=== PATIENT | male | born 1985 | race Two or more races ===

== ENCOUNTER 2021-11-12 21:00 | Inpatient (IN) | payer MEDICAID ==
[~2021-11-12] VITALS: Ht 195.6 cm; Wt 130.1 kg
[2021-11-13] MEDS ORDERED: mag hydrox/Alum hydrox/simeth 30ml oral suspension PO PRN (16:35)
[2021-11-13] MEDS ORDERED: loperamide 2mg capsule PO PRN (16:35)
[2021-11-13] MEDS ORDERED: magnesium hydroxide 30ml (MOM) UD suspension PO PRN (16:35)
[2021-11-13] MEDS ORDERED: nicotine 21mg patch - 24 hr TD ONE (16:35)
[2021-11-13] MEDS: acetaminophen 325mg tablet PO PRN ×2 (16:59→18:47)
[2021-11-13] MEDS ORDERED: benztropine 1 mg/ml 2ml ampule IM ONE (17:10)
[2021-11-13] MEDS ORDERED: LORazepam 2 mg/ml vial IM ONE (17:10)
--- NOTE | 2021-11-13 17:57 | NUR ---
Pt admitted from [facility] in [place]. Pt. appeared to be experiencing EPS upon arrival to unit, client appeared agitated, stating he was unable to control his eye movements with his eyes fixed to the ceiling. IM Ativan and Benadryl administered with effective results. Pt. experiencing auditory hallucinations telling him to kill himself and he should be . Pt. placed on 5150 for DTS/GD.
[2021-11-13] MEDS ORDERED: FLU VACC QS2021-22(6MOS UP)/PF 60 MCG/0.5 ML SYRINGE IM ONE (18:05)
[2021-11-13] MEDS ORDERED: pneumococcal 23-VAL P-sac vacc 25 mcg/0.5ml vial IMVAC ONE (18:05)
[2021-11-13 19:31] VITALS: BP 136/85
[2021-11-13] MEDS ORDERED: LORA-269 PO ×2 (20:53→21:28)
[2021-11-13] MEDS ORDERED: DIVA-81 PO (20:53)
[2021-11-13] MEDS ORDERED: OLAN-1 PO (20:53)
[2021-11-13] MEDS ORDERED: DIVA500T9 PO ×2 (20:53→21:28)
[2021-11-13] MEDS ORDERED: LORazepam 1 MG tablet PO PRN (21:05)
[2021-11-13] MEDS ORDERED: DIVA500T39 PO (21:06)
[2021-11-13] MEDS ORDERED: [UNRECOGNIZED DRUG - CODE] PO (21:07)
[2021-11-13] MEDS ORDERED: [UNRECOGNIZED DRUG - CODE] PO (21:09)
[2021-11-13] MEDS ORDERED: clonazePAM 0.5mg tablet PO PRN (21:10)
[2021-11-13] MEDS ORDERED: divalproex 250mg tablet, delayed-release PO SCH (21:10)
[2021-11-13] MEDS ORDERED: divalproex sodium 500mg tablet.DR PO SCH (21:10)
[2021-11-13] MEDS: OLANZapine 5mg rapidly disint. tablet PO SCH (21:18)
[2021-11-13] MEDS: traZODone 50mg tablet PO PRN ×2 (21:19→22:13)
[2021-11-13] MEDS ORDERED: DIVA250T8 PO (21:28)
[2021-11-13] MEDS ORDERED: LORazepam 0.5 MG tablet PO PRN (21:30)
[2021-11-13] MEDS ORDERED: hydrocort. acetate/pramoxine 10gm bottle RC PRN (23:00)
--- NOTE | 2021-11-14 03:00 | NUR ---
Nursing Progress Note: Legal hold: 5150 Client on involuntary status for DTS/DG Report received from CASSANDRA Whittington with use of SBAR Why they are here: Pt admitted from [facility] in [place]. Pt. appeared to be experiencing EPS upon arrival to unit, client appeared agitated, stating he was unable to control his eye movements with his eyes fixed to the ceiling. IM Ativan and Benadryl administered with effective results. Pt. experiencing auditory hallucinations telling him to kill himself and he should be . Pt. placed on 5150 for DTS/GD. Assessment What has happened this shift? Patient was found standing in [address] at change of shift. Patient was polite and cooperative. Patient displayed manic behavior and kept asking for medications including ones he didnt have scheduled. Patient first asked for Tylenol for his right foot pain. Then he ask the nurse if he could have something for his hemorrhoids that had burst. Nurse messaged and got an order for Proctofoam-hc. Patient was given scheduled Flu vaccine in L arm and Pneumonia vaccine in R arm. Patient took night medications including prn trazodone. Patient had to be given trazodone repeat. Patient was very talkative and spent a majority of the shift pacing around the unit and fidgeting with his headphones. S/I, H/I: Denies A/VH: Denies Sleep: See sleep assessment ADL's: independent Group attendance: n/a Were meds taken: Yes Any med S/E: None Mental Status Exam Appearance: Younger male, disheveled, dressed in scrubs Eye contact: Good Behavior: Cooperative, talkative Speech: Clear Mood: manic Affect: Blunted with some brightening Thought process: Linear Thought Content: medications Cognition: A&O X4 Insight: Poor Judgment: Poor Interventions PRN's used: Trazodone x2, Tylenol Therapeutic interventions: Maintained a safe and therapeutic environment, ensured contract for safety, provided clear and simple instructions, monitored behaviors and need for intervention, provided active listening and positive encouragement, encouraged participation on the unit, and maintained q 15min safety checks. Restraints/seclusion/emergency medication: N/A Justification of Continued Inpatient Treatment: DANIEL pt. just had a recent medication adjustment and requires time to allow medications to reach their therapeutic effect. He will discharge sometime next week.
[2021-11-14 07:13] VITALS: BP 133/77
[2021-11-14] MEDS: OLANZapine 5mg rapidly disint. tablet PO SCH (07:30)
[2021-11-14] MEDS: nicotine 21mg patch - 24 hr TD SCH (07:31)
[2021-11-14 07:44] LABS: HEMOGLOBIN A1C 5.5 % (4.5-6.2)
[2021-11-14] MEDS: acetaminophen 325mg tablet PO PRN ×2 (07:55→19:55)
[2021-11-14 09:43] LABS: CHOL/HDL RATIO 3.1 (0.00-4.99); CHOLESTEROL 129 MG/DL (0-200); HDL CHOLESTEROL 41 MG/DL (35-60); TRIGLYCERIDES 70 MG/DL (20-135)
[2021-11-14 09:45] LABS: LDL CHOLESTEROL 76 MG/DL (50-100)
[2021-11-14] MEDS ORDERED: haloperidol lactate 5mg/ml inj ONE (11:19)
[2021-11-14] MEDS ORDERED: diphenhydrAMINE 50 mg/ml inj ONE (11:19)
[2021-11-14] MEDS ORDERED: LORazepam 2 mg/ml vial IM ONE (11:35)
--- NOTE | 2021-11-14 11:56 | NUR ---
EMERGENCY IM Pt was pacing the hallway, becoming increasingly agitated, stating that he doesn't want to be here and he hates taking Zyprexa. He was sitting in the rec room with his fists balled up, so called DANIEL Delgado, during the phone call patient became more aggressive, screaming profanities. Haldol 10 mg IM, Benadryl 50 mg IM, and Ativan 2 mg IM were ordered. Security was at the bedside while injection was administered, and pt was cooperative with the process. 10 min after the injection, pt apologized to staff, stating "I just get so sick of this. I always feel suicidal".
[2021-11-14] MEDS: ibuprofen 200mg tablet PO PRN (15:16)
[2021-11-14] MEDS: NICOTINE POLACRILEX 2 MG LOZENGE BC PRN (17:06)
--- NOTE | 2021-11-14 17:10 | NUR ---
Nursing Progress Note: Legal hold: 5150 Client on involuntary status for DTS/DG Report received from CASSANDRA [place] with use of SBAR Why they are here: Pt admitted from [facility] in [place]. Pt. appeared to be experiencing EPS upon arrival to unit, client appeared agitated, stating he was unable to control his eye movements with his eyes fixed to the ceiling. IM Ativan and Benadryl administered with effective results. Pt. experiencing auditory hallucinations telling him to kill himself and he should be . Pt. placed on 5150 for DTS/GD. Assessment What has happened this shift: Patient is resting quietly in bed at the start of the shift. Cooperative with 1:1 assessment and medications. Endorses hearing voices which he describes as sounding demonic and which tell him to kill himself. Complains of anxiety r/t hearing voices. PRN Ativan is given which appears somewhat helpful. In the late morning the patient has an episode of yelling and swearing. Provider is notified who gives an order for IM Benadryl/ Haldol/ Ativan which is effective. S/I, H/I: Denies A/VH: Denies Sleep: 1 hour in the morning ADL's: Independent Group attendance: No Were meds taken: Yes Any med S/E: None observed or reported Mental Status Exam Appearance: Younger male, disheveled, dressed in scrubs Eye contact: Poor Behavior: Cooperative Speech: Clear, normal rate/ volume Mood: Fine. Affect: Blunted with some brightening Thought process: Circumstantial Thought Content: Demonic voices that tell him to kill himself. Cognition: A&O X4 Insight: Poor Judgment: Poor Interventions PRN's used: Tylenol, Ativan Therapeutic interventions: Maintained a safe and therapeutic environment, ensured contract for safety, provided clear and simple instructions, monitored behaviors and need for intervention, provided active listening and positive encouragement, encouraged participation on the unit, and maintained q 15min safety checks. Restraints/seclusion/emergency medication: IM Benadryl/ Haldol/ Ativan Justification of Continued Inpatient Treatment: PA pt. just had a recent medication adjustment and requires time to allow medications to reach their therapeutic effect. He will discharge sometime next week.
[2021-11-14] MEDS: LORazepam 0.5 MG tablet PO PRN (18:29)
[2021-11-14 19:59] VITALS: BP 133/91
[2021-11-14] MEDS: divalproex sod 250mg ER (24-hour) tablet PO SCH (20:04)
[2021-11-14] MEDS: prazosin 1mg capsule PO SCH (20:04)
[2021-11-14] MEDS: traZODone 50mg tablet PO PRN (20:05)
[2021-11-14] MEDS ORDERED: divalproex sod 250mg ER (24-hour) tablet PO SCH (21:00)
--- NOTE | 2021-11-15 01:11 | NUR ---
Nursing Progress Note: Legal hold: 5150 Client on involuntary status for DTS/DG Report received from CASSANDRA Whittington with use of SBAR Why they are here: Pt admitted from [facility] in [place]. Pt. appeared to be experiencing EPS upon arrival to unit, client appeared agitated, stating he was unable to control his eye movements with his eyes fixed to the ceiling. IM Ativan and Benadryl administered with effective results. Pt. experiencing auditory hallucinations telling him to kill himself and he should be . Pt. placed on 5150 for DTS/GD. Assessment What has happened this shift: Patient found nurse at change of shift. Patient asked nurse for some anxiety medication. Nurse gave patient prn Ativan. Patient then came to nurse asking for Tylenol for his foot. Patient came up to tech 20 minuets later stating he is feeling anxious and suicidal. Tech offered patient warm broth and assisted him to his room to lay down. Nurse checks on patient a few minuets later and patient asked if he could have another B2 shot. Nurse encouraged patient to allow time for the Ativan to kick in while charge calls doctor to see if we can have B2 on stand by in case the Ativan isn't enough. Nurse checked on patient a little while later and patent was observed laughing and talking with other patients. Patient took all night medications including prn trazodone to help him sleep. Patient took medications without issue and went to bed. S/I, H/I: Denies A/VH: Denies Sleep: See sleep assessment ADL's: Independent Group attendance: No Were meds taken: Yes Any med S/E: None observed or reported Mental Status Exam Appearance: Younger male, disheveled, dressed in personal clothing Eye contact: Poor Behavior: Cooperative Speech: Clear, normal rate/ volume Mood: Fine. Affect: Blunted with some brightening Thought process: Circumstantial Thought Content: Getting another B2 shot Cognition: A&O X4 Insight: Poor Judgment: Poor Interventions PRN's used: Tylenol, Ativan Therapeutic interventions: Maintained a safe and therapeutic environment, ensured contract for safety, provided clear and simple instructions, monitored behaviors and need for intervention, provided active listening and positive encouragement, encouraged participation on the unit, and maintained q 15min safety checks. Restraints/seclusion/emergency medication: IM Benadryl/ Haldol/ Ativan Justification of Continued Inpatient Treatment: DANIEL pt. just had a recent medication adjustment and requires time to allow medications to reach their therapeutic effect. He will discharge sometime next week.
[2021-11-15] MEDS: nicotine 21mg patch - 24 hr TD SCH (07:29)
[2021-11-15] MEDS: PALIPERIDONE 3 MG TAB.ER.24 PO SCH (07:29)
[2021-11-15 07:56] VITALS: BP 140/100
[2021-11-15] MEDS: ibuprofen 200mg tablet PO PRN (08:12)
[2021-11-15] MEDS: LORazepam 0.5 MG tablet PO PRN (08:12)
[2021-11-15] MEDS: acetaminophen 325mg tablet PO PRN ×2 (10:59→16:28)
[2021-11-15] MEDS ORDERED: OLANZapine 5mg rapidly disint. tablet PO ONE (11:30)
[2021-11-15] MEDS ORDERED: paliperidone palmitate inj 234 MG/1.5 ML SYRINGE IM ONE (12:25)
[2021-11-15] MEDS ORDERED: clonazePAM 0.5mg tablet PO ONE (13:00)
[2021-11-15] MEDS ORDERED: diphenhydrAMINE 50 mg/ml inj ONE ×2 (13:29→16:53)
[2021-11-15] MEDS ORDERED: haloperidol lactate 5mg/ml inj ONE ×2 (13:30→16:53)
[2021-11-15] MEDS ORDERED: LORazepam 2 mg/ml vial IM ONE ×2 (13:40→17:05)
--- NOTE | 2021-11-15 14:45 | NUR ---
Psychosocial assessment. Christophe is a 36 y/o male who was placed on 5150 by [facility] for danger to self and grave disability. Christophe was initially placed on 5150 on 11/04/21 and was positive for Covid. He continues to endorse SI with a plan to rip his eyes out. He reported command auditory hallucinations telling him to kill himself . He has a long history of mental health treatment and was released from [facility] in 2020. He reported on-going SI with worsening symptoms since being released from [facility]. Christophe reported he was living with his brother in [place] but has "disowned" his family is now homeless. He was fixated on ways to kill himself and that he will do so once released. He also stated he does not feel safe. He reported he would like to be conserved again. He denied any HI. He reported command auditory hallucinations telling him to harm himself. Plan: [employer] C[employer] Supervisor will work with Christophe on a discharge plan. [employer] C[employer] Supervisor will inquire if [facility] plans on conserving him again. JOEL Casanova Addendum: 11/15/21 at 1447 by Hilary ROCA Amended: Links added.
--- NOTE | 2021-11-15 15:08 | NUR ---
Left message for Rc Powers, Clinician with [facility] (ph# [phone]), to inquire about conservatorship. JOEL Casanova
--- NOTE | 2021-11-15 15:45 | NUR ---
Nursing Progress Note: [place] Legal hold: 5150 Client on involuntary status for DTS/DG Report received from CASSANDRA [place] with use of SBAR Why they are here: Pt admitted from [facility] in [place]. Pt. appeared to be experiencing EPS upon arrival to unit, client appeared agitated, stating he was unable to control his eye movements with his eyes fixed to the ceiling. IM Ativan and Benadryl administered with effective results. Pt. experiencing auditory hallucinations telling him to kill himself and he should be . Pt. placed on 5150 for DTS/GD. Assessment What has happened this shift: Patient is resting quietly in bed at the start of the shift. Cooperative with 1:1 assessment and medications. Complains of anxiety in the morning r/t AH. PRN Ativan is given which patient states is ineffective. Headphones are given and the patient paces the unit. He states, I tried walking and that breathing exercise. I tried to lay down. I tried everything and Im still panicking. Provider notified who gives new orders for Klonopin. Klonopin is given but patient complains that it is ineffective. Patient is rubbing his eyes vigorously and stating, They keep rolling back and I cant stop them. Im going to go crazy! Agitation continues to elevate. Provider aware and gives a new order for IM Benadryl/ haldol/ ativan. Patient becomes calmer almost immediately and returns to pacing the unit. S/I, H/I: SI related to AH. No plan A/VH: Command AH telling him to kill himself Sleep: 2 hours in the morning ADL's: Independent Group attendance: Yes Were meds taken: Yes Any med S/E: None observed or reported Mental Status Exam Appearance: Younger male, disheveled, dressed in scrubs Eye contact: Poor Behavior: Cooperative Speech: Clear, normal rate/ volume Mood: anxious Affect: Blunted with some brightening Thought process: Circumstantial Thought Content: Internally preoccupied Cognition: A&O X4 Insight: Poor Judgment: Poor Interventions PRN's used: Tylenol, Motrin, Ativan Therapeutic interventions: Maintained a safe and therapeutic environment, ensured contract for safety, provided clear and simple instructions, monitored behaviors and need for intervention, provided active listening and positive encouragement, encouraged participation on the unit, and maintained q 15min safety checks. Restraints/seclusion/emergency medication: IM Benadryl/ Haldol/ Ativan Justification of Continued Inpatient Treatment: DANIEL pt. just had a recent medication adjustment and requires time to allow medications to reach their therapeutic effect. He will discharge sometime next week. Addendum: 11/15/21 at 1703 by Carmen Holland RN In the late afternoon the patient again becomes increasingly agitated grabbing his head and hitting murry and door. Provider is present who gives another order for IM benadryl/ haldol/ ativan.
[2021-11-15 19:00] VITALS: BP 90/58
[2021-11-15] MEDS: divalproex sod 250mg ER (24-hour) tablet PO SCH (20:18)
[2021-11-15] MEDS: traZODone 50mg tablet PO PRN (20:19)
[2021-11-15] MEDS: prazosin 1mg capsule PO SCH (20:19)
[2021-11-15] MEDS: clonazePAM 0.5mg tablet PO SCH (20:20)
--- NOTE | 2021-11-16 00:49 | NUR ---
Nursing Progress Note: [place] Legal hold: 5150 Client on involuntary status for DTS/DG Report received from CASSANDRA Whittington with use of SBAR Why they are here: Pt admitted from [facility] in [place]. Pt. appeared to be experiencing EPS upon arrival to unit, client appeared agitated, stating he was unable to control his eye movements with his eyes fixed to the ceiling. IM Ativan and Benadryl administered with effective results. Pt. experiencing auditory hallucinations telling him to kill himself and he should be . Pt. placed on 5150 for DTS/GD. Assessment What has happened this shift: Patient was found sleeping at beginning of shift. Patient continues to sleep all shift and does not leave his room even for snack. Patient took all night medication including requested trazodone. Patient took medications and went back to sleep. S/I, H/I: Denies A/VH: Denies Sleep: See sleep assessment ADL's: Independent Group attendance: Yes Were meds taken: Yes Any med S/E: None observed or reported Mental Status Exam Appearance: Younger male, disheveled, dressed in scrubs Eye contact: Poor Behavior: Cooperative Speech: Clear, normal rate/ volume Mood: anxious Affect: Blunted with some brightening Thought process: Circumstantial Thought Content: Internally preoccupied Cognition: A&O X3 Insight: Poor Judgment: Poor Interventions PRN's used: Therapeutic interventions: Maintained a safe and therapeutic environment, ensured contract for safety, provided clear and simple instructions, monitored behaviors and need for intervention, provided active listening and positive encouragement, encouraged participation on the unit, and maintained q 15min safety checks. Restraints/seclusion/emergency medication: IM Benadryl/ Haldol/ Ativan Justification of Continued Inpatient Treatment: PA pt. just had a recent medication adjustment and requires time to allow medications to reach their therapeutic effect. He will discharge sometime next week.
[2021-11-16 07:12] VITALS: BP 131/75
[2021-11-16] MEDS: nicotine 21mg patch - 24 hr TD SCH (07:30)
[2021-11-16] MEDS: clonazePAM 0.5mg tablet PO SCH ×2 (07:31→19:04)
[2021-11-16] MEDS: PALIPERIDONE 3 MG TAB.ER.24 PO SCH (07:31)
[2021-11-16] MEDS ORDERED: clonazePAM 0.5mg tablet PO ONE (08:00)
[2021-11-16] MEDS: acetaminophen 325mg tablet PO PRN ×2 (10:01→19:06)
[2021-11-16] MEDS: LORazepam 0.5 MG tablet PO PRN (13:07)
--- NOTE | 2021-11-16 13:08 | NUR ---
Initial: Pt admit for schizoaffective disorder. Currently on a regular diet and eating well with 100% PO intake of all meals with the exception of only 50% PO intake of starch at lunch 11/15. Overall pt meeting estimated nutrient needs. LBM 11/15. No nutrition intervention implemented at this time. Will continue to follow. Recommendations: 1) Continue regular diet 2) Monitor need for additional protein for satiety; offer snacks 3) Bowel care PRN 4) Weekly scaled weights Addendum: 11/16/21 at [address] Amended: Links added.
[2021-11-16] MEDS ORDERED: benztropine 1mg tablet PO ONE (13:30)
[2021-11-16] MEDS ORDERED: diphenhydrAMINE 50 mg/ml inj ONE (14:02)
[2021-11-16] MEDS ORDERED: haloperidol lactate 5mg/ml inj ONE (14:02)
[2021-11-16] MEDS ORDERED: LORazepam 2 mg/ml vial IM ONE (14:10)
--- NOTE | 2021-11-16 16:30 | NUR ---
Nursing Progress Note: [place] Legal hold: 5150 Client on involuntary status for DTS/DG Report received from CASSANDRA [place] with use of SBAR Why they are here: Pt admitted from [facility] in [place]. Pt. appeared to be experiencing EPS upon arrival to unit, client appeared agitated, stating he was unable to control his eye movements with his eyes fixed to the ceiling. IM Ativan and Benadryl administered with effective results. Pt. experiencing auditory hallucinations telling him to kill himself and he should be . Pt. placed on 5150 for DTS/GD. Assessment What has happened this shift: Patient is resting quietly in bed at the start of the shift. Cooperative with 1:1 assessment and medications. PRN Tylenol given for left ankle pain which appears effective. Patient complains of anxiety. PRN Ativan is given. Shortly thereafter the patient approaches nursing complaining that his eyes are rolling back in his head again and he cant stop it. Provider notified who gives order for Cogentin x1. Patient verbalizes relief from eye rolling but complains that the voices he hears are making him anxious. Patient goes to his room where he begins hitting murry and repeating, I want to ! New order for IM Benadryl/ Haldol/ Ativan is given and appears effective. S/I, H/I: SI related to AH. No plan A/VH: Command AH telling him to kill himself Sleep: 1 hour in the morning ADL's: Independent Group attendance: NA Were meds taken: Yes Any med S/E: None observed or reported Mental Status Exam Appearance: Tall man, disheveled, dressed in green unit scrubs Eye contact: Poor Behavior: Cooperative, agitated at times Speech: Clear, normal rate/ volume Mood: Terrible. Affect: Blunted Thought process: Circumstantial Thought Content: Internally preoccupied. Concerned over his eyes rolling back in his head Cognition: A&O X4 Insight: Poor Judgment: Poor Interventions PRN's used: Tylenol, Ativan Therapeutic interventions: Maintained a safe and therapeutic environment, ensured contract for safety, provided clear and simple instructions, monitored behaviors and need for intervention, provided active listening and positive encouragement, encouraged participation on the unit, and maintained q 15min safety checks. Restraints/seclusion/emergency medication: IM Benadryl/ Haldol/ Ativan Justification of Continued Inpatient Treatment: DANIEL pt. just had a recent medication adjustment and requires time to allow medications to reach their therapeutic effect. He will discharge sometime next week.
[2021-11-16] MEDS: NICOTINE POLACRILEX 2 MG LOZENGE BC PRN (17:48)
[2021-11-16 19:00] VITALS: BP 122/81
[2021-11-16] MEDS: benztropine 1mg tablet PO SCH (20:22)
[2021-11-16] MEDS: traZODone 50mg tablet PO PRN (20:22)
[2021-11-16] MEDS: prazosin 1mg capsule PO SCH (20:22)
[2021-11-16] MEDS: divalproex sod 250mg ER (24-hour) tablet PO SCH (20:22)
--- NOTE | 2021-11-16 22:34 | NUR ---
Nursing Progress Note: [place] Legal hold: 5150 Client on involuntary status for DTS/DG Report received from RN with use of SBAR Why they are here: Pt admitted from [facility] in [place]. Pt. appeared to be experiencing EPS upon arrival to unit, client appeared agitated, stating he was unable to control his eye movements with his eyes fixed to the ceiling. IM Ativan and Benadryl administered with effective results. Pt. experiencing auditory hallucinations telling him to kill himself and he should be . Pt. placed on 5150 for DTS/GD. Assessment What has happened this shift: Pt in hallway at shift change and approaches this nurse stating that he has had a bad day and is very anxious. When asked what is causing him to be anxious pt reports being depressed and wanting to kill himself. Pt states that his legs are cramping up due to shaking so much and being tense. Pt has Klonopin 1mg, Gave early to pt for anxiety and Tylenol for leg cramping. Brought pt snacks and juice. Pt was then calm lying in bed. Brought pt evening meds at med pass, pt took meds w/o complications. Pt went to bed shortly after. S/I, H/I: SI related to AH. No plan A/VH: Command AH telling him to kill himself Sleep:See sleep hours ADL's: Independent Group attendance: NA Were meds taken: Yes Any med S/E: None observed or reported Mental Status Exam Appearance: Tall man, disheveled, dressed in green unit scrubs Eye contact: Poor Behavior: Cooperative, agitated at times Speech: Clear, normal rate/ volume Mood:bad day Affect: Blunted Thought process: Circumstantial Thought Content: Internally preoccupied. depressed Cognition: A&O X4 Insight: Poor Judgment: Poor Interventions PRN's used: Tylenol, Trazodone 50mg Therapeutic interventions: Maintained a safe and therapeutic environment, ensured contract for safety, provided clear and simple instructions, monitored behaviors and need for intervention, provided active listening and positive encouragement, encouraged participation on the unit, and maintained q 15min safety checks. Restraints/seclusion/emergency medication: IM Benadryl/ Haldol/ Ativan Justification of Continued Inpatient Treatment: PA pt. just had a recent medication adjustment and requires time to allow medications to reach their therapeutic effect. He will discharge sometime next week.
[2021-11-17] MEDS: nicotine 21mg patch - 24 hr TD SCH (07:58)
[2021-11-17] MEDS: haloperidol 5mg tablet PO SCH (07:59)
[2021-11-17] MEDS: benztropine 1mg tablet PO SCH ×2 (07:59→20:34)
[2021-11-17] MEDS: clonazePAM 0.5mg tablet PO SCH ×3 (07:59→20:34)
[2021-11-17 08:25] VITALS: BP 118/51
[2021-11-17] MEDS: NICOTINE POLACRILEX 2 MG LOZENGE BC PRN ×2 (11:19→20:39)
[2021-11-17] MEDS: ibuprofen 200mg tablet PO PRN (11:58)
[2021-11-17] MEDS ORDERED: haloperidol 5mg tablet PO ONE (12:25)
[2021-11-17] MEDS ORDERED: LORazepam 1 MG tablet PO ONE ×2 (12:25→16:40)
[2021-11-17] MEDS ORDERED: haloperidol 1mg tablet PO PRN (14:40)
[2021-11-17] MEDS ORDERED: haloperidol 1mg tablet PO ONE ×2 (14:45→14:50)
[2021-11-17] MEDS: acetaminophen 325mg tablet PO PRN (16:56)
[2021-11-17] MEDS ORDERED: ziprasidone IM 20mg inj **IM only IM ONE (17:45)
[2021-11-17] MEDS ORDERED: diphenhydrAMINE 50 mg/ml inj ONE (17:46)
[2021-11-17] MEDS ORDERED: LORazepam 2 mg/ml vial IM ONE (18:05)
--- NOTE | 2021-11-17 18:13 | NUR ---
Nursing Progress Note: Legal hold: 5250 Client on involuntary status for DTS/DG Report received from PRIYA [place] with use of SBAR Why they are here: Pt admitted from [facility] in [place]. Pt. appeared to be experiencing EPS upon arrival to unit, client appeared agitated, stating he was unable to control his eye movements with his eyes fixed to the ceiling. IM Ativan and Benadryl administered with effective results. Pt. experiencing auditory hallucinations telling him to kill himself and he should be . Pt. placed on 5150 for DTS/GD. Assessment Received patient while he was ambulated up and down the hallways before breakfast. Went to patients room to administer his 0800 medications, complete Physical Assessment and 1:1 Patient Interview. Patient reports I have been hearing voices. Im not sure what they want me to do, but I still hear them. Patient went to the [facility] for breakfast and socialized with others. Patient pleasant when interacting with others. Patient slept most of the morning, and was awake for snack then lunch. At approximately 1226, patient had seen ROVERTO Rodriguez. Jennifer ordered Haldol 5mg and Ativan 1mg po now. Given at 1226. Patient continued to experience hallucinations, not known if they are auditory or visual hallucinations as patient did not disclose. Encourage the patient to lie down on his bed and rest after these medications administered. At approximately 1446, Jennifer gave a verbal order for Haldol 2mg po which was given immediately. Again, reinforced that patient lie down in his bed, and patient was walking up and down the hallways with his eyes almost closed. Patient went directly to Jennifer at 1641 and Jennifer gave an order for Ativan 1mg po now. Patient asked for Tylenol for his foot at 1700. Patient was redirected to return to his room. (1730) Patient informed that resting does not help and stated I want to leave today. Informed patient that he can discuss the medications with the MD in the morning. Patient left the door of the charting room and returned to the dining room. Will continue to monitor patient closely. At 1746, the patient walked up to the fire door near room 330, and started hitting the door, approximately 5 times saying You arent doing any damn thing for me here and Im leaving. Jennifer consulted and patient received Geodon 20mg IM, Benadryl 50 mg IM, and Ativan 2mg IM. Security was called when patient started hitting the fire doors and responded promptly. S/I, H/I: Denies A/VH: Patient states Im having hallucinations, but will not disclose if they are auditory or Sleep: 2 hour morning nap. ADL's: Independent Group attendance: No Group Meeting held today. Were meds taken: Yes, without hesitation. Any med S/E: None observed or reported Mental Status Exam Appearance: Tall man, disheveled, dressed in green unit scrubs Eye contact: Poor Behavior: Cooperative, agitated at times Speech: Clear, normal rate/ volume Mood: Telma been hearing voices. Affect: Blunted Thought process: Circumstantial Thought Content: Cognition: A&O X4 Insight: Poor Judgment: Poor Interventions PRN's used: Tylenol, Trazodone 50mg Therapeutic interventions: Maintained a safe and therapeutic environment, ensured contract for safety, provided clear and simple instructions, monitored behaviors and need for intervention, provided active listening and positive encouragement, encouraged participation on the unit, and maintained q 15min safety checks. Restraints/seclusion/emergency medication: IM Benadryl/ Haldol/ Ativan Justification of Continued Inpatient Treatment: DANIEL pt. just had a recent medication adjustment and requires time to allow medications to reach their therapeutic effect. He will discharge sometime next week.
[2021-11-17] MEDS: divalproex sod 250mg ER (24-hour) tablet PO SCH (20:34)
[2021-11-17] MEDS: traZODone 50mg tablet PO PRN (20:34)
[2021-11-17 20:59] VITALS: BP 104/64
[2021-11-17] MEDS: prazosin 1mg capsule PO SCH (21:00)
--- NOTE | 2021-11-18 01:05 | NUR ---
Nursing Progress Note: Legal hold: 5250 Client on involuntary status for DTS/DG Report received from PRIYA Dixon with use of SBAR Why they are here: Pt admitted from [facility] in [place]. Pt. appeared to be experiencing EPS upon arrival to unit, client appeared agitated, stating he was unable to control his eye movements with his eyes fixed to the ceiling. IM Ativan and Benadryl administered with effective results. Pt. experiencing auditory hallucinations telling him to kill himself and he should be . Pt. placed on 5150 for DTS/GD. Assessment Pt asleep at shift change. Pt woken around 1900 by roommate. Asked pt how he was feeling, pt stated he was fine, asked he was hearing voices, "not right now." Pt joined cohorts in community room. Pt ate snack at snack time, asked for a sandwich because he did not get a dinner. Chips and a sandwich were provided. Pt asked for a nicotine lozenge with evening meds. Pt took evening meds w/o complications. Pt went to bed shortly after. S/I, H/I: Denies A/VH: Denies, "not right now" Sleep: See sleep hours ADL's: Independent Group attendance: No Group in the evening Were meds taken: Yes, without hesitation. Any med S/E: None observed or reported Mental Status Exam Appearance: Tall man, disheveled, dressed in green unit scrubs Eye contact: Poor Behavior: Cooperative,groggy Speech: Clear, normal rate/ volume Mood: sluggish, tired Affect: Blunted Thought process: Circumstantial Thought Content: Cognition: A&O X4 Insight: Poor Judgment: Poor Interventions PRN's used: Trazodone 50mg, Nicotine lozenge Therapeutic interventions: Maintained a safe and therapeutic environment, ensured contract for safety, provided clear and simple instructions, monitored behaviors and need for intervention, provided active listening and positive encouragement, encouraged participation on the unit, and maintained q 15min safety checks. Restraints/seclusion/emergency medication: IM Benadryl/ Haldol/ Ativan Justification of Continued Inpatient Treatment: PA pt. just had a recent medication adjustment and requires time to allow medications to reach their therapeutic effect. He will discharge sometime next week.
[2021-11-18 07:40] VITALS: BP 98/48
[2021-11-18] MEDS: haloperidol 5mg tablet PO SCH (08:56)
[2021-11-18] MEDS: benztropine 1mg tablet PO SCH ×2 (08:56→21:06)
[2021-11-18] MEDS: nicotine 21mg patch - 24 hr TD SCH (08:57)
[2021-11-18] MEDS: clonazePAM 0.5mg tablet PO SCH ×3 (08:57→21:06)
--- NOTE | 2021-11-18 09:17 | NUR ---
Spoke to Rc with [facility] ([phone]) and informed him that Christophe wants to get conserved again. He reported Christophe was recently released from conservatorship and his brother, Conrad, offered 3rd democrat assistance. He reported Christophe had been kicked out of his placement while conserved due to punching holes in the murry and property damage. He reported that was when his brother offered 3rd democrat. The brother, Conrad, [address] in [place]. He reported since getting off conservatorship, Christophe, has had quite a few contacts with law enforcement as well as hospitalizations at [facility]. Rc suggested software writer call Conrad to see if Christophe can return to his home despite Christophe stating he is homeless. Rc reported he has a tx meeting on in which Public Guardian is involved and he will inquire about conservatorship. Called Christophe's brother, Conrad Alfonso (ph# [phone]). He was unaware that Christophe is at [facility], he thought he had gone to [facility]. He reported Christophe tends to stop his meds, use maijuana, and "go off the hook". He reported he last saw Christophe when he was picked up by police due to his behavior. He reported Christophe can return to his home as long as he continues to take his medications. Conrad did say that he works pr internship and cannot monitor Christophe 30/03. He reported he thinks Christophe should probably get conserved again. JOEL Casanova
--- NOTE | 2021-11-18 09:35 | NUR ---
MED LIST FROM [facility] Most recent med list from [facility]: Clonazepam 1.5 mg Q8H Haldol 10 mg QHS Prazosin 1 mg QHS Wellbutrin XL 300 mg QAM Depakote 1750 MG QHS Clomipramine 50 mg QHS Cogentin 1mg at BID DSS 100 mg BID Senna 8.6 mg 2 tabs BID JOEL Casanova
[2021-11-18] MEDS: NICOTINE POLACRILEX 2 MG LOZENGE BC PRN ×3 (12:11→19:45)
[2021-11-18] MEDS: haloperidol 1mg tablet PO PRN (15:39)
[2021-11-18] MEDS: hydrOXYzine 25 MG tablet PO PRN (15:40)
[2021-11-18] MEDS ORDERED: LORazepam 2 mg/ml vial IM ONE (16:30)
--- NOTE | 2021-11-18 18:03 | NUR ---
Nursing Progress Note: Legal hold: 5250 Client on involuntary status for DTS/DG Report received from PRIYA Norris with use of SBAR Why they are here: Pt admitted from [facility] in [place]. Pt. appeared to be experiencing EPS upon arrival to unit, client appeared agitated, stating he was unable to control his eye movements with his eyes fixed to the ceiling. IM Ativan and Benadryl administered with effective results. Pt. experiencing auditory hallucinations telling him to kill himself and he should be . Pt. placed on 5150 for DTS/GD. laundry helper received pt. asleep at start of shift. Pt. refused breakfast and went back to sleep. Pt. awoke mid-morning. 1:1 done at bedside. Pt. endorses hearing voices, but not currently. Pt. reports anxiety about his discharge plan. Pt. spoke with his brother and seemed to be happy that his brother offered to let him come back to live with him. However, pt. later stated, I destroyed my brothers earpods, hes going to be pissed when I tell him I actually dont want to go back to live with my brother. Pt. then states that he wants to be conserved. Pt. becomes increasingly agitated throughout the afternoon and given PRN Atarax 100mg po and Haldol 5mg po with minimal effect. RN received order for Ativan 2mg IM and pt. received with good effect. S/I, H/I: Denies A/VH: Not right now. Sleep: Pt. slept in until mid-morning. Pt. napped intermittently throughout the day. ADL's: Independent. Pt. showered today. Group attendance: No Were meds taken: Yes Any med S/E: Denies. None observed. Mental Status Exam Appearance: Tall man, disheveled, wearing green unit scrubs Eye contact: Minimal Behavior: Cooperative, but easily becomes anxious and agitated. Pt. socially withdrawn. Pacing the hallway. Speech: Pt. becomes hyperverbal with pressured speech at times. Mood: Anxious and agitated. Affect: Blunted Thought process: Circumstantial Thought Content: Concern about discharge plan. Cognition: A&O X4 Insight: Poor Judgment: Poor Interventions PRN's used: Atarax 100mg x1, Haldol 5mg po. Ativan 2mg IM Therapeutic interventions: Maintained a safe and therapeutic environment, ensured contract for safety, provided clear and simple instructions, monitored behaviors and need for intervention, provided active listening and positive encouragement, encouraged participation on the unit, and maintained q 15min safety checks. Restraints/seclusion/emergency medication: None Justification of Continued Inpatient Treatment: DANIEL pt. just had a recent medication adjustment and requires time to allow medications to reach their therapeutic effect. He will discharge sometime next week.
[2021-11-18 20:00] VITALS: BP 133/82
[2021-11-18] MEDS: prazosin 1mg capsule PO SCH (21:06)
[2021-11-18] MEDS: traZODone 50mg tablet PO PRN (21:06)
[2021-11-18] MEDS: divalproex sod 250mg ER (24-hour) tablet PO SCH (21:07)
--- NOTE | 2021-11-19 05:18 | NUR ---
Nursing Progress Note: Legal hold: 5250 Client on involuntary status for DTS/DG Report received from PRIYA Whittington with use of SBAR Why they are here: Pt admitted from [facility] in [place]. Pt. appeared to be experiencing EPS upon arrival to unit, client appeared agitated, stating he was unable to control his eye movements with his eyes fixed to the ceiling. IM Ativan and Benadryl administered with effective results. Pt. experiencing auditory hallucinations telling him to kill himself and he should be . Pt. placed on 5150 for DTS/GD. Assessment What happened this shift: Patient watching TV with peers at the beginning of shift. Pleasant and cooperative with care; compliant with medication. PRN Trazodone and Nicotine lozenges provided; Nicotine patch removed/discarded by staff. Patient denies SI, HI, A/VH this shift. Reports feeling happy with conservatorship or going back to live with his brother. Patient continued, "I didn't realize my brother cared but actually he does." Patient participated in HS snack prior to bed; observed sleeping and does not appear to be having difficulty. S/I, H/I: Denies A/VH: Denies Sleep: Refer to sleep assessment ADL's: Independent Group attendance: No Were meds taken: Yes Any med S/E: Denies. None observed or reported Mental Status Exam Appearance: Neat, appropriately dressed in green unit attire Eye contact: Fair Behavior: Pleasant and cooperative, social Speech: Clear, audible, somewhat pressured Mood: Euthymic, mild anxiety Affect: Blunted Thought process: Linear Thought Content: Meeting needs, brother, concern for discharge plan Cognition: A&O X4 Insight: Poor Judgment: Poor Interventions PRN's used: Trazodone and Nicotine lozenges Therapeutic interventions: Maintained a safe and therapeutic environment, ensured contract for safety, provided clear and simple instructions, monitored behaviors and need for intervention, provided active listening and positive encouragement, encouraged participation on the unit, and maintained q 15min safety checks. Restraints/seclusion/emergency medication: None Justification of Continued Inpatient Treatment: PA pt. just had a recent medication adjustment and requires time to allow medications to reach their therapeutic effect. He will discharge sometime next week.
[2021-11-19 07:32] VITALS: BP 118/54
[2021-11-19] MEDS: nicotine 21mg patch - 24 hr TD SCH (08:35)
[2021-11-19] MEDS: clonazePAM 0.5mg tablet PO SCH ×3 (08:35→20:49)
[2021-11-19] MEDS: benztropine 1mg tablet PO SCH ×2 (08:35→20:48)
[2021-11-19] MEDS: haloperidol 5mg tablet PO SCH (08:35)
--- NOTE | 2021-11-19 09:28 | NUR ---
Pt. attended group today. He participated in an art expression called, the Path to Wellness where they had to draw out their path to wellness in picture form with steps they will take to keep them well. Pt. engaged well, at first he seemed a bit reluctant but once he started drawing he appeared to enjoy himself. He wrote out some appropriate steps he felt he needed to keep himself well. He was able to appropriately share his thoughts with group. At the end of the group he reported that he will be coming back to groups because he felt that was very helpful. His thought content and thought process were WNL. His demeanor was calm and pleasant. Preeti Mohan LCSW
[2021-11-19] MEDS: NICOTINE POLACRILEX 2 MG LOZENGE BC PRN ×2 (13:46→17:24)
--- NOTE | 2021-11-19 14:04 | NUR ---
Spoke to Rc at [facility] (ph#[phone]). He reported he spoke to Chrsitophe's brother, Conrad, who stated he will continue to offer 3rd libertarian support contingent upon medication compliance and abstaining from substances. Rc requested a conference call with himself, Conrad, Christophe, and sheet writer to discuss Christophe returning to Conrad's home and what is expected of him. Plan: Conference call is tentatively scheduled for noon tomorrow. JOEL Casanova
[2021-11-19] MEDS: haloperidol 1mg tablet PO PRN (16:23)
[2021-11-19] MEDS: hydrOXYzine 25 MG tablet PO PRN (16:23)
--- NOTE | 2021-11-19 17:37 | NUR ---
Nursing Progress Note: Legal hold: 5250 Client on involuntary status for DTS/DG Report received from PRIYA Clayton with use of SBAR Why they are here: Pt admitted from [facility] in [place]. Pt. appeared to be experiencing EPS upon arrival to unit, client appeared agitated, stating he was unable to control his eye movements with his eyes fixed to the ceiling. IM Ativan and Benadryl administered with effective results. Pt. experiencing auditory hallucinations telling him to kill himself and he should be . Pt. placed on 5150 for DTS/GD. automotive services manager received pt. asleep at start of shift. Pt. awoke for breakfast and took all medication. Pt. reports that he is no longer hearing voices nor does he feels suicidal. Pt. reports he does not want to go back to live with his brother but would rather be conserved. In the afternoon pt. became increasingly anxious and received PRN Atarax 100mg and Haldol 5mg po with good effect. Pt. observed alternating between pacing and lying in his bed and napping. S/I, H/I: Denies A/VH: Denies Sleep: Pt. slept 7.75 hrs on NOC shift and napped intermittently throughout the day. ADL's: Independent. Pt. showered today. Group attendance: No Were meds taken: Yes Any med S/E: Denies. None observed. Mental Status Exam Appearance: Clean and neat, wearing green scrubs. Eye contact: Minimal Behavior: Cooperative, anxious, pacing hallway or withdrawing to his room and lying in bed. Speech: Pt. becomes hyper-verbal with pressured speech at times. Mood: Anxious Affect: Blunted Thought process: Linear Thought Content: Perseverates on wanting to be conserved. Cognition: A&O X4 Insight: Poor Judgment: Poor Interventions PRN's used: Atarax 100mg x1, Haldol 5mg po Therapeutic interventions: Maintained a safe and therapeutic environment, ensured contract for safety, provided clear and simple instructions, monitored behaviors and need for intervention, provided active listening and positive encouragement, encouraged participation on the unit, and maintained q 15min safety checks. Restraints/seclusion/emergency medication: None Justification of Continued Inpatient Treatment: PA pt. just had a recent medication adjustment and requires time to allow medications to reach their therapeutic effect. He will discharge sometime next week.
[2021-11-19 20:00] VITALS: BP 133/68
[2021-11-19] MEDS: prazosin 1mg capsule PO SCH (20:48)
[2021-11-19] MEDS: traZODone 50mg tablet PO PRN (20:48)
[2021-11-19] MEDS: divalproex sod 250mg ER (24-hour) tablet PO SCH (20:48)
--- NOTE | 2021-11-20 04:46 | NUR ---
Nursing Progress Note: Legal hold: 5250 Client on involuntary status for DTS/DG Report received from PRIYA Whittington with use of SBAR Why they are here: Pt admitted from [facility] in [place]. Pt. appeared to be experiencing EPS upon arrival to unit, client appeared agitated, stating he was unable to control his eye movements with his eyes fixed to the ceiling. IM Ativan and Benadryl administered with effective results. Pt. experiencing auditory hallucinations telling him to kill himself and he should be . Pt. placed on 5150 for DTS/GD. Assessment What happened this shift: Pt was asking to shave at change of shift and was assisted with shaving. Pt states his day is "really good" and smiles. Pt is pleasant cooperative and socializing with peers and staff. Pt spent a lot of time walking in the wagner. Pt took meds at HS med pass. Pt asked for ibuprofen for sore feet and was provided with prn before going to bed. S/I, H/I: Denies A/VH: Denies Sleep: see sleep hours ADL's: Independent. Pt. showered today. Group attendance: No Were meds taken: Yes Any med S/E: Denies. None observed. Mental Status Exam Appearance: Clean and neat, wearing green scrubs. Eye contact: Minimal Behavior: Cooperative, anxious, pacing hallway or withdrawing to his room and lying in bed. Speech: Pt. becomes hyper-verbal with pressured speech at times. Mood: Anxious Affect: Blunted Thought process: Linear Thought Content: Perseverates on wanting to be conserved. Cognition: A&O X4 Insight: Poor Judgment: Poor Interventions PRN's used: trazodone, ibuprofen Therapeutic interventions: Maintained a safe and therapeutic environment, ensured contract for safety, provided clear and simple instructions, monitored behaviors and need for intervention, provided active listening and positive encouragement, encouraged participation on the unit, and maintained q 15min safety checks. Restraints/seclusion/emergency medication: None Justification of Continued Inpatient Treatment: DANIEL pt. just had a recent medication adjustment and requires time to allow medications to reach their therapeutic effect. He will discharge sometime next week.
[2021-11-20 07:28] VITALS: BP 104/60
[2021-11-20] MEDS: benztropine 1mg tablet PO SCH ×2 (07:30→19:41)
[2021-11-20] MEDS: clonazePAM 0.5mg tablet PO SCH ×3 (07:30→19:41)
[2021-11-20] MEDS: haloperidol 5mg tablet PO SCH (07:30)
[2021-11-20] MEDS: nicotine 21mg patch - 24 hr TD SCH (07:31)
[2021-11-20] MEDS: NICOTINE POLACRILEX 2 MG LOZENGE BC PRN ×4 (08:12→19:44)
[2021-11-20] MEDS: hydrOXYzine 25 MG tablet PO PRN (09:34)
[2021-11-20] MEDS: haloperidol 1mg tablet PO PRN (09:34)
--- NOTE | 2021-11-20 09:54 | NUR ---
Pt. attended group today. Each pt. scaled their mood and anxiety level today to practice scaling. We discussed how this can be used as a safety plan tying coping skills to each increment on the scale. Pts. then took some time to fill out a Strengths/Qualities sheet and shared with the group. Pt. engaged well in the group. He shared his strengths and qualities willingly with the group. He was alert and oriented X 4. His thought content was a but hard to follow at times but he was able to get his basic thoughts across. He appeared to enjoy socializing with his peers. His demeanor was calm and pleasant. Preeti Mohan LCSW
[2021-11-20] MEDS: ibuprofen 200mg tablet PO PRN ×2 (10:18→19:59)
--- NOTE | 2021-11-20 17:31 | NUR ---
Nursing Progress Note: Legal hold: 5250 Client on involuntary status for DTS/DG Report received from PRIYA Clayton with use of SBAR Why they are here: Pt admitted from [facility] in [place]. Pt. appeared to be experiencing EPS upon arrival to unit, client appeared agitated, stating he was unable to control his eye movements with his eyes fixed to the ceiling. IM Ativan and Benadryl administered with effective results. Pt. experiencing auditory hallucinations telling him to kill himself and he should be . Pt. placed on 5150 for DTS/GD. industrial electrician journeyman received pt. asleep in bed at start of shift. Pt. awoke before breakfast and took all medications. 1:1 done at bedside, pt. reports increased anxiety, states, I was told now that Im not going to be conserved I dont want to move back in with my brother. Pt. denies all psych symptoms. Pt. pacing the wagner and clenching his fist. Pt. offered PRN medication and given Atarax 100mg and Haldol 5mg po with moderate effect. In the afternoon pt. reported feeling better and feels like his medications are helping him. S/I, H/I: Denies A/VH: Denies Sleep: Pt. slept 7 hrs on NOC shift and napped intermittently throughout the day. ADL's: Independent. Group attendance: Yes Were meds taken: Yes Any med S/E: Denies. None observed. Mental Status Exam Appearance: Clean and neat, wearing green scrubs. Eye contact: Minimal Behavior: Cooperative, anxious, pacing hallway or withdrawing to his room and lying in bed. Speech: Pt. becomes hyper-verbal with pressured speech at times. Mood: Anxious Affect: Blunted Thought process: Linear Thought Content: Perseverates on not wanting to go back to live with his brother. Cognition: A&O X4 Insight: Poor Judgment: Poor Interventions PRN's used: Atarax 100mg x1, Haldol 5mg po x1 Therapeutic interventions: Maintained a safe and therapeutic environment, ensured contract for safety, provided clear and simple instructions, monitored behaviors and need for intervention, provided active listening and positive encouragement, encouraged participation on the unit, and maintained q 15min safety checks. Restraints/seclusion/emergency medication: None Justification of Continued Inpatient Treatment: DANIEL pt. just had a recent medication adjustment and requires time to allow medications to reach their therapeutic effect. He will discharge sometime next week.
[2021-11-20] MEDS: divalproex sod 250mg ER (24-hour) tablet PO SCH (19:41)
[2021-11-20] MEDS: traZODone 50mg tablet PO PRN (19:41)
[2021-11-20] MEDS: prazosin 1mg capsule PO SCH (19:41)
[2021-11-20] MEDS: acetaminophen 325mg tablet PO PRN (19:47)
[2021-11-20 20:00] VITALS: BP 105/67
--- NOTE | 2021-11-21 01:20 | NUR ---
Nursing Progress Note: Legal hold: 5250 for being a danger to himself and gravely disabled Report received from Trinidad Whittington superintendent production Why they are here: Pt admitted from [facility] in [place]. Pt. appeared to be experiencing EPS upon arrival to unit, client appeared agitated, stating he was unable to control his eye movements with his eyes fixed to the ceiling. IM Ativan and Benadryl administered with effective results. Pt. experiencing auditory hallucinations telling him to kill himself and he should be . Pt. placed on 5150 for DTS/GD. Assessment What has happened this shift: The patient was pleasant when approached for the evening nursing assessment. He stated he was concerned about having to give up coffee when he went home to live with his brother and seemed to be perseverating about that issue. He stated he felt depressed and his anxiety was high. He denied suicidal thoughts or thoughts to harm others. He was medication compliant and denied medication side effects. He appeared clean and well groomed. He answered questions appropriately to what was asked. He has not had any behaviors that have required staff to intervene. Affect was blunted. Speech was spontaneous and with a moderate rate and volume. Justification of Continued Inpatient Treatment: Medication stabilization continues and the plan is for the patient to be transitioned to a long acting injectable for better medication compliance.
[2021-11-21 07:14] VITALS: BP 129/83
[2021-11-21] MEDS: clonazePAM 0.5mg tablet PO SCH ×3 (08:15→20:13)
[2021-11-21] MEDS: benztropine 1mg tablet PO SCH ×2 (08:15→20:14)
[2021-11-21] MEDS: haloperidol 5mg tablet PO SCH (08:15)
[2021-11-21] MEDS: nicotine 21mg patch - 24 hr TD SCH (08:17)
[2021-11-21] MEDS: NICOTINE POLACRILEX 2 MG LOZENGE BC PRN ×2 (11:04→15:54)
[2021-11-21] MEDS: ibuprofen 200mg tablet PO PRN (11:04)
[2021-11-21 11:28] VITALS: BP_SYST 121; BP_SYST 125; BP_SYST 133; BP_DIAS 61; BP_DIAS 76; BP_DIAS 79
--- NOTE | 2021-11-21 15:41 | NUR ---
Nursing Progress Note: Legal hold: 5250 Client on involuntary status for DTS/GD Report received from PRIYA Clayton with use of SBAR Why they are here: Pt admitted from [facility] in [place]. Pt. appeared to be experiencing EPS upon arrival to unit, client appeared agitated, stating he was unable to control his eye movements with his eyes fixed to the ceiling. IM Ativan and Benadryl administered with effective results. Pt. experiencing auditory hallucinations telling him to kill himself and he should be . Pt. placed on 5150 for DTS/GD. Assessment What happened this shift: Pt was up for breakfast. Pt was cooperative with medications. Pt rated his depression at a 2/10. Pt denied SI/HI/AH/VH. Pt reports that he is bored. Pt c/o 6/10 bilateral foot pain from walking around at 1104 and was given PRN Motrin 600 mg along with a nicotine lozenge with good effect. When hospitalist Dr Fontaine came to see the patient today, pt complained of dizziness and rectal bleeding after BMs. Dr Fontaine ordered a set of orthostatic vital signs which was negative for orthostatic hypotension and Colace 100 mg PO BID. S/I, H/I: Pt denies A/VH: Pt denies Sleep: Pt slept 8.5 hours last night per noc shift report. ADL's: Independent Group attendance: No Were meds taken: Yes Any med S/E: Pt c/o dizziness. Mental Status Exam Appearance: Tall, large man with short brown hair and a small balding patch back of head dressed initially in black sweats and a black and white plaid shirt but then changed in to clean green unit scrubs. Eye contact: Fair to good. Behavior: Pleasant, cooperative, paces, listens to radio headphones. Speech: Clear, audible. Mood: "Bored." Affect: Blunted Thought process: Linear Thought Content: He's bored, dizzy, and his feet hurt. He doesn't like to draw or read and he doesn't know how to play Solitaire. Cognition: A&O X4 Insight: Poor Judgment: Poor Interventions PRN's used: Ibuprofen, nicotine lozenges Therapeutic interventions: 1:1 assessment, establishment of rapport, therapeutic communication, active listening, ensured contract for safety, provided clear and simple instructions, medication administration/education/monitoring, encouragement to attend groups, behavior monitoring and intervention as needed; distraction, redirection, coping skills education, positive reinforcement, and maintained Q 15 minute safety checks. Restraints/seclusion/emergency medication: None Justification of Continued Inpatient Treatment: Pt in need of crisis interruption and medication adjustments and monitoring in a safe and therapeutic environment until stable.
[2021-11-21] MEDS: haloperidol 1mg tablet PO PRN (17:09)
[2021-11-21] MEDS: hydrOXYzine 25 MG tablet PO PRN (17:10)
[2021-11-21 19:47] VITALS: BP 115/59
[2021-11-21] MEDS: docusate sod 100mg capsule PO SCH (20:12)
[2021-11-21] MEDS: divalproex sod 250mg ER (24-hour) tablet PO SCH (20:13)
[2021-11-21] MEDS: prazosin 1mg capsule PO SCH (20:14)
[2021-11-21] MEDS ORDERED: haloperidol decanoate***LONG-ACTING*** 100mg/ml **IM only** inj. IM ONE (21:10)
--- NOTE | 2021-11-22 01:47 | NUR ---
Nursing Progress Note: Legal hold: 5250 Client on involuntary status for DTS/GD Report received from PRIYA Cortes with use of SBAR Why they are here: Pt admitted from [facility] in [place]. Pt. appeared to be experiencing EPS upon arrival to unit, client appeared agitated, stating he was unable to control his eye movements with his eyes fixed to the ceiling. IM Ativan and Benadryl administered with effective results. Pt. experiencing auditory hallucinations telling him to kill himself and he should be . Pt. placed on 5150 for DTS/GD. Assessment What happened this shift: Patient was observed pacing hallways at beginning of shift. Patient complains of feeling uneasy and ask for B2 shot. Nurse encouraged patient to lay down and try to relax. Patient asked nurse for B2 shot 2 more times despite patient eating snacks and socializing with other patients calmly. Patient complains of being bored and continues to ask nurse for a variety of medications. Patient took all night medications and refused prn trazodone stating it was making him sleep in too late. Patient went to bed after finishing snack. Patient was not given Haldol IM due to patient being already asleep. S/I, H/I: Pt denies A/VH: Pt denies Sleep: See sleep assessment ADL's: Independent Group attendance: No Were meds taken: Yes Any med S/E: none Mental Status Exam Appearance: Tall, large man with short brown hair dressed in personal clothing Eye contact: Fair to good. Behavior: Pleasant, cooperative, paces, listens to radio headphones. Speech: Clear, audible. Mood: "anxious." Affect: Blunted Thought process: Linear Thought Content: Patient wants to have a B2 shot to fix unsettled feelings Cognition: A&O X4 Insight: Poor Judgment: Poor Interventions PRN's used: Trazodone Therapeutic interventions: 1:1 assessment, establishment of rapport, therapeutic communication, active listening, ensured contract for safety, provided clear and simple instructions, medication administration/education/monitoring, encouragement to attend groups, behavior monitoring and intervention as needed; distraction, redirection, coping skills education, positive reinforcement, and maintained Q 15 minute safety checks. Restraints/seclusion/emergency medication: None Justification of Continued Inpatient Treatment: Pt in need of crisis interruption and medication adjustments and monitoring in a safe and therapeutic environment until stable.
[2021-11-22 07:36] VITALS: BP 119/71
[2021-11-22] MEDS: benztropine 1mg tablet PO SCH ×2 (08:13→20:05)
[2021-11-22] MEDS: docusate sod 100mg capsule PO SCH ×2 (08:13→20:05)
[2021-11-22] MEDS: haloperidol 5mg tablet PO SCH (08:13)
[2021-11-22] MEDS: clonazePAM 0.5mg tablet PO SCH ×3 (08:14→20:05)
[2021-11-22] MEDS: nicotine 21mg patch - 24 hr TD SCH (08:18)
[2021-11-22] MEDS ORDERED: haloperidol decanoate***LONG-ACTING*** 100mg/ml **IM only** inj. IM ONE ×2 (11:05→11:50)
[2021-11-22] MEDS ORDERED: haloperidol decanoate 50mg/ml 1ml**long-acting** injection IM ONE (11:35)
--- NOTE | 2021-11-22 15:21 | NUR ---
Nursing Progress Note: Legal hold: 5250 Client on involuntary status for DTS/GD Report received from Natalya JOHNSON with use of SBAR Why they are here: Pt admitted from [facility] in [place]. Pt. appeared to be experiencing EPS upon arrival to unit, client appeared agitated, stating he was unable to control his eye movements with his eyes fixed to the ceiling. IM Ativan and Benadryl administered with effective results. Pt. experiencing auditory hallucinations telling him to kill himself and he should be . Pt. placed on 5150 for DTS/GD. Assessment What happened this shift: Pt was up for breakfast. Pt was cooperative with his medications. Pt denied depression, SI/HI/AH/VH. Pt watches TV and listens to the radio headphones. Pt was given SAHNI Haldol Decanoate 50 mg IM in right ventrogluteal site at 1148 with no adverse effects noted. Pt asked what the medication was used for, what it would help with and he was educated. DANIEL Delgado plans for pt to be given another Haldol Dec. injection in 2 weeks. Pt attended group today. Pt did not complain of dizziness or rectal bleeding today. S/I, H/I: Pt denies A/VH: Pt denies Sleep: Pt slept 7.25 hours last night per noc shift report. ADL's: Independent Group attendance: Yes Were meds taken: Yes Any med S/E: None noted or reported. Mental Status Exam Appearance: Tall, large man with short brown hair and a small balding patch back of head dressed in clean green unit scrubs. Eye contact: Good. Behavior: Pleasant, cooperative, paces, listens to radio headphones, watches TV. Speech: Clear, audible. Mood: Calm Affect: Blunted Thought process: Linear Thought Content: Processing the idea of the Haldol Dec. injections. Cognition: A&O X4 Insight: Poor Judgment: Poor Interventions PRN's used: None Therapeutic interventions: 1:1 assessment, establishment of rapport, therapeutic conversation, active listening, ensured contract for safety, provided clear and simple instructions, medication administration/education/monitoring, encouragement to attend groups, behavior monitoring and intervention as needed; distraction, redirection, coping skills education, positive reinforcement, and maintained Q 15 minute safety checks. Restraints/seclusion/emergency medication: None Justification of Continued Inpatient Treatment: Pt in need of crisis interruption and medication adjustments and monitoring in a safe and therapeutic environment until stable.
[2021-11-22] MEDS: NICOTINE POLACRILEX 2 MG LOZENGE BC PRN (16:47)
[2021-11-22] MEDS: hydrOXYzine 25 MG tablet PO PRN (17:19)
[2021-11-22] MEDS: haloperidol 1mg tablet PO PRN (17:21)
[2021-11-22] MEDS: ibuprofen 200mg tablet PO PRN (19:08)
[2021-11-22 19:18] VITALS: BP 120/75
[2021-11-22] MEDS: divalproex sod 250mg ER (24-hour) tablet PO SCH (20:04)
[2021-11-22] MEDS: traZODone 50mg tablet PO PRN (20:06)
[2021-11-22] MEDS: prazosin 1mg capsule PO SCH (20:06)
--- NOTE | 2021-11-23 00:33 | NUR ---
Nursing Progress Note: Legal hold: 5250 Client on involuntary status for DTS/GD Report received from Sebastian POWERS with use of SBAR Why they are here: Pt admitted from [facility] in [place]. Pt. appeared to be experiencing EPS upon arrival to unit, client appeared agitated, stating he was unable to control his eye movements with his eyes fixed to the ceiling. IM Ativan and Benadryl administered with effective results. Pt. experiencing auditory hallucinations telling him to kill himself and he should be . Pt. placed on 5150 for DTS/GD. Assessment What happened this shift: Patient was found standing in hallway at beginning of shift. Patient took a shower before participating in snack. Patient took all night medications including prn trazodone. Patient was given prn ibuprofen to help with foot pain. Patient took all medications without issue and went to bed. S/I, H/I: Pt denies A/VH: Pt denies Sleep: See sleep assessment ADL's: Independent Group attendance: Yes Were meds taken: Yes Any med S/E: None noted or reported. Mental Status Exam Appearance: Tall, large man dressed in clean green unit scrubs. Eye contact: Good. Behavior: Pleasant, cooperative, paces, listens to radio headphones, watches TV. Speech: Clear, audible. Mood: Calm Affect: Blunted Thought process: Linear Thought Content: Processing the idea of the Haldol Dec. injections. Cognition: A&O X4 Insight: Poor Judgment: Poor Interventions PRN's used: None Therapeutic interventions: 1:1 assessment, establishment of rapport, therapeutic conversation, active listening, ensured contract for safety, provided clear and simple instructions, medication administration/education/monitoring, encouragement to attend groups, behavior monitoring and intervention as needed; distraction, redirection, coping skills education, positive reinforcement, and maintained Q 15 minute safety checks. Restraints/seclusion/emergency medication: None Justification of Continued Inpatient Treatment: Pt in need of crisis interruption and medication adjustments and monitoring in a safe and therapeutic environment until stable.
[2021-11-23 08:25] VITALS: BP 130/69
[2021-11-23] MEDS: haloperidol 5mg tablet PO SCH (09:01)
[2021-11-23] MEDS: benztropine 1mg tablet PO SCH ×2 (09:01→20:24)
[2021-11-23] MEDS: docusate sod 100mg capsule PO SCH ×2 (09:01→20:24)
[2021-11-23] MEDS: nicotine 21mg patch - 24 hr TD SCH (09:02)
[2021-11-23] MEDS: clonazePAM 0.5mg tablet PO SCH ×3 (09:02→20:23)
[2021-11-23] MEDS: NICOTINE POLACRILEX 2 MG LOZENGE BC PRN ×2 (15:33→17:37)
--- NOTE | 2021-11-23 17:08 | NUR ---
Nursing Progress Note: Legal hold: 5250 Client on involuntary status for DTS/GD Report received from Tiffanie Ramirez RN with use of SBAR Why they are here: Pt admitted from [facility] in [place]. Pt. appeared to be experiencing EPS upon arrival to unit, client appeared agitated, stating he was unable to control his eye movements with his eyes fixed to the ceiling. IM Ativan and Benadryl administered with effective results. Pt. experiencing auditory hallucinations telling him to kill himself and he should be . Pt. placed on 5150 for DTS/GD. Assessment What happened this shift: Pt was sleepy this morning. Pt declined to get up for breakfast. Pt did get up for morning snack. Pt was cooperative with his medications. Pt's speech was less clear today, he was frequently slurring his words. Pt is on routine Cogentin 2 mg. Pt c/o some dizziness when he stands up. Encouraged fluids and advised pt to use care when changing position. Pt received his first Haldol Dec injection yesterday. Pt denied AH, pt appears depressed and anxious. Pt states that "I am so stressed out." Pt is perseverating on what will happen to him when he is discharged. Pt does not wish to return to live with his brother. Pt states that his brother lives in a very small trailer and they have to share a bed. Pt states that he has an income of $1000 per month but he has to beg cigarettes from his brother. His brother is not his payee though pt states he would prefer if he were. Pt asks about conservatorship repeatedly. Pt seems to think that there are 4 year long conservatorships. Pt approaches this RN in the charting room frequently to voice his concerns. Pt states that he called his brother and "he just keeps telling me he's tired of this shit, to man up and just keep taking my pills...I'm just gonna go on conservatorship, Sri said she would do it. I'm just gonna go on conservatorship and get it over with." Determined that pt had called his brother at least 4 times today. This RN suggested this may be too many times in one day and he probably should not call again today. Pt just approached this nurse to report that he spoke with his mom and she is calling his niece who has a garage converted into a room to see if maybe he could rent it from her. Either that or he may be able to go and stay with another brother who has a bigger place and again pay some rent. Offered encouragement and positive reinforcement that pt was taking the initiative to explore his options. S/I, H/I: Pt denies A/VH: Pt denies Sleep: Pt slept 8.75 hours last night per noc shift report, pt slept in late this morning until just before 1100 snack. ADL's: Independent Group attendance: No groups today. Were meds taken: Yes Any med S/E: Pt was excessively sleepy this morning, he was slurring his words and c/o dizziness when he stands up. Mental Status Exam Appearance: Tall, large man with short brown hair and a small balding patch back of head dressed in black sweat pants and a black and white plaid flannel shirt. Eye contact: Good. Behavior: Paces, frequently approaches this nurse to vent today, made several phone calls. Speech: Slurred today. Mood: Anxious, depressed. Affect: Sullen Thought process: Perseverative Thought Content: He does not want to return to live with his brother in a trailer. Cognition: A&O X4 Insight: Poor Judgment: Poor Interventions PRN's used: Nicotine lozenges. Therapeutic interventions: 1:1 assessment, therapeutic conversation, active listening, ensured contract for safety, provided clear and simple instructions, medication administration/education/monitoring, encouragement to attend groups, behavior monitoring and intervention as needed; distraction, redirection, coping skills education, positive reinforcement, and maintained Q 15 minute safety checks. Restraints/seclusion/emergency medication: None Justification of Continued Inpatient Treatment: Pt in need of crisis interruption and medication adjustments and monitoring in a safe and therapeutic environment until stable.
[2021-11-23 19:00] VITALS: BP 135/76
[2021-11-23] MEDS: ibuprofen 200mg tablet PO PRN (19:04)
[2021-11-23 20:00] VITALS: BP 135/76
[2021-11-23] MEDS: prazosin 1mg capsule PO SCH (20:23)
[2021-11-23] MEDS: divalproex sod 250mg ER (24-hour) tablet PO SCH (20:24)
[2021-11-23] MEDS: traZODone 50mg tablet PO PRN (21:51)
[2021-11-23] MEDS: hydrOXYzine 25 MG tablet PO PRN (21:51)
--- NOTE | 2021-11-23 23:08 | NUR ---
Nursing Progress Note: Legal hold: 5250 Client on involuntary status for DTS/GD Report received from PRIYA Cortes with use of SBAR Why they are here: Pt admitted from [facility] in [place]. Pt. appeared to be experiencing EPS upon arrival to unit, client appeared agitated, stating he was unable to control his eye movements with his eyes fixed to the ceiling. IM Ativan and Benadryl administered with effective results. Pt. experiencing auditory hallucinations telling him to kill himself and he should be . Pt. placed on 5150 for DTS/GD. Assessment What happened this shift: Pt approached this nurse at shift change and asked for an IB Profen for his legs. Pt stated they were hurting and he didn't know why. Pt asked when med pass was. Pt sat in his room for most of the evening making phone calls. Pt asked questions about staying with his mom when he gets out of here. I explained to the pt that he needed to talk to the social and political studies professor about his D/C and what he can do. Pt paced in hallway. Pt ate snack at snack time. Pt took medications w/o complications. Pt continued to pace after med pass. Pt took Trazodone 50mg and 100mg Hydroxyzine for anxiety. Pt went t bev shortly after. S/I, H/I: Pt denies A/VH: Pt denies Sleep: See sleep hours ADL's: Independent Group attendance: No groups in the evening Were meds taken: Yes Any med S/E: Pt was excessively sleepy this morning, he was slurring his words and c/o dizziness when he stands up. Mental Status Exam Appearance: Tall, large man with short brown hair and a small balding patch back of head dressed in black sweat pants and a black and white plaid flannel shirt. Eye contact: Good. Behavior: Paces, made several phone calls. Speech: good Mood: Anxious, depressed. Affect: Sullen Thought process: Perseverative Thought Content: moving in with his mom Cognition: A&O X4 Insight: Poor Judgment: Poor Interventions PRN's used: IB-Profen, Trazodone 50mg, Hydroxyzine 100mg Therapeutic interventions: 1:1 assessment, therapeutic conversation, active listening, ensured contract for safety, provided clear and simple instructions, medication administration/education/monitoring, encouragement to attend groups, behavior monitoring and intervention as needed; distraction, redirection, coping skills education, positive reinforcement, and maintained Q 15 minute safety checks. Restraints/seclusion/emergency medication: None Justification of Continued Inpatient Treatment: Pt in need of crisis interruption and medication adjustments and monitoring in a safe and therapeutic environment until stable.
[2021-11-24 07:35] VITALS: BP 104/70
[2021-11-24] MEDS: haloperidol 5mg tablet PO SCH (07:41)
[2021-11-24] MEDS: benztropine 1mg tablet PO SCH ×2 (07:41→20:00)
[2021-11-24] MEDS: docusate sod 100mg capsule PO SCH ×2 (07:42→20:00)
[2021-11-24] MEDS: clonazePAM 0.5mg tablet PO SCH ×3 (07:42→20:18)
[2021-11-24] MEDS: nicotine 21mg patch - 24 hr TD SCH (07:45)
[2021-11-24] MEDS: NICOTINE POLACRILEX 2 MG LOZENGE BC PRN ×2 (12:11→17:38)
--- NOTE | 2021-11-24 15:15 | NUR ---
Nursing Progress Note: Christophe Koch Legal hold: 5250 Client on involuntary status for DTS/GD Report received from CRN with use of SBAR Why they are here: Pt admitted from [facility] in [place]. Pt. appeared to be experiencing EPS upon arrival to unit, client appeared agitated, stating he was unable to control his eye movements with his eyes fixed to the ceiling. IM Ativan and Benadryl administered with effective results. Pt. experiencing auditory hallucinations telling him to kill himself and he should be . Pt. placed on 5150 for DTS/GD. Assessment What happened this shift: Pt. received sleeping, woke to receive his medication, and 1:1 assessment. Pt. reported he was admitted due to suicidal thoughts but refused current SI. He plans to discharge to his Moms, and she will be my payee He presented as calmer with increased mood stabilization today compared to my previous encounters with him. Pt. reported my increased mg. has helped Pt. attend all meals with cohorts and was observed socially engaging with others occasionally. Pt. napped intermittently throughout the morning, and later requested PRN nicotine lozenges. He was observed often OOB walking around on the phone. S/I, H/I: Denies both A/VH: Denies both Sleep: Intermittent naps throughout the morning. ADL's: Independent Group attendance: NA Were meds taken: Yes Any med S/E: None noted or reported. Mental Status Exam Appearance: Tall, young male, dressed in scrub pants and flannel. Eye contact: Good. Behavior: Calm, cooperative Speech: Clear Mood: Depressed Affect: Sullen Thought process: Perseverative Thought Content: Wants to stay with his Mom Cognition: A&O X4 Insight: Poor Judgment: Poor Interventions PRN's used: Nicotine lozenges Therapeutic interventions: 1:1 assessment, therapeutic conversation, active listening, ensured contract for safety, provided clear and simple instructions, medication administration/education/monitoring, encouragement to attend groups, behavior monitoring and intervention as needed; distraction, redirection, coping skills education, positive reinforcement, and maintained Q 15 minute safety checks. Restraints/seclusion/emergency medication: None Justification of Continued Inpatient Treatment: Pt in need of crisis interruption and medication adjustments and monitoring in a safe and therapeutic environment until stable.
[2021-11-24] MEDS: acetaminophen 325mg tablet PO PRN (18:35)
[2021-11-24] MEDS: haloperidol 1mg tablet PO PRN (19:27)
[2021-11-24 20:00] VITALS: BP 130/85
[2021-11-24] MEDS: traZODone 50mg tablet PO PRN ×2 (20:00→22:39)
[2021-11-24] MEDS: divalproex sod 250mg ER (24-hour) tablet PO SCH (20:00)
[2021-11-24] MEDS: prazosin 1mg capsule PO SCH (20:01)
[2021-11-24] MEDS ORDERED: diphenhydrAMINE 50 mg/ml inj ONE (20:05)
[2021-11-24] MEDS ORDERED: haloperidol lactate 5mg/ml inj IM ONE (20:05)
[2021-11-24] MEDS ORDERED: LORazepam 2 mg/ml vial ONE (20:05)
[2021-11-24] MEDS ORDERED: diphenhydrAMINE 50 mg/ml inj IM ONE (20:05)
[2021-11-24] MEDS ORDERED: haloperidol lactate 5mg/ml inj ONE (20:05)
[2021-11-24] MEDS ORDERED: LORazepam 2 mg/ml vial IM ONE (20:10)
[2021-11-24 21:56] VITALS: BP 130/85
--- NOTE | 2021-11-24 22:05 | NUR ---
Nursing Progress Note: Christophe Koch Legal hold: 5258 Client on involuntary status for DTS/GD Report received from CASSANDRA Cortes with use of SBAR Why they are here: Pt admitted from [facility] in [place]. Pt. appeared to be experiencing EPS upon arrival to unit, client appeared agitated, stating he was unable to control his eye movements with his eyes fixed to the ceiling. IM Ativan and Benadryl administered with effective results. Pt. experiencing auditory hallucinations telling him to kill himself and he should be . Pt. placed on 5150 for DTS/GD. Assessment What happened this shift: Pt on phone at shift change. Pt came up to this nurse and reiterated that his brother had been speaking to his SW and had been told that they can conserve him for three years. Pt started becoming agitated and taking the phone to his room and calling his mother and brother who supposedly was telling the patient that he would be getting conserved. It was brought up to the patient that he probably should refrain from using the phone to talk to family about his DC as they seem to be aggravating the patient and not helping at that moment. Pt was given Haldol 5mg for agitation at that moment. Pt was calm until Danny SANCHEZ walked in and patient approached him quickly to talk about what his family had been telling him. Danny calmed him down as I was getting his evening medications together to help calm him further. Pt began yelling in hallways and threatening his SW. Patient then screamed profanities. Danny SANCHEZ was in the nurses station and ordered a B52 to be given to patient. B52 given w/o complications from the patient. Patient the paced up and down the hallway.Per Danny SANCHEZ Klonopin was held. When offering pt his evening meds the patient lashed out, "I'm not taking anymore stupid pills, I don't even want to be here." Pt continued to pace for an hour. Patient approached this nurse around 2100 and apologized and reported that he did not want to hurt himself or anyone else. He stated that he was frustrated at his family and wanting to go home. Patient then took evening meds w/o complications. Came out at 2230 and wanted another Trazodone, and Hydroxyzine. S/I, H/I: Denies both A/VH: Denies both Sleep: See sleep hours ADL's: Independent Group attendance: No group in the evenings Were meds taken: Yes Any med S/E: None noted or reported. Mental Status Exam Appearance: Tall, young male, dressed in scrub pants and flannel. Eye contact: Good. Behavior: agitated, Speech: Clear Mood: aggravated, upset Affect: sad Thought process: Perseverative Thought Content: Wants to stay with his Mom, reports that him and his brother do not get along Cognition: A&O X4 Insight: Poor Judgment: Poor Interventions PRN's used: Nicotine lozenges, 650mg IB-Profen, Haldol 5mg, Trazodone 50mg X2, 2mg Ativan IM, 10mg Haldol IM, 50mg Benadryl IM. Therapeutic interventions: 1:1 assessment, therapeutic conversation, active listening, ensured contract for safety, provided clear and simple instructions, medication administration/education/monitoring, encouragement to attend groups, behavior monitoring and intervention as needed; distraction, redirection, coping skills education, positive reinforcement, and maintained Q 15 minute safety checks. Restraints/seclusion/emergency medication: None Justification of Continued Inpatient Treatment: Pt in need of crisis interruption and medication adjustments and monitoring in a safe and therapeutic environment until stable.
[2021-11-24] MEDS: hydrOXYzine 25 MG tablet PO PRN (22:39)
[2021-11-25] MEDS: benztropine 1mg tablet PO SCH ×2 (07:19→20:25)
[2021-11-25] MEDS: nicotine 21mg patch - 24 hr TD SCH (07:19)
[2021-11-25] MEDS: haloperidol 5mg tablet PO SCH (07:20)
[2021-11-25] MEDS: clonazePAM 0.5mg tablet PO SCH ×3 (07:20→20:28)
[2021-11-25] MEDS: docusate sod 100mg capsule PO SCH ×2 (07:21→20:26)
--- NOTE | 2021-11-25 07:22 | NUR ---
Reassessment: Noted pt change to carb controlled diet 11/20 and continues to eat well with mostly 100% PO intake of all meals. TC to RN who states pt requested this diet to help with wt control; no hx of DM noted in EMR and A1c 5.5. Pt also noted to be consuming snacks. Overall pt meeting estimated protein needs and likely close to meeting est energy needs w/ snacks. LBM 11/24. No nutrition intervention implemented at this time. Will continue to follow. Recommendations: 1) Continue Carb controlled diet per pt preference; consider changing back to regular to better meet pt's nutritional needs 2) Monitor need for additional protein for satiety; offer snacks 3) Bowel care PRN 4) Weekly scaled weights Addendum: 11/25/21 at [address] Amended: Links added.
[2021-11-25 08:00] VITALS: BP 117/54
[2021-11-25] MEDS: acetaminophen 325mg tablet PO PRN (13:59)
[2021-11-25] MEDS: hydrOXYzine 25 MG tablet PO PRN (15:35)
--- NOTE | 2021-11-25 15:43 | NUR ---
Nursing Progress Note: Christophe Koch Legal hold: [id number] Client on involuntary status for DTS/GD Report received from CRN with use of SBAR Why they are here: Pt admitted from [facility] in [place]. Pt. appeared to be experiencing EPS upon arrival to unit, client appeared agitated, stating he was unable to control his eye movements with his eyes fixed to the ceiling. IM Ativan and Benadryl administered with effective results. Pt. experiencing auditory hallucinations telling him to kill himself and he should be . Pt. placed on 5150 for DTS/GD. Assessment What happened this shift: Pt. received sleeping, woke to receive his medication, and reported feeling too tired to get up for breakfast Later 1:1 assessment completed. Pt. reported feeling tired, because I had a rough night Pt. ate lunch and immediately returned to his room. Later pt. approached telegraphic typewriter repairer repeating himself numerous times stating I cant go to my brothers, you know its not a good idea, I want to go to my Moms I encouraged pt. discuss the arrangement with psychologist social, and provider. Pt. denied needing anything for anxiety, he paced the unit for a short while and used the phone numerous times. Pt. approached telegraphic typewriter repairer c/o NORY, and was given PRN Tylenol. At 1530 pt. approached telegraphic typewriter repairer c/o allot of anxiety he stated Im so stressed out right now my Moms mad at me and wont answer the phone. I encouraged pt. to utilize stress management techniques and take a break from the phone, PRN Atarax given. S/I, H/I: Denies both A/VH: Denies both Sleep: Intermittent naps throughout the morning. ADL's: Independent Group attendance: No Were meds taken: Yes Any med S/E: None noted or reported. Mental Status Exam Appearance: Tall, young male, dressed in scrub pants and flannel. Eye contact: Good. Behavior: Cooperative Speech: Clear Mood: Depressed Affect: Sullen Thought process: Obsessive Thought Content: Wants to go stay with his Mom Cognition: A&O X4 Insight: Poor Judgment: Poor Interventions PRN's used: Atarax, Tylenol Therapeutic interventions: 1:1 assessment, therapeutic conversation, active listening, ensured contract for safety, provided clear and simple instructions, medication administration/education/monitoring, encouragement to attend groups, behavior monitoring and intervention as needed; distraction, redirection, coping skills education, positive reinforcement, and maintained Q 15 minute safety checks. Restraints/seclusion/emergency medication: None Justification of Continued Inpatient Treatment: Pt in need of crisis interruption and medication adjustments and monitoring in a safe and therapeutic environment until stable
[2021-11-25] MEDS: NICOTINE POLACRILEX 2 MG LOZENGE BC PRN (17:36)
[2021-11-25 19:27] VITALS: BP 127/69
[2021-11-25] MEDS: prazosin 1mg capsule PO SCH (20:25)
[2021-11-25] MEDS: divalproex sod 250mg ER (24-hour) tablet PO SCH (20:25)
[2021-11-25] MEDS: traZODone 50mg tablet PO PRN (20:26)
--- NOTE | 2021-11-25 23:52 | NUR ---
Nursing Progress Note: Christophe Koch Legal hold: 5250 Client on involuntary status for DTS/GD Report received from CRN with use of SBAR Why they are here: Pt admitted from [facility] in [place]. Pt. appeared to be experiencing EPS upon arrival to unit, client appeared agitated, stating he was unable to control his eye movements with his eyes fixed to the ceiling. IM Ativan and Benadryl administered with effective results. Pt. experiencing auditory hallucinations telling him to kill himself and he should be . Pt. placed on 5150 for DTS/GD. Assessment What happened this shift: Pt was stating that he would like to get a hold of his mom about his living arrangements at change of shift. Pt is concerned that he gave his mom the wrong information and told her he would be conserved for 3 years. Pt states he told her this because he heard it from his brother. Pt states "I think the doctor is going to vouch for me and then maybe I can live with my mom, I dont think its a good idea to live with my brother." Pt spent time trying to call his mom and pacing anxiously in the wagner. Pt took HS meds after having a snack and went to bed. S/I, H/I: Denies both A/VH: Denies both Sleep: Intermittent naps throughout the morning. ADL's: Independent Group attendance: No Were meds taken: Yes Any med S/E: None noted or reported. Mental Status Exam Appearance: Tall, young male, dressed in scrub pants and flannel. Eye contact: Good. Behavior: Cooperative Speech: Clear Mood: Depressed Affect: Sullen Thought process: Obsessive Thought Content: Wants to go stay with his Mom Cognition: A&O X4 Insight: Poor Judgment: Poor Interventions PRN's used: none Therapeutic interventions: 1:1 assessment, therapeutic conversation, active listening, ensured contract for safety, provided clear and simple instructions, medication administration/education/monitoring, encouragement to attend groups, behavior monitoring and intervention as needed; distraction, redirection, coping skills education, positive reinforcement, and maintained Q 15 minute safety checks. Restraints/seclusion/emergency medication: None Justification of Continued Inpatient Treatment: Pt in need of crisis interruption and medication adjustments and monitoring in a safe and therapeutic environment until stable
[2021-11-26 07:33] VITALS: BP 101/52
[2021-11-26] MEDS: haloperidol 5mg tablet PO SCH (07:36)
[2021-11-26] MEDS: docusate sod 100mg capsule PO SCH ×2 (07:36→20:03)
[2021-11-26] MEDS: benztropine 1mg tablet PO SCH ×2 (07:36→20:03)
[2021-11-26] MEDS: acetaminophen 325mg tablet PO PRN ×2 (07:37→15:49)
[2021-11-26] MEDS: clonazePAM 0.5mg tablet PO SCH ×3 (07:37→20:03)
[2021-11-26] MEDS: nicotine 21mg patch - 24 hr TD SCH ×2 (07:41→07:45)
[2021-11-26] MEDS: hydrOXYzine 25 MG tablet PO PRN (10:28)
--- NOTE | 2021-11-26 11:56 | NUR ---
DISCHARGE PLANNING [facility] Clinician, Rc Powers, came onto the unit to meet with Yordan Saeed PA, and writer editor to discuss discharge plan. Rc gave Christophe the option of returning to his brother's home in [place] or [facility] He got upset when Rc informed him he cannot go to his mother's trailer in [place] that does not have electricity or running water. Christophe got up and left the meeting. He came back shortly later and apologized. Rc called Christophe's brother, Conrad, on speaker phone. Conrad made it clear what his expectations are for Christophe to return there (abstain from drugs, alcohol, caffeine, take meds, and stay away from certain people that use drugs). Christophe agreed to this and stated he wants to return to [facility]. Called Km (ph# [phone]) with [facility] to coordinate transport and follow up appointments. Km reported Christophe needs to change his Medi-kale to [place] since Christophe will be living in [place]. He was hesitant to schedule follow up appointment. Informed him that Christophe will not be able to switch his Medi-kale in time to get his next Haldol Dec injection which will be due on 12/06/21. Called Km back with the address of [facility] and had to leave a message. Requested a call back to confirm transportation and follow up appointment. JOEL Casanova
[2021-11-26] MEDS: NICOTINE POLACRILEX 2 MG LOZENGE BC PRN (15:37)
--- NOTE | 2021-11-26 16:05 | NUR ---
Nursing Progress Note: Christophe Koch Legal hold: 5250 Client on involuntary status for DTS/GD Report received from CRN with use of SBAR Why they are here: Pt admitted from [facility] in [place]. Pt. appeared to be experiencing EPS upon arrival to unit, client appeared agitated, stating he was unable to control his eye movements with his eyes fixed to the ceiling. IM Ativan and Benadryl administered with effective results. Pt. experiencing auditory hallucinations telling him to kill himself and he should be . Pt. placed on 5150 for DTS/GD. Assessment What happened this shift: Patient was asleep at change of shift and up for breakfast. Patient's movement and speech are slow. Sometimes it is difficult to understand him. Patient states he in anxious because he can't live with his mother and states the door will be locked if he goes to [place]. Patient is anxious about the discharge plan. RN gave patient Atarax for anxiety. Patient had a meeting with Hilary and other non-staff personnel to discuss the plan. This is what made patient so anxious. Patient is perseverating on his discharge plan. Patient denies suicidal/homicidal ideation. Patient denies audio/visual hallucinations. S/I, H/I: Denies A/VH: Denies Sleep: Intermittent naps ADL's: Independent Group attendance: No Were meds taken: Yes Any med S/E: None noted or reported. Mental Status Exam Appearance: Tall, young male, dressed in scrub pants and flannel. Eye contact: Good. Behavior: Cooperative Speech: Slow and slurred at times Mood: Depressed Affect: Flat Thought process: Obsessive Thought Content: Wants to go stay with his Mom Cognition: A&O X4 Insight: Poor Judgment: Poor Interventions PRN's used: Atarax, Tylenol Therapeutic interventions: 1:1 assessment, therapeutic conversation, active listening, ensured contract for safety, provided clear and simple instructions, medication administration/education/monitoring, encouragement to attend groups, behavior monitoring and intervention as needed; distraction, redirection, coping skills education, positive reinforcement, and maintained Q 15 minute safety checks. Restraints/seclusion/emergency medication: None Justification of Continued Inpatient Treatment: Pt in need of crisis interruption and medication adjustments and monitoring in a safe and therapeutic environment until stable
[2021-11-26 20:00] VITALS: BP 116/67
[2021-11-26] MEDS: divalproex sod 250mg ER (24-hour) tablet PO SCH (20:03)
[2021-11-26] MEDS: prazosin 1mg capsule PO SCH (20:03)
--- NOTE | 2021-11-27 03:43 | NUR ---
Nursing Progress Note: Legal hold: 5250 Client on involuntary status for DTS/GD Report received from PRIYA Cortes with use of SBAR Why they are here: Pt admitted from [facility] in [place]. Pt. appeared to be experiencing EPS upon arrival to unit, client appeared agitated, stating he was unable to control his eye movements with his eyes fixed to the ceiling. IM Ativan and Benadryl administered with effective results. Pt. experiencing auditory hallucinations telling him to kill himself and he should be . Pt. placed on 5150 for DTS/GD. Assessment What happened this shift: Patient was in the hallway at shift change. He appears fatigued and moves slowly. Patient states he doesn't yet know where he will end up living, but he believes his best option will be his mother, if she allows it. Patient denies all MH symptoms, but appears a little depressed and anxious over his living situation. He states that he doesn't want to be conserved again, so he'll do everything to make that not happen. Patient went to snack and received his HS meds there. S/I, H/I: Denies A/VH: Denies Sleep: See sleep assessment. ADL's: Independent Group attendance: No Were meds taken: Yes Any med S/E: None noted or reported. Mental Status Exam Appearance: Tall, young male, dressed in scrub pants and flannel. Eye contact: Good. Behavior: Cooperative Speech: Clear Mood: Depressed Affect: Sullen Thought process: Obsessive Thought Content: Wants to go stay with his Mom Cognition: A&O X4 Insight: Poor Judgment: Poor Interventions PRN's used: none Therapeutic interventions: 1:1 assessment, therapeutic conversation, active listening, ensured contract for safety, provided clear and simple instructions, medication administration/education/monitoring, encouragement to attend groups, behavior monitoring and intervention as needed; distraction, redirection, coping skills education, positive reinforcement, and maintained Q 15 minute safety checks. Restraints/seclusion/emergency medication: None Justification of Continued Inpatient Treatment: Pt in need of crisis interruption and medication adjustments and monitoring in a safe and therapeutic environment until stable
[2021-11-27] MEDS: benztropine 1mg tablet PO SCH ×2 (07:57→20:09)
[2021-11-27] MEDS: clonazePAM 0.5mg tablet PO SCH ×3 (07:57→20:09)
[2021-11-27] MEDS: docusate sod 100mg capsule PO SCH ×2 (07:58→20:08)
[2021-11-27] MEDS: haloperidol 5mg tablet PO SCH (07:58)
[2021-11-27] MEDS: nicotine 21mg patch - 24 hr TD SCH (08:00)
[2021-11-27 08:13] VITALS: BP 125/60
--- NOTE | 2021-11-27 08:58 | NUR ---
DISCHARGE TOMORROW-11/28/21 [facility] called to report that transportation fell through for today and they will be picking [place] up tomorrow instead. They will call back with an RENE. JOEL Casanova
[2021-11-27] MEDS: NICOTINE POLACRILEX 2 MG LOZENGE BC PRN (10:10)
--- NOTE | 2021-11-27 10:42 | NUR ---
MORNING NEWS ANCHOR 11-12 TOMORROW [facility] called to report they will [place] [facility] tomorrow. JOEL Casanova
[2021-11-27] MEDS: ibuprofen 200mg tablet PO PRN (13:26)
--- NOTE | 2021-11-27 13:44 | NUR ---
Nursing Progress Note: Legal hold: 5250 Client on involuntary status for DTS/GD Report received from NOC Charge, RN with use of SBAR Why they are here: Pt admitted from [facility] in [place]. Pt. appeared to be experiencing EPS upon arrival to unit, client appeared agitated, stating he was unable to control his eye movements with his eyes fixed to the ceiling. IM Ativan and Benadryl administered with effective results. Pt. experiencing auditory hallucinations telling him to kill himself and he should be . Pt. placed on 5150 for DTS/GD. Assessment What happened this shift: Patient was in the hallway at shift change. Patient asking when he will be discharged, I stated that he would have to comply with the rules his brother may imply if he were to move in with him, per notes 11/26/21. As of the date he will be discharged, I was unaware and expressed that to him. Patient denies all MH symptoms, but appears a solemn and anxious over his living situation. Patient has taken all his medications today, and is actively walking the halls and watching tv. S/I, H/I: Denies A/VH: Denies Sleep: See sleep assessment. ADL's: Independent Group attendance: No Were meds taken: Yes Any med S/E: None noted or reported. Mental Status Exam Appearance: Tall, young male, dressed in scrub pants and flannel. Eye contact: Good. Behavior: Cooperative Speech: Clear Mood: anxious Affect: Sullen Thought process: Obsessive Thought Content: When is he going to be discharged. Cognition: A&O X4 Insight: Poor Judgment: Poor Interventions PRN's used: Ibuprophen Therapeutic interventions: 1:1 assessment, therapeutic conversation, active listening, ensured contract for safety, provided clear and simple instructions, medication administration/education/monitoring, behavior monitoring and intervention as needed; distraction, redirection, coping skills education, positive reinforcement, and maintained Q 15 minute safety checks. Restraints/seclusion/emergency medication: None Justification of Continued Inpatient Treatment: Pt in need of crisis interruption and medication adjustments and monitoring in a safe and therapeutic environment until stable
[2021-11-27] MEDS: acetaminophen 325mg tablet PO PRN (17:25)
[2021-11-27 19:51] VITALS: BP 155/74
[2021-11-27] MEDS: traZODone 50mg tablet PO PRN (20:08)
[2021-11-27] MEDS: divalproex sod 250mg ER (24-hour) tablet PO SCH (20:08)
[2021-11-27] MEDS: prazosin 1mg capsule PO SCH (20:08)
--- NOTE | 2021-11-27 21:10 | NUR ---
Nursing Progress Note: Legal hold: 5250 Client on involuntary status for DTS/GD Report received from NOC Charge, RN with use of SBAR Why they are here: Pt admitted from [facility] in [place]. Pt. appeared to be experiencing EPS upon arrival to unit, client appeared agitated, stating he was unable to control his eye movements with his eyes fixed to the ceiling. IM Ativan and Benadryl administered with effective results. Pt. experiencing auditory hallucinations telling him to kill himself and he should be . Pt. placed on 5150 for DTS/GD. Assessment What happened this shift: Pt was walking in the hallway and did some push ups in his room. He isn't looking forward to going to stay with his brother, talks about his brother "starting trouble and eating all the food." Pt is somewhat anxious tonight and asks to have "all the sleep meds I can get." Pt c/o not sleeping well the previous night. Pt was given prn trazodone. S/I, H/I: Denies A/VH: Denies Sleep: See sleep assessment. ADL's: Independent Group attendance: No Were meds taken: Yes Any med S/E: None noted or reported. Mental Status Exam Appearance: Tall, young male, dressed in scrub pants and flannel. Eye contact: Good. Behavior: Cooperative Speech: Clear Mood: anxious Affect: constricted Thought process: Obsessive Thought Content: When is he going to be discharged. Cognition: A&O X4 Insight: Poor Judgment: Poor Interventions PRN's used: none Therapeutic interventions: 1:1 assessment, therapeutic conversation, active listening, ensured contract for safety, provided clear and simple instructions, medication administration/education/monitoring, behavior monitoring and intervention as needed; distraction, redirection, coping skills education, positive reinforcement, and maintained Q 15 minute safety checks. Restraints/seclusion/emergency medication: None Justification of Continued Inpatient Treatment: Pt in need of crisis interruption and medication adjustments and monitoring in a safe and therapeutic environment until stable
[2021-11-28 07:36] VITALS: BP 134/79
[2021-11-28] MEDS: nicotine 21mg patch - 24 hr TD SCH (08:00)
[2021-11-28] MEDS: haloperidol 5mg tablet PO SCH (08:04)
[2021-11-28] MEDS: docusate sod 100mg capsule PO SCH (08:04)
[2021-11-28] MEDS: benztropine 1mg tablet PO SCH (08:04)
[2021-11-28] MEDS: clonazePAM 0.5mg tablet PO SCH ×2 (08:04→12:33)
[2021-11-28] MEDS: acetaminophen 325mg tablet PO PRN (08:07)
[2021-11-28] MEDS ORDERED: NICO-687 TD (10:27)
[2021-11-28] MEDS ORDERED: CLON0.5T4 PO (10:27)
[2021-11-28] MEDS ORDERED: PRAZ1CAP5 PO (10:27)
[2021-11-28] MEDS ORDERED: NICO-907 BC (10:27)
[2021-11-28] MEDS ORDERED: DIVA500T9 PO (10:27)
[2021-11-28] MEDS ORDERED: HALO50AM2 IM (10:27)
--- NOTE | 2021-11-28 10:57 | NUR ---
Pt refused to have pictures retaken as feet are all healed. Addendum: 11/28/21 at 1058 by Blair Costello RN Amended: Links added.
[2021-11-28] MEDS: hydrOXYzine 25 MG tablet PO PRN (11:34)
[2021-11-28] MEDS: ibuprofen 200mg tablet PO PRN (12:33)
--- NOTE | 2021-11-28 13:13 | NUR ---
Nursing Discharge Note Pt was discharged from [facility] at 1245 and picked up by [employer] driver starting gate to take him back home. Pt denies SI and in euthymic mood, looking forward to discharge and future plans. Pt in no acute physical or emotional distress and has been improving since admission. Pt's valuables and belongings inventoried and returned to him. Pt understands discharge plan and instructions and did not want nicotine replacement.
== END 2021-11-28 12:45 | disposition home or self-care (01) | DRG 750 ==
LOC: UNDOADMIN 21:00 → ADULT MH 21:00
PROVIDERS: ADMIT Psychiatry & Neurology Psychiatry; ATTEND Psychiatry & Neurology Psychiatry
PROC: 3E0234Z Introduction of Serum, Toxoid and Vaccine into Muscle, Percutaneous Approach (ICD-10-PCS; principal; 2021-11-13)
PROC: 3E02340 Introduction of Influenza Vaccine into Muscle, Percutaneous Approach (ICD-10-PCS; 2021-11-13)
DX: F25.0 Schizoaffective disorder, bipolar type (principal); R45.851 Suicidal ideations; Z59.00 Homelessness unspecified; G89.29 Other chronic pain; L29.9 Pruritus, unspecified; F17.210 Nicotine dependence, cigarettes, uncomplicated; F19.10 Other psychoactive substance abuse, uncomplicated; F12.10 Cannabis abuse, uncomplicated; F31.9 Bipolar disorder, unspecified; R42 Dizziness and giddiness; F41.9 Anxiety disorder, unspecified; K64.9 Unspecified hemorrhoids; Z88.5 Allergy status to narcotic agent; Z91.410 Personal history of adult physical and sexual abuse; Z23 Encounter for immunization; Z86.16 Personal history of COVID-19; Z79.899 Other long term (current) drug therapy; Z71.6 Tobacco abuse counseling
CPT/HCPCS: 36415; 80061; 80164; 83036; 87081; 90732; 93005; J0515; J1200; J1630; J2060; J2426; J3486; Q0177

== ENCOUNTER 2022-05-27 00:28 | Inpatient (IN) | payer MEDICAID ==
[~2022-05-27] VITALS: Ht 193 cm; Wt 112.1 kg
[~2022-05-27 00:28] MED LIST: CLON0.5T4 PO; DIVA500T9 PO; HALO50AM2 IM; NICO-687 TD; NICO-907 BC; PRAZ1CAP5 PO
[2022-05-28 13:45] VITALS: BP 146/106
--- NOTE | 2022-05-28 13:45 | NUR ---
ADMIT NOTE: Pt. arrived on unit on a gurney after pt. eloped from EMS and was brought back to the hospital by EMS after pt. walked multiple blocks on foot. Pt. was cooperative with skin check and admission upon arrival. Pt. smells strongly of cannabis. Pt. pacing aggressively back and forth in the hallway and received [id number], Haldol 5mg, and Benadryl 50mg po with moderate effect. Pt. then began c/o eps, stating, "I can't stop looking up". Pt. received cogentin 2mg IM with good effect. Later pt. again became agitated and started yelling and saying that Satan and 17 demons are inside of him. Pt. received 2mg Ativan PO with minimal effect. Pt. continued to yell and say, "I just want you to kill me!". Security was called and pt. received Haldol 10mg and Ativan 2mg po with good effect.
--- NOTE | 2022-05-28 13:46 | NUR ---
Per 5150 pt. is here for SA by OD on streeth drugs after command hallucinations telling him to do so. Pt. states that he took "Fentanyl, black china, meth, 8 ball" in suicide attempt. Pt. states he feels hopeless. Pt. is also delusional, stating, "they won't give me my billion dollars". Pt. states, "I tried killing myself because Im a free michelle. They dont love me but I love them. Yes I do."
[2022-05-28] MEDS ORDERED: loperamide 2mg capsule PO PRN (13:55)
[2022-05-28] MEDS: NICOTINE POLACRILEX 2 MG LOZENGE BC PRN (14:07)
[2022-05-28] MEDS ORDERED: nicotine 21mg patch - 24 hr TD ONE (14:10)
[2022-05-28] MEDS ORDERED: diphenhydrAMINE 25mg capsule PO ONE (14:15)
[2022-05-28] MEDS ORDERED: LORazepam 1 MG tablet PO ONE ×2 (14:15→16:25)
[2022-05-28] MEDS ORDERED: haloperidol 5mg tablet PO ONE (14:15)
[2022-05-28] MEDS ORDERED: benztropine 1mg tablet PO ONE (14:37)
[2022-05-28] MEDS ORDERED: benztropine 1 mg/ml 2ml ampule IM STA (14:38)
[2022-05-28] MEDS ORDERED: benztropine 1 mg/ml 2ml ampule ONE (14:42)
[2022-05-28] MEDS ORDERED: DIVA500T4 PO (16:23)
[2022-05-28] MEDS ORDERED: PRAZ1CAP5 PO (16:23)
[2022-05-28] MEDS ORDERED: BENZ1TAB78 PO (16:23)
[2022-05-28] MEDS ORDERED: TRAZ-256 PO (16:23)
[2022-05-28] MEDS ORDERED: CHLO50TA52 PO (16:23)
[2022-05-28] MEDS ORDERED: CLON-372 PO (16:23)
[2022-05-28] MEDS ORDERED: HALO10TA13 PO (16:23)
[2022-05-28] MEDS ORDERED: diphenhydrAMINE 50 mg/ml inj IM ONE (16:40)
[2022-05-28] MEDS ORDERED: haloperidol lactate 5mg/ml inj IM ONE (16:40)
[2022-05-28] MEDS: acetaminophen 325mg tablet PO PRN (17:08)
--- NOTE | 2022-05-28 18:39 | NUR ---
Pt. c/o of chest pain and stat ekg done that showed boderline prolonged QT elevation. Danny SANCHEZ was notified. repeat EKG to be done in 2 days. Pt.'s VSS. endorsed to manager product design.
[2022-05-28 20:00] VITALS: BP 115/69
[2022-05-28] MEDS: traZODone 50mg tablet PO SCH (20:25)
[2022-05-28] MEDS: prazosin 1mg capsule PO SCH (20:25)
[2022-05-28] MEDS: benztropine 1mg tablet PO SCH (20:25)
[2022-05-28] MEDS: OLANZapine 2.5MG tablet PO SCH (20:26)
[2022-05-28] MEDS ORDERED: haloperidol 5mg tablet PO SCH (21:00)
[2022-05-28] MEDS ORDERED: chlorproMAZINE 25mg tablet PO SCH (21:00)
--- NOTE | 2022-05-29 03:44 | NUR ---
Nursing Progress Note: Problem :Pt. arrived on unit on a gurney after pt. eloped from EMS and was brought back to the hospital by EMS after pt. walked multiple blocks on foot. Pt. was cooperative with skin check and admission upon arrival. Pt. smells strongly of cannabis. Pt. pacing aggressively back and forth in the hallway and received [id number], Haldol 5mg, and Benadryl 50mg po with moderate effect. Pt. then began c/o eps, stating, "I can't stop looking up". Pt. received cogentin 2mg IM with good effect. Interventions :Medication administration. Maintain a safe and supportive environment. Monitored behaviors and provided clear boundaries. Provided positive reinforcement, and maintained q15min safety checks. Response: pt in bed & calm at shift change; informed pt had c/o of CP; EKG done & reviewed first by ER doctor , then Dr Yeboah; CP resolved, with no further c/o of pain or discomfort since shift change; stated earlier of having SI that comes & goes; denies HI or hearing voices; cooperative during physical assessments; took all meds; returns easily to sleep Plan :Interruption of current crisis. Medication admin. Provide a safe and therapeutic environment.
[2022-05-29 07:52] LABS: HEMOGLOBIN A1C 5.1 % (4.5-6.2)
[2022-05-29 08:00] LABS: CHOL/HDL RATIO 2.3 (0.00-4.99); CHOLESTEROL 142 MG/DL (0-200); HDL CHOLESTEROL 62 MG/DL (35-60); LDL CHOLESTEROL 65 MG/DL (50-100); TRIGLYCERIDES 70 MG/DL (20-135)
[2022-05-29] MEDS: OLANZapine 2.5MG tablet PO SCH (08:00)
[2022-05-29] MEDS: nicotine 21mg patch - 24 hr TD SCH (08:00)
[2022-05-29] MEDS ORDERED: divalproex sod 250mg ER (24-hour) tablet PO SCH (08:00)
[2022-05-29] MEDS: benztropine 1mg tablet PO SCH ×2 (08:06→18:58)
[2022-05-29] MEDS: divalproex sod 250mg ER (24-hour) tablet PO SCH (08:06)
[2022-05-29 08:18] VITALS: BP 141/71
[2022-05-29] MEDS: clonazePAM 1mg tablet PO PRN ×2 (09:04→19:54)
--- NOTE | 2022-05-29 09:13 | NUR ---
[facility] CONTACT Called cR Powers LCSW, with [facility] (# [phone]) to inquire if they are planning on conserving Christophe. He reported they would like to conserve him again. Since his last admit to [facility] in November, he continues to flounder in the community due to multiple care home and PHF admissions since that time, often related to med compliance and substance use. He also no longer has viable d/c plans for housing due to continuing to being kicked out of his mothers house due to substance use and med compliance issues. Contact info: Public Guardian: Magaly Brown ([phone]) Rocio:[facility] ([phone])-current Behavioral Health provider Mother Abel is [phone] JOEL Casanova
--- NOTE | 2022-05-29 15:45 | NUR ---
Nursing Progress Note: Problem: Per 5150 pt. is here for SA by OD on street drugs after command hallucinations telling him to do so. Pt. states that he took "Fentanyl, black china, meth, 8 ball" in suicide attempt. Pt. states he feels hopeless. Pt. is also delusional, stating, "they won't give me my billion dollars". Pt. states, "I tried killing myself because Im a free michelle. They dont love me but I love them. Yes I do." Interventions: 1:1 assessment, medication administration/education/monitoring, therapeutic conversation, active listening, ensured contract for safety, provided distraction, redirection, and positive reinforcement. Response: Pt refused his Zyprexa 10 mg this morning but did take all other PO medications. Pt stated that he'll take any pill but Zyprexa as he was on it before and it caused him to gain too much weight..."like 200 pounds." Pt also refused his nicotine patch stating he didn't need it today. DANIEL Delgado notified of pt's Zyprexa refusal. Pt denied AH today though endorsed SI. Pt contracted for safety stating, "I can't do anything here, the glass is too thick." Pt became hyperverbal and mildly agitated. He stated, "I'm gonna kill myself when I get out of here, smash a window and slash a vein. Pt was given PRN Klonopin 2 mg at 0904 with good effect. Pt paced the unit listening to the radio headphones and is calmed by cups of decaf coffee. Plan: Crisis interruption and stabilization in a safe and therapeutic environment. Pt's [facility] is considering conservatorship.
[2022-05-29] MEDS: acetaminophen 325mg tablet PO PRN (18:59)
[2022-05-29 19:00] VITALS: BP 126/62
[2022-05-29] MEDS: traZODone 50mg tablet PO SCH (19:54)
[2022-05-29] MEDS: prazosin 1mg capsule PO SCH (19:54)
[2022-05-29] MEDS: QUEtiapine 25mg tablet PO SCH ×2 (19:55→19:58)
--- NOTE | 2022-05-30 04:20 | NUR ---
RN PROGRESS NOTE (NOC): LEGAL HOLD: 5150 for DTS/GD. PROBLEM: Client reported attempting to overdose on numerous street drugs to end his life. INTERVENTION: 1. Medication administration. 2. Maintained a safe and supportive environment. 3. Provided clear and simple instructions and direction. 4. Encouraged ADLs. 5. Monitored behaviors 6. Maintained clear boundaries, provided positive reinforcement. 7. Q15 minute safety checks. RESPONSE: Client approached this RN at the beginning of shift and stated "My stomach is bothering me." Client requested Tylenol. Declined Mylanta. Client then requested "something for anxiety". Client offered a rambling, loosely connected history regarding the reason he was admitted. He stated something about losing custody of his son (or the of his son ?). Flat affect. Depressed mood. Medication compliant.
[2022-05-30 07:00] VITALS: BP 116/71
[2022-05-30] MEDS: QUEtiapine 25mg tablet PO SCH ×4 (07:48→21:02)
[2022-05-30] MEDS: divalproex sod 250mg ER (24-hour) tablet PO SCH (07:49)
[2022-05-30] MEDS: nicotine 21mg patch - 24 hr TD SCH (07:49)
[2022-05-30] MEDS: benztropine 1mg tablet PO SCH ×2 (07:49→20:54)
[2022-05-30] MEDS: clonazePAM 1mg tablet PO PRN (12:05)
[2022-05-30] MEDS: acetaminophen 325mg tablet PO PRN ×2 (12:07→21:30)
--- NOTE | 2022-05-30 12:43 | NUR ---
PT GIVEN STIM OBJECT. Gave client playdoh to assist with grounding, psychomotor agitation. Ct responded positively. Okayed by Fidencio Cortes. Will retrieve at end of day.
--- NOTE | 2022-05-30 15:04 | NUR ---
LEFT MESSAGE FOR CT'S social media sr strategy manager @ [facility] adult services: Nayan Powers [facility] [phone]. Purpose: preparation for any discharge per clinical course of care, also to get correct name of ct's payee. Ct states Gio is one of his two main supports, and his mentor. I assured ct I would call Gio. Addendum: 06/01/22 at 1018 by Miranda ROCA DISREGARD: SEE 05/29 05/29 note by ABELINO GUY
--- NOTE | 2022-05-30 16:15 | NUR ---
Nursing Progress Note: Problem: Per 5150 pt. is here for SA by OD on street drugs after command hallucinations telling him to do so. Pt. states that he took "Fentanyl, black china, meth, 8 ball" in suicide attempt. Pt. states he feels hopeless. Pt. is also delusional, stating, "they won't give me my billion dollars". Pt. states, "I tried killing myself because Im a free michelle. They dont love me but I love them. Yes I do." Interventions: 1:1 assessment, medication administration/education/monitoring, therapeutic conversation, active listening, ensured contract for safety, provided distraction, redirection, and positive reinforcement. Response: Received pt sleeping in bed at shift change. Patient up today walking the hallways and complaining of left ankle pain, Tylenol administered. New order for Ibuprofen b.i.d. At approximately 12:00, patient was yelling loudly in hallway, singing and dancing around, being a disruption. Klonopin 2 mg was administered to patient along with Seroquel and Tylenol. Patient responded well to this and became calmer and quieter, but continued to walk hallways and listen to headphones. Patient denies feeling suicidal today and states that he feels "happy". Plan: Crisis interruption and stabilization in a safe and therapeutic environment. Pt's [facility] is considering conservatorship.
[2022-05-30] MEDS: ibuprofen tablet 400 MG TABLET PO SCH (17:32)
[2022-05-30 19:00] VITALS: BP 142/66
[2022-05-30] MEDS: traZODone 50mg tablet PO SCH (20:55)
[2022-05-30] MEDS: prazosin 1mg capsule PO SCH (20:55)
--- NOTE | 2022-05-31 03:48 | NUR ---
RN PROGRESS NOTE (NOC): LEGAL HOLD: 5150 for DTS/GD. PROBLEM: Client reported attempting to overdose on numerous street drugs to end his life. INTERVENTION: 1. Medication administration. 2. Maintained a safe and supportive environment. 3. Provided clear and simple instructions and direction. 4. Encouraged ADLs. 5. Monitored behaviors 6. Maintained clear boundaries, provided positive reinforcement. 7. Q15 minute safety checks. RESPONSE: Client was walking around the unit listening to the headphones and 'rapping' (loudly). Reported that he was "doing good". Clients mood has improved since night. Took evening meds and had a snack. Requested Tylenol for pain. Fell asleep w/o difficulty.
[2022-05-31] MEDS: nicotine 21mg patch - 24 hr TD SCH (06:59)
[2022-05-31] MEDS: QUEtiapine 25mg tablet PO SCH ×4 (07:00→21:31)
[2022-05-31] MEDS: divalproex sod 250mg ER (24-hour) tablet PO SCH (07:00)
[2022-05-31] MEDS: benztropine 1mg tablet PO SCH ×2 (07:00→21:29)
[2022-05-31] MEDS: ibuprofen tablet 400 MG TABLET PO SCH ×3 (07:00→17:35)
[2022-05-31] MEDS: acetaminophen 325mg tablet PO PRN (07:01)
[2022-05-31 07:05] VITALS: BP 114/70
--- NOTE | 2022-05-31 09:30 | NUR ---
Initial: Pt admit for schizoaffective disorder. Currently on a regular diet and eating well, documented with 100% PO intake of meals with the exception of refusing first meal on admit. D/w dietary to send double protein TID for satiety and to assist with meeting estimated nutrient needs. [facility] 05/30. Will continue to follow and monitor need for further nutrition intervention. Recommendations: 1) Continue regular diet 2) Double eggs WB, double meat BIDLD 3) Bowel care PRN 4) Weekly scaled weights Addendum: 05/31/22 at [address] Amended: Links added.
[2022-05-31] MEDS: clonazePAM 1mg tablet PO PRN (11:22)
[2022-05-31] MEDS ORDERED: OLANZapine 2.5MG tablet PO STA (14:14)
[2022-05-31] MEDS ORDERED: haloperidol 5mg tablet PO ONE (14:20)
[2022-05-31] MEDS ORDERED: LORazepam 2 mg/ml vial ONE (14:33)
[2022-05-31] MEDS ORDERED: diphenhydrAMINE 50 mg/ml inj ONE (14:33)
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
[2022-05-31 20:00] VITALS: BP 111/60
[2022-05-31] MEDS: prazosin 1mg capsule PO SCH (21:29)
[2022-05-31] MEDS: traZODone 50mg tablet PO SCH (21:29)
--- NOTE | 2022-06-01 00:07 | NUR ---
Nursing Progress Note: Problem: Per 5150 pt. is here for SA by OD on street drugs after command hallucinations telling him to do so. Pt. states that he took "Fentanyl, black china, meth, 8 ball" in suicide attempt. Pt. states he feels hopeless. Pt. is also delusional, stating, "they won't give me my billion dollars". Pt. states, "I tried killing myself because Im a free michelle. They dont love me but I love them. Yes I do." Interventions: 1:1 assessment, medication administration/education/monitoring, therapeutic conversation, active listening, ensured contract for safety, provided distraction, redirection, and positive reinforcement. Response: Patient was in his room laying in bed at change of shift. RN spoke to patient he answered questions and did not present as psychotic but appeared sleepy and did not want to engage. Patient denies suicidal ideation. Patient also denies hearing voices. Patient took his night medication which was Cogentin, Trazodone, Prazosin and Seroquel. Patient was calm and cooperative. Patient rolled to his side and attempting to sleep. RN refilled his water and patient thanked RN. Plan: Crisis interruption and stabilization in a safe and therapeutic environment. [facility] is considering conservatorship.
[2022-06-01 07:00] VITALS: BP 136/78
[2022-06-01] MEDS: nicotine 21mg patch - 24 hr TD SCH (07:46)
[2022-06-01] MEDS: QUEtiapine 25mg tablet PO SCH ×4 (07:47→21:09)
[2022-06-01] MEDS: benztropine 1mg tablet PO SCH ×2 (07:47→21:05)
[2022-06-01] MEDS: divalproex sod 250mg ER (24-hour) tablet PO SCH (07:47)
[2022-06-01] MEDS: ibuprofen tablet 400 MG TABLET PO SCH ×3 (07:47→17:35)
[2022-06-01 08:47] VITALS: BP 136/78
[2022-06-01] MEDS: clonazePAM 1mg tablet PO PRN (09:54)
[2022-06-01] MEDS: acetaminophen 325mg tablet PO PRN (09:54)
--- NOTE | 2022-06-01 17:22 | NUR ---
Nursing Progress Note: Problem: Per 5150 pt. is here for SA by OD on street drugs after command hallucinations telling him to do so. Pt. states that he took "Fentanyl, black china, meth, 8 ball" in suicide attempt. Pt. states he feels hopeless. Pt. is also delusional, stating, "they won't give me my billion dollars". Pt. states, "I tried killing myself because Im a free michelle. They dont love me but I love them. Yes I do." Interventions: 1:1 assessment, medication administration/education/monitoring, therapeutic conversation, active listening, ensured contract for safety, provided distraction, redirection, and positive reinforcement. Response: Patient up walking the halls pacing at change of shift. Patient complains of foot pain and is currently on b.i.d. ibuprofen, Tylenol prn also administered. Patient again states that he is "happy" today, although at one point appeared to be triggered by another patient, but when approached patient to see if he needed any anxiety medication, he said that he did not. Patient is eating his meals, taking medications, and is cooperative, pacing the unit all day wearing headphones. Plan: Crisis interruption and stabilization in a safe and therapeutic environment. '[facility] is considering conservatorship.
[2022-06-01] MEDS ORDERED: diphenhydrAMINE 50 mg/ml inj ONE (17:41)
[2022-06-01] MEDS ORDERED: haloperidol lactate 5mg/ml inj ONE (17:42)
[2022-06-01] MEDS ORDERED: LORazepam 2 mg/ml vial ONE (17:42)
--- NOTE | 2022-06-01 17:58 | NUR ---
Violence: Pt punched a hole in the wall in the community room. PT then yelling "Demonic voices" and continues threatening violence. Pt given Haldol 5mg IM, ativan 2mg IM benadryl 50mg IM with security at bedside.
[2022-06-01] MEDS ORDERED: haloperidol 5mg tablet PO ONE (19:10)
[2022-06-01] MEDS ORDERED: LORazepam 1 MG tablet PO ONE (19:10)
[2022-06-01] MEDS ORDERED: diphenhydrAMINE 25mg capsule PO ONE (19:10)
[2022-06-01 20:15] VITALS: BP 107/55
[2022-06-01] MEDS: traZODone 50mg tablet PO SCH (21:05)
[2022-06-01] MEDS: prazosin 1mg capsule PO SCH (21:05)
[2022-06-02] MEDS: clonazePAM 1mg tablet PO PRN ×2 (03:38→13:15)
--- NOTE | 2022-06-02 05:56 | NUR ---
Nursing Progress Note: Problem: Per 5150 pt. is here for SA by OD on street drugs after command hallucinations telling him to do so. Pt. states that he took "Fentanyl, black china, meth, 8 ball" in suicide attempt. Pt. states he feels hopeless. Pt. is also delusional, stating, "they won't give me my billion dollars". Pt. states, "I tried killing myself because Im a free michelle. They dont love me but I love them. Yes I do." Interventions: 1:1 assessment, medication administration/education/monitoring, therapeutic conversation, active listening, ensured contract for safety, provided distraction, redirection, and positive reinforcement. Response: Patient cooperative with care; compliant with medication. He expressed agitation and was provided PO Haldol 5mg, Ativan 2mg and Benadryl 50mg; medications were effective and patient went to bed shortly after. He woke up early AM; he was provided PRN Clonazepam and snack provided. Patient denies SI, HI, A/VH. Plan: Crisis interruption and stabilization in a safe and therapeutic environment. [facility] is considering conservatorship.
[2022-06-02 07:00] VITALS: BP 123/73
[2022-06-02] MEDS: QUEtiapine 25mg tablet PO SCH ×4 (07:47→20:25)
[2022-06-02] MEDS: divalproex sod 250mg ER (24-hour) tablet PO SCH (07:47)
[2022-06-02] MEDS: nicotine 21mg patch - 24 hr TD SCH (07:47)
[2022-06-02] MEDS: ibuprofen tablet 400 MG TABLET PO SCH ×3 (07:48→18:07)
[2022-06-02] MEDS: benztropine 1mg tablet PO SCH ×2 (07:48→20:26)
[2022-06-02] MEDS: haloperidol 5mg tablet PO PRN ×2 (08:00→21:41)
[2022-06-02] MEDS: traMADol 50MG tablet PO PRN (11:23)
--- NOTE | 2022-06-02 13:34 | NUR ---
5250 upheld for DTS and GD
--- NOTE | 2022-06-02 17:30 | NUR ---
Nursing Progress Note: Problem: Per 5150 pt. is here for SA by OD on street drugs after command hallucinations telling him to do so. Pt. states that he took "Fentanyl, black china, meth, 8 ball" in suicide attempt. Pt. states he feels hopeless. Pt. is also delusional, stating, "they won't give me my billion dollars". Pt. states, "I tried killing myself because Im a free michelle. They dont love me but I love them. Yes I do." Interventions: 1:1 assessment, medication administration/education/monitoring, therapeutic conversation, active listening, ensured contract for safety, provided distraction, redirection, and positive reinforcement. Response: Received patient sleeping in bed at shift change. Patient states that he received Klonopin at 02:00 a.m. and that his nerves are being attacked. Patient then started pacing hallways, but before long he was yelling that he was going to punch the windows because of his nerves being attacked. Patient had fists balled up and was red in the face. He accepted prn Haldol and went into his room and took a nap. Each day, patient tends to be set off by a client on the unit and interaction between them is limited due to instability. Patient was given Seroquel and prn Klonopin and patient went back to sleep. Later when patient awoke he was walking hallways with one of his peers and conversing. Patient denies all mental health questions. Patient was calm for the rest of the shift. Would recommend scheduled Klonopin in the afternoon as this is when patient is easily agitated and labile. Patient does not appear to pose a safety risk to staff, but has impulse control problems in terms of DTS/DTO. Hospitalist rounded today and started him on Ultram 50 q4h prn, for ankle pain, and this was administered with effectiveness. Plan: Crisis interruption and stabilization in a safe and therapeutic environment. Pt's [facility] is considering conservatorship. Frequent rounding for safety.
[2022-06-02 19:25] VITALS: BP 104/57
[2022-06-02] MEDS: prazosin 1mg capsule PO SCH (20:24)
[2022-06-02] MEDS: traZODone 50mg tablet PO SCH (20:26)
--- NOTE | 2022-06-03 00:42 | NUR ---
Nursing Progress Note: Problem: Per 5150 pt. is here for SA by OD on street drugs after command hallucinations telling him to do so. Pt. states that he took "Fentanyl, black china, meth, 8 ball" in suicide attempt. Pt. states he feels hopeless. Pt. is also delusional, stating, "they won't give me my billion dollars". Pt. states, "I tried killing myself because Im a free michelle. They dont love me but I love them. Yes I do." Interventions: 1:1 assessment, medication administration/education/monitoring, therapeutic conversation, active listening, ensured contract for safety, provided distraction, redirection, and positive reinforcement. Response: Patient is isolative to self, he appears internally preoccupied and is seen staring off and not paying attention to what is happening around him. Patient denies SI, HI, A/VH, but when RN asks to turn his bathroom light off he responds, No, that's when the demons and devils come out." He is medication compliant and lays down for bed. After being asleep for awhile he comes out of his room and says "I just had a dream of my people." He says he is having trouble sleeping. PRN Haldol given with good effect Plan: Crisis interruption and stabilization in a safe and therapeutic environment. Pt's county is considering conservatorship.
[2022-06-03] MEDS: acetaminophen 325mg tablet PO PRN (06:24)
[2022-06-03 08:00] VITALS: BP 130/60
[2022-06-03] MEDS: ibuprofen tablet 400 MG TABLET PO SCH ×3 (08:03→17:02)
[2022-06-03] MEDS: divalproex sod 250mg ER (24-hour) tablet PO SCH (08:04)
[2022-06-03] MEDS: QUEtiapine 25mg tablet PO SCH ×3 (08:04→18:37)
[2022-06-03] MEDS: benztropine 1mg tablet PO SCH ×2 (08:04→18:37)
[2022-06-03] MEDS: nicotine 21mg patch - 24 hr TD SCH (08:08)
[2022-06-03] MEDS: haloperidol 5mg tablet PO PRN ×2 (08:43→17:02)
[2022-06-03] MEDS: clonazePAM 1mg tablet PO PRN ×2 (08:44→17:02)
[2022-06-03] MEDS ORDERED: haloperidol lactate 5mg/ml inj ONE (17:50)
[2022-06-03] MEDS ORDERED: LORazepam 2 mg/ml vial ONE (17:51)
--- NOTE | 2022-06-03 18:04 | NUR ---
Nursing Progress Note Problem: Per 5150 pt. is here for SA by OD on street drugs after command hallucinations telling him to do so. Pt. states that he took "Fentanyl, black china, meth, 8 ball" in suicide attempt. Pt. states he feels hopeless. Pt. is also delusional, stating, "they won't give me my billion dollars". Pt. states, "I tried killing myself because Im a free michelle. They dont love me but I love them. Yes I do." Interventions: 1:1 assessment, medication administration/education/monitoring, therapeutic conversation, active listening, ensured contract for safety, provided distraction, redirection, and positive reinforcement. Response: Received pt in bed sleeping w/o distress in her room at change of shift. Pt woke and was cooperative with vitals. Pt ate breakfast and all meals and snacks well today. Later in day he c/o feeling constipated and not having a BM in three days and asked for prune juice, which he received. Pt became agitated in AM and loudly yelled and punched the window in his room. He received PRN Ativan and Haldol with good effect. Pt was able to lay down and rest. Pt paced halls and listened to music intermittently. Pt again became agitated in afternoon and received PRN Klonopin and Haldol. Pt escalated to punching doors and murry approx.. an hour after prns and Dr Weldon was called and ordered Haldol 5mg and Ativan 1mg IM. Meds were administered as ordered. Pt reported being tormented by spirits. I just want to . My soul is dying. Plan: Crisis interruption and stabilization in a safe and therapeutic environment. Pt's [facility] is considering conservatorship. Frequent rounding for safety.
[2022-06-03] MEDS ORDERED: LORazepam 2 mg/ml vial IM ONE (18:30)
--- NOTE | 2022-06-03 18:31 | NUR ---
Contacted OCP Dr Mckenzie as pt continues to yell, states he feels he is possessed, wanting more meds for relief, prior meds given ineffective, order to given HS meds now given. Dr Mckenzie stated to watch patient closely for side effects.
[2022-06-03] MEDS: prazosin 1mg capsule PO SCH (18:37)
[2022-06-03 20:10] VITALS: BP 100/59
[2022-06-03] MEDS: quetiapine 100mg tablet PO SCH (20:45)
[2022-06-03] MEDS: traZODone 50mg tablet PO SCH (20:46)
--- NOTE | 2022-06-03 23:12 | NUR ---
Nursing Progress Note Problem: Per 5150 pt. is here for SA by OD on street drugs after command hallucinations telling him to do so. Pt. states that he took "Fentanyl, black china, meth, 8 ball" in suicide attempt. Pt. states he feels hopeless. Pt. is also delusional, stating, "they won't give me my billion dollars". Pt. states, "I tried killing myself because Im a free michelle. They dont love me but I love them. Yes I do." Interventions: 1:1 assessment, medication administration/education/monitoring, therapeutic conversation, active listening, ensured contract for safety, provided distraction, redirection, and positive reinforcement. Early medication administration. Response: Pt was screaming in his room at shift change. Pt is very internally preoccupied and asks if he is going to . PT is verbally reassured and staff lets pt pace while he calms down. Dr. Mckenzie called and consulted, he gave the okay to give his HS medication early. Pt given HS medications at 1845 with good effect. An hour after medication administration he said, I am starting to feel normal again. PT lays down after eating snack and is able to fall asleep. Plan: Crisis interruption and stabilization in a safe and therapeutic environment. Pt's [facility] is considering conservatorship. Frequent rounding for safety.
[2022-06-04 07:50] VITALS: BP 131/65
[2022-06-04] MEDS: divalproex sod 250mg ER (24-hour) tablet PO SCH (08:25)
[2022-06-04] MEDS: benztropine 1mg tablet PO SCH ×2 (08:25→21:07)
[2022-06-04] MEDS: QUEtiapine 25mg tablet PO SCH ×3 (08:25→21:06)
[2022-06-04] MEDS: nicotine 21mg patch - 24 hr TD SCH (08:26)
[2022-06-04] MEDS: ibuprofen tablet 400 MG TABLET PO SCH ×3 (08:26→18:05)
[2022-06-04] MEDS: clonazePAM 1mg tablet PO PRN ×2 (08:52→15:02)
[2022-06-04] MEDS: haloperidol 5mg tablet PO PRN (11:30)
[2022-06-04] MEDS ORDERED: haloperidol lactate 5mg/ml inj ONE (15:15)
[2022-06-04] MEDS ORDERED: LORazepam 2 mg/ml vial IM ONE (15:15)
[2022-06-04] MEDS ORDERED: diphenhydrAMINE 50 mg/ml inj ONE (15:17)
--- NOTE | 2022-06-04 17:35 | NUR ---
Nursing Progress Note Problem: Per 5150 pt. is here for SA by OD on street drugs after command hallucinations telling him to do so. Pt. states that he took "Fentanyl, black china, meth, 8 ball" in suicide attempt. Pt. states he feels hopeless. Pt. is also delusional, stating, "they won't give me my billion dollars". Pt. states, "I tried killing myself because Im a free michelle. They dont love me but I love them. Yes I do." Interventions: 1:1 assessment, medication administration/education/monitoring, therapeutic conversation, active listening, ensured contract for safety, provided distraction, redirection, and positive reinforcement. Response: Received pt awake in his room. 1:1 done at bedside. Pt states "I slept too much, the anxiety medications make me sleepy, I don't want to be here." Medications administered with no issues. Pt attended both breakfast and lunch, eating 100%. Pt requested PRN klonopin at 0850 for c/o anxiety, pt appeared calm and was cooperative. Pt then requested medication for agitation/psychosis, haldol was administer at 1130am. Pt continued to have an okay day and stayed calm till appox. 1515 when he started starring off into space, yelling "I'm going to , I need to get out of here", PRN klonopin administer again and pt attempted to sit in his room. Several minutes later he started yelling bizarre statements and then started banging his head on his toilet. PRN IM of 2mg ativan, 10mg haldol, 50mg benadryl administered with effective results. Pt. resting in bed. Plan: Crisis interruption and stabilization in a safe and therapeutic environment. Pt's [facility] is considering conservatorship. Frequent rounding for safety.
[2022-06-04 19:00] VITALS: BP 104/50
[2022-06-04] MEDS: quetiapine 100mg tablet PO SCH (21:06)
[2022-06-04] MEDS: traZODone 50mg tablet PO SCH (21:06)
[2022-06-04] MEDS: prazosin 1mg capsule PO SCH (21:07)
--- NOTE | 2022-06-05 05:03 | NUR ---
Nursing Progress Note Problem: Per 5150 pt. is here for SA by OD on street drugs after command hallucinations telling him to do so. Pt. states that he took "Fentanyl, black china, meth, 8 ball" in suicide attempt. Pt. states he feels hopeless. Pt. is also delusional, stating, "they won't give me my billion dollars". Pt. states, "I tried killing myself because Im a free michelle. They dont love me but I love them. Yes I do." Interventions: 1:1 assessment, medication administration/education/monitoring, therapeutic conversation, active listening, ensured contract for safety, provided distraction, redirection, and positive reinforcement. Response: Patient is pleasant and cooperative; compliant with medication. He denies SI, HI, A/VH; explained feeling depressed and continued, "this place is making me crazy." No aggressive behaviors observed this shift. He remained in his room the majority of this shift; observed sleeping and does not appear to be having difficulty. Plan: Crisis interruption and stabilization in a safe and therapeutic environment. '[facility] is considering conservatorship. Frequent rounding for safety.
[2022-06-05 07:37] VITALS: BP 128/77
[2022-06-05] MEDS: ibuprofen tablet 400 MG TABLET PO SCH ×3 (07:45→17:04)
[2022-06-05] MEDS: nicotine 21mg patch - 24 hr TD SCH (07:45)
[2022-06-05] MEDS: QUEtiapine 25mg tablet PO SCH ×3 (07:45→20:43)
[2022-06-05] MEDS: divalproex sod 250mg ER (24-hour) tablet PO SCH (07:45)
[2022-06-05] MEDS: benztropine 1mg tablet PO SCH ×2 (07:45→20:43)
[2022-06-05] MEDS: docusate sod 100mg capsule PO SCH (07:46)
[2022-06-05] MEDS: clonazePAM 1mg tablet PO PRN ×2 (11:57→19:13)
[2022-06-05] MEDS: acetaminophen 325mg tablet PO PRN (15:27)
--- NOTE | 2022-06-05 16:43 | NUR ---
Nursing Progress Note: Problem: Per 5150 pt. is here for SA by OD on street drugs after command hallucinations telling him to do so. Pt. states that he took "Fentanyl, black china, meth, 8 ball" in suicide attempt. Pt. states he feels hopeless. Pt. is also delusional, stating, "they won't give me my billion dollars". Pt. states, "I tried killing myself because Im a free michelle. They dont love me but I love them. Yes I do." Interventions: 1:1 assessment, medication administration/education/monitoring, therapeutic conversation, active listening, ensured contract for safety, provided distraction, redirection, and positive reinforcement. Response: Patient has been in a pretty good mood today. He has been pleasant and cooperative with staff, and has been compliant with all medications. He has utilized his PRNs today for pain and calmness. Patient has made delusional comments about the freemasons and illuminati, but has shown no anger or agitation. He stops to talk often about what hes thinking about, and is not discouraged from doing so. He denies all MH symptoms, but is obviously hallucinating and delusional. Plan: Crisis interruption and stabilization in a safe and therapeutic environment. Pt's [facility] is considering conservatorship. Frequent rounding for safety.
[2022-06-05 20:00] VITALS: BP 111/56
[2022-06-05] MEDS: traZODone 50mg tablet PO SCH (20:43)
[2022-06-05] MEDS: quetiapine 100mg tablet PO SCH (20:44)
[2022-06-05] MEDS: prazosin 1mg capsule PO SCH (20:45)
--- NOTE | 2022-06-06 02:19 | NUR ---
Nursing Progress Note Problem: Per 5150 pt. is here for SA by OD on street drugs after command hallucinations telling him to do so. Pt. states that he took "Fentanyl, black china, meth, 8 ball" in suicide attempt. Pt. states he feels hopeless. Pt. is also delusional, stating, "they won't give me my billion dollars". Pt. states, "I tried killing myself because Im a free michelle. They dont love me but I love them. Yes I do." Interventions: 1:1 assessment, medication administration/education/monitoring, therapeutic conversation, active listening, ensured contract for safety, provided distraction, redirection, and positive reinforcement. Response: Patient is pleasant and cooperative with care; compliant with medication. PRN Clonazepam provided for c/o increased anxiety. Patient appeared elevated this shift; singing and pacing the halls. He continues to report feeling depressed d/t missing his son; denies SI, HI, A/VH. He appeared to be expressing delusional thought content. As he was explaining being a free michelle for ten years, he continued to state, "they're not all evil but I had to sacrifice my first born." Patient participated in HS snack and socialized with male peer prior to bed; observed sleeping and does not appear to be having difficulty. Plan: Crisis interruption and stabilization in a safe and therapeutic environment. Pt's pending sale to [facility] is considering conservatorship. Frequent rounding for safety.
[2022-06-06 07:23] VITALS: BP 110/63
[2022-06-06] MEDS: benztropine 1mg tablet PO SCH ×2 (07:41→20:28)
[2022-06-06] MEDS: docusate sod 100mg capsule PO SCH (07:41)
[2022-06-06] MEDS: divalproex sod 250mg ER (24-hour) tablet PO SCH (07:41)
[2022-06-06] MEDS: QUEtiapine 25mg tablet PO SCH ×3 (07:41→20:28)
[2022-06-06] MEDS: ibuprofen tablet 400 MG TABLET PO SCH ×3 (07:41→20:28)
[2022-06-06] MEDS: nicotine 21mg patch - 24 hr TD SCH (07:42)
[2022-06-06] MEDS: clonazePAM 1mg tablet PO PRN ×2 (09:33→21:05)
[2022-06-06] MEDS: acetaminophen 325mg tablet PO PRN ×2 (09:34→14:50)
[2022-06-06] MEDS: traMADol 50MG tablet PO PRN ×2 (09:48→14:54)
--- NOTE | 2022-06-06 15:51 | NUR ---
DISCHARGE: CONSERVATORSHIP Received instructions from [facility], drafted the packet they require, emailed drafts to Fidencio. Ultimately need to be signed by Dr. Weldon and reviewed and signed (or not) by Christophe.
--- NOTE | 2022-06-06 17:30 | NUR ---
Nursing Progress Note Problem: Per 5150 pt. is here for SA by OD on street drugs after command hallucinations telling him to do so. Pt. states that he took "Fentanyl, black china, meth, 8 ball" in suicide attempt. Pt. states he feels hopeless. Pt. is also delusional, stating, "they won't give me my billion dollars". Pt. states, "I tried killing myself because Im a free michelle. They dont love me but I love them. Yes I do." Interventions: 1:1 assessment, medication administration/education/monitoring, therapeutic conversation, active listening, ensured contract for safety, provided distraction, redirection, and positive reinforcement. Response: Patient has been up since COS this AM. Hes kind of labile and making delusional comments about the Freemasons. He believes that he is one. Sometimes I hate them, and others I like them. He continues to be pleasant and cooperative with this nurse, and compliant with his medications. Patient continues to c/o pain to his feet, and is using Motrin and Tramadol with relief. Patient comes to me before lunch and asks to have his diet changed to vegetarian, I need to lose weight so I can do the moonwalk. Really its because medications make me gain weight. I gained a lot before, and I dont want to do it again. Plan: Crisis interruption and stabilization in a safe and therapeutic environment. Pt's [facility] is considering conservatorship. Frequent rounding for safety.
[2022-06-06 20:00] VITALS: BP 114/92
[2022-06-06] MEDS: quetiapine 100mg tablet PO SCH (20:28)
[2022-06-06] MEDS: traZODone 50mg tablet PO SCH (20:28)
[2022-06-06] MEDS: prazosin 1mg capsule PO SCH (20:28)
--- NOTE | 2022-06-07 02:28 | NUR ---
Nursing Progress Note Problem: Per 5150 pt. is here for SA by OD on street drugs after command hallucinations telling him to do so. Pt. states that he took "Fentanyl, black china, meth, 8 ball" in suicide attempt. Pt. states he feels hopeless. Pt. is also delusional, stating, "they won't give me my billion dollars". Pt. states, "I tried killing myself because Im a free michelle. They dont love me but I love them. Yes I do." Interventions: 1:1 assessment, medication administration/education/monitoring, therapeutic conversation, active listening, ensured contract for safety, provided distraction, redirection, and positive reinforcement. Response: Patient was seen pacing at [facility]. He paced most of the day, and through this evening. He reports that hes feeling good and hes happy. I still want to learn to moonwalk. He denies any problems with his medications, and continues to be compliant. Patient still makes delusion statements, but in a humorous way. He seems to be at peace right now. Patient has been consuming a lot of water as he walks. Patient appears to have a grin on his face as he paces with headphones. There have been no adverse behaviors. Plan: Crisis interruption and stabilization in a safe and therapeutic environment. '[facility] is considering conservatorship. Frequent rounding for safety.
[2022-06-07] MEDS: acetaminophen 325mg tablet PO PRN ×2 (04:38→14:00)
[2022-06-07 08:00] VITALS: BP 112/66
[2022-06-07] MEDS: ibuprofen tablet 400 MG TABLET PO SCH ×3 (08:11→17:12)
[2022-06-07] MEDS: benztropine 1mg tablet PO SCH ×2 (08:11→20:31)
[2022-06-07] MEDS: docusate sod 100mg capsule PO SCH (08:12)
[2022-06-07] MEDS: divalproex sod 250mg ER (24-hour) tablet PO SCH (08:12)
[2022-06-07] MEDS: QUEtiapine 25mg tablet PO SCH ×3 (08:12→20:30)
[2022-06-07] MEDS: nicotine 21mg patch - 24 hr TD SCH (08:12)
[2022-06-07] MEDS: clonazePAM 1mg tablet PO PRN ×2 (10:00→17:12)
[2022-06-07] MEDS: traMADol 50MG tablet PO PRN (10:02)
[2022-06-07] MEDS ORDERED: LORazepam 2 mg/ml vial ONE (10:40)
[2022-06-07] MEDS ORDERED: haloperidol lactate 5mg/ml inj ONE (10:41)
[2022-06-07] MEDS ORDERED: diphenhydrAMINE 50 mg/ml inj ONE (10:42)
--- NOTE | 2022-06-07 11:06 | NUR ---
Pt requested PO klonopin and pain reliever at 1000. PO's administered. Christophe's agitation and psychosis did not appear to be lessening. Pt. was pacing up and down the halls speaking of the devil and "I need to get out of here, I choose ." Christophe continued to escalate, yelling and starring out his window stating,"I choose !" PO Haldol offered and declined. Provider notified and order for Im Ativan 2mg, Benadryl 50mg, Haldol 10mg. Christophe had to be encouraged to take the IM. Pt tolerated well. Pt attended snack and is now in his bedroom.
--- NOTE | 2022-06-07 15:17 | NUR ---
Nursing Progress Note Problem: Per 5150 pt. is here for SA by OD on street drugs after command hallucinations telling him to do so. Pt. states that he took "Fentanyl, black china, meth, 8 ball" in suicide attempt. Pt. states he feels hopeless. Pt. is also delusional, stating, "they won't give me my billion dollars". Pt. states, "I tried killing myself because Im a free michelle. They dont love me but I love them. Yes I do." Interventions: 1:1 assessment, medication administration/education/monitoring, therapeutic conversation, active listening, ensured contract for safety, provided distraction, redirection, and positive reinforcement. Response: Pt received awake pacing the halls with headphones at change of shift. Attended breakfast. 1:1 done at bedside, pt. states his sleep is not good, Telma been up since 4am. Pt denies A/VH stating he only experiences this when using meth. PRN klonopin for agitation/psychosis administer at 10am and PRN tramadol for chest pain from working out. Pt. continued to speak of the devil and have delusional bizarre statements, yelling and repeatedly stating I choose . At approx. 11am pt. had increased psychosis/verbal outbursts needing an IM replacement of Ativan 2mg, Haldol 10mg and Benadryl 50mg. Medication effective and pt resting in his bed. Pt did not attend lunch but was seen attending snack. Plan: Crisis interruption and stabilization in a safe and therapeutic environment. Pt's [facility] is considering conservatorship. Frequent rounding for safety.
[2022-06-07 19:00] VITALS: BP 103/45
[2022-06-07] MEDS: prazosin 1mg capsule PO SCH (20:30)
[2022-06-07] MEDS: haloperidol 5mg tablet PO SCH (20:30)
[2022-06-07] MEDS: quetiapine 100mg tablet PO SCH (20:30)
[2022-06-07] MEDS: traZODone 50mg tablet PO SCH (20:31)
--- NOTE | 2022-06-08 02:15 | NUR ---
Nursing Progress Note Problem: Per 5150 pt. is here for SA by OD on street drugs after command hallucinations telling him to do so. Pt. states that he took "Fentanyl, black china, meth, 8 ball" in suicide attempt. Pt. states he feels hopeless. Pt. is also delusional, stating, "they won't give me my billion dollars". Pt. states, "I tried killing myself because Im a free michelle. They dont love me but I love them. Yes I do." Interventions: 1:1 assessment, medication administration/education/monitoring, therapeutic conversation, active listening, ensured contract for safety, provided distraction, redirection, and positive reinforcement. Response: at shift change, pt found in bed with eyes closed; pt awaken for assessment; wearing regular clothes; states he did not have a good day; allowed pt to verbalize why it wasn't a good day, but stated he didn't want to; states he had a nightmare that he "killed his brother & smashed his brains"; cooperative during his assessment; took all of his scheduled meds; isolates to room; denies SI & HI; denies hearing voices. Plan: Crisis interruption and stabilization in a safe and therapeutic environment. Pt's [facility] is considering conservatorship. Frequent rounding for safety.
[2022-06-08] MEDS: haloperidol 5mg tablet PO SCH ×2 (07:44→19:29)
[2022-06-08] MEDS: divalproex sod 250mg ER (24-hour) tablet PO SCH (07:44)
[2022-06-08] MEDS: acetaminophen 325mg tablet PO PRN (07:45)
[2022-06-08] MEDS: ibuprofen tablet 400 MG TABLET PO SCH ×3 (07:45→17:46)
[2022-06-08] MEDS: QUEtiapine 25mg tablet PO SCH ×3 (07:45→19:29)
[2022-06-08] MEDS: nicotine 21mg patch - 24 hr TD SCH (07:46)
[2022-06-08] MEDS: docusate sod 100mg capsule PO SCH (07:46)
[2022-06-08] MEDS: benztropine 1mg tablet PO SCH ×2 (07:46→19:29)
[2022-06-08] MEDS: clonazePAM 1mg tablet PO PRN ×2 (07:46→15:29)
[2022-06-08 08:00] VITALS: BP 113/61
[2022-06-08] MEDS: haloperidol 5mg tablet PO PRN ×2 (10:57→19:36)
[2022-06-08] MEDS: magnesium hydroxide 30ml (MOM) UD suspension PO PRN (13:14)
--- NOTE | 2022-06-08 17:58 | NUR ---
Problem : Pt admitted to [facility] on 06/03/22 on a 5150 for DTS. Pt drank isopropyl alcohol in an attempt to commit suicide. This is the second suicide attempt in the past month. Pt has history of depression and anxiety. Pt is going through a divorce and children are with father, she feels she has nothing to live for. Interventions : Maintained a safe and supportive environment, ensured contract for safety, provided clear and simple instructions, provided active listening and positive encouragement, encouraged participation on the unit, and maintained Q 15min safety checks. Response : Received pt. sleeping in bed at the beginning of the shift, she awoke and came to breakfast. When administering AM meds pt requested atarax. 1:1 was completed at bedside. Pt states, She is not suicidal and never has been, but she has been situationally depressed because her has from her. That there are times she doesnt want to exist anymore, but would never attempt suicide. That she does not & never has had a plan for suicide. Her affect appears blunted and her speech remains soft and she engages in minimal conversation. Pt. continues to isolate in bedroom throughout much of the shift reading her books, but does get up to attend meals & snacks. At approximately 1100 pt. reported anxiety and asked if she had anything more for anxiety. Clonazepam PRN administered with good effectiveness. Provided active listening and positive encouragement. Plan : Pt. continues to require medication adjustments and a safe and supportive environment.
[2022-06-08] MEDS: quetiapine 100mg tablet PO SCH (19:28)
[2022-06-08] MEDS: traZODone 50mg tablet PO SCH (19:29)
[2022-06-08 20:00] VITALS: BP 100/56
[2022-06-08] MEDS: prazosin 1mg capsule PO SCH (21:00)
--- NOTE | 2022-06-08 23:56 | NUR ---
Nursing Progress Note Problem: Per 5150 pt. is here for SA by OD on street drugs after command hallucinations telling him to do so. Pt. states that he took "Fentanyl, black china, meth, 8 ball" in suicide attempt. Pt. states he feels hopeless. Pt. is also delusional, stating, "they won't give me my billion dollars". Pt. states, "I tried killing myself because Im a free michelle. They dont love me but I love them. Yes I do." Interventions: 1:1 assessment, medication administration/education/monitoring, therapeutic conversation, active listening, ensured contract for safety, provided distraction, redirection, and positive reinforcement. Response: Patient in room laying down with eyes shut. Patient reports feeling anxious. Patient denies A/VH SI HI. Patient given 5mg Haldol for anxiety. Patient reports that he wants to go back to [place] because, "they give out free meth." Patient also wants to be conserved and leave [facility] for another facility stating he doesn't feel as if he is getting the help he needs. Patient ate snack in community room isolated to self. The patient took evening meds w/o complications. The patient went to bed shortly after. Plan: Crisis interruption and stabilization in a safe and therapeutic environment. 's [facility] is considering conservatorship. Frequent rounding for safety.
[2022-06-09 08:00] VITALS: BP 110/64
[2022-06-09] MEDS: nicotine 21mg patch - 24 hr TD SCH (08:00)
[2022-06-09] MEDS: QUEtiapine 25mg tablet PO SCH ×3 (08:52→20:02)
[2022-06-09] MEDS: haloperidol 5mg tablet PO SCH ×2 (08:52→20:01)
[2022-06-09] MEDS: divalproex sod 250mg ER (24-hour) tablet PO SCH (08:52)
[2022-06-09] MEDS: clonazePAM 1mg tablet PO PRN (08:52)
[2022-06-09] MEDS: ibuprofen tablet 400 MG TABLET PO SCH ×3 (08:52→17:30)
[2022-06-09] MEDS: benztropine 1mg tablet PO SCH ×2 (08:52→20:02)
[2022-06-09] MEDS: docusate sod 100mg capsule PO SCH (08:54)
--- NOTE | 2022-06-09 12:10 | NUR ---
CONTACT FROM COMMUNITY PROVIDER Karen Revelse MD from [facility] [phone], . Received phone call from Karen Reveles MD from [facility], who tracked down client---who has been her patient since his teens--via [facility]. Reveles stated client gave his okay to speak with Kalani Reveles MD. Dr. Garrett sought out information because client's mother has not know client's location and has been very concerned. Dr. Reveles hopes for a doctor to doctor call re client. This clinical writer will give this information to Dr. Vargas. Addendum: 06/11/22 at 1444 by Miranda ROCA Correction on [facility] number/Karen Reveles MD: [phone]
[2022-06-09] MEDS: acetaminophen 325mg tablet PO PRN (12:18)
[2022-06-09] MEDS: NICOTINE POLACRILEX 2 MG LOZENGE BC PRN (12:40)
--- NOTE | 2022-06-09 13:18 | NUR ---
Reassessment: Pt continues on Regular diet while receiving double protein TID, eating 100% of meals meeting est needs at this time. [facility] 06/06 receiving routine and PRN bowel care. No change to recommendations at this time, will continue to monitor. Recommendations: 1) Continue regular diet 2) Double eggs WB, double meat BIDLD 3) Bowel care PRN 4) Weekly scaled weights Addendum: 06/09/22 at [address] Amended: Links added.
[2022-06-09] MEDS ORDERED: haloperidol lactate 5mg/ml inj ONE (15:06)
[2022-06-09] MEDS ORDERED: diphenhydrAMINE 50 mg/ml inj ONE (15:07)
[2022-06-09] MEDS ORDERED: LORazepam 2 mg/ml vial ONE (15:08)
--- NOTE | 2022-06-09 17:31 | NUR ---
Nursing Progress Note Problem: Per 5150 pt. is here for SA by OD on street drugs after command hallucinations telling him to do so. Pt. states that he took "Fentanyl, black china, meth, 8 ball" in suicide attempt. Pt. states he feels hopeless. Pt. is also delusional, stating, "they won't give me my billion dollars". Pt. states, "I tried killing myself because Im a free michelle. They dont love me but I love them. Yes I do." Interventions: 1:1 assessment, medication administration/education/monitoring, therapeutic conversation, active listening, ensured contract for safety, provided distraction, redirection, and positive reinforcement. Response: Received Pt in his room resting and in no distress at the beginning of this shift. Pt cooperative with vitals and walked halls before breakfast. Pt ate well and returned to his room with some yelling. Pt later broke the exit sign in hallway near his room. Pt refused AM meds at first, but with patience and persistence he became willing to take them, along with Klonopin PRN and did take them. Pt became increasingly agitated, wanting to leave and becoming angry that his mother was worried about him. He complained that other Pts had left and was anxious about the possibility of being conserved. Pt c/o demons and witchcraft, and was able to calm while talking with this RN. Pt had intermittent loud outbursts until afternoon when he was punching murry, screaming and threatening other Pts. Pt was given emergent IM meds and then placed in restraints with security and other hospital staff. Pt was monitored on los observation while in restraints and released to use bathroom and have a snack when his mood became cooperative. Pt agreed to calm behavior and wanted to watch football. Pt was agreeable and taken out of seclusion before dinner. Discussed his current medications and PRN usage with Dr Lantigua who will be making adjustments. Plan: Crisis interruption and stabilization in a safe and therapeutic environment. Pt's county is considering conservatorship. Frequent rounding for safety.
[2022-06-09 19:33] VITALS: BP 112/71
[2022-06-09] MEDS: quetiapine 100mg tablet PO SCH (19:58)
[2022-06-09] MEDS: prazosin 1mg capsule PO SCH (19:59)
[2022-06-09] MEDS: divalproex 250mg tablet, delayed-release PO SCH (19:59)
[2022-06-09] MEDS: traZODone 50mg tablet PO SCH (20:00)
[2022-06-09] MEDS: LORazepam 1 MG tablet PO SCH (20:02)
--- NOTE | 2022-06-10 00:10 | NUR ---
Nursing Progress Note Problem: Per 5150 pt. is here for SA by OD on street drugs after command hallucinations telling him to do so. Pt. states that he took "Fentanyl, black china, meth, 8 ball" in suicide attempt. Pt. states he feels hopeless. Pt. is also delusional, stating, "they won't give me my billion dollars". Pt. states, "I tried killing myself because Im a free michelle. They dont love me but I love them. Yes I do." Interventions: 1:1 assessment, medication administration/education/monitoring, therapeutic conversation, active listening, ensured contract for safety, provided distraction, redirection, and positive reinforcement. Response: Patient in community room at shift change watching football with other cohorts. Patient seemed at ease and was making jokes with peers. Patient did talk to CN at times about conservatorship. Patient reports that he was okay but worried about his mom. Patient began looking fidgety and restless around snack time. This nurse asked if was ready for evening meds and the patient stated that he was. The patient ate snack and then took his evening meds w/o complications. Patient went to bed shortly after. Plan: Crisis interruption and stabilization in a safe and therapeutic environment. '[facility] is considering conservatorship. Frequent rounding for safety.
[2022-06-10] MEDS: LORazepam 1 MG tablet PO SCH ×3 (07:32→19:27)
[2022-06-10] MEDS: benztropine 1mg tablet PO SCH ×3 (07:33→19:29)
[2022-06-10] MEDS: divalproex 250mg tablet, delayed-release PO SCH ×2 (07:33→19:28)
[2022-06-10] MEDS: ibuprofen tablet 400 MG TABLET PO SCH ×3 (07:33→17:35)
[2022-06-10] MEDS: haloperidol 5mg tablet PO SCH ×3 (07:33→19:27)
[2022-06-10] MEDS: docusate sod 100mg capsule PO SCH (07:33)
[2022-06-10] MEDS: NICOTINE POLACRILEX 2 MG LOZENGE BC PRN (07:33)
[2022-06-10] MEDS: QUEtiapine 25mg tablet PO SCH ×3 (07:33→19:29)
[2022-06-10] MEDS: nicotine 21mg patch - 24 hr TD SCH (07:38)
[2022-06-10 08:00] VITALS: BP 106/54
--- NOTE | 2022-06-10 15:23 | NUR ---
Nursing Progress Note Problem: Per 5150 pt. is here for SA by OD on street drugs after command hallucinations telling him to do so. Pt. states that he took "Fentanyl, black china, meth, 8 ball" in suicide attempt. Pt. states he feels hopeless. Pt. is also delusional, stating, "they won't give me my billion dollars". Pt. states, "I tried killing myself because Im a free michelle. They dont love me but I love them. Yes I do." Interventions: 1:1 assessment, medication administration/education/monitoring, therapeutic conversation, active listening, ensured contract for safety, provided distraction, redirection, encouragement, positive reinforcement, and Q15 minute safety checks. Response: Pt was up before breakfast requesting a nicotine lozenge. Pt was cooperative with scheduled medications. Pt is somewhat restless at times, pt paces the hallway and socializes minimally with staff and peers. Pt is able to communicate his needs. No unsafe behaviors or verbal or physical outbursts this shift. Pt does c/o increased anxiety at times mostly about whether or not he is being conserved and where he will be going from here. Pt states that he doesn't mind conservatorship so much he just doesn't want to go to [place]. Pt states "that place is crazy, that place is a jungle, people having sex in the rooms and shit like that." Pt requested PRN Klonopin and was given Klonopin 2 mg at 1529. Plan: Crisis interruption and stabilization in a safe and therapeutic environment. Pt's [facility] is considering conservatorship.
[2022-06-10] MEDS: clonazePAM 1mg tablet PO PRN (15:29)
[2022-06-10] MEDS: haloperidol 5mg tablet PO PRN (18:12)
[2022-06-10] MEDS: traZODone 50mg tablet PO SCH (19:28)
[2022-06-10] MEDS: quetiapine 100mg tablet PO SCH (19:29)
[2022-06-10] MEDS: prazosin 1mg capsule PO SCH (19:35)
[2022-06-10 20:55] VITALS: BP 115/70
--- NOTE | 2022-06-11 00:01 | NUR ---
Nursing Progress Note Problem: Per 5150 pt. is here for SA by OD on street drugs after command hallucinations telling him to do so. Pt. states that he took "Fentanyl, black china, meth, 8 ball" in suicide attempt. Pt. states he feels hopeless. Pt. is also delusional, stating, "they won't give me my billion dollars". Pt. states, "I tried killing myself because Im a free michelle. They dont love me but I love them. Yes I do." Interventions: 1:1 assessment, medication administration/education/monitoring, therapeutic conversation, active listening, ensured contract for safety, provided distraction, redirection, and positive reinforcement. Response:Patient pacing in hallway at shift change. Patient reports having a good day but he was having a hard time falling asleep. Patient seen going in and out of his room several times trying to go to sleep at 1830. Patient redirected and it was explained t the patient that it was to early to go to sleep. Patient walked in hallway with peers. Patient took evening meds w/o complications. Patient asked for his bed to be remade. Patient went to bed after eating snack. Plan: Crisis interruption and stabilization in a safe and therapeutic environment. '[facility] is considering conservatorship. Frequent rounding for safety.
[2022-06-11 07:28] VITALS: BP 106/54
[2022-06-11] MEDS: LORazepam 1 MG tablet PO SCH ×3 (07:42→20:11)
[2022-06-11] MEDS: ibuprofen tablet 400 MG TABLET PO SCH ×3 (07:42→17:34)
[2022-06-11] MEDS: divalproex 250mg tablet, delayed-release PO SCH ×2 (07:42→20:11)
[2022-06-11] MEDS: QUEtiapine 25mg tablet PO SCH ×3 (07:43→20:10)
[2022-06-11] MEDS: benztropine 1mg tablet PO SCH ×3 (07:43→20:12)
[2022-06-11] MEDS: docusate sod 100mg capsule PO SCH (07:43)
[2022-06-11] MEDS: haloperidol 5mg tablet PO SCH ×3 (07:43→20:12)
[2022-06-11] MEDS: nicotine 21mg patch - 24 hr TD SCH (07:46)
--- NOTE | 2022-06-11 14:48 | NUR ---
Nursing Progress Note Problem: Per 5150 pt. is here for SA by OD on street drugs after command hallucinations telling him to do so. Pt. states that he took "Fentanyl, black china, meth, 8 ball" in suicide attempt. Pt. states he feels hopeless. Pt. is also delusional, stating, "they won't give me my billion dollars". Pt. states, "I tried killing myself because Im a free michelle. They dont love me but I love them. Yes I do." Interventions: 1:1 assessment, medication administration/education/monitoring, therapeutic conversation, active listening, ensured contract for safety, provided distraction, redirection, encouragement, positive reinforcement, and Q15 minute safety checks. Response: Pt was up before breakfast. Pt reported that he slept "really good." He also reports that his nerves twitch sometimes during the night and he wants to know why. Pt speech was rapid/pressured and unclear at times. Pt stated that he feels normal in the morning before the meds. 10 minutes later pt requested his "Bipolar meds." Pt stated that he just wanted to get them over with. Pt was restless and pacing in the hallway around 1130. Pt reported, "I feel anxious but I don't want to take a Benzo." Pt reported that walking helps. Pt stated, "I'll be honest with you, when I was out on the streets off my meds, I would take meth." "It made me smell like Clorox and it bermudez your skin. One time they had to flush the poison from my eyes." Pt was anxious to speak with the professor of social work today about his discharge plan. Pt is thinking conservatorship might not be so bad. Pt is hopeful maybe he could get his life together and acquire housing when he comes off [employer]. Pt was observed smiling and socializing with staff and select peers today. Pt played EDWARD with a peer. Plan: Pt in need of crisis interruption and stabilization in a safe and therapeutic environment. Pt's formerly [facility] is considering conservatorship.
[2022-06-11] MEDS: clonazePAM 1mg tablet PO PRN (17:34)
[2022-06-11] MEDS: NICOTINE POLACRILEX 2 MG LOZENGE BC PRN (18:38)
[2022-06-11 20:00] VITALS: BP 132/55
[2022-06-11] MEDS: quetiapine 100mg tablet PO SCH (20:10)
[2022-06-11] MEDS: prazosin 1mg capsule PO SCH (20:11)
[2022-06-11] MEDS: traZODone 50mg tablet PO SCH (20:12)
[2022-06-11] MEDS: acetaminophen 325mg tablet PO PRN (20:34)
--- NOTE | 2022-06-12 04:31 | NUR ---
nursing Progress Note Problem: Per 5150 pt. is here for SA by OD on street drugs after command hallucinations telling him to do so. Pt. states that he took "Fentanyl, black china, meth, 8 ball" in suicide attempt. Pt. states he feels hopeless. Pt. is also delusional, stating, "they won't give me my billion dollars". Pt. states, "I tried killing myself because Im a free michelle. They dont love me but I love them. Yes I do." Interventions: 1:1 assessment, medication administration/education/monitoring, therapeutic conversation, active listening, ensured contract for safety, provided distraction, redirection, encouragement, positive reinforcement, and Q15 minute safety checks. Response: Patient was found pacing around unit at the beginning of shift. Patient was observed socializing and singing with other patients. Patient continued to pace until coming to nurse complaining about pain in his finger and other patients. Patient requested Tylenol for pain in finger. Patient participated in snack before asking for night medications so he could go to bed. Patient slept for a short period before getting up complaining of nerve firing in his shoulder. Patient quickly redirected himself to once again telling stories about his family. Plan: Pt in need of crisis interruption and stabilization in a safe and therapeutic environment. '[facility] is considering conservatorship.
[2022-06-12] MEDS: NICOTINE POLACRILEX 2 MG LOZENGE BC PRN (07:43)
[2022-06-12 08:00] VITALS: BP 109/64
[2022-06-12] MEDS: haloperidol 5mg tablet PO SCH ×4 (08:19→19:28)
[2022-06-12] MEDS: benztropine 1mg tablet PO SCH ×5 (08:20→19:32)
[2022-06-12] MEDS: docusate sod 100mg capsule PO SCH (08:20)
[2022-06-12] MEDS: divalproex 250mg tablet, delayed-release PO SCH ×2 (08:20→19:16)
[2022-06-12] MEDS: ibuprofen tablet 400 MG TABLET PO SCH ×3 (08:20→17:34)
[2022-06-12] MEDS: LORazepam 1 MG tablet PO SCH ×3 (08:20→19:17)
[2022-06-12] MEDS: QUEtiapine 25mg tablet PO SCH ×3 (08:20→19:16)
[2022-06-12] MEDS: nicotine 21mg patch - 24 hr TD SCH (08:21)
[2022-06-12] MEDS: acetaminophen 325mg tablet PO PRN (08:44)
[2022-06-12] MEDS: traMADol 50MG tablet PO PRN (09:53)
--- NOTE | 2022-06-12 15:55 | NUR ---
Nursing Progress Note Problem: Per 5150 pt. is here for SA by OD on street drugs after command hallucinations telling him to do so. Pt. states that he took "Fentanyl, black china, meth, 8 ball" in suicide attempt. Pt. states he feels hopeless. Pt. is also delusional, stating, "they won't give me my billion dollars". Pt. states, "I tried killing myself because Im a free michelle. They dont love me but I love them. Yes I do." Interventions: Provided 1:1 assessment with therapeutic communication and active listening, medication administration/education/monitoring, provided redirection and encouragement, positive reinforcement, monitored Q15 minute safety checks. Response: Pt up pacing the floors with headphones on most of the day. He is pleasant and cooperative with staff. He took his medications as prescribed and was given Nicotine lozenges as requested. His speech is rapid, pressured and difficult to understand at times. Affect bright. Plan: Pt in need of crisis interruption and stabilization in a safe and therapeutic environment. '[facility] is considering conservatorship.
[2022-06-12] MEDS: clonazePAM 1mg tablet PO PRN (18:37)
[2022-06-12] MEDS: prazosin 1mg capsule PO SCH (19:16)
[2022-06-12] MEDS ORDERED: benztropine 1mg tablet PO ONE (19:16)
[2022-06-12] MEDS ORDERED: haloperidol 5mg tablet PO ONE (19:16)
[2022-06-12] MEDS: quetiapine 100mg tablet PO SCH (19:17)
[2022-06-12] MEDS: traZODone 50mg tablet PO SCH (19:18)
[2022-06-12 20:40] VITALS: BP 128/78
--- NOTE | 2022-06-13 01:33 | NUR ---
Nursing Progress Note Problem: Per 5150 pt. is here for SA by OD on street drugs after command hallucinations telling him to do so. Pt. states that he took "Fentanyl, black china, meth, 8 ball" in suicide attempt. Pt. states he feels hopeless. Pt. is also delusional, stating, "they won't give me my billion dollars". Pt. states, "I tried killing myself because Im a free michelle. They dont love me but I love them. Yes I do." Interventions: Provided 1:1 assessment with therapeutic communication and active listening, medication administration/education/monitoring, provided redirection and encouragement, positive reinforcement, monitored Q15 minute safety checks. Response: Patient was found laying down at change of shift. Patient later cam to nurse stating he was having hallucinations. Patient was given prn Klonopin. Patient took medications and began pacing halls while listening to headphones. Patient was found later complaining that his eyes felt stuck in a upward position , patient became upset and tearful. was called and order his scheduled night medications be given early including an additional 1mg Cogentin and with holding his haloperidol. Patient took all medications without issue and returned to bed. Patient got up an hour later stating he was feeling better and began pacing the halls and listening to music again. Plan: Pt in need of crisis interruption and stabilization in a safe and therapeutic environment. Pt's [facility] is considering conservatorship.
[2022-06-13] MEDS: divalproex 250mg tablet, delayed-release PO SCH ×2 (07:28→19:50)
[2022-06-13] MEDS: docusate sod 100mg capsule PO SCH (07:28)
[2022-06-13] MEDS: benztropine 1mg tablet PO SCH ×2 (07:28→19:49)
[2022-06-13] MEDS: nicotine 21mg patch - 24 hr TD SCH (07:29)
[2022-06-13] MEDS: ibuprofen tablet 400 MG TABLET PO SCH ×3 (07:29→17:47)
[2022-06-13] MEDS: LORazepam 1 MG tablet PO SCH ×3 (07:29→19:49)
[2022-06-13] MEDS: QUEtiapine 25mg tablet PO SCH ×3 (07:29→19:49)
[2022-06-13] MEDS: haloperidol 5mg tablet PO SCH ×3 (07:29→19:50)
[2022-06-13 08:35] VITALS: BP 107/56
[2022-06-13] MEDS: acetaminophen 325mg tablet PO PRN ×2 (08:55→14:56)
[2022-06-13] MEDS: NICOTINE POLACRILEX 2 MG LOZENGE BC PRN (17:47)
[2022-06-13] MEDS: clonazePAM 1mg tablet PO PRN (17:47)
--- NOTE | 2022-06-13 18:01 | NUR ---
Nursing Progress Note Problem: Per 5150 pt. is here for SA by OD on street drugs after command hallucinations telling him to do so. Pt. states that he took "Fentanyl, black china, meth, 8 ball" in suicide attempt. Pt. states he feels hopeless. Pt. is also delusional, stating, "They won't give me my billion dollars". Pt. states, "I tried killing myself because Im a free michelle. They dont love me but I love them. Yes I do." Interventions: Provided 1:1 assessment with therapeutic communication and active listening, medication administration/education/monitoring, provided redirection and encouragement, positive reinforcement, monitored Q15 minute safety checks. Response: Patient is resting quietly in bed at the start of the shift. Cooperative with assessment and medications. Paces the unit in the morning and states, Im walking a lot because Im trying to lose 50 pounds. In the late morning patient complains of nausea and is noted dry heaving in the bathroom. Test done to r/o covid which is negative. Patient takes a nap in the afternoon. Complains of leg pain relieved by PRN Tylenol and routine Motrin. Denies any SI/ HI. Endorses occasional AH but states, Not right now. Plan: Pt in need of crisis interruption and stabilization in a safe and therapeutic environment. Pt's formerly [facility] is considering conservatorship.
[2022-06-13] MEDS: prazosin 1mg capsule PO SCH (19:48)
[2022-06-13] MEDS: traZODone 50mg tablet PO SCH (19:48)
[2022-06-13] MEDS: quetiapine 100mg tablet PO SCH (19:48)
[2022-06-13 20:00] VITALS: BP 115/51
--- NOTE | 2022-06-14 04:24 | NUR ---
Nursing Progress Note Problem: Per 5150 pt. is here for SA by OD on street drugs after command hallucinations telling him to do so. Pt. states that he took "Fentanyl, black china, meth, 8 ball" in suicide attempt. Pt. states he feels hopeless. Pt. is also delusional, stating, "They won't give me my billion dollars". Pt. states, "I tried killing myself because Im a free michelle. They dont love me but I love them. Yes I do." Interventions: Provided 1:1 assessment with therapeutic communication and active listening, medication administration/education/monitoring, provided redirection and encouragement, positive reinforcement, monitored Q15 minute safety checks. Response: Received patient laying in bed. Patient complained of feeling sick. Patient stated he ad a headache had was nauseous. Patient was given chicken broth and retuned to bed. Patient spent majority of shift in bed except for coming out to take night medications and participating in snack time. Patient was offered pain medication for headache and pt refused. Plan: Pt in need of crisis interruption and stabilization in a safe and therapeutic environment. '[facility] is considering conservatorship.
[2022-06-14] MEDS: haloperidol 5mg tablet PO SCH ×3 (08:23→20:51)
[2022-06-14] MEDS: QUEtiapine 25mg tablet PO SCH ×3 (08:23→20:49)
[2022-06-14] MEDS: ibuprofen tablet 400 MG TABLET PO SCH ×3 (08:23→16:57)
[2022-06-14] MEDS: LORazepam 1 MG tablet PO SCH ×3 (08:23→20:49)
[2022-06-14] MEDS: docusate sod 100mg capsule PO SCH (08:23)
[2022-06-14] MEDS: benztropine 1mg tablet PO SCH ×2 (08:24→20:48)
[2022-06-14] MEDS: divalproex 250mg tablet, delayed-release PO SCH ×2 (08:24→20:48)
[2022-06-14] MEDS: nicotine 21mg patch - 24 hr TD SCH (08:26)
[2022-06-14] MEDS: magnesium hydroxide 30ml (MOM) UD suspension PO PRN (08:33)
[2022-06-14 08:36] VITALS: BP 95/53
[2022-06-14] MEDS: NICOTINE POLACRILEX 2 MG LOZENGE BC PRN (14:41)
[2022-06-14] MEDS: clonazePAM 1mg tablet PO PRN (15:18)
--- NOTE | 2022-06-14 16:22 | NUR ---
Nursing Progress Note: Problem : Per 5150 pt. is here for SA by OD on street drugs after command hallucinations telling him to do so. Pt. states that he took "Fentanyl, black china, meth, 8 ball" in suicide attempt. Pt. states he feels hopeless. Pt. is also delusional, stating, "they won't give me my billion dollars". Pt. states, "I tried killing myself because Im a free michelle. They dont love me but I love them. Yes I do." Interventions : Introduced self and established rapport, maintained a safe and supportive environment, ensured contract for safety, provided clear and simple instructions, attempted to orient to reality, monitored behavior and provided intervention as needed, and maintained Q 15min safety checks. Response : Received pt. sleeping in bed at the beginning of the shift, he awoke for breakfast and afterwards returned back to bed. 1:1 was completed at bedside, pt. presents as cooperative, restless, guarded, and withdrawn. His speech is pressured and difficult to understand, and he responds minimally to direct questions. Pt. denies any S/I, however admits to some ongoing depression and anxiety. When questioned by this magazine writer regarding the cause, pt. stated, "They want to put me on conservatorship." Pt. also endorsed A/CUETO, and upon further questioning stated in a disorganized manner, "I see three thirty three." Pt. isolated in his room throughout the morning napping intermittently. In the afternoon, pt. was placed on a 5270 hold and he reported increased depression and anxiety r/t this. Pt. was observed to be pacing in the hallway with a constricted affect. He stated, "I think I'm in the great depression. I thought it was only five more days, now I'm going to be here forever." This magazine writer offered active listening and positive encouragement, and pt. reported some contentment. PRN Clonazepam was administered per pt. request, and will continue to monitor closely. Plan : Per Dr. Yeboah, pt. continues to require a safe and supportive environment. Conservatorship is recommended. Addendum: 06/14/22 at 1748 by Delmy Kaminski RN Pt. became slightly agitated r/t his 5270 mental health hold, and stated, "I can't stay here for twenty eight more days!" Active listening and positive encouragement was provided along with OFE Wu, will continue to monitor pt. closely.
[2022-06-14] MEDS: haloperidol 5mg tablet PO PRN (17:40)
[2022-06-14 19:00] VITALS: BP 105/56
[2022-06-14] MEDS: traZODone 50mg tablet PO SCH (20:49)
[2022-06-14] MEDS: prazosin 1mg capsule PO SCH (20:50)
[2022-06-14] MEDS: quetiapine 100mg tablet PO SCH (20:50)
--- NOTE | 2022-06-14 23:58 | NUR ---
Nursing Progress Note Problem: Per 5150 pt. is here for SA by OD on street drugs after command hallucinations telling him to do so. Pt. states that he took "Fentanyl, black china, meth, 8 ball" in suicide attempt. Pt. states he feels hopeless. Pt. is also delusional, stating, "They won't give me my billion dollars". Pt. states, "I tried killing myself because Im a free michelle. They dont love me but I love them. Yes I do." Interventions: Provided 1:1 assessment with therapeutic communication and active listening, medication administration/education/monitoring, provided redirection and encouragement, positive reinforcement, monitored Q15 minute safety checks. Response: Pt made statements to staff about how upset he was that he got put on a 5270 and doesn't want to be conserved. He remained calm but with a depressed affect. He isolated to his room the entire shift and mainly slept. He took his HS medications with out issue. Plan: Pt in need of crisis interruption and stabilization in a safe and therapeutic environment. Pt's [facility] is considering conservatorship.
[2022-06-15 08:00] VITALS: BP 98/62
[2022-06-15] MEDS: ibuprofen tablet 400 MG TABLET PO SCH ×3 (08:02→16:52)
[2022-06-15] MEDS: docusate sod 100mg capsule PO SCH (08:02)
[2022-06-15] MEDS: LORazepam 1 MG tablet PO SCH ×3 (08:02→20:14)
[2022-06-15] MEDS: benztropine 1mg tablet PO SCH ×2 (08:02→20:14)
[2022-06-15] MEDS: haloperidol 5mg tablet PO SCH ×3 (08:02→20:14)
[2022-06-15] MEDS: divalproex 250mg tablet, delayed-release PO SCH ×2 (08:02→20:13)
[2022-06-15] MEDS: QUEtiapine 25mg tablet PO SCH ×3 (08:02→20:14)
[2022-06-15] MEDS: nicotine 21mg patch - 24 hr TD SCH (08:04)
[2022-06-15] MEDS: NICOTINE POLACRILEX 2 MG LOZENGE BC PRN ×2 (08:32→11:50)
[2022-06-15] MEDS: acetaminophen 325mg tablet PO PRN (12:13)
[2022-06-15] MEDS: magnesium hydroxide 30ml (MOM) UD suspension PO PRN (13:37)
[2022-06-15] MEDS: clonazePAM 1mg tablet PO PRN ×2 (14:06→22:52)
--- NOTE | 2022-06-15 16:18 | NUR ---
Nursing Progress Note: Problem : Per 5150 pt. is here for SA by OD on street drugs after command hallucinations telling him to do so. Pt. states that he took "Fentanyl, black china, meth, 8 ball" in suicide attempt. Pt. states he feels hopeless. Pt. is also delusional, stating, "they won't give me my billion dollars". Pt. states, "I tried killing myself because Im a free michelle. They dont love me but I love them. Yes I do." Interventions : Maintained a safe and supportive environment, ensured contract for safety, provided clear and simple instructions, attempted to orient to reality, monitored behavior and provided intervention as needed, provided active listening and positive encouragement, encouraged independent performance of ADLs,and maintained Q 15min safety checks. Response : Received pt. sleeping in bed at the beginning of the shift, he awoke for breakfast and afterwards returned back to bed as is his routine. 1:1 was completed at bedside, pt. continues to present as restless and guarded. His speech remains pressured and difficult to understand and his thought process is somewhat tangental. Pt's affect is constricted and he reports ongoing depression and anxiety r/t his mental health hold. He also endorses some concern about gaining weight from his medications and reports he recently lost two-hundred pounds (diet was changed to vegetarian per pt. request). Pt. also endorses some ongoing A/CUETO, but does not appear to be actively responding to internal stimuli. He continues on to talk in a disorganized manner about place he's lived, substance abuse issued, and different family members. Pt. again naps intermittently during the day and c/o some somatic s/s including left foot and bilateral wrist pain, PRN Tylenol was administered along with scheduled Motrin with effectiveness. He was encouraged to change his linens which appeared to be full of crumbs, and required assistance from staff in doing so. At approximately 1400, pt. exhibited increased anxiety stating, "I" feel like I will be stuck here forever!" He was provided with positive encouragement and a quiet environment and was able to nap. However, in the evening pt. again exhibited increased anxiety and agitation and PRN Haldol was administered without effectiveness (see next note). Plan : Per Dr. Yeboah, pt. continues to require a safe and supportive environment. Conservatorship is recommended.
[2022-06-15] MEDS: haloperidol 5mg tablet PO PRN (16:51)
[2022-06-15] MEDS ORDERED: haloperidol 5mg tablet PO ONE (17:34)
[2022-06-15] MEDS ORDERED: LORazepam 1 MG tablet PO ONE (17:35)
[2022-06-15] MEDS ORDERED: diphenhydrAMINE 25mg capsule PO ONE (17:35)
--- NOTE | 2022-06-15 19:16 | NUR ---
PRNs Administered: Ativan 1mg, Haldol 5mg, and Benadryl 100mg. Pt. was observed to be increasingly anxious and agitated AEB pacing the unit, clinching his fists, and scowling. Interventions Offered: This blurb writer attempted to provide active listening and positive encouragement to pt, however he retreated to his room slamming the door. He yelled out, "I can't handle this anymore!" Pt. then requested medications to help him relax and this was endorsed to Dr. Yeboah. Response to Medication: Pt. remained in his room and accepted ordered medications, he thanked staff and stated, "God bless you." Will continue to monitor closely.
[2022-06-15 19:44] VITALS: BP 134/59
[2022-06-15] MEDS: prazosin 1mg capsule PO SCH (20:13)
[2022-06-15] MEDS: quetiapine 100mg tablet PO SCH (20:13)
[2022-06-15] MEDS: traZODone 50mg tablet PO SCH (20:13)
--- NOTE | 2022-06-16 05:07 | NUR ---
Nursing Progress Note: Problem : Per 5150 pt. is here for SA by OD on street drugs after command hallucinations telling him to do so. Pt. states that he took "Fentanyl, black china, meth, 8 ball" in suicide attempt. Pt. states he feels hopeless. Pt. is also delusional, stating, "they won't give me my billion dollars". Pt. states, "I tried killing myself because Im a free michelle. They dont love me but I love them. Yes I do." Interventions : Maintained a safe and supportive environment, ensured contract for safety, provided clear and simple instructions, attempted to orient to reality, monitored behavior and provided intervention as needed, provided active listening and positive encouragement, encouraged independent performance of ADLs,and maintained Q 15min safety checks. Response : Received pt. pacing on the unit at the beginning of the shift. Pt. continues to present as somewhat restless and his speech remains pressured and difficult to understand. However, pt's affect is brighter this shift and he states, "I'm just going to go through with conservatorship. They can help me get an apartment and [place] Pt showered this shift. Pt. attended snack and requested his HS medications afterwards. However, he had difficulty falling asleep r/t reports of ongoing anxiety, and PRN Clonazepam was administered with effectiveness. Plan : Per Dr. Yeboah, pt. continues to require a safe and supportive environment. Conservatorship is recommended.
[2022-06-16 07:57] VITALS: BP 110/62
[2022-06-16] MEDS: QUEtiapine 25mg tablet PO SCH ×3 (08:02→20:35)
[2022-06-16] MEDS: divalproex 250mg tablet, delayed-release PO SCH ×2 (08:02→20:34)
[2022-06-16] MEDS: haloperidol 5mg tablet PO SCH ×4 (08:02→20:35)
[2022-06-16] MEDS: ibuprofen tablet 400 MG TABLET PO SCH ×3 (08:03→17:57)
[2022-06-16] MEDS: benztropine 1mg tablet PO SCH ×2 (08:03→20:33)
[2022-06-16] MEDS: docusate sod 100mg capsule PO SCH (08:03)
[2022-06-16] MEDS: LORazepam 1 MG tablet PO SCH ×4 (08:03→20:33)
[2022-06-16] MEDS: nicotine 21mg patch - 24 hr TD SCH (08:04)
[2022-06-16] MEDS: haloperidol 5mg tablet PO PRN (12:28)
--- NOTE | 2022-06-16 14:12 | NUR ---
[address]anova
[2022-06-16] MEDS: acetaminophen 325mg tablet PO PRN (14:32)
--- NOTE | 2022-06-16 16:30 | NUR ---
NURSING PROGRESS NOTE Problem : Per 5150 pt. is here for SA by OD on street drugs after command hallucinations telling him to do so. Pt. states that he took "Fentanyl, black china, meth, 8 ball" in suicide attempt. Pt. states he feels hopeless. Pt. is also delusional, stating, "they won't give me my billion dollars". Pt. states, "I tried killing myself because Im a free michelle. They dont love me but I love them. Yes I do." Interventions : Maintained a safe and supportive environment, ensured contract for safety, provided clear and simple instructions, attempted to orient to reality, monitored behavior and provided intervention as needed, provided active listening and positive encouragement, encouraged independent performance of ADLs, and maintained Q 15min safety checks. Response : Received patient sleeping at shift change. Pt was given PRN Clonazepam last night. Pt slept 7.25 house per sleep assessment. Pt was cooperative with care and AM medication. Pt finished his breakfast then went back to sleep. Pt presented calm and when asked how he was states the medicine is working. My depression is getting better, its going away. Pts speech is difficult to understand at times r/t mumbling. Pt later came to investment underwriter I am going to fight my conservatorship, I am tired of being here. Pt became more anxious throughout the morning saying at one point I dont even know why I am taking my medication. Pt repeating I am tired of being here. What good is it taking my medication? Write reminded pt what he said earlier about his medication helping. Pt took noon meds without issue, PRN Haldol 5mg was administered at same time. Pt handled court hearing without incident. Pt requested Tylenol for bilateral leg pain then spent the afternoon in his room. Plan : Patients mood continues to be labile and requires medication adjustments in a safe and supportive environment. Pts conservatorship is still going forward. Addendum: 06/16/22 at 1802 by Sri Ye RN Administered pt's 1699 medication without issue. Pt asked what they were then took them. Pt reports "this medicine makes me sleepy."
[2022-06-16 20:00] VITALS: BP 98/54
[2022-06-16] MEDS: prazosin 1mg capsule PO SCH (20:34)
[2022-06-16] MEDS: traZODone 50mg tablet PO SCH (20:34)
[2022-06-16] MEDS: quetiapine 100mg tablet PO SCH (20:35)
--- NOTE | 2022-06-17 01:34 | NUR ---
NURSING PROGRESS NOTE Problem : Per 5150 pt. is here for SA by OD on street drugs after command hallucinations telling him to do so. Pt. states that he took "Fentanyl, black china, meth, 8 ball" in suicide attempt. Pt. states he feels hopeless. Pt. is also delusional, stating, "they won't give me my billion dollars". Pt. states, "I tried killing myself because Im a free michelle. They dont love me but I love them. Yes I do." Interventions : Maintained a safe and supportive environment, ensured contract for safety, provided clear and simple instructions, attempted to orient to reality, monitored behavior and provided intervention as needed, provided active listening and positive encouragement, encouraged independent performance of ADLs, and maintained Q 15min safety checks. Response : Pt spent entire shift in bed resting. When I asked him how he was doing he stated "Not good." He continues to state that he is not happy with being here. He denies S/I, H/I, A/V hallucinations, no delusional statements were made. Affect was flat, hygiene fair. Continues to have poor insight into his reason for being here. Took his night time meds without problems and denies any side effects other than "making me sleepy." Discussed ways to control his anger when he starts to feel frustrated. He verbalized understanding and stated he will try to work on it. Plan : Patients mood continues to be labile and requires medication adjustments in a safe and supportive environment. Pts conservatorship is still going forward.
--- NOTE | 2022-06-17 07:19 | NUR ---
Reassessment: Per nursing documentation diet was changed to vegetarian per pt request. Pt continues to receive double protein TID, eating 100% of meals meeting est needs at this time. [facility] 06/15 receiving routine and PRN bowel care. No change to recommendations at this time, will continue to monitor. Recommendations: 1) Continue Vegetarian diet per pt request 2) Double eggs WB, double meat BIDLD 3) Bowel care PRN 4) Weekly scaled weights Addendum: 06/17/22 at [address] Amended: Links added.
[2022-06-17] MEDS: LORazepam 1 MG tablet PO SCH ×4 (07:24→19:03)
[2022-06-17] MEDS: benztropine 1mg tablet PO SCH ×2 (07:24→19:04)
[2022-06-17] MEDS: docusate sod 100mg capsule PO SCH (07:24)
[2022-06-17] MEDS: QUEtiapine 25mg tablet PO SCH ×3 (07:25→19:02)
[2022-06-17] MEDS: ibuprofen tablet 400 MG TABLET PO SCH ×3 (07:25→16:41)
[2022-06-17] MEDS: nicotine 21mg patch - 24 hr TD SCH (07:25)
[2022-06-17] MEDS: divalproex 250mg tablet, delayed-release PO SCH ×2 (07:25→19:04)
[2022-06-17] MEDS: haloperidol 5mg tablet PO SCH ×4 (07:25→19:02)
[2022-06-17 08:00] VITALS: BP 100/45
[2022-06-17] MEDS: clonazePAM 1mg tablet PO PRN ×2 (10:17→20:19)
[2022-06-17] MEDS: NICOTINE POLACRILEX 2 MG LOZENGE BC PRN (11:34)
--- NOTE | 2022-06-17 13:56 | NUR ---
CONSERVATORSHIP PROCESS, PLACEMENT 06/20/2022 is the estimate for a temporary conservatorship to be in place, per phone call to [facility] Public Guardian Magaly Brown [phone]. Ms. Brown has known Mr. Matos for many years, has assisted with multiple placements, and will be in touch [facility]. Provided [facility] main number [phone] to facilitate contact.
[2022-06-17] MEDS: haloperidol 5mg tablet PO PRN (14:55)
[2022-06-17] MEDS ORDERED: quetiapine 100mg tablet PO ONE (14:55)
--- NOTE | 2022-06-17 17:03 | NUR ---
NURSING PROGRESS NOTE Problem: Per 5150 pt. is here for SA by OD on street drugs after command hallucinations telling him to do so. Pt. states that he took "Fentanyl, black china, meth, 8 ball" in suicide attempt. Pt. states he feels hopeless. Pt. is also delusional, stating, "they won't give me my billion dollars". Pt. states, "I tried killing myself because Im a free michelle. They dont love me but I love them. Yes I do." Interventions: Maintained a safe and supportive environment, ensured contract for safety, provided clear and simple instructions, attempted to orient to reality, monitored behavior and provided intervention as needed, provided active listening and positive encouragement, encouraged independent performance of ADLs, and maintained Q 15min safety checks. Response: Patient was up at approximately 0630 ambulating in the hallway waiting for breakfast. Requested hot chocolate. Ambulating frequently in the hallway with eyes squinted and definite grimace on face at all times. Patient made a phone call to his mom this morning and stated I am not going to call her ever again. All she wants is money. She is all about poverty. She owes me over $600, and she cant ever say Thank you or pay me back and Im really tired of it. Patient given Klonopin for anxiety with some relief. Patient continued to walk to the hallways, watched some TV. Patient received Haldol and Ativan at 1200 secondary to increasing anxiety per Dr. Blanchard. At approximately 1455, patient was ambulating in the wagner and started yelling I am sick of this fing place. There is nothing to do here. I am bored and tired and its been 5 days and I am not better on my medications. Dr. Blanchard was located nearby as well as Miranda, and this Pneumatic Systems Operator who asked the patient to come into his room so that we can give him an update on his current status as well as discuss his part in improving as well as being patient with the Process. Miranda stated to the patient that Social Workers Magaly and another person in [place] have received his paperwork, and expect to be able to send referrals out by Thursday or next Thursday, to get the patient placed near his 12 yo son in [facility]. Patient appeared appreciative knowing this information. This Pneumatic Systems Operator also discussed with the patient, Miranda & Dr. Blanchard present that he needs to understand that some things take time. We have no idea how long the court will take to process this information, but he needs to start meeting [facility] to improve his time here, let us know what he needs, what he would like to do, and we will make every attempt for patio time on a daily basis and find interests that best suit him. Miranda will assist in this planning also. Patient received Seroquel at 1455 and it appeared to calm him down for the rest of the afternoon. Plan: Patients mood continues to be labile and requires medication adjustments in a safe and supportive environment. Pts conservatorship is still going forward. Keep patient informed of daily report on any/all updates on the conserved process so that patient can remain intact on what is being done on his behalf.
[2022-06-17] MEDS: quetiapine 100mg tablet PO SCH (19:03)
[2022-06-17] MEDS: prazosin 1mg capsule PO SCH (19:03)
[2022-06-17] MEDS: traZODone 50mg tablet PO SCH (19:03)
[2022-06-17 20:00] VITALS: BP 117/66
--- NOTE | 2022-06-18 00:46 | NUR ---
NURSING PROGRESS NOTE Problem: Per 5150 pt. is here for SA by OD on street drugs after command hallucinations telling him to do so. Pt. states that he took "Fentanyl, black china, meth, 8 ball" in suicide attempt. Pt. states he feels hopeless. Pt. is also delusional, stating, "they won't give me my billion dollars". Pt. states, "I tried killing myself because Im a free michelle. They dont love me but I love them. Yes I do." Interventions: Maintained a safe and supportive environment, ensured contract for safety, provided clear and simple instructions, attempted to orient to reality, monitored behavior and provided intervention as needed, provided active listening and positive encouragement, encouraged independent performance of ADLs, and maintained Q 15min safety checks. Response: Patient met this nurse in the hallway at shift change. Patient reported feeling anxious. This nurse explained to the patient that it was to soon for any medications at this time but to wait till 1900 and he could take his evening meds earlier. Patient given evening meds. Patient went to lay down in bed. Patient given a sandwich and chips. Patient woke up at 20:00 stating that his anxiety was still bad and he was experiencing a sensation in his body like electricity at times. This nurse was able to calmly talk to the patient and give the patient PRN Klonopin 2mg for anxiety. Patient was able to go back to his room and lay down. The patient was able to fall asleep shortly after. Plan: Patients mood continues to be labile and requires medication adjustments in a safe and supportive environment. Pts conservatorship is still going forward. Keep patient informed of daily report on any/all updates on the conserved process so that patient can remain intact on what is being done on his behalf.
[2022-06-18 08:00] VITALS: BP 90/62
[2022-06-18] MEDS: QUEtiapine 25mg tablet PO SCH ×3 (08:12→20:54)
[2022-06-18] MEDS: divalproex 250mg tablet, delayed-release PO SCH ×2 (08:12→20:56)
[2022-06-18] MEDS: haloperidol 5mg tablet PO SCH ×4 (08:12→20:55)
[2022-06-18] MEDS: LORazepam 1 MG tablet PO SCH ×4 (08:12→20:56)
[2022-06-18] MEDS: docusate sod 100mg capsule PO SCH (08:13)
[2022-06-18] MEDS: nicotine 21mg patch - 24 hr TD SCH (08:13)
[2022-06-18] MEDS: benztropine 1mg tablet PO SCH ×2 (08:13→20:55)
[2022-06-18] MEDS: ibuprofen tablet 400 MG TABLET PO SCH ×3 (08:14→16:12)
[2022-06-18] MEDS: clonazePAM 1mg tablet PO PRN (16:54)
--- NOTE | 2022-06-18 17:12 | NUR ---
Nursing Progress Note: Christophe Problem : Per 5150 pt. is here for SA by OD on street drugs after command hallucinations telling him to do so. Pt. states that he took "Fentanyl, black china, meth, 8 ball" in suicide attempt. Pt. states he feels hopeless. Pt. is also delusional, stating, "they won't give me my billion dollars". Pt. states, "I tried killing myself because Im a free michelle. They dont love me but I love them. Yes I do." Interventions : Maintained a safe and supportive environment, ensured contract for safety, provided clear and simple instructions, attempted to orient to reality, monitored behavior and provided intervention as needed, provided active listening and positive encouragement, encouraged independent performance of ADLs, and maintained Q 15min safety checks. Response : Received pt. awake pacing near his door. Pt. approached feature writer and requested his meds early. He denies SI, HI, A/VH he was receptive to taking his medications. Pt. appears to have a slow gait, but has had no outburst of aggressive behaviors presented. Pt. approached later mid-day c/o needing some medication for anxiety, it was a routine med time and that was sufficient in aiding his anxiety. Pt. has attended all meals in the main dining room, he doesnt engage other cohorts. Pt. was given PRN Klonopin d/t s/sx of agitation he was fixating on gaining weight because of medications, and I just want to get out of here Pt. has good hygiene and is wearing unit scrubs. Plan : Per Dr. Yeboah, pt. continues to require a safe and supportive environment. Conservatorship is recommended.
[2022-06-18 19:00] VITALS: BP 100/64
[2022-06-18] MEDS: prazosin 1mg capsule PO SCH (20:54)
[2022-06-18] MEDS: traZODone 50mg tablet PO SCH (20:55)
[2022-06-18] MEDS: quetiapine 100mg tablet PO SCH (20:56)
--- NOTE | 2022-06-19 05:15 | NUR ---
Nursing Progress Note: Christophe Problem : Per 5150 pt. is here for SA by OD on street drugs after command hallucinations telling him to do so. Pt. states that he took "Fentanyl, black china, meth, 8 ball" in suicide attempt. Pt. states he feels hopeless. Pt. is also delusional, stating, "they won't give me my billion dollars". Pt. states, "I tried killing myself because Im a free michelle. They dont love me but I love them. Yes I do." Interventions : Maintained a safe and supportive environment, ensured contract for safety, provided clear and simple instructions, attempted to orient to reality, monitored behavior and provided intervention as needed, provided active listening and positive encouragement, encouraged independent performance of ADLs, and maintained Q 15min safety checks. Response : Received pt. awake pacing unit socializing with other patients. Patient was later found sitting in community room watching tv. Patient asked about changes to his medications and about his length of stay. Patient participated in snack and went to bed. Nurse woke up patient to give night medications which patient took without difficulty and returned to bed. Plan : Per Dr. Yeboah, pt. continues to require a safe and supportive environment. Conservatorship is recommended.
[2022-06-19] MEDS: docusate sod 100mg capsule PO SCH (07:20)
[2022-06-19] MEDS: ibuprofen tablet 400 MG TABLET PO SCH ×3 (07:20→16:44)
[2022-06-19] MEDS: divalproex 250mg tablet, delayed-release PO SCH ×2 (07:21→20:05)
[2022-06-19] MEDS: LORazepam 1 MG tablet PO SCH ×4 (07:21→20:04)
[2022-06-19] MEDS: QUEtiapine 25mg tablet PO SCH ×3 (07:21→20:04)
[2022-06-19] MEDS: benztropine 1mg tablet PO SCH ×2 (07:21→20:03)
[2022-06-19] MEDS: haloperidol 5mg tablet PO SCH ×4 (07:21→20:06)
[2022-06-19] MEDS: nicotine 21mg patch - 24 hr TD SCH (07:22)
[2022-06-19 08:00] VITALS: BP 120/70
[2022-06-19] MEDS: acetaminophen 325mg tablet PO PRN ×2 (11:38→19:09)
[2022-06-19] MEDS: clonazePAM 1mg tablet PO PRN ×2 (11:44→18:17)
[2022-06-19] MEDS: NICOTINE POLACRILEX 2 MG LOZENGE BC PRN (12:37)
--- NOTE | 2022-06-19 16:43 | NUR ---
Nursing Progress Note: Christophe Problem : Per 5150 pt. is here for SA by OD on street drugs after command hallucinations telling him to do so. Pt. states that he took "Fentanyl, black china, meth, 8 ball" in suicide attempt. Pt. states he feels hopeless. Pt. is also delusional, stating, "they won't give me my billion dollars". Pt. states, "I tried killing myself because Im a free michelle. They dont love me but I love them. Yes I do." Interventions : Maintained a safe and supportive environment, ensured contract for safety, provided clear and simple instructions, attempted to orient to reality, monitored behavior and provided intervention as needed, provided active listening and positive encouragement, encouraged independent performance of ADLs, and maintained Q 15min safety checks. Response : Received pt. asleep, he woke to attend breakfast. He was calm during assessment and denies SI, HI, A/VH. Pt. approached typewriter mechanic later in the morning c/o feeling anxious and immediately began to reiterate his feelings to DC and presents as irritable while discussing his feelings of unjustly being held; PRN Klonopin given. Pt. returned to his room and calmly discussed his plan to maintain his feelings. Pt. has a flat affect, his hygiene is fair and is wearing unit scrubs. Pt. ate all his meals in the main dining room with cohorts, and was observed socializing with cohorts at times. His mood was down casted throughout the rest of shift, and did not present as hostile. Pt. c/o Lt. foot pain and received PRN Tylenol and a nicotine lozenge was requested as well. Pt. weekly weight was 120.0kg Plan : Per Dr. Yeboah, pt. continues to require a safe and supportive environment. Conservatorship is recommended.
[2022-06-19 19:48] VITALS: BP 101/55
[2022-06-19] MEDS: traZODone 50mg tablet PO SCH (20:03)
[2022-06-19] MEDS: quetiapine 100mg tablet PO SCH (20:04)
[2022-06-19] MEDS: prazosin 1mg capsule PO SCH (20:06)
--- NOTE | 2022-06-20 05:21 | NUR ---
Nursing Progress Note: Christophe Problem : Per 5150 pt. is here for SA by OD on street drugs after command hallucinations telling him to do so. Pt. states that he took "Fentanyl, black china, meth, 8 ball" in suicide attempt. Pt. states he feels hopeless. Pt. is also delusional, stating, "they won't give me my billion dollars". Pt. states, "I tried killing myself because Im a free michelle. They dont love me but I love them. Yes I do." Interventions : Maintained a safe and supportive environment, ensured contract for safety, provided clear and simple instructions, attempted to orient to reality, monitored behavior and provided intervention as needed, provided active listening and positive encouragement, encouraged independent performance of ADLs, and maintained Q 15min safety checks. Response : Patient was observed sleeping at Change of shift. Patient requested prn Tylenol for headache and returned to bed. Patient was given Tylenol and chicken broth. Patient stayed in bed until snack time. Patient complained about ho much weight he has gained since being here. Patient ate snack and went back to room. Patient took all night medications without issue and went to bed. Plan : Per Dr. Yeboah, pt. continues to require a safe and supportive environment. Conservatorship is recommended.
[2022-06-20] MEDS: divalproex 250mg tablet, delayed-release PO SCH ×2 (07:46→20:03)
[2022-06-20] MEDS: ibuprofen tablet 400 MG TABLET PO SCH ×3 (07:47→16:10)
[2022-06-20] MEDS: LORazepam 1 MG tablet PO SCH ×4 (07:47→20:03)
[2022-06-20] MEDS: haloperidol 5mg tablet PO SCH ×4 (07:47→20:04)
[2022-06-20] MEDS: benztropine 1mg tablet PO SCH ×2 (07:47→20:04)
[2022-06-20] MEDS: nicotine 21mg patch - 24 hr TD SCH (07:47)
[2022-06-20] MEDS: docusate sod 100mg capsule PO SCH (07:47)
[2022-06-20] MEDS: QUEtiapine 25mg tablet PO SCH ×3 (07:55→20:03)
[2022-06-20 08:01] VITALS: BP 117/72
[2022-06-20] MEDS: acetaminophen 325mg tablet PO PRN (16:11)
--- NOTE | 2022-06-20 16:17 | NUR ---
Nursing Progress Note: Problem : Per 5150 pt. is here for SA by OD on street drugs after command hallucinations telling him to do so. Pt. states that he took "Fentanyl, black china, meth, 8 ball" in suicide attempt. Pt. states he feels hopeless. Pt. is also delusional, stating, "they won't give me my billion dollars". Pt. states, "I tried killing myself because Im a free michelle. They dont love me but I love them. Yes I do." Interventions : Maintained a safe and supportive environment, ensured contract for safety, provided clear and simple instructions, attempted to orient to reality, monitored behavior and provided intervention as needed, provided active listening and positive encouragement, encouraged independent performance of ADLs, and maintained Q 15min safety checks. Response: Patient awoke shortly after shift change. Patient has been anxious for most of the day because he called his Conservator, Sri, and she evidently informed him that he may go to [facility]. Patient does not want to go there and reports bad experiences there. Patient spent time pacing the hallways and talking to different staff of his dilemma of going to [place]. Patient complains of left ankle and hip pain and was provided with routine Motrin, as well as prn Tylenol. Patient states that he is taking too much Depakote, and it needs to be reduced, but reinforced that he has been calm and cooperative with it. Patient lying down in bed at this time. Plan : Per Dr. Yeboah, pt. continues to require a safe and supportive environment. Patient is conserved and is awaiting placement.
[2022-06-20] MEDS: NICOTINE POLACRILEX 2 MG LOZENGE BC PRN (18:53)
[2022-06-20 19:00] VITALS: BP 120/77
[2022-06-20] MEDS: quetiapine 100mg tablet PO SCH (20:03)
[2022-06-20] MEDS: prazosin 1mg capsule PO SCH (20:04)
[2022-06-20] MEDS: traZODone 50mg tablet PO SCH (20:04)
--- NOTE | 2022-06-21 04:01 | NUR ---
Nursing Progress Note Problem: Per 5150 pt. is here for SA by OD on street drugs after command hallucinations telling him to do so. Pt. states that he took "Fentanyl, black china, meth, 8 ball" in suicide attempt. Pt. states he feels hopeless. Pt. is also delusional, stating, "they won't give me my billion dollars". Pt. states, "I tried killing myself because Im a free michelle. They dont love me but I love them. Yes I do." Interventions: Maintained a safe and supportive environment, ensured contract for safety, provided clear and simple instructions, attempted to orient to reality, monitored behavior and provided intervention as needed, provided active listening and positive encouragement, encouraged independent performance of ADLs, and maintained Q 15min safety checks. Response: Patient apologized for behavior today, and told RN that he would be better tomorrow, and not whine about [place]. Patient settled in for the night after eating dinner and taking his medications and slept through the night. Patient awoke shortly after shift change. Patient has been anxious for most of the day because he called his Conservator, Sri, and she evidently informed him that he may go to [facility]. Patient does not want to go there and reports bad experiences there. Patient spent time pacing the hallways and talking to different staff of his dilemma of going to [place]. Patient complains of left ankle and hip pain and was provided with routine Motrin, as well as prn Tylenol. Patient states that he is taking too much Depakote, and it needs to be reduced, but reinforced that he has been calm and cooperative with it. Patient lying down in bed at this time. Plan: Per Dr. Yeboah, pt. continues to require a safe and supportive environment. Patient is conserved and is awaiting placement.
[2022-06-21] MEDS: QUEtiapine 25mg tablet PO SCH ×3 (08:18→20:19)
[2022-06-21] MEDS: haloperidol 5mg tablet PO SCH ×4 (08:18→20:19)
[2022-06-21] MEDS: LORazepam 1 MG tablet PO SCH ×4 (08:18→20:19)
[2022-06-21] MEDS: ibuprofen tablet 400 MG TABLET PO SCH ×3 (08:18→16:32)
[2022-06-21] MEDS: nicotine 21mg patch - 24 hr TD SCH (08:18)
[2022-06-21] MEDS: docusate sod 100mg capsule PO SCH (08:18)
[2022-06-21] MEDS: benztropine 1mg tablet PO SCH ×2 (08:18→20:20)
[2022-06-21] MEDS: divalproex 250mg tablet, delayed-release PO SCH ×2 (08:19→20:20)
[2022-06-21] MEDS: acetaminophen 325mg tablet PO PRN ×2 (08:55→14:47)
[2022-06-21 09:00] VITALS: BP 108/62
[2022-06-21] MEDS: NICOTINE POLACRILEX 2 MG LOZENGE BC PRN (13:29)
[2022-06-21] MEDS: magnesium hydroxide 30ml (MOM) UD suspension PO PRN (15:52)
--- NOTE | 2022-06-21 16:53 | NUR ---
Nursing Progress Note Problem: Per 5150 pt. is here for SA by OD on street drugs after command hallucinations telling him to do so. Pt. states that he took "Fentanyl, black china, meth, 8 ball" in suicide attempt. Pt. states he feels hopeless. Pt. is also delusional, stating, "they won't give me my billion dollars". Pt. states, "I tried killing myself because Im a free michelle. They dont love me but I love them. Yes I do." Interventions: Maintained a safe and supportive environment, ensured contract for safety, provided clear and simple instructions, attempted to orient to reality, monitored behavior and provided intervention as needed, provided active listening and positive encouragement, encouraged independent performance of ADLs, and maintained Q 15min safety checks. Response: Patient is resting quietly in bed at the start of the shift. Cooperative with medications and assessment. Perseverates on his discharge plan. Patient complains of BLE pain related to pacing the halls. Continues on routine Motrin. PRN Tylenol is helpful for breakthrough pain relief. Patient paces the unit wearing headphones. Denies any mental health symptoms at this time. Does not appear to be responding to internal stimuli. Plan: Per Dr. Yeboah, pt. continues to require a safe and supportive environment. Patient is conserved and is awaiting placement.
[2022-06-21] MEDS: clonazePAM 1mg tablet PO PRN (18:18)
[2022-06-21 19:00] VITALS: BP 113/70
[2022-06-21] MEDS: traZODone 50mg tablet PO SCH (20:19)
[2022-06-21] MEDS: quetiapine 100mg tablet PO SCH (20:19)
[2022-06-21] MEDS: prazosin 1mg capsule PO SCH (20:19)
--- NOTE | 2022-06-22 00:26 | NUR ---
Nursing Progress Note Problem: Per 5150 pt. is here for SA by OD on street drugs after command hallucinations telling him to do so. Pt. states that he took "Fentanyl, black china, meth, 8 ball" in suicide attempt. Pt. states he feels hopeless. Pt. is also delusional, stating, "they won't give me my billion dollars". Pt. states, "I tried killing myself because Im a free michelle. They dont love me but I love them. Yes I do." Interventions: Maintained a safe and supportive environment, ensured contract for safety, provided clear and simple instructions, attempted to orient to reality, monitored behavior and provided intervention as needed, provided active listening and positive encouragement, encouraged independent performance of ADLs, and maintained Q 15min safety checks. Response: Patient is awake in his room at the start of the shift. Cooperative with assessment. Complains of anxiety stating, Im really anxious. I feel like Im going to have a panic attack or something. PRN Klonopin is given and patient takes a nap through the evening. Takes medication then goes to sleep. Plan: Per Dr. Yeboah, pt. continues to require a safe and supportive environment. Patient is conserved and is awaiting placement.
[2022-06-22] MEDS: nicotine 21mg patch - 24 hr TD SCH (07:46)
[2022-06-22] MEDS: divalproex 250mg tablet, delayed-release PO SCH ×2 (07:47→20:45)
[2022-06-22] MEDS: QUEtiapine 25mg tablet PO SCH ×3 (07:47→20:44)
[2022-06-22] MEDS: haloperidol 5mg tablet PO SCH ×4 (07:47→20:45)
[2022-06-22] MEDS: LORazepam 1 MG tablet PO SCH ×4 (07:47→20:45)
[2022-06-22] MEDS: ibuprofen tablet 400 MG TABLET PO SCH ×3 (07:47→17:12)
[2022-06-22] MEDS: benztropine 1mg tablet PO SCH ×2 (07:47→20:45)
[2022-06-22] MEDS: docusate sod 100mg capsule PO SCH (07:47)
[2022-06-22 08:00] VITALS: BP 100/68
[2022-06-22] MEDS: acetaminophen 325mg tablet PO PRN ×2 (08:54→14:20)
[2022-06-22] MEDS: traMADol 50MG tablet PO PRN (14:52)
[2022-06-22] MEDS: clonazePAM 1mg tablet PO PRN ×2 (15:26→15:27)
[2022-06-22] MEDS: haloperidol 5mg tablet PO PRN (15:41)
--- NOTE | 2022-06-22 16:34 | NUR ---
Nursing Progress Note Problem: Per 5150 pt. is here for SA by OD on street drugs after command hallucinations telling him to do so. Pt. states that he took "Fentanyl, black china, meth, 8 ball" in suicide attempt. Pt. states he feels hopeless. Pt. is also delusional, stating, "they won't give me my billion dollars". Pt. states, "I tried killing myself because Im a free michelle. They dont love me but I love them. Yes I do." Interventions: Maintained a safe and supportive environment, ensured contract for safety, provided clear and simple instructions, attempted to orient to reality, monitored behavior and provided intervention as needed, provided active listening and positive encouragement, encouraged independent performance of ADLs, and maintained Q 15min safety checks. Response: Patient woke up early this morning. He was in a good mood, and remained so until mid-afternoon. He starts perseverating on why hes still here and gets angry. Patient sees other people discharging, and wonders, Why are they getting out before me? He also c/o leg pain from too much walking. Instead of less walking, he wants more pain medicine. When pointed out, he just gets more angry. Patient is resting quietly in bed at the start of the shift. Cooperative with medications and assessment. Perseverates on his discharge plan. Patient complains of BLE pain related to pacing the halls. Continues on routine Motrin. PRN Tylenol is helpful for breakthrough pain relief. Patient paces the unit wearing headphones. Denies any mental health symptoms at this time. Does not appear to be responding to internal stimuli. Plan: Per Dr. Yeboah, pt. continues to require a safe and supportive environment. Patient is conserved and is awaiting placement.
[2022-06-22 19:34] VITALS: BP 141/87
[2022-06-22] MEDS: quetiapine 100mg tablet PO SCH (20:44)
[2022-06-22] MEDS: traZODone 50mg tablet PO SCH (20:44)
[2022-06-22] MEDS: prazosin 1mg capsule PO SCH (20:44)
--- NOTE | 2022-06-23 05:17 | NUR ---
Nursing Progress Note Problem: Per 5150 pt. is here for SA by OD on street drugs after command hallucinations telling him to do so. Pt. states that he took "Fentanyl, black china, meth, 8 ball" in suicide attempt. Pt. states he feels hopeless. Pt. is also delusional, stating, "they won't give me my billion dollars". Pt. states, "I tried killing myself because Im a free michelle. They dont love me but I love them. Yes I do." Interventions: Maintained a safe and supportive environment, ensured contract for safety, provided clear and simple instructions, attempted to orient to reality, monitored behavior and provided intervention as needed, provided active listening and positive encouragement, encouraged independent performance of ADLs, and maintained Q 15min safety checks. Response: Patient is pleasant and cooperative with care; compliant with medication. He reported that he threw away his Nicotine patch. He denies SI, HI, A/VH this shift; no apparent delusions expressed. Patient appeared happy; social with peers and singing along to the music in the headset. He participated in HS snack prior to bed; observed sleeping and does not appear to be having difficulty. Plan: Per Dr. Yeboah, pt. continues to require a safe and supportive environment. Patient is conserved and is awaiting placement.
[2022-06-23] MEDS: acetaminophen 325mg tablet PO PRN (06:23)
[2022-06-23] MEDS: benztropine 1mg tablet PO SCH ×2 (07:19→20:37)
[2022-06-23] MEDS: QUEtiapine 25mg tablet PO SCH ×3 (07:19→20:37)
[2022-06-23] MEDS: haloperidol 5mg tablet PO SCH ×4 (07:19→20:37)
[2022-06-23] MEDS: LORazepam 1 MG tablet PO SCH ×4 (07:19→20:37)
[2022-06-23] MEDS: divalproex 250mg tablet, delayed-release PO SCH ×2 (07:20→20:37)
[2022-06-23] MEDS: nicotine 21mg patch - 24 hr TD SCH (07:20)
[2022-06-23] MEDS: docusate sod 100mg capsule PO SCH (07:23)
[2022-06-23 07:38] VITALS: BP 138/76
[2022-06-23] MEDS: ibuprofen tablet 400 MG TABLET PO SCH ×3 (08:03→17:46)
[2022-06-23] MEDS: traMADol 50MG tablet PO PRN (10:10)
[2022-06-23] MEDS: clonazePAM 1mg tablet PO PRN ×2 (10:34→18:51)
[2022-06-23] MEDS: NICOTINE POLACRILEX 2 MG LOZENGE BC PRN (10:35)
--- NOTE | 2022-06-23 15:42 | NUR ---
PRESSURE ULCER EDUCATION: DEFINITION: A pressure ulcer is an area of skin that breaks down when you stay in one position too long. The constant pressure against the skin reduces the blood flow to that area and the affected tissue dies. CAUSES: "Being bedridden or in a wheelchair "Fragile skin "Having a chronic condition, such as diabetes or vascular disease "Inability to move certain parts of your body without assistance "Older age "Incontinence of urine or stool SYMPTOMS: "A reddened area that DOES NOT turn white when pressed on - this can be the beginning of a pressure ulcer "A blister, deep sore or a crater - these can be advanced pressure ulcers FIRST AID: "Relieve the pressure on this area "Keep the area clean and dry "Call your primary doctor if you see any of the above symptoms "DO NOT massage the area "DO NOT use a donut shaped or ring shaped pillow- these actually interfere with the blood flow and cause complications PREVENTION: "Check for pressure ulcers everyday "Change position at least every two hours to relieve pressure "Use items that help relieve pressure- pillows, sheepskin, foam padding, and powders. "Keep skin clean and dry "Eat healthy well balanced meals "Exercise daily IF YOU SEE ANY OF THESE SYMPTOMS WHILE IN THE HOSPITAL - TELL YOUR NURSE IMMEDIATELY. IF YOU SEE ANY OF THESE SYMPTOMS WHILE AT HOME OR HAVE ANY QUESTIONS OR CONCERNS ABOUT PRESSURE ULCERS - CALL YOUR PRIMARY DOCTOR IMMEDIATELY. Addendum: 06/23/22 at 1542 by Modesta Rodriguez RN Amended: Links added.
--- NOTE | 2022-06-23 16:28 | NUR ---
NURSING PROGRESS NOTE: Problem: Per 5150 pt. is here for SA by OD on street drugs after command hallucinations telling him to do so. Pt. states that he took "Fentanyl, black china, meth, 8 ball" in suicide attempt. Pt. states he feels hopeless. Pt. is also delusional, stating, "they won't give me my billion dollars". Pt. states, "I tried killing myself because Im a free michelle. They dont love me but I love them. Yes I do." Interventions: Maintained a safe and supportive environment, provided clear and simple instructions, attempted to orient to reality, monitored behavior and provided intervention as needed, provided active listening and positive encouragement, encouraged independent performance of ADLs, and maintained Q 15min safety checks. Response: Received patient awake pacing the wagner at shift change. Pt asked creative writer when can I get my medication? Pt presented slightly anxious, but was cooperative and compliant. Pt paced the wagner throughout the morning. Pt continues to fixate on weight gain. Pt was overheard saying I need to lose weight. Pt declined his morning snack. Pt is pretty consistent with pacing the wagner. Pt also c/o bilateral leg and feet pain. Wound consult was placed as bilateral plantar side of foot is dry, cracked and one slightly open area. Pts pain is intermittently being controlled with PRN Tylenol, Tramadol and scheduled Motrin. Denture Laboratory Technician suggested to pt sit for a while and elevate feet pt states I cant sit, it drives me crazy, besides moving around helps me with my anxiety. Pt came to staff and verbalized he was feeling anxious. Not at anyone, its hard to explain. Pt was offered his PRN Klonopin. Pt became tearful and said I dont like being bipolar. After taking his medication pt said Im not going to quit, God doesnt like quitters. Denture Laboratory Technician found pt in another tearful episode, upon further questioning pt began talking about his bipolar was inherited. Pt became emotional with tears and said That means my son is going to be bipolar and it is all my fault. Pt had a negative outlook on his mental health. Denture Laboratory Technician sat with patient and let him talk. Denture Laboratory Technician also reinforced that his bipolar wasnt bad and how well he was doing on his medication. Denture Laboratory Technician compared bipolar to diabetes if you dont take your meds for either you get sick. Pt also talked about not wanting to be the of his mother. Pt said I take responsibility for my actions. Pt continues to be tangential at times, but his insight is improving. Pt is learning to calm himself and recognize triggers and verbalize them. Pt napped in the afternoon. Wound care assessed and placed orders. Plan: Patients continues to be labile, however moods are improving with medication compliance. Pt continues to require a safe and supportive environment. Pts conservatorship is still going forward.
[2022-06-23 19:33] VITALS: BP 101/57
[2022-06-23 20:25] VITALS: BP 137/62
[2022-06-23] MEDS: prazosin 1mg capsule PO SCH (20:36)
[2022-06-23] MEDS: quetiapine 100mg tablet PO SCH (20:37)
[2022-06-23] MEDS: traZODone 50mg tablet PO SCH (20:37)
--- NOTE | 2022-06-24 05:05 | NUR ---
Nursing Progress Note Problem: Per 5150 pt. is here for SA by OD on street drugs after command hallucinations telling him to do so. Pt. states that he took "Fentanyl, black china, meth, 8 ball" in suicide attempt. Pt. states he feels hopeless. Pt. is also delusional, stating, "they won't give me my billion dollars". Pt. states, "I tried killing myself because Im a free michelle. They dont love me but I love them. Yes I do." Interventions: Maintained a safe and supportive environment, ensured contract for safety, provided clear and simple instructions, attempted to orient to reality, monitored behavior and provided intervention as needed, provided active listening and positive encouragement, encouraged independent performance of ADLs, and maintained Q 15min safety checks. Response: Patient is pleasant and cooperative with care; compliant with medication. PRN Clonazepam provided per patient request for increased anxiety. He reported he removed his Nicotine patch. Patient denies SI, HI, A/VH; no apparent delusions expressed this shift. He was briefly social and pacing the unit but later was isolative; did not participate in HS snack. Observed sleeping and does not appear to be having difficulty. Plan: Per Dr. Yeboah, pt. continues to require a safe and supportive environment. Patient is conserved and is awaiting placement.
[2022-06-24 07:45] VITALS: BP 147/73
[2022-06-24] MEDS: QUEtiapine 25mg tablet PO SCH ×3 (07:47→20:49)
[2022-06-24] MEDS: LORazepam 1 MG tablet PO SCH ×4 (07:47→20:50)
[2022-06-24] MEDS: divalproex 250mg tablet, delayed-release PO SCH ×2 (07:48→20:50)
[2022-06-24] MEDS: nicotine 21mg patch - 24 hr TD SCH (07:48)
[2022-06-24] MEDS: ibuprofen tablet 400 MG TABLET PO SCH ×3 (07:48→17:46)
[2022-06-24] MEDS: benztropine 1mg tablet PO SCH ×2 (07:48→20:49)
[2022-06-24] MEDS: haloperidol 5mg tablet PO SCH ×4 (07:48→20:50)
[2022-06-24] MEDS: docusate sod 100mg capsule PO SCH (07:53)
[2022-06-24] MEDS: clonazePAM 1mg tablet PO PRN (13:56)
--- NOTE | 2022-06-24 16:14 | NUR ---
CONSERVATORSHIP PROCESS, CONTACT UPDATE 07/10/22 back from vacation, [facility] Public Guardian Magaly Brown. [place] Public Guardian, Tiffanie Chase can be reached at [phone].
--- NOTE | 2022-06-24 17:12 | NUR ---
NURSING PROGRESS NOTE: Problem: Per 5150 pt. is here for SA by OD on street drugs after command hallucinations telling him to do so. Pt. states that he took "Fentanyl, black china, meth, 8 ball" in suicide attempt. Pt. states he feels hopeless. Pt. is also delusional, stating, "they won't give me my billion dollars". Pt. states, "I tried killing myself because Im a free michelle. They dont love me but I love them. Yes I do." Interventions: Maintained a safe and supportive environment, provided foot care per wound care orders, provided clear and simple instructions, attempted to orient to reality, monitored behavior and provided intervention as needed, provided active listening and positive encouragement, encouraged independent performance of ADLs, and maintained Q 15min safety checks. Response: Received patient sleeping at shift change. Pt slept 8.25 hours per sleep assessment. Pt woke prior to breakfast and presented calm. Pt didnt ask for medication, but was compliant when administered. Pt c/o bilateral foot pain. Pt was encouraged to utilize the recumbent bike instead of pacing all day. During one on one assessment pt handed abstract writer his petition for temporary conservatorship papers I was served this yesterday. Pt stated I will go where they send me. Pt later had an outburst where he threw his water pitcher on the ground and hit the wall. Pt was mad about being conserved I am tired of being lied too! My mom needs to get me out of this! Financial Sales Associate listedned to patient, validated his feelings of being mad, but also told him he cant be tossing and hitting things. Pt was given a towel and he cleaned up his room without issue. Pt didnt require PRN at this time. Pt later came to abstract writer and apologized pt stated that was immature of me to do that. Feelings were validated and abstract writer reinforced pt processing his angry before acting out. Pts insight continues to improve. Pt napped a few hours during the afternoon. No more outbursts noted. Foot care was provided per wound care orders. No delusional statement made. PRN Klonopin was utilized at pt's request with effect. Plan: Patients continues to be labile, however moods are improving with medication compliance. Pt continues to require a safe and supportive environment. Pts conservatorship is still going forward. Addendum: 06/24/22 at 1748 by Sri Ye RN PT REMOVED NICOTINE PATCH. DISPOSED OF IN PROPER RECEPTACLE
[2022-06-24 19:37] VITALS: BP 113/76
[2022-06-24] MEDS: traZODone 50mg tablet PO SCH (20:49)
[2022-06-24] MEDS: prazosin 1mg capsule PO SCH (20:49)
[2022-06-24] MEDS: quetiapine 100mg tablet PO SCH (20:49)
--- NOTE | 2022-06-25 02:51 | NUR ---
Nursing Progress Note Problem: Per 5150 pt. is here for SA by OD on street drugs after command hallucinations telling him to do so. Pt. states that he took "Fentanyl, black china, meth, 8 ball" in suicide attempt. Pt. states he feels hopeless. Pt. is also delusional, stating, "they won't give me my billion dollars". Pt. states, "I tried killing myself because Im a free michelle. They dont love me but I love them. Yes I do." Interventions: Maintained a safe and supportive environment, ensured contract for safety, provided clear and simple instructions, attempted to orient to reality, monitored behavior and provided intervention as needed, provided active listening and positive encouragement, encouraged independent performance of ADLs, and maintained Q 15min safety checks. Response: Patient is pleasant and cooperative with care; compliant with medication. Claimed to have removed Nicotine patch prior to med pass. He denies SI, HI, A/VH; no apparent delusions expressed. He appears fatigued and guarded this shift. Patient remained in bed throughout this shift; observed sleeping and does not appear to be having difficulty. Plan: Per Dr. Yeboah, pt. continues to require a safe and supportive environment. Patient is conserved and is awaiting placement.
[2022-06-25] MEDS: QUEtiapine 25mg tablet PO SCH ×3 (07:32→20:38)
[2022-06-25] MEDS: docusate sod 100mg capsule PO SCH (07:33)
[2022-06-25] MEDS: divalproex 250mg tablet, delayed-release PO SCH ×2 (07:33→20:38)
[2022-06-25] MEDS: benztropine 1mg tablet PO SCH ×2 (07:33→20:40)
[2022-06-25] MEDS: LORazepam 1 MG tablet PO SCH ×4 (07:33→20:38)
[2022-06-25] MEDS: haloperidol 5mg tablet PO SCH ×4 (07:33→20:38)
[2022-06-25] MEDS: ibuprofen tablet 400 MG TABLET PO SCH ×3 (07:33→17:20)
--- NOTE | 2022-06-25 07:36 | NUR ---
Reassessment: Pt continues on Vegetarian diet while receiving double protein TID, eating mostly 100% of meals meeting est needs at this time. [facility] 06/23 receiving routine and PRN bowel care No change to recommendations at this time, will continue to monitor. Recommendations: 1) Continue Vegetarian diet per pt request 2) Double protein TID 3) Bowel care PRN 4) Weekly scaled weights Addendum: 06/25/22 at [address] Amended: Links added.
[2022-06-25 07:39] VITALS: BP 110/62
[2022-06-25] MEDS: nicotine 21mg patch - 24 hr TD SCH (07:39)
[2022-06-25 07:56] VITALS: BP 110/62
[2022-06-25] MEDS: NICOTINE POLACRILEX 2 MG LOZENGE BC PRN ×2 (11:53→18:55)
--- NOTE | 2022-06-25 17:38 | NUR ---
NURSING PROGRESS NOTE: Problem: Per 5150 pt. is here for SA by OD on street drugs after command hallucinations telling him to do so. Pt. states that he took "Fentanyl, black china, meth, 8 ball" in suicide attempt. Pt. states he feels hopeless. Pt. is also delusional, stating, "they won't give me my billion dollars". Pt. states, "I tried killing myself because Im a free michelle. They dont love me but I love them. Yes I do." Interventions: Maintained a safe and supportive environment, provided foot care per wound care orders, provided clear and simple instructions, attempted to orient to reality, monitored behavior and provided intervention as needed, provided active listening and positive encouragement, encouraged independent performance of ADLs, and maintained Q 15min safety checks. Response: Received patient sleeping at shift change. Pt slept 8.0 hours per sleep assessment. Pt was more visible on unit today, pacing as is his routine. Pt had no outbursts today and didnt utilize any PRNs. Pt has his moments of tangential conversation r/t his conservatorship and not wanting to be here It has been constructive to validate his feelings, but continue to set boundaries for his behavior. Pt is difficult to understand sometimes as his speech is muffled. Pt denies SI/HI. Pt reports AH are lessoned, but were evil. Foot care was provided per wound care orders. Plan: Patients continues to be labile, however moods are improving with medication compliance. Pt continues to require a safe and supportive environment. Pts conservatorship is still going forward.
[2022-06-25] MEDS: acetaminophen 325mg tablet PO PRN (19:00)
[2022-06-25 19:28] VITALS: BP 138/85
[2022-06-25 20:05] VITALS: BP 120/75
[2022-06-25] MEDS: quetiapine 100mg tablet PO SCH (20:38)
[2022-06-25] MEDS: traZODone 50mg tablet PO SCH (20:39)
[2022-06-25] MEDS: prazosin 1mg capsule PO SCH (20:39)
--- NOTE | 2022-06-26 05:57 | NUR ---
Nursing Progress Note Problem: Per 5150 pt. is here for SA by OD on street drugs after command hallucinations telling him to do so. Pt. states that he took "Fentanyl, black china, meth, 8 ball" in suicide attempt. Pt. states he feels hopeless. Pt. is also delusional, stating, "they won't give me my billion dollars". Pt. states, "I tried killing myself because Im a free michelle. They dont love me but I love them. Yes I do." Interventions: Maintained a safe and supportive environment, ensured contract for safety, provided clear and simple instructions, attempted to orient to reality, monitored behavior and provided intervention as needed, provided active listening and positive encouragement, encouraged independent performance of ADLs, and maintained Q 15min safety checks. Response: Patient is pleasant and cooperative with care; compliant with medication. PRN Tylenol provided for knee pain. Nicotine patch removed. He denies SI, HI, A/VH; no apparent delusions expressed this shift. Patient mostly self isolated; participated in HS snack and retired to bed. Observed sleeping and does not appear to be having difficulty. Plan: Per Dr. Yeboah, pt. continues to require a safe and supportive environment. Patient is conserved and is awaiting placement.
[2022-06-26] MEDS: benztropine 1mg tablet PO SCH ×2 (07:40→20:24)
[2022-06-26] MEDS: QUEtiapine 25mg tablet PO SCH ×3 (07:40→20:23)
[2022-06-26] MEDS: LORazepam 1 MG tablet PO SCH ×4 (07:41→20:24)
[2022-06-26] MEDS: ibuprofen tablet 400 MG TABLET PO SCH ×3 (07:41→16:31)
[2022-06-26] MEDS: docusate sod 100mg capsule PO SCH (07:41)
[2022-06-26] MEDS: haloperidol 5mg tablet PO SCH ×4 (07:41→20:25)
[2022-06-26] MEDS: divalproex 250mg tablet, delayed-release PO SCH ×2 (07:41→20:24)
[2022-06-26] MEDS: nicotine 21mg patch - 24 hr TD SCH (07:42)
[2022-06-26 08:00] VITALS: BP 91/67
[2022-06-26] MEDS: NICOTINE POLACRILEX 2 MG LOZENGE BC PRN (11:23)
[2022-06-26] MEDS: clonazePAM 1mg tablet PO PRN (15:16)
--- NOTE | 2022-06-26 16:50 | NUR ---
Nursing Progress Note: Christophe Problem : Per 5150 pt. is here for SA by OD on street drugs after command hallucinations telling him to do so. Pt. states that he took "Fentanyl, black china, meth, 8 ball" in suicide attempt. Interventions : Maintained a safe and supportive environment, ensured contract for safety, provided clear and simple instructions, attempted to orient to reality, monitored behavior and provided intervention as needed, provided active listening and positive encouragement, encouraged independent performance of ADLs, and maintained Q 15min safety checks. Response : Received pt. asleep, he woke to attend breakfast. He denies SI, HI, A/VH and reports hes ready for placement. Pt. took his medication without hesitancy, and spent most of the shift OOB and walking around the unit or talking on the phone. He has good hygiene and is wearing street clothes. He ate all meals in the dining room and often socializes with cohorts. No c/o anxiety, but pt. presented with increased emotions and was tearful stating I let my Mom and my son down because I did meth, Im never gonna get out of here Delinquency Prevention Officer encouraged pt. to look forward and focus on his sobriety and discussed upcoming steps. PRN Madhuonoviraj requested and was given. As the day went on pt. was on edge with increased signs of agitation, and making several calls to his family and verbalized fighting this case Pt. was able to be re directed and later returned apologetic stating Im sorry about all that He was encouraged to participate in group. Pt. weekly weight was 117.9kg Plan : Per Dr. Yeboah, pt. continues to require a safe and supportive environment. Conservatorship is recommended.
[2022-06-26] MEDS: acetaminophen 325mg tablet PO PRN (19:20)
[2022-06-26] MEDS: prazosin 1mg capsule PO SCH (20:22)
[2022-06-26] MEDS: quetiapine 100mg tablet PO SCH (20:23)
[2022-06-26] MEDS: traZODone 50mg tablet PO SCH (20:24)
[2022-06-26 20:57] VITALS: BP 113/65
--- NOTE | 2022-06-27 04:43 | NUR ---
Nursing Progress Note: Mora Problem : Per 5150 pt. is here for SA by OD on street drugs after command hallucinations telling him to do so. Pt. states that he took "Fentanyl, black china, meth, 8 ball" in suicide attempt. Interventions : Maintained a safe and supportive environment, ensured contract for safety, provided clear and simple instructions, attempted to orient to reality, monitored behavior and provided intervention as needed, provided active listening and positive encouragement, encouraged independent performance of ADLs, and maintained Q 15min safety checks. Response : Patient was found sleeping at change of shift. Patient continued to sleep until getting vitals. Patient began complaining of knee pain and was given prn Tylenol. Patient continued to socialize with others and pace hallway until snack time. Patient participated in snack and expressed his frustration of it taking so long for him to get conserved and to get out of here. Patient took all night medications without issue and returned to bed. Patient had no difficulty sleeping. Plan : Per Dr. Yeboah, pt. continues to require a safe and supportive environment. Conservatorship is recommended.
[2022-06-27] MEDS: divalproex 250mg tablet, delayed-release PO SCH ×2 (07:37→20:15)
[2022-06-27] MEDS: QUEtiapine 25mg tablet PO SCH ×3 (07:37→20:16)
[2022-06-27] MEDS: docusate sod 100mg capsule PO SCH (07:38)
[2022-06-27] MEDS: haloperidol 5mg tablet PO SCH ×4 (07:38→20:16)
[2022-06-27] MEDS: LORazepam 1 MG tablet PO SCH ×4 (07:38→20:16)
[2022-06-27] MEDS: ibuprofen tablet 400 MG TABLET PO SCH ×3 (07:38→18:20)
[2022-06-27] MEDS: benztropine 1mg tablet PO SCH ×2 (07:38→20:17)
[2022-06-27] MEDS: nicotine 21mg patch - 24 hr TD SCH (07:41)
[2022-06-27 08:00] VITALS: BP 123/72
[2022-06-27 08:07] LABS: BASOPHILS # (AUTO) 0.1 X10'3 (0-0.2); BASOPHILS % (AUTO) 1.4 % (0-1); EOSINOPHILS # (AUTO) 0.5 X10'3 (0-0.9); EOSINOPHILS % (AUTO) 10.7 % (0-6); HEMATOCRIT 41.4 % (42.0-52.0); LYMPHOCYTES # (AUTO) 1.2 X10'3 (1.1-4.8); LYMPHOCYTES % (AUTO) 26.5 % (21-51); MEAN CORPUSCULAR HEMOGLOBIN 30.6 PG (27.0-31.0); MEAN CORPUSCULAR HGB CONC 33.7 g/dL (33.0-36.5); MEAN CORPUSCULAR VOLUME 90.9 FL (78-98); MEAN PLATELET VOLUME 8.5 FL (7.4-10.4); MONOCYTES # (AUTO) 0.4 X10'3 (0-0.9); MONOCYTES % (AUTO) 9.2 % (2-12); NEUTROPHILS # (AUTO) 2.4 X10'3 (1.8-7.7); NEUTROPHILS % (AUTO) 52.2 % (42-75); PLATELET COUNT 180 X10'3 (140-440); RED BLOOD COUNT 4.55 X10'6 (4.70-6.10); RED CELL DISTRIBUTION WIDTH 13.5 % (11.5-14.5); WHITE BLOOD COUNT 4.5 X10'3 (4.5-11.0)
[2022-06-27 08:39] LABS: ALANINE AMINOTRANSFERASE 24 U/L (12-78); ALBUMIN 3.1 G/DL (3.4-5.0); ALKALINE PHOSPHATASE 71 IU/L (46-116); ANION GAP 8 (8-16); ASPARTATE AMINO TRANSFERASE 15 U/L (10-37); BILIRUBIN,TOTAL 0.3 MG/DL (0.1-1.0); BLOOD UREA NITROGEN 14 MG/DL (7-18); BUN/CREATININE RATIO 17.7 (5.4-32.0); CALCIUM 8.1 MG/DL (8.5-10.1); CHLORIDE 103 MMOL/L (99-107); CREATININE 0.79 MG/DL (0.60-1.10); GLUCOSE 95 MG/DL (70-104); POTASSIUM 4.2 MMOL/L (3.5-5.1); SODIUM 140 MMOL/L (135-145); TOTAL CARBON DIOXIDE 29.4 MMOL/L (24-32); TOTAL PROTEIN 6.1 G/DL (6.4-8.2); eGFR > 90 ML/MIN
[2022-06-27] MEDS: NICOTINE POLACRILEX 2 MG LOZENGE BC PRN (09:14)
[2022-06-27] MEDS: acetaminophen 325mg tablet PO PRN ×2 (09:14→15:49)
--- NOTE | 2022-06-27 09:37 | NUR ---
pt. refused cream
--- NOTE | 2022-06-27 09:39 | NUR ---
pt. refused cream Addendum: 06/27/22 at 0941 by Iveth Jamison RN Amended: Links added.
--- NOTE | 2022-06-27 09:40 | NUR ---
pt. refused needing cream Addendum: 06/27/22 at 0941 by Iveth Jamison RN Amended: Links added.
[2022-06-27 10:50] LABS: VALPROATE < 3.0 UG/ML (50-100)
[2022-06-27] MEDS: clonazePAM 1mg tablet PO PRN (11:45)
--- NOTE | 2022-06-27 16:49 | NUR ---
Nursing Progress Note: Christophe Problem : Per 5150 pt. is here for SA by OD on street drugs after command hallucinations telling him to do so. Pt. states that he took "Fentanyl, black china, meth, 8 ball" in suicide attempt. Interventions : Maintained a safe and supportive environment, ensured contract for safety, provided clear and simple instructions, attempted to orient to reality, monitored behavior and provided intervention as needed, provided active listening and positive encouragement, encouraged independent performance of ADLs, and maintained Q 15min safety checks. Response : Received pt. asleep, he awoke to receive medications and proceeded to breakfast. Pt. took his medications without hesitation and denies SI, HI, A/VH, and reports his plan is to go along with the court Pt. recounted yesterdays events and reports his plan to have a good day. Pt. has been out of his room ambulating in the wagner, he reports Lt. foot pain and received PRN Tylenol, but refused needing the cream. Pt. ate his meals in the dining room and has been observed socializing at times. He is dressed in his clothes from yesterday, and hygiene is fair. Pt. requested PRN Klonopin for anxiety med given with good results. Pt. is calm today and with no outburst. Plan : Per Dr. Yeboah, pt. continues to require a safe and supportive environment. Conservatorship is recommended.
[2022-06-27 19:00] VITALS: BP 121/82
[2022-06-27] MEDS: prazosin 1mg capsule PO SCH (20:15)
[2022-06-27] MEDS: quetiapine 100mg tablet PO SCH (20:16)
[2022-06-27] MEDS: traZODone 50mg tablet PO SCH (20:16)
--- NOTE | 2022-06-28 05:02 | NUR ---
Nursing Progress Note: Christophe Problem : Per 5150 pt. is here for SA by OD on street drugs after command hallucinations telling him to do so. Pt. states that he took "Fentanyl, black china, meth, 8 ball" in suicide attempt. Interventions : Maintained a safe and supportive environment, ensured contract for safety, provided clear and simple instructions, attempted to orient to reality, monitored behavior and provided intervention as needed, provided active listening and positive encouragement, encouraged independent performance of ADLs, and maintained Q 15min safety checks. Response : Patient was received sleeping in bed at change of shift. Patient continued to sleep and self isolate in room until snack time. Patient participated in snack and had taken all night medications without difficulty before returning back to bed. Patient requested no prns this shift. Plan : Per Dr. Yeboah, pt. continues to require a safe and supportive environment. Conservatorship is recommended.
[2022-06-28] MEDS: benztropine 1mg tablet PO SCH ×2 (07:24→20:35)
[2022-06-28] MEDS: LORazepam 1 MG tablet PO SCH ×4 (07:24→20:35)
[2022-06-28] MEDS: haloperidol 5mg tablet PO SCH ×4 (07:25→20:34)
[2022-06-28] MEDS: QUEtiapine 25mg tablet PO SCH ×3 (07:25→20:35)
[2022-06-28] MEDS: docusate sod 100mg capsule PO SCH (07:25)
[2022-06-28] MEDS: ibuprofen tablet 400 MG TABLET PO SCH ×3 (07:25→16:55)
[2022-06-28] MEDS: divalproex 250mg tablet, delayed-release PO SCH ×2 (07:25→20:35)
[2022-06-28] MEDS: nicotine 21mg patch - 24 hr TD SCH (07:28)
[2022-06-28 08:00] VITALS: BP 122/72
[2022-06-28] MEDS: acetaminophen 325mg tablet PO PRN (08:29)
[2022-06-28] MEDS: NICOTINE POLACRILEX 2 MG LOZENGE BC PRN (12:06)
[2022-06-28] MEDS: clonazePAM 1mg tablet PO PRN (13:28)
--- NOTE | 2022-06-28 17:50 | NUR ---
Nursing Progress Note: Problem : Per 5150 pt. is here for SA by OD on street drugs after command hallucinations telling him to do so. Pt. states that he took "Fentanyl, black china, meth, 8 ball" in suicide attempt. Interventions : Maintained a safe and supportive environment, ensured contract for safety, provided clear and simple instructions, attempted to orient to reality, monitored behavior and provided intervention as needed, provided active listening and positive encouragement, encouraged independent performance of ADLs, and maintained Q 15min safety checks. Response : Received Pt in bed sleeping w/o distress. Pt woke and was cooperative with vitals and returned to sleeping. Pt woke again for breakfast and ate well, and took AM meds w/o issue, requesting them early. Pt lethargic and returned to room after pacing halls for a bit. Pt took shower and Nicotine patch fell off, so Pt gave it to this RN and used a nicotine lozenge. Pt became vocal about his frustrations r/t wanting to leave but did not become agitated and was given PRN Klonopin in afternoon. Pt napped in afternoon and woke for dinner and ate well with others. Pt did not have any loud or aggressive outbursts today. Plan : Per Dr. Yeboah, pt. continues to require a safe and supportive environment. Conservatorship is recommended.
[2022-06-28 20:00] VITALS: BP 114/66
[2022-06-28] MEDS: quetiapine 100mg tablet PO SCH (20:35)
[2022-06-28] MEDS: prazosin 1mg capsule PO SCH (20:35)
[2022-06-28] MEDS: traZODone 50mg tablet PO SCH (20:43)
--- NOTE | 2022-06-29 00:21 | NUR ---
Nursing Progress Note: Christophe Problem : Per 5150 pt. is here for SA by OD on street drugs after command hallucinations telling him to do so. Pt. states that he took "Fentanyl, black china, meth, 8 ball" in suicide attempt. Interventions : Maintained a safe and supportive environment, ensured contract for safety, provided clear and simple instructions, attempted to orient to reality, monitored behavior and provided intervention as needed, provided active listening and positive encouragement, encouraged independent performance of ADLs, and maintained Q 15min safety checks. Response : Received pt in bed sleeping. Woke pt up for HS medications and he states he is doing well, no complaints. Observed pt swallow all HS medications. Pt went back to sleep, no complaints or needs at this time, will continue to monitor. Pt did not have any loud or aggressive outbursts this shift. Plan : Per Dr. Yeboah, pt. continues to require a safe and supportive environment. Conservatorship is recommended.
[2022-06-29 07:30] VITALS: BP 107/73
[2022-06-29] MEDS: divalproex 250mg tablet, delayed-release PO SCH ×2 (08:26→19:49)
[2022-06-29] MEDS: ibuprofen tablet 400 MG TABLET PO SCH ×3 (08:26→17:12)
[2022-06-29] MEDS: docusate sod 100mg capsule PO SCH (08:26)
[2022-06-29] MEDS: benztropine 1mg tablet PO SCH ×2 (08:26→19:49)
[2022-06-29] MEDS: LORazepam 1 MG tablet PO SCH ×4 (08:26→19:49)
[2022-06-29] MEDS: haloperidol 5mg tablet PO SCH ×4 (08:26→19:49)
[2022-06-29] MEDS: nicotine 21mg patch - 24 hr TD SCH (08:27)
[2022-06-29] MEDS: QUEtiapine 25mg tablet PO SCH ×3 (08:27→19:48)
[2022-06-29] MEDS: NICOTINE POLACRILEX 2 MG LOZENGE BC PRN (08:36)
[2022-06-29] MEDS: acetaminophen 325mg tablet PO PRN ×2 (09:06→13:41)
[2022-06-29] MEDS: clonazePAM 1mg tablet PO PRN (14:54)
--- NOTE | 2022-06-29 15:19 | NUR ---
NURSING PROGRESS NOTE Problem : Per 5150 pt. is here for SA by OD on street drugs after command hallucinations telling him to do so. Pt. states that he took "Fentanyl, black china, meth, 8 ball" in suicide attempt. Interventions : Maintained a safe and supportive environment, ensured contract for safety, provided clear and simple instructions, monitored behavior and provided intervention as needed, provided active listening and positive encouragement, encouraged independent performance of ADLs, and maintained Q 15min safety checks. Response : Received patient sleeping at shift change. Pt slept 9.25 hours per sleep assessment. Pt wakes and walks halls, which is his pattern. Pt was in a happy mood this morning. Noted a little more talkative with staff and more smiles. Pt reported doing push-ups in his room. Pt states I feel better (small smile). Another time pt said My mind is clearing up, the medicine is working. Being med compliant was reinforced throughout the day .Print Washer asked how he felt before pt responded I felt suicidal, depressed, like the world was ending. The medicine is working. Pt made one delusional statement today. He asked marketing copywriter Are you a free Basil? No. Pt said I am, I am not proud of it. How you become a free Basil the devil picks you. Pt has noticed is slurred speech and was wondering if it would get better. Pt requested OFE Koenig in the afternoon saying "I am stressed out." Pt was talking about having to pay a bill from [employer] "I can't afford that." He also mentioned that his mother wanted him to change conservators and not to sign housing paperwork. Print Washer was unable to get a hold of pt's mom, at his request. Per provider progress note ammonia level and Depakote level will be redrawn in a couple of days. Plan : Patient continues to require a safe and supportive environment, mood continues to improve each day. Conservatorship continues to go forward. Addendum: 06/29/22 at 1548 by Sri Ye RN Wound care provider to bilateral feet per orders. Addendum: 06/29/22 at 1716 by Sri Ye RN Observed pt taking his medication. Sat with him and talked after each administration.
[2022-06-29 19:18] VITALS: BP 128/63
[2022-06-29] MEDS: prazosin 1mg capsule PO SCH (19:49)
[2022-06-29] MEDS: traZODone 50mg tablet PO SCH (19:50)
[2022-06-29] MEDS: quetiapine 100mg tablet PO SCH (19:50)
--- NOTE | 2022-06-30 00:53 | NUR ---
NURSING PROGRESS NOTE Problem : Per 5150 pt. is here for SA by OD on street drugs after command hallucinations telling him to do so. Pt. states that he took "Fentanyl, black china, meth, 8 ball" in suicide attempt. Interventions : Maintained a safe and supportive environment, provided clear and simple instructions, monitored behavior and provided intervention as needed, provided active listening and positive encouragement, encouraged independent performance of ADLs, and maintained Q 15min safety checks. Response : Patient was pacing wagner listening to headphones at shift change. Patient spoke with his mom and appeared to be less anxious after conversation. Pts mother is concerned that pts rights are going to be completely stripped away. She stated she read in the conservator papers about a benefit and told him not to sign anything regarding housing (blog writer not sure what she meant, referred her to .) Pt wanted another copy of papers, one was printed and placed on shelf. Pt was compliant with medication and was observed taking meds without issue. Nicotine patch was removed. No outbursts or PRNs required. No delusional statements. Per PN ammonia level and Depakote level will be redrawn in a couple of days. Plan : Patient continues to require a safe and supportive environment, mood continues to improve each day. Conservatorship continues to go forward.
[2022-06-30] MEDS: nicotine 21mg patch - 24 hr TD SCH (07:21)
[2022-06-30] MEDS: divalproex 250mg tablet, delayed-release PO SCH ×2 (07:22→19:57)
[2022-06-30] MEDS: docusate sod 100mg capsule PO SCH (07:22)
[2022-06-30] MEDS: QUEtiapine 25mg tablet PO SCH ×3 (07:22→19:57)
[2022-06-30] MEDS: LORazepam 1 MG tablet PO SCH ×4 (07:22→19:56)
[2022-06-30] MEDS: haloperidol 5mg tablet PO SCH ×4 (07:22→19:57)
[2022-06-30] MEDS: benztropine 1mg tablet PO SCH ×2 (07:22→19:57)
[2022-06-30] MEDS: ibuprofen tablet 400 MG TABLET PO SCH ×3 (07:23→16:47)
[2022-06-30 08:00] VITALS: BP 121/69
[2022-06-30] MEDS: acetaminophen 325mg tablet PO PRN (08:51)
[2022-06-30] MEDS: clonazePAM 1mg tablet PO PRN (10:13)
[2022-06-30] MEDS ORDERED: LORazepam 1 MG tablet PO ONE (11:20)
[2022-06-30] MEDS ORDERED: haloperidol 5mg tablet PO ONE (11:20)
--- NOTE | 2022-06-30 14:48 | NUR ---
NURSING PROGRESS NOTE Problem : Per 5150 pt. is here for SA by OD on street drugs after command hallucinations telling him to do so. Pt. states that he took "Fentanyl, black china, meth, 8 ball" in suicide attempt. Interventions : Maintained a safe and supportive environment, ensured contract for safety, provided clear and simple instructions, monitored behavior and provided intervention as needed, provided active listening and positive encouragement, encouraged independent performance of ADLs, and maintained Q 15min safety checks. Response : Patient was asleep at change of shift and up soon after. Patient had been speaking to his mom all morning on the phone and she was making patient anxious because of her worry about his conservatorship. Patient believing that his conservator was going to put life insurance on him and then collect the money. Patient kept amping and received Clonazepam 2 mg. During morning break another patient criticized his music. Patient got very angry and was yelling and storming up and down the wagner. He eventually made it to his room. RN gave patient and addition 1 mg Ativan and 5 mg Haldol to the 1 mg Ativan and 5 mg Haldol that was already ordered for noon. Patient took the medication and fell asleep in his bed. An hour later he was up, calm and eating lunch. Patient was polite and in a much better mood as of this writing. Plan : Patient continues to require a safe and supportive environment, mood continues to improve each day. Conservatorship continues to go forward.
--- NOTE | 2022-06-30 15:34 | NUR ---
DISCHARGE PLANNING [facility] granted a temporary conservatorship 06/26/22. Contact is Kal Navas [phone]. Discussed with client. Client responds well to frequent reminders of the status of his process, his conservatorship being temporary, the same as his prior conservatorship (which ended in 2020), etc.
--- NOTE | 2022-06-30 15:48 | NUR ---
Therapeutic Group, Note Client attended 2 p.m. therapeutic group. Group method: group talk regarding healthy communication based on Juan Manuelan method -- no criticism, contempt, defensiveness, stonewalling, but stressing need to keep self and others safe (for example, it's okay not to talk or engage with someone when it's not safe). Acknowledged the uniqueness of this environment, and processing at length may or may not be necessary (chose communication based on setting, culture, need, relationship, etc.) Client stayed for the duration of group time.
[2022-06-30 19:45] VITALS: BP 120/82
[2022-06-30] MEDS: quetiapine 100mg tablet PO SCH (19:56)
[2022-06-30] MEDS: prazosin 1mg capsule PO SCH (19:57)
[2022-06-30] MEDS: traZODone 50mg tablet PO SCH (19:58)
--- NOTE | 2022-07-01 03:34 | NUR ---
NURSING PROGRESS NOTE Problem : Per 5150 pt. is here for SA by OD on street drugs after command hallucinations telling him to do so. Pt. states that he took "Fentanyl, black china, meth, 8 ball" in suicide attempt. Interventions : Maintained a safe and supportive environment, provided clear and simple instructions, monitored behavior and provided intervention as needed, provided active listening and positive encouragement, encouraged independent performance of ADLs, and maintained Q 15min safety checks. Response : Patient is pleasant and cooperative with care; compliant with medication. Denies SI, HI, A/VH; no apparent delusions expressed. Patient reports "had a really great day" and smiling; appeared happy. He is watched TV and participated in HS snack in the community room prior to bed; observed sleeping and does not appear to be having difficulty. Plan : Patient continues to require a safe and supportive environment, mood continues to improve each day. Conservatorship continues to go forward. Addendum: 07/01/22 at 0338 by Chica Dunne RN ENTERED IN ERROR; WRONG PATIENT.
--- NOTE | 2022-07-01 03:39 | NUR ---
NURSING PROGRESS NOTE Problem : Per 5150 pt. is here for SA by OD on street drugs after command hallucinations telling him to do so. Pt. states that he took "Fentanyl, black china, meth, 8 ball" in suicide attempt. Interventions : Maintained a safe and supportive environment, provided clear and simple instructions, monitored behavior and provided intervention as needed, provided active listening and positive encouragement, encouraged independent performance of ADLs, and maintained Q 15min safety checks. Response : Patient is pleasant and cooperative with care; compliant with medication. Nicotine patch removed. He denies SI, HI, A/VH; no apparent delusions but conversations are tangential at times. Patient is mostly isolative to his room but out a little more this shift than previous night. He participated in HS snack in the community room prior to bed; observed sleeping and does not appear to be having difficulty. Plan : Patient continues to require a safe and supportive environment, mood continues to improve each day. Conservatorship continues to go forward.
[2022-07-01 08:00] VITALS: BP 134/69
[2022-07-01] MEDS: divalproex 250mg tablet, delayed-release PO SCH ×2 (08:12→19:48)
[2022-07-01] MEDS: haloperidol 5mg tablet PO SCH ×4 (08:13→19:48)
[2022-07-01] MEDS: QUEtiapine 25mg tablet PO SCH ×3 (08:13→19:49)
[2022-07-01] MEDS: ibuprofen tablet 400 MG TABLET PO SCH ×3 (08:13→17:09)
[2022-07-01] MEDS: LORazepam 1 MG tablet PO SCH ×4 (08:14→19:48)
[2022-07-01] MEDS: benztropine 1mg tablet PO SCH ×2 (08:14→19:49)
[2022-07-01] MEDS: docusate sod 100mg capsule PO SCH (08:14)
[2022-07-01] MEDS: nicotine 21mg patch - 24 hr TD SCH (08:15)
[2022-07-01] MEDS: NICOTINE POLACRILEX 2 MG LOZENGE BC PRN ×3 (08:32→17:09)
[2022-07-01] MEDS: acetaminophen 325mg tablet PO PRN (09:29)
[2022-07-01] MEDS: haloperidol 5mg tablet PO PRN (11:15)
--- NOTE | 2022-07-01 15:45 | NUR ---
PLACEMENT UPDATE Sent placement packet to Kal [facility] Email: [email or web address]. JOEL Casanova
--- NOTE | 2022-07-01 17:00 | NUR ---
NURSING PROGRESS NOTE Problem : Per 5150 pt. is here for SA by OD on street drugs after command hallucinations telling him to do so. Pt. states that he took "Fentanyl, black china, meth, 8 ball" in suicide attempt. Interventions : 1:1 assessment with therapeutic communication and active listening. Medication administration/ education/monitoring. Provided PRN's as needed for agitation. Maintained a safe and supportive environment. Monitored behavior and provided intervention as needed. Maintained Q 15min safety checks. Response: Pt confused this morning regarding his placement and when he is leaving. Pt tearful and angry. Pt able to calm down with PRN's. Pt states, "I'm going to cause my Mom a stroke." Then cried. Pt appears depressed. Plan: Patient continues to require a safe and supportive environment, mood continues to improve each day. Conservatorship continues to go forward.
[2022-07-01 19:35] VITALS: BP 120/70
[2022-07-01] MEDS: traZODone 50mg tablet PO SCH (19:49)
[2022-07-01] MEDS: quetiapine 100mg tablet PO SCH (19:49)
[2022-07-01] MEDS: prazosin 1mg capsule PO SCH (19:50)
--- NOTE | 2022-07-02 05:43 | NUR ---
NURSING PROGRESS NOTE Problem : Per 5150 pt. is here for SA by OD on street drugs after command hallucinations telling him to do so. Pt. states that he took "Fentanyl, black china, meth, 8 ball" in suicide attempt. Interventions : Maintained a safe and supportive environment, provided clear and simple instructions, monitored behavior and provided intervention as needed, provided active listening and positive encouragement, encouraged independent performance of ADLs, and maintained Q 15min safety checks. Response : Patient is pleasant and cooperative with care; compliant with medication. Nicotine patch removed. He denies SI, HI, A/VH; overheard talking a lot about spirituality/hoahaoism with female peer. He expressed some irritability r/t not being able to talk with his mom. Patient participated in HS snack prior to bed; observed sleeping and does not appear to be having difficult. Plan : Patient continues to require a safe and supportive environment, mood continues to improve each day. Conservatorship continues to go forward.
[2022-07-02] MEDS: ibuprofen tablet 400 MG TABLET PO SCH ×3 (07:34→16:58)
[2022-07-02] MEDS: docusate sod 100mg capsule PO SCH (07:34)
[2022-07-02] MEDS: benztropine 1mg tablet PO SCH ×2 (07:34→20:28)
[2022-07-02] MEDS: QUEtiapine 25mg tablet PO SCH ×3 (07:34→20:28)
[2022-07-02] MEDS: divalproex 250mg tablet, delayed-release PO SCH ×2 (07:35→20:28)
[2022-07-02] MEDS: LORazepam 1 MG tablet PO SCH ×4 (07:35→20:29)
[2022-07-02] MEDS: haloperidol 5mg tablet PO SCH ×4 (07:35→20:28)
--- NOTE | 2022-07-02 07:54 | NUR ---
Reassessment: Pt continues on Vegetarian diet while receiving double protein TID, eating mostly 100% of meals meeting est needs at this time. [facility] 06/29 receiving routine bowel care No change to recommendations at this time, will continue to monitor. Recommendations: 1) Continue Vegetarian diet per pt request 2) Double protein TID 3) Bowel care PRN 4) Weekly scaled weights Addendum: 07/02/22 at [address] Amended: Links added.
[2022-07-02 08:00] VITALS: BP 115/71
[2022-07-02] MEDS: acetaminophen 325mg tablet PO PRN ×2 (08:36→13:58)
[2022-07-02] MEDS: nicotine 21mg patch - 24 hr TD SCH (08:37)
[2022-07-02] MEDS: NICOTINE POLACRILEX 2 MG LOZENGE BC PRN ×2 (10:59→17:36)
--- NOTE | 2022-07-02 17:43 | NUR ---
NURSING PROGRESS NOTE Problem : Per 5150 pt. is here for SA by OD on street drugs after command hallucinations telling him to do so. Pt. states that he took "Fentanyl, black china, meth, 8 ball" in suicide attempt. Interventions : 1:1 assessment with therapeutic communication and active listening. Medication administration/ education/monitoring. Provided PRN's as needed for agitation. Maintained a safe and supportive environment. Monitored behavior and provided intervention as needed. Maintained Q 15min safety checks. Response: RN received pt. asleep in bed at start of shift. Pt. awoke for coffee and took all medications. Pt. ate breakfast with peers in community room and went back to sleep. Pt. awoke mid-morning. 1:1 done at bedside, pt. denies all psych symptoms but c/o feeling sedated most of the day due to the medications. Pt. states, I dont know what Im going to do when I go to [place] because they make you go to groups all day and you cant sleep. Pt. reports feeling thankful for his mom and his son. Later in the day pt. c/o of anxiety and RN encouraged pt. to attempt to use mindfulness instead of ask for anxiolytic PRNs. RN did deep breathing with pt. and pt. reports it helped him to calm down. Pt. c/o anxiety throughout the day but did not request and PRN anxiolytics today. Pt. observed listening to headphones and pacing. Pt. observed socializing with peers. Pt. received Tylenol 650mg po x2 for left ankle pain. Plan: Patient continues to require a safe and supportive environment, mood continues to improve each day. Conservatorship continues to go forward.
[2022-07-02] MEDS: clonazePAM 1mg tablet PO PRN (18:41)
[2022-07-02 19:00] VITALS: BP 116/77
[2022-07-02] MEDS: quetiapine 100mg tablet PO SCH (20:28)
[2022-07-02] MEDS: traZODone 50mg tablet PO SCH (20:28)
[2022-07-02] MEDS: prazosin 1mg capsule PO SCH (20:28)
--- NOTE | 2022-07-03 05:22 | NUR ---
NURSING PROGRESS NOTE Problem : Per 5150 pt. is here for SA by OD on street drugs after command hallucinations telling him to do so. Pt. states that he took "Fentanyl, black china, meth, 8 ball" in suicide attempt. Interventions : Maintained a safe and supportive environment, provided clear and simple instructions, monitored behavior and provided intervention as needed, provided active listening and positive encouragement, encouraged independent performance of ADLs, and maintained Q 15min safety checks. Response : Patient is pleasant and cooperative with care; compliant with medication. PRN Clonazepam provided per patient request. He reported he removed his Nicotine patch prior to med pass. Patient denies SI, HI, A/VH; no apparent delusions expressed. He was mostly self isolative but joking and social with junior technical writer. Patient expressed some concern over weight gain this shift. He is observed sleeping and does not appear to be having difficulty. Plan : Patient continues to require a safe and supportive environment, mood continues to improve each day. Conservatorship continues to go forward.
[2022-07-03] MEDS: docusate sod 100mg capsule PO SCH (07:12)
[2022-07-03] MEDS: QUEtiapine 25mg tablet PO SCH ×3 (07:12→20:12)
[2022-07-03] MEDS: divalproex 250mg tablet, delayed-release PO SCH ×2 (07:13→20:12)
[2022-07-03] MEDS: benztropine 1mg tablet PO SCH ×2 (07:13→20:13)
[2022-07-03] MEDS: haloperidol 5mg tablet PO SCH ×4 (07:13→20:13)
[2022-07-03] MEDS: LORazepam 1 MG tablet PO SCH ×4 (07:13→20:13)
[2022-07-03] MEDS: nicotine 21mg patch - 24 hr TD SCH (07:14)
[2022-07-03] MEDS: ibuprofen tablet 400 MG TABLET PO SCH ×3 (07:41→16:22)
[2022-07-03] MEDS: NICOTINE POLACRILEX 2 MG LOZENGE BC PRN ×2 (07:41→13:52)
[2022-07-03 08:00] VITALS: BP 124/63
[2022-07-03] MEDS: acetaminophen 325mg tablet PO PRN ×2 (09:12→19:22)
[2022-07-03] MEDS: clonazePAM 1mg tablet PO PRN (15:34)
[2022-07-03] MEDS: traMADol 50MG tablet PO PRN (15:35)
--- NOTE | 2022-07-03 17:21 | NUR ---
Nursing Progress Note: Christophe Problem: Per 5150 pt. is here for SA by OD on street drugs after command hallucinations telling him to do so. Pt. states that he took "Fentanyl, black china, meth, 8 ball" in suicide attempt. Interventions: Maintained a safe and supportive environment, ensured contract for safety, provided clear and simple instructions, attempted to orient to reality, monitored behavior and provided intervention as needed, provided active listening and positive encouragement, encouraged independent performance of ADLs, and maintained Q 15min safety checks. Response: Received pt. asleep, he woke to attend breakfast. He denies SI, HI, A/VH and reports Im ready to go to [place] or something Pt. presents as upbeat this morning. He ate breakfast in the main dining room and socializes with cohorts. Pt. spent most of the morning walking around the unit and listening to headphones. Later staff alerted this signwriter to hearing teeth clenching from pt. Spoke to pt. and found he was angry and agitated, and he reported That damn girl was saying things to me, telling me shit Metallurgical Engineering Technician was able to speak to pt. for a while and encouraged pt. to use coping skills to deal with stressors; he was able to calm himself down. Pt. has good hygiene, well groomed, and wearing street clothes. Pt. reported bilateral ankle pain and received PRN Tylenol which was not effective. He presented as agitated pacing the unit d/t concerns of gaining 70 lbs from the medicine he then started perseverating on paperwork he signed and threw on the floor two weeks ago; PRN Klonopin and Tramadol given. Plan: Per provider, pt. continues to require a safe and supportive environment. Conservatorship is recommended.
[2022-07-03 19:43] VITALS: BP 122/77
[2022-07-03] MEDS: prazosin 1mg capsule PO SCH (20:12)
[2022-07-03] MEDS: quetiapine 100mg tablet PO SCH (20:12)
[2022-07-03] MEDS: traZODone 50mg tablet PO SCH (20:13)
--- NOTE | 2022-07-04 05:40 | NUR ---
NURSING PROGRESS NOTE Problem : Per 5150 pt. is here for SA by OD on street drugs after command hallucinations telling him to do so. Pt. states that he took "Fentanyl, black china, meth, 8 ball" in suicide attempt. Interventions : Maintained a safe and supportive environment, provided clear and simple instructions, monitored behavior and provided intervention as needed, provided active listening and positive encouragement, encouraged independent performance of ADLs, and maintained Q 15min safety checks. Response : Patient is pleasant and cooperative with care; compliant with medication. PRN Tylenol provided for ankle pain and Nicotine patch removed. He denies SI, HI, A/VH; no apparent delusions expressed this shift. Patient continues to perseverate on weight gain and reported he was working out in his room prior to bed; observed sleeping and does not appear to be having difficulty. Plan : Patient continues to require a safe and supportive environment, mood continues to improve each day. Conservatorship continues to go forward.
[2022-07-04] MEDS: nicotine 21mg patch - 24 hr TD SCH (07:01)
[2022-07-04] MEDS: divalproex 250mg tablet, delayed-release PO SCH ×2 (07:02→19:11)
[2022-07-04] MEDS: LORazepam 1 MG tablet PO SCH ×4 (07:02→19:12)
[2022-07-04] MEDS: benztropine 1mg tablet PO SCH ×2 (07:02→19:11)
[2022-07-04] MEDS: docusate sod 100mg capsule PO SCH (07:02)
[2022-07-04] MEDS: haloperidol 5mg tablet PO SCH ×4 (07:02→19:11)
[2022-07-04] MEDS: QUEtiapine 25mg tablet PO SCH ×3 (07:02→19:10)
[2022-07-04 08:00] VITALS: BP 115/72
[2022-07-04] MEDS: acetaminophen 325mg tablet PO PRN ×2 (08:32→17:02)
[2022-07-04] MEDS: ibuprofen tablet 400 MG TABLET PO SCH ×3 (08:33→17:33)
[2022-07-04] MEDS: NICOTINE POLACRILEX 2 MG LOZENGE BC PRN (13:23)
[2022-07-04] MEDS: clonazePAM 1mg tablet PO PRN (13:23)
--- NOTE | 2022-07-04 19:00 | NUR ---
NURSING PROGRESS NOTE: Problem: Per 5150 pt. is here for SA by OD on street drugs after command hallucinations telling him to do so. Pt. states that he took "Fentanyl, black china, meth, 8 ball" in suicide attempt. Pt. states he feels hopeless. Pt. is also delusional, stating, "they won't give me my billion dollars". Pt. states, "I tried killing myself because Im a free michelle. They dont love me but I love them. Yes I do." Interventions: Maintained a safe and supportive environment, provided foot care per wound care orders, provided clear and simple instructions, attempted to orient to reality, monitored behavior and provided intervention as needed, provided active listening and positive encouragement, encouraged independent performance of ADLs, and maintained Q 15min safety checks. Response: Patient was up for breakfast and compliant with morning med pass. Hes pleasant and cooperative with staff, whether pacing or in the community room. His mood can be labile depending on whats happening on the unit. Patient has a lot of delusional content that is evil, which makes it hard for him to believe hes a good person, worthy of love. Positive encouragement works, but there are setbacks that can be hard to overcome. Plan: Patients continues to be labile, however moods are improving with medication compliance. Pt continues to require a safe and supportive environment. Pts conservatorship is still going forward.
[2022-07-04] MEDS: traZODone 50mg tablet PO SCH (19:11)
[2022-07-04] MEDS: prazosin 1mg capsule PO SCH (19:12)
[2022-07-04] MEDS: quetiapine 100mg tablet PO SCH (19:13)
[2022-07-04 20:00] VITALS: BP 136/61
[2022-07-05] MEDS: docusate sod 100mg capsule PO SCH (07:26)
[2022-07-05] MEDS: haloperidol 5mg tablet PO SCH ×4 (07:27→20:15)
[2022-07-05] MEDS: benztropine 1mg tablet PO SCH ×2 (07:27→20:14)
[2022-07-05] MEDS: ibuprofen tablet 400 MG TABLET PO SCH ×3 (07:27→17:18)
[2022-07-05] MEDS: divalproex 250mg tablet, delayed-release PO SCH ×2 (07:27→20:14)
[2022-07-05] MEDS: QUEtiapine 25mg tablet PO SCH ×3 (07:28→20:16)
[2022-07-05] MEDS: LORazepam 1 MG tablet PO SCH ×4 (07:29→20:15)
[2022-07-05] MEDS: nicotine 21mg patch - 24 hr TD SCH (07:31)
[2022-07-05] MEDS: NICOTINE POLACRILEX 2 MG LOZENGE BC PRN ×3 (07:53→19:15)
[2022-07-05 08:00] VITALS: BP 107/67
[2022-07-05] MEDS: acetaminophen 325mg tablet PO PRN ×2 (08:36→14:11)
--- NOTE | 2022-07-05 16:05 | NUR ---
Nursing Progress Note: Problem : Per 5150 pt. is here for SA by OD on street drugs after command hallucinations telling him to do so. Pt. states that he took "Fentanyl, black china, meth, 8 ball" in suicide attempt. Interventions : Maintained a safe and supportive environment, ensured contract for safety, provided clear and simple instructions, attempted to orient to reality, monitored behavior and provided intervention as needed, provided active listening and positive encouragement, encouraged independent performance of ADLs, and maintained Q 15min safety checks. Response : Received Pt in bed sleeping w/o distress. Pt woke and was cooperative with vitals and returned to sleeping. Pt woke again for breakfast and ate well, and took AM meds early and w/o issue. Pt in pleasant mood overall, but spoke of daydreams about the end of the world and Armageddon. He requested Tylenol for pain X2 this shift, once for CUETO and the other for knee pain. Pt interested in football scores and joked with staff throughout the day. Pt used nicotine Lozenges X2. He ate meals well with others and interacted appropriately. Pt did not have any loud or aggressive outbursts today. Plan : Per Dr. Yeboah, pt. continues to require a safe and supportive environment. Conservatorship is recommended.
[2022-07-05] MEDS: clonazePAM 1mg tablet PO PRN (18:53)
[2022-07-05 20:00] VITALS: BP 111/47
[2022-07-05] MEDS: traZODone 50mg tablet PO SCH (20:15)
[2022-07-05] MEDS: quetiapine 100mg tablet PO SCH (20:16)
[2022-07-05] MEDS: prazosin 1mg capsule PO SCH (20:16)
--- NOTE | 2022-07-05 23:58 | NUR ---
Nursing Progress Note Problem : Per 5150 pt. is here for SA by OD on street drugs after command hallucinations telling him to do so. Pt. states that he took "Fentanyl, black china, meth, 8 ball" in suicide attempt. Interventions : Maintained a safe and supportive environment, ensured contract for safety, provided clear and simple instructions, attempted to orient to reality, monitored behavior and provided intervention as needed, provided active listening and positive encouragement, encouraged independent performance of ADLs, and maintained Q 15min safety checks. Response : Received Pt in community room watching TV after dinner. Pt cooperative with vitals and asked for a nicotine larissa. Pt apologized for agitation earlier and we were able to talk about how he handled his emotions well. Pt engaged in assessments and enjoyed snack. He received a PRN for anxiety and took PM meds w/o issue. He reported feeling more calm and expressed frustrations in a clear normal conversation. Pt sleeping at this time w/o distress. Plan : Per Dr. Yeboah, pt. continues to require a safe and supportive environment. Conservatorship is recommended.
[2022-07-06] MEDS: nicotine 21mg patch - 24 hr TD SCH (07:38)
[2022-07-06] MEDS: benztropine 1mg tablet PO SCH ×2 (07:38→20:28)
[2022-07-06] MEDS: LORazepam 1 MG tablet PO SCH ×4 (07:38→20:28)
[2022-07-06] MEDS: QUEtiapine 25mg tablet PO SCH ×3 (07:39→20:27)
[2022-07-06] MEDS: haloperidol 5mg tablet PO SCH ×4 (07:39→20:28)
[2022-07-06] MEDS: docusate sod 100mg capsule PO SCH (07:39)
[2022-07-06] MEDS: divalproex 250mg tablet, delayed-release PO SCH ×2 (07:39→20:30)
[2022-07-06] MEDS: ibuprofen tablet 400 MG TABLET PO SCH ×3 (07:40→17:21)
[2022-07-06 08:00] VITALS: BP 107/70
[2022-07-06] MEDS: NICOTINE POLACRILEX 2 MG LOZENGE BC PRN ×2 (10:34→17:20)
--- NOTE | 2022-07-06 17:00 | NUR ---
Nursing Progress Note: Problem: Per 5150 pt. is here for SA by OD on street drugs after command hallucinations telling him to do so. Pt. states that he took "Fentanyl, black china, meth, 8 ball" in suicide attempt. Pt. states he feels hopeless. Pt. is also delusional, stating, "They won't give me my billion dollars". Pt. states, "I tried killing myself because Im a free michelle. They dont love me but I love them. Yes I do." Interventions: Maintained a safe and supportive environment, provided foot care per wound care orders, provided clear and simple instructions, attempted to orient to reality, monitored behavior and provided intervention as needed, provided active listening and positive encouragement, encouraged independent performance of ADLs, and maintained Q 15min safety checks. Response: Patient was up for breakfast and AM med pass. He continues to be compliant with medications, and hasnt requested any PRNs today. This morning another patient was agitated and yelling, but the patient held it together all dayeven when his football team lost. This morning he appeared depressed, and avoided eye contact. This afternoon hes smiling and more amiable. Patient denies all MH symptoms, and none have been observed. He hasnt made any delusional statements, and conversation has been linear, although he is sometimes hard to understand. Plan: Patients continues to be labile, however moods are improving with medication compliance. Pt continues to require a safe and supportive environment. Pts conservatorship is still going forward
[2022-07-06 20:00] VITALS: BP 122/67
[2022-07-06] MEDS: prazosin 1mg capsule PO SCH (20:27)
[2022-07-06] MEDS: quetiapine 100mg tablet PO SCH (20:27)
[2022-07-06] MEDS: traZODone 50mg tablet PO SCH (20:28)
--- NOTE | 2022-07-07 05:36 | NUR ---
Nursing Progress Note: Problem: Per 5150 pt. is here for SA by OD on street drugs after command hallucinations telling him to do so. Pt. states that he took "Fentanyl, black china, meth, 8 ball" in suicide attempt. Pt. states he feels hopeless. Pt. is also delusional, stating, "They won't give me my billion dollars". Pt. states, "I tried killing myself because Im a free michelle. They dont love me but I love them. Yes I do." Interventions: Maintained a safe and supportive environment, provided foot care per wound care orders, provided clear and simple instructions, attempted to orient to reality, monitored behavior and provided intervention as needed, provided active listening and positive encouragement, encouraged independent performance of ADLs, and maintained Q 15min safety checks. Response: Patient is pleasant and cooperative with care; compliant with medication. He reported he removed his Nicotine prior to med pass. He denies SI, HI, a/VH; no apparent delusions expressed. Patient reported he is feeling anxious d/t upcoming court date as well as feeling depressed. Patient is social with staff and briefly walking the unit this shift. He briefly participated in HS snack prior to bed; observed sleeping and does not appear to be having difficulty. Plan: Patients continues to be labile, however moods are improving with medication compliance. Pt continues to require a safe and supportive environment. Pts conservatorship is still going forward
[2022-07-07] MEDS: divalproex 250mg tablet, delayed-release PO SCH ×2 (07:51→20:22)
[2022-07-07] MEDS: haloperidol 5mg tablet PO SCH ×4 (07:51→20:22)
[2022-07-07] MEDS: QUEtiapine 25mg tablet PO SCH ×3 (07:51→20:22)
[2022-07-07] MEDS: benztropine 1mg tablet PO SCH ×2 (07:52→20:22)
[2022-07-07] MEDS: LORazepam 1 MG tablet PO SCH ×4 (07:52→20:22)
[2022-07-07] MEDS: ibuprofen tablet 400 MG TABLET PO SCH ×3 (07:52→16:47)
[2022-07-07] MEDS: docusate sod 100mg capsule PO SCH (07:52)
[2022-07-07] MEDS: nicotine 21mg patch - 24 hr TD SCH (07:59)
[2022-07-07 08:00] VITALS: BP 98/67
[2022-07-07] MEDS: clonazePAM 1mg tablet PO PRN (11:57)
[2022-07-07] MEDS: NICOTINE POLACRILEX 2 MG LOZENGE BC PRN ×2 (12:57→17:06)
[2022-07-07] MEDS: acetaminophen 325mg tablet PO PRN (17:27)
--- NOTE | 2022-07-07 17:57 | NUR ---
Nursing Progress Note: Problem : Per 5150 pt. is here for SA by OD on street drugs after command hallucinations telling him to do so. Pt. states that he took "Fentanyl, black china, meth, 8 ball" in suicide attempt. Interventions : Maintained a safe and supportive environment, ensured contract for safety, provided clear and simple instructions, attempted to orient to reality, monitored behavior and provided intervention as needed, provided active listening and positive encouragement, encouraged independent performance of ADLs, and maintained Q 15min safety checks. Response : RN received pt. asleep in bed at start of shift. Pt. awoke and took all medications. Pt. ate all meal sin community room. Pt. pacing the hallways and c/o anxiety, pt. took scheduled Ativan and Haldol at 11AM with minimal effect. Pt. attempted to attend group but c/o of feeling too agitated. Pt. became agitated after he was not allowed to have a hot chocolate after scheduled snack time. Pt. slammed his door shouting, Im possessed by the devil!. Pt. given PRN Klonopin 2mg with good effect. Pt. later apologized to staff for his behavior. Pt. napped for 2 hours in the afternoon. Pt. awoke and requested headphones, pt. continued pacing. Pt. c/o left knee pain and requested Tylenol. Pt. received 650mg with good effect. Plan : Per Dr. Yeboah, pt. continues to require a safe and supportive environment. Conservatorship is recommended.
[2022-07-07] MEDS: haloperidol 5mg tablet PO PRN (18:18)
[2022-07-07] MEDS: traZODone 50mg tablet PO SCH (20:22)
[2022-07-07] MEDS: prazosin 1mg capsule PO SCH (20:22)
[2022-07-07] MEDS: quetiapine 100mg tablet PO SCH (20:22)
[2022-07-07 20:51] VITALS: BP 125/71
--- NOTE | 2022-07-07 21:42 | NUR ---
Nursing Progress Note: Problem : Per 5150 pt. is here for SA by OD on street drugs after command hallucinations telling him to do so. Pt. states that he took "Fentanyl, black china, meth, 8 ball" in suicide attempt. Interventions : Maintained a safe and supportive environment, ensured contract for safety, provided clear and simple instructions, attempted to orient to reality, monitored behavior and provided intervention as needed, provided active listening and positive encouragement, encouraged independent performance of ADLs, and maintained Q 15min safety checks. Response : Pt spent time pacing in the wagner at change of shift. He socialized in the group room during the evening. Pt reports having a bad day and is remorseful for the way he was acting. Pt reports feeling frustrated with his "humboldt conservator" states he doesnt feel like he is getting the right things, he wants new clothes and a place to go. Pt took HS meds after having an evening snack and went to bed. Plan : Per Dr. Yeboah, pt. continues to require a safe and supportive environment. Conservatorship is recommended.
[2022-07-08 07:49] VITALS: BP 113/71
[2022-07-08] MEDS: docusate sod 100mg capsule PO SCH (08:03)
[2022-07-08] MEDS: QUEtiapine 25mg tablet PO SCH ×3 (08:03→20:08)
[2022-07-08] MEDS: haloperidol 5mg tablet PO SCH ×4 (08:03→20:10)
[2022-07-08] MEDS: benztropine 1mg tablet PO SCH ×2 (08:03→20:09)
[2022-07-08] MEDS: ibuprofen tablet 400 MG TABLET PO SCH ×3 (08:04→17:28)
[2022-07-08] MEDS: LORazepam 1 MG tablet PO SCH ×4 (08:04→20:10)
[2022-07-08] MEDS: divalproex 250mg tablet, delayed-release PO SCH ×2 (08:04→20:09)
[2022-07-08] MEDS: nicotine 21mg patch - 24 hr TD SCH (08:09)
[2022-07-08] MEDS: acetaminophen 325mg tablet PO PRN (08:27)
[2022-07-08] MEDS: NICOTINE POLACRILEX 2 MG LOZENGE BC PRN (08:27)
--- NOTE | 2022-07-08 09:55 | NUR ---
Reassessment: Pt continues eating well, documented with mostly 100% PO intake while receiving double protein TID. LBM 07/05, receiving routine bowel care with PRN bowel care available. No nutrition intervention implemented at this time. Will continue to follow. Recommendations: 1) Continue Vegetarian diet per pt request 2) Double protein TID 3) Bowel care PRN 4) Weekly scaled weights Addendum: 07/08/22 at [address] Amended: Links added.
--- NOTE | 2022-07-08 14:04 | NUR ---
POISON CONTROL Called poison control for advisement on pt drinking a bottle of antibacterial hand soap. Poison control stated the concentration of benzalkonium chloride in the soap was low, and will only cause GI upset, vomiting, diarrhea. If vomiting persists, monitor hydration.
--- NOTE | 2022-07-08 14:40 | NUR ---
C[place]RT [place] does not need to attend court on 07/10/22. It is a status hearing. His next court date will be determined on 07/10/22 and Public Guardian will apprise marketing underwriter. JOEL Casanova
[2022-07-08] MEDS: clonazePAM 1mg tablet PO PRN (15:06)
--- NOTE | 2022-07-08 15:52 | NUR ---
THERAPEUTIC GROUP Client came into group room sporadically. Group focus was resilience and responding to change, specifically psychosocial education about change-related anxiety, and coping mechanisms. Client was distressed and angry, as evidenced by facial scowl, pacing, abrupt movements, pallor. Client did not speak.
--- NOTE | 2022-07-08 17:31 | NUR ---
Nursing Progress Note: Problem : Per 5150 pt. is here for SA by OD on street drugs after command hallucinations telling him to do so. Pt. states that he took "Fentanyl, black china, meth, 8 ball" in suicide attempt. Interventions : Maintained a safe and supportive environment, ensured contract for safety, provided clear and simple instructions, attempted to orient to reality, monitored behavior and provided intervention as needed, provided active listening and positive encouragement, encouraged independent performance of ADLs, and maintained Q 15min safety checks. Response : RN received pt. asleep in bed at start of shift. Pt. awoke and took all medications. Pt. ate all meal sin community room. Pt. pacing the hallways and c/o anxiety, pt. took scheduled Ativan and Haldol at 11AM with minimal effect. Pt. had an outburst of yelling, RN offered pt. anxiolytic but pt. refused along with scheduled Seroquel. Pt. states, Can you just kill me? I just want to !. Pt. pacing the hallway and shouting, all of you! I dont care about anyone! I dont care about my son! I dont care about my mom! Pt. then drank a bottle of hand-soap, stating, I hope this kills me. Poison control was called and instructions were to monitor pt. for hypovolemia. Pt. had several bouts of emesis but soon afterward pt. is observed eating and drinking and able to hold down fluids. Pt. eventually asked for Klonopin and received 2mg along with late dose of scheduled Seroquel. Pt. pacing hallway. Plan : Per Dr. Yeboah, pt. continues to require a safe and supportive environment. Conservatorship is recommended.
[2022-07-08 19:24] VITALS: BP 117/67
[2022-07-08] MEDS: prazosin 1mg capsule PO SCH (20:08)
[2022-07-08] MEDS: quetiapine 100mg tablet PO SCH (20:08)
[2022-07-08] MEDS: traZODone 50mg tablet PO SCH (20:10)
--- NOTE | 2022-07-09 05:19 | NUR ---
Nursing Progress Note: Problem : Per 5150 pt. is here for SA by OD on street drugs after command hallucinations telling him to do so. Pt. states that he took "Fentanyl, black china, meth, 8 ball" in suicide attempt. Interventions : Maintained a safe and supportive environment, ensured contract for safety, provided clear and simple instructions, attempted to orient to reality, monitored behavior and provided intervention as needed, provided active listening and positive encouragement, encouraged independent performance of ADLs, and maintained Q 15min safety checks. Response : Patient was found sleeping at change of shift. Patient continued to sleep and self isolate until getting up for snack time. Patients Participated in snack and took all night medications. Patient stated he still isn't feeling well and he is worried he is going to get trapped here forever. Patient returned to bed after eating snack. Plan : Per Dr. Yeboah, pt. continues to require a safe and supportive environment. Conservatorship is recommended.
[2022-07-09 07:38] VITALS: BP 114/59
[2022-07-09] MEDS: QUEtiapine 25mg tablet PO SCH ×3 (07:38→20:21)
[2022-07-09] MEDS: LORazepam 1 MG tablet PO SCH ×4 (07:38→20:20)
[2022-07-09] MEDS: benztropine 1mg tablet PO SCH ×2 (07:39→20:20)
[2022-07-09] MEDS: divalproex 250mg tablet, delayed-release PO SCH ×2 (07:39→20:20)
[2022-07-09] MEDS: haloperidol 5mg tablet PO SCH ×4 (07:39→20:20)
[2022-07-09] MEDS: ibuprofen tablet 400 MG TABLET PO SCH ×3 (07:39→17:17)
[2022-07-09] MEDS: docusate sod 100mg capsule PO SCH (07:39)
[2022-07-09] MEDS: NICOTINE POLACRILEX 2 MG LOZENGE BC PRN ×2 (08:09→11:27)
[2022-07-09] MEDS: acetaminophen 325mg tablet PO PRN (11:27)
[2022-07-09] MEDS: nicotine 21mg patch - 24 hr TD SCH (11:27)
[2022-07-09] MEDS: haloperidol 5mg tablet PO PRN (14:56)
[2022-07-09] MEDS: clonazePAM 1mg tablet PO PRN (15:53)
--- NOTE | 2022-07-09 18:05 | NUR ---
Nursing Progress Note: Problem : Per 5150 pt. is here for SA by OD on street drugs after command hallucinations telling him to do so. Pt. states that he took "Fentanyl, black china, meth, 8 ball" in suicide attempt. Interventions : Maintained a safe and supportive environment, ensured contract for safety, provided clear and simple instructions, attempted to orient to reality, monitored behavior and provided intervention as needed, provided active listening and positive encouragement, encouraged independent performance of ADLs, and maintained Q 15min safety checks. Response : RN received pt. asleep in bed at start of shift. Pt. awoke and took all medications. Pt. ate all meals iin community room. Pt. pacing the hallways and c/o anxiety, pt. took scheduled Ativan and Haldol at 11AM with moderate effect. In early afternoon pt. requesting anxiolytics and received Klonopin 2mg po and Haldol 5mg po with moderate effect. Pt. socializing with peers and pacing halls while listening to music on headphones. After dinner pt. pacing hallway and asking for more anxiolytics. Pt. states, What do I have to do to get out of here and go back to [place]? Actually I think I would take [place] even. Plan : Per Dr. Yeboah, pt. continues to require a safe and supportive environment. Conservatorship is recommended.
[2022-07-09 20:00] VITALS: BP 122/67
[2022-07-09] MEDS: quetiapine 100mg tablet PO SCH (20:20)
[2022-07-09] MEDS: traZODone 50mg tablet PO SCH (20:21)
[2022-07-09] MEDS: prazosin 1mg capsule PO SCH (20:21)
--- NOTE | 2022-07-10 01:54 | NUR ---
Nursing Progress Note: Christophe Problem : Per 5150 pt. is here for SA by OD on street drugs after command hallucinations telling him to do so. Pt. states that he took "Fentanyl, black china, meth, 8 ball" in suicide attempt. Interventions : Maintained a safe and supportive environment, ensured contract for safety, provided clear and simple instructions, attempted to orient to reality, monitored behavior and provided intervention as needed, provided active listening and positive encouragement, encouraged independent performance of ADLs, and maintained Q 15min safety checks. Response : RN received pt. sleeping. Woke pt for [employer] med pass. Pt states he did not have a good day. He said he felt stressed out because his niece had called and said he had a court date in [place] at 2pm today or tomorrow. Pt mumbled other things but RN could not make out what he said. Pt denies AH tonight. Pt had a snack and went back to sleep. Plan : Per Dr. Yeboah, pt. continues to require a safe and supportive environment. Conservatorship is recommended.
[2022-07-10] MEDS: QUEtiapine 25mg tablet PO SCH ×3 (08:06→20:22)
[2022-07-10] MEDS: divalproex 250mg tablet, delayed-release PO SCH ×2 (08:06→20:21)
[2022-07-10] MEDS: benztropine 1mg tablet PO SCH ×2 (08:06→20:22)
[2022-07-10] MEDS: docusate sod 100mg capsule PO SCH (08:07)
[2022-07-10] MEDS: nicotine 21mg patch - 24 hr TD SCH (08:07)
[2022-07-10] MEDS: ibuprofen tablet 400 MG TABLET PO SCH ×3 (08:07→17:05)
[2022-07-10] MEDS: haloperidol 5mg tablet PO SCH ×4 (08:07→20:21)
[2022-07-10] MEDS: LORazepam 1 MG tablet PO SCH ×4 (08:07→20:23)
[2022-07-10 09:10] VITALS: BP 133/67
[2022-07-10] MEDS: acetaminophen 325mg tablet PO PRN ×2 (10:38→16:18)
[2022-07-10] MEDS: NICOTINE POLACRILEX 2 MG LOZENGE BC PRN ×2 (10:39→19:09)
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
[2022-07-10 19:51] VITALS: BP 132/88
[2022-07-10] MEDS: traZODone 50mg tablet PO SCH (20:21)
[2022-07-10] MEDS: quetiapine 100mg tablet PO SCH (20:23)
[2022-07-10] MEDS: prazosin 1mg capsule PO SCH (20:23)
--- NOTE | 2022-07-11 05:02 | NUR ---
shin Progress Note: Problem: Per 5150 pt. is here for SA by OD on street drugs after command hallucinations telling him to do so. Pt. states that he took "Fentanyl, black china, meth, 8 ball" in suicide attempt. Interventions: Maintained a safe and supportive environment, ensured contract for safety, provided clear and simple instructions, attempted to orient to reality, monitored behavior and provided intervention as needed, provided active listening and positive encouragement, encouraged independent performance of ADLs, and maintained Q 15min safety checks. Response: Patient was found pacing unit listening to headphones and smiling to staff. Patient continued to pace unit until asking for nicotine lozenge after receiving tab patient arnt to get. Patient got up to participated in snack and then returned to pacing halls. Patient took all night medications without issue and began pacing again until eventually going back to bed. Plan: Per Dr. Yeboah, pt. continues to require a safe and supportive environment. Conservatorship is recommended.
[2022-07-11] MEDS: haloperidol 5mg tablet PO SCH ×4 (07:22→20:29)
[2022-07-11] MEDS: docusate sod 100mg capsule PO SCH (07:22)
[2022-07-11] MEDS: LORazepam 1 MG tablet PO SCH ×4 (07:22→20:29)
[2022-07-11] MEDS: divalproex 250mg tablet, delayed-release PO SCH ×2 (07:23→20:29)
[2022-07-11] MEDS: QUEtiapine 25mg tablet PO SCH ×3 (07:23→20:29)
[2022-07-11] MEDS: benztropine 1mg tablet PO SCH ×2 (07:23→20:29)
[2022-07-11] MEDS: nicotine 21mg patch - 24 hr TD SCH (07:27)
[2022-07-11] MEDS: ibuprofen tablet 400 MG TABLET PO SCH ×3 (07:33→17:27)
[2022-07-11 07:37] VITALS: BP 113/83
[2022-07-11] MEDS: acetaminophen 325mg tablet PO PRN ×2 (10:41→18:44)
--- NOTE | 2022-07-11 13:41 | NUR ---
PLACEMENT UPDATE Sent updated notes to Kal Trujillo with [facility] Public Guardian for placement purposes. Emailed and left him a voicemail asking him when Christophe's next court date is. Still waiting for a response. Email: [email or web address]
--- NOTE | 2022-07-11 15:02 | NUR ---
Nursing Progress Note Problem: Per 5150 pt. is here for SA by OD on street drugs after command hallucinations telling him to do so. Pt. states that he took "Fentanyl, black china, meth, 8 ball" in suicide attempt. Pt. states he feels hopeless. Pt. is also delusional, stating, "they won't give me my billion dollars". Pt. states, "I tried killing myself because Im a free michelle. They dont love me but I love them. Yes I do." Interventions: 1:1 assessment, medication administration/education/monitoring, therapeutic conversation, active listening, ensured contract for safety, provided distraction, redirection, encouragement, positive reinforcement, and Q15 minute safety checks. Response: Pt was up before breakfast asking for his meds. Pt was pleasant and cooperative with medication and assessments. Pt denied SI/HI/AH/VH. Pt paces the unit listening to radio headphones. Pt likes listening to Kylie Coronel, Dacia Heard, and Arnold. Pt is restless at times, he does not like to sit or lie down for too long during the day despite his legs becoming sore from it at times. Pt requested PRN Tylenol 650 mg for 2/10 left posterior knee pain at 1041 with good effect. Pt also takes routine Motrin. Lotion applied to dry skin on feet and calloused great toes, no open areas noted. Pt becomes anxious at times when he thinks about wishing to be discharged somewhere. Pt is able to calm himself and easily redirectable. Plan: Crisis interruption and stabilization in a safe and therapeutic environment. Pt is on a TCON. Pt is awaiting for his county to arrange a court date.
[2022-07-11] MEDS: NICOTINE POLACRILEX 2 MG LOZENGE BC PRN (18:43)
[2022-07-11 19:00] VITALS: BP 130/84
[2022-07-11] MEDS: traZODone 50mg tablet PO SCH (20:29)
[2022-07-11] MEDS: prazosin 1mg capsule PO SCH (20:29)
[2022-07-11] MEDS: quetiapine 100mg tablet PO SCH (20:29)
--- NOTE | 2022-07-12 03:38 | NUR ---
Nursing Progress Note Problem: Per 5150 pt. is here for SA by OD on street drugs after command hallucinations telling him to do so. Pt. states that he took "Fentanyl, black china, meth, 8 ball" in suicide attempt. Pt. states he feels hopeless. Pt. is also delusional, stating, "they won't give me my billion dollars". Pt. states, "I tried killing myself because Im a free michelle. They dont love me but I love them. Yes I do." Interventions: 1:1 assessment, medication administration/education/monitoring, therapeutic conversation, active listening, ensured contract for safety, provided distraction, redirection, encouragement, positive reinforcement, and Q15 minute safety checks. Response: Patient is pleasant and cooperative with care; compliant with medication. PRN Tylenol provided for his L knee. Nicotine patch removed. He denies SI, HI, A/VH; no apparent delusions expressed. He is social with staff, paced the unit and participated in HS snack prior to bed; observed sleeping and does not appear to be having difficulty. Plan: Crisis interruption and stabilization in a safe and therapeutic environment. Pt is on a TCON. Pt is awaiting for his county to arrange a court date.
[2022-07-12] MEDS: nicotine 21mg patch - 24 hr TD SCH (07:15)
[2022-07-12] MEDS: docusate sod 100mg capsule PO SCH (07:16)
[2022-07-12] MEDS: haloperidol 5mg tablet PO SCH ×4 (07:16→20:29)
[2022-07-12] MEDS: QUEtiapine 25mg tablet PO SCH ×3 (07:16→20:29)
[2022-07-12] MEDS: LORazepam 1 MG tablet PO SCH ×4 (07:16→20:30)
[2022-07-12] MEDS: benztropine 1mg tablet PO SCH ×2 (07:17→20:30)
[2022-07-12] MEDS: divalproex 250mg tablet, delayed-release PO SCH ×2 (07:17→20:29)
[2022-07-12] MEDS: ibuprofen tablet 400 MG TABLET PO SCH ×3 (07:36→17:10)
[2022-07-12 08:00] VITALS: BP 139/81
[2022-07-12] MEDS: acetaminophen 325mg tablet PO PRN ×2 (08:24→17:10)
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
[2022-07-12] MEDS: clonazePAM 1mg tablet PO PRN (13:03)
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
[2022-07-12 20:00] VITALS: BP 112/53
[2022-07-12] MEDS: traZODone 50mg tablet PO SCH (20:29)
[2022-07-12] MEDS: prazosin 1mg capsule PO SCH (20:29)
[2022-07-12] MEDS: quetiapine 100mg tablet PO SCH (20:30)
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
[2022-07-13] MEDS: benztropine 1mg tablet PO SCH ×2 (07:31→20:35)
[2022-07-13] MEDS: ibuprofen tablet 400 MG TABLET PO SCH ×3 (07:31→17:37)
[2022-07-13] MEDS: docusate sod 100mg capsule PO SCH (07:32)
[2022-07-13] MEDS: QUEtiapine 25mg tablet PO SCH ×3 (07:32→20:35)
[2022-07-13] MEDS: divalproex 250mg tablet, delayed-release PO SCH ×2 (07:32→20:35)
[2022-07-13] MEDS: haloperidol 5mg tablet PO SCH ×4 (07:32→20:35)
[2022-07-13] MEDS: LORazepam 1 MG tablet PO SCH ×4 (07:32→20:35)
[2022-07-13] MEDS: nicotine 21mg patch - 24 hr TD SCH (07:33)
[2022-07-13 08:00] VITALS: BP 96/64
[2022-07-13] MEDS: acetaminophen 325mg tablet PO PRN (08:31)
[2022-07-13] MEDS: NICOTINE POLACRILEX 2 MG LOZENGE BC PRN (15:48)
[2022-07-13] MEDS: clonazePAM 1mg tablet PO PRN (15:50)
--- NOTE | 2022-07-13 17:14 | NUR ---
Nursing Progress Note: Problem: Per 5150 pt. is here for SA by OD on street drugs after command hallucinations telling him to do so. Pt. states that he took "Fentanyl, black china, meth, 8 ball" in suicide attempt. Pt. states he feels hopeless. Pt. is also delusional, stating, "they won't give me my billion dollars". Pt. states, "I tried killing myself because Im a free michelle. They dont love me but I love them. Yes I do." Interventions: 1:1 assessment, medication administration/education/monitoring, therapeutic conversation, active listening, ensured contract for safety, provided distraction, redirection, encouragement, positive reinforcement, and Q15 minute safety checks. Response: Patient awake shortly after change of shift. Patient requests his medications early, which is his usual routine. Patient has increasing stress/anxiety in the morning and patient states that if he is flipped off again, he will probably act on it. Instructed patient to get RN before he does anything and patient agrees. Patient checks with staff before entering dining room, to see if it is safe. Patient is told where to sit in dining room to ensure safety during meals. Patient self-isolates in his room for most of the day, napping on and off. At approximately 15:45, patient requests something for anxiety and was given his prn Klonopin, and again appears anxious and impulsive. There were no behavioral difficulties this shift. Plan: Crisis interruption and stabilization in a safe and therapeutic environment. Pt is on a TCON. Pt is awaiting for his county to arrange a court date.
[2022-07-13 20:10] VITALS: BP 98/59
[2022-07-13] MEDS: quetiapine 100mg tablet PO SCH (20:35)
[2022-07-13] MEDS: traZODone 50mg tablet PO SCH (20:36)
[2022-07-13] MEDS: prazosin 1mg capsule PO SCH (20:36)
--- NOTE | 2022-07-14 03:48 | NUR ---
Nursing Progress Note: Problem: Per 5150 pt. is here for SA by OD on street drugs after command hallucinations telling him to do so. Pt. states that he took "Fentanyl, black china, meth, 8 ball" in suicide attempt. Pt. states he feels hopeless. Pt. is also delusional, stating, "They won't give me my billion dollars". Pt. states, "I tried killing myself because Im a free michelle. They dont love me but I love them. Yes I do." Interventions: 1:1 assessment, medication administration/education/monitoring, therapeutic conversation, active listening, ensured contract for safety, provided distraction, redirection, encouragement, positive reinforcement, and Q15 minute safety checks. Response: Patient received resting quietly in bed with eyes closed. Awakened for medication and assessment which he is cooperative with. He appears fatigued and only gives short answers to questions. Denies any mental health symptoms. Patient then goes back to sleep. Plan: Crisis interruption and stabilization in a safe and therapeutic environment. Pt is on a TCON. Pt is awaiting for his county to arrange a court date.
[2022-07-14] MEDS: benztropine 1mg tablet PO SCH ×2 (07:33→20:39)
[2022-07-14] MEDS: QUEtiapine 25mg tablet PO SCH ×3 (07:34→20:40)
[2022-07-14] MEDS: LORazepam 1 MG tablet PO SCH ×4 (07:34→20:38)
[2022-07-14] MEDS: divalproex 250mg tablet, delayed-release PO SCH ×2 (07:34→20:39)
[2022-07-14] MEDS: ibuprofen tablet 400 MG TABLET PO SCH ×3 (07:34→17:00)
[2022-07-14] MEDS: haloperidol 5mg tablet PO SCH ×4 (07:34→20:38)
[2022-07-14] MEDS: docusate sod 100mg capsule PO SCH (07:34)
[2022-07-14] MEDS: nicotine 21mg patch - 24 hr TD SCH (07:35)
[2022-07-14 08:00] VITALS: BP 161/81
[2022-07-14] MEDS: NICOTINE POLACRILEX 2 MG LOZENGE BC PRN (08:43)
[2022-07-14] MEDS: clonazePAM 1mg tablet PO PRN (10:33)
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
[2022-07-14 19:42] VITALS: BP 110/60
[2022-07-14] MEDS: quetiapine 100mg tablet PO SCH (20:39)
[2022-07-14] MEDS: traZODone 50mg tablet PO SCH (20:39)
[2022-07-14] MEDS: prazosin 1mg capsule PO SCH (20:39)
[2022-07-14 20:48] VITALS: BP 120/80
--- NOTE | 2022-07-14 23:55 | NUR ---
NURSING PROGRESS NOTE Problem: Per 5150 pt. is here for SA by OD on street drugs after command hallucinations telling him to do so. Pt. states that he took "Fentanyl, black china, meth, 8 ball" in suicide attempt. Interventions: Maintained a safe and supportive environment, provided clear and simple instructions, monitored behavior and provided intervention as needed, administered scheduled medications per orders with no adverse side effects, maintained Q 15min safety checks. Response: Received patient sleeping at shift change, no distress noted. When asked how pts day was pt stated not good. Pt declined to engage in conversation, however was polite and calm. Pt states he took Nicotine patch off earlier in the shift. Pt remained in his room the entire shift. Pt was awoken to take HS medications then went back to sleep. Pt declined HS snack. Pt is sleeping restfully. Plan: Patient continues to require a safe and supportive environment. Conservatorship continues to move forward.
[2022-07-15] MEDS: divalproex 250mg tablet, delayed-release PO SCH ×2 (07:14→21:17)
[2022-07-15] MEDS: QUEtiapine 25mg tablet PO SCH ×3 (07:14→21:17)
[2022-07-15] MEDS: docusate sod 100mg capsule PO SCH (07:14)
[2022-07-15] MEDS: LORazepam 1 MG tablet PO SCH ×4 (07:14→21:17)
[2022-07-15] MEDS: benztropine 1mg tablet PO SCH ×2 (07:14→21:17)
[2022-07-15] MEDS: haloperidol 5mg tablet PO SCH ×4 (07:14→21:16)
[2022-07-15] MEDS: nicotine 21mg patch - 24 hr TD SCH (07:15)
[2022-07-15] MEDS: NICOTINE POLACRILEX 2 MG LOZENGE BC PRN (07:41)
[2022-07-15] MEDS: ibuprofen tablet 400 MG TABLET PO SCH ×3 (07:59→16:49)
[2022-07-15 08:00] VITALS: BP 120/71
[2022-07-15] MEDS: clonazePAM 1mg tablet PO PRN (10:43)
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
--- NOTE | 2022-07-15 16:30 | NUR ---
Nursing Progress Note: Christophe Problem: Per 5150 pt. is here for SA by OD on street drugs after command hallucinations telling him to do so. Pt. states that he took "Fentanyl, black china, meth, 8 ball" in suicide attempt. Interventions: Maintained a safe and supportive environment, ensured contract for safety, provided clear and simple instructions, attempted to orient to reality, monitored behavior and provided intervention as needed, provided active listening and positive encouragement, encouraged independent performance of ADLs, and maintained Q 15min safety checks. Response: Received pt. asleep in his room. Pt. awoke and requested his morning medications which he took without hesitation. He denies SI, HI, A/VH and reports feeling depressed Pt. was calm this morning and ate breakfast in the dining room. Later in the morning pt. was observed on the phone and was heard talking loudly, rambling on about switching his conservator. Equity Sales Assistant discussed breathing techniques to assist with stress management, he was receptive and also requested PRN klonopin. Pt. spent the remainder of the morning listening to headphones and walking around the unit. Pt. perseverates on changing his conservator and has made several calls today. Pt. has fair hygiene and is wearing the same street clothes from yesterday. Plan: Per provider, pt. continues to require a safe and supportive environment. Conservatorship is recommended.
[2022-07-15 20:29] VITALS: BP 123/74
[2022-07-15] MEDS: prazosin 1mg capsule PO SCH (21:15)
[2022-07-15] MEDS: traZODone 50mg tablet PO SCH (21:17)
[2022-07-15] MEDS: quetiapine 100mg tablet PO SCH (21:18)
--- NOTE | 2022-07-15 23:47 | NUR ---
Nursing Progress Note: Christophe Problem: Per 5150 pt. is here for SA by OD on street drugs after command hallucinations telling him to do so. Pt. states that he took "Fentanyl, black china, meth, 8 ball" in suicide attempt. Interventions: Maintained a safe and supportive environment, ensured contract for safety, provided clear and simple instructions, attempted to orient to reality, monitored behavior and provided intervention as needed, provided active listening and positive encouragement, encouraged independent performance of ADLs, and maintained Q 15min safety checks. Response: Pt was in his room asleep at change of shift. Pt woke for assessment states he wants to go back to sleep. pt states his day was "ok". Pt denies s/i, appears to be depressed, and gives minimal response to questions. Pt took HS meds and went back to sleep. Plan: Per provider, pt. continues to require a safe and supportive environment. Conservatorship is recommended.
[2022-07-16] MEDS: divalproex 250mg tablet, delayed-release PO SCH ×2 (07:43→20:34)
[2022-07-16] MEDS: QUEtiapine 25mg tablet PO SCH ×3 (07:43→20:33)
[2022-07-16] MEDS: LORazepam 1 MG tablet PO SCH ×4 (07:43→20:34)
[2022-07-16] MEDS: benztropine 1mg tablet PO SCH ×2 (07:43→20:34)
[2022-07-16] MEDS: haloperidol 5mg tablet PO SCH ×4 (07:43→20:34)
[2022-07-16] MEDS: docusate sod 100mg capsule PO SCH (07:43)
[2022-07-16] MEDS: ibuprofen tablet 400 MG TABLET PO SCH ×3 (07:43→17:32)
[2022-07-16] MEDS: nicotine 21mg patch - 24 hr TD SCH (07:44)
[2022-07-16 08:00] VITALS: BP 111/79
[2022-07-16] MEDS: acetaminophen 325mg tablet PO PRN ×2 (08:20→14:47)
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
[2022-07-16] MEDS: NICOTINE POLACRILEX 2 MG LOZENGE BC PRN ×2 (11:49→16:15)
--- NOTE | 2022-07-16 16:29 | NUR ---
Nursing Progress Note: Christophe Problem: Per 5150 pt. is here for SA by OD on street drugs after command hallucinations telling him to do so. Pt. states that he took "Fentanyl, black china, meth, 8 ball" in suicide attempt. Interventions: Maintained a safe and supportive environment, ensured contract for safety, provided clear and simple instructions, attempted to orient to reality, monitored behavior and provided intervention as needed, provided active listening and positive encouragement, encouraged independent performance of ADLs, and maintained Q 15min safety checks. Response: Received pt. asleep in his room. He awoke and took his medication without hesitation. He denies SI, HI, A/VH and reports feeling depressed he reported his DC plan stay in [facility] Pt. was calm this morning and ate breakfast in the dining room. He later approached jingle writer c/o I need medicine for the voices, they are saying Nikki Jordan Pt. was due for routine Ativan and Haldol so no further medications were given. Pt. did well and discussed using relaxation breathing techniques. This jingle writer encouraged him to participate in therapy, he did attend for brief periods, but he reports I have a hard time sitting still Pt. made several calls today, none of which triggered a behavioral response. Pt. ate lunch in dining room took a shower. He spent some time walking around the unit and listening to head phones. He requested Tylenol for Lt. leg pain, and later requested Tylenol for dental pain, and several nicotine lozenges were requested and given. Pt. has fair hygiene and is wearing the same street clothes from yesterday. Plan: Per provider, pt. continues to require a safe and supportive environment. Conservatorship is recommended.
[2022-07-16] MEDS: clonazePAM 1mg tablet PO PRN (17:47)
[2022-07-16 19:40] VITALS: BP 122/67
[2022-07-16] MEDS: quetiapine 100mg tablet PO SCH (20:34)
[2022-07-16] MEDS: traZODone 50mg tablet PO SCH (20:34)
[2022-07-16] MEDS: prazosin 1mg capsule PO SCH (20:35)
--- NOTE | 2022-07-17 00:07 | NUR ---
Nursing Progress Note: Christophe Problem: Per 5150 pt. is here for SA by OD on street drugs after command hallucinations telling him to do so. Pt. states that he took "Fentanyl, black china, meth, 8 ball" in suicide attempt. Interventions: Maintained a safe and supportive environment, ensured contract for safety, provided clear and simple instructions, attempted to orient to reality, monitored behavior and provided intervention as needed, provided active listening and positive encouragement, encouraged independent performance of ADLs, and maintained Q 15min safety checks. Response: Received pt. lying in bed resting. He states he is doing OK and that he is somewhat depressed and anxious. Pt isolated all evening and took HS medications and went back to sleep. No other needs or complaints. He denies SI, HI, A/VH. Plan: Per provider, pt. continues to require a safe and supportive environment. Conservatorship is recommended.
[2022-07-17] MEDS: NICOTINE POLACRILEX 2 MG LOZENGE BC PRN (06:41)
--- NOTE | 2022-07-17 07:02 | NUR ---
Reassessment: Pt continues eating well on Vegetarian diet, documented with mostly 100% PO intake while receiving double protein TID. LBM 07/15, receiving routine bowel care with PRN bowel care available. No nutrition intervention implemented at this time. Will continue to follow. Recommendations: 1) Continue Vegetarian diet per pt request 2) Double protein TID 3) Bowel care PRN 4) Weekly scaled weights Addendum: 07/17/22 at [address] Amended: Links added.
[2022-07-17] MEDS: QUEtiapine 25mg tablet PO SCH ×3 (07:44→20:39)
[2022-07-17] MEDS: nicotine 21mg patch - 24 hr TD SCH (07:44)
[2022-07-17] MEDS: divalproex 250mg tablet, delayed-release PO SCH ×2 (07:44→20:41)
[2022-07-17] MEDS: benztropine 1mg tablet PO SCH ×2 (07:44→20:39)
[2022-07-17] MEDS: docusate sod 100mg capsule PO SCH (07:44)
[2022-07-17] MEDS: LORazepam 1 MG tablet PO SCH ×4 (07:44→20:40)
[2022-07-17] MEDS: ibuprofen tablet 400 MG TABLET PO SCH ×3 (07:45→17:30)
[2022-07-17] MEDS: haloperidol 5mg tablet PO SCH ×4 (07:45→20:40)
[2022-07-17 08:00] VITALS: BP 136/73
[2022-07-17] MEDS: acetaminophen 325mg tablet PO PRN ×2 (10:00→15:26)
--- NOTE | 2022-07-17 14:48 | NUR ---
Received order for consult. Patient asked Hospitalist for Suboxone. Spoke with patients Hospice Clinical Manager and she plans on talking to Dr Mckenzie to see if this would be beneficial for patient.
--- NOTE | 2022-07-17 17:39 | NUR ---
Nursing Progress Note: Problem: Per 5150 pt. is here for SA by OD on street drugs after command hallucinations telling him to do so. Pt. states that he took "Fentanyl, black china, meth, 8 ball" in suicide attempt. Interventions: Maintained a safe and supportive environment, ensured contract for safety, provided clear and simple instructions, attempted to orient to reality, monitored behavior and provided intervention as needed, provided active listening and positive encouragement, encouraged independent performance of ADLs, and maintained Q 15min safety checks. Response: Patient asleep at shift change. He was up for breakfast, and accepted his AM meds. Patient is compliant with nursing and medications. He is pleasant and cooperative today. Patient denies all MH symptoms, but has made delusional statements today about being a Freemason, and also Lucifer. Patient also states that he believes people believe he is evil. He was assured that we dont believe he is evil. Patient has a hard time believing in himself, and that hes worthy of being loved. Been no adverse behaviors today. No mood lability observed. He continues to use the headphones to help with the voices. Plan: Per provider, pt. continues to require a safe and supportive environment. Conservatorship is recommended.
[2022-07-17 19:00] VITALS: BP 124/74
[2022-07-17] MEDS: traZODone 50mg tablet PO SCH (20:39)
[2022-07-17] MEDS: quetiapine 100mg tablet PO SCH (20:40)
[2022-07-17] MEDS: prazosin 1mg capsule PO SCH (20:40)
--- NOTE | 2022-07-18 05:36 | NUR ---
Nursing Progress Note: Problem: Per 5150 pt. is here for SA by OD on street drugs after command hallucinations telling him to do so. Pt. states that he took "Fentanyl, black china, meth, 8 ball" in suicide attempt. Interventions: Maintained a safe and supportive environment, ensured contract for safety, provided clear and simple instructions, attempted to orient to reality, monitored behavior and provided intervention as needed, provided active listening and positive encouragement, encouraged independent performance of ADLs, and maintained Q 15min safety checks. Response: Patient was observed sleeping at change of shift. Patient continued to sleep until nurse brought in night medications. Patient was encouraged to participate in snack but refused. Patient retuned to sleep until 0500 when patient woke up asking about a new medications that was supposed to be added. Patient was not happy when he found out it was not there. Plan: Per provider, pt. continues to require a safe and supportive environment. Conservatorship is recommended.
[2022-07-18 07:26] VITALS: BP 115/75
[2022-07-18] MEDS: nicotine 21mg patch - 24 hr TD SCH (07:51)
[2022-07-18] MEDS: haloperidol 5mg tablet PO SCH ×4 (07:51→20:25)
[2022-07-18] MEDS: docusate sod 100mg capsule PO SCH (07:51)
[2022-07-18] MEDS: LORazepam 1 MG tablet PO SCH ×4 (07:51→20:25)
[2022-07-18] MEDS: divalproex 250mg tablet, delayed-release PO SCH ×2 (07:52→20:26)
[2022-07-18] MEDS: benztropine 1mg tablet PO SCH ×2 (07:52→20:25)
[2022-07-18] MEDS: ibuprofen tablet 400 MG TABLET PO SCH ×3 (07:52→18:02)
[2022-07-18] MEDS: QUEtiapine 25mg tablet PO SCH ×3 (07:52→20:26)
[2022-07-18] MEDS: acetaminophen 325mg tablet PO PRN ×2 (08:15→15:37)
[2022-07-18] MEDS: clonazePAM 1mg tablet PO PRN (09:59)
[2022-07-18] MEDS: NICOTINE POLACRILEX 2 MG LOZENGE BC PRN (11:28)
--- NOTE | 2022-07-18 12:53 | NUR ---
Sent updated notes to [facility] for placement purposes. JOEL Casanova
[2022-07-18] MEDS ORDERED: buprenorphine/naloxone 2-0.5mg sublingual tablet SL ONE (15:20)
--- NOTE | 2022-07-18 18:13 | NUR ---
Nursing Progress Note: Problem : Per 5150 Pt. reports recurring suicidal thoughts and was planning to commit suicide with a hand written note. Pt. makes multiple somatic complaints. Pt. reports of having a tape worm and recently losing 70lbs. Pt. reports he has a bug in his right ear, that this bone structure is changing, and that he has HIV. Pt. reports SI but states, "Not here though". Pt. reports he did have a plan to use a knife to cut himself. Pt. report previous suicide attempt attempting to cut himself 2 years ago. Pt. reports A/VH, reporting that he hears people talking in his head and images being projected and bright flashes. Pt. reports he does not have any goals or dreams because 6 years ago he quit working due to memory issues. Pt. stopped taking his medications in January 2022 because he felt they were not working. Interventions : Introduced self and established rapport, maintained a safe and supportive environment, ensured contract for safety, provided clear and simple instructions, provided active listening and positive encouragement, encouraged participation on the unit, provided medication education and encouraged compliance, and maintained Q 15min safety checks. Response : Patient seen in bed at [facility]. He wakes up for breakfast, but states Im not hungry. Hes compliant with medications and still believes he has tapeworm. A stool sample was sent to the lab and there were no white blood cells or tapeworm observed. Patient continues to be depressed, feeling worthless and useless. He believes the only thing that will fix it is for him to . He continues to refuse food, and he drinks very little. Plan : Pt. is not eating nor drinking and needs crisis intervention and medication titration. Pt. wants to go to the [facility] and working with SS for that.
[2022-07-18 19:41] VITALS: BP 138/85
[2022-07-18] MEDS: traZODone 50mg tablet PO SCH (20:25)
[2022-07-18] MEDS: quetiapine 100mg tablet PO SCH (20:27)
[2022-07-18] MEDS: prazosin 1mg capsule PO SCH (20:27)
--- NOTE | 2022-07-19 05:35 | NUR ---
Nursing Progress Note: Problem: Per 5150 pt. is here for SA by OD on street drugs after command hallucinations telling him to do so. Pt. states that he took "Fentanyl, black china, meth, 8 ball" in suicide attempt. Interventions: Maintained a safe and supportive environment, ensured contract for safety, provided clear and simple instructions, attempted to orient to reality, monitored behavior and provided intervention as needed, provided active listening and positive encouragement, encouraged independent performance of ADLs, and maintained Q 15min safety checks. Response: Patient was received pacing hallways at beginning of shift. Patient expressed concern in gaining weight and hoped if he paced the halls for two hour he could burn off his dinner. Patient was later observed listening to music and sitting on end of bed Patient refused to eat snack but kept asking for juice. Patient took all night medications without issue and retuned to pacing halls until eventually going to bed. Patient got up two separate times in the night asking for more juice. Plan: Per provider, pt. continues to require a safe and supportive environment. Conservatorship is recommended.
[2022-07-19] MEDS: ibuprofen tablet 400 MG TABLET PO SCH ×3 (07:00→17:02)
[2022-07-19] MEDS: divalproex 250mg tablet, delayed-release PO SCH ×2 (07:00→20:01)
[2022-07-19] MEDS: QUEtiapine 25mg tablet PO SCH ×3 (07:01→20:01)
[2022-07-19] MEDS: LORazepam 1 MG tablet PO SCH ×4 (07:01→20:02)
[2022-07-19] MEDS: haloperidol 5mg tablet PO SCH ×4 (07:01→20:03)
[2022-07-19] MEDS: docusate sod 100mg capsule PO SCH (07:01)
[2022-07-19] MEDS: benztropine 1mg tablet PO SCH ×2 (07:01→20:02)
[2022-07-19] MEDS: nicotine 21mg patch - 24 hr TD SCH (07:02)
[2022-07-19 07:25] VITALS: BP 107/69
[2022-07-19] MEDS: buprenorphine/naloxone 2-0.5mg sublingual tablet SL SCH (08:11)
[2022-07-19] MEDS: acetaminophen 325mg tablet PO PRN (09:19)
--- NOTE | 2022-07-19 16:23 | NUR ---
Nursing Progress Note: Problem: Pt on a 5150 for DTS. Pt reports the devil is talking to him telling him to commit suicide and he plans to overdose on Fentanyl. Interventions: Provided 1:1 assessment with therapeutic communication and active listening; Provided medication administration/education/monitoring; Provided PRN's as requested; Encouraged participation of outside group activity; Observed pt tearful; Monitored and Maintained Q 15min safety checks. Response: Pt calm, cooperative and polite during morning assessment; Pt is medication compliant; requesting either PRN's or routine medications most of the day; Pt declined outside group obsessing on "exercise and increasing endorphins." He continues to appear depressed with a flat affect. He reports, "I miss my son" he was observed crying. Plan : Pt. is not eating nor drinking and needs crisis intervention and medication titration. Pt. wants to go to the [facility] and working with SS for that.
[2022-07-19 19:00] VITALS: BP 108/66
[2022-07-19] MEDS: prazosin 1mg capsule PO SCH (20:00)
[2022-07-19] MEDS: quetiapine 100mg tablet PO SCH (20:00)
[2022-07-19] MEDS: traZODone 50mg tablet PO SCH (20:02)
--- NOTE | 2022-07-20 05:35 | NUR ---
Nursing Progress Note: Problem: Pt on a 5150 for DTS. Pt reports the devil is talking to him telling him to commit suicide and he plans to overdose on Fentanyl. Interventions: Provided 1:1 assessment with therapeutic communication and active listening; Provided medication administration/education/monitoring; Provided PRN's as requested; Encouraged participation of outside group activity; Observed pt tearful; Monitored and Maintained Q 15min safety checks. Response: Patient was observed pacing unit again stating he needed to burn calories. Patient was later found sleeping in bed and had to be awoken in order to give night medications. Patient again refused night snack stating he wont be taking in no extra calories. Patient retuned to bed after medications. Patient slept until 2300 when he got up confused about the time. Patient had to be told multiple times what time it was. Patient eventually went back to bed. Plan : Pt. is not eating nor drinking and needs crisis intervention and medication titration. Pt. wants to go to the [facility] and working with SS for that.
[2022-07-20] MEDS: divalproex 250mg tablet, delayed-release PO SCH ×2 (07:06→19:41)
[2022-07-20] MEDS: LORazepam 1 MG tablet PO SCH ×4 (07:06→19:42)
[2022-07-20] MEDS: QUEtiapine 25mg tablet PO SCH ×3 (07:06→19:43)
[2022-07-20] MEDS: docusate sod 100mg capsule PO SCH (07:06)
[2022-07-20] MEDS: nicotine 21mg patch - 24 hr TD SCH (07:06)
[2022-07-20] MEDS: benztropine 1mg tablet PO SCH ×2 (07:07→19:42)
[2022-07-20] MEDS: haloperidol 5mg tablet PO SCH ×4 (07:07→19:41)
[2022-07-20] MEDS: ibuprofen tablet 400 MG TABLET PO SCH ×3 (07:08→16:55)
[2022-07-20] MEDS: buprenorphine/naloxone 2-0.5mg sublingual tablet SL SCH (07:08)
[2022-07-20 07:47] VITALS: BP 108/67
[2022-07-20] MEDS: acetaminophen 325mg tablet PO PRN ×2 (11:24→18:42)
--- NOTE | 2022-07-20 17:13 | NUR ---
Nursing Progress Note: Problem: Pt on a 5150 for DTS. Pt reports the devil is talking to him telling him to commit suicide and he plans to overdose on Fentanyl. Interventions: Provided 1:1 assessment with therapeutic communication and active listening; Provided medication administration/education/monitoring; Provided PRN's as requested; Encouraged participation of outside group activity, Monitored and Maintained Q 15min safety checks. Response: Received patient awake shortly after change of shift. Patient requests medications early, and ate with peers in dining room. Patient appears a little more social today with peers and is pleasant and cooperative this shift. Patient reports being happy, but tired. Patient informs RN that his mom has cancer, and appears a sad when telling story. He wants to know if there are any organizations that donate money to cancer patients. Patient tells RN that I remind him of his mother, and smiles. Patient has been pacing on the unit most of the afternoon. Patient complains of right great toe pain, where his toenail came off, routine Motrin with prn Tylenol administered with good result. Plan : Patient needs structured environment with medication adjustments in a safe environment.
[2022-07-20] MEDS: NICOTINE POLACRILEX 2 MG LOZENGE BC PRN (18:42)
[2022-07-20] MEDS: traZODone 50mg tablet PO SCH (19:41)
[2022-07-20] MEDS: quetiapine 100mg tablet PO SCH (19:42)
[2022-07-20] MEDS: prazosin 1mg capsule PO SCH (19:43)
[2022-07-20 20:00] VITALS: BP 135/89
--- NOTE | 2022-07-21 01:57 | NUR ---
Nursing Progress Note: Problem: Pt on a 5150 for DTS. Pt reports the devil is talking to him telling him to commit suicide and he plans to overdose on Fentanyl. Interventions: Provided 1:1 assessment with therapeutic communication and active listening; Provided medication administration/education/monitoring; Provided PRN's as requested; Encouraged participation of outside group activity; Observed pt tearful; Monitored and Maintained Q 15min safety checks. Response: Patient in hallway at shift change. Patient asked for Tylenol for ankle pain and a nicotine lozenge. Patient reports that he is on a vegan diet and needs to walk in the hallway to burn calories. The patient states that he had a good day and felt very awake. The patient began to walk in the hallway and perseverate on not eating meat and losing weight. The patient had some cheese and then took evening meds w/o complications. The patient went to bed shortly after. Plan : Pt. is not eating nor drinking and needs crisis intervention and medication titration. Pt. wants to go to the [facility] and working with SS for that.
[2022-07-21] MEDS: haloperidol 5mg tablet PO SCH ×4 (07:36→20:06)
[2022-07-21] MEDS: QUEtiapine 25mg tablet PO SCH ×3 (07:36→20:05)
[2022-07-21] MEDS: LORazepam 1 MG tablet PO SCH ×4 (07:36→20:06)
[2022-07-21] MEDS: docusate sod 100mg capsule PO SCH (07:36)
[2022-07-21] MEDS: benztropine 1mg tablet PO SCH ×2 (07:36→20:06)
[2022-07-21] MEDS: divalproex 250mg tablet, delayed-release PO SCH ×2 (07:36→20:06)
[2022-07-21] MEDS: buprenorphine/naloxone 2-0.5mg sublingual tablet SL SCH (07:36)
[2022-07-21] MEDS: ibuprofen tablet 400 MG TABLET PO SCH ×3 (07:36→17:32)
[2022-07-21] MEDS: nicotine 21mg patch - 24 hr TD SCH (07:37)
[2022-07-21 08:00] VITALS: BP 112/66
[2022-07-21] MEDS: acetaminophen 325mg tablet PO PRN ×2 (10:24→14:53)
--- NOTE | 2022-07-21 16:35 | NUR ---
NURSING PROGRESS NOTE Problem: Pt on a 5150 for DTS. Pt reports the devil is talking to him telling him to commit suicide and he plans to overdose on Fentanyl. Interventions: Maintained a safe and supportive environment, administered medication per orders with no adverse side effects, provided clear and simple instructions, monitored pain and need for intervention, provided redirection as needed, and maintained Q 15min safety checks Response: Received patient sleeping at shift change. Pt woke and requested his medication and took without issue. Pt reports sleeping well. Pt reported right leg pain radiating into his foot. Pt receives scheduled Motrin and PRN Tylenol, with good results. Pt was pretty quiet today, paced unit most of the morning. He took a long nap after lunch. Pt reports feeling sad. I miss my mom. Pt had no behavioral outbursts today. He engages with staff appropriately. His affect is restricted but brightens at times. Plan : Providers report patient is at baseline and awaiting placement. SW are working with [facility] to arrange placement.
[2022-07-21 20:00] VITALS: BP 103/62
[2022-07-21] MEDS: quetiapine 100mg tablet PO SCH (20:05)
[2022-07-21] MEDS: traZODone 50mg tablet PO SCH (20:06)
[2022-07-21] MEDS: prazosin 1mg capsule PO SCH (20:18)
--- NOTE | 2022-07-22 01:59 | NUR ---
Nursing Progress Note: Problem: Pt on a 5150 for DTS. Pt reports the devil is talking to him telling him to commit suicide and he plans to overdose on Fentanyl. Interventions: Provided 1:1 assessment with therapeutic communication and active listening; Provided medication administration/education/monitoring; Provided PRN's as requested; Encouraged participation of outside group activity; Observed pt tearful; Monitored and Maintained Q 15min safety checks. Response: The patient self isolated to his room most of the evening. The patient made minimal responses to questions stating, "I'm tired." The patient was given a fruit cocktail at snack time and took all evening meds w/o complications. The patient went to bed a short time later. Plan : Pt. is not eating nor drinking and needs crisis intervention and medication titration. Pt. wants to go to the [facility] and working with SS for that.
[2022-07-22 08:03] VITALS: BP 114/75
[2022-07-22] MEDS: benztropine 1mg tablet PO SCH ×2 (08:16→20:21)
[2022-07-22] MEDS: QUEtiapine 25mg tablet PO SCH ×3 (08:16→20:51)
[2022-07-22] MEDS: divalproex 250mg tablet, delayed-release PO SCH ×2 (08:16→20:20)
[2022-07-22] MEDS: docusate sod 100mg capsule PO SCH (08:16)
[2022-07-22] MEDS: LORazepam 1 MG tablet PO SCH ×3 (08:17→20:20)
[2022-07-22] MEDS: nicotine 21mg patch - 24 hr TD SCH (08:17)
[2022-07-22] MEDS: haloperidol 5mg tablet PO SCH ×3 (08:17→20:20)
[2022-07-22] MEDS: buprenorphine/naloxone 2-0.5mg sublingual tablet SL SCH (08:17)
[2022-07-22] MEDS: ibuprofen tablet 400 MG TABLET PO SCH ×3 (08:22→17:53)
[2022-07-22] MEDS: NICOTINE POLACRILEX 2 MG LOZENGE BC PRN (12:04)
[2022-07-22] MEDS: acetaminophen 325mg tablet PO PRN (13:18)
--- NOTE | 2022-07-22 17:50 | NUR ---
NURSING PROGRESS NOTE Problem: Pt on a 5150 for DTS. Pt reports the devil is talking to him telling him to commit suicide and he plans to overdose on Fentanyl. Interventions: Maintained a safe and supportive environment, administered medication per orders, provided clear and simple instructions, monitored pain and need for intervention, provided redirection as needed, and maintained Q 15min safety checks Response: Patient sleeping at shift change. Awoke for breakfast and medications were administered at bedside. Patient then slept until 12:00 and sat in group room until lunch. After lunch, patient went back to bed. Patient is complaining of feeling light headed and that he is tired. Reported this to Dr. Yeboah, who made some medication adjustments and ordered labs, ammonia and Depakote levels for tomorrow. Patient has not been pacing hallways and appears somewhat depressed or just not his usual self. Patient reportedly slept 9.25 hours last night, but has slept most of the day. Patient is cooperative with treatment. Patient does complain of right leg pain and is treated with routine Motrin and prn Tylenol. Patients friend was readmitted to the unit today, and patient was happy and smiling to see him and walked slowly in hallways with him, they are to be roommates. Plan : Providers report patient is at baseline and awaiting placement. SW are working with [place] [facility] to arrange placement.
[2022-07-22 20:00] VITALS: BP 138/77
[2022-07-22] MEDS: prazosin 1mg capsule PO SCH (20:19)
[2022-07-22] MEDS: quetiapine 100mg tablet PO SCH (20:20)
[2022-07-22] MEDS: traZODone 50mg tablet PO SCH (20:21)
--- NOTE | 2022-07-23 02:57 | NUR ---
NURSING PROGRESS NOTE Problem: Pt on a 5150 for DTS. Pt reports the devil is talking to him telling him to commit suicide and he plans to overdose on Fentanyl. Interventions: Maintained a safe and supportive environment, administered medication per orders, provided clear and simple instructions, monitored pain and need for intervention, provided redirection as needed, and maintained Q 15min safety checks Response: Pt was sleeping in bed at change of shift. Pt reports his day was "not good" but doesnt elaborate with further assessment. Pt appears depressed and declines to have snacks with peers. Pt is med compliant with HS meds and returns to sleep after med pass. Plan : Providers report patient is at baseline and awaiting placement. SW are working with [facility] to arrange placement.
[2022-07-23 07:28] VITALS: BP 116/70
[2022-07-23] MEDS: haloperidol 5mg tablet PO SCH ×3 (07:46→20:01)
[2022-07-23] MEDS: LORazepam 1 MG tablet PO SCH ×3 (07:46→20:01)
[2022-07-23] MEDS: ibuprofen tablet 400 MG TABLET PO SCH ×3 (07:47→18:19)
[2022-07-23] MEDS: benztropine 1mg tablet PO SCH ×2 (07:47→20:01)
[2022-07-23] MEDS: docusate sod 100mg capsule PO SCH (07:47)
[2022-07-23] MEDS: buprenorphine/naloxone 2-0.5mg sublingual tablet SL SCH (07:47)
[2022-07-23] MEDS: divalproex 250mg tablet, delayed-release PO SCH ×2 (07:47→20:01)
[2022-07-23] MEDS: QUEtiapine 25mg tablet PO SCH ×3 (07:48→20:00)
[2022-07-23] MEDS: nicotine 21mg patch - 24 hr TD SCH (07:48)
[2022-07-23 09:22] LABS: ALANINE AMINOTRANSFERASE 22 U/L (12-78); ALBUMIN 2.9 G/DL (3.4-5.0); ALBUMIN/GLOBULIN RATIO 0.9 (1.1-1.5); ALKALINE PHOSPHATASE 68 IU/L (46-116); ANION GAP 7 (8-16); ASPARTATE AMINO TRANSFERASE 22 U/L (10-37); BILIRUBIN,TOTAL 0.4 MG/DL (0.1-1.0); BLOOD UREA NITROGEN 15 MG/DL (7-18); BUN/CREATININE RATIO 17.9 (5.4-32.0); CALCIUM 8.6 MG/DL (8.5-10.1); CHLORIDE 103 MMOL/L (99-107); CREATININE 0.84 MG/DL (0.60-1.10); GLUCOSE 86 MG/DL (70-104); POTASSIUM 4.4 MMOL/L (3.5-5.1); SODIUM 142 MMOL/L (135-145); TOTAL CARBON DIOXIDE 31.8 MMOL/L (24-32); TOTAL PROTEIN 6.1 G/DL (6.4-8.2); VALPROATE 68 UG/ML (50-100); eGFR > 90 ML/MIN
[2022-07-23] MEDS: NICOTINE POLACRILEX 2 MG LOZENGE BC PRN (15:46)
[2022-07-23] MEDS: acetaminophen 325mg tablet PO PRN (15:46)
--- NOTE | 2022-07-23 17:51 | NUR ---
NURSING PROGRESS NOTE Problem: Pt on a 5150 for DTS. Pt reports the devil is talking to him telling him to commit suicide and he plans to overdose on Fentanyl. Interventions: Maintained a safe and supportive environment, administered medication per orders, provided clear and simple instructions, monitored pain and need for intervention, provided redirection as needed, and maintained Q 15min safety checks Response: Received patient sleeping in bed at shift change. Patient awakens and takes his medications, then goes into the dining room for breakfast. Patient sits with his roommate and talks during breakfast, then returns to bed. Medications have been reduced by Dr. Yeboah and labs appear WNL. Patient states that he had weird dreams last night, and is tired this shift and sleeps much of the day. Patient takes routine Motrin and prn Tylenol for his right leg pain and left ankle pain. Patient has been cooperative and calm. No behavioral outbursts noted in the last two weeks. Plan : Providers report patient is at baseline and awaiting placement. SW are working with [facility] to arrange placement.
[2022-07-23] MEDS: prazosin 1mg capsule PO SCH (20:00)
[2022-07-23] MEDS: quetiapine 100mg tablet PO SCH (20:00)
[2022-07-23] MEDS: traZODone 50mg tablet PO SCH (20:01)
[2022-07-23 20:44] VITALS: BP 126/76
--- NOTE | 2022-07-23 21:54 | NUR ---
NURSING PROGRESS NOTE Problem: Pt on a 5150 for DTS. Pt reports the devil is talking to him telling him to commit suicide and he plans to overdose on Fentanyl. Interventions: Maintained a safe and supportive environment, administered medication per orders, provided clear and simple instructions, monitored pain and need for intervention, provided redirection as needed, and maintained Q 15min safety checks Response: Pt was sleeping in bed at change of shift. Pt states his day was good. Pt denies a/vh. Pt c/o feeling tired and "sleeping way too much...did they give me more meds?" Pt had a snack and returned to sleep after HS meds. Plan : Providers report patient is at baseline and awaiting placement. SW are working with [facility] to arrange placement. Addendum: 07/24/22 at 0138 by Maty Kirkland RN Pt woke up stated "Im freaking out, I feel like Im talking to my mom in my head." Pt was given prn clonazepam and returned to bed.
[2022-07-24] MEDS: clonazePAM 1mg tablet PO PRN (01:35)
--- NOTE | 2022-07-24 07:28 | NUR ---
Reassessment: Pt continues eating well on Vegetarian diet, documented with mostly 100% PO intake while receiving double protein TID. LBM 07/23, receiving routine bowel care with PRN bowel care available. No nutrition intervention implemented at this time. Will continue to follow. Recommendations: 1) Continue Vegetarian diet per pt request 2) Double protein TID 3) Bowel care PRN 4) Weekly scaled weights Addendum: 07/24/22 at [address] Amended: Links added.
[2022-07-24 08:00] VITALS: BP 115/74
[2022-07-24] MEDS: divalproex 250mg tablet, delayed-release PO SCH ×2 (08:00→20:37)
[2022-07-24] MEDS: ibuprofen tablet 400 MG TABLET PO SCH (08:04)
[2022-07-24] MEDS: haloperidol 5mg tablet PO SCH ×3 (08:04→20:36)
[2022-07-24] MEDS: QUEtiapine 25mg tablet PO SCH ×3 (08:04→20:37)
[2022-07-24] MEDS: benztropine 1mg tablet PO SCH ×2 (08:04→20:37)
[2022-07-24] MEDS: LORazepam 1 MG tablet PO SCH ×3 (08:04→20:36)
[2022-07-24] MEDS: buprenorphine/naloxone 2-0.5mg sublingual tablet SL SCH (08:05)
[2022-07-24] MEDS: docusate sod 100mg capsule PO SCH (08:05)
[2022-07-24] MEDS: nicotine 21mg patch - 24 hr TD SCH (08:16)
--- NOTE | 2022-07-24 15:24 | NUR ---
Nursing Progress Note Problem: Per 5150 pt. is here for SA by OD on street drugs after command hallucinations telling him to do so. Pt. states that he took "Fentanyl, black china, meth, 8 ball" in suicide attempt. Pt. states he feels hopeless. Pt. is also delusional, stating, "they won't give me my billion dollars". Pt. states, "I tried killing myself because Im a free michelle. They dont love me but I love them. Yes I do." Interventions: 1:1 assessment, medication administration/education/monitoring, therapeutic conversation, active listening, ensured contract for safety, behavior monitoring and intervention as needed; reality orientation, provided distraction, redirection, encouragement, positive reinforcement, and Q15 minute safety checks. Response: Pt was up for breakfast and cooperative with medication. Per this morning's report, pt has had increased somnolence, has been slurring his words more and decreased LOC. Noted recent labs with an elevated ammonia level. Held am Depakote. Upon later review of his chart discovered that ammonia level had previously been higher and was trending down. Notified Dr Yeboah that Depakote was held this morning. Dr Yeboah instructed to continue giving the Depakote at the decreased dose he had ordered. Pt's routine Motrin was changed to PRN. Pt napped after breakfast. Pt expressed feeling anxious about when he will be placed somewhere. Pt showered immediately after breakfast. Pt had notable increased slurring after morning medications including Suboxone. After lunch, pt reported to this nurse that he had been listening to the radio headphones and he heard someone on the radio say, "If you want to kill yourself, I'll help you." Difficult to determine it he really heard this, if it was a hallucination or a delusion of reference. Pt contracts for safety. When went to give pt his 1500 medications, pt somewhat angrily asked, "why do I need to take this? I'm sitting here talking to myself." Pt went on to mumble/slur something like, "I wake up talking to myself in a dream and then I'm talking to myself outside of the dream." Pt did take the medication. Pt socializes with select peers and staff. Pt paces in the hallway listening to the radio headphones. Plan: Crisis interruption and stabilization in a safe and therapeutic environment. Pt is on a TCON. Pt is awaiting for his county to arrange a court date. Addendum: 07/24/22 at 1543 by Fallon Melgoza RN ([place]) Pt reported that he felt tired today because he dreams about devils and demons every night.
--- NOTE | 2022-07-24 16:39 | NUR ---
Pt removed his nicotine patch and handed it to this nurse.
[2022-07-24 20:00] VITALS: BP 118/72
[2022-07-24] MEDS: prazosin 1mg capsule PO SCH (20:36)
[2022-07-24] MEDS: traZODone 50mg tablet PO SCH (20:37)
[2022-07-24] MEDS: quetiapine 100mg tablet PO SCH (20:37)
--- NOTE | 2022-07-24 23:33 | NUR ---
Nursing Progress Note Christophe Problem: Per 5150 pt. is here for SA by OD on street drugs after command hallucinations telling him to do so. Pt. states that he took "Fentanyl, black china, meth, 8 ball" in suicide attempt. Pt. states he feels hopeless. Pt. is also delusional, stating, "they won't give me my billion dollars". Pt. states, "I tried killing myself because Im a free michelle. They dont love me but I love them. Yes I do." Interventions: 1:1 assessment, medication administration/education/monitoring, therapeutic conversation, active listening, ensured contract for safety, behavior monitoring and intervention as needed; reality orientation, provided distraction, redirection, encouragement, positive reinforcement, and Q15 minute safety checks. Response: Pt sleeping at change of shift. Woke pt up for HS medications, pt somewhat drowsy asking I have to take more medications. Denies MH symptoms at this time. Pt requested a snack which was provided and went back to sleep. Plan: Crisis interruption and stabilization in a safe and therapeutic environment. Pt is on a TCON. Pt is awaiting for his county to arrange a court date.
[2022-07-25 07:21] VITALS: BP 96/66
[2022-07-25] MEDS: buprenorphine/naloxone 2-0.5mg sublingual tablet SL SCH (08:18)
[2022-07-25] MEDS: LORazepam 1 MG tablet PO SCH ×3 (08:18→20:29)
[2022-07-25] MEDS: QUEtiapine 25mg tablet PO SCH ×3 (08:18→20:29)
[2022-07-25] MEDS: divalproex 250mg tablet, delayed-release PO SCH ×2 (08:18→20:27)
[2022-07-25] MEDS: haloperidol 5mg tablet PO SCH ×3 (08:18→20:28)
[2022-07-25] MEDS: docusate sod 100mg capsule PO SCH (08:19)
[2022-07-25] MEDS: benztropine 1mg tablet PO SCH ×2 (08:19→20:28)
[2022-07-25] MEDS: nicotine 21mg patch - 24 hr TD SCH (08:59)
[2022-07-25] MEDS: acetaminophen 325mg tablet PO PRN ×2 (12:15→16:25)
[2022-07-25] MEDS: NICOTINE POLACRILEX 2 MG LOZENGE BC PRN ×2 (14:08→16:55)
[2022-07-25] MEDS: ibuprofen tablet 400 MG TABLET PO PRN (14:59)
--- NOTE | 2022-07-25 15:29 | NUR ---
PLACEMENT UPDATE Sent updated notes to [facility] for placement purposes. JOEL Casanova
[2022-07-25] MEDS: haloperidol 5mg tablet PO PRN (15:55)
[2022-07-25] MEDS: clonazePAM 1mg tablet PO PRN (15:55)
--- NOTE | 2022-07-25 17:55 | NUR ---
Nursing Progress Note Problem: Per 5150 pt. is here for SA by OD on street drugs after command hallucinations telling him to do so. Pt. states that he took "Fentanyl, black china, meth, 8 ball" in suicide attempt. Pt. states he feels hopeless. Pt. is also delusional, stating, "they won't give me my billion dollars". Pt. states, "I tried killing myself because Im a free michelle. They dont love me but I love them. Yes I do." Interventions: 1:1 assessment, medication administration/education/monitoring, therapeutic conversation, active listening, ensured contract for safety, behavior monitoring and intervention as needed; reality orientation, provided distraction, redirection, encouragement, positive reinforcement, and Q15 minute safety checks. Response: RN received pt. asleep in bed at start of shift. Pt. awoke for breakfast and took all medications. 1:1 done at bedside, pt. denies SI/HI, denies auditory hallucinations but reports seeing demons. Pt. continues to perseverate on discharge, asking, Do you know how much longer I am going to be here. Pt. informed that there is a process to getting conserved and placed and he need to be patient. At noon pt. began to become agitated, stating, I just cant take it any longer, I need to know when Im going. Pt. given 1300 dose of Seroquel 100mg with moderate effect. Pt. observed pacing hallway and listening to headphones. Pt. is also social with his roommate. Pt. c/o left knee pain and given icepack and Tylenol 650mg po with moderate effect. Pt. reported that another pt. spoke to him in a rude manner and was having difficulty calming down. Pt. asked for a PRN and received Haldol 5mg and Klonopin 2mg po with good effect. Pt. c/o left foot pain and received Tylenol 650mg po with good effect. Pt. removed nicotine patch and given to this RN to dispose of. Pt. went to [facility]. Plan: Crisis interruption and stabilization in a safe and therapeutic environment. Pt is on a TCON. Pt is awaiting for his county to arrange a court date.
[2022-07-25 20:00] VITALS: BP 98/50
[2022-07-25] MEDS: prazosin 1mg capsule PO SCH (20:28)
[2022-07-25] MEDS: quetiapine 100mg tablet PO SCH (20:29)
[2022-07-25] MEDS: traZODone 50mg tablet PO SCH (20:31)
--- NOTE | 2022-07-26 05:17 | NUR ---
Nursing Progress Note Problem: Per 5150 pt. is here for SA by OD on street drugs after command hallucinations telling him to do so. Pt. states that he took "Fentanyl, black china, meth, 8 ball" in suicide attempt. Pt. states he feels hopeless. Pt. is also delusional, stating, "they won't give me my billion dollars". Pt. states, "I tried killing myself because Im a free michelle. They dont love me but I love them. Yes I do." Interventions: 1:1 assessment, medication administration/education/monitoring, therapeutic conversation, active listening, ensured contract for safety, behavior monitoring and intervention as needed; reality orientation, provided distraction, redirection, encouragement, positive reinforcement, and Q15 minute safety checks. Response: Pt resting in bed at start of shift. Pt denies wanting to harm self or others. Pt denies hearing or seeing things. Pt states I feel like Im losing my memory, its more like a dream. Like when I am having a conversation like right now and then go to sleep and wake up its like a dream the conversation. HS meds administered. Offered evening snack and pt states no thank you Im on a diet. Pt had a good night and slept well. Plan: Crisis interruption and stabilization in a safe and therapeutic environment. Pt is on a TCON. Pt is awaiting for his county to arrange a court date.
[2022-07-26 08:00] VITALS: BP 100/58
[2022-07-26] MEDS: ibuprofen tablet 400 MG TABLET PO PRN ×2 (08:11→13:28)
[2022-07-26] MEDS: LORazepam 1 MG tablet PO SCH ×3 (08:11→20:07)
[2022-07-26] MEDS: docusate sod 100mg capsule PO SCH (08:11)
[2022-07-26] MEDS: haloperidol 5mg tablet PO SCH ×3 (08:11→20:07)
[2022-07-26] MEDS: benztropine 1mg tablet PO SCH ×2 (08:12→20:06)
[2022-07-26] MEDS: divalproex 250mg tablet, delayed-release PO SCH ×2 (08:12→20:07)
[2022-07-26] MEDS: QUEtiapine 25mg tablet PO SCH ×3 (08:12→20:05)
[2022-07-26] MEDS: buprenorphine/naloxone 2-0.5mg sublingual tablet SL SCH (08:12)
[2022-07-26] MEDS: nicotine 21mg patch - 24 hr TD SCH (08:16)
[2022-07-26] MEDS: acetaminophen 325mg tablet PO PRN ×2 (10:20→18:09)
[2022-07-26] MEDS: clonazePAM 1mg tablet PO PRN (13:37)
--- NOTE | 2022-07-26 16:35 | NUR ---
Nursing Progress Note Problem: Per 5150 pt. is here for SA by OD on street drugs after command hallucinations telling him to do so. Pt. states that he took "Fentanyl, black china, meth, 8 ball" in suicide attempt. Pt. states he feels hopeless. Pt. is also delusional, stating, "they won't give me my billion dollars". Pt. states, "I tried killing myself because Im a free michelle. They dont love me but I love them. Yes I do." Interventions: 1:1 assessment, medication administration/education/monitoring, therapeutic conversation, active listening, ensured contract for safety, behavior monitoring and intervention as needed; reality orientation, provided distraction, redirection, encouragement, positive reinforcement, and Q15 minute safety checks. Response: Pt was up before breakfast and cooperative with medications. Pt c/o 4/10 right ear pain and was given PRN Ibuprofen 400 mg at 0811 with good effect. Pt had a notable increase in slurring his words after taking morning medications including Suboxone as well as pinpoint pupils. Pt c/o left knee pain 6/10 at 1020 and was given PRN Tylenol 650 mg with good effect. Pt stated that he did a $20 line of meth and hurt his knee, it popped out of socket and he popped it back in. Pt requested PRN Klonopin 2 mg at 1337 for increased anxiety. Pt stated that he knows he has to stay calm and stay out of trouble so he can be placed somewhere. Pt expressed that he feels his home formerly [facility] social work case manager is not responsive because she doesn't like his mom. Pt states that she doesn't believe he is Bipolar but that it is all from drugs and blames his mom. Pt reports that he graduated at 6th grade level for reading and math. Pt states that he has always been on the spectrum. Pt expressed remorse that he did not cry at his dad's , everyone else did but he didn't. Pt states that thinking about this made him feel suicidal in the past. Pt is restless and bored, he paces the unit, he listens to radio headphones, he socializes with staff and his roommate. Pt denies SI/HI/AH/VH. Plan: Crisis interruption and stabilization in a safe and therapeutic environment. Pt is on a TCON. Pt is awaiting for his county to arrange a court date. Addendum: 07/26/22 at 1645 by Fallon Melgoza RN ([place]) Pt napped after morning meds, when he woke up pt stated that he did not remember who his nurse was and did not remember being given his meds.
[2022-07-26] MEDS: NICOTINE POLACRILEX 2 MG LOZENGE BC PRN (18:09)
[2022-07-26 19:00] VITALS: BP 120/70
[2022-07-26] MEDS: quetiapine 100mg tablet PO SCH (20:06)
[2022-07-26] MEDS: prazosin 1mg capsule PO SCH (20:06)
[2022-07-26] MEDS: traZODone 50mg tablet PO SCH (20:07)
--- NOTE | 2022-07-27 05:07 | NUR ---
Nursing Progress Note Problem: Per 5150 pt. is here for SA by OD on street drugs after command hallucinations telling him to do so. Pt. states that he took "Fentanyl, black china, meth, 8 ball" in suicide attempt. Pt. states he feels hopeless. Pt. is also delusional, stating, "they won't give me my billion dollars". Pt. states, "I tried killing myself because Im a free michelle. They dont love me but I love them. Yes I do." Interventions: 1:1 assessment, medication administration/education/monitoring, therapeutic conversation, active listening, ensured contract for safety, behavior monitoring and intervention as needed; reality orientation, provided distraction, redirection, encouragement, positive reinforcement, and Q15 minute safety checks. Response: Patient was observed standing in hallway talking to other patient in the hallway. Patient went back and forth between his room and community room. Patient came up to nurse to tell them how much weight he has already lost. Patient requested to have his medications early so he can get back to bed. Patient agreed to participate in snack today and took all night medications without issue. Patient paced the wagner for a little while before heading to bed. Plan: Crisis interruption and stabilization in a safe and therapeutic environment. Pt is on a TCON. Pt is awaiting for his county to arrange a court date.
[2022-07-27] MEDS: nicotine 21mg patch - 24 hr TD SCH (07:56)
[2022-07-27] MEDS: divalproex 250mg tablet, delayed-release PO SCH ×2 (07:56→20:11)
[2022-07-27] MEDS: buprenorphine/naloxone 2-0.5mg sublingual tablet SL SCH (07:56)
[2022-07-27] MEDS: benztropine 1mg tablet PO SCH ×2 (07:56→20:12)
[2022-07-27] MEDS: LORazepam 1 MG tablet PO SCH ×3 (07:56→20:12)
[2022-07-27] MEDS: haloperidol 5mg tablet PO SCH ×3 (07:56→20:11)
[2022-07-27] MEDS: QUEtiapine 25mg tablet PO SCH ×3 (07:56→20:12)
[2022-07-27] MEDS: docusate sod 100mg capsule PO SCH (07:57)
[2022-07-27 08:00] VITALS: BP 152/62
[2022-07-27] MEDS: acetaminophen 325mg tablet PO PRN ×2 (10:50→16:11)
--- NOTE | 2022-07-27 17:39 | NUR ---
Nursing Progress Note Problem: Per 5150 pt. is here for SA by OD on street drugs after command hallucinations telling him to do so. Pt. states that he took "Fentanyl, black china, meth, 8 ball" in suicide attempt. Pt. states he feels hopeless. Pt. is also delusional, stating, "they won't give me my billion dollars". Pt. states, "I tried killing myself because Im a free michelle. They dont love me but I love them. Yes I do." Interventions: 1:1 assessment, medication administration/education/monitoring, therapeutic conversation, active listening, ensured contract for safety, behavior monitoring and intervention as needed; reality orientation, provided distraction, redirection, encouragement, positive reinforcement, and Q15 minute safety checks. Response: Patient up early for breakfast and AM meds. He is calm and cooperative with nursing, and remains compliant with all medications. Patient is present for all meals and snacks through the day. He spends the day pacing the halls, usually with headphones on. Patient is working hard at staying calm on the unit, so he can be placed. He knows that he has evil thoughts, but is trying to reverse that, and he wants to be more Anabaptist oriented. Patient has been here a long time, and does not believe his PG is trying to help get him placed. He needs a lot of positive encouragement that is helpful to him, and he responds well. Plan: Crisis interruption and stabilization in a safe and therapeutic environment. Pt is on a TCON. Pt is awaiting for his county to arrange a court date.
[2022-07-27 19:00] VITALS: BP 140/80
[2022-07-27] MEDS: ibuprofen tablet 400 MG TABLET PO PRN (19:06)
[2022-07-27] MEDS: prazosin 1mg capsule PO SCH (20:12)
[2022-07-27] MEDS: quetiapine 100mg tablet PO SCH (20:12)
[2022-07-27] MEDS: traZODone 50mg tablet PO SCH (20:12)
[2022-07-28 00:39] VITALS: BP 152/96
[2022-07-28] MEDS: ondansetron 4mg rapidly disintigrating tab PO PRN (00:55)
--- NOTE | 2022-07-28 05:27 | NUR ---
Nursing Progress Note Problem: Per 5150 pt. is here for SA by OD on street drugs after command hallucinations telling him to do so. Pt. states that he took "Fentanyl, black china, meth, 8 ball" in suicide attempt. Pt. states he feels hopeless. Pt. is also delusional, stating, "they won't give me my billion dollars". Pt. states, "I tried killing myself because Im a free michelle. They dont love me but I love them. Yes I do." Interventions: 1:1 assessment, medication administration/education/monitoring, therapeutic conversation, active listening, ensured contract for safety, behavior monitoring and intervention as needed; reality orientation, provided distraction, redirection, encouragement, positive reinforcement, and Q15 minute safety checks. Response: Patient is pleasant and cooperative with care; compliant with medication. PRN Motrin for hand pain and PRN Zofran provided. Patient reported removing his Nicotine prior to med pass. He denies SI, HI, A/VH; no apparent delusions were expressed this shift but some disorganized thought content. Patient social with staff and roommate, apologized to peer that he had an altercation with during previous shift and participated in HS snack prior to bed. He was observed sleeping and did not appear to be having difficulty; around 0030 patient was heard retching. Patient was found vomiting; no temperature and only c/o pain patient had reported was CUETO d/t vomiting. N/O received from Dr. Bingham for Zofran 4mg PO PRN Q4hrs; patient was provided one dose and has been sleeping with no apparent difficulties since. Plan: Crisis interruption and stabilization in a safe and therapeutic environment. Pt is on a TCON. Pt is awaiting for his county to arrange a court date.
[2022-07-28] MEDS: acetaminophen 325mg tablet PO PRN ×2 (06:55→11:32)
[2022-07-28] MEDS: nicotine 21mg patch - 24 hr TD SCH (07:15)
[2022-07-28] MEDS: buprenorphine/naloxone 2-0.5mg sublingual tablet SL SCH (07:15)
[2022-07-28] MEDS: divalproex 250mg tablet, delayed-release PO SCH ×2 (07:16→20:33)
[2022-07-28] MEDS: benztropine 1mg tablet PO SCH ×2 (07:16→20:33)
[2022-07-28] MEDS: haloperidol 5mg tablet PO SCH ×3 (07:16→20:33)
[2022-07-28] MEDS: QUEtiapine 25mg tablet PO SCH ×3 (07:16→20:33)
[2022-07-28 07:17] VITALS: BP 128/75
[2022-07-28] MEDS: docusate sod 100mg capsule PO SCH (07:17)
[2022-07-28] MEDS: LORazepam 1 MG tablet PO SCH ×3 (07:17→20:37)
[2022-07-28] MEDS: ibuprofen tablet 400 MG TABLET PO PRN ×2 (08:26→13:16)
[2022-07-28] MEDS: NICOTINE POLACRILEX 2 MG LOZENGE BC PRN (13:12)
[2022-07-28] MEDS: clonazePAM 1mg tablet PO PRN (14:35)
--- NOTE | 2022-07-28 17:17 | NUR ---
Nursing Progress Note Problem: Per 5150 pt. is here for SA by OD on street drugs after command hallucinations telling him to do so. Pt. states that he took "Fentanyl, black china, meth, 8 ball" in suicide attempt. Pt. states he feels hopeless. Pt. is also delusional, stating, "they won't give me my billion dollars". Pt. states, "I tried killing myself because Im a free michelle. They dont love me but I love them. Yes I do." Interventions: 1:1 assessment, medication administration/education/monitoring, therapeutic conversation, active listening, ensured contract for safety, behavior monitoring and intervention as needed; reality orientation, provided distraction, redirection, encouragement, positive reinforcement, and Q15 minute safety checks. Response: Patient awake at shift change. Patient is complaining that his teeth hurt, Tylenol given without effectiveness, then administered Motrin. Patient takes his medications as directed. Speech is slightly pressured and thought processes are a little disorganized. Patient paces hallways with headphones on. Patient is hyperverbal after medications with staff. Talks a lot about Shashi and the devil. Patient states that he is happy, and is now walking hallways rapping to music. Patient informed ROSSI Gabriel, that he felt like he was on meth, as she noted the last two days he has been acting hypomanic. Patient has been pacing the hallways nonstop and complaining of left ankle pain and wanted Tylenol before it was due, RN requested that he go lay down. Patient started yelling in the hallways, stating that he was trying to lose weight and would not go lay down. 1500 meds of Ativan and Haldol administered with Klonopin. Patient apologized after explosive episode. At 16:45, patient came to RN and asked if he had any scheduled meds, stated that he felt stressed and hopeless. He then went to lie down on his bed. Plan: Crisis interruption and stabilization in a safe and therapeutic environment. Pt is on a TCON. Pt is awaiting for his county to arrange a court date.
[2022-07-28 19:26] VITALS: BP 111/61
[2022-07-28] MEDS: prazosin 1mg capsule PO SCH (20:32)
[2022-07-28] MEDS: traZODone 50mg tablet PO SCH (20:33)
[2022-07-28] MEDS: quetiapine 100mg tablet PO SCH (20:33)
--- NOTE | 2022-07-29 04:52 | NUR ---
Nursing Progress Note Problem: Per 5150 pt. is here for SA by OD on street drugs after command hallucinations telling him to do so. Pt. states that he took "Fentanyl, black china, meth, 8 ball" in suicide attempt. Pt. states he feels hopeless. Pt. is also delusional, stating, "they won't give me my billion dollars". Pt. states, "I tried killing myself because Im a free michelle. They dont love me but I love them. Yes I do." Interventions: 1:1 assessment, medication administration/education/monitoring, therapeutic conversation, active listening, ensured contract for safety, behavior monitoring and intervention as needed; reality orientation, provided distraction, redirection, encouragement, positive reinforcement, and Q15 minute safety checks. Response: Patient is pleasant and cooperative with care; compliant with medication. He reported removing Nicotine patch prior to automobile service writer attempting to remove it. Patient reported feeling "not great but better." Denies N/V this shift. No negative behaviors presented. He denies SI, HI, A/VH; no apparent delusions expressed. Patient remained in bed throughout the shift; observed sleeping and does not appear to be having difficulty. Plan: Crisis interruption and stabilization in a safe and therapeutic environment. Pt is on a TCON. Pt is awaiting for his county to arrange a court date.
[2022-07-29] MEDS: divalproex 250mg tablet, delayed-release PO SCH ×2 (07:17→20:37)
[2022-07-29] MEDS: nicotine 21mg patch - 24 hr TD SCH (07:17)
[2022-07-29] MEDS: QUEtiapine 25mg tablet PO SCH ×3 (07:17→20:38)
[2022-07-29] MEDS: buprenorphine/naloxone 2-0.5mg sublingual tablet SL SCH (07:18)
[2022-07-29] MEDS: benztropine 1mg tablet PO SCH ×2 (07:18→20:37)
[2022-07-29] MEDS: haloperidol 5mg tablet PO SCH ×3 (07:18→20:38)
[2022-07-29] MEDS: LORazepam 1 MG tablet PO SCH ×3 (07:18→20:38)
[2022-07-29] MEDS: docusate sod 100mg capsule PO SCH (07:18)
[2022-07-29 07:48] VITALS: BP 133/71
[2022-07-29] MEDS: acetaminophen 325mg tablet PO PRN (10:05)
[2022-07-29] MEDS: ibuprofen tablet 400 MG TABLET PO PRN ×2 (12:13→19:07)
--- NOTE | 2022-07-29 17:22 | NUR ---
Nursing Progress Note Problem: Per 5150 pt. is here for SA by OD on street drugs after command hallucinations telling him to do so. Pt. states that he took "Fentanyl, black china, meth, 8 ball" in suicide attempt. Pt. states he feels hopeless. Pt. is also delusional, stating, "they won't give me my billion dollars". Pt. states, "I tried killing myself because Im a free michelle. They dont love me but I love them. Yes I do." Interventions: 1:1 assessment, medication administration/education/monitoring, therapeutic conversation, active listening, ensured contract for safety, behavior monitoring and intervention as needed; reality orientation, provided distraction, redirection, encouragement, positive reinforcement, and Q15 minute safety checks. Response: Patient was up for breakfast this morning. He ate and accepted his medications. Patient has been walking a lot. At one time he gained a lot of weight from medications, and doesnt want to do it again. Also, patient states that as a child he was fat, and was ridiculed and bullied because of it. Its understood why he doesnt want to go there again. He has been c/o tooth pain form a cavity, and gets little relief from Tylenol. His Motrin helps some. Patient is doing everything he can to be happy and not hopeless. Headphones and music help. Plan: Crisis interruption and stabilization in a safe and therapeutic environment. Pt is on a TCON. Pt is awaiting for his county to arrange a court date.
[2022-07-29] MEDS: clonazePAM 1mg tablet PO PRN (18:39)
[2022-07-29] MEDS: NICOTINE POLACRILEX 2 MG LOZENGE BC PRN (18:39)
[2022-07-29 19:47] VITALS: BP 147/89
[2022-07-29] MEDS: prazosin 1mg capsule PO SCH (20:38)
[2022-07-29] MEDS: quetiapine 100mg tablet PO SCH (20:38)
[2022-07-29] MEDS: traZODone 50mg tablet PO SCH (20:38)
--- NOTE | 2022-07-30 03:38 | NUR ---
Nursing Progress Note Problem: Per 5150 pt. is here for SA by OD on street drugs after command hallucinations telling him to do so. Pt. states that he took "Fentanyl, black china, meth, 8 ball" in suicide attempt. Pt. states he feels hopeless. Pt. is also delusional, stating, "they won't give me my billion dollars". Pt. states, "I tried killing myself because Im a free michelle. They dont love me but I love them. Yes I do." Interventions: 1:1 assessment, medication administration/education/monitoring, therapeutic conversation, active listening, ensured contract for safety, behavior monitoring and intervention as needed; reality orientation, provided distraction, redirection, encouragement, positive reinforcement, and Q15 minute safety checks. Response: Patient is pleasant and cooperative with care; compliant with medication. PRN Clonazepam and Motrin provided. Reported he removed his Nicotine patch. Patient boisterous this shift: social, singing and joking with staff. He is hyperreligious and preoccupied with losing weight. Patient was overheard talking about his brother murdering people; he was easily redirected. He is observed sleeping and does not appear to be having difficulty. Plan: Crisis interruption and stabilization in a safe and therapeutic environment. Pt is on a TCON. Pt is awaiting for his county to arrange a court date.
[2022-07-30] MEDS: QUEtiapine 25mg tablet PO SCH ×3 (07:14→21:04)
[2022-07-30] MEDS: divalproex 250mg tablet, delayed-release PO SCH ×2 (07:14→21:05)
[2022-07-30] MEDS: haloperidol 5mg tablet PO SCH ×3 (07:14→21:05)
[2022-07-30] MEDS: buprenorphine/naloxone 2-0.5mg sublingual tablet SL SCH (07:14)
[2022-07-30] MEDS: LORazepam 1 MG tablet PO SCH ×3 (07:14→21:05)
[2022-07-30] MEDS: benztropine 1mg tablet PO SCH ×2 (07:14→21:04)
[2022-07-30] MEDS: docusate sod 100mg capsule PO SCH (07:14)
[2022-07-30] MEDS: nicotine 21mg patch - 24 hr TD SCH (07:21)
[2022-07-30 07:34] VITALS: BP 125/71
[2022-07-30] MEDS: acetaminophen 325mg tablet PO PRN ×2 (11:28→15:36)
[2022-07-30] MEDS: ibuprofen tablet 400 MG TABLET PO PRN (11:56)
[2022-07-30] MEDS: NICOTINE POLACRILEX 2 MG LOZENGE BC PRN (14:21)
[2022-07-30] MEDS: clonazePAM 1mg tablet PO PRN (15:54)
--- NOTE | 2022-07-30 18:03 | NUR ---
Nursing Progress Note Problem: Per 5150 pt. is here for SA by OD on street drugs after command hallucinations telling him to do so. Pt. states that he took "Fentanyl, black china, meth, 8 ball" in suicide attempt. Pt. states he feels hopeless. Pt. is also delusional, stating, "they won't give me my billion dollars". Pt. states, "I tried killing myself because Im a free michelle. They dont love me but I love them. Yes I do." Interventions: 1:1 assessment, medication administration/education/monitoring, therapeutic conversation, active listening, ensured contract for safety, behavior monitoring and intervention as needed; reality orientation, provided distraction, redirection, encouragement, positive reinforcement, and Q15 minute safety checks. Response: RN received pt. asleep in bed at start of shift. Pt. awoke for breakfast and took all medications. Pt. went back to sleep after breakfast. Pt. awoke mid-morning and requested headphones. Pt. observed pacing the unit and listening to music. Pt. apologized to female RN for his behavior in previous days. Pt. states, I kept hounding you guys about my placement, but I realize you guys dont have anything to do with that. Pt. continued to pace throughout the day, stating, Im trying to loose weight. Pt. weighed himself and became anxious, stating, Im going to freak out, I havent lost any weight. Pt. requested anxiolytic and received Klonopin 2mg with good effect. Pt. started on Nyproxen for left ankle pain. Plan: Crisis interruption and stabilization in a safe and therapeutic environment. Pt is on a TCON. Pt is awaiting for his county to arrange a court date.
[2022-07-30 19:00] VITALS: BP 98/55
[2022-07-30 21:00] VITALS: BP 100/60
[2022-07-30] MEDS: prazosin 1mg capsule PO SCH (21:00)
[2022-07-30] MEDS: traZODone 50mg tablet PO SCH (21:04)
[2022-07-30] MEDS: quetiapine 100mg tablet PO SCH (21:04)
--- NOTE | 2022-07-31 03:26 | NUR ---
Nursing Progress Note Problem: Per 5150 pt. is here for SA by OD on street drugs after command hallucinations telling him to do so. Pt. states that he took "Fentanyl, black china, meth, 8 ball" in suicide attempt. Pt. states he feels hopeless. Pt. is also delusional, stating, "they won't give me my billion dollars". Pt. states, "I tried killing myself because Im a free michelle. They dont love me but I love them. Yes I do." Interventions: 1:1 assessment, medication administration/education/monitoring, therapeutic conversation, active listening, ensured contract for safety, behavior monitoring and intervention as needed; reality orientation, provided distraction, redirection, encouragement, positive reinforcement, and Q15 minute safety checks. Response: Patient is pleasant and cooperative with care; compliant with medication. Prazosin was held for decreased BP. He reported he removed Nicotine patch. Patient denies SI, HI, A/VH; continues to perseverate on weight loss. Patient isolated to his room this shift and did not participate in HS snack; observed sleeping and does not appear to be having difficulty. Plan: Crisis interruption and stabilization in a safe and therapeutic environment. Pt is on a TCON. Pt is awaiting for his county to arrange a court date.
[2022-07-31 07:50] VITALS: BP 108/52
[2022-07-31] MEDS: docusate sod 100mg capsule PO SCH (08:20)
[2022-07-31] MEDS: QUEtiapine 25mg tablet PO SCH ×3 (08:21→20:42)
[2022-07-31] MEDS: divalproex 250mg tablet, delayed-release PO SCH ×2 (08:21→20:42)
[2022-07-31] MEDS: haloperidol 5mg tablet PO SCH ×3 (08:21→20:42)
[2022-07-31] MEDS: LORazepam 1 MG tablet PO SCH ×3 (08:21→20:42)
[2022-07-31] MEDS: buprenorphine/naloxone 2-0.5mg sublingual tablet SL SCH (08:21)
[2022-07-31] MEDS: benztropine 1mg tablet PO SCH ×2 (08:21→20:42)
[2022-07-31] MEDS: nicotine 21mg patch - 24 hr TD SCH (08:25)
[2022-07-31] MEDS: acetaminophen 325mg tablet PO PRN ×2 (09:21→14:02)
--- NOTE | 2022-07-31 12:51 | NUR ---
THERAPUETIC GROUP DESCRIPTION Daily therapeutic groups support [facility] crisis-recovery environment, and meet medical necessity given the acuity of client symptoms. Topic: self-soothing -- focusing on a happy and neutral thing (dream car, dream location, details of car). INTERVENTION Therapeutic communication, active listening, redirection as needed, peer support, validation by peers, coping skills and psychosocial education. Secondarily: alleviating and discouraging isolation. RESPONSE Client engaged in group, creating a collage of his dream car, dream location, and the number "33" which he states protects him because it is related to Shashi (age?). TREATMENT Until stable, client requires time in a safe and therapeutic environment employing multidisciplinary treatments, including therapeutic groups.
[2022-07-31] MEDS: clonazePAM 1mg tablet PO PRN ×2 (13:11→18:38)
--- NOTE | 2022-07-31 15:52 | NUR ---
Nursing Progress Note Problem: Per 5150 pt. is here for SA by OD on street drugs after command hallucinations telling him to do so. Pt. states that he took "Fentanyl, black china, meth, 8 ball" in suicide attempt. Pt. states he feels hopeless. Pt. is also delusional, stating, "they won't give me my billion dollars". Pt. states, "I tried killing myself because Im a free michelle. They dont love me but I love them. Yes I do." Interventions: 1:1 assessment, medication administration/education/monitoring, therapeutic conversation, active listening, ensured contract for safety, behavior monitoring and intervention as needed; reality orientation, provided distraction, redirection, limit setting, encouragement, positive reinforcement, and Q15 minute safety checks. Response: Pt was up for breakfast and cooperative with medications. Pt indicated that he was looking forward to eating some stuffing today as today is his "cheat day" for his diet. Pt requested that he start receiving cottage cheese and peaches on his lunch trays, diet modified to accommodate his request. Pt c/o 4/10 bilateral thigh pain this morning and asked for Tylenol which was given at 0921 with good effect, pt also received routine Naprosyn. He asked for Tylenol again for his legs at 1402. Pt became irritable before lunch. He was perseverating on a bald spot on the back of his head, making statements that the police caused it. He stated it was embarrassing, he didn't want any girls to see it. He then began perseverating on needing a new hat although he was wearing a perfectly good baseball cap. Verbal de-escalation, distraction, and redirection techniques utilized. Pt approached this nurse to ask for a "stress pill." Pt was medicated with PRN Klonopin 2 mg at 1311 with good effect. Plan: Crisis interruption and stabilization in a safe and therapeutic environment. Pt is on a TCON. Pt is awaiting for his county to arrange a court date.
[2022-07-31] MEDS: NICOTINE POLACRILEX 2 MG LOZENGE BC PRN (19:10)
[2022-07-31 20:00] VITALS: BP 110/73
[2022-07-31] MEDS: traZODone 50mg tablet PO SCH (20:42)
[2022-07-31] MEDS: quetiapine 100mg tablet PO SCH (20:42)
[2022-07-31] MEDS: prazosin 1mg capsule PO SCH (20:43)
--- NOTE | 2022-08-01 05:36 | NUR ---
Nursing Progress Note Problem: Per 5150 pt. is here for SA by OD on street drugs after command hallucinations telling him to do so. Pt. states that he took "Fentanyl, black china, meth, 8 ball" in suicide attempt. Pt. states he feels hopeless. Pt. is also delusional, stating, "they won't give me my billion dollars". Pt. states, "I tried killing myself because Im a free michelle. They dont love me but I love them. Yes I do." Interventions: 1:1 assessment, medication administration/education/monitoring, therapeutic conversation, active listening, ensured contract for safety, behavior monitoring and intervention as needed; reality orientation, provided distraction, redirection, encouragement, positive reinforcement, and Q15 minute safety checks. Response: Patient is pleasant and cooperative with care; compliant with medication. Patient was expressing agitation at the beginning of shift d/t peer making racial comments toward him. PRN Clonazepam provided. Patient was thankful with staff "giving advise" and "helping" him. No further stressor or acts of irritability expressed this shift. Patient reported removing his Nicotine patch. He is observed sleeping and does not appear to be having difficulty. Plan: Crisis interruption and stabilization in a safe and therapeutic environment. Pt is on a TCON. Pt is awaiting for his county to arrange a court date.
[2022-08-01 08:00] VITALS: BP 117/67
[2022-08-01] MEDS: benztropine 1mg tablet PO SCH ×2 (08:20→20:17)
[2022-08-01] MEDS: buprenorphine/naloxone 2-0.5mg sublingual tablet SL SCH (08:20)
[2022-08-01] MEDS: LORazepam 1 MG tablet PO SCH ×3 (08:20→20:18)
[2022-08-01] MEDS: divalproex 250mg tablet, delayed-release PO SCH ×2 (08:20→20:18)
[2022-08-01] MEDS: QUEtiapine 25mg tablet PO SCH ×3 (08:21→20:17)
[2022-08-01] MEDS: haloperidol 5mg tablet PO SCH ×3 (08:21→20:18)
[2022-08-01] MEDS: docusate sod 100mg capsule PO SCH (08:21)
[2022-08-01] MEDS: nicotine 21mg patch - 24 hr TD SCH (08:29)
--- NOTE | 2022-08-01 09:44 | NUR ---
F/u 08/01:: Pt continues eating well on Vegetarian diet, documented with mostly 100% PO intake while receiving double protein TID. COLT d/w RN regarding MVI supplementation if MD agreeable given vegetarian restriction. LBM 07/30 receiving routine colace. Will continue to follow. Recommendations: 1) Continue Vegetarian diet per pt request 2) Double protein TID 3) MVI or at least B12 supplementation given vegetarian restriction if physician agreeable 4) Bowel care PRN 5) Weekly scaled weights Addendum: 08/01/22 at [address] Amended: Links added.
[2022-08-01] MEDS: multivitamins, therapeutics tablet PO SCH (11:13)
[2022-08-01] MEDS: acetaminophen 325mg tablet PO PRN (11:46)
[2022-08-01] MEDS: NICOTINE POLACRILEX 2 MG LOZENGE BC PRN (16:09)
[2022-08-01] MEDS: clonazePAM 1mg tablet PO PRN (17:14)
--- NOTE | 2022-08-01 17:43 | NUR ---
Nursing Progress Note Problem: Per 5150 pt. is here for SA by OD on street drugs after command hallucinations telling him to do so. Pt. states that he took "Fentanyl, black china, meth, 8 ball" in suicide attempt. Pt. states he feels hopeless. Pt. is also delusional, stating, "they won't give me my billion dollars". Pt. states, "I tried killing myself because Im a free michelle. They dont love me but I love them. Yes I do." Interventions: 1:1 assessment, medication administration/education/monitoring, therapeutic conversation, active listening, ensured contract for safety, behavior monitoring and intervention as needed; reality orientation, provided distraction, redirection, encouragement, positive reinforcement, and Q15 minute safety checks. Response: RN received pt. asleep in bed at start of shift. Pt. awoke for breakfast and took all medications. Pt. went back to sleep after breakfast. Pt. awoke mid-morning and requested headphones. Pt. observed pacing the unit and listening to music. 1:1 done at bedside, pt. reports that he hopes he gets out soon, and feels depressed that he is still here. Pt. c/o left ankle pain and given Tylenol 650mg po x1 with moderate effect. Pt. c/o of anxiety in the afternoon and received scheduled 1500 dose of Ativan 1mg and Haldol 5mg po with moderate effect. In the evening pt. became anxious and received Klonopin 2mg with good effect. Plan: Crisis interruption and stabilization in a safe and therapeutic environment. Pt is on a TCON. Pt is awaiting for his county to arrange a court date.
[2022-08-01 19:51] VITALS: BP 101/63
[2022-08-01 20:10] VITALS: BP 115/64
[2022-08-01] MEDS: prazosin 1mg capsule PO SCH (20:18)
[2022-08-01] MEDS: quetiapine 100mg tablet PO SCH (20:18)
[2022-08-01] MEDS: traZODone 50mg tablet PO SCH (20:22)
--- NOTE | 2022-08-02 05:28 | NUR ---
Nursing Progress Note Problem: Per 5150 pt. is here for SA by OD on street drugs after command hallucinations telling him to do so. Pt. states that he took "Fentanyl, black china, meth, 8 ball" in suicide attempt. Pt. states he feels hopeless. Pt. is also delusional, stating, "they won't give me my billion dollars". Pt. states, "I tried killing myself because Im a free michelle. They dont love me but I love them. Yes I do." Interventions: 1:1 assessment, medication administration/education/monitoring, therapeutic conversation, active listening, ensured contract for safety, behavior monitoring and intervention as needed; reality orientation, provided distraction, redirection, encouragement, positive reinforcement, and Q15 minute safety checks. Response: Patient is pleasant and cooperative with care; compliant with medication. Patient reported removing his Nicotine patch. He denies SI, HI, A/VH but endorsed feeling depressed; no apparent delusional thought content reported this shift. He remained in his room and did not participate in HS snack; observed sleeping and does not appear to be having difficulty. Plan: Crisis interruption and stabilization in a safe and therapeutic environment. Pt is on a TCON. Pt is awaiting for his county to arrange a court date.
[2022-08-02 07:25] VITALS: BP 95/52
[2022-08-02] MEDS: QUEtiapine 25mg tablet PO SCH ×3 (08:29→20:29)
[2022-08-02] MEDS: haloperidol 5mg tablet PO SCH ×3 (08:29→20:29)
[2022-08-02] MEDS: divalproex 250mg tablet, delayed-release PO SCH ×2 (08:29→20:30)
[2022-08-02] MEDS: LORazepam 1 MG tablet PO SCH ×3 (08:29→20:29)
[2022-08-02] MEDS: benztropine 1mg tablet PO SCH ×2 (08:29→20:29)
[2022-08-02] MEDS: docusate sod 100mg capsule PO SCH (08:29)
[2022-08-02] MEDS: buprenorphine/naloxone 2-0.5mg sublingual tablet SL SCH (08:29)
[2022-08-02] MEDS: multivitamins, therapeutics tablet PO SCH (08:29)
[2022-08-02] MEDS: nicotine 21mg patch - 24 hr TD SCH (08:33)
[2022-08-02] MEDS: acetaminophen 325mg tablet PO PRN (09:51)
[2022-08-02] MEDS: haloperidol 5mg tablet PO PRN (11:33)
[2022-08-02] MEDS: clonazePAM 1mg tablet PO PRN (16:52)
--- NOTE | 2022-08-02 17:39 | NUR ---
Nursing Progress Note Problem: Per 5150 pt. is here for SA by OD on street drugs after command hallucinations telling him to do so. Pt. states that he took "Fentanyl, black china, meth, 8 ball" in suicide attempt. Pt. states he feels hopeless. Pt. is also delusional, stating, "they won't give me my billion dollars". Pt. states, "I tried killing myself because Im a free michelle. They dont love me but I love them. Yes I do." Interventions: 1:1 assessment, medication administration/education/monitoring, therapeutic conversation, active listening, ensured contract for safety, behavior monitoring and intervention as needed; reality orientation, provided distraction, redirection, encouragement, positive reinforcement, and Q15 minute safety checks. Response: RN received pt. asleep in bed at start of shift. Pt. awoke for breakfast and took all medications. Pt. went back to sleep after breakfast. Pt. awoke mid-morning observed pacing the unit with male peer. 1:1 done at bedside, pt. reports that he feels depressed thinking he might be here for his birthday in August, pt. states, It makes me feel like crying. Pt. c/o left ankle pain and given Tylenol 650mg po x1 with moderate effect. Pt. c/o of anxiety in the evening and received Klonopin 2mg with good effect. Plan: Crisis interruption and stabilization in a safe and therapeutic environment. Pt is on a TCON. Pt is awaiting for his county to arrange a court date.
[2022-08-02 19:46] VITALS: BP 92/48
[2022-08-02 20:07] VITALS: BP 110/75
[2022-08-02] MEDS: quetiapine 100mg tablet PO SCH (20:29)
[2022-08-02] MEDS: prazosin 1mg capsule PO SCH (20:29)
[2022-08-02] MEDS: traZODone 50mg tablet PO SCH (20:29)
--- NOTE | 2022-08-03 05:46 | NUR ---
Nursing Progress Note Problem: Per 5150 pt. is here for SA by OD on street drugs after command hallucinations telling him to do so. Pt. states that he took "Fentanyl, black china, meth, 8 ball" in suicide attempt. Pt. states he feels hopeless. Pt. is also delusional, stating, "they won't give me my billion dollars". Pt. states, "I tried killing myself because Im a free michelle. They dont love me but I love them. Yes I do." Interventions: 1:1 assessment, medication administration/education/monitoring, therapeutic conversation, active listening, ensured contract for safety, behavior monitoring and intervention as needed; reality orientation, provided distraction, redirection, encouragement, positive reinforcement, and Q15 minute safety checks. Response: Patient is pleasant and cooperative with care; compliant with medication. He reported he removed Nicotine patch. Patient denies SI, HI, A/VH; appears depressed this shift. He isolated to his room and did not participate in HS snack; observed sleeping and does not appear to be having difficulty. Plan: Crisis interruption and stabilization in a safe and therapeutic environment. Pt is on a TCON. Pt is awaiting for his county to arrange a court date.
[2022-08-03 07:00] VITALS: BP 99/60
[2022-08-03] MEDS: QUEtiapine 25mg tablet PO SCH ×3 (08:18→20:32)
[2022-08-03] MEDS: benztropine 1mg tablet PO SCH ×2 (08:19→20:32)
[2022-08-03] MEDS: nicotine 21mg patch - 24 hr TD SCH (08:19)
[2022-08-03] MEDS: haloperidol 5mg tablet PO SCH ×3 (08:19→20:32)
[2022-08-03] MEDS: LORazepam 1 MG tablet PO SCH ×3 (08:19→20:32)
[2022-08-03] MEDS: multivitamins, therapeutics tablet PO SCH (08:20)
[2022-08-03] MEDS: docusate sod 100mg capsule PO SCH (08:20)
[2022-08-03] MEDS: divalproex 250mg tablet, delayed-release PO SCH ×2 (08:20→20:32)
[2022-08-03] MEDS: buprenorphine/naloxone 2-0.5mg sublingual tablet SL SCH (08:25)
[2022-08-03] MEDS: acetaminophen 325mg tablet PO PRN (10:23)
[2022-08-03] MEDS: clonazePAM 1mg tablet PO PRN (10:47)
--- NOTE | 2022-08-03 17:58 | NUR ---
Nursing Progress Note Problem: Per 5150 pt. is here for SA by OD on street drugs after command hallucinations telling him to do so. Pt. states that he took "Fentanyl, black china, meth, 8 ball" in suicide attempt. Pt. states he feels hopeless. Pt. is also delusional, stating, "they won't give me my billion dollars". Pt. states, "I tried killing myself because Im a free michelle. They dont love me but I love them. Yes I do." Interventions: 1:1 assessment, medication administration/education/monitoring, therapeutic conversation, active listening, ensured contract for safety, behavior monitoring and intervention as needed; reality orientation, provided distraction, redirection, encouragement, positive reinforcement, and Q15 minute safety checks. Response: Received patient sleeping in bed at change of shift. Patient awakens and requests medications, then goes into dining room and eats his meals. Patient reports feeling depressed and anxious and requests Klonopin. Patient reports that another patient is making him anxious. He is also concerned that no matter how he eats and how much he walks that he is not losing any weight. Encouraged patient that he may just be at a plateau and that he could do some calisthenics in his room to increase his heart rate, but patient is not interested in this option. He has taken on a vegetarian diet to assist with healthy weight loss. Patient reports that he is concerned that even though he has had good behavior, that he is not getting placed. Patient takes his 15:00 medications and then goes to sleep for a couple of hours. Patient complains of pain in his left knee and Tylenol was given. Patient has been pleasant and cooperative this shift. Plan: Crisis interruption and stabilization in a safe and therapeutic environment. Pt is on a TCON. Pt is awaiting for his county to arrange a court date.
[2022-08-03 19:49] VITALS: BP 116/71
[2022-08-03] MEDS: quetiapine 100mg tablet PO SCH (20:32)
[2022-08-03] MEDS: prazosin 1mg capsule PO SCH (20:32)
[2022-08-03] MEDS: traZODone 50mg tablet PO SCH (20:34)
--- NOTE | 2022-08-04 05:12 | NUR ---
Nursing Progress Note Problem: Per 5150 pt. is here for SA by OD on street drugs after command hallucinations telling him to do so. Pt. states that he took "Fentanyl, black china, meth, 8 ball" in suicide attempt. Pt. states he feels hopeless. Pt. is also delusional, stating, "they won't give me my billion dollars". Pt. states, "I tried killing myself because Im a free michelle. They dont love me but I love them. Yes I do." Interventions: 1:1 assessment, medication administration/education/monitoring, therapeutic conversation, active listening, ensured contract for safety, behavior monitoring and intervention as needed; reality orientation, provided distraction, redirection, encouragement, positive reinforcement, and Q15 minute safety checks. Response: Patient is pleasant and cooperative with care; compliant with medication. Patient reports removing Nicotine patch. He continues to endorse depression; denies SI, HI, A/VH. Patient remained in bed throughout the shift; observed sleeping and does not appear to be having difficulty. Plan: Crisis interruption and stabilization in a safe and therapeutic environment. Pt is on a TCON. Pt is awaiting for his county to arrange a court date.
[2022-08-04 07:50] VITALS: BP 95/53
[2022-08-04] MEDS: benztropine 1mg tablet PO SCH ×2 (08:13→20:36)
[2022-08-04] MEDS: LORazepam 1 MG tablet PO SCH ×3 (08:13→20:36)
[2022-08-04] MEDS: haloperidol 5mg tablet PO SCH ×3 (08:14→20:36)
[2022-08-04] MEDS: docusate sod 100mg capsule PO SCH (08:14)
[2022-08-04] MEDS: divalproex 250mg tablet, delayed-release PO SCH ×2 (08:14→20:36)
[2022-08-04] MEDS: buprenorphine/naloxone 2-0.5mg sublingual tablet SL SCH (08:15)
[2022-08-04] MEDS: multivitamins, therapeutics tablet PO SCH (08:15)
[2022-08-04] MEDS: QUEtiapine 25mg tablet PO SCH ×3 (08:15→20:36)
[2022-08-04] MEDS: nicotine 21mg patch - 24 hr TD SCH (08:19)
[2022-08-04] MEDS: clonazePAM 1mg tablet PO PRN ×2 (08:31→17:04)
--- NOTE | 2022-08-04 09:22 | NUR ---
PLACEMENT Sent updated notes and placement packet to [facility] KARIMI. Ne Elle was requesting a placement packet. JOEL Casanova
[2022-08-04] MEDS: NICOTINE POLACRILEX 2 MG LOZENGE BC PRN (12:24)
[2022-08-04] MEDS: acetaminophen 325mg tablet PO PRN (15:48)
--- NOTE | 2022-08-04 16:53 | NUR ---
Nursing Progress Note Problem: Per 5150 pt. is here for SA by OD on street drugs after command hallucinations telling him to do so. Pt. states that he took "Fentanyl, black china, meth, 8 ball" in suicide attempt. Pt. states he feels hopeless. Pt. is also delusional, stating, "they won't give me my billion dollars". Pt. states, "I tried killing myself because Im a free michelle. They dont love me but I love them. Yes I do." Interventions: Provide medication administration & medication management; Maintained a safe & supportive environment; Clear & simple instructions; Direction & encouragement regarding performance of ADLs; monitored behaviors & maintained clear boundaries; Patient physical assessment & 1:1 patient interview; Therapeutic conversation & active listening; Patient education & monitoring. Response: Received patient while he was ambulating up and down the hallway before breakfast. AM medications were given and patient returned to bed after breakfast. Patient requested Haldol and Klonopin at approximately 1045 and 1130 this morning. Patient was calm and cooperative all day. Patient received Tylenol x2 and received relief from his CUETO. Patient received Nicotine Lozenge x1. Patient took an afternoon nap and was awake in time for snack at 1500. Patient is extremely concerned that he spoke to his Advocate Sri about his next placement from here, and her response was I have 500 clients and I cant keep up with all of you. Patient is fearful that nothing is being done regarding his discharge from [facility]. Informed the patient that I am here tomorrow and will discuss directly with a Machine Hoop Maker here at [facility]. Patient denies hearing voices, AH/VH or feeling suicidal. Plan: Crisis interruption and stabilization in a safe and therapeutic environment. Pt is on a TCON. Pt is awaiting for his [facility] to arrange a court date.
[2022-08-04 19:49] VITALS: BP 111/61
[2022-08-04] MEDS: quetiapine 100mg tablet PO SCH (20:36)
[2022-08-04] MEDS: traZODone 50mg tablet PO SCH (20:36)
[2022-08-04] MEDS: prazosin 1mg capsule PO SCH (20:36)
--- NOTE | 2022-08-05 04:56 | NUR ---
Nursing Progress Note Problem: Per 5150 pt. is here for SA by OD on street drugs after command hallucinations telling him to do so. Pt. states that he took "Fentanyl, black china, meth, 8 ball" in suicide attempt. Pt. states he feels hopeless. Pt. is also delusional, stating, "they won't give me my billion dollars". Pt. states, "I tried killing myself because Im a free michelle. They dont love me but I love them. Yes I do." Interventions: 1:1 assessment, medication administration/education/monitoring, therapeutic conversation, active listening, ensured contract for safety, behavior monitoring and intervention as needed; reality orientation, provided distraction, redirection, encouragement, positive reinforcement, and Q15 minute safety checks. Response: Patient is pleasant and cooperative with care; compliant with medication. He reported he removed his Nicotine patch. Denies SI, HI, A/VH; continues to appear depressed. He is isolative to his room, responding minimally and refused to participate in HS snack. Patient is observed sleeping and does not appear to be having difficulty. Plan: Crisis interruption and stabilization in a safe and therapeutic environment. Pt is on a TCON. Pt is awaiting for his county to arrange a court date.
[2022-08-05] MEDS: benztropine 1mg tablet PO SCH ×2 (07:22→20:05)
[2022-08-05] MEDS: divalproex 250mg tablet, delayed-release PO SCH ×2 (07:22→20:03)
[2022-08-05] MEDS: docusate sod 100mg capsule PO SCH (07:22)
[2022-08-05] MEDS: LORazepam 1 MG tablet PO SCH ×3 (07:22→20:05)
[2022-08-05] MEDS: QUEtiapine 25mg tablet PO SCH ×3 (07:23→20:54)
[2022-08-05] MEDS: buprenorphine/naloxone 2-0.5mg sublingual tablet SL SCH (07:23)
[2022-08-05] MEDS: haloperidol 5mg tablet PO SCH ×3 (07:23→20:05)
[2022-08-05] MEDS: multivitamins, therapeutics tablet PO SCH (07:23)
[2022-08-05] MEDS: nicotine 21mg patch - 24 hr TD SCH (07:30)
[2022-08-05 08:00] VITALS: BP 118/56
[2022-08-05] MEDS: acetaminophen 325mg tablet PO PRN (12:07)
[2022-08-05] MEDS: ibuprofen tablet 400 MG TABLET PO PRN (15:39)
[2022-08-05] MEDS: clonazePAM 1mg tablet PO PRN (17:21)
--- NOTE | 2022-08-05 17:42 | NUR ---
Nursing Progress Note Problem: Per 5150 pt. is here for SA by OD on street drugs after command hallucinations telling him to do so. Pt. states that he took "Fentanyl, black china, meth, 8 ball" in suicide attempt. Pt. states he feels hopeless. Pt. is also delusional, stating, "they won't give me my billion dollars". Pt. states, "I tried killing myself because Im a free michelle. They dont love me but I love them. Yes I do." Interventions: Provide medication administration & medication management; Maintained a safe & supportive environment; Clear & simple instructions; Direction & encouragement regarding performance of ADLs; monitored behaviors & maintained clear boundaries; Patient physical assessment & 1:1 patient interview; Therapeutic conversation & active listening; Patient education & monitoring. Response: Received patient who was up out of bed and ambulating up and down in the hallway before breakfast. After some coffee/hot chocolate, patient took him am medications. Patient then went to the Community [facility] for breakfast and had a great appetite. Patient took his medications throughout the day as ordered by MD. Patient spoke directly to FLORENTIN Jean, in the hallway regarding any updates she may have regarding his transfer, including the conversation he had with Sri when he spoke directly with the patient and informed him I also have 500 other clients besides you at this time. Patient has been despondent since yesterday morning hearing that news from Sri, and would like an update as to what is going on from Miranda. Miranda did not have any new information to give to the patient other than they are still working on the transfer, and it is a difficult transfer. Patient c/o pain on his bilateral posterior ankle after ambulating and received Tylenol at 1200 which worked only minimally. Per patient request, this Bus Info Consultant spoke with Dr. Mckenzie and received an order for Ibuprofen 400mg po tid but only received minimal relief. Informed the patient to rest and elevate his lower extremities to assist with the pain. Patient had a breakdown at approximately 1600 with lots of tears and begging God to put him near his son for placement and wished if that did not occur that he not be able to live any longer and requested dying by suicide. Patient was comforted by this Bus Info Consultant and JALYN Gabriel and patient was able to recover from his sobbing after approximately 45 minutes. Plan: Crisis interruption and stabilization in a safe and therapeutic environment. Pt is on a TCON. Pt is awaiting for his [facility] to arrange a court date.
[2022-08-05 19:00] VITALS: BP 139/84
[2022-08-05] MEDS ORDERED: LORazepam 2 mg/ml vial ONE (19:06)
[2022-08-05] MEDS ORDERED: haloperidol lactate 5mg/ml inj ONE (19:07)
[2022-08-05] MEDS ORDERED: diphenhydrAMINE 50 mg/ml inj ONE (19:07)
[2022-08-05] MEDS ORDERED: haloperidol lactate 5mg/ml inj IM ONE (19:20)
[2022-08-05 20:00] VITALS: BP 139/84
[2022-08-05] MEDS: prazosin 1mg capsule PO SCH (20:03)
[2022-08-05] MEDS: quetiapine 100mg tablet PO SCH (20:03)
[2022-08-05] MEDS: traZODone 50mg tablet PO SCH (20:03)
--- NOTE | 2022-08-06 04:47 | NUR ---
Nursing Progress Note Problem: Per 5150 pt. is here for SA by OD on street drugs after command hallucinations telling him to do so. Pt. states that he took "Fentanyl, black china, meth, 8 ball" in suicide attempt. Pt. states he feels hopeless. Pt. is also delusional, stating, "they won't give me my billion dollars". Pt. states, "I tried killing myself because Im a free michelle. They dont love me but I love them. Yes I do." Interventions: 1:1 assessment, medication administration/education/monitoring, therapeutic conversation, active listening, ensured contract for safety, behavior monitoring and intervention as needed; reality orientation, provided distraction, redirection, encouragement, positive reinforcement, and Q15 minute safety checks. Response: Patient was agitated and crying while pacing the unit at the beginning of shift; he reported several times, "I just want to ." It sounded as if patient hit the door in his room and he went back to pacing. Patient did not want to take PO medication at the time but was cooperative with IM medication; Ativan 2mg IM, Haldol 10mg IM and Benadryl 50mg IM provided without difficulty. He began socializing with PCT and was later apologetic. He talked about missing his son and just wishing he was closer to him. He continued, "I just don't want my son to think I don't love him." Patient was pleasant and cooperative with HS medication; observed sleeping and does not appear to be having difficulty. Plan: Crisis interruption and stabilization in a safe and therapeutic environment. Pt is on a TCON. Pt is awaiting for his county to arrange a court date.
[2022-08-06 07:18] VITALS: BP 102/54
[2022-08-06] MEDS: buprenorphine/naloxone 2-0.5mg sublingual tablet SL SCH (08:17)
[2022-08-06] MEDS: nicotine 21mg patch - 24 hr TD SCH (08:17)
[2022-08-06] MEDS: QUEtiapine 25mg tablet PO SCH ×3 (08:18→21:18)
[2022-08-06] MEDS: multivitamins, therapeutics tablet PO SCH (08:18)
[2022-08-06] MEDS: docusate sod 100mg capsule PO SCH (08:18)
[2022-08-06] MEDS: benztropine 1mg tablet PO SCH ×2 (08:18→21:18)
[2022-08-06] MEDS: LORazepam 1 MG tablet PO SCH ×3 (08:18→21:19)
[2022-08-06] MEDS: divalproex 250mg tablet, delayed-release PO SCH ×2 (08:18→21:19)
[2022-08-06] MEDS: haloperidol 5mg tablet PO SCH ×3 (08:19→21:18)
[2022-08-06] MEDS: ibuprofen tablet 400 MG TABLET PO PRN (09:12)
--- NOTE | 2022-08-06 13:23 | NUR ---
[facility] HEARING 08/21/22 AT 1415 VIA NOZA Called Christophe's Public Guardian, Magaly Brown ([phone]), to inquire when his next hearing is. His next hearing is 08/21/22 at 1415 via [employer]. Magaly reported she will send process description writer the zoom link. JOEL Casanova
[2022-08-06] MEDS: clonazePAM 1mg tablet PO PRN (15:33)
--- NOTE | 2022-08-06 16:15 | NUR ---
LPS hearing information provided to client This radio script writer provided information-- a piece of paper with large type--to client that his LPS hearing is set, his clothing requests were sent to [facility] public guardian. Client has been been concerned about when his hearing is, and perseverating about clothing he wants. Clothing purchases are through public guardian, and client calls on his own.
--- NOTE | 2022-08-06 17:22 | NUR ---
Nursing Progress Note Problem: Per 5150 pt. is here for SA by OD on street drugs after command hallucinations telling him to do so. Pt. states that he took "Fentanyl, black china, meth, 8 ball" in suicide attempt. Pt. states he feels hopeless. Pt. is also delusional, stating, "they won't give me my billion dollars". Pt. states, "I tried killing myself because Im a free michelle. They dont love me but I love them. Yes I do." Interventions: 1:1 assessment, medication administration/education/monitoring, therapeutic conversation, active listening, ensured contract for safety, behavior monitoring and intervention as needed; reality orientation, provided distraction, redirection, encouragement, positive reinforcement, and Q15 minute safety checks. Response: Received patient when he woke up after 0800 and was awakened for breakfast. Patient appears very despondent since his interactions yesterday with his Social Workers. Patient informed I think I need to give up and quit living now. Informed patient that there is so much to live for, while now it can be frustrating that we need to keep positive thoughts about where he might go as well as will he be near his son. I informed the patient I will continue, as will other Licensed Nursing Staff to talk to the Social Workers or read their notes on what the latest update is on his possible transfer outside of [facility], and in turn keep him as updated as much as possible. Patient stated I slept very good last night, but Telma been really down since Sri informed me that she has 500 other patients, and it feels like she doesnt care one bit about me. Patient continued to walk the halls up and down the rest of the morning, and at approximately 1230, FLORENTIN Richard came to [facility] and informed patient [facility] in [place] inquired about you and I sent out packets to them on Thursday afternoon. There are a few [facility] in the [place] area, so we will wait and see if they respond back. Patient turned to this [employer] and asked Is that good news? Informed the patient that was very good news, and it would keep him closer to his son as well as his family. Patient celebrated by smiling and hugging those around him. Patient remained in great spirits the rest of the day. Informed patient that we need to take one day at a time, and celebrate any of the good news that comes his way. Plan: Crisis interruption and stabilization in a safe and therapeutic environment. Pt is on a TCON. Pt is awaiting for his county to arrange a court date.
[2022-08-06 19:00] VITALS: BP 99/51
[2022-08-06 20:37] VITALS: BP 90/70
[2022-08-06] MEDS: prazosin 1mg capsule PO SCH (21:00)
[2022-08-06] MEDS: quetiapine 100mg tablet PO SCH (21:18)
[2022-08-06] MEDS: traZODone 50mg tablet PO SCH (21:19)
--- NOTE | 2022-08-07 05:43 | NUR ---
Nursing Progress Note Problem: Per 5150 pt. is here for SA by OD on street drugs after command hallucinations telling him to do so. Pt. states that he took "Fentanyl, black china, meth, 8 ball" in suicide attempt. Pt. states he feels hopeless. Pt. is also delusional, stating, "they won't give me my billion dollars". Pt. states, "I tried killing myself because Im a free michelle. They dont love me but I love them. Yes I do." Interventions: 1:1 assessment, medication administration/education/monitoring, therapeutic conversation, active listening, ensured contract for safety, behavior monitoring and intervention as needed; reality orientation, provided distraction, redirection, encouragement, positive reinforcement, and Q15 minute safety checks. Response: Patient is pleasant and cooperative with care; compliant with medication. Prazosin was held for decreased BP. Nicotine patch removed. He appears depressed; denies SI, HI, A/VH. Patient remained in his room throughout the shift; observed sleeping and does not appear to be having difficulty. Plan: Crisis interruption and stabilization in a safe and therapeutic environment. Pt is on a TCON. Pt is awaiting for his county to arrange a court date.
[2022-08-07 07:30] VITALS: BP 102/56
[2022-08-07] MEDS: buprenorphine/naloxone 2-0.5mg sublingual tablet SL SCH (07:52)
[2022-08-07] MEDS: divalproex 250mg tablet, delayed-release PO SCH ×2 (07:52→20:58)
[2022-08-07] MEDS: nicotine 21mg patch - 24 hr TD SCH (07:52)
[2022-08-07] MEDS: QUEtiapine 25mg tablet PO SCH ×3 (07:52→20:57)
[2022-08-07] MEDS: LORazepam 1 MG tablet PO SCH ×3 (07:53→20:58)
[2022-08-07] MEDS: haloperidol 5mg tablet PO SCH ×3 (07:53→20:58)
[2022-08-07] MEDS: benztropine 1mg tablet PO SCH ×2 (07:53→20:58)
[2022-08-07] MEDS: docusate sod 100mg capsule PO SCH (07:53)
[2022-08-07] MEDS: multivitamins, therapeutics tablet PO SCH (07:54)
[2022-08-07] MEDS: clonazePAM 1mg tablet PO PRN (16:21)
--- NOTE | 2022-08-07 17:40 | NUR ---
Nursing Progress Note: Problem: Per 5150 pt. is here for SA by OD on street drugs after command hallucinations telling him to do so. Pt. states that he took "Fentanyl, black china, meth, 8 ball" in suicide attempt. Pt. states he feels hopeless. Pt. is also delusional, stating, "they won't give me my billion dollars". Pt. states, "I tried killing myself because Im a free michelle. They dont love me but I love them. Yes I do." Interventions: 1:1 assessment, medication administration/education/monitoring, therapeutic conversation, active listening, ensured contract for safety, behavior monitoring and intervention as needed; reality orientation, provided distraction, redirection, encouragement, positive reinforcement, and Q15 minute safety checks. Response: Patient was up early for breakfast. He eats well and is compliant with all medications. His mood is good today, and he is pleasant and cooperative with staff. He has a court date for conservatorship soon and hes happy about that. He knows the sooner he is conserved the sooner he will get off it. He just wants to be near his son. Patient continues to be positively encouraged to remain upbeat. He knows that people here care about him, and want the best for him. He just gets discouraged real easily. Patient denies all MH symptoms, and none are observed. He spends most of the day pacing with headphones on. Plan: Crisis interruption and stabilization in a safe and therapeutic environment. Pt is on a TCON. Pt is awaiting for his county to arrange a court date.
[2022-08-07] MEDS: ibuprofen tablet 400 MG TABLET PO PRN (18:56)
[2022-08-07 19:00] VITALS: BP 135/86
[2022-08-07] MEDS: quetiapine 100mg tablet PO SCH (20:57)
[2022-08-07] MEDS: traZODone 50mg tablet PO SCH (20:58)
[2022-08-07] MEDS: prazosin 1mg capsule PO SCH (20:58)
--- NOTE | 2022-08-08 04:46 | NUR ---
Nursing Progress Note: Problem: Per 5150 pt. is here for SA by OD on street drugs after command hallucinations telling him to do so. Pt. states that he took "Fentanyl, black china, meth, 8 ball" in suicide attempt. Pt. states he feels hopeless. Pt. is also delusional, stating, "they won't give me my billion dollars". Pt. states, "I tried killing myself because Im a free michelle. They dont love me but I love them. Yes I do." Interventions: 1:1 assessment, medication administration/education/monitoring, therapeutic conversation, active listening, ensured contract for safety, behavior monitoring and intervention as needed; reality orientation, provided distraction, redirection, encouragement, positive reinforcement, and Q15 minute safety checks. Response: Pt resting in bed at start of shift. Pt denies SI/AH/VH. When asked how he is doing pt states good but a little depressed, I just want to get out of here. Pt came out of his room and walked around then went back in his room after snack. HS meds administered, PRN Motrin 400mg administered for 5/10 pain to lt ankle with effectiveness. When asked how he hurt his ankle he states Telma been walking on it since 8:00 this morning. Pt slept through the night. Plan: Crisis interruption and stabilization in a safe and therapeutic environment. Pt is on a TCON. Pt is awaiting for his county to arrange a court date.
[2022-08-08] MEDS: QUEtiapine 25mg tablet PO SCH ×3 (07:21→20:41)
[2022-08-08] MEDS: LORazepam 1 MG tablet PO SCH ×3 (07:21→20:42)
[2022-08-08] MEDS: buprenorphine/naloxone 2-0.5mg sublingual tablet SL SCH (07:22)
[2022-08-08] MEDS: divalproex 250mg tablet, delayed-release PO SCH ×2 (07:22→20:42)
[2022-08-08] MEDS: benztropine 1mg tablet PO SCH ×2 (07:22→20:41)
[2022-08-08] MEDS: haloperidol 5mg tablet PO SCH ×3 (07:22→20:42)
[2022-08-08] MEDS: multivitamins, therapeutics tablet PO SCH (07:22)
[2022-08-08 07:23] VITALS: BP 120/79
[2022-08-08] MEDS: nicotine 21mg patch - 24 hr TD SCH (07:23)
[2022-08-08] MEDS: docusate sod 100mg capsule PO SCH (07:23)
[2022-08-08] MEDS: acetaminophen 325mg tablet PO PRN (11:34)
[2022-08-08] MEDS: clonazePAM 1mg tablet PO PRN (12:13)
[2022-08-08] MEDS ORDERED: diphenhydrAMINE 50 mg/ml inj ONE (13:29)
[2022-08-08] MEDS ORDERED: haloperidol lactate 5mg/ml inj ONE (13:29)
[2022-08-08] MEDS ORDERED: LORazepam 2 mg/ml vial ONE (13:30)
--- NOTE | 2022-08-08 17:37 | NUR ---
Nursing Progress Note: Problem: Per 5150 pt. is here for SA by OD on street drugs after command hallucinations telling him to do so. Pt. states that he took "Fentanyl, black china, meth, 8 ball" in suicide attempt. Pt. states he feels hopeless. Pt. is also delusional, stating, "they won't give me my billion dollars". Pt. states, "I tried killing myself because Im a free michelle. They dont love me but I love them. Yes I do." Interventions: 1:1 assessment, medication administration/education/monitoring, therapeutic conversation, active listening, ensured contract for safety, behavior monitoring and intervention as needed; reality orientation, provided distraction, redirection, encouragement, positive reinforcement, and Q15 minute safety checks. Response: Patient was up early for breakfast. He is compliant with all medications. His mood is all over the place, so he acts out. He is too protective of staff, and wants to hurt anybody that he thinks disrespects us. He has been told over and over that is not his rolebut thats his thought process. Patient cannot find anything to be positive about. This morning he wanted to hurt his roommate over some perceived slight. They seem to have come to some agreement. Then in the afternoon he had a very loud outburst that scared everybody. Security was called, and he wanted them to taze him. He ended up getting a B52: 2mg Ativan IM, 10mg Haldol IM, and Benadryl 50mg IM. He tolerated it well and finally ended up falling asleep. Plan: Crisis interruption and stabilization in a safe and therapeutic environment. Pt is on a TCON. Pt is awaiting for his county to arrange a court date.
[2022-08-08 19:00] VITALS: BP 90/41
[2022-08-08] MEDS: quetiapine 100mg tablet PO SCH (20:41)
[2022-08-08] MEDS: traZODone 50mg tablet PO SCH (20:42)
[2022-08-08] MEDS: ibuprofen tablet 400 MG TABLET PO PRN (20:42)
[2022-08-08] MEDS: prazosin 1mg capsule PO SCH (20:43)
--- NOTE | 2022-08-09 05:03 | NUR ---
Nursing Progress Note: Problem: Per 5150 pt. is here for SA by OD on street drugs after command hallucinations telling him to do so. Pt. states that he took "Fentanyl, black china, meth, 8 ball" in suicide attempt. Pt. states he feels hopeless. Pt. is also delusional, stating, "they won't give me my billion dollars". Pt. states, "I tried killing myself because Im a free michelle. They dont love me but I love them. Yes I do." Interventions: 1:1 assessment, medication administration/education/monitoring, therapeutic conversation, active listening, ensured contract for safety, behavior monitoring and intervention as needed; reality orientation, provided distraction, redirection, encouragement, positive reinforcement, and Q15 minute safety checks. Response: Pt resting in bed at start of shift. Pt denies wanting to hurt self and others. Pt denies AH/VH. When asked how he is doing pt states Im fine, a little stressed about court when it comes. Pt reports pain to left ankle 4/10 PRN Motrin administered with HS meds. BP 90/41 non-admin prazosin per order. Pt states he ate all his dinner and will not be having snack tonight. Pt slept through the night. Plan: Crisis interruption and stabilization in a safe and therapeutic environment. Pt is on a TCON. Pt is awaiting for his county to arrange a court date.
[2022-08-09] MEDS: nicotine 21mg patch - 24 hr TD SCH (07:38)
[2022-08-09] MEDS: benztropine 1mg tablet PO SCH ×2 (07:38→20:29)
[2022-08-09] MEDS: divalproex 250mg tablet, delayed-release PO SCH ×2 (07:38→20:29)
[2022-08-09] MEDS: multivitamins, therapeutics tablet PO SCH (07:38)
[2022-08-09] MEDS: docusate sod 100mg capsule PO SCH (07:39)
[2022-08-09] MEDS: haloperidol 5mg tablet PO SCH ×3 (07:39→20:29)
[2022-08-09] MEDS: QUEtiapine 25mg tablet PO SCH (07:39)
[2022-08-09] MEDS: LORazepam 1 MG tablet PO SCH ×3 (07:39→20:29)
[2022-08-09 08:00] VITALS: BP 110/60
[2022-08-09] MEDS: acetaminophen 325mg tablet PO PRN ×2 (08:41→19:44)
[2022-08-09] MEDS: buprenorphine/naloxone 2-0.5mg sublingual tablet SL SCH (11:35)
[2022-08-09] MEDS: quetiapine 100mg tablet PO SCH ×3 (12:11→20:30)
--- NOTE | 2022-08-09 17:43 | NUR ---
Nursing Progress Note: Problem: Per 5150 pt. is here for SA by OD on street drugs after command hallucinations telling him to do so. Pt. states that he took "Fentanyl, black china, meth, 8 ball" in suicide attempt. Pt. states he feels hopeless. Pt. is also delusional, stating, "they won't give me my billion dollars". Pt. states, "I tried killing myself because Im a free michelle. They dont love me but I love them. Yes I do." Interventions: 1:1 assessment, medication administration/education/monitoring, therapeutic conversation, active listening, ensured contract for safety, behavior monitoring and intervention as needed; reality orientation, provided distraction, redirection, encouragement, positive reinforcement, and Q15 minute safety checks. Response: Patient was up early this morning for breakfast. He was compliant with medications. Patient is eating less food because he is obsessed with losing weight. Sat down with patient this morning and we talked about his learned behaviors, like solving all problems with fighting. He was willing to talk about it so he can try to learn new behaviors. Since we talked, he has been on his best behavior today, and will try to learn how to walk away when he feels disrespected. He has not had any problems with his roommate, or anybody else today. Patient has a court date on the of this month, so that is something positive for him to think about. He has spent most of the day pacing with headphones on, and he continues work on getting down to his weight goal of 210 pounds. Plan: Crisis interruption and stabilization in a safe and therapeutic environment. Pt is on a TCON. Pt is awaiting for his county to arrange a court date.
[2022-08-09 19:28] VITALS: BP 125/92
[2022-08-09] MEDS: prazosin 1mg capsule PO SCH (20:28)
[2022-08-09] MEDS: traZODone 50mg tablet PO SCH (20:29)
--- NOTE | 2022-08-10 04:26 | NUR ---
Nursing Progress Note: Problem: Per 5150 pt. is here for SA by OD on street drugs after command hallucinations telling him to do so. Pt. states that he took "Fentanyl, black china, meth, 8 ball" in suicide attempt. Pt. states he feels hopeless. Pt. is also delusional, stating, "they won't give me my billion dollars". Pt. states, "I tried killing myself because Im a free michelle. They dont love me but I love them. Yes I do." Interventions: 1:1 assessment, medication administration/education/monitoring, therapeutic conversation, active listening, ensured contract for safety, behavior monitoring and intervention as needed; reality orientation, provided distraction, redirection, encouragement, positive reinforcement, and Q15 minute safety checks. Response: Pt pacing the halls at start of shift talking to staff being pleasant and listening to music. When asked how he is doing today he states happy, dinner was good pt denies SI/HI/AH/VH. Pt states his left ankle is sore from walking on it all day. PRN Tylenol administered for pain 5/10 with effectiveness. Pt had snack and took all his HS meds. Paced the halls a few more times then went to bed. Pt slept well through the night. Plan: Crisis interruption and stabilization in a safe and therapeutic environment. Pt is on a TCON. Pt is awaiting for his county to arrange a court date.
[2022-08-10] MEDS: benztropine 1mg tablet PO SCH ×2 (07:44→20:15)
[2022-08-10] MEDS: LORazepam 1 MG tablet PO SCH ×3 (07:44→20:15)
[2022-08-10] MEDS: docusate sod 100mg capsule PO SCH (07:44)
[2022-08-10] MEDS: nicotine 21mg patch - 24 hr TD SCH (07:44)
[2022-08-10] MEDS: divalproex 250mg tablet, delayed-release PO SCH ×2 (07:45→20:15)
[2022-08-10] MEDS: quetiapine 100mg tablet PO SCH ×4 (07:45→20:17)
[2022-08-10] MEDS: haloperidol 5mg tablet PO SCH ×3 (07:45→20:15)
[2022-08-10] MEDS: buprenorphine/naloxone 2-0.5mg sublingual tablet SL SCH (07:45)
[2022-08-10] MEDS: multivitamins, therapeutics tablet PO SCH (07:45)
[2022-08-10 07:57] VITALS: BP 94/51
[2022-08-10] MEDS: acetaminophen 325mg tablet PO PRN (08:45)
[2022-08-10] MEDS: magnesium hydroxide 30ml (MOM) UD suspension PO PRN (09:40)
--- NOTE | 2022-08-10 10:20 | NUR ---
Pt. became agitated regarding his desire to discharge and began rapidly pacing the unit making agitated statements to staff. This field underwriter walked with pt. and attempted to provided redirection and positive encouragement, however pt. remained agitated. PRN Clonazepam and Haldol were administered and pt. reported contentment, will continue to monitor closely.
[2022-08-10] MEDS: haloperidol 5mg tablet PO PRN (10:21)
[2022-08-10] MEDS: clonazePAM 1mg tablet PO PRN (10:21)
[2022-08-10] MEDS: ibuprofen tablet 400 MG TABLET PO PRN (11:14)
--- NOTE | 2022-08-10 17:15 | NUR ---
Nursing Progress Note Problem: Per 5150 pt. is here for SA by OD on street drugs after command hallucinations telling him to do so. Pt. states that he took "Fentanyl, black china, meth, 8 ball" in suicide attempt. Pt. states he feels hopeless. Pt. is also delusional, stating, "they won't give me my billion dollars". Pt. states, "I tried killing myself because Im a free michelle. They dont love me but I love them. Yes I do." Interventions: 1:1 assessment, medication administration/education/monitoring, therapeutic conversation, active listening, ensured contract for safety, behavior monitoring and intervention as needed; reality orientation, provided distraction, redirection, encouragement, positive reinforcement, and Q15 minute safety checks. Response: Received patient who was awake before 0700 and was ambulating in the hallway and was drinking coffee before breakfast. Patient received his 0800 medications and went to eat breakfast in the Community Room. Patient reported he has had no BMs in the past 3 days. Patient received MOM early this morning and will ask patient at the end of the day if he had results from receiving MOM. Patient kept ambulating in the hallway. Denies voices at this time and reports he is not suicidal. Patient started ambulating then stopped by the Charting Room for Licensed Nurses and said You guys dont like me anymore. What did I do to make you mad? Patient walked up to [facility] and said You arent paying any attention to me. Spoke directly with patient at 1000 and informed patient that none of us are upset or mad at him. We have just had a very busy morning and asked the patient to just relax and he was doing great. Patient smiled and reported Then Im having a lot of anxiety I dont need. Christopher Brock RN medicated the patient with Haldol & Klonopin at 1020, and patient laid down to sleep until lunch at 1300. Patient woke up and ate lunch in the Community Room and reported feeling better. Patient watched some football then was located in laying down in his bed and fell asleep again at approximately 1400. Patient woke up and came out into the hallway at 1555 and received his Ativan & Haldol. Patient reported to me at this time that he threw up earlier today and I think it is the Suboxone. Informed the patient that I will notify Dr. Mckenzie in the morning about the vomiting episode and inquire about the medication. Plan: Crisis interruption and stabilization in a safe and therapeutic environment. Pt is on a TCON. Pt is awaiting for his county to arrange a court date.
[2022-08-10] MEDS: prazosin 1mg capsule PO SCH (20:15)
[2022-08-10] MEDS: traZODone 50mg tablet PO SCH (20:15)
[2022-08-10 20:24] VITALS: BP 96/54
--- NOTE | 2022-08-11 04:24 | NUR ---
Nursing Progress Note: Problem: Per 5150 pt. is here for SA by OD on street drugs after command hallucinations telling him to do so. Pt. states that he took "Fentanyl, black china, meth, 8 ball" in suicide attempt. Pt. states he feels hopeless. Pt. is also delusional, stating, "they won't give me my billion dollars". Pt. states, "I tried killing myself because Im a free michelle. They dont love me but I love them. Yes I do." Interventions: 1:1 assessment, medication administration/education/monitoring, therapeutic conversation, active listening, ensured contract for safety, behavior monitoring and intervention as needed; reality orientation, provided distraction, redirection, encouragement, positive reinforcement, and Q15 minute safety checks. Response: Pt sleeping at start of shift. Declined to go for snack when awakened. Did not answer questions took medications and went back to sleep is still sleeping at this time. Plan: Crisis interruption and stabilization in a safe and therapeutic environment. Pt is on a TCON. Pt is awaiting for his county to arrange a court date.
[2022-08-11 07:54] VITALS: BP 101/52
[2022-08-11] MEDS: haloperidol 5mg tablet PO SCH ×3 (08:02→20:46)
[2022-08-11] MEDS: nicotine 21mg patch - 24 hr TD SCH (08:02)
[2022-08-11] MEDS: buprenorphine/naloxone 2-0.5mg sublingual tablet SL SCH (08:02)
[2022-08-11] MEDS: LORazepam 1 MG tablet PO SCH ×3 (08:03→20:46)
[2022-08-11] MEDS: docusate sod 100mg capsule PO SCH (08:03)
[2022-08-11] MEDS: quetiapine 100mg tablet PO SCH ×4 (08:03→20:52)
[2022-08-11] MEDS: divalproex 250mg tablet, delayed-release PO SCH ×2 (08:03→20:46)
[2022-08-11] MEDS: benztropine 1mg tablet PO SCH ×2 (08:03→20:45)
[2022-08-11] MEDS: multivitamins, therapeutics tablet PO SCH (08:04)
[2022-08-11] MEDS: clonazePAM 1mg tablet PO PRN (13:30)
--- NOTE | 2022-08-11 13:34 | NUR ---
Sent updated notes to [facility] for placement purposes. (08/04-08/10). JOEL Casanova
--- NOTE | 2022-08-11 16:46 | NUR ---
Nursing Progress Note Problem: Per 5150 pt. is here for SA by OD on street drugs after command hallucinations telling him to do so. Pt. states that he took "Fentanyl, black china, meth, 8 ball" in suicide attempt. Pt. states he feels hopeless. Pt. is also delusional, stating, "they won't give me my billion dollars". Pt. states, "I tried killing myself because Im a free michelle. They dont love me but I love them. Yes I do." Interventions: 1:1 assessment, medication administration/education/monitoring, therapeutic conversation, active listening, ensured contract for safety, behavior monitoring and intervention as needed; reality orientation, provided distraction, redirection, encouragement, positive reinforcement, and Q15 minute safety checks. Response: Received patient when he woke up at 0800 after the breakfast trays had arrived on the unit. Patient went immediately to the Community Room and received his morning medications at that time. Patient reports I am really tired today. Patient slept 10.75 hours last night. Patient returned to bed after breakfast and slept until 1300 when he got out of bed and returned to the Community Room. Patient made one comment stating What if I did something here and had to go to [facility], would they return me here or could I leave on my own from there. Informed the patient that this was not an appropriate analogy to think about and refused to answer him as he was speaking while he was still lethargic. Patient slept again this afternoon until approximately 1530 and woke up and took his 1500 medications at that time. Plan: Crisis interruption and stabilization in a safe and therapeutic environment. Pt is on a TCON. Pt is awaiting for his county to arrange a court date.
[2022-08-11 20:00] VITALS: BP 97/55
[2022-08-11] MEDS: traZODone 50mg tablet PO SCH (20:45)
[2022-08-11] MEDS: prazosin 1mg capsule PO SCH (20:46)
--- NOTE | 2022-08-12 02:13 | NUR ---
Nursing Progress Note Problem: Per 5150 pt. is here for SA by OD on street drugs after command hallucinations telling him to do so. Pt. states that he took "Fentanyl, black china, meth, 8 ball" in suicide attempt. Pt. states he feels hopeless. Pt. is also delusional, stating, "they won't give me my billion dollars". Pt. states, "I tried killing myself because Im a free michelle. They dont love me but I love them. Yes I do." Interventions: 1:1 assessment, medication administration/education/monitoring, therapeutic conversation, active listening, ensured contract for safety, behavior monitoring and intervention as needed; reality orientation, provided distraction, redirection, encouragement, positive reinforcement, and Q15 minute safety checks. Response: 1:1 with patient in his room. He had just taken a shower and was having his HS snack. When ask about depression and anxiety, he mumbled "yes to all above". He reports being worried about going to [facility]. We assured him he was safe here. He speaks very quietly and interjects God into conversation sporadically. He is med complian Plan: Crisis interruption and stabilization in a safe and therapeutic environment. Pt is on a TCON. Pt is awaiting for his county to arrange a court date.
[2022-08-12 07:43] VITALS: BP 121/43
[2022-08-12] MEDS: divalproex 250mg tablet, delayed-release PO SCH ×2 (08:04→20:58)
[2022-08-12] MEDS: multivitamins, therapeutics tablet PO SCH (08:04)
[2022-08-12] MEDS: benztropine 1mg tablet PO SCH ×2 (08:04→20:58)
[2022-08-12] MEDS: buprenorphine/naloxone 2-0.5mg sublingual tablet SL SCH (08:04)
[2022-08-12] MEDS: haloperidol 5mg tablet PO SCH ×3 (08:04→20:58)
[2022-08-12] MEDS: docusate sod 100mg capsule PO SCH ×2 (08:04→20:58)
[2022-08-12] MEDS: quetiapine 100mg tablet PO SCH ×4 (08:04→20:57)
[2022-08-12] MEDS: LORazepam 1 MG tablet PO SCH ×3 (08:05→20:58)
[2022-08-12] MEDS: nicotine 21mg patch - 24 hr TD SCH (08:05)
--- NOTE | 2022-08-12 08:45 | NUR ---
F/u 08/12:: Pt continues eating well on Vegetarian diet, documented with mostly 100% PO intake w/ occasional refusal while receiving double protein TID. Receiving routine MVI. LBM 08/07 receiving routine colace per EMR. Will continue to follow. Recommendations: 1) Continue Vegetarian diet per pt request 2) Double protein TID 3) MVI supplementation per MD 4) Bowel care PRN 5) Weekly scaled weights Addendum: 08/12/22 at [address] Amended: Links added.
[2022-08-12] MEDS: magnesium hydroxide 30ml (MOM) UD suspension PO PRN (12:17)
[2022-08-12] MEDS: clonazePAM 1mg tablet PO PRN (12:48)
--- NOTE | 2022-08-12 17:27 | NUR ---
Nursing Progress Note: Christophe Problem: Per 5150 pt. is here for SA by OD on street drugs after command hallucinations telling him to do so. Pt. states that he took "Fentanyl, black china, meth, 8 ball" in suicide attempt. Interventions: Maintained a safe and supportive environment, ensured contract for safety, provided clear and simple instructions, attempted to orient to reality, monitored behavior and provided intervention as needed, provided active listening and positive encouragement, encouraged independent performance of ADLs, and maintained Q 15min safety checks. Response: Received pt. asleep in his room and awoke to eat breakfast. Pt. denies SI, HI, A/VH and took his medications without hesitation. Pt. reports Im trying to avoid a problem with this Devil worshiper, and has avoided any confrontations with male cohort today. Pt. reports its been 4 days since LBM; PRN MOM given along with prune juice with result pending. He ate all meals in the dining room with others but was not as social today. Pt. paces the unit and listens to headphones, and refused an opportunity to go to the [facility] for an outing with staff. He approached this journalists and other writers with complaints of my conservator wont call me back, I need some new clothes, Im tired of wearing the same clothes for months. He appeared agitated and requested Klonopin. Pt. has good hygiene, wearing street clothes, and is well groomed. Plan: Per provider, pt. continues to require a safe and supportive environment. Conservatorship is recommended.
[2022-08-12 19:00] VITALS: BP 95/59
[2022-08-12] MEDS: traZODone 50mg tablet PO SCH (20:58)
[2022-08-12] MEDS: prazosin 1mg capsule PO SCH (21:00)
--- NOTE | 2022-08-13 05:05 | NUR ---
Nursing Progress Note Problem: Per 5150 pt. is here for SA by OD on street drugs after command hallucinations telling him to do so. Pt. states that he took "Fentanyl, black china, meth, 8 ball" in suicide attempt. Pt. states he feels hopeless. Pt. is also delusional, stating, "they won't give me my billion dollars". Pt. states, "I tried killing myself because Im a free michelle. They dont love me but I love them. Yes I do." Interventions: 1:1 assessment, medication administration/education/monitoring, therapeutic conversation, active listening, ensured contract for safety, behavior monitoring and intervention as needed; reality orientation, provided distraction, redirection, encouragement, positive reinforcement, and Q15 minute safety checks. Response: Patient is pleasant and cooperative with care; compliant with medication. Nicotine patch removed. Denies SI, HI, A/VH; no apparent delusions expressed this shift. Patient remained in his room throughout shift; observed sleeping and does not appear to be having difficulty. Plan: Crisis interruption and stabilization in a safe and therapeutic environment. Pt is on a TCON. Pt is awaiting for his county to arrange a court date.
[2022-08-13] MEDS: docusate sod 100mg capsule PO SCH ×2 (07:58→20:40)
[2022-08-13] MEDS: haloperidol 5mg tablet PO SCH ×3 (07:58→20:40)
[2022-08-13] MEDS: divalproex 250mg tablet, delayed-release PO SCH ×2 (07:58→20:40)
[2022-08-13] MEDS: LORazepam 1 MG tablet PO SCH ×3 (07:58→20:40)
[2022-08-13] MEDS: quetiapine 100mg tablet PO SCH ×4 (07:59→21:08)
[2022-08-13] MEDS: multivitamins, therapeutics tablet PO SCH (07:59)
[2022-08-13] MEDS: buprenorphine/naloxone 2-0.5mg sublingual tablet SL SCH (07:59)
[2022-08-13] MEDS: benztropine 1mg tablet PO SCH ×2 (07:59→20:40)
[2022-08-13 08:00] VITALS: BP 100/60
[2022-08-13] MEDS: nicotine 21mg patch - 24 hr TD SCH (08:02)
[2022-08-13] MEDS: clonazePAM 1mg tablet PO PRN (12:50)
[2022-08-13] MEDS: magnesium hydroxide 30ml (MOM) UD suspension PO PRN (13:09)
[2022-08-13] MEDS: NICOTINE POLACRILEX 2 MG LOZENGE BC PRN (13:24)
[2022-08-13] MEDS: acetaminophen 325mg tablet PO PRN (13:54)
[2022-08-13] MEDS: lactulose 20gm/30ml cup PO PRN ×2 (14:39→20:40)
[2022-08-13] MEDS: haloperidol 5mg tablet PO PRN (15:54)
--- NOTE | 2022-08-13 16:24 | NUR ---
Nursing Progress Note: Christophe Problem: Per 5150 pt. is here for SA by OD on street drugs after command hallucinations telling him to do so. Pt. states that he took "Fentanyl, black china, meth, 8 ball" in suicide attempt. Interventions: Maintained a safe and supportive environment, ensured contract for safety, provided clear and simple instructions, attempted to orient to reality, monitored behavior and provided intervention as needed, provided active listening and positive encouragement, encouraged independent performance of ADLs, and maintained Q 15min safety checks. Response: Received pt. asleep and awoke for his medication he denies SI, HI, AH, VH and perseverates on his bowels. Currently pt. reports LBM was 5 days ago, and received MOM without effectiveness. N.O received for DSS to increase to 200mg Qday, additional MOM given today. Later in the day her reports he was on the toilet straining and had a small smear of blood. Hospitalist was notified, and N.O for lactulose Q 6hr PRN and daily mirlax to start. Pt. has been educated about avoiding straining and encouraged to wait on lactulose results. Pt. ate his meals in the dining room with mehran, but did self-report Im getting fucking pissed, with this fool Pt. was advised to return to his room and utilize his coping skills and PRN Klonopin was given. This writer technical publications and staff has not witnessed any altercation or communication between pt. and male myonr. Pt. later reported Tylenol for ankle pain, and a nicotine lozenge was given. At 1600 pt. approached staff and reported im about to have a panic attack PRN Haldol given. He has good hygiene, well-groomed and wears street clothes. PRN :Nicotine lozenges, MOM, lactulose, Tylenol, Haldol, Klonopin Plan: Per provider, pt. continues to require a safe and supportive environment. Conservatorship is recommended.
[2022-08-13 19:00] VITALS: BP 122/98
[2022-08-13] MEDS: psyllium seed 3.4 gm packet PO SCH (20:39)
[2022-08-13] MEDS: prazosin 1mg capsule PO SCH (20:40)
[2022-08-13] MEDS: traZODone 50mg tablet PO SCH (21:08)
--- NOTE | 2022-08-14 03:58 | NUR ---
Nursing Progress Note Problem: Per 5150 pt. is here for SA by OD on street drugs after command hallucinations telling him to do so. Pt. states that he took "Fentanyl, black china, meth, 8 ball" in suicide attempt. Pt. states he feels hopeless. Pt. is also delusional, stating, "they won't give me my billion dollars". Pt. states, "I tried killing myself because Im a free michelle. They dont love me but I love them. Yes I do." Interventions: 1:1 assessment, medication administration/education/monitoring, therapeutic conversation, active listening, ensured contract for safety, behavior monitoring and intervention as needed; reality orientation, provided distraction, redirection, encouragement, positive reinforcement, and Q15 minute safety checks. Response: Patient is pleasant and cooperative with care; compliant with medication. PRN Lactulose provided; no BM reported at this time. Patient reported he removed his Nicotine patch. He mostly stayed to his room this shift; briefly went to the community room. No negative behaviors or outbursts presented. Encouraged to drink more fluids. He's observed sleeping and does not appear to be having difficulty. Plan: Crisis interruption and stabilization in a safe and therapeutic environment. Pt is on a TCON. Pt is awaiting for his county to arrange a court date.
[2022-08-14 07:08] VITALS: BP 109/56
[2022-08-14] MEDS: LORazepam 1 MG tablet PO SCH ×3 (08:23→20:36)
[2022-08-14] MEDS: lactulose 20gm/30ml cup PO PRN ×2 (08:23→14:13)
[2022-08-14] MEDS: buprenorphine/naloxone 2-0.5mg sublingual tablet SL SCH (08:24)
[2022-08-14] MEDS: divalproex 250mg tablet, delayed-release PO SCH ×2 (08:24→20:37)
[2022-08-14] MEDS: multivitamins, therapeutics tablet PO SCH (08:24)
[2022-08-14] MEDS: docusate sod 100mg capsule PO SCH ×2 (08:24→20:35)
[2022-08-14] MEDS: haloperidol 5mg tablet PO SCH ×3 (08:25→20:38)
[2022-08-14] MEDS: benztropine 1mg tablet PO SCH ×2 (08:25→20:36)
[2022-08-14] MEDS: quetiapine 100mg tablet PO SCH ×4 (08:25→20:37)
[2022-08-14] MEDS: nicotine 21mg patch - 24 hr TD SCH (08:26)
--- NOTE | 2022-08-14 09:55 | NUR ---
Emailed patient's Public Guardian, Magaly, to request she send him clothing. JOEL Casanova
--- NOTE | 2022-08-14 16:19 | NUR ---
Nursing Progress Note: Christophe Problem: Per 5150 pt. is here for SA by OD on street drugs after command hallucinations telling him to do so. Pt. states that he took "Fentanyl, black china, meth, 8 ball" in suicide attempt. Interventions: Maintained a safe and supportive environment, ensured contract for safety, provided clear and simple instructions, attempted to orient to reality, monitored behavior and provided intervention as needed, provided active listening and positive encouragement, encouraged independent performance of ADLs, and maintained Q 15min safety checks. Response: Received pt. asleep and awoke for his medication he denies SI, HI, AH, VH and he reports feeling tired and wanting to sleep in. He continues to suffer from constipation and was given another dose of lactulose. Pt. denies having any hemorrhoids, and was educated on not straining. Spoke to ordering MD and he recommends giving MOM along with lactulose today. Pt. bowel sounds are present but sluggish, no abd. pain reported, also reviewed pt. recent intake and found a diet change 1 week ago to a Vegan menu. Pt. spent remainder of shift out on the unit walking and also increased fluids, no behavioral issues this shift. PRN :Nicotine lozenges, MOM, lactulose X2 Plan: Per provider, pt. continues to require a safe and supportive environment. Conservatorship is recommended. Addendum: 08/14/22 at 1653 by Iveth Jamison RN Pt. reports lactulose and MOM effective with 2 LG BM this evening
[2022-08-14 19:00] VITALS: BP 111/68
[2022-08-14] MEDS: polyethylene glycol 3350 17gm powd pack PO SCH (20:32)
[2022-08-14] MEDS: psyllium seed 3.4 gm packet PO SCH (20:32)
[2022-08-14] MEDS: prazosin 1mg capsule PO SCH (20:35)
[2022-08-14] MEDS: traZODone 50mg tablet PO SCH (20:38)
--- NOTE | 2022-08-15 04:41 | NUR ---
Nursing Progress Note: Christophe Problem: Per 5150 pt. is here for SA by OD on street drugs after command hallucinations telling him to do so. Pt. states that he took "Fentanyl, black china, meth, 8 ball" in suicide attempt. Interventions: Maintained a safe and supportive environment, ensured contract for safety, provided clear and simple instructions, attempted to orient to reality, monitored behavior and provided intervention as needed, provided active listening and positive encouragement, encouraged independent performance of ADLs, and maintained Q 15min safety checks. Response: Patient was found sleeping in bed. Patient continued to self isolate and sleep through out shift. Patient took all night medications without issue including scheduled miralax due to patient going multiple days without BM. Patient continues to try and have a bm at this time. Plan: Per provider, pt. continues to require a safe and supportive environment. Conservatorship is recommended.
[2022-08-15] MEDS: LORazepam 1 MG tablet PO SCH ×3 (07:42→20:42)
[2022-08-15] MEDS: docusate sod 100mg capsule PO SCH ×2 (07:42→20:43)
[2022-08-15] MEDS: quetiapine 100mg tablet PO SCH ×4 (07:42→20:54)
[2022-08-15] MEDS: divalproex 250mg tablet, delayed-release PO SCH ×2 (07:42→20:41)
[2022-08-15] MEDS: haloperidol 5mg tablet PO SCH ×3 (07:42→20:44)
[2022-08-15] MEDS: benztropine 1mg tablet PO SCH ×2 (07:42→20:42)
[2022-08-15] MEDS: buprenorphine/naloxone 2-0.5mg sublingual tablet SL SCH (07:43)
[2022-08-15] MEDS: acetaminophen 325mg tablet PO PRN ×2 (07:43→13:01)
[2022-08-15] MEDS: multivitamins, therapeutics tablet PO SCH (07:43)
[2022-08-15 07:57] VITALS: BP 123/66
[2022-08-15] MEDS: nicotine 21mg patch - 24 hr TD SCH (08:01)
[2022-08-15] MEDS: haloperidol 5mg tablet PO PRN (11:48)
[2022-08-15] MEDS: clonazePAM 1mg tablet PO PRN (12:35)
[2022-08-15] MEDS: benzocaine (Anbesol) 12ml bottle MM PRN (15:20)
--- NOTE | 2022-08-15 16:08 | NUR ---
Nursing Progress Note Problem: Per 5150 pt. is here for SA by OD on street drugs after command hallucinations telling him to do so. Pt. states that he took "Fentanyl, black china, meth, 8 ball" in suicide attempt. Pt. states he feels hopeless. Pt. is also delusional, stating, "they won't give me my billion dollars". Pt. states, "I tried killing myself because Im a free michelle. They dont love me but I love them. Yes I do." Interventions: 1:1 assessment, therapeutic conversation, active listening, ensured contract for safety, medication administration/education/monitoring, encouraged oral hygiene,behavior monitoring and intervention as needed; reality orientation, distraction, redirection, limit setting, encouragement, positive reinforcement, and Q15 minute safety checks. Response: Pt was up late for breakfast though did eat and was cooperative with medications. Pt c/o 7/10 right arm pain and was given Tylenol 650 mg with good effect. Pt returned to bed and napped until just after 1100 morning snack. While this RN was at lunch, pt c/o AH "evil voices" to another RN and was given PRN Haldol 5 mg at 1148. Pt c/o an anxiety attack and asked for PRN Klonopin 2 mg at 1235 with good effect. Pt c/o leg pain 3/10 and asked for more Tylenol 650 mg at 1301 with good effect. Pt denied hearing evil voices to this RN, he stated that he had been hearing "rhyming voices" pt verbalized a few rhymes as an example. Pt asked someone for candy, ate some Skittles then approached this RN to c/o dental pain and asked for Anbesol. Asked pt if he had brushed his teeth. Discovered that pt has not been brushing his teeth at all because when he does, his gums bleed. Educated pt on the importance of routine tooth brushing twice daily with gentle, circular motions and that his gums bleed because he doesn't brush, with regular brushing, they should stop bleeding. Provided pt with a toothbrush and toothpaste. Pt brushed his teeth and reported the pain was gone. A short time later, pt approached this nurse again to ask for Anbesol and to report that his gums were throbbing. PRN Anbesol applied to left lower back molar and surrounding gums with good effect. No abscess or redness noted, tooth indicated has a filling. Plan: Pt is on a TCON, pt has a hearing set for 08/21/22, he is awaiting placement.
[2022-08-15 19:52] VITALS: BP 116/66
[2022-08-15] MEDS: traZODone 50mg tablet PO SCH (20:42)
[2022-08-15] MEDS: prazosin 1mg capsule PO SCH (20:44)
[2022-08-15] MEDS: polyethylene glycol 3350 17gm powd pack PO SCH (20:54)
[2022-08-15] MEDS: psyllium seed 3.4 gm packet PO SCH (20:54)
--- NOTE | 2022-08-16 05:19 | NUR ---
Nursing Progress Note Problem: Per 5150 pt. is here for SA by OD on street drugs after command hallucinations telling him to do so. Pt. states that he took "Fentanyl, black china, meth, 8 ball" in suicide attempt. Pt. states he feels hopeless. Pt. is also delusional, stating, "they won't give me my billion dollars". Pt. states, "I tried killing myself because Im a free michelle. They dont love me but I love them. Yes I do." Interventions: 1:1 assessment, therapeutic conversation, active listening, ensured contract for safety, medication administration/education/monitoring, encouraged oral hygiene,behavior monitoring and intervention as needed; reality orientation, distraction, redirection, limit setting, encouragement, positive reinforcement, and Q15 minute safety checks. Response: Patient was found sleeping at beginning of shift. Patient stated that he had a med BM earlier in the day and again at beginning of shift. Patient isolated in room sleeping through out shift.Patient took all medications without issue and refused to participate in snack. Patient tried again to have a BM before going back to bed. Plan: Pt is on a TCON, pt has a hearing set for 08/21/22, he is awaiting placement.
[2022-08-16 07:33] VITALS: BP 102/58
[2022-08-16] MEDS: docusate sod 100mg capsule PO SCH ×2 (08:19→20:47)
[2022-08-16] MEDS: buprenorphine/naloxone 2-0.5mg sublingual tablet SL SCH (08:19)
[2022-08-16] MEDS: haloperidol 5mg tablet PO SCH ×3 (08:19→20:48)
[2022-08-16] MEDS: divalproex 250mg tablet, delayed-release PO SCH ×2 (08:19→20:47)
[2022-08-16] MEDS: quetiapine 100mg tablet PO SCH ×4 (08:19→21:12)
[2022-08-16] MEDS: multivitamins, therapeutics tablet PO SCH (08:19)
[2022-08-16] MEDS: benztropine 1mg tablet PO SCH ×2 (08:19→20:48)
[2022-08-16] MEDS: LORazepam 1 MG tablet PO SCH ×3 (08:19→20:46)
[2022-08-16] MEDS: nicotine 21mg patch - 24 hr TD SCH (08:20)
[2022-08-16] MEDS: NICOTINE POLACRILEX 2 MG LOZENGE BC PRN ×2 (09:32→13:51)
[2022-08-16] MEDS: acetaminophen 325mg tablet PO PRN (10:35)
[2022-08-16] MEDS: lactulose 20gm/30ml cup PO PRN (10:55)
[2022-08-16] MEDS ORDERED: LORazepam 1 MG tablet PO ONE (15:30)
[2022-08-16] MEDS ORDERED: diphenhydrAMINE 25mg capsule PO ONE (15:30)
[2022-08-16] MEDS ORDERED: haloperidol 5mg tablet PO ONE (15:30)
--- NOTE | 2022-08-16 17:31 | NUR ---
Nursing Progress Note: Problem: Per 5150 pt. is here for SA by OD on street drugs after command hallucinations telling him to do so. Pt. states that he took "Fentanyl, black china, meth, 8 ball" in suicide attempt. Interventions: Maintained a safe and supportive environment, ensured contract for safety, provided clear and simple instructions, attempted to orient to reality, monitored behavior and provided intervention as needed, provided active listening and positive encouragement, encouraged independent performance of ADLs, and maintained Q 15min safety checks. Response: Patient was asleep at shift change, but was up for breakfast and morning med pass. He eats little food, because I have to lose weight. Patient perseverates on losing weight, his bowels, what other people are sayingon and on. He has nothing good to think about, so he thinks about bad stuff. Patient spends the day pacing with and without headphones on. He is advised to let his legs and ankle rest, but he doesnt listen, I have to keep walking to lose weight. Patient had a good morning, but in afternoon his anger boils over, and he explodes. Patient cant state a good reason why. Order received from Dr. Yeboah for oral B52: 2mg Ativan PO, 50mg Benadryl PO, and Haldol 5mg PO. Patient accepted medication and apologizes for scaring people. He then went and laid down for a while. Plan: Per provider, pt. continues to require a safe and supportive environment. Conservatorship is recommended.
[2022-08-16 19:00] VITALS: BP 96/54
[2022-08-16] MEDS: prazosin 1mg capsule PO SCH (20:46)
[2022-08-16] MEDS: traZODone 50mg tablet PO SCH (20:49)
[2022-08-16] MEDS: psyllium seed 3.4 gm packet PO SCH (20:50)
[2022-08-16] MEDS: polyethylene glycol 3350 17gm powd pack PO SCH (20:50)
--- NOTE | 2022-08-17 05:14 | NUR ---
Nursing Progress Note: Problem: Per 5150 pt. is here for SA by OD on street drugs after command hallucinations telling him to do so. Pt. states that he took "Fentanyl, black china, meth, 8 ball" in suicide attempt. Interventions: Maintained a safe and supportive environment, ensured contract for safety, provided clear and simple instructions, attempted to orient to reality, monitored behavior and provided intervention as needed, provided active listening and positive encouragement, encouraged independent performance of ADLs, and maintained Q 15min safety checks. Response: Patient was found sleeping at beginning of shift. Patient continued to sleep except for getting up for snack. Patient took all night medications without difficulty and returned to sleep. Patient stated he only had small BM today. Plan: Per provider, pt. continues to require a safe and supportive environment. Conservatorship is recommended.
[2022-08-17] MEDS: LORazepam 1 MG tablet PO SCH ×3 (07:54→20:21)
[2022-08-17] MEDS: docusate sod 100mg capsule PO SCH ×2 (07:54→20:21)
[2022-08-17] MEDS: benztropine 1mg tablet PO SCH ×2 (07:54→20:20)
[2022-08-17] MEDS: divalproex 250mg tablet, delayed-release PO SCH ×2 (07:54→20:20)
[2022-08-17] MEDS: haloperidol 5mg tablet PO SCH ×3 (07:55→20:20)
[2022-08-17] MEDS: buprenorphine/naloxone 2-0.5mg sublingual tablet SL SCH ×2 (07:55→15:22)
[2022-08-17] MEDS: nicotine 21mg patch - 24 hr TD SCH (07:55)
[2022-08-17] MEDS: quetiapine 100mg tablet PO SCH ×4 (07:55→20:25)
[2022-08-17] MEDS: multivitamins, therapeutics tablet PO SCH (07:55)
[2022-08-17] MEDS: acetaminophen 325mg tablet PO PRN ×3 (07:56→18:17)
[2022-08-17 08:00] VITALS: BP 127/81
[2022-08-17] MEDS: clonazePAM 1mg tablet PO PRN (09:18)
[2022-08-17] MEDS: ibuprofen tablet 400 MG TABLET PO PRN (13:47)
[2022-08-17] MEDS: benzocaine (Anbesol) 12ml bottle MM PRN ×2 (14:18→17:12)
[2022-08-17] MEDS ORDERED: benzocaine (Anbesol) 12ml bottle MM PRN (14:32)
--- NOTE | 2022-08-17 17:02 | NUR ---
Nursing Progress Note: Problem: Pt is a 71 y/o female admitted from [facility] to [facility] on a 5150 for DTS at 1540, escorted via wheelchair by patient furnace caretaker and security. She was placed on a 5150 for experiencing command auditory hallucinations telling her to hurt herself, and stating she is tired of living and that she just wants to . She has also been engaging in self-injurious behaviors. She has a hx of Schizoaffective D/O and multiple psychiatric hospitalizations. Interventions: Provide medication administration & medication management; Maintained a safe & supportive environment; Clear & simple instructions; Direction & encouragement regarding performance of ADLs; monitored behaviors & maintained clear boundaries; Patient physical assessment & 1:1 patient interview; Therapeutic conversation & active listening; Patient education & monitoring. Response: Response: Received patient who woke up at approximately 0745 this morning. Patient was pleasant and cooperative throughout the day. Patient is excited his birthday is tomorrow and also excited about his Court Date on 08/21/22 (). Patient Patient ate breakfast in the Community Room and participated in snacks. Patient took his 0800 medications as ordered by MD. Patient c/o left ankle pain rated at 4 on a scale of 1-10 and received Tylenol 0756. Patient reported at 0900 he received relief from the Tylenol. Patient c/o anxiety at 0918 and was slightly agitated at the time. Patient received Klonopin at 0918 and laid down on his bed and rested until snack time at 1100. Patient c/o tooth pain on the inside bottom left of his mouth. Anbesol applied at 1419. Spoke to Dr. Yeboah and informed him of patients mouth pain. Dr. Yeboah informed this Glass Technician/Installer to change the Anbesol from Q6h prn pain to Anbesol po q3h prn pain. Dr. Yeboah also informed this Glass Technician/Installer at 1500 to change the patients order for Buprenorph SL at 0800 to a second dose at 1500 SL each day. Patient received second dose and appeared much more comfortable at approximately 1530. Per Dr. Yeboah, he would like me to inform the Roller Mechanic Hilary to contact patients guardian tomorrow to get a dental appointment to have patients tooth that is painful assessed. Patient received a second dose of Tylenol at 1347 for c/o pain with relief. Patient ambulated up and down the hallway in between naps and meals. Plan: Plan: Crisis interruption, stabilization with medication adjustment, management and monitoring in a safe and therapeutic environment until stable. Patient has a Court Date on 08/21/22 ().
[2022-08-17 19:27] VITALS: BP 110/69
[2022-08-17] MEDS: haloperidol 5mg tablet PO PRN (19:31)
[2022-08-17] MEDS: prazosin 1mg capsule PO SCH (20:19)
[2022-08-17] MEDS: traZODone 50mg tablet PO SCH (20:20)
[2022-08-17] MEDS: psyllium seed 3.4 gm packet PO SCH (20:25)
[2022-08-17] MEDS: polyethylene glycol 3350 17gm powd pack PO SCH (20:25)
--- NOTE | 2022-08-18 00:59 | NUR ---
Nursing Progress Note: Problem: Per 5150 pt. is here for SA by OD on street drugs after command hallucinations telling him to do so. Pt. states that he took "Fentanyl, black china, meth, 8 ball" in suicide attempt. Interventions: Maintained a safe and supportive environment, ensured contract for safety, provided clear and simple instructions, attempted to orient to reality, monitored behavior and provided intervention as needed, provided active listening and positive encouragement, encouraged independent performance of ADLs, and maintained Q 15min safety checks. Response: Pt up on unit at start of shift. C/O hearing voices he said were "really bothering me" Pt conversation is disorganized difficult to understand when he tried to relate what the voices were saying. Given 5mg PRN Haldol. The pt reported good results. He was up on unit walking in halls ate snack in group room. Pleasant and cooperative with car. Not observed having conversations with other pts. Took all medications went to bed went to sleep. Plan: Per provider, pt. continues to require a safe and supportive environment. Conservatorship is recommended.
[2022-08-18] MEDS: nicotine 21mg patch - 24 hr TD SCH (07:39)
[2022-08-18] MEDS: LORazepam 1 MG tablet PO SCH ×3 (07:39→20:23)
[2022-08-18] MEDS: haloperidol 5mg tablet PO SCH ×3 (07:40→20:23)
[2022-08-18] MEDS: docusate sod 100mg capsule PO SCH ×2 (07:40→20:24)
[2022-08-18] MEDS: benztropine 1mg tablet PO SCH ×2 (07:40→20:23)
[2022-08-18] MEDS: buprenorphine/naloxone 2-0.5mg sublingual tablet SL SCH ×2 (07:41→14:31)
[2022-08-18] MEDS: quetiapine 100mg tablet PO SCH ×4 (07:41→20:24)
[2022-08-18] MEDS: multivitamins, therapeutics tablet PO SCH (07:41)
[2022-08-18] MEDS: divalproex 250mg tablet, delayed-release PO SCH ×2 (07:41→20:23)
[2022-08-18 08:00] VITALS: BP 126/79
[2022-08-18] MEDS: acetaminophen 325mg tablet PO PRN ×2 (08:10→15:33)
--- NOTE | 2022-08-18 08:43 | NUR ---
Emailed Christophe's Public Guardian, Magaly, and requested a dental appointment. JOEL Casanova
[2022-08-18] MEDS: lactulose 20gm/30ml cup PO PRN (09:20)
[2022-08-18] MEDS: benzocaine (Anbesol) 12ml bottle MM PRN ×2 (09:20→19:05)
[2022-08-18] MEDS: clonazePAM 1mg tablet PO PRN (09:58)
--- NOTE | 2022-08-18 17:06 | NUR ---
Nursing Progress Note: Problem: Per 5150 pt. is here for SA by OD on street drugs after command hallucinations telling him to do so. Pt. states that he took "Fentanyl, black china, meth, 8 ball" in suicide attempt. Interventions: Provide medication administration & medication management; Maintained a safe & supportive environment; Clear & simple instructions; Direction & encouragement regarding performance of ADLs; monitored behaviors & maintained clear boundaries; Patient physical assessment & 1:1 patient interview; Therapeutic conversation & active listening; Patient education & monitoring. Response: Received patient who today is His 37th Birthday!! Patient received Greetings for a Big Happy Birthday, by this Trashman when he woke up this morning. Patient had a big smile on his face and readily accepted his Happy Birthday Greeting. Patient denies SI/AH & VH today. Patient states he did have a small bowel movement yesterday, but was given Lactulose and reports having 3 large bowel movements this morning. Spoke with FLOR Richard, who contacted the Patients Guardian to schedule a dental appointment for this patient for his painful tooth. Patient reports I used to put rolled up Meth in between my cheek and my teeth and gums and hold it there. Patient requested Tylenol at 0810 for c/o Tooth Pain, rated at a 6 on a scale of 1-10 and received good relief approximately 1 hour after receiving the Tylenol. Patient received Anbesol for c/o tooth pain at 0920 and received some relief from Anbesol. Patient requested Klonopin for c/o anxiety at 1000 with immediate relief. Patient ambulated in the hallways and talked and laughed with peers who wished him a Happy Birthday throughout the daytime. Patient received 2nd dose of Tylenol at 1530 for c/o left ankle pain rated at a 6. Patient received relief from all Tylenol administered and he was happy throughout the day today. Plan: Plan: Crisis interruption, stabilization with medication adjustment, management and monitoring in a safe and therapeutic environment until stable. Patient has a Court Date on 08/21/22 ().
[2022-08-18 20:00] VITALS: BP 130/68
[2022-08-18] MEDS: prazosin 1mg capsule PO SCH (20:24)
[2022-08-18] MEDS: traZODone 50mg tablet PO SCH (20:24)
[2022-08-18] MEDS: polyethylene glycol 3350 17gm powd pack PO SCH (20:25)
[2022-08-18] MEDS: psyllium seed 3.4 gm packet PO SCH (20:25)
--- NOTE | 2022-08-19 01:27 | NUR ---
Nursing Progress Note: Problem: Per 5150 pt. is here for SA by OD on street drugs after command hallucinations telling him to do so. Pt. states that he took "Fentanyl, black china, meth, 8 ball" in suicide attempt. Interventions: Provide medication administration & medication management; Maintained a safe & supportive environment; Clear & simple instructions; Direction & encouragement regarding performance of ADLs; monitored behaviors & maintained clear boundaries; Patient physical assessment & 1:1 patient interview; Therapeutic conversation & active listening; Patient education & monitoring. Response: Pt is awake walking in the hallway at change of shift. Met with RN for 1:1 assessment at the bedside. He is smiling, stating that today is the best birthday he has had in a few years. States that he had a good day today. Pt socializing and pacing the halls. Compliant with medications, no AEs observed or reported. Denies A/VH, S/I, H/I. Plan: Plan: LPS court on 08/21/22
[2022-08-19 07:36] VITALS: BP 101/65
[2022-08-19] MEDS: LORazepam 1 MG tablet PO SCH ×3 (07:53→20:11)
[2022-08-19] MEDS: nicotine 21mg patch - 24 hr TD SCH (07:53)
[2022-08-19] MEDS: quetiapine 100mg tablet PO SCH ×4 (07:54→20:12)
[2022-08-19] MEDS: haloperidol 5mg tablet PO SCH ×3 (07:54→20:11)
[2022-08-19] MEDS: divalproex 250mg tablet, delayed-release PO SCH ×2 (07:54→20:11)
[2022-08-19] MEDS: benztropine 1mg tablet PO SCH ×2 (07:54→20:10)
[2022-08-19] MEDS: docusate sod 100mg capsule PO SCH ×2 (07:54→20:11)
[2022-08-19] MEDS: multivitamins, therapeutics tablet PO SCH (07:54)
[2022-08-19] MEDS: buprenorphine/naloxone 2-0.5mg sublingual tablet SL SCH ×2 (07:55→14:12)
[2022-08-19] MEDS ORDERED: iohexol 300mg/ml 100ml inj. ONE (08:00)
[2022-08-19] MEDS ORDERED: LIDOcaine 1% 30ml preserv. free vial ONE (08:00)
[2022-08-19] MEDS: NICOTINE POLACRILEX 2 MG LOZENGE BC PRN (08:34)
[2022-08-19] MEDS: acetaminophen 325mg tablet PO PRN (09:14)
[2022-08-19] MEDS: clonazePAM 1mg tablet PO PRN (11:25)
[2022-08-19] MEDS: haloperidol 5mg tablet PO PRN (12:06)
--- NOTE | 2022-08-19 13:30 | NUR ---
Dietary Note: Patient came to this Physical Education Aide and asked to change his diet to rice, vegetables and other miscellaneous items. Informed the patient, when he was not clear what diet he would like to be on, that I would call Og the Dietitian and speak with him first about the type of diets that they offer at [facility]. Left a message with Og to return the call and a decision could be made on patient's behalf. Per Dr. cMkenzie, it would be okay to change the patient's diet to what the patient ends up deciding in conjunction with the Dietitian. Will wait for the return phone call.
--- NOTE | 2022-08-19 15:43 | NUR ---
Therapeutic group, 1:1 This news writer spoke with client, and asked him to attend group, even for a few minutes. Client declined, was polite, stating he was stressed about his upcoming hearing with [facility] (Aug 21), as evidenced by self-reporting, facial expression, and choice of words. Client expressed wanting to know where he might be placed, and when, when he will be getting new cloths. Client indicated he spoke to [facility] Public Guardian Sri yesterday. This news writer used active empathic listening, encouraged client to talk about his goals.
--- NOTE | 2022-08-19 17:04 | NUR ---
Nursing Progress Note: Problem: Per 5150 pt. is here for SA by OD on street drugs after command hallucinations telling him to do so. Pt. states that he took "Fentanyl, black china, meth, 8 ball" in suicide attempt. Interventions: Provide medication administration & medication management; Maintained a safe & supportive environment; Clear & simple instructions; Direction & encouragement regarding performance of ADLs; monitored behaviors & maintained clear boundaries; Patient physical assessment & 1:1 patient interview; Therapeutic conversation & active listening; Patient education & monitoring. Response: Patient was up ambulating in the hallway at approximately 0620 this morning. Patient stated I had a really bad dream that was a bad nightmare where my brother killed someone and there was meth involved. Patient repeated this approximately 3 times throughout the daytime. Patient appeared upset and stated I am trying to forget about it. Patient ambulated in the hallway much of the morning and requested headphones. One of the Staff Nurses tuned the Departments Headphones into the Bluetooth on her phone and the songs that the Bluetooth Headphones were playing was a RAP Band called [employer]. This Melt Helper did not give permission for this patient to listen to these types of songs. The patient was already having difficulty with the nightmare he reported experiencing during the nighttime, so after lunch when he requested to again listen to this same band, and informed this Melt Helper of the Name of the Band and I informed him I did not believe it was a good decision at that time to again listen to the same music that one hour earlier was followed with the patient stating I just want to , I just want to kill myself, I dont care about this place anymore and Im going to punch and hurt someone really bad in here because I am sick of all of you. Patient was given Haldol and Klonopin an hour earlier and had started to work to relax patient when he asked to listen to the rap music again. Patient yelled this same information over and over up and down the hallway and Security was called. Patient was administered po Ativan, Haldol and Buprenorph at 1411 and then was talked to by Security at this time. Patient returned to his room to rest for approximately 40 minutes, then came out of his room and requested to talk with this Melt Helper. Patient apologized for his behavior and asked this Melt Helper for a hug afterwards. Patient then returned to his room with a smile on his face and slept in his bed for approximately 2 hours then ambulated in the hallway then again fell asleep in his bed. Patient resting at this time. Plan: Plan: Crisis interruption, stabilization with medication adjustment, management and monitoring in a safe and therapeutic environment until stable. Patient has a Court Date on 08/21/22 ().
[2022-08-19 20:00] VITALS: BP 102/56
[2022-08-19] MEDS: psyllium seed 3.4 gm packet PO SCH (20:09)
[2022-08-19] MEDS: polyethylene glycol 3350 17gm powd pack PO SCH (20:09)
[2022-08-19] MEDS: traZODone 50mg tablet PO SCH (20:10)
[2022-08-19] MEDS: prazosin 1mg capsule PO SCH (20:18)
--- NOTE | 2022-08-20 00:27 | NUR ---
Nursing Progress Note: Problem: Per 5150 pt. is here for SA by OD on street drugs after command hallucinations telling him to do so. Pt. states that he took "Fentanyl, black china, meth, 8 ball" in suicide attempt. Interventions: Provide medication administration & medication management; Maintained a safe & supportive environment; Clear & simple instructions; Direction & encouragement regarding performance of ADLs; monitored behaviors & maintained clear boundaries; Patient physical assessment & 1:1 patient interview; Therapeutic conversation & active listening; Patient education & monitoring. Response: Patient laying in bed at shift time. Patient self isolated to room entire shift. Patient reports being depressed over, "circumstances." Patient made minimal conversation and asked to sleep. Patient brought snack at snack time. Patient took evening meds w/o complications. Plan: Plan: Crisis interruption, stabilization with medication adjustment, management and monitoring in a safe and therapeutic environment until stable. Patient has a Court Date on 08/21/22 ().
[2022-08-20 07:21] VITALS: BP 97/57
[2022-08-20] MEDS: docusate sod 100mg capsule PO SCH ×2 (08:43→19:28)
[2022-08-20] MEDS: buprenorphine/naloxone 2-0.5mg sublingual tablet SL SCH ×2 (08:43→15:37)
[2022-08-20] MEDS: LORazepam 1 MG tablet PO SCH ×3 (08:43→19:29)
[2022-08-20] MEDS: haloperidol 5mg tablet PO SCH ×3 (08:43→19:30)
[2022-08-20] MEDS: divalproex 250mg tablet, delayed-release PO SCH ×2 (08:43→19:29)
[2022-08-20] MEDS: benztropine 1mg tablet PO SCH ×2 (08:43→19:28)
[2022-08-20] MEDS: multivitamins, therapeutics tablet PO SCH (08:43)
[2022-08-20] MEDS: quetiapine 100mg tablet PO SCH ×4 (08:43→19:29)
[2022-08-20] MEDS: nicotine 21mg patch - 24 hr TD SCH (08:44)
[2022-08-20] MEDS: acetaminophen 325mg tablet PO PRN ×2 (09:19→16:18)
[2022-08-20] MEDS: clonazePAM 1mg tablet PO PRN ×2 (09:46→18:27)
[2022-08-20] MEDS: NICOTINE POLACRILEX 2 MG LOZENGE BC PRN ×3 (09:48→17:24)
[2022-08-20] MEDS: benzocaine (Anbesol) 12ml bottle MM PRN ×2 (11:09→16:54)
[2022-08-20] MEDS: ibuprofen tablet 400 MG TABLET PO PRN (12:03)
[2022-08-20] MEDS: magnesium hydroxide 30ml (MOM) UD suspension PO PRN (13:38)
--- NOTE | 2022-08-20 15:20 | NUR ---
Therapeutic group DESCRIPTION Daily therapeutic groups support [facility] crisis-recovery environment, and meet medical necessity given the acuity of clients symptoms. Topic: psychosocial educationtriggers resulting in feelings (anxiety, fear, sadness), and what to do? Activity: creating a "child care supervisor" with emotions, then on the inside, an affirmation such as "I am enough." "I am brave." or sayings clients wrote themselves. Client participated in group as evidenced by peer interactions, conversation with peers and staff regarding triggers and trigger reactions, and how to cope in a health way. Client preferences to remain standing. INTERVENTION Therapeutic communication, peer support, peer validation, coping skills and psychosocial education. Secondarily--intellectual and physical activity, peer, and staff companionship, alleviating and discouraging isolation.
--- NOTE | 2022-08-20 17:48 | NUR ---
Nursing Progress Note: Problem: Per 5150 pt. is here for SA by OD on street drugs after command hallucinations telling him to do so. Pt. states that he took "Fentanyl, black china, meth, 8 ball" in suicide attempt. Interventions: Provide medication administration & medication management; Maintained a safe & supportive environment; Clear & simple instructions; Direction & encouragement regarding performance of ADLs; monitored behaviors & maintained clear boundaries; Patient physical assessment & 1:1 patient interview; Therapeutic conversation & active listening; Patient education & monitoring. Response: Received patient sleeping in bed at change of shift. Patient had a difficult time waking up and was late attending breakfast. Patient took medications, and states that he has bad dreams at night. Patient complaining of left upper tooth pain, and anbisol was administered with effectiveness. Patient also requested Klonopin, as he is anxious about his court date tomorrow. Patient paced the hallways listening to headphones for most of the day. The patient states that he does hear auditory hallucinations, either demons or angels throughout the day. At approximately 16:45, patient took offense with one of the CARPENTRY PROFESSIONAL's and yelled loudly at him. Patient was able to be redirected without further incident. Plan: Plan: Crisis interruption, stabilization with medication adjustment, management and monitoring in a safe and therapeutic environment until stable. Patient has a Court Date on 08/21/22 ().
[2022-08-20] MEDS: traZODone 50mg tablet PO SCH (19:27)
[2022-08-20] MEDS: psyllium seed 3.4 gm packet PO SCH (19:27)
[2022-08-20] MEDS: polyethylene glycol 3350 17gm powd pack PO SCH (19:27)
[2022-08-20] MEDS: prazosin 1mg capsule PO SCH (19:28)
[2022-08-20 20:00] VITALS: BP 141/87
--- NOTE | 2022-08-21 00:18 | NUR ---
Nursing Progress Note: Problem: Per 5150 pt. is here for SA by OD on street drugs after command hallucinations telling him to do so. Pt. states that he took "Fentanyl, black china, meth, 8 ball" in suicide attempt. Interventions: Provide medication administration & medication management; Maintained a safe & supportive environment; Clear & simple instructions; Direction & encouragement regarding performance of ADLs; monitored behaviors & maintained clear boundaries; Patient physical assessment & 1:1 patient interview; Therapeutic conversation & active listening; Patient education & monitoring. Response: Patient visibly upset at shift change. Patient pacing the hallways and becoming labile at times. the patient was able to talk to staff about what was bothering him and calm down. Patient given 2mg Klonopin with good effect. Patient was in a better mood after anxiety medical laboratory technicians and talk with staff. patient asked for a sandwich and chips. Patient took all meds w/o complications. Patient went to sleep shortly after. Plan: Plan: Crisis interruption, stabilization with medication adjustment, management and monitoring in a safe and therapeutic environment until stable. Patient has a Court Date on 08/21/22 ().
[2022-08-21 07:00] VITALS: BP 87/49
--- NOTE | 2022-08-21 07:30 | NUR ---
Reassessment: Pt continues eating well on Vegetarian diet, documented with mostly 100% PO intake while receiving double protein TID. LBM 08/20 receiving routine and PRN bowel care. No change to recommendations at this time. Will continue to follow. Recommendations: 1) Continue Vegetarian diet per pt request 2) Double protein TID 3) MVI supplementation per MD 4) Bowel care PRN 5) Weekly scaled weights Addendum: 08/21/22 at [address] Amended: Links added.
[2022-08-21] MEDS: buprenorphine/naloxone 2-0.5mg sublingual tablet SL SCH ×2 (08:13→15:20)
[2022-08-21] MEDS: divalproex 250mg tablet, delayed-release PO SCH ×2 (08:13→19:37)
[2022-08-21] MEDS: benztropine 1mg tablet PO SCH ×2 (08:13→19:39)
[2022-08-21] MEDS: LORazepam 1 MG tablet PO SCH ×3 (08:13→19:38)
[2022-08-21] MEDS: multivitamins, therapeutics tablet PO SCH (08:13)
[2022-08-21] MEDS: docusate sod 100mg capsule PO SCH ×2 (08:14→19:37)
[2022-08-21] MEDS: nicotine 21mg patch - 24 hr TD SCH (08:14)
[2022-08-21] MEDS: haloperidol 5mg tablet PO SCH ×3 (08:14→19:38)
[2022-08-21] MEDS: quetiapine 100mg tablet PO SCH ×4 (08:14→19:38)
[2022-08-21] MEDS: NICOTINE POLACRILEX 2 MG LOZENGE BC PRN ×2 (12:14→17:01)
[2022-08-21] MEDS: haloperidol 5mg tablet PO PRN (12:36)
[2022-08-21] MEDS: clonazePAM 1mg tablet PO PRN ×2 (12:37→19:53)
[2022-08-21] MEDS: ibuprofen tablet 400 MG TABLET PO PRN (12:49)
[2022-08-21] MEDS: acetaminophen 325mg tablet PO PRN (13:22)
--- NOTE | 2022-08-21 15:11 | NUR ---
[facility] CONSERVATORSHIP Christophe attended court via zoom today. He did not contest the conservatorship. He is on [facility] conservatorship. JOEL Casanova
--- NOTE | 2022-08-21 17:14 | NUR ---
Nursing Progress Note: Problem: Per 5150 pt. is here for SA by OD on street drugs after command hallucinations telling him to do so. Pt. states that he took "Fentanyl, black china, meth, 8 ball" in suicide attempt. Interventions: Provide medication administration & medication management; Maintained a safe & supportive environment; Clear & simple instructions; Direction & encouragement regarding performance of ADLs; monitored behaviors & maintained clear boundaries; Patient physical assessment & 1:1 patient interview; Therapeutic conversation & active listening; Patient education & monitoring. Response: Received patient sleeping in bed at change of shift. Patient awakens and takes his medications as ordered, then joins peers for breakfast in group room. Patient is anxious this morning for his 14:[address] appearance over conservatorship. Patient pacing hallways and suddenly starts yelling out at staff. 2 mg of Ativan and 5 mg of Haldol given to patient and he slowly calms down. Later he is apologetic to staff for outburst. Patient reports that he wants to get off conservatorship and live with his son. He has been pacing hallways since 8:30 this morning[address] After his court appearance, patient stated that he was glad that he is conserved, then he doesnt have to wonder anymore. Patient has been pacing unit with a peer this afternoon. Plan: Crisis interruption, stabilization with medication adjustment, management and monitoring in a safe and therapeutic environment until stable.
[2022-08-21 19:00] VITALS: BP 137/90
[2022-08-21] MEDS: polyethylene glycol 3350 17gm powd pack PO SCH (19:36)
[2022-08-21] MEDS: psyllium seed 3.4 gm packet PO SCH (19:36)
[2022-08-21] MEDS: traZODone 50mg tablet PO SCH (19:38)
[2022-08-21] MEDS: prazosin 1mg capsule PO SCH (19:39)
[2022-08-21] MEDS: ondansetron 4mg rapidly disintigrating tab PO PRN (20:00)
--- NOTE | 2022-08-22 00:42 | NUR ---
Nursing Progress Note: Problem: Per 5150 pt. is here for SA by OD on street drugs after command hallucinations telling him to do so. Pt. states that he took "Fentanyl, black china, meth, 8 ball" in suicide attempt. Interventions: Provide medication administration & medication management; Maintained a safe & supportive environment; Clear & simple instructions; Direction & encouragement regarding performance of ADLs; monitored behaviors & maintained clear boundaries; Patient physical assessment & 1:1 patient interview; Therapeutic conversation & active listening; Patient education & monitoring. Response:patient p-acing in hallway at shift change. Patient reports that he would like to take a shower and perseverates on this topic for a couple hours until the shower becomes available. Patient given evening meds w/o complications. Patient ate sandwich in his room. Patient states that he wants to get better and live with his son. The patient c/o anxiety, patient received 2mg Klonopin with good effect. Patient went t o bed a short time later. Plan: Plan: Crisis interruption, stabilization with medication adjustment, management and monitoring in a safe and therapeutic environment until stable.
[2022-08-22] MEDS: LORazepam 1 MG tablet PO SCH ×3 (07:39→21:11)
[2022-08-22] MEDS: quetiapine 100mg tablet PO SCH ×4 (07:39→21:11)
[2022-08-22] MEDS: haloperidol 5mg tablet PO SCH ×3 (07:39→21:12)
[2022-08-22] MEDS: benztropine 1mg tablet PO SCH ×2 (07:39→21:10)
[2022-08-22] MEDS: multivitamins, therapeutics tablet PO SCH (07:40)
[2022-08-22] MEDS: docusate sod 100mg capsule PO SCH ×2 (07:40→21:12)
[2022-08-22] MEDS: divalproex 250mg tablet, delayed-release PO SCH ×2 (07:40→21:10)
[2022-08-22] MEDS: nicotine 21mg patch - 24 hr TD SCH (07:41)
[2022-08-22] MEDS: buprenorphine/naloxone 2-0.5mg sublingual tablet SL SCH ×2 (07:41→15:00)
[2022-08-22 07:50] VITALS: BP 114/73
--- NOTE | 2022-08-22 09:55 | NUR ---
Sent updated notes to [facility] Public Guardian for placement purposes. JOEL Casanvoa
--- NOTE | 2022-08-22 14:52 | NUR ---
Nursing Progress Note: Problem : Per 5150 pt. is here for SA by OD on street drugs after command hallucinations telling him to do so. Pt. states that he took "Fentanyl, black china, meth, 8 ball" in suicide attempt. Interventions : Maintained a safe and supportive environment, ensured contract for safety, provided clear and simple instructions, attempted to orient to reality, monitored behavior and provided intervention as needed, provided active listening and positive encouragement, encouraged independent performance of ADLs, and maintained Q 15min safety checks. Response : Received Pt in bed sleeping w/o distress. Pt woke and was cooperative with vitals and returned to sleeping. Pt woke again for breakfast and ate well, and took AM meds before breakfast and w/o issue. Pt appears to be reacting well to the hearing yesterday in which he found out he will be conserved. Pt talking with staff freely and listening to music with headphones and pacing halls. Pt c/o mouth pain have holes in my mouth from eating Meth. Pt drank milks and other beverages for breakfast. Pt talked about past involvement with [employer] and satanic affiliation due to his mom being involved. Pt did not have any outbursts today and was overall pleasant and cooperative. Plan : Per Dr. Yeboah, pt. continues to require a safe and supportive environment. Pt has been conserved and [facility].
[2022-08-22] MEDS: clonazePAM 1mg tablet PO PRN (16:19)
[2022-08-22] MEDS: benzocaine (Anbesol) 12ml bottle MM PRN (16:21)
[2022-08-22 19:00] VITALS: BP 114/71
[2022-08-22] MEDS: psyllium seed 3.4 gm packet PO SCH (21:09)
[2022-08-22] MEDS: prazosin 1mg capsule PO SCH (21:09)
[2022-08-22] MEDS: polyethylene glycol 3350 17gm powd pack PO SCH (21:09)
[2022-08-22] MEDS: traZODone 50mg tablet PO SCH (21:10)
[2022-08-22] MEDS: ibuprofen tablet 400 MG TABLET PO PRN (21:11)
[2022-08-23] MEDS: acetaminophen 325mg tablet PO PRN ×3 (03:10→13:02)
--- NOTE | 2022-08-23 05:10 | NUR ---
Nursing Progress Note: Problem: Per 5150 pt. is here for SA by OD on street drugs after command hallucinations telling him to do so. Pt. states that he took "Fentanyl, black china, meth, 8 ball" in suicide attempt. Interventions: Maintained a safe and supportive environment, ensured contract for safety, provided clear and simple instructions, attempted to orient to reality, monitored behavior and provided intervention as needed, provided active listening and positive encouragement, encouraged independent performance of ADLs, and maintained Q 15min safety checks. Response: Pt resting in bed at start of shift. 1:1 assessment at bedside. Pt denies any MH symptoms SI/HI/AH/VH. When asked how he was doing he states doing good. Pt c/o of left side top and bottom toothache 03/16. HS meds administered along with PRN Motrin. Pt did not have snack and went to sleep. Pt awoke at 0300 and asked for Tylenol for his toothache then went back to sleep the rest of this shift. Plan: Per Dr. Yeboah, pt. continues to require a safe and supportive environment. Pt has been conserved and awaiting placement by [facility] Guardian.
[2022-08-23] MEDS: LORazepam 1 MG tablet PO SCH ×3 (07:09→20:53)
[2022-08-23] MEDS: buprenorphine/naloxone 2-0.5mg sublingual tablet SL SCH ×2 (07:09→14:53)
[2022-08-23] MEDS: haloperidol 5mg tablet PO SCH ×3 (07:09→20:52)
[2022-08-23] MEDS: quetiapine 100mg tablet PO SCH ×4 (07:10→21:00)
[2022-08-23] MEDS: benztropine 1mg tablet PO SCH ×2 (07:10→20:53)
[2022-08-23] MEDS: multivitamins, therapeutics tablet PO SCH (07:10)
[2022-08-23] MEDS: divalproex 250mg tablet, delayed-release PO SCH ×2 (07:10→20:52)
[2022-08-23] MEDS: docusate sod 100mg capsule PO SCH ×2 (07:10→20:52)
[2022-08-23] MEDS: nicotine 21mg patch - 24 hr TD SCH (07:11)
[2022-08-23 08:12] VITALS: BP 121/73
[2022-08-23] MEDS: lactose-reduced food (Ensure Enlive) - 237ml bottle PO SCH ×2 (13:22→17:36)
[2022-08-23] MEDS: amoxicillin 250mg capsule PO SCH ×2 (15:25→20:51)
--- NOTE | 2022-08-23 15:57 | NUR ---
Nursing Progress Note: Problem : Per 5150 pt. is here for SA by OD on street drugs after command hallucinations telling him to do so. Pt. states that he took "Fentanyl, black china, meth, 8 ball" in suicide attempt. Interventions : Maintained a safe and supportive environment, ensured contract for safety, provided clear and simple instructions, attempted to orient to reality, monitored behavior and provided intervention as needed, provided active listening and positive encouragement, encouraged independent performance of ADLs, and maintained Q 15min safety checks. Response : Patient was up soon after change of shift. Patient given coffee with hot chocolate. Patient given meds for tooth/teeth pain. Patient requesting medication often and sooner than time due. Patient is very needy. Patient is having a lot of problems with his pain control. Patient to be started on antibiotics today. Patient is frustrated for being in such a confined place but is constantly pacing. Patient denies suicidal ideation but feels hopeless because he is stuck here. Patient states he doesn't want to go to his mom's because he doesn't want to be on meth. Patient does not have the skills to self soothe/coping skills. RN gave patient several suggestions to ride the stationary bike, color, watch T.V., read. Patient would have none of it. Plan : Per Dr. Yeboah, pt. continues to require a safe and supportive environment. Pt has been conserved and awaiting placement by [facility] Public Guardian. Public Guardian is aware patient needs referral to a dentist.
[2022-08-23] MEDS: clonazePAM 1mg tablet PO PRN (16:31)
[2022-08-23] MEDS: haloperidol 5mg tablet PO PRN (16:31)
[2022-08-23 19:00] VITALS: BP 120/63
[2022-08-23] MEDS: prazosin 1mg capsule PO SCH (20:51)
[2022-08-23] MEDS: psyllium seed 3.4 gm packet PO SCH (20:51)
[2022-08-23] MEDS: polyethylene glycol 3350 17gm powd pack PO SCH (20:51)
[2022-08-23] MEDS: traZODone 50mg tablet PO SCH (20:52)
--- NOTE | 2022-08-24 04:08 | NUR ---
Nursing Progress Note: Problem: Per 5150 pt. is here for SA by OD on street drugs after command hallucinations telling him to do so. Pt. states that he took "Fentanyl, black china, meth, 8 ball" in suicide attempt. Interventions: Maintained a safe and supportive environment, ensured contract for safety, provided clear and simple instructions, attempted to orient to reality, monitored behavior and provided intervention as needed, provided active listening and positive encouragement, encouraged independent performance of ADLs, and maintained Q 15min safety checks. Response: Pt resting in bed at start of shift. 1:1 assessment at bedside. Pt denies any MH symptoms SI/HI/AH/VH. When asked how he was doing he states tired. Pt continues to have left side top and bottom toothache 10/10. Amoxicillin started tonight. HS meds administered. Pt did not have snack tonight. Pt slept through the night. Plan: Pt continues to require a safe and supportive environment. Pt has been conserved and awaiting placement by [facility] Guardian.
[2022-08-24] MEDS: multivitamins, therapeutics tablet PO SCH (07:50)
[2022-08-24] MEDS: benztropine 1mg tablet PO SCH ×2 (07:50→20:21)
[2022-08-24] MEDS: quetiapine 100mg tablet PO SCH ×4 (07:50→21:04)
[2022-08-24] MEDS: buprenorphine/naloxone 2-0.5mg sublingual tablet SL SCH ×2 (07:50→15:36)
[2022-08-24] MEDS: amoxicillin 250mg capsule PO SCH ×3 (07:51→20:22)
[2022-08-24] MEDS: haloperidol 5mg tablet PO SCH ×3 (07:52→20:23)
[2022-08-24] MEDS: divalproex 250mg tablet, delayed-release PO SCH ×2 (07:52→20:22)
[2022-08-24] MEDS: docusate sod 100mg capsule PO SCH ×2 (07:52→20:21)
[2022-08-24] MEDS: LORazepam 1 MG tablet PO SCH ×3 (07:53→20:22)
[2022-08-24] MEDS: nicotine 21mg patch - 24 hr TD SCH (07:53)
[2022-08-24 07:55] VITALS: BP 99/55
[2022-08-24] MEDS: lactose-reduced food (Ensure Enlive) - 237ml bottle PO SCH ×3 (08:53→18:09)
[2022-08-24] MEDS: acetaminophen 325mg tablet PO PRN (12:13)
--- NOTE | 2022-08-24 16:11 | NUR ---
Nursing Progress Note: Problem : Per 5150 pt. is here for SA by OD on street drugs after command hallucinations telling him to do so. Pt. states that he took "Fentanyl, black china, meth, 8 ball" in suicide attempt. Interventions : Maintained a safe and supportive environment, ensured contract for safety, provided clear and simple instructions, attempted to orient to reality, monitored behavior and provided intervention as needed, provided active listening and positive encouragement, encouraged independent performance of ADLs, and maintained Q 15min safety checks. Response : Patient was up soon after change of shift. Patient took his medication and was very subdued today. Patient did not complain of pain. Patient didn't ask for anything extra. Patient states he feels he is losing his voice. Patient is on Amoxicillin 500 mg TID for his infected tooth. Patient did not require additional pain medication or anti-anxiety medication. Patient is usually pacing all day but spent most of the day in bed. No fever. Plan : Per Dr. Yeboah, pt. continues to require a safe and supportive environment. Pt has been conserved and awaiting placement by [facility] Public Guardian. Public Guardian is aware patient needs referral to a dentist.
[2022-08-24 19:36] VITALS: BP 102/61
[2022-08-24 19:38] VITALS: BP 102/61
[2022-08-24] MEDS: prazosin 1mg capsule PO SCH (20:20)
[2022-08-24] MEDS: polyethylene glycol 3350 17gm powd pack PO SCH (20:20)
[2022-08-24] MEDS: traZODone 50mg tablet PO SCH (20:23)
[2022-08-24] MEDS: psyllium seed 3.4 gm packet PO SCH (20:24)
--- NOTE | 2022-08-24 21:35 | NUR ---
Nursing Progress Note: Problem : Per 5150 pt. is here for SA by OD on street drugs after command hallucinations telling him to do so. Pt. states that he took "Fentanyl, black china, meth, 8 ball" in suicide attempt. Interventions : Maintained a safe and supportive environment, ensured contract for safety, provided clear and simple instructions, attempted to orient to reality, monitored behavior and provided intervention as needed, provided active listening and positive encouragement, encouraged independent performance of ADLs, and maintained Q 15min safety checks. Response : Pt sleeping in bed at change of shift. Pt states he is feeling "ok" and doesnt want to get p for snacks tonight. Pt said his day was good and he just slept a lot. Pt declined to engage in much converstation, took his HS meds and states he wants to keep his nicotine patch on tonight. "Sometimes I like to leave it on." Pt states he has no needs tonight, declines pain prn for tooth. Pt went back to sleep. Plan : Per Dr. Yeboah, pt. continues to require a safe and supportive environment. Pt has been conserved and awaiting placement by [facility] Public Guardian. Public Guardian is aware patient needs referral to a dentist.
[2022-08-25] MEDS: buprenorphine/naloxone 2-0.5mg sublingual tablet SL SCH ×2 (07:37→15:06)
[2022-08-25] MEDS: haloperidol 5mg tablet PO SCH ×3 (07:37→20:28)
[2022-08-25] MEDS: amoxicillin 250mg capsule PO SCH ×3 (07:38→20:29)
[2022-08-25] MEDS: LORazepam 1 MG tablet PO SCH ×3 (07:38→20:28)
[2022-08-25] MEDS: multivitamins, therapeutics tablet PO SCH (07:38)
[2022-08-25] MEDS: quetiapine 100mg tablet PO SCH ×4 (07:38→20:43)
[2022-08-25] MEDS: divalproex 250mg tablet, delayed-release PO SCH ×2 (07:38→20:28)
[2022-08-25] MEDS: docusate sod 100mg capsule PO SCH ×2 (07:38→20:27)
[2022-08-25] MEDS: benztropine 1mg tablet PO SCH ×2 (07:38→20:28)
[2022-08-25] MEDS: nicotine 21mg patch - 24 hr TD SCH (07:39)
[2022-08-25 08:00] VITALS: BP 120/61
[2022-08-25] MEDS: lactose-reduced food (Ensure Enlive) - 237ml bottle PO SCH ×3 (08:00→18:00)
[2022-08-25] MEDS: clonazePAM 1mg tablet PO PRN (09:52)
[2022-08-25] MEDS: haloperidol 5mg tablet PO PRN (12:09)
[2022-08-25] MEDS: mag hydrox/Alum hydrox/simeth 30ml oral suspension PO PRN (15:06)
--- NOTE | 2022-08-25 16:15 | NUR ---
Nursing Progress Note: Problem : Per 5150 pt. is here for SA by OD on street drugs after command hallucinations telling him to do so. Pt. states that he took "Fentanyl, black china, meth, 8 ball" in suicide attempt. Interventions : Maintained a safe and supportive environment, ensured contract for safety, provided clear and simple instructions, attempted to orient to reality, monitored behavior and provided intervention as needed, provided active listening and positive encouragement, encouraged independent performance of ADLs, and maintained Q 15min safety checks. Response : Patient was up soon after change of shift. Patient was calm today and states he is not feeling well. Patient is afebrile but is feeling malaise and he feels like he is losing his voice. Patient is also having abdominal cramping. Patient tried to had a BM to no avail. RN had given patient Mylanta earlier for "sour stomach". Patient points to his umbilical region where the cramping is located. Patient is on Amoxicillin 500 TID for and infected tooth. Patient is walking around the unit more today than yesterday. Patient has not had a BM in a few days and RN believes his pain might be due to constipation. RN spoke with DANIEL Farr who ordered M.O.M. and an additional 200 mg colace. Plan : Per Dr. Yeboah, pt. continues to require a safe and supportive environment. Pt has been conserved and awaiting placement by [facility] Public Guardian. Public Guardian is aware patient needs referral to a dentist.
[2022-08-25] MEDS ORDERED: docusate sod 100mg capsule PO ONE (16:50)
[2022-08-25] MEDS: magnesium hydroxide 30ml (MOM) UD suspension PO PRN (17:00)
[2022-08-25] MEDS: lactulose 20gm/30ml cup PO PRN (17:00)
[2022-08-25 20:01] VITALS: BP 121/66
[2022-08-25] MEDS: prazosin 1mg capsule PO SCH (20:28)
[2022-08-25] MEDS: traZODone 50mg tablet PO SCH (20:28)
[2022-08-25] MEDS: psyllium seed 3.4 gm packet PO SCH (20:28)
[2022-08-25] MEDS: polyethylene glycol 3350 17gm powd pack PO SCH (20:29)
--- NOTE | 2022-08-25 21:05 | NUR ---
Nursing Progress Note: Problem : Per 5150 pt. is here for SA by OD on street drugs after command hallucinations telling him to do so. Pt. states that he took "Fentanyl, black china, meth, 8 ball" in suicide attempt. Interventions : Maintained a safe and supportive environment, ensured contract for safety, provided clear and simple instructions, attempted to orient to reality, monitored behavior and provided intervention as needed, provided active listening and positive encouragement, encouraged independent performance of ADLs, and maintained Q 15min safety checks. Response : Pt was in bed resting at change of shift. He reports feeling frustrated that he is still here and wants to go. States he is tired of being here and slept all day. Pt did have a large BM tonight and is no longer having cramping and stomach discomfort. Pt denies s/i, denies a/vh. does not appear to be RIS. Pt is pleasant and calm in conversation. Pt declined a snack, took HS meds and went back to sleep. Plan : Per Dr. Yeboah, pt. continues to require a safe and supportive environment. Pt has been conserved and awaiting placement by [facility] Public Guardian. Public Guardian is aware patient needs referral to a dentist.
[2022-08-26 08:00] VITALS: BP 99/44
[2022-08-26] MEDS: lactose-reduced food (Ensure Enlive) - 237ml bottle PO SCH ×3 (08:00→18:00)
[2022-08-26] MEDS: quetiapine 100mg tablet PO SCH ×4 (08:00→20:09)
[2022-08-26] MEDS: divalproex 250mg tablet, delayed-release PO SCH ×2 (08:30→20:09)
[2022-08-26] MEDS: LORazepam 1 MG tablet PO SCH ×3 (08:30→20:09)
[2022-08-26] MEDS: multivitamins, therapeutics tablet PO SCH (08:30)
[2022-08-26] MEDS: buprenorphine/naloxone 2-0.5mg sublingual tablet SL SCH ×2 (08:30→16:25)
[2022-08-26] MEDS: amoxicillin 250mg capsule PO SCH ×3 (08:31→20:08)
[2022-08-26] MEDS: haloperidol 5mg tablet PO SCH ×3 (08:31→20:09)
[2022-08-26] MEDS: benztropine 1mg tablet PO SCH ×2 (08:31→20:09)
[2022-08-26] MEDS: docusate sod 100mg capsule PO SCH ×2 (08:32→20:08)
[2022-08-26] MEDS: nicotine 21mg patch - 24 hr TD SCH (08:32)
[2022-08-26] MEDS: clonazePAM 1mg tablet PO PRN (11:13)
[2022-08-26] MEDS ORDERED: QUEtiapine 25mg tablet PO ONE (11:15)
[2022-08-26] MEDS: acetaminophen 325mg tablet PO PRN (16:26)
[2022-08-26] MEDS: benzocaine (Anbesol) 12ml bottle MM PRN (16:26)
--- NOTE | 2022-08-26 17:04 | NUR ---
Nursing Progress Note: Christophe Problem: Per 5150 pt. is here for SA by OD on street drugs after command hallucinations telling him to do so. Pt. states that he took "Fentanyl, black china, meth, 8 ball" in suicide attempt. Interventions: Maintained a safe and supportive environment, ensured contract for safety, provided clear and simple instructions, attempted to orient to reality, monitored behavior and provided intervention as needed, provided active listening and positive encouragement, encouraged independent performance of ADLs, and maintained Q 15min safety checks. Response: Received pt. asleep and awoke for his medication he denies SI, HI, AH, VH, currently no DC plan as placement is pending Pt. continues on PO ABX for dental infection, no ASE reported. He ate breakfast in the dining room with cohorts socializing at brief periods of time. Pt. approached typewriter assembler c/o anxiety and requested klonopin; PRN given. At 1200 he was picked up by his county rep. and was taken to the dentist. Pt. REBECA for lunch and returned later afternoon, he reported I sat in dental office for hours and couldnt be seen yamel I didnt have an ID Pt. was given afternoon meds, PRN Tylenol and anbesol. Pt. spent the remainder of shift in his room and rested until dinner. No f/u with dentist scheduled. Plan: Per provider, pt. continues to require a safe and supportive environment. Conservatorship is recommended.
[2022-08-26 19:27] VITALS: BP 97/58
[2022-08-26] MEDS: polyethylene glycol 3350 17gm powd pack PO SCH (20:08)
[2022-08-26] MEDS: psyllium seed 3.4 gm packet PO SCH (20:08)
[2022-08-26] MEDS: traZODone 50mg tablet PO SCH (20:12)
[2022-08-26] MEDS: prazosin 1mg capsule PO SCH (20:55)
--- NOTE | 2022-08-26 21:20 | NUR ---
Nursing Progress Note: Problem: Per 5150 pt. is here for SA by OD on street drugs after command hallucinations telling him to do so. Pt. states that he took "Fentanyl, black china, meth, 8 ball" in suicide attempt. Interventions: Maintained a safe and supportive environment, ensured contract for safety, provided clear and simple instructions, attempted to orient to reality, monitored behavior and provided intervention as needed, provided active listening and positive encouragement, encouraged independent performance of ADLs, and maintained Q 15min safety checks. Response: Pt was napping in his room at change of shift. He is calm and cooperative, states he couldnt get his tooth worked on because the [facility] gave his ID to his mom and they couldnt get a hold of his mom. Pt c/o tooth pain and was provided w/ambesol. Pt isolates to his room and napped. Pt declined to have snacks. Pt took hs meds and went to bed. Plan: Per provider, pt. continues to require a safe and supportive environment. Conservatorship is recommended.
[2022-08-27 07:28] VITALS: BP 93/57
[2022-08-27] MEDS: multivitamins, therapeutics tablet PO SCH (08:14)
[2022-08-27] MEDS: amoxicillin 250mg capsule PO SCH ×3 (08:14→20:12)
[2022-08-27] MEDS: docusate sod 100mg capsule PO SCH ×2 (08:14→19:25)
[2022-08-27] MEDS: buprenorphine/naloxone 2-0.5mg sublingual tablet SL SCH ×2 (08:15→14:02)
[2022-08-27] MEDS: divalproex 250mg tablet, delayed-release PO SCH ×2 (08:15→19:26)
[2022-08-27] MEDS: benztropine 1mg tablet PO SCH ×2 (08:15→19:25)
[2022-08-27] MEDS: quetiapine 100mg tablet PO SCH ×4 (08:15→20:12)
[2022-08-27] MEDS: LORazepam 1 MG tablet PO SCH ×3 (08:15→20:11)
[2022-08-27] MEDS: haloperidol 5mg tablet PO SCH ×3 (08:15→20:11)
[2022-08-27] MEDS: nicotine 21mg patch - 24 hr TD SCH (08:16)
[2022-08-27] MEDS: acetaminophen 325mg tablet PO PRN ×2 (08:22→13:41)
[2022-08-27] MEDS: lactose-reduced food (Ensure Enlive) - 237ml bottle PO SCH ×3 (08:24→18:00)
[2022-08-27] MEDS: benzocaine (Anbesol) 12ml bottle MM PRN ×2 (09:27→16:07)
[2022-08-27] MEDS: clonazePAM 1mg tablet PO PRN (14:59)
--- NOTE | 2022-08-27 16:48 | NUR ---
Nursing Progress Note: Christophe Problem: Per 5150 pt. is here for SA by OD on street drugs after command hallucinations telling him to do so. Pt. states that he took "Fentanyl, black china, meth, 8 ball" in suicide attempt. Interventions: Maintained a safe and supportive environment, ensured contract for safety, provided clear and simple instructions, attempted to orient to reality, monitored behavior and provided intervention as needed, provided active listening and positive encouragement, encouraged independent performance of ADLs, and maintained Q 15min safety checks. Response: Received pt. asleep and awoke for his medication he denies SI, HI, AH, VH, currently has no DC plan. He continues on PO ABX Amoxicillin for dental infection, he denies ASEs. Pt. was given Anbesol and Tylenol X2 this shift. Pt. ate all meals in the dining room with cohorts and is often observed socializing with cohorts. Pt. was heard yelling out in his room, he reported hearing voices; PRN Klonopin administered. Pt. was able to calm himself down and no further incidence took place. He spent most of the shift pacing and watching TV. Pt. has good hygiene, well groomed, and wears street clothes. Plan: Per provider, pt. continues to require a safe and supportive environment. Conservatorship is recommended.
[2022-08-27 19:00] VITALS: BP 131/91
[2022-08-27] MEDS: polyethylene glycol 3350 17gm powd pack PO SCH (20:11)
[2022-08-27] MEDS: prazosin 1mg capsule PO SCH (20:11)
[2022-08-27] MEDS: psyllium seed 3.4 gm packet PO SCH (20:11)
[2022-08-27] MEDS: traZODone 50mg tablet PO SCH (20:11)
--- NOTE | 2022-08-28 05:12 | NUR ---
Nursing Progress Note: Christophe Problem: Per 5150 pt. is here for SA by OD on street drugs after command hallucinations telling him to do so. Pt. states that he took "Fentanyl, black china, meth, 8 ball" in suicide attempt. Interventions: Maintained a safe and supportive environment, ensured contract for safety, provided clear and simple instructions, attempted to orient to reality, monitored behavior and provided intervention as needed, provided active listening and positive encouragement, encouraged independent performance of ADLs, and maintained Q 15min safety checks. Response: Patient was found pacing hallways talking to other patient. Patient was later heard walking down hallways singing very loudly to the music on his radio. Patient requested if he could have his medications earlier so he could go to bed right after snack since he had been up all day. Nurse had to wake up patient to give medications which he took with out issue. Nurse asked if patient was still feeling constipated. Patient stated yes even though he had gone this morning. Patient again started to talk about his weight loss goals and asked if he keeps walking until snack could he burn off the calories he would eat at snack. Patient got in line for snack. Patient ate snack and went to bed. .Plan: Per provider, pt. continues to require a safe and supportive environment. Conservatorship is recommended.
[2022-08-28] MEDS: amoxicillin 250mg capsule PO SCH ×3 (07:13→20:13)
[2022-08-28] MEDS: multivitamins, therapeutics tablet PO SCH (07:13)
[2022-08-28] MEDS: quetiapine 100mg tablet PO SCH ×4 (07:14→20:44)
[2022-08-28] MEDS: docusate sod 100mg capsule PO SCH ×2 (07:14→20:11)
[2022-08-28] MEDS: divalproex 250mg tablet, delayed-release PO SCH ×2 (07:14→20:13)
[2022-08-28] MEDS: buprenorphine/naloxone 2-0.5mg sublingual tablet SL SCH ×2 (07:14→14:07)
[2022-08-28] MEDS: LORazepam 1 MG tablet PO SCH ×3 (07:14→20:12)
[2022-08-28] MEDS: haloperidol 5mg tablet PO SCH ×3 (07:14→20:11)
[2022-08-28] MEDS: benztropine 1mg tablet PO SCH ×2 (07:15→20:12)
[2022-08-28] MEDS: nicotine 21mg patch - 24 hr TD SCH (07:15)
--- NOTE | 2022-08-28 07:25 | NUR ---
Reassessment: Pt continues on Vegetarian diet while receiving double protein TID, avg intake 80% of meals meeting est needs at this time. Noted that Ensure TID was ordered 08/23 r/t to an apparent tooth ache, though pt continues to eat well. This is not an appropriate interventions and ONS should be discontinued as it is not needed. LBM 08/26. Will continue to monitor. Recommendations: 1) Continue Vegetarian diet per pt request 2) Double protein TID 3) DISCONTINUE ENSURE TID 4) MVI supplementation per MD 5) Bowel care PRN 6) Weekly scaled weights Addendum: 08/28/22 at [address] Amended: Links added.
[2022-08-28] MEDS: acetaminophen 325mg tablet PO PRN ×3 (07:58→20:45)
[2022-08-28] MEDS: lactose-reduced food (Ensure Enlive) - 237ml bottle PO SCH ×3 (08:00→18:00)
[2022-08-28 08:04] VITALS: BP 92/50
[2022-08-28] MEDS: mag hydrox/Alum hydrox/simeth 30ml oral suspension PO PRN (09:09)
[2022-08-28] MEDS: haloperidol 5mg tablet PO PRN (11:59)
[2022-08-28] MEDS: benzocaine (Anbesol) 12ml bottle MM PRN ×2 (13:39→20:45)
--- NOTE | 2022-08-28 14:22 | NUR ---
Emailed Christophe Mckenzie's conservator, regarding his ID and if there is an upcoming dental appt. JOEL Casanova
[2022-08-28] MEDS: clonazePAM 1mg tablet PO PRN (15:10)
[2022-08-28] MEDS ORDERED: LORazepam 1 MG tablet PO ONE (15:20)
--- NOTE | 2022-08-28 16:02 | NUR ---
DENTAL APPT 09/04/2022 @ 3:00 p.m. in [place]. [facility] will transport again. Public Guardian has his ID and faxed a copy to [facility]. JOEL Casanova
--- NOTE | 2022-08-28 16:22 | NUR ---
Nursing Progress Note: Christophe Problem: Per 5150 pt. is here for SA by OD on street drugs after command hallucinations telling him to do so. Pt. states that he took "Fentanyl, black china, meth, 8 ball" in suicide attempt. Interventions: Maintained a safe and supportive environment, ensured contract for safety, provided clear and simple instructions, attempted to orient to reality, monitored behavior and provided intervention as needed, provided active listening and positive encouragement, encouraged independent performance of ADLs, and maintained Q 15min safety checks. Response: Received pt. asleep, he awoke to take his medications. Pt. reports his tooth is feeling better and PO ABX continues. Pt. paced/ exercised on the unit throughout the day. He was observed interacting and socializing with cohorts. Pt. has been pleasant and cooperative. He has received PRN Tylenol X2, ambesol X2; with good results. Pt. approached technical writer requesting something for anxiety and presented with good insight reporting I can feel tension on the wagner, because this guys pissed off, I see Iv acted like this before PRN given with good results Pt. denies SI, HI, AH, VH . He ate all meals in the dining room with cohorts, and napped X1 today. At 1530 pt. approached technical writer stating I need a shot because Im tired of being here Travel Director advised pt. a shot was not available and went retrieved Klonopin, when pt. began beating on the exit doors stating I want a shot, you all are a bunch of racists against black people and [place] [employer] Security was called pt. was escorted to a quiet area Klonopin was administered and a onetime order of Ativan 2mg was received; med was administered. Pt. was able to compose himself and joined cohorts for snacks. He has good hygiene, well groomed, and wears street clothes. Plan: Per provider, pt. continues to require a safe and supportive environment. Conservatorship is recommended.
[2022-08-28 19:00] VITALS: BP 107/58
[2022-08-28] MEDS: prazosin 1mg capsule PO SCH (20:11)
[2022-08-28] MEDS: traZODone 50mg tablet PO SCH (20:12)
[2022-08-28] MEDS: psyllium seed 3.4 gm packet PO SCH (20:46)
[2022-08-28] MEDS: polyethylene glycol 3350 17gm powd pack PO SCH (20:46)
--- NOTE | 2022-08-29 05:29 | NUR ---
Nursing Progress Note: Christophe Problem: Per 5150 pt. is here for SA by OD on street drugs after command hallucinations telling him to do so. Pt. states that he took "Fentanyl, black china, meth, 8 ball" in suicide attempt. Interventions: Maintained a safe and supportive environment, ensured contract for safety, provided clear and simple instructions, attempted to orient to reality, monitored behavior and provided intervention as needed, provided active listening and positive encouragement, encouraged independent performance of ADLs, and maintained Q 15min safety checks. Response: Patient was observed sleeping at change of shift. Patient continued to sleep until getting up to take night medications. Patient then got in line to eat snack. Patient then became worried that the cookie at snack will cause him to gain all the weight he lost back. Patient was found pacing in the wagner stating he was trying to burn off cookie calories. Patient later asked for Tylenol and abersol for tooth pain. Patient took pain medication and went to bed. Patient woke up at 4 am asking for water and retuned to pacing. Plan: Per provider, pt. continues to require a safe and supportive environment. Conservatorship is recommended.
[2022-08-29] MEDS: nicotine 21mg patch - 24 hr TD SCH (07:58)
[2022-08-29] MEDS: divalproex 250mg tablet, delayed-release PO SCH ×2 (07:58→20:28)
[2022-08-29] MEDS: amoxicillin 250mg capsule PO SCH ×3 (07:58→20:30)
[2022-08-29] MEDS: benztropine 1mg tablet PO SCH ×2 (07:59→20:28)
[2022-08-29] MEDS: buprenorphine/naloxone 2-0.5mg sublingual tablet SL SCH ×2 (07:59→14:32)
[2022-08-29] MEDS: haloperidol 5mg tablet PO SCH ×3 (07:59→20:31)
[2022-08-29] MEDS: quetiapine 100mg tablet PO SCH ×4 (07:59→21:03)
[2022-08-29] MEDS: LORazepam 1 MG tablet PO SCH ×3 (07:59→20:31)
[2022-08-29] MEDS: docusate sod 100mg capsule PO SCH ×2 (07:59→20:30)
[2022-08-29] MEDS: multivitamins, therapeutics tablet PO SCH (07:59)
[2022-08-29] MEDS: lactose-reduced food (Ensure Enlive) - 237ml bottle PO SCH ×3 (08:00→18:00)
[2022-08-29 08:11] VITALS: BP 123/67
[2022-08-29] MEDS: clonazePAM 1mg tablet PO PRN (09:08)
[2022-08-29] MEDS: acetaminophen 325mg tablet PO PRN ×2 (10:36→16:12)
--- NOTE | 2022-08-29 10:46 | NUR ---
Sent updated notes to Public Guardian for placement purposes (08/21-08/28). Requested LPS paperwork as well. JOEL Casanova
[2022-08-29] MEDS: NICOTINE POLACRILEX 2 MG LOZENGE BC PRN (13:36)
--- NOTE | 2022-08-29 18:01 | NUR ---
Nursing Progress Note: Problem: Per 5150 pt. is here for SA by OD on street drugs after command hallucinations telling him to do so. Pt. states that he took "Fentanyl, black china, meth, 8 ball" in suicide attempt. Interventions: Maintained a safe and supportive environment, ensured contract for safety, provided clear and simple instructions, attempted to orient to reality, monitored behavior and provided intervention as needed, provided active listening and positive encouragement, encouraged independent performance of ADLs, and maintained Q 15min safety checks. Response: Patient asleep, but wakes for breakfast and AM med pass. Hes compliant with all medications, then requests Tylenol for tooth pain, and Klonipin for anxiety. Patient pleasant and cooperative in the morning, but tends to get agitated later in the day. He has been here so long that he would rather go to senior care than have to stay here not knowing when his life will move forward. In senior care you at least get to go outside every day. You also know how long youre going to be there. This just isnt right. Patient spends the day walking the halls, putting himself in the middle of everything. He believes fighting is the solution to all disagreements. This is learned behavior that he cant seem to unlearn. Plan:Per provider, pt. continues to require a safe and supportive environment. Conservatorship is recommended.
[2022-08-29 19:00] VITALS: BP 124/67
[2022-08-29] MEDS: psyllium seed 3.4 gm packet PO SCH (20:26)
[2022-08-29] MEDS: polyethylene glycol 3350 17gm powd pack PO SCH (20:28)
[2022-08-29] MEDS: prazosin 1mg capsule PO SCH (20:29)
[2022-08-29] MEDS: traZODone 50mg tablet PO SCH (20:30)
--- NOTE | 2022-08-30 05:23 | NUR ---
Nursing Progress Note: Problem: Per 5150 pt. is here for SA by OD on street drugs after command hallucinations telling him to do so. Pt. states that he took "Fentanyl, black china, meth, 8 ball" in suicide attempt. Interventions: Maintained a safe and supportive environment, ensured contract for safety, provided clear and simple instructions, attempted to orient to reality, monitored behavior and provided intervention as needed, provided active listening and positive encouragement, encouraged independent performance of ADLs, and maintained Q 15min safety checks. Response: Patient was found sitting in community room socializing with other patient at change of shift. Patient allowed vitals to be taken and then started pacing halls with other patients. Patient retuned to community room to participate in snack. Patient was asked if he was feeling depressed and stated no just tired of being here and tired. Patient began asking nurse repetitive questions. Nurse would give patient an answer he would say okay walk away and then return shortly after asking the same question. Eventually patient retuned to bed were he was awaken to be given night medications. Patent took night medications, apologized for asking repeat questions and returned to bed. Plan:Per provider, pt. continues to require a safe and supportive environment. Conservatorship is recommended.
[2022-08-30 07:29] VITALS: BP 98/49
[2022-08-30] MEDS: LORazepam 1 MG tablet PO SCH ×3 (08:00→20:41)
[2022-08-30] MEDS: amoxicillin 250mg capsule PO SCH ×2 (08:00→13:59)
[2022-08-30] MEDS: divalproex 250mg tablet, delayed-release PO SCH ×2 (08:00→20:41)
[2022-08-30] MEDS: benztropine 1mg tablet PO SCH ×2 (08:00→20:41)
[2022-08-30] MEDS: quetiapine 100mg tablet PO SCH ×4 (08:00→21:10)
[2022-08-30] MEDS: lactose-reduced food (Ensure Enlive) - 237ml bottle PO SCH ×3 (08:00→18:00)
[2022-08-30] MEDS: nicotine 21mg patch - 24 hr TD SCH (08:00)
[2022-08-30] MEDS: docusate sod 100mg capsule PO SCH ×2 (08:00→20:42)
[2022-08-30] MEDS: haloperidol 5mg tablet PO SCH ×3 (08:00→20:41)
[2022-08-30] MEDS: multivitamins, therapeutics tablet PO SCH (08:00)
[2022-08-30] MEDS: buprenorphine/naloxone 2-0.5mg sublingual tablet SL SCH ×2 (08:00→14:00)
[2022-08-30] MEDS ORDERED: haloperidol 5mg tablet PO ONE (14:25)
[2022-08-30] MEDS ORDERED: LORazepam 1 MG tablet PO ONE (14:25)
[2022-08-30] MEDS ORDERED: diphenhydrAMINE 25mg capsule PO ONE (14:25)
[2022-08-30] MEDS: clonazePAM 1mg tablet PO PRN (14:26)
--- NOTE | 2022-08-30 14:30 | NUR ---
Pt is rapidly pacing the halls and making loud delusional accusations, "I'm going to heaven with the [employer]" then yelled at the end of the hallway. This typewriter assembler did not witness but heard the loud angry yelling and loud delusional statements while pacing the halls. Dr. Yeboah came out of his office observing pt. This nurse obtained one time medications from Dr. Yeboah then administered per orders.
[2022-08-30] MEDS: acetaminophen 325mg tablet PO PRN (17:06)
--- NOTE | 2022-08-30 17:50 | NUR ---
Problem: Per 5150 pt. is here for SA by OD on street drugs after command hallucinations telling him to do so. Pt. states that he took "Fentanyl, black china, meth, 8 ball" in suicide attempt. Interventions: Maintained a safe and supportive environment, ensured contract for safety, provided clear and simple instructions, attempted to orient to reality, monitored behavior and provided intervention as needed, provided active listening and positive encouragement, encouraged independent performance of ADLs, and maintained Q 15min safety checks. Response: Patient slept in this morning. He did not want breakfast. Patient continues to be obsessed with losing weight, so he doesnt want to eat. He continues to be compliant with all medications. Patient continues to walk all day, even when he hurts. He also has a cavity in his mouth that hurts, so he gets angry about that. Afternoons always seem to be hard for him and agitation comes easy for him. PRN Klonopin given with good results. Patient calms and resumes his walking. Plan:Per provider, pt. continues to require a safe and supportive environment. Conservatorship is recommended.
[2022-08-30 19:00] VITALS: BP_DIAS 113
[2022-08-30 19:30] VITALS: BP 113/74
[2022-08-30] MEDS: prazosin 1mg capsule PO SCH (20:40)
[2022-08-30] MEDS: polyethylene glycol 3350 17gm powd pack PO SCH (20:42)
[2022-08-30] MEDS: psyllium seed 3.4 gm packet PO SCH (20:42)
--- NOTE | 2022-08-31 02:36 | NUR ---
Nursing Progress Note Problem: Per 5150 pt. is here for SA by OD on street drugs after command hallucinations telling him to do so. Pt. states that he took "Fentanyl, black china, meth, 8 ball" in suicide attempt. Interventions: Maintained a safe and supportive environment, ensured contract for safety, provided clear and simple instructions, attempted to orient to reality, monitored behavior and provided intervention as needed, provided active listening and positive encouragement, encouraged independent performance of ADLs, and maintained Q 15min safety checks. Response: Patient was found pacing hallways at change of shift. Patient came up to nurse stating he was feeling happier since waking up. Patient said he was upset earlier due to him trying to call his mother multiple times and she's ignoring him. He hasn't seen his son in years and he was hoping see pictures of his son that his mother gets sent. Patient retuned to pacing the floor he had got in 30 laps earlier and he wanted to get in 20 more laps. Patient participated in snack time and went to bed. Patient was awaken to be given night medications, which he took without difficulty and retuned to bed. Plan:Per provider, pt. continues to require a safe and supportive environment.
[2022-08-31] MEDS: LORazepam 1 MG tablet PO SCH ×3 (07:58→20:36)
[2022-08-31] MEDS: benztropine 1mg tablet PO SCH ×2 (07:58→20:36)
[2022-08-31] MEDS: quetiapine 100mg tablet PO SCH ×4 (07:59→20:38)
[2022-08-31] MEDS: multivitamins, therapeutics tablet PO SCH (07:59)
[2022-08-31] MEDS: docusate sod 100mg capsule PO SCH ×2 (07:59→20:36)
[2022-08-31] MEDS: haloperidol 5mg tablet PO SCH ×3 (07:59→20:36)
[2022-08-31] MEDS: lactose-reduced food (Ensure Enlive) - 237ml bottle PO SCH ×3 (07:59→18:03)
[2022-08-31] MEDS: divalproex 250mg tablet, delayed-release PO SCH ×2 (07:59→20:36)
[2022-08-31] MEDS: buprenorphine/naloxone 2-0.5mg sublingual tablet SL SCH ×2 (07:59→16:08)
[2022-08-31 08:00] VITALS: BP 103/68
[2022-08-31] MEDS: nicotine 21mg patch - 24 hr TD SCH (08:00)
[2022-08-31] MEDS: NICOTINE POLACRILEX 2 MG LOZENGE BC PRN ×2 (09:35→18:42)
[2022-08-31] MEDS: acetaminophen 325mg tablet PO PRN ×2 (09:36→19:27)
[2022-08-31] MEDS: haloperidol 5mg tablet PO PRN (13:39)
[2022-08-31] MEDS: clonazePAM 1mg tablet PO PRN ×2 (13:39→18:42)
--- NOTE | 2022-08-31 17:15 | NUR ---
Nursing Progress Note: Problem : Per 5150 pt. is here for SA by OD on street drugs after command hallucinations telling him to do so. Pt. states that he took "Fentanyl, black china, meth, 8 ball" in suicide attempt. Interventions : Maintained a safe and supportive environment, ensured contract for safety, provided clear and simple instructions, attempted to orient to reality, monitored behavior and provided intervention as needed, provided active listening and positive encouragement, encouraged independent performance of ADLs, and maintained Q 15min safety checks. Response : Received Pt in bed sleeping w/o distress. Pt woke and was cooperative with vitals and returned to sleeping. Pt woke again for breakfast and ate well, and took AM meds w/o issue. Pt talkative this morning and pacing a bit. Pt thankful for staff and it being [facility]. Able to socialize appropriately with other Pts. Pt became tearful while watching [employer] game which reminded him of a cousin who overdosed on fentanyl in [place]. Pt sad talking about his son. He talked about getting out and getting a job and school. He also made statements about shooting himself with increased anxiety. Pt able to calm with pacing and talking with staff. Pt napped in late afternoon. Pt not aggressive toward others this shift. Plan : Per Dr. Yeboah, pt. continues to require a safe and supportive environment. Pt has been conserved and awaiting placement by [facility].
[2022-08-31 20:00] VITALS: BP 124/77
[2022-08-31] MEDS: prazosin 1mg capsule PO SCH (20:37)
[2022-08-31] MEDS: psyllium seed 3.4 gm packet PO SCH (21:00)
[2022-08-31] MEDS: polyethylene glycol 3350 17gm powd pack PO SCH (21:00)
--- NOTE | 2022-09-01 00:41 | NUR ---
Nursing Progress Note: Christophe Problem : Per 5150 pt. is here for SA by OD on street drugs after command hallucinations telling him to do so. Pt. states that he took "Fentanyl, black china, meth, 8 ball" in suicide attempt. Interventions : Maintained a safe and supportive environment, ensured contract for safety, provided clear and simple instructions, attempted to orient to reality, monitored behavior and provided intervention as needed, provided active listening and positive encouragement, encouraged independent performance of ADLs, and maintained Q 15min safety checks. Response : Received Pt pacing the unit, c/o being depressed and wanting something to help his anxiety. 2MG Klonopin given with good effect. Pt denied AH, was calm and cooperative with assessment. Pt c/o of tooth pain, PRN Tylenol given with good effect. Pt participated in snacks and took all HS medications without issue. Pt to bed shortly after med pass without any other complaints or needs. Plan : Per Dr. Yeboah, pt. continues to require a safe and supportive environment. Pt has been conserved and awaiting placement by [facility] Public [facility].
[2022-09-01] MEDS: lactose-reduced food (Ensure Enlive) - 237ml bottle PO SCH ×3 (08:00→17:44)
[2022-09-01] MEDS: benztropine 1mg tablet PO SCH ×2 (08:27→20:09)
[2022-09-01] MEDS: buprenorphine/naloxone 2-0.5mg sublingual tablet SL SCH ×2 (08:27→16:30)
[2022-09-01] MEDS: docusate sod 100mg capsule PO SCH ×2 (08:27→20:08)
[2022-09-01] MEDS: multivitamins, therapeutics tablet PO SCH (08:27)
[2022-09-01] MEDS: haloperidol 5mg tablet PO SCH ×3 (08:28→20:08)
[2022-09-01] MEDS: LORazepam 1 MG tablet PO SCH ×3 (08:28→20:08)
[2022-09-01] MEDS: divalproex 250mg tablet, delayed-release PO SCH ×2 (08:28→20:08)
[2022-09-01] MEDS: quetiapine 100mg tablet PO SCH ×4 (08:28→20:10)
[2022-09-01] MEDS: nicotine 21mg patch - 24 hr TD SCH (08:29)
[2022-09-01] MEDS: benzocaine (Anbesol) 12ml bottle MM PRN ×2 (12:18→18:00)
[2022-09-01] MEDS ORDERED: LORazepam 1 MG tablet PO ONE (12:59)
[2022-09-01] MEDS ORDERED: haloperidol 5mg tablet PO ONE (12:59)
[2022-09-01] MEDS ORDERED: diphenhydrAMINE 25mg capsule PO PRN (13:00)
--- NOTE | 2022-09-01 15:21 | NUR ---
Per dietary Ensure Enlive was ordered TID despite already being ordered in EMR and meal order was discontinued. TC to [facility] [[email or web address]], d/w skilled nursing case manager regarding patient's diet order and appropriate ONS ordering. Per aide pt not actually eating 100% of meals as documented. home hospice aide states pt continues with a toothache so PO intake of meals has declined. RD strongly encouraged discontinuing ONS IF PO intake of meals improves d/t ongoing product shortage and can send additional food on meal trays for satiety if needed rather than ONS. Also informed aide that Ensure Enlive is currently out of stock so it will be substituted with Ensure Plus HP. Per skilled nursing case manager pt on a vegetarian diet per pt request. Pt no longer to receive double protein with meals to prevent waste as pt not truly eating all of meal trays. [place] 09/01. Will continue to follow. Recommendations: 1) Continue Vegetarian diet per pt request 2) Discontinue ENSURE TID if PO intake of meals improves; sub Ensure Plus HP given product shortage 4) MVI supplementation per MD 5) Bowel care PRN 6) Weekly scaled weights Addendum: 09/01/22 at [address] Amended: Links added.
[2022-09-01] MEDS ORDERED: divalproex 250mg tablet, delayed-release PO ONE (16:00)
--- NOTE | 2022-09-01 17:10 | NUR ---
Nursing Progress Note: Problem: Per 5150 pt. is here for SA by OD on street drugs after command hallucinations telling him to do so. Pt. states that he took "Fentanyl, black china, meth, 8 ball" in suicide attempt. Interventions: Maintained a safe and supportive environment, ensured contract for safety, provided clear and simple instructions, attempted to orient to reality, monitored behavior and provided intervention as needed, provided active listening and positive encouragement, encouraged independent performance of ADLs, and maintained Q 15min safety checks. Response: Patient wakes and goes to the community room for breakfast. Hes compliant with medications, and barely consumes anything before he starts walking. Patient walks all morning building his anger until he starts talking about the devil and scaring his peers. He was given oral B52 at ~1330, which has little effect. His evil speech continues along with SI. He also sprinkles in some HI. Patient states that he was raised being taught by his mother that the Devil is all powerful; even more powerful than GOD. He was taught that worshipping the Devil is more beneficial than worshipping GOD. Because he doesnt want to be evil, the patient has a strong spiritual obrien going on inside him. Plan: Per provider, pt. continues to require a safe and supportive environment. Conservatorship is recommended.
[2022-09-01] MEDS: acetaminophen 325mg tablet PO PRN (19:10)
[2022-09-01] MEDS: polyethylene glycol 3350 17gm powd pack PO SCH (20:08)
[2022-09-01] MEDS: amoxicillin 250mg capsule PO SCH (20:08)
[2022-09-01] MEDS: prazosin 1mg capsule PO SCH (20:09)
[2022-09-01] MEDS: psyllium seed 3.4 gm packet PO SCH (20:28)
[2022-09-01 20:53] VITALS: BP 154/84
--- NOTE | 2022-09-02 00:55 | NUR ---
Nursing Progress Note: Christophe Problem: Per 5150 pt. is here for SA by OD on street drugs after command hallucinations telling him to do so. Pt. states that he took "Fentanyl, black china, meth, 8 ball" in suicide attempt. Interventions: Maintained a safe and supportive environment, ensured contract for safety, provided clear and simple instructions, attempted to orient to reality, monitored behavior and provided intervention as needed, provided active listening and positive encouragement, encouraged independent performance of ADLs, and maintained Q 15min safety checks. Response: Patient pacing the unit, mood elevated and states he is not going to sleep tonight. He and other peers are pacing the unit, talking loudly, in and out of the rec room watching football. Pt c/o of tooth pain, provider notified and ABX ordered and given. Pt up for snacks, HS medications given. Pt wanted to move rooms and did so without complaint. Pt went to bed shortly after med pass. Plan: Per provider, pt. continues to require a safe and supportive environment. Conservatorship is recommended.
[2022-09-02 07:00] VITALS: BP 106/82
[2022-09-02] MEDS: nicotine 21mg patch - 24 hr TD SCH (07:36)
[2022-09-02] MEDS: amoxicillin 250mg capsule PO SCH ×3 (07:36→20:06)
[2022-09-02] MEDS: buprenorphine/naloxone 2-0.5mg sublingual tablet SL SCH ×2 (07:37→15:04)
[2022-09-02] MEDS: haloperidol 5mg tablet PO SCH ×4 (07:37→20:09)
[2022-09-02] MEDS: docusate sod 100mg capsule PO SCH ×2 (07:37→20:08)
[2022-09-02] MEDS: LORazepam 1 MG tablet PO SCH ×4 (07:37→20:09)
[2022-09-02] MEDS: quetiapine 100mg tablet PO SCH ×4 (07:37→20:08)
[2022-09-02] MEDS: benztropine 1mg tablet PO SCH ×2 (07:38→20:10)
[2022-09-02] MEDS: multivitamins, therapeutics tablet PO SCH (07:44)
[2022-09-02] MEDS: divalproex 250mg tablet, delayed-release PO SCH ×3 (07:44→20:09)
[2022-09-02 08:00] VITALS: BP 106/82
[2022-09-02] MEDS: clonazePAM 1mg tablet PO PRN (08:06)
[2022-09-02] MEDS: lactose-reduced food (Ensure Enlive) - 237ml bottle PO SCH ×3 (08:07→18:02)
[2022-09-02] MEDS: benzocaine (Anbesol) 12ml bottle MM PRN ×3 (10:41→18:03)
[2022-09-02] MEDS: acetaminophen 325mg tablet PO PRN ×2 (10:42→15:05)
[2022-09-02] MEDS: NICOTINE POLACRILEX 2 MG LOZENGE BC PRN (16:16)
[2022-09-02] MEDS: magnesium hydroxide 30ml (MOM) UD suspension PO PRN (16:16)
--- NOTE | 2022-09-02 16:50 | NUR ---
Nursing Progress Note: Problem: Per 5150 pt. is here for SA by OD on street drugs after command hallucinations telling him to do so. Pt. states that he took "Fentanyl, black china, meth, 8 ball" in suicide attempt. Interventions: Maintained a safe and supportive environment, ensured contract for safety, provided clear and simple instructions, attempted to orient to reality, monitored behavior and provided intervention as needed, provided active listening and positive encouragement, encouraged independent performance of ADLs, and maintained Q 15min safety checks. Response: Received patient sleeping in bed at shift change. Patient awakens before breakfast and takes his medications as directed. Patient is complaining of being here so long, and how can he get out of here. Patient complaining of acute tooth pain. M.D. examined patients mouth and found nothing remarkable. Patient has a dentist appointment . Patient paces the hallways most of the day. Patient requested a Klonopin early because he was feeling agitated. Patients Suboxone was increased to 2 tablets, due to tooth pain. Patient received Milk of Magnesia for constipation. Nicotine lozenges for cravings. Plan: Per provider, pt. continues to require a safe and supportive environment. Conservatorship is recommended.
[2022-09-02 20:00] VITALS: BP 110/66
[2022-09-02] MEDS: prazosin 1mg capsule PO SCH (20:07)
[2022-09-02] MEDS: psyllium seed 3.4 gm packet PO SCH (20:10)
[2022-09-02] MEDS: polyethylene glycol 3350 17gm powd pack PO SCH (20:10)
--- NOTE | 2022-09-03 05:21 | NUR ---
Nursing Progress Note: Christophe Problem: Per 5150 pt. is here for SA by OD on street drugs after command hallucinations telling him to do so. Pt. states that he took "Fentanyl, black china, meth, 8 ball" in suicide attempt. Interventions: Maintained a safe and supportive environment, ensured contract for safety, provided clear and simple instructions, attempted to orient to reality, monitored behavior and provided intervention as needed, provided active listening and positive encouragement, encouraged independent performance of ADLs, and maintained Q 15min safety checks. Response: Received patient walking the halls at change of shift. Soon after, patient is observed asleep in bed .He woke up for vitals. Took all bedtime medications with no problems. Nicotine patch was removed. Patient went back to sleep. Slept through the night. Plan: Per provider, pt. continues to require a safe and supportive environment. Conservatorship is recommended.
[2022-09-03] MEDS: divalproex 250mg tablet, delayed-release PO SCH ×3 (07:58→19:43)
[2022-09-03] MEDS: LORazepam 1 MG tablet PO SCH ×4 (07:59→19:43)
[2022-09-03] MEDS: haloperidol 5mg tablet PO SCH ×4 (07:59→19:43)
[2022-09-03] MEDS: benztropine 1mg tablet PO SCH ×2 (07:59→19:44)
[2022-09-03] MEDS: buprenorphine/naloxone 2-0.5mg sublingual tablet SL SCH ×2 (07:59→15:26)
[2022-09-03 08:00] VITALS: BP 77/47
[2022-09-03] MEDS: docusate sod 100mg capsule PO SCH ×2 (08:00→19:42)
[2022-09-03] MEDS: amoxicillin 250mg capsule PO SCH ×3 (08:00→19:44)
[2022-09-03] MEDS: multivitamins, therapeutics tablet PO SCH (08:00)
[2022-09-03] MEDS: nicotine 21mg patch - 24 hr TD SCH (08:00)
[2022-09-03] MEDS: quetiapine 100mg tablet PO SCH ×4 (08:00→19:42)
[2022-09-03] MEDS: acetaminophen 325mg tablet PO PRN ×2 (08:34→15:27)
[2022-09-03] MEDS: lactose-reduced food (Ensure Enlive) - 237ml bottle PO SCH ×3 (08:36→18:14)
[2022-09-03] MEDS: clonazePAM 1mg tablet PO PRN (09:28)
[2022-09-03] MEDS: mag hydrox/Alum hydrox/simeth 30ml oral suspension PO PRN (16:18)
--- NOTE | 2022-09-03 17:56 | NUR ---
Nursing Progress Note: Problem: Per 5150 pt. is here for SA by OD on street drugs after command hallucinations telling him to do so. Pt. states that he took "Fentanyl, black china, meth, 8 ball" in suicide attempt. Interventions: Maintained a safe and supportive environment, ensured contract for safety, provided clear and simple instructions, attempted to orient to reality, monitored behavior and provided intervention as needed, provided active listening and positive encouragement, encouraged independent performance of ADLs, and maintained Q 15min safety checks. Response: Patient sleeping in bed at change of shift. Patient awakens before breakfast and takes his medications without incident. Patient requested Klonopin for agitation. Patients main concern is his tooth pain and finding pain relief. Patient paced the hallways for most of the day. At 16:20, patient started vomiting loudly. Patient believes it is from the Suboxone, and doesnt want to take it anymore. Instructed him to talk to provider tomorrow. Maalox given for dyspepsia with good result. Patient has been pleasant and cooperative this shift. Plan: Per provider, pt. continues to require a safe and supportive environment. Conservatorship is recommended.
[2022-09-03] MEDS: prazosin 1mg capsule PO SCH (19:41)
[2022-09-03 19:44] VITALS: BP 132/77
[2022-09-03] MEDS: polyethylene glycol 3350 17gm powd pack PO SCH (19:44)
[2022-09-03] MEDS: psyllium seed 3.4 gm packet PO SCH (19:44)
--- NOTE | 2022-09-04 00:20 | NUR ---
Nursing Progress Note: Christophe Problem: Per 5150 pt. is here for SA by OD on street drugs after command hallucinations telling him to do so. Pt. states that he took "Fentanyl, black china, meth, 8 ball" in suicide attempt. Interventions: Maintained a safe and supportive environment, ensured contract for safety, provided clear and simple instructions, attempted to orient to reality, monitored behavior and provided intervention as needed, provided active listening and positive encouragement, encouraged independent performance of ADLs, and maintained Q 15min safety checks. Response: Received patient awake at shift change. Patient observed walking around with roommate talking . During snack patient became agitated d/t being easily influenced by roommate to act out. Patient was agitated during medication administration and it took some encouraging to get him to take medications. 1:1 assessment patient denies SI,HI, AH, VH. patient went back to room and fell asleep shortly after snack. Plan: Per provider, pt. continues to require a safe and supportive environment. Conservatorship is recommended.
[2022-09-04 08:00] VITALS: BP 102/61
[2022-09-04] MEDS: LORazepam 1 MG tablet PO SCH ×4 (08:09→20:08)
[2022-09-04] MEDS: quetiapine 100mg tablet PO SCH ×4 (08:09→20:08)
[2022-09-04] MEDS: multivitamins, therapeutics tablet PO SCH (08:10)
[2022-09-04] MEDS: docusate sod 100mg capsule PO SCH ×2 (08:10→20:00)
[2022-09-04] MEDS: amoxicillin 250mg capsule PO SCH ×3 (08:10→20:07)
[2022-09-04] MEDS: divalproex 250mg tablet, delayed-release PO SCH ×3 (08:10→20:08)
[2022-09-04] MEDS: benztropine 1mg tablet PO SCH ×2 (08:10→20:07)
[2022-09-04] MEDS: haloperidol 5mg tablet PO SCH ×4 (08:10→20:08)
[2022-09-04] MEDS: lactose-reduced food (Ensure Enlive) - 237ml bottle PO SCH ×3 (08:11→18:00)
[2022-09-04] MEDS: buprenorphine/naloxone 2-0.5mg sublingual tablet SL SCH ×2 (08:11→12:42)
[2022-09-04] MEDS: nicotine 21mg patch - 24 hr TD SCH (08:14)
[2022-09-04] MEDS: acetaminophen 325mg tablet PO PRN (08:17)
[2022-09-04] MEDS: clonazePAM 1mg tablet PO PRN ×2 (10:55→21:59)
--- NOTE | 2022-09-04 15:21 | NUR ---
Pt was givem !%00 Addendum: 09/04/22 at 1524 by Blair Costello RN Disregard original note. Pt was given 1500 Suboxone before leaving for Dentist appt., per verbal order from Dr Vargas, as it was prior to its scheduled administration.
--- NOTE | 2022-09-04 16:47 | NUR ---
DENTAL APPT Received call from [facility] that Christophe had xrays and exam completed today, but needs prior authorization for deep cleaning, new crowns, extractions (wisdom teeth), and fillings. Prior authorization will take approximately 3 weeks. Gave M[facility]'s phone number to schedule next appointment. The dentist recommended Ibuprofen 600 mg TID, but that he doesn't need antibiotics.
--- NOTE | 2022-09-04 17:16 | NUR ---
Nursing Progress Note: Problem : Per 5150 pt. is here for SA by OD on street drugs after command hallucinations telling him to do so. Pt. states that he took "Fentanyl, black china, meth, 8 ball" in suicide attempt. Interventions : Maintained a safe and supportive environment, ensured contract for safety, provided clear and simple instructions, attempted to orient to reality, monitored behavior and provided intervention as needed, provided active listening and positive encouragement, encouraged independent performance of ADLs, and maintained Q 15min safety checks. Response : Received Pt in bed sleeping w/o distress at change of shift. Pt woke and was cooperative with vitals and paced halls. Pts tooth hurt so he only drank ensure for breakfast, yet later ate chips for snack. He took AM meds w/o issue and received PRN for anxiety and Tylenol for pain. He talked about getting money from his mom for [facility] I didnt think she cared, but she does. Pt cooperative with assessments and denies SI/HI and AHs at this time. Pt was picked up by [facility] public guardian to go to dentist apt. Pt was given 1500 Suboxone before he left per verbal order from Dr Vargas. Pt has not returned from dentist apt. as of the time of this note. Plan : Per Dr. Yeboah, pt. continues to require a safe and supportive environment. Pt has been conserved and awaiting placement by [facility].
[2022-09-04 20:00] VITALS: BP 158/109
[2022-09-04] MEDS: prazosin 1mg capsule PO SCH (20:08)
[2022-09-04] MEDS ORDERED: diphenhydrAMINE 50 mg/ml inj ONE (20:40)
[2022-09-04] MEDS ORDERED: haloperidol lactate 5mg/ml inj ONE (20:40)
[2022-09-04] MEDS ORDERED: LORazepam 2 mg/ml vial ONE (20:41)
[2022-09-04] MEDS ORDERED: diphenhydrAMINE 50 mg/ml inj IM ONE (20:45)
[2022-09-04] MEDS ORDERED: haloperidol lactate 5mg/ml inj IM ONE (20:45)
[2022-09-04] MEDS ORDERED: LORazepam 2 mg/ml vial IM ONE (20:45)
[2022-09-04] MEDS: polyethylene glycol 3350 17gm powd pack PO SCH (21:00)
[2022-09-04] MEDS: psyllium seed 3.4 gm packet PO SCH (21:00)
[2022-09-04 21:15] VITALS: BP 109/69
[2022-09-04 22:15] VITALS: BP 141/90
[2022-09-05] MEDS: acetaminophen 325mg tablet PO PRN ×4 (02:35→21:17)
[2022-09-05 04:40] VITALS: BP 119/75
--- NOTE | 2022-09-05 05:15 | NUR ---
Nursing Progress Note: Problem : Per 5150 pt. is here for SA by OD on street drugs after command hallucinations telling him to do so. Pt. states that he took "Fentanyl, black china, meth, 8 ball" in suicide attempt. Interventions : Maintained a safe and supportive environment, ensured contract for safety, provided clear and simple instructions, attempted to orient to reality, monitored behavior and provided intervention as needed, provided active listening and positive encouragement, encouraged independent performance of ADLs, and maintained Q 15min safety checks. Patient given chemical restrain at 2039 due to loud out burst and treating self and others. Patient was placed into physical restraint at 402 and placed into restrains again at 511 due to screaming and banging on windows. Response : Patient arrived on unit at 2004. Patient was agitated and yelling due to teeth not being pulled and being in pain. Security had to be called due to patients refusal to calm down. Patient was talking very fast and not making nonsensical speech. [Patient then began to threatened to harm staff. Patient refused all night medications. Patient contained to elevate behavior. PMark carvajal was called and B52 was ordered patient took B52 with out issue as well as prn Ativan.Over the next couple of hours patient was convinced to take rest of schedule night medications except for stool softeners and laxatives. Patient began to pace wagner with cyber security manager to help him calm down and eventfully nurse walked with patient. Patient was then given prn Klonopin due to him continue to complain of anxiety and fanning himself. Patient started to have slurred speech and missteps. Patient eventually sat down and ate some snacks. Patient finally agreed to lay down at 2100. Patient slept until 0230 and got up complain about tooth pain. Patient was given prn Tylenol at 0235. Patient continued to complain becoming more agitated and began yelling down the hallways. Patient was encouraged to lower voice and was offered abserol for tooth pain. Patient initially refused and eventually took prn. Patient continued to gt lower and kept stating he should have escape while he had the chance. Patient says next time he is et out he will make a run for it. Patient then started to treated staff and security was called again the for the four time. Prn Haldol was pulled and patient initially refused stating he was no longer taking medications. After offering headphones and patient resting in chair he agreed to take medications at 0345 and said he would lay down now. Patient laid down for 5 minutes then popped back up and returned to pacing hallways yelling. When patient was informed he would be placed in restraints if he didn't go back to bed he then began to through punches at staff and treated that his gang would come and slit everyone thoughts. Patient was placed in physical restraint at [address] Mckenzie. Patient was taken out at 0430. Patient continued to pace and sit in room. Patient began yelling again and screaming , patient also started banging on glass and screaming insults at staff. Patient was asked multiple times to calm down and patient only got louder. Security was called again and patient was replaced in restraints at 0410 , patient continues to be in restraints at this time with one on one monitoring. Patient continues to scream at staff. Plan : Per Dr. Yeboah, pt. continues to require a safe and supportive environment. Pt has been conserved and awaiting placement by [facility].
--- NOTE | 2022-09-05 06:40 | NUR ---
Pt. let out of physical restraints after education provided by staff regarding appropriate behaviors on the unit. He reported understanding and apologized for his previous behaviors, will continue to monitor pt. closely.
[2022-09-05 07:29] VITALS: BP 132/92
[2022-09-05] MEDS: lactose-reduced food (Ensure Enlive) - 237ml bottle PO SCH ×3 (08:00→18:08)
[2022-09-05] MEDS: benztropine 1mg tablet PO SCH ×2 (08:03→20:48)
[2022-09-05] MEDS: docusate sod 100mg capsule PO SCH ×2 (08:03→20:48)
[2022-09-05] MEDS: LORazepam 1 MG tablet PO SCH ×4 (08:03→20:52)
[2022-09-05] MEDS: divalproex 250mg tablet, delayed-release PO SCH ×3 (08:04→20:49)
[2022-09-05] MEDS: haloperidol 5mg tablet PO SCH ×4 (08:04→20:49)
[2022-09-05] MEDS: quetiapine 100mg tablet PO SCH ×4 (08:04→20:53)
[2022-09-05] MEDS: multivitamins, therapeutics tablet PO SCH (08:04)
[2022-09-05] MEDS: amoxicillin 250mg capsule PO SCH ×3 (08:04→20:50)
[2022-09-05] MEDS: nicotine 21mg patch - 24 hr TD SCH (08:05)
[2022-09-05] MEDS: buprenorphine/naloxone 2-0.5mg sublingual tablet SL SCH ×2 (08:06→15:56)
[2022-09-05] MEDS ORDERED: ibuprofen 200mg tablet PO SCH (08:30)
[2022-09-05] MEDS: mag hydrox/Alum hydrox/simeth 30ml oral suspension PO PRN (12:11)
--- NOTE | 2022-09-05 14:37 | NUR ---
DENTAL APPT [facility] 10/01/22 @ 4603
--- NOTE | 2022-09-05 17:52 | NUR ---
Nursing Progress Note: Problem : Per 5150 pt. is here for SA by OD on street drugs after command hallucinations telling him to do so. Pt. states that he took "Fentanyl, black china, meth, 8 ball" in suicide attempt. Pt. states he feels hopeless. Pt. is also delusional, stating, "they won't give me my billion dollars". Pt. states, "I tried killing myself because Im a free michelle. They dont love me but I love them. Yes I do." Interventions : Maintained a safe and supportive environment, ensured contract for safety, provided clear and simple instructions, monitored behavior and provided intervention as needed, provided active listening and positive encouragement,and maintained Q 15min safety checks. Response : Received pt. in restraints in the Observation Room at the beginning of the shift (see previous note). Pt. was able to contract for the safety of himself and others, however he continues to present as restless and is labile at intervals. Pt. continues to slur his words together and is difficult to understand; his thought process remains somewhat disorganized. Pt. perseverates on his teeth and his ongoing desire to discharge. He states irritably, "They might tear all my teeth out! It's from the meth, chewing, and soda." This technical report writer provided active listening and positive encouragement and pt. reported some contentment. A short time later, pt. approached this technical report writer and stated in an animated manner, "God bless you!" He continued to present with labile episodes throughout the shift, however no episodes of increased agitation were exhibited, and pt. was able be redirected as needed. Pt. was observed to be interacting appropriately with his peers. In the afternoon, pt. reported upper abdominal pain which appeared to be indigestion. His V/S were obtained and were WNL. Pt. was provided with PRN Maalox and a snack with effectiveness. Pt. was able to nap at intervals throughout the shift. He continues to report chronic tooth pain and PRN Tylenol was administered with effectiveness. Plan :Pt. continues to require a safe and supportive environment while awaiting placement.
[2022-09-05 19:00] VITALS: BP_SYST 97; BP_DIAS 33; BP_DIAS 61
[2022-09-05] MEDS: psyllium seed 3.4 gm packet PO SCH (20:49)
[2022-09-05] MEDS: prazosin 1mg capsule PO SCH (20:50)
[2022-09-05] MEDS: polyethylene glycol 3350 17gm powd pack PO SCH (20:52)
--- NOTE | 2022-09-06 03:29 | NUR ---
RN PROGRESS NOTE: LEGAL HOLD: T-Con for DTS/GD REASON FOR ADMIT: Client was admitted for making bizarre statements and behavior. Client reported delusions and command hallucinations. INTERVENTIONS: Q 15 min checks for safety. 1:1 assessments. Administer medications and monitor for side effects. THIS SHIFT: Client slept until PM medications. Client was cooperative and took all PM meds. Reported tooth pain and constipation. Client was unable to state when he had his last BM. Client took Miralax, Metamucil, and colace. He later requested 650 mg Tylenol Tab PO for tooth pain. Clients' affect is depressed. He got up briefly and walked in the wagner. He was mildly sedated. His primary concerns are tooth pain and his discharge plan. Client fell asleep w/o difficulty.
[2022-09-06 07:35] VITALS: BP 96/60
[2022-09-06] MEDS: quetiapine 100mg tablet PO SCH ×4 (07:50→20:30)
[2022-09-06] MEDS: benztropine 1mg tablet PO SCH ×2 (07:51→20:23)
[2022-09-06] MEDS: divalproex 250mg tablet, delayed-release PO SCH ×3 (07:51→20:22)
[2022-09-06] MEDS: docusate sod 100mg capsule PO SCH ×2 (07:51→20:22)
[2022-09-06] MEDS: multivitamins, therapeutics tablet PO SCH (07:51)
[2022-09-06] MEDS: nicotine 21mg patch - 24 hr TD SCH ×2 (07:52→08:00)
[2022-09-06] MEDS: amoxicillin 250mg capsule PO SCH ×3 (07:52→20:24)
[2022-09-06] MEDS: LORazepam 1 MG tablet PO SCH ×4 (07:52→20:24)
[2022-09-06] MEDS: buprenorphine/naloxone 2-0.5mg sublingual tablet SL SCH ×2 (07:52→15:14)
[2022-09-06] MEDS: haloperidol 5mg tablet PO SCH ×4 (07:52→20:24)
[2022-09-06] MEDS: lactose-reduced food (Ensure Enlive) - 237ml bottle PO SCH ×3 (08:00→18:00)
--- NOTE | 2022-09-06 11:01 | NUR ---
Nursing Progress Note: Problem: Per 5150 pt. is here for SA by OD on street drugs after command hallucinations telling him to do so. Pt. states that he took "Fentanyl, black china, meth, 8 ball" in suicide attempt. Pt. states he feels hopeless. Pt. is also delusional, stating, "they won't give me my billion dollars". Pt. states, "I tried killing myself because Im a free michelle. They dont love me but I love them. Yes I do." Interventions: Maintained a safe and supportive environment, ensured contract for safety, provided clear and simple instructions, observed for changes in usual behavior that may indicate increased suicide risk, provided medications as ordered, provided education on medications as needed, maintained Q 15min safety checks. Response: Pt slept through most of the shift. He took his medications as prescribed and asked to "hold off on his nicotine patch, I'm tired and I'm sleeping. Plan: Pt. continues to require a safe and supportive environment while awaiting placement.
[2022-09-06 19:23] VITALS: BP 121/56
[2022-09-06] MEDS: polyethylene glycol 3350 17gm powd pack PO SCH (20:20)
[2022-09-06] MEDS: psyllium seed 3.4 gm packet PO SCH (20:21)
[2022-09-06] MEDS: prazosin 1mg capsule PO SCH (20:22)
--- NOTE | 2022-09-07 05:16 | NUR ---
Nursing Progress Note: Problem: Per 5150 pt. is here for SA by OD on street drugs after command hallucinations telling him to do so. Pt. states that he took "Fentanyl, black china, meth, 8 ball" in suicide attempt. Pt. states he feels hopeless. Pt. is also delusional, stating, "they won't give me my billion dollars". Pt. states, "I tried killing myself because Im a free michelle. They dont love me but I love them. Yes I do." Interventions: Maintained a safe and supportive environment, ensured contract for safety, provided clear and simple instructions, observed for changes in usual behavior that may indicate increased suicide risk, provided medications as ordered, provided education on medications as needed, maintained Q 15min safety checks. Response: Patient was found sleeping at beginning of shift. Patient continued to sleep and self isolate through out shift. Patient had to be awaken to take night medications and retuned to bed. Plan: Pt. continues to require a safe and supportive environment while awaiting placement.
[2022-09-07] MEDS: benztropine 1mg tablet PO SCH ×2 (08:11→20:03)
[2022-09-07] MEDS: quetiapine 100mg tablet PO SCH ×4 (08:11→20:02)
[2022-09-07] MEDS: LORazepam 1 MG tablet PO SCH ×4 (08:12→20:03)
[2022-09-07] MEDS: buprenorphine/naloxone 2-0.5mg sublingual tablet SL SCH ×2 (08:12→15:22)
[2022-09-07] MEDS: amoxicillin 250mg capsule PO SCH ×3 (08:12→20:02)
[2022-09-07] MEDS: divalproex 250mg tablet, delayed-release PO SCH ×3 (08:12→20:02)
[2022-09-07] MEDS: haloperidol 5mg tablet PO SCH ×4 (08:12→20:03)
[2022-09-07] MEDS: docusate sod 100mg capsule PO SCH ×2 (08:13→20:04)
[2022-09-07] MEDS: multivitamins, therapeutics tablet PO SCH (08:13)
[2022-09-07] MEDS: lactose-reduced food (Ensure Enlive) - 237ml bottle PO SCH ×3 (08:15→18:00)
[2022-09-07] MEDS: nicotine 21mg patch - 24 hr TD SCH (08:29)
[2022-09-07 08:39] VITALS: BP 93/59
[2022-09-07] MEDS: NICOTINE POLACRILEX 2 MG LOZENGE BC PRN (12:32)
[2022-09-07] MEDS: clonazePAM 1mg tablet PO PRN (14:15)
--- NOTE | 2022-09-07 15:27 | NUR ---
Nursing Progress Note: Problem: Per 5150 pt. is here for SA by OD on street drugs after command hallucinations telling him to do so. Pt. states that he took "Fentanyl, black china, meth, 8 ball" in suicide attempt. Pt. states he feels hopeless. Pt. is also delusional, stating, "they won't give me my billion dollars". Pt. states, "I tried killing myself because Im a free michelle. They dont love me but I love them. Yes I do." Interventions: Maintained a safe and supportive environment, ensured contract for safety, provided clear and simple instructions, observed for changes in usual behavior that may indicate increased suicide risk, provided medications as ordered, provided education on medications as needed, maintained Q 15min safety checks. Response: 1:1 done at bedside, pt. cooperative and took scheduled medications with no issues. Pt denies A/VH. Denies S/HI but states, I just dont want to wake up, not because I want to be but because Im stuck here, even with my good behavior it gets me nowhere. Pt encouraged to continue doing what hes been doing and the time will come when placement is found. Pt receptive and agreeable to this. Pt attended meals. Arya PRN requested for anxiety at 215pm. Pt seen napping after this. No behaviors today. Plan: Pt. continues to require a safe and supportive environment while awaiting placement.
[2022-09-07 19:32] VITALS: BP 100/65
[2022-09-07] MEDS: polyethylene glycol 3350 17gm powd pack PO SCH (20:04)
[2022-09-07] MEDS: psyllium seed 3.4 gm packet PO SCH (20:04)
[2022-09-07] MEDS: prazosin 1mg capsule PO SCH (21:00)
--- NOTE | 2022-09-07 21:57 | NUR ---
Nursing Progress Note: Problem: Per 5150 pt. is here for SA by OD on street drugs after command hallucinations telling him to do so. Pt. states that he took "Fentanyl, black china, meth, 8 ball" in suicide attempt. Pt. states he feels hopeless. Pt. is also delusional, stating, "they won't give me my billion dollars". Pt. states, "I tried killing myself because Im a free michelle. They dont love me but I love them. Yes I do." Interventions: Maintained a safe and supportive environment, ensured contract for safety, provided clear and simple instructions, observed for changes in usual behavior that may indicate increased suicide risk, provided medications as ordered, provided education on medications as needed, maintained Q 15min safety checks. Response: Pt was napping at change of shift. Pt woke for vitals and states he is doing ok. Denies any tooth pain. Pt states he feels tired and wants to sleep. Pt took HS meds and declined a snack. Prazosin held due to low blood pressure. Pt went back to sleep. Plan: Pt. continues to require a safe and supportive environment while awaiting placement.
[2022-09-08 08:00] VITALS: BP 116/53
[2022-09-08] MEDS: docusate sod 100mg capsule PO SCH ×2 (08:05→20:54)
[2022-09-08] MEDS: haloperidol 5mg tablet PO SCH ×4 (08:05→20:56)
[2022-09-08] MEDS: quetiapine 100mg tablet PO SCH ×4 (08:05→20:58)
[2022-09-08] MEDS: buprenorphine/naloxone 2-0.5mg sublingual tablet SL SCH ×2 (08:05→14:06)
[2022-09-08] MEDS: amoxicillin 250mg capsule PO SCH ×3 (08:05→20:55)
[2022-09-08] MEDS: multivitamins, therapeutics tablet PO SCH (08:05)
[2022-09-08] MEDS: benztropine 1mg tablet PO SCH ×2 (08:06→20:56)
[2022-09-08] MEDS: LORazepam 1 MG tablet PO SCH ×4 (08:06→20:56)
[2022-09-08] MEDS: divalproex 250mg tablet, delayed-release PO SCH ×3 (08:06→20:55)
[2022-09-08] MEDS: nicotine 21mg patch - 24 hr TD SCH (08:07)
[2022-09-08] MEDS: lactose-reduced food (Ensure Enlive) - 237ml bottle PO SCH ×3 (08:11→18:24)
[2022-09-08] MEDS: acetaminophen 325mg tablet PO PRN (10:37)
--- NOTE | 2022-09-08 15:08 | NUR ---
Nursing Progress Note: Problem: Per 5150 pt. is here for SA by OD on street drugs after command hallucinations telling him to do so. Pt. states that he took "Fentanyl, black china, meth, 8 ball" in suicide attempt. Pt. states he feels hopeless. Pt. is also delusional, stating, "they won't give me my billion dollars". Pt. states, "I tried killing myself because Im a free michelle. They dont love me but I love them. Yes I do." Interventions: Maintained a safe and supportive environment, ensured contract for safety, provided clear and simple instructions, observed for changes in usual behavior that may indicate increased suicide risk, provided medications as ordered, provided education on medications as needed, maintained Q 15min safety checks. Response: Pt. resting in his bed at change of shift, appears to be sleeping. Awoke at 8am. Attended breakfast and lunch, 1:1 done and medications administered with no issues. Pt stated he slept fine but is miserable being here, he continues to voice how he has good behavior with no reward. Denies A/VH as well as S/HI. Pt requested his PRN Tylenol for tooth pain with effective results. Pt requesting medication for anxiety, noon Ativan administered. Pt went to the patio with staff. Later in the day he voiced he wants to just make a run for it, I got to get out of here. Nurse encouraged pt. to try to be patient and placemat will eventually be found. 1600 medications administered at this time for anxiety/agitation. Plan: Pt. continues to require a safe and supportive environment while awaiting placement. Addendum: 09/08/22 at 1600 by Erika De Paz RN PRN evangelista given, pt having anxiety and focusing about never getting out of here.
[2022-09-08] MEDS: clonazePAM 1mg tablet PO PRN (15:54)
[2022-09-08] MEDS: NICOTINE POLACRILEX 2 MG LOZENGE BC PRN (17:41)
--- NOTE | 2022-09-08 19:25 | NUR ---
F/u /: Pt PO ~100% most vegetarian diet w/ Ensure Plus High Protein TIDWM exceeding estimated energy needs. COLT d/w RN regarding returning to double protein portions on meals instead of utilizing ONS to meet needs and cancelling ONS if MD agreeable. Per RN, pt exercising more focused on trying to lose some wt though likely does not needs Ensure given intake hx. Dietary notified to send double protein portions on trays; will continue ONS until cancelled in EMR. LBM 09/05 per EMR. No further nutrition interventions at this time. Will continue to follow. Recommendations: 1) Continue Vegetarian diet per pt request; double protein portions TIDWM 2) Discontinue Ensure TID given adequate PO trends 3) MVI supplementation per MD 4) Bowel care PRN 5) Weekly scaled weights Addendum: 09/08/22 at [address] Amended: Links added.
[2022-09-08 20:37] VITALS: BP 99/59
[2022-09-08] MEDS: prazosin 1mg capsule PO SCH (20:54)
[2022-09-08] MEDS: psyllium seed 3.4 gm packet PO SCH (20:57)
[2022-09-08] MEDS: polyethylene glycol 3350 17gm powd pack PO SCH (20:57)
--- NOTE | 2022-09-09 03:12 | NUR ---
Nursing Progress Note: Problem: Per 5150 pt. is here for SA by OD on street drugs after command hallucinations telling him to do so. Pt. states that he took "Fentanyl, black china, meth, 8 ball" in suicide attempt. Pt. states he feels hopeless. Pt. is also delusional, stating, "they won't give me my billion dollars". Pt. states, "I tried killing myself because Im a free michelle. They dont love me but I love them. Yes I do." Interventions: Maintained a safe and supportive environment, ensured contract for safety, provided clear and simple instructions, observed for changes in usual behavior that may indicate increased suicide risk, provided medications as ordered, provided education on medications as needed, maintained Q 15min safety checks. Response: Sleeping in room at start of shift. Pt isolated in room sleeping all shift. Woke for meds declined to go to group room for snack. Said he is hearing voices "the hospital knows all about that" he said he is depressed "because I can't get out of here" Pt irritable took meds and went back to sleep. Plan: Pt. continues to require a safe and supportive environment while awaiting placement.
[2022-09-09] MEDS: nicotine 21mg patch - 24 hr TD SCH (07:41)
[2022-09-09] MEDS: quetiapine 100mg tablet PO SCH ×4 (07:42→20:16)
[2022-09-09] MEDS: amoxicillin 250mg capsule PO SCH ×2 (07:42→12:06)
[2022-09-09] MEDS: buprenorphine/naloxone 2-0.5mg sublingual tablet SL SCH ×2 (07:42→15:00)
[2022-09-09] MEDS: benztropine 1mg tablet PO SCH ×2 (07:42→20:12)
[2022-09-09] MEDS: docusate sod 100mg capsule PO SCH ×2 (07:42→20:13)
[2022-09-09] MEDS: divalproex 250mg tablet, delayed-release PO SCH ×3 (07:42→20:13)
[2022-09-09] MEDS: LORazepam 1 MG tablet PO SCH ×4 (07:42→20:13)
[2022-09-09] MEDS: haloperidol 5mg tablet PO SCH ×4 (07:42→20:14)
[2022-09-09] MEDS: multivitamins, therapeutics tablet PO SCH (07:42)
[2022-09-09 08:54] VITALS: BP 104/56
[2022-09-09] MEDS: clonazePAM 1mg tablet PO PRN (10:20)
--- NOTE | 2022-09-09 16:46 | NUR ---
Nursing Progress Note: Problem: Per 5150 pt. is here for SA by OD on street drugs after command hallucinations telling him to do so. Pt. states that he took "Fentanyl, black china, meth, 8 ball" in suicide attempt. Pt. states he feels hopeless. Pt. is also delusional, stating, "they won't give me my billion dollars". Pt. states, "I tried killing myself because Im a free michelle. They dont love me but I love them. Yes I do." Interventions: Maintained a safe and supportive environment, ensured contract for safety, provided clear and simple instructions, observed for changes in usual behavior that may indicate increased suicide risk, provided medications as ordered, provided education on medications as needed, maintained Q 15min safety checks. Response: Patient received resting quietly in bed. Joins his peers in the community room for meals and interacts appropriately. Continues to endorse AH. Perseverates on wanting to discharge and believes he is being punished by being made to stay here. Education provided on placement. CHANTEN Arya is helpful for anxiety. Patient spends most of the day pacing the unit and listening to headphones. Plan: Pt. continues to require a safe and supportive environment while awaiting placement.
--- NOTE | 2022-09-09 19:09 | NUR ---
Notified Dr Mckenzie of elevated ammonia of 65, no changes in orders at this time, Said he will address in the am.
[2022-09-09 19:47] VITALS: BP 95/64
[2022-09-09] MEDS: psyllium seed 3.4 gm packet PO SCH (20:14)
[2022-09-09] MEDS: polyethylene glycol 3350 17gm powd pack PO SCH (20:15)
[2022-09-09] MEDS: prazosin 1mg capsule PO SCH (20:15)
--- NOTE | 2022-09-10 00:54 | NUR ---
Nursing Progress Note: Problem: Per 5150 pt. is here for SA by OD on street drugs after command hallucinations telling him to do so. Pt. states that he took "Fentanyl, black china, meth, 8 ball" in suicide attempt. Pt. states he feels hopeless. Pt. is also delusional, stating, "they won't give me my billion dollars". Pt. states, "I tried killing myself because Im a free michelle. They dont love me but I love them. Yes I do." Interventions: Maintained a safe and supportive environment, ensured contract for safety, provided clear and simple instructions, observed for changes in usual behavior that may indicate increased suicide risk, provided medications as ordered, provided education on medications as needed, maintained Q 15min safety checks. Response: Patient up in halls at start of shift. Minimal mumbling response to questions. Declined to come to group room for snack already in bed. Took all medications cooperative with care and went to sleep. Plan: Pt. continues to require a safe and supportive environment while awaiting placement.
[2022-09-10 07:41] VITALS: BP 109/66
[2022-09-10] MEDS: nicotine 21mg patch - 24 hr TD SCH ×3 (08:00→08:59)
[2022-09-10] MEDS: divalproex 250mg tablet, delayed-release PO SCH ×3 (08:38→20:45)
[2022-09-10] MEDS: buprenorphine/naloxone 2-0.5mg sublingual tablet SL SCH ×2 (08:38→16:00)
[2022-09-10] MEDS: quetiapine 100mg tablet PO SCH ×4 (08:39→20:52)
[2022-09-10] MEDS: haloperidol 5mg tablet PO SCH ×4 (08:39→20:52)
[2022-09-10] MEDS: LORazepam 1 MG tablet PO SCH ×4 (08:39→20:47)
[2022-09-10] MEDS: docusate sod 100mg capsule PO SCH ×2 (08:40→20:47)
[2022-09-10] MEDS: benztropine 1mg tablet PO SCH ×2 (08:40→20:47)
[2022-09-10] MEDS: multivitamins, therapeutics tablet PO SCH (08:40)
--- NOTE | 2022-09-10 14:46 | NUR ---
PLACEMENT UPDATE Christophe's packet is at the following for review: [facility] in [place], [facility], and [facility]. He has been declined at [facility], [facility] in [place], and [facility]. JEOL Casanova
[2022-09-10] MEDS: clonazePAM 1mg tablet PO PRN (14:48)
--- NOTE | 2022-09-10 15:26 | NUR ---
Nursing Progress Note: Problem: Per 5150 pt. is here for SA by OD on street drugs after command hallucinations telling him to do so. Pt. states that he took "Fentanyl, black china, meth, 8 ball" in suicide attempt. Pt. states he feels hopeless. Pt. is also delusional, stating, "they won't give me my billion dollars". Pt. states, "I tried killing myself because Im a free michelle. They dont love me but I love them. Yes I do." Interventions: Maintained a safe and supportive environment, ensured contract for safety, provided clear and simple instructions, observed for changes in usual behavior that may indicate increased suicide risk, provided medications as ordered, provided education on medications as needed, maintained Q 15min safety checks. Response: Patient received resting quietly in bed. Cooperative with assessment and medications. Denies any mental health symptoms. Joins his peers in the community room for meals and interacts appropriately. After breakfast the patient takes a nap. Verbalizes feeling depressed due to being stuck here. Patient isolates to his room all day and appears to be napping off and on. Complains of increased anxiety in the afternoon. PRN Klonopin is given with good effect. Plan: Pt. continues to require a safe and supportive environment while awaiting placement.
[2022-09-10] MEDS: haloperidol 5mg tablet PO PRN (17:08)
[2022-09-10 20:00] VITALS: BP 117/65
[2022-09-10] MEDS: prazosin 1mg capsule PO SCH (20:46)
[2022-09-10] MEDS: psyllium seed 3.4 gm packet PO SCH (20:50)
[2022-09-10] MEDS: polyethylene glycol 3350 17gm powd pack PO SCH (20:50)
--- NOTE | 2022-09-11 04:43 | NUR ---
Nursing Progress Note: Problem: Per 5150 pt. is here for SA by OD on street drugs after command hallucinations telling him to do so. Pt. states that he took "Fentanyl, black china, meth, 8 ball" in suicide attempt. Pt. states he feels hopeless. Pt. is also delusional, stating, "they won't give me my billion dollars". Pt. states, "I tried killing myself because Im a free michelle. They dont love me but I love them. Yes I do." Interventions: Maintained a safe and supportive environment, ensured contract for safety, provided clear and simple instructions, observed for changes in usual behavior that may indicate increased suicide risk, provided medications as ordered, provided education on medications as needed, maintained Q 15min safety checks. Response: Patient spent all shift self isolating and sleeping in room. Patient was awaken to take night medications and returned to bed. Patient requested no prn medications. Plan: Pt. continues to require a safe and supportive environment while awaiting placement.
[2022-09-11 07:07] VITALS: BP 107/67
[2022-09-11 07:18] VITALS: BP 107/67
[2022-09-11] MEDS: nicotine 21mg patch - 24 hr TD SCH ×2 (08:00→08:07)
[2022-09-11] MEDS: LORazepam 1 MG tablet PO SCH ×4 (08:07→20:25)
[2022-09-11] MEDS: quetiapine 100mg tablet PO SCH ×4 (08:07→20:43)
[2022-09-11] MEDS: haloperidol 5mg tablet PO SCH ×5 (08:07→21:00)
[2022-09-11] MEDS: benztropine 1mg tablet PO SCH ×2 (08:08→20:43)
[2022-09-11] MEDS: buprenorphine/naloxone 2-0.5mg sublingual tablet SL SCH ×2 (08:08→16:13)
[2022-09-11] MEDS: docusate sod 100mg capsule PO SCH ×2 (08:08→20:42)
[2022-09-11] MEDS: divalproex 250mg tablet, delayed-release PO SCH ×3 (08:08→20:42)
[2022-09-11] MEDS: multivitamins, therapeutics tablet PO SCH (08:08)
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
[2022-09-11] MEDS: clonazePAM 1mg tablet PO PRN (17:16)
[2022-09-11] MEDS: benzocaine (Anbesol) 12ml bottle MM PRN (19:06)
--- NOTE | 2022-09-11 19:14 | NUR ---
Nursing Progress Note: Problem: Per 5150 pt. is here for SA by OD on street drugs after command hallucinations telling him to do so. Pt. states that he took "Fentanyl, black china, meth, 8 ball" in suicide attempt. Pt. states he feels hopeless. Pt. is also delusional, stating, "they won't give me my billion dollars". Pt. states, "I tried killing myself because Im a free michelle. They dont love me but I love them. Yes I do." Interventions: Maintained a safe and supportive environment, ensured contract for safety, provided clear and simple instructions, observed for changes in usual behavior that may indicate increased suicide risk, provided medications as ordered, provided education on medications as needed, maintained Q 15min safety checks. Response: Assumed care at shift change. Patient reported very upset at shift change. Interview 1:1 at shift change in patients room. Patient is awake, he is well oriented. Patient speaks about his frustration about wanting to go home. In addition he has a complaint of gum pain in his mouth. Anbisol was applied. The patient was redirected. He is cooperative. Patient states no BM today. He denies hallucinations. He denies S/I or H/I. Patient speaks with a soft voice, it is regular. Patient states that he ate his full dinner. No BM reported today. All PRN's for anxiety are timed out for now as most were given recently on day shift. Patient is cooperative with this real estate underwriter. Plan: Pt. continues to require a safe and supportive environment while awaiting placement. Addendum: 09/11/22 at 1926 by Eagle Schulte RN Anbesol.
[2022-09-11 20:00] VITALS: BP 92/47
[2022-09-11] MEDS: prazosin 1mg capsule PO SCH (20:17)
[2022-09-11] MEDS: psyllium seed 3.4 gm packet PO SCH ×2 (20:18→21:00)
[2022-09-11] MEDS: lactulose 20gm/30ml cup PO PRN (20:40)
[2022-09-11] MEDS: polyethylene glycol 3350 17gm powd pack PO SCH (20:44)
[2022-09-12] MEDS: clonazePAM 1mg tablet PO PRN (05:40)
[2022-09-12] MEDS: haloperidol 5mg tablet PO PRN (05:40)
--- NOTE | 2022-09-12 06:13 | NUR ---
Patient complains of feeling "out of my body, I'm scared, the devil, I feel like jumping out of a window. Patient was cooperative and brought his fears and complaints to this filing writer. This filing writer used calming measures. PO Haldol and Klonopin given. Patient was reassured that he was safe and medications should be helping soon.
[2022-09-12] MEDS: multivitamins, therapeutics tablet PO SCH (07:47)
[2022-09-12] MEDS: LORazepam 1 MG tablet PO SCH ×4 (07:47→21:05)
[2022-09-12] MEDS: haloperidol 5mg tablet PO SCH ×4 (07:47→19:42)
[2022-09-12] MEDS: docusate sod 100mg capsule PO SCH ×2 (07:47→21:06)
[2022-09-12] MEDS: benztropine 1mg tablet PO SCH ×2 (07:47→21:05)
[2022-09-12] MEDS: quetiapine 100mg tablet PO SCH ×4 (07:47→21:05)
[2022-09-12] MEDS: divalproex 250mg tablet, delayed-release PO SCH ×3 (07:48→21:05)
[2022-09-12] MEDS: buprenorphine/naloxone 2-0.5mg sublingual tablet SL SCH ×2 (07:48→14:01)
[2022-09-12] MEDS: nicotine 21mg patch - 24 hr TD SCH (07:55)
[2022-09-12 08:00] VITALS: BP 104/69
--- NOTE | 2022-09-12 09:18 | NUR ---
Sent updated notes to [facility] for placement purposes (08/28/22-09/11/22). JOEL Casanova
[2022-09-12] MEDS ORDERED: LORazepam 1 MG tablet PO ONE (11:35)
[2022-09-12] MEDS ORDERED: diphenhydrAMINE 25mg capsule PO ONE (11:35)
[2022-09-12] MEDS ORDERED: haloperidol 5mg tablet PO ONE (11:35)
[2022-09-12] MEDS: acetaminophen 325mg tablet PO PRN ×2 (11:42→15:48)
[2022-09-12] MEDS: benzocaine (Anbesol) 12ml bottle MM PRN ×2 (12:13→21:17)
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
[2022-09-12] MEDS: NICOTINE POLACRILEX 2 MG LOZENGE BC PRN (18:16)
--- NOTE | 2022-09-12 19:52 | NUR ---
Nursing Progress Note: Problem: Per 5150 pt. is here for SA by OD on street drugs after command hallucinations telling him to do so. Pt. states that he took "Fentanyl, black china, meth, 8 ball" in suicide attempt. Pt. states he feels hopeless. Pt. is also delusional, stating, "they won't give me my billion dollars". Pt. states, "I tried killing myself because Im a free michelle. They dont love me but I love them. Yes I do." Interventions: Maintained a safe and supportive environment, ensured contract for safety, provided clear and simple instructions, observed for changes in usual behavior that may indicate increased suicide risk, provided medications as ordered, provided education on medications as needed, maintained Q 15min safety checks. Response: Patient is primarily isolating in his room following shift change. Patient is cooperative, he complains of increasing anxiety and feeling out of his body and other visual hallucinations. Patient requests medications for same. This bid writer called DANIEL Atkins and advised of this situation. Per DANIEL Goodwin aok to give patient 2100 Haldol and Seroquel. Patient was also given a sandwich and potato chips. He was also reassured that he is in a safe place. Patient denies S/I or H/I, he denies any audible hallucinations. Patient will be closely monitored. Plan: Pt. continues to require a safe and supportive environment while awaiting placement.
[2022-09-12 20:00] VITALS: BP 92/49
[2022-09-12 20:02] VITALS: BP 104/64
[2022-09-12] MEDS: psyllium seed 3.4 gm packet PO SCH (21:04)
[2022-09-12] MEDS: polyethylene glycol 3350 17gm powd pack PO SCH (21:04)
[2022-09-12] MEDS: prazosin 1mg capsule PO SCH (21:06)
[2022-09-13] MEDS: divalproex 250mg tablet, delayed-release PO SCH ×3 (07:55→20:06)
[2022-09-13] MEDS: benztropine 1mg tablet PO SCH ×2 (07:55→20:05)
[2022-09-13] MEDS: quetiapine 100mg tablet PO SCH ×4 (07:55→20:08)
[2022-09-13] MEDS: docusate sod 100mg capsule PO SCH ×2 (07:55→20:05)
[2022-09-13] MEDS: haloperidol 5mg tablet PO SCH ×3 (07:55→16:50)
[2022-09-13] MEDS: multivitamins, therapeutics tablet PO SCH (07:55)
[2022-09-13] MEDS: LORazepam 1 MG tablet PO SCH ×4 (07:55→20:06)
[2022-09-13] MEDS: buprenorphine/naloxone 2-0.5mg sublingual tablet SL SCH ×3 (07:56→15:05)
[2022-09-13 08:00] VITALS: BP 97/59
[2022-09-13] MEDS: nicotine 21mg patch - 24 hr TD SCH (08:42)
[2022-09-13] MEDS: NICOTINE POLACRILEX 2 MG LOZENGE BC PRN (13:31)
[2022-09-13] MEDS: clonazePAM 1mg tablet PO PRN (14:12)
--- NOTE | 2022-09-13 15:56 | NUR ---
Nursing Progress Note Problem: Per 5150 pt. is here for SA by OD on street drugs after command hallucinations telling him to do so. Pt. states that he took "Fentanyl, black china, meth, 8 ball" in suicide attempt. Pt. states he feels hopeless. Pt. is also delusional, stating, "they won't give me my billion dollars". Pt. states, "I tried killing myself because Im a free michelle. They dont love me but I love them. Yes I do." Interventions: 1:1 assessment, therapeutic conversation, active listening, ensured contract for safety, medication administration/education/monitoring, behavior monitoring and intervention as needed; reality orientation, distraction, redirection, limit setting,show of support, encouragement, positive reinforcement, and Q15 minute safety checks. Response: Pt was somewhat drowsy this morning but he did get up and eat breakfast in the dining room. He was cooperative with all scheduled medications except Suboxone which he refused stating, "no, I don't need that." Pt later reported that Suboxone makes you feel high but then when it wears off, you don't feel good. Notified Dr Mckenzie of pt's Suboxone refusal. Dr Mckenzie was concerned about withdrawal symptoms including irritability if pt refused his 2nd dose of Suboxone in the afternoon. Pt was given PRN Klonopin 2 mg by another RN while this RN was at lunch at 1412 for c/o increased anxiety and statements of "never getting out of here" with good effect. Pt was cooperative with his 1500 Suboxone dose after this nurse provided some education on the risk of withdrawal symptoms if he abruptly stopped taking it. Pt's Haldol was decreased from QID to TID today, his Prazosin was decreased from 4 mg to 2 mg. He has orders for labs at 1800 today: Ammonia, CBC/diff, CMP, and valproate. Plan: Pt is conserved and awaiting placement.
[2022-09-13] MEDS: acetaminophen 325mg tablet PO PRN (17:59)
[2022-09-13] MEDS: benzocaine (Anbesol) 12ml bottle MM PRN (18:50)
[2022-09-13 19:41] LABS: BASOPHILS % (AUTO) 0.7 % (0-1); EOSINOPHILS # (AUTO) 0.9 X10'3 (0-0.9); EOSINOPHILS % (AUTO) 14.9 % (0-6); HEMATOCRIT 36.6 % (42.0-52.0); HEMOGLOBIN 12.5 g/dl (14.0-17.9); LYMPHOCYTES # (AUTO) 1.4 X10'3 (1.1-4.8); LYMPHOCYTES % (AUTO) 22.6 % (21-51); MEAN CORPUSCULAR HGB CONC 34.2 g/dL (33.0-36.5); MEAN CORPUSCULAR VOLUME 90.6 FL (78-98); MEAN PLATELET VOLUME 7.4 FL (7.4-10.4); MONOCYTES # (AUTO) 0.4 X10'3 (0-0.9); MONOCYTES % (AUTO) 6.6 % (2-12); NEUTROPHILS # (AUTO) 3.4 X10'3 (1.8-7.7); NEUTROPHILS % (AUTO) 55.2 % (42-75); PLATELET COUNT 219 X10'3 (140-440); RED BLOOD COUNT 4.04 X10'6 (4.70-6.10); RED CELL DISTRIBUTION WIDTH 13.7 % (11.5-14.5); WHITE BLOOD COUNT 6.2 X10'3 (4.5-11.0)
[2022-09-13 19:48] LABS: ALANINE AMINOTRANSFERASE 20 U/L (12-78); ALBUMIN 3.6 G/DL (3.4-5.0); ALBUMIN/GLOBULIN RATIO 1.3 (1.1-1.5); ALKALINE PHOSPHATASE 75 IU/L (46-116); ANION GAP 9 (8-16); ASPARTATE AMINO TRANSFERASE 19 U/L (10-37); BILIRUBIN,TOTAL 0.5 MG/DL (0.1-1.0); BLOOD UREA NITROGEN 18 MG/DL (7-18); BUN/CREATININE RATIO 19.1 (5.4-32.0); CALCIUM 8.8 MG/DL (8.5-10.1); CHLORIDE 99 MMOL/L (99-107); CREATININE 0.94 MG/DL (0.60-1.10); GLUCOSE 138 MG/DL (70-104); POTASSIUM 3.9 MMOL/L (3.5-5.1); SODIUM 136 MMOL/L (135-145); TOTAL CARBON DIOXIDE 27.7 MMOL/L (24-32); TOTAL PROTEIN 6.4 G/DL (6.4-8.2); eGFR > 90 ML/MIN
[2022-09-13 19:53] LABS: VALPROATE 83 UG/ML (50-100)
[2022-09-13 20:00] VITALS: BP 121/74
[2022-09-13] MEDS: psyllium seed 3.4 gm packet PO SCH (20:06)
[2022-09-13] MEDS: prazosin 1mg capsule PO SCH (20:06)
[2022-09-13] MEDS: polyethylene glycol 3350 17gm powd pack PO SCH (20:07)
[2022-09-13] MEDS: haloperidol 5mg tablet PO PRN (23:51)
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
[2022-09-14] MEDS: LORazepam 1 MG tablet PO SCH ×4 (07:08→19:12)
[2022-09-14] MEDS: haloperidol 5mg tablet PO SCH ×4 (07:09→20:52)
[2022-09-14] MEDS: benztropine 1mg tablet PO SCH ×2 (07:09→19:11)
[2022-09-14] MEDS: docusate sod 100mg capsule PO SCH ×2 (07:09→19:12)
[2022-09-14] MEDS: divalproex 250mg tablet, delayed-release PO SCH ×3 (07:09→19:12)
[2022-09-14] MEDS: buprenorphine/naloxone 2-0.5mg sublingual tablet SL SCH ×2 (07:10→14:56)
[2022-09-14] MEDS: multivitamins, therapeutics tablet PO SCH (07:10)
[2022-09-14] MEDS: quetiapine 100mg tablet PO SCH ×4 (07:10→19:11)
[2022-09-14] MEDS: nicotine 21mg patch - 24 hr TD SCH (07:11)
[2022-09-14 08:00] VITALS: BP 131/99
[2022-09-14] MEDS: haloperidol 5mg tablet PO PRN ×2 (08:30→19:10)
[2022-09-14] MEDS: NICOTINE POLACRILEX 2 MG LOZENGE BC PRN (09:14)
[2022-09-14] MEDS: acetaminophen 325mg tablet PO PRN ×2 (09:17→19:39)
[2022-09-14] MEDS: clonazePAM 1mg tablet PO PRN ×2 (10:22→19:38)
--- NOTE | 2022-09-14 15:53 | NUR ---
Nursing Progress Note Problem: Per 5150 pt. is here for SA by OD on street drugs after command hallucinations telling him to do so. Pt. states that he took "Fentanyl, black china, meth, 8 ball" in suicide attempt. Pt. states he feels hopeless. Pt. is also delusional, stating, "they won't give me my billion dollars". Pt. states, "I tried killing myself because Im a free michelle. They dont love me but I love them. Yes I do." Interventions: 1:1 assessment, therapeutic conversation, active listening, ensured contract for safety, medication administration/education/monitoring, behavior monitoring and intervention as needed; reality orientation, distraction, redirection, limit setting, show of support, encouragement, positive reinforcement, and Q15 minute safety checks. Response: Pt was up before breakfast. Compliant with medication administration. Pt agitated at beginning of shift stating, Im just tired of f*cking being here. It doesnt matter if I behave or not. I would rather be in nursing home then here. Pt initially reluctant to taking medication; security called after pt began pushing on double doors and yelling; took AM medication as ordered. Headset offered and accepted; pacing unit. Refused breakfast. Behaviors de-escalated after breakfast. Pt expressed to this CUSHION MAT MAKER during 1:1 SI/HI, denies audio hallucinations, endorses visual hallucination stating Im seeing like the blue light sabers in Star Wars. Pt also mistaking black recinos on bedroom wall as flies. Endorses depressions/anxiety. Pt has poor insight/judgement to current situation. Disheveled appearance with fair hygiene. Pt ate lunch in community room. Multiple snacks given throughout shift. Pt napped in bedroom after lunch. Pt given PRN Tylenol, Ambesol, Haldol, and Klonopin. Plan: Pt is conserved and awaiting placement.
[2022-09-14] MEDS: prazosin 1mg capsule PO SCH (19:11)
[2022-09-14] MEDS: polyethylene glycol 3350 17gm powd pack PO SCH (19:11)
[2022-09-14] MEDS: psyllium seed 3.4 gm packet PO SCH (19:11)
[2022-09-14 20:04] VITALS: BP 125/75
--- NOTE | 2022-09-15 04:18 | NUR ---
Nursing Progress Note Problem: Per 5150 pt. is here for SA by OD on street drugs after command hallucinations telling him to do so. Pt. states that he took "Fentanyl, black china, meth, 8 ball" in suicide attempt. Pt. states he feels hopeless. Pt. is also delusional, stating, "they won't give me my billion dollars". Pt. states, "I tried killing myself because Im a free michelle. They dont love me but I love them. Yes I do." Interventions: 1:1 assessment, therapeutic conversation, active listening, ensured contract for safety, medication administration/education/monitoring, behavior monitoring and intervention as needed; reality orientation, distraction, redirection, limit setting,show of support, encouragement, positive reinforcement, and Q15 minute safety checks. Response: Patient started the shift agitated and hitting the wall or door; he was easily directed to his room by singer songwriter. Patient expressed feelings of hopelessness and expressed wanting to go [facility] [place] [facility] because he no longer wants to be stuck on the unit. Patient took HS medications early this shift without any hesitation. PRNs Haldol, Clonazepam, Tylenol and Anbesol provided. Patient was thankful and cooperative with all help calming him. A little later in the shift, patient expressed he's been struggling with A/VH of a shadow and explained feelings of intrusiveness from the shadow. Patient also believed that he was hearing negative whispers regarding singer songwriter that contributed to his upset. Patient was provided HS snacks and listened to headsets prior to bed; observed sleeping and does not appear to be having difficulty. Plan: Pt is conserved and awaiting placement.
[2022-09-15] MEDS: nicotine 21mg patch - 24 hr TD SCH (07:50)
[2022-09-15] MEDS: divalproex 250mg tablet, delayed-release PO SCH ×3 (07:50→20:11)
[2022-09-15] MEDS: haloperidol 5mg tablet PO SCH ×4 (07:51→20:07)
[2022-09-15] MEDS: docusate sod 100mg capsule PO SCH ×2 (07:51→20:08)
[2022-09-15] MEDS: LORazepam 1 MG tablet PO SCH ×5 (07:51→20:07)
[2022-09-15] MEDS: buprenorphine/naloxone 2-0.5mg sublingual tablet SL SCH ×2 (07:51→16:23)
[2022-09-15] MEDS: multivitamins, therapeutics tablet PO SCH (07:51)
[2022-09-15] MEDS: benztropine 1mg tablet PO SCH ×2 (07:51→20:09)
[2022-09-15] MEDS: quetiapine 100mg tablet PO SCH ×4 (07:51→20:11)
[2022-09-15 08:00] VITALS: BP 100/64
[2022-09-15] MEDS: acetaminophen 325mg tablet PO PRN ×2 (13:43→20:12)
[2022-09-15] MEDS: NICOTINE POLACRILEX 2 MG LOZENGE BC PRN (14:06)
[2022-09-15] MEDS: clonazePAM 1mg tablet PO PRN (14:31)
--- NOTE | 2022-09-15 16:08 | NUR ---
Nursing Progress Note Problem: Per 5150 pt. is here for SA by OD on street drugs after command hallucinations telling him to do so. Pt. states that he took "Fentanyl, black china, meth, 8 ball" in suicide attempt. Pt. states he feels hopeless. Pt. is also delusional, stating, "They won't give me my billion dollars". Pt. states, "I tried killing myself because Im a free michelle. They dont love me but I love them. Yes I do." Interventions: 1:1 assessment, therapeutic conversation, active listening, ensured contract for safety, medication administration/education/monitoring, behavior monitoring and intervention as needed; reality orientation, distraction, redirection, limit setting, show of support, encouragement, positive reinforcement, and Q15 minute safety checks. Response: Patient received resting quietly in bed. Awake prior to breakfast drinking coffee and pacing the unit. Cooperative with 1:1 assessment and medications. Continues to endorse auditory hallucinations. Appears fatigued in the morning and endorses depression from having to stay here. Takes a long nap after breakfast. PRN Klonopin given for anxiety with good results. In the afternoon the patient is noted smiling and socializing with peers and pacing/ listening to headphones. Plan: Pt is conserved and awaiting placement.
[2022-09-15 19:51] VITALS: BP 121/87
[2022-09-15] MEDS: psyllium seed 3.4 gm packet PO SCH (20:07)
[2022-09-15] MEDS: polyethylene glycol 3350 17gm powd pack PO SCH (20:07)
[2022-09-15] MEDS: prazosin 1mg capsule PO SCH (20:08)
--- NOTE | 2022-09-16 05:40 | NUR ---
Nursing Progress Note Problem: Per 5150 pt. is here for SA by OD on street drugs after command hallucinations telling him to do so. Pt. states that he took "Fentanyl, black china, meth, 8 ball" in suicide attempt. Pt. states he feels hopeless. Pt. is also delusional, stating, "they won't give me my billion dollars". Pt. states, "I tried killing myself because Im a free michelle. They dont love me but I love them. Yes I do." Interventions: 1:1 assessment, therapeutic conversation, active listening, ensured contract for safety, medication administration/education/monitoring, behavior monitoring and intervention as needed; reality orientation, distraction, redirection, limit setting,show of support, encouragement, positive reinforcement, and Q15 minute safety checks. Response: Patient is pleasant and cooperative with care; compliant with medication. PRNs Anbesol and Tylenol provided. Nicotine patch removed. No negative behaviors presented this shift and no SI, HI, A/VH reported this shift. Patient social with staff and participated in HS snack prior to bed; observed sleeping and does not appear to be having difficulty. Plan: Pt is conserved and awaiting placement.
[2022-09-16 07:53] VITALS: BP 118/69
[2022-09-16] MEDS: nicotine 21mg patch - 24 hr TD SCH (08:19)
[2022-09-16] MEDS: LORazepam 1 MG tablet PO SCH ×4 (08:20→18:50)
[2022-09-16] MEDS: multivitamins, therapeutics tablet PO SCH (08:21)
[2022-09-16] MEDS: divalproex 250mg tablet, delayed-release PO SCH ×3 (08:21→18:50)
[2022-09-16] MEDS: haloperidol 5mg tablet PO SCH ×4 (08:21→18:50)
[2022-09-16] MEDS: benztropine 1mg tablet PO SCH ×2 (08:21→18:50)
[2022-09-16] MEDS: quetiapine 100mg tablet PO SCH ×4 (08:21→18:54)
[2022-09-16] MEDS: docusate sod 100mg capsule PO SCH ×2 (08:21→18:49)
[2022-09-16] MEDS: buprenorphine/naloxone 2-0.5mg sublingual tablet SL SCH ×2 (08:22→15:50)
[2022-09-16] MEDS: acetaminophen 325mg tablet PO PRN (12:36)
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
[2022-09-16] MEDS: benzocaine (Anbesol) 12ml bottle MM PRN (16:11)
[2022-09-16] MEDS: clonazePAM 1mg tablet PO PRN (17:28)
--- NOTE | 2022-09-16 18:40 | NUR ---
Telephone order obtained to give HS meds early due to seclusion and continued agitation. Also obtained order for 1x 500 mg of Naproxen for toothache.
[2022-09-16] MEDS ORDERED: naproxen 500mg tablet PO ONE (18:45)
[2022-09-16] MEDS: psyllium seed 3.4 gm packet PO SCH (18:48)
[2022-09-16] MEDS: polyethylene glycol 3350 17gm powd pack PO SCH (18:49)
[2022-09-16] MEDS: prazosin 1mg capsule PO SCH (18:50)
[2022-09-16 19:53] VITALS: BP 131/84
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
[2022-09-17] MEDS: benztropine 1mg tablet PO SCH ×2 (08:18→20:12)
[2022-09-17] MEDS: docusate sod 100mg capsule PO SCH ×2 (08:18→20:13)
[2022-09-17] MEDS: quetiapine 100mg tablet PO SCH ×4 (08:18→20:12)
[2022-09-17] MEDS: multivitamins, therapeutics tablet PO SCH (08:18)
[2022-09-17] MEDS: divalproex 250mg tablet, delayed-release PO SCH ×3 (08:19→20:12)
[2022-09-17] MEDS: haloperidol 5mg tablet PO SCH ×4 (08:19→20:10)
[2022-09-17] MEDS: LORazepam 1 MG tablet PO SCH ×4 (08:19→20:11)
[2022-09-17] MEDS: buprenorphine/naloxone 2-0.5mg sublingual tablet SL SCH ×2 (08:19→14:56)
[2022-09-17] MEDS: nicotine 21mg patch - 24 hr TD SCH (08:32)
[2022-09-17] MEDS: haloperidol 5mg tablet PO PRN (13:37)
[2022-09-17] MEDS: clonazePAM 1mg tablet PO PRN (13:37)
[2022-09-17] MEDS: NICOTINE POLACRILEX 2 MG LOZENGE BC PRN (14:14)
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
[2022-09-17 19:00] VITALS: BP 121/77
[2022-09-17] MEDS: polyethylene glycol 3350 17gm powd pack PO SCH (20:10)
[2022-09-17] MEDS: psyllium seed 3.4 gm packet PO SCH (20:10)
[2022-09-17] MEDS: prazosin 1mg capsule PO SCH (20:10)
[2022-09-17] MEDS: benzocaine (Anbesol) 12ml bottle MM PRN (20:54)
--- NOTE | 2022-09-18 03:58 | NUR ---
Nursing Progress Note Problem: Per 5150 pt. is here for SA by OD on street drugs after command hallucinations telling him to do so. Pt. states that he took "Fentanyl, black china, meth, 8 ball" in suicide attempt. Interventions: Maintained a safe and supportive environment, ensured contract for safety, provided clear and simple instructions, attempted to orient to reality, monitored behavior and provided intervention as needed, provided active listening and positive encouragement, encouraged independent performance of ADLs, and maintained Q 15min safety checks. Response: Patient walking hallways and socializing at change of shift. Patient complaining of facial pain and tooth pain, given Ambesol with good relief of symptoms. Patient is medication compliant. Patient went down to CT for facial CT, which was grossly negative. Patient took a shower and then went to bed at 2100, and is still sleeping at this time. Plan : Per Dr. Yeboah, pt. continues to require a safe and supportive environment. Pt has been conserved and awaiting placement by [facility].
[2022-09-18] MEDS: docusate sod 100mg capsule PO SCH ×2 (07:22→20:44)
[2022-09-18] MEDS: benztropine 1mg tablet PO SCH ×2 (07:22→20:46)
[2022-09-18] MEDS: divalproex 250mg tablet, delayed-release PO SCH ×3 (07:22→20:45)
[2022-09-18] MEDS: multivitamins, therapeutics tablet PO SCH (07:23)
[2022-09-18] MEDS: LORazepam 1 MG tablet PO SCH ×4 (07:23→20:44)
[2022-09-18] MEDS: buprenorphine/naloxone 2-0.5mg sublingual tablet SL SCH ×2 (07:23→15:35)
[2022-09-18] MEDS: haloperidol 5mg tablet PO SCH ×4 (07:23→20:46)
[2022-09-18] MEDS: quetiapine 100mg tablet PO SCH ×4 (07:23→20:49)
[2022-09-18] MEDS: nicotine 21mg patch - 24 hr TD SCH (07:24)
--- NOTE | 2022-09-18 07:57 | NUR ---
F/u 09/18: Pt PO ~73% avg vegetarian diet up to 100% at times receiving double eggs WB and double entree BIDLD in addition to sometimes multiple snacks daily per EMR; likely meeting estimated needs. LBM 09/16. No nutrition interventions at this time. Will continue to follow. Recommendations: 1) Continue Vegetarian diet per pt request; double eggs WB, double entree BIDLD 2) MVI supplementation per MD 3) Bowel care PRN 4) Weekly scaled weights Addendum: 09/18/22 at [address] Amended: Links added.
[2022-09-18 08:00] VITALS: BP 123/62
--- NOTE | 2022-09-18 15:50 | NUR ---
Nursing Progress Note: [place] Problem: Patient is 5150 status. Per admit note "You jumped off the [place] with the intention of killing yourself". During interview pt. endorses SI without a plan, as well as auditory hallucinations, states he hears random words like, "Chance". Pt. reports he had been living at [facility] for 4 months before he relapsed 2 days ago, drinking whiskey until he blacked out and snorting meth. Pt. reports he is now homeless. Interventions: Medication administration, 1:1 MH assessment, maintained a safe and supportive environment, provided clear and simple instructions, provided encouragement regarding performance of ADLs, monitored behaviors and maintained clear boundaries, maintained Q15 minute safety checks. Response: Pt. received asleep, awoke for his medications which he took without hesitation. He denies SI, HI, AH, VH, and describes being goal oriented to find placement. He appears fatigued and mumbles at times.Pt. took a nap and awoke later for snack. He denies any pain r/t swelling to upper bridge of his nose and light purple ecchymosis to bilateral orbital areas, but did request lotion for his face. He walked around the unit in a slow pace and socialized at times with male peers. Pt. has a flat affect and presents as down casted. He ate all meals in the main dining room, but found to take in less than 50% of meals. He has fair hygiene, short hair, and wears street clothes. Plan: Pt requires stabilization with medication adjustment and management in a safe and therapeutic environment. Addendum: 09/18/22 at 1633 by Iveth Jamison RN Weekly weight 117.2kg indicating 4.4kg weight loss. Addendum: 09/19/22 at 1346 by Iveth Jamison RN Disregard previous Problem, please correction Problem: Per 5050 pt. is here for SA by OD on street drugs after command hallucinations telling him to do so. Pt. states that he took "Fentanyl, black china, meth, 8 ball" in suicide attempt.
[2022-09-18 20:00] VITALS: BP 100/57
[2022-09-18] MEDS: polyethylene glycol 3350 17gm powd pack PO SCH (20:39)
[2022-09-18] MEDS: psyllium seed 3.4 gm packet PO SCH (20:39)
[2022-09-18] MEDS: prazosin 1mg capsule PO SCH (20:43)
[2022-09-18] MEDS: clonazePAM 1mg tablet PO PRN (20:51)
[2022-09-18] MEDS: acetaminophen 325mg tablet PO PRN (21:06)
[2022-09-18] MEDS: benzocaine (Anbesol) 12ml bottle MM PRN (21:07)
--- NOTE | 2022-09-18 22:52 | NUR ---
Nursing Progress Note: [place] Problem: Patient is 5150 status. Per admit note "You jumped off the clear [place] bridge with the intention of killing yourself". During interview pt. endorses SI without a plan, as well as auditory hallucinations, states he hears random words like, "Chance". Pt. reports he had been living at [facility] for 4 months before he relapsed 2 days ago, drinking whiskey until he blacked out and snorting meth. Pt. reports he is now homeless. Interventions: Medication administration, 1:1 MH assessment, maintained a safe and supportive environment, provided clear and simple instructions, provided encouragement regarding performance of ADLs, monitored behaviors and maintained clear boundaries, maintained Q15 minute safety checks. Response: Received patient at shift change. He is isolating in his room. 1:1 Interview at bedside. This patient is awake, he looks frightened. Patient tells this caption writer that he is afraid that "someone is here and they are going to stab me in the neck and kill me." The patient denies S/I, H/I or any hallucinations. This caption writer explains to this patient that nobody here wants to hurt him, in addition the patient was advised that he is in a safe place and this caption writer will check in on him often to make sure he is safe. The patient looks reassured. On exam the patient is PERRL, both orbits exhibit ecchymotic tissue. There is generalized swelling tohis face. Patient does complain of facial pain. He presents as fairly well oriented. He admits to feeling depressed. Tylelnol was given for facial pain. Klonopin was given for his anxiety. Following medication administration the patient exited his room and socialized lightly. Patient was offered an ice pack for his facial edema but he declined. Just prior to writing this note this caption writer observed the patient sleeping quietly. Plan: Pt requires stabilization with medication adjustment and management in a safe and therapeutic environment. Addendum: 01/12/23 at 2331 by Eagle Schulte RN The patients Minipress was held tonight as his systolic B/P was 100.
[2022-09-19] MEDS: LORazepam 1 MG tablet PO SCH ×4 (07:59→20:15)
[2022-09-19 08:00] VITALS: BP 101/47
[2022-09-19] MEDS: docusate sod 100mg capsule PO SCH ×2 (08:00→20:15)
[2022-09-19] MEDS: divalproex 250mg tablet, delayed-release PO SCH ×3 (08:00→20:13)
[2022-09-19] MEDS: multivitamins, therapeutics tablet PO SCH (08:00)
[2022-09-19] MEDS: quetiapine 100mg tablet PO SCH ×4 (08:00→20:11)
[2022-09-19] MEDS: benztropine 1mg tablet PO SCH ×2 (08:01→20:14)
[2022-09-19] MEDS: haloperidol 5mg tablet PO SCH ×4 (08:01→20:15)
[2022-09-19] MEDS: buprenorphine/naloxone 2-0.5mg sublingual tablet SL SCH ×2 (08:01→15:46)
[2022-09-19] MEDS: nicotine 21mg patch - 24 hr TD SCH (08:02)
--- NOTE | 2022-09-19 10:47 | NUR ---
Sent updated notes (09/12-09/18/22) to Public Guardian (Karin Bailey email: ) for placement purposes. JOEL Casanova
--- NOTE | 2022-09-19 16:22 | NUR ---
Nursing Progress Note: [place] Problem: Per 5150 pt. is here for SA by OD on street drugs after command hallucinations telling him to do so. Pt. states that he took "Fentanyl, black china, meth, 8 ball" in suicide attempt. Interventions: Medication administration, 1:1 MH assessment, maintained a safe and supportive environment, provided clear and simple instructions, provided encouragement regarding performance of ADLs, monitored behaviors and maintained clear boundaries, maintained Q15 minute safety checks. Response: Pt. received asleep, he awoke for his medications, and proceeded to breakfast. He denies SI, HI, AH, VH and presents with a flat affect and down casted. Pt. found to have an increase in area of swelling upper bridge of nose and ecchymosis continues to bilateral orbital area. He denies needing anything for pain. Pt. slept mostly in his room today, often waking up before a meal and returning to bed afterwards. Pt. continues to have poor meal intake d/t my tooth pain he was given an Ensure with each meal as his weight loss was over 4kg from last week. No behaviors or outbursts this shift. His hygiene is deficient, slightly disheveled, and is wearing the same clothes from yesterday. Plan: Pt requires stabilization with medication adjustment and management in a safe and therapeutic environment.
[2022-09-19] MEDS: benzocaine (Anbesol) 12ml bottle MM PRN ×2 (17:19→20:25)
[2022-09-19 19:50] VITALS: BP 126/59
[2022-09-19] MEDS: prazosin 1mg capsule PO SCH (20:15)
[2022-09-19] MEDS: clonazePAM 1mg tablet PO PRN (20:16)
[2022-09-19] MEDS: acetaminophen 325mg tablet PO PRN (20:17)
--- NOTE | 2022-09-19 20:35 | NUR ---
Nursing Progress Note: [place] Problem: Patient is 5150 status. Per admit note "You jumped off the [place] with the intention of killing yourself". During interview pt. endorses SI without a plan, as well as auditory hallucinations, states he hears random words like, "Chance". Pt. reports he had been living at [facility] for 4 months before he relapsed 2 days ago, drinking whiskey until he blacked out and snorting meth. Pt. reports he is now homeless. Interventions: Medication administration, 1:1 MH assessment, maintained a safe and supportive environment, provided clear and simple instructions, provided encouragement regarding performance of ADLs, monitored behaviors and maintained clear boundaries, maintained Q15 minute safety checks. Response: Patient received at shift change. Patient isolates in his room, he is awake and laying in his bed. 1:1 Interview at bedside. The patient is alert and less paranoid than the previous assistant casino shift manager. He continues to complain of dental and facial pain. Anxiety is present. Patient denies S/I, H/I or any hallucinations. Patient is cooperative with staff. Ambusel is used for dental pain along with PRN Tylenol 650 mg. Klonopin 2 mg was given for anxiety. Patient states he is still depressed and fearful of being hurt again. The patient exhibits understanding about his surroundings. He speaks softly. Patient is reminded that this feature writer and others will visit quietly throughout the night to check on him. Patient states no BM today. Plan: Pt requires stabilization with medication adjustment and management in a safe and therapeutic environment.
[2022-09-19] MEDS: psyllium seed 3.4 gm packet PO SCH (21:00)
[2022-09-19] MEDS: polyethylene glycol 3350 17gm powd pack PO SCH (21:00)
[2022-09-20 08:00] VITALS: BP 114/65
[2022-09-20] MEDS: nicotine 21mg patch - 24 hr TD SCH (08:00)
[2022-09-20] MEDS: LORazepam 1 MG tablet PO SCH ×4 (08:35→21:01)
[2022-09-20] MEDS: divalproex 250mg tablet, delayed-release PO SCH ×3 (08:36→21:00)
[2022-09-20] MEDS: multivitamins, therapeutics tablet PO SCH (08:36)
[2022-09-20] MEDS: docusate sod 100mg capsule PO SCH ×2 (08:36→20:59)
[2022-09-20] MEDS: haloperidol 5mg tablet PO SCH ×4 (08:36→21:01)
[2022-09-20] MEDS: benztropine 1mg tablet PO SCH ×2 (08:36→21:00)
[2022-09-20] MEDS: quetiapine 100mg tablet PO SCH ×4 (08:36→21:04)
[2022-09-20] MEDS: buprenorphine/naloxone 2-0.5mg sublingual tablet SL SCH ×2 (08:36→15:35)
[2022-09-20] MEDS: benzocaine (Anbesol) 12ml bottle MM PRN (16:08)
--- NOTE | 2022-09-20 16:52 | NUR ---
Nursing Progress Note Problem : Per 5150 pt. is here for SA by OD on street drugs after command hallucinations telling him to do so. Pt. states that he took "Fentanyl, black china, meth, 8 ball" in suicide attempt. Interventions : Maintained a safe and supportive environment, ensured contract for safety, provided clear and simple instructions, attempted to orient to reality, monitored behavior and provided intervention as needed, provided active listening and positive encouragement, encouraged independent performance of ADLs, and maintained Q 15min safety checks. Response : Received Pt in bed sleeping w/o distress at change of shift. Pt woke and was cooperative with vitals and returned to sleep. He woke for breakfast and took AM meds w/o issue. Pt cooperative with assessments and pleasant; he denies SI/HI and A/VHs at this time. Pt lethargic today and napped in both AM and PM. He watched football for a bit in afternoon before getting PRN Anbesol for tooth pain and then returning to bed. Pt did not c/o facial pain or have angry outbursts this shift. Plan : Per Dr. Yeboah, pt. continues to require a safe and supportive environment. Pt has been conserved and awaiting placement by [facility].
--- NOTE | 2022-09-20 18:39 | NUR ---
Patient in room MH 325. I have received report from PRIYA Pinto and had the opportunity to ask questions and assume patient care.
[2022-09-20 20:00] VITALS: BP 101/62
[2022-09-20 20:58] VITALS: BP 100/61
[2022-09-20] MEDS: prazosin 1mg capsule PO SCH (21:00)
[2022-09-20] MEDS: polyethylene glycol 3350 17gm powd pack PO SCH (21:01)
[2022-09-20] MEDS: psyllium seed 3.4 gm packet PO SCH (21:01)
--- NOTE | 2022-09-21 06:01 | NUR ---
Christophe slept for 8 hours,he walked up around 1 p.m asking for [place],his tooth was hurting.He wend back to sleep after.He had a good night ,stayed in his room isolated.
[2022-09-21 08:00] VITALS: BP 103/56
[2022-09-21] MEDS: benztropine 1mg tablet PO SCH ×2 (08:18→20:01)
[2022-09-21] MEDS: docusate sod 100mg capsule PO SCH ×2 (08:18→20:00)
[2022-09-21] MEDS: LORazepam 1 MG tablet PO SCH ×4 (08:18→20:00)
[2022-09-21] MEDS: buprenorphine/naloxone 2-0.5mg sublingual tablet SL SCH ×2 (08:18→15:28)
[2022-09-21] MEDS: quetiapine 100mg tablet PO SCH ×4 (08:19→20:00)
[2022-09-21] MEDS: haloperidol 5mg tablet PO SCH ×4 (08:19→20:01)
[2022-09-21] MEDS: multivitamins, therapeutics tablet PO SCH (08:19)
[2022-09-21] MEDS: nicotine 21mg patch - 24 hr TD SCH (08:20)
[2022-09-21] MEDS: divalproex 250mg tablet, delayed-release PO SCH ×3 (08:22→20:01)
[2022-09-21] MEDS: benzocaine (Anbesol) 12ml bottle MM PRN ×2 (08:28→17:48)
--- NOTE | 2022-09-21 17:04 | NUR ---
Nursing Progress Note Problem: Per 5150 pt. is here for SA by OD on street drugs after command hallucinations telling him to do so. Pt. states that he took "Fentanyl, black china, meth, 8 ball" in suicide attempt. Interventions: Maintained a safe and supportive environment, ensured contract for safety, provided clear and simple instructions, attempted to orient to reality, monitored behavior and provided intervention as needed, provided active listening and positive encouragement, encouraged independent performance of ADLs, and maintained Q 15min safety checks. Response: Received patient sleeping in bed at change of shift. Patient awakened after 08:00 and was having tooth pain, Ambisol given for tooth pain. Patient ate his breakfast and lunch in his room. Patient states that he is in pain and stayed in bed all day due to pain. Tylenol, Naprosyn and Suboxone given for pain throughout the shift. Patient appears depressed. Plan : Per Dr. Yeboah, pt. continues to require a safe and supportive environment. Pt has been conserved and awaiting placement by [facility]. Addendum: 09/21/22 at 1823 by Selena Strauss RN Patient requests something for anxiety, states that he is hearing voices right now. Klonopin 2 mg, Haldol 10 mg, and Tylenol 650 given for pain, voices and anxiety.
[2022-09-21] MEDS: acetaminophen 325mg tablet PO PRN (18:17)
[2022-09-21] MEDS: clonazePAM 1mg tablet PO PRN (18:17)
[2022-09-21] MEDS: haloperidol 5mg tablet PO PRN (18:18)
[2022-09-21 19:45] VITALS: BP 105/66
[2022-09-21] MEDS: polyethylene glycol 3350 17gm powd pack PO SCH (20:00)
[2022-09-21] MEDS: prazosin 1mg capsule PO SCH (20:00)
[2022-09-21] MEDS: psyllium seed 3.4 gm packet PO SCH (20:00)
[2022-09-21 20:10] LABS: ALANINE AMINOTRANSFERASE 17 U/L (12-78); ALBUMIN/GLOBULIN RATIO 0.9 (1.1-1.5); ALKALINE PHOSPHATASE 89 IU/L (46-116); ANION GAP 5 (8-16); ASPARTATE AMINO TRANSFERASE 18 U/L (10-37); BILIRUBIN,TOTAL 0.3 MG/DL (0.1-1.0); BLOOD UREA NITROGEN 22 MG/DL (7-18); BUN/CREATININE RATIO 23.4 (5.4-32.0); CALCIUM 8.2 MG/DL (8.5-10.1); CHLORIDE 104 MMOL/L (99-107); CREATININE 0.94 MG/DL (0.60-1.10); GLUCOSE 119 MG/DL (70-104); POTASSIUM 4.4 MMOL/L (3.5-5.1); SODIUM 140 MMOL/L (135-145); TOTAL PROTEIN 6.2 G/DL (6.4-8.2); eGFR > 90 ML/MIN
[2022-09-21 20:42] LABS: BASOPHILS % (AUTO) 0.8 % (0-1); EOSINOPHILS # (AUTO) 0.8 X10'3 (0-0.9); EOSINOPHILS % (AUTO) 18.8 % (0-6); HEMATOCRIT 36.1 % (42.0-52.0); HEMOGLOBIN 12.5 g/dl (14.0-17.9); LYMPHOCYTES # (AUTO) 1.2 X10'3 (1.1-4.8); LYMPHOCYTES % (AUTO) 26.8 % (21-51); MEAN CORPUSCULAR HEMOGLOBIN 31.2 PG (27.0-31.0); MEAN CORPUSCULAR HGB CONC 34.5 g/dL (33.0-36.5); MEAN CORPUSCULAR VOLUME 90.2 FL (78-98); MEAN PLATELET VOLUME 7.8 FL (7.4-10.4); MONOCYTES # (AUTO) 0.3 X10'3 (0-0.9); MONOCYTES % (AUTO) 6.9 % (2-12); NEUTROPHILS % (AUTO) 46.7 % (42-75); PLATELET COUNT 199 X10'3 (140-440); RED CELL DISTRIBUTION WIDTH 13.1 % (11.5-14.5); WHITE BLOOD COUNT 4.3 X10'3 (4.5-11.0)
[2022-09-21] MEDS: traZODone 50mg tablet PO PRN (21:18)
[2022-09-22] MEDS: NICOTINE POLACRILEX 2 MG LOZENGE BC PRN (01:57)
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
[2022-09-22 07:54] VITALS: BP 130/60
[2022-09-22] MEDS: haloperidol 5mg tablet PO SCH ×4 (07:56→20:05)
[2022-09-22] MEDS: benztropine 1mg tablet PO SCH ×2 (07:56→20:05)
[2022-09-22] MEDS: buprenorphine/naloxone 2-0.5mg sublingual tablet SL SCH ×2 (07:56→15:08)
[2022-09-22] MEDS: multivitamins, therapeutics tablet PO SCH (07:57)
[2022-09-22] MEDS: LORazepam 1 MG tablet PO SCH ×4 (07:57→20:06)
[2022-09-22] MEDS: docusate sod 100mg capsule PO SCH ×2 (07:57→20:06)
[2022-09-22] MEDS: quetiapine 100mg tablet PO SCH ×4 (07:57→20:05)
[2022-09-22] MEDS: divalproex 250mg tablet, delayed-release PO SCH ×2 (07:57→12:42)
[2022-09-22] MEDS: nicotine 21mg patch - 24 hr TD SCH (07:58)
[2022-09-22] MEDS: lactulose 20gm/30ml cup PO SCH ×2 (13:36→20:04)
[2022-09-22] MEDS: benzocaine (Anbesol) 12ml bottle MM PRN ×2 (15:11→18:25)
--- NOTE | 2022-09-22 16:18 | NUR ---
Nursing Progress Note: Problem: Per 5150 pt. is here for SA by OD on street drugs after command hallucinations telling him to do so. Pt. states that he took "Fentanyl, black china, meth, 8 ball" in suicide attempt. Interventions: Provide medication administration & medication management; Maintained a safe & supportive environment; Clear & simple instructions; Direction & encouragement regarding performance of ADLs; monitored behaviors & maintained clear boundaries; Patient physical assessment & 1:1 patient interview; Therapeutic conversation & active listening; Patient education & monitoring. Response: Received patient while he was sleeping in bed. Entered patients room to administer 0800 medications. Patient was easily aroused from sleep and took his oral medications without difficulty. Patient declined breakfast and fell back to sleep. Patient woke up at 1200 and sat alongside his bed before ambulating to the [facility] for lunch. Patient has ecchymosis around his bilateral eyes with forehead swelling noted. Patient denies pain in this area. Patient ate lunch and took his 1300 medications before going back to bed to rest. ROVERTO Arnett came to speak with me at 1330 about this patient and informed me that his labs that were drawn for an Ammonia Level, which was drawn last night had not been reported to her last night to her as a Critical Result, of 71 because Lab did not report this as a critical result to the RN/RUBBER OFF, so Hope was not aware of the actual Ammonia Level and to discontinue Depakote medication last night. Received order from Hope to dc Depakote and start Lactulose po q6 h, and first dose was administered at 1336 today. Per Hope, Patient is to continue Lactulose until he experiences diarrhea, then his MD should be informed so that he can write an order if he wants to decrease the Lactulose. Ammonia results drawn today were 68. Plan: Crisis interruption, stabilization with medication adjustment, management and monitoring in a safe and therapeutic environment until stable.
[2022-09-22 19:41] VITALS: BP 104/55
[2022-09-22] MEDS: polyethylene glycol 3350 17gm powd pack PO SCH (20:04)
[2022-09-22] MEDS: psyllium seed 3.4 gm packet PO SCH (20:04)
[2022-09-22] MEDS: prazosin 1mg capsule PO SCH (20:06)
--- NOTE | 2022-09-22 21:40 | NUR ---
shin Progress Note: Problem: Per 5150 pt. is here for SA by OD on street drugs after command hallucinations telling him to do so. Pt. states that he took "Fentanyl, black china, meth, 8 ball" in suicide attempt. Interventions: Provide medication administration & medication management; Maintained a safe & supportive environment; Clear & simple instructions; Direction & encouragement regarding performance of ADLs; monitored behaviors & maintained clear boundaries; Patient physical assessment & 1:1 patient interview; Therapeutic conversation & active listening; Patient education & monitoring. Response: Pt was in his room napping at change of shift. Pt states he was having dreams about "The Lord, God is good, I'm feeling really good right now." Pt is pleasant and reports feeling tired and wants to continue sleeping. Pt reports he is having some constipation. Pt given scheduled, colace, miralax, metamucil, and lactulose this evening and advised to report if he has a BM this evening. Pt declines to have a snack with peers and remains in his room. Pt reports leg pain "I fell down a hill once when I was in High School, so I think that's why my leg is hurting now." Pt came out of his room shortly after HS med pass reporting he is having trouble sleeping and returned to bed. Plan: Crisis interruption, stabilization with medication adjustment, management and monitoring in a safe and therapeutic environment until stable.
[2022-09-22] MEDS: traZODone 50mg tablet PO PRN ×2 (21:53→23:05)
[2022-09-22] MEDS: clonazePAM 1mg tablet PO PRN (23:04)
[2022-09-23] MEDS: lactulose 20gm/30ml cup PO SCH ×3 (01:17→14:55)
[2022-09-23 07:46] VITALS: BP 92/67
[2022-09-23] MEDS: buprenorphine/naloxone 2-0.5mg sublingual tablet SL SCH ×2 (08:00→14:55)
[2022-09-23] MEDS: multivitamins, therapeutics tablet PO SCH (08:28)
[2022-09-23] MEDS: benztropine 1mg tablet PO SCH ×2 (08:29→20:03)
[2022-09-23] MEDS: quetiapine 100mg tablet PO SCH ×4 (08:29→20:05)
[2022-09-23] MEDS: LORazepam 1 MG tablet PO SCH ×4 (08:29→20:03)
[2022-09-23] MEDS: docusate sod 100mg capsule PO SCH (08:29)
[2022-09-23] MEDS: haloperidol 5mg tablet PO SCH ×4 (08:29→20:04)
[2022-09-23] MEDS: nicotine 21mg patch - 24 hr TD SCH (08:35)
[2022-09-23 11:11] LABS: RED BLOOD COUNT 3.91 X10'6 (4.70-6.10); RETICULOCYTE % (AUTO) 1.2 % (0.5-1.5)
[2022-09-23 11:33] LABS: % IRON SATURATION 47 % (11-46); IRON 109 UG/DL (53-167); TOTAL IRON BINDING CAPACITY 234 UG/DL (259-388)
[2022-09-23 12:28] LABS: FERRITIN 176 NG/ML (26-388)
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
[2022-09-23] MEDS: clonazePAM 1mg tablet PO PRN (18:54)
[2022-09-23 19:28] VITALS: BP 114/73
[2022-09-23] MEDS: psyllium seed 3.4 gm packet PO SCH (20:04)
[2022-09-23] MEDS: acetaminophen 325mg tablet PO PRN (20:05)
[2022-09-23] MEDS: traZODone 50mg tablet PO PRN (21:13)
[2022-09-23] MEDS: haloperidol 5mg tablet PO PRN (21:40)
[2022-09-24] MEDS: benzocaine (Anbesol) 12ml bottle MM PRN (01:26)
--- NOTE | 2022-09-24 04:54 | NUR ---
Nursing Progress Note: Problem: Per 5150 pt. is here for SA by OD on street drugs after command hallucinations telling him to do so. Pt. states that he took "Fentanyl, black china, meth, 8 ball" in suicide attempt. Interventions: Provide medication administration & medication management; maintained a safe & supportive environment; clear & simple instructions; direction & encouragement regarding performance of ADLs; monitored behaviors & maintained clear boundaries; patient physical assessment & 1:1 patient interview; Therapeutic conversation & active listening; patient education & monitoring. Response: Pt was c/o not feeling good at change of shift and was pacing in his room and appeared to be anxious. Pt was provided with PRN klonopin. Pt states he wants to go home and is tired of being here. Pt had med changes this evening and took HS meds, Pt c/o tooth pain and requested prn tylenol. Pt had snacks and returned to bed. Pt had difficulty sleeping was provided with PRN trazodone, also received repeat dose and continued to have interrupted sleep during the night. At one point patient reported he was "freaking out" and began punching murry in his room. Pt was redirected and provided with prn haldol with good effect. Pt woke c/o "spiritual warfare and seeing a little girl standing in the corner of the room." Pt is mumbling his words and comes to the nurses station multiple times during the night for various things, snacks, tooth pain, seeing ghosts etc and returns to his room to nap. Early this morning he began asking about breakfast is smiling and pleasant and reports he is feeling better. Plan: Crisis interruption, stabilization with medication adjustment, management and monitoring in a safe and therapeutic environment until stable.
[2022-09-24 07:30] VITALS: BP 106/60
[2022-09-24] MEDS: nicotine 21mg patch - 24 hr TD SCH (08:00)
[2022-09-24] MEDS: quetiapine 100mg tablet PO SCH ×4 (08:39→20:52)
[2022-09-24] MEDS: benztropine 1mg tablet PO SCH ×2 (08:39→20:46)
[2022-09-24] MEDS: multivitamins, therapeutics tablet PO SCH (08:39)
[2022-09-24] MEDS: haloperidol 5mg tablet PO SCH ×4 (08:39→20:47)
[2022-09-24] MEDS: buprenorphine/naloxone 2-0.5mg sublingual tablet SL SCH ×2 (08:39→15:15)
[2022-09-24] MEDS: LORazepam 1 MG tablet PO SCH ×4 (08:39→20:47)
--- NOTE | 2022-09-24 09:05 | NUR ---
Pt. wanted another tray after eat breakfast, pt. told to wait and became aggressive trying to force his way into the breakfast cart. Pt. escorted back to his room and offered PO medication, pt. knocked medication out of RN's hand and then held up his hands in a fighting posture. Provider contacted and pt. given IM Haldol 10mg, Ativan 2mg, and Benadryl 50mg. Pt. then attempted to elope out of the front door. Pt. escorted into isolation room using BVP method. Pt. then fell asleep in isolation room.
--- NOTE | 2022-09-24 09:45 | NUR ---
Isolation room opened and pt. continues to sleep.
[2022-09-24] MEDS: magnesium hydroxide 30ml (MOM) UD suspension PO PRN (12:11)
--- NOTE | 2022-09-24 16:41 | NUR ---
PLEASE DISREGARD LAST TWO NOTES. WRITTEN ON WRONG PT.
--- NOTE | 2022-09-24 17:39 | NUR ---
Nursing Progress Note: Problem: Per 5150 pt. is here for SA by OD on street drugs after command hallucinations telling him to do so. Pt. states that he took "Fentanyl, black china, meth, 8 ball" in suicide attempt. Interventions: Provide medication administration & medication management; maintained a safe & supportive environment; clear & simple instructions; direction & encouragement regarding performance of ADLs; monitored behaviors & maintained clear boundaries; patient physical assessment & 1:1 patient interview; Therapeutic conversation & active listening; patient education & monitoring. Response: RN received pt. asleep in bed at start of shift. Pt. awoke for breakfast and took AM medications and went back to sleep. Pt. remained in bed and napped intermittently throughout the AM. After lunch pt. observed pacing the [facility]agner and socializing minimally with staff and peers. 1:1 done at bedside, pt. appears depressed and reports feeling hopeless about being in the hospital, states, I think Ill be here forever. Pt. reports seeing demons in his room at night. Pt. states, theres a lot of spiritual stuff going on. Pt. isolated to his room during the evening. Plan: Crisis interruption, stabilization with medication adjustment, management and monitoring in a safe and therapeutic environment until stable.
[2022-09-24] MEDS: haloperidol 5mg tablet PO PRN (18:14)
[2022-09-24 19:00] VITALS: BP 102/48
[2022-09-24] MEDS: psyllium seed 3.4 gm packet PO SCH (20:48)
[2022-09-24] MEDS: traZODone 50mg tablet PO PRN (23:24)
[2022-09-25] MEDS: haloperidol 5mg tablet PO PRN (05:07)
--- NOTE | 2022-09-25 05:08 | NUR ---
Nursing Progress Note: Problem: Per 5150 pt. is here for SA by OD on street drugs after command hallucinations telling him to do so. Pt. states that he took "Fentanyl, black china, meth, 8 ball" in suicide attempt. Interventions: Provide medication administration & medication management; maintained a safe & supportive environment; clear & simple instructions; direction & encouragement regarding performance of ADLs; monitored behaviors & maintained clear boundaries; patient physical assessment & 1:1 patient interview; Therapeutic conversation & active listening; patient education & monitoring. Response: Patient was found sitting in bed at beginning of shift. Patient continued to get up and pace around unit making nonsensical speech and delusional statements. Patient continued to ask when he is leaving and stating he is gong to here. Patient took all night medications and participated in snack before retuning back to room. Patient continues to get up periodically and pace halls asking questions under low mumbled voice. Patient eventually took prn Haldol 5mg and returned to room. Plan: Crisis interruption, stabilization with medication adjustment, management and monitoring in a safe and therapeutic environment until stable.
[2022-09-25] MEDS: multivitamins, therapeutics tablet PO SCH ×2 (07:53→08:00)
[2022-09-25] MEDS: QUEtiapine 25mg tablet PO SCH ×4 (07:53→21:15)
[2022-09-25] MEDS: LORazepam 1 MG tablet PO SCH ×5 (07:53→21:16)
[2022-09-25] MEDS: benztropine 1mg tablet PO SCH ×3 (07:53→21:16)
[2022-09-25] MEDS: haloperidol 5mg tablet PO SCH ×5 (07:53→21:16)
[2022-09-25] MEDS: buprenorphine/naloxone 2-0.5mg sublingual tablet SL SCH ×3 (07:54→15:48)
[2022-09-25] MEDS: acetaminophen 325mg tablet PO PRN ×3 (07:54→15:50)
[2022-09-25 08:00] VITALS: BP 123/80
[2022-09-25] MEDS: nicotine 21mg patch - 24 hr TD SCH (08:00)
--- NOTE | 2022-09-25 08:25 | NUR ---
F/u 09/25: Pt PO declining now fluctuating ~43% avg meals w/ occasional 100% receiving double eggs WB and double entree BIDLD in addition to sometimes multiple snacks per day; partially meeting needs. COLT d/w RN pt PO trends; per RN pt meds adjustments causing decompensation at time in addition to having a tooth ache pending dentist visit in future. Per RN, pt likely accepting of smoothies TIDWM. Given current PO trends will stop double entree BIDLD to minimize food waste and add smoothie TIDWM; dietary notified. LBM 09/24. Will continue to follow. Recommendations: 1) Continue Vegetarian diet per pt request; double eggs WB; smoothies TIDWM; encourage PO 2) resume double entree BIDLD once PO trends improve to avoid food waste 3) MVI supplementation per MD 4) Bowel care PRN 5) Weekly scaled weights Addendum: 09/25/22 at [address] Amended: Links added.
[2022-09-25] MEDS ORDERED: sertraline 50mg tablet PO ONE (13:50)
--- NOTE | 2022-09-25 16:05 | NUR ---
Nursing Progress Note Problem: Per 5150 pt. is here for SA by OD on street drugs after command hallucinations telling him to do so. Pt. states that he took "Fentanyl, black china, meth, 8 ball" in suicide attempt. Pt. states he feels hopeless. Pt. is also delusional, stating, "they won't give me my billion dollars". Pt. states, "I tried killing myself because Im a free michelle. They dont love me but I love them. Yes I do." Interventions: 1:1 assessment, therapeutic conversation, active listening, ensured contract for safety, medication administration/education/monitoring, behavior monitoring and intervention as needed; reality orientation, distraction, redirection, limit setting, encouragement, positive reinforcement, and Q15 minute safety checks. Response: Pt slept through breakfast this morning. He did not get up until around 1100. This nurse attempted to give his meds earlier but pt stated, "just leave me to the Devil!" Pt was given his morning meds late around 1105. His 0800 Haldol and Ativan were held as they were due again at 1200. DANIEL Delgado was notified of pt's meds being given late. Pt was given Tylenol 650mg at 1107 for c/o 6/10 dental pain with some effect. Pt initially denied AH/VH but later in the shift reported that the Suboxone makes him see things like demons and that it also makes him feel "funny" and sick, pt reports it makes him not want to eat and he throws up sometimes. Pt states that he doesn't want to be on Suboxone anymore. Pt appears depressed, pt was given a one time dose of Zoloft 50 mg today at 1402. Pt requested Tylenol again later in the afternoon for dental pain. Pt rated his pain at "666." Pt was given Tylenol 650 mg again at 1550. Pt has lost around 4 kg since last week. Pt has a dentis appointment next week on 10/01. Plan: Pt is conserved and awaiting placement.
[2022-09-25] MEDS: benzocaine (Anbesol) 12ml bottle MM PRN (17:14)
[2022-09-25 19:00] VITALS: BP 138/92
[2022-09-25] MEDS: psyllium seed 3.4 gm packet PO SCH (21:15)
[2022-09-25] MEDS: quetiapine 100mg tablet PO SCH (21:15)
[2022-09-25] MEDS: traZODone 50mg tablet PO PRN (23:21)
--- NOTE | 2022-09-26 02:55 | NUR ---
Nursing Progress Note: Problem: Per 5150 pt. is here for SA by OD on street drugs after command hallucinations telling him to do so. Pt. states that he took "Fentanyl, black china, meth, 8 ball" in suicide attempt. Interventions: Provide medication administration & medication management; maintained a safe & supportive environment; clear & simple instructions; direction & encouragement regarding performance of ADLs; monitored behaviors & maintained clear boundaries; patient physical assessment & 1:1 patient interview; Therapeutic conversation & active listening; patient education & monitoring. Response: received pt. walking the hallway at shift change. Pt. is observed socializing with staff. Walks the hallway with headphones occasionally. Isolates to himself. Participated in snack. Compliant with medications. Denies SI, HI, AH, VH. Continues to have depression. States he "had a good day and slept most of the day". Nicotine patch removed. At 1105 pt. came out of room stating he had a nightmare and asked for hot cocoa. Around 1123 pt. was out of room and asked to have something for sleep.PRN trazodone was administered with effectiveness. Pt. appears to be sleeping. Plan: Crisis interruption, stabilization with medication adjustment, management and monitoring in a safe and therapeutic environment until stable. Addendum: 09/26/22 at 0615 by Anya Leroy RN Pt. has been awake and walking the halls since 4am. Recently, became agitated w/escalating behavior. Karlo Delgado was contacted and approved order for 10mg haldol, 2mg ativan and 50mg benadryl. Addendum: 09/26/22 at 0629 by Anya Leroy RN 10mg haldol, 2mg ativan and 50mg benadryl administered to patient
[2022-09-26] MEDS ORDERED: LORazepam 1 MG tablet PO ONE (06:15)
[2022-09-26] MEDS ORDERED: haloperidol 5mg tablet PO ONE (06:15)
[2022-09-26] MEDS ORDERED: diphenhydrAMINE 25mg capsule PO ONE (06:15)
[2022-09-26] MEDS: benztropine 1mg tablet PO SCH ×2 (07:34→20:15)
[2022-09-26] MEDS: multivitamins, therapeutics tablet PO SCH (07:34)
[2022-09-26] MEDS: buprenorphine/naloxone 2-0.5mg sublingual tablet SL SCH ×2 (07:34→14:25)
[2022-09-26] MEDS: QUEtiapine 25mg tablet PO SCH ×3 (07:34→20:16)
[2022-09-26] MEDS: LORazepam 1 MG tablet PO SCH ×4 (07:35→20:17)
[2022-09-26] MEDS: haloperidol 5mg tablet PO SCH ×4 (07:35→20:16)
[2022-09-26 07:40] VITALS: BP 125/75
[2022-09-26] MEDS: nicotine 21mg patch - 24 hr TD SCH (07:42)
[2022-09-26] MEDS: acetaminophen 325mg tablet PO PRN ×3 (07:42→20:18)
[2022-09-26] MEDS: benzocaine (Anbesol) 12ml bottle MM PRN ×2 (08:34→21:27)
[2022-09-26] MEDS: sertraline 50mg tablet PO SCH (09:02)
[2022-09-26] MEDS ORDERED: ibuprofen 200mg tablet PO PRN (10:55)
--- NOTE | 2022-09-26 16:06 | NUR ---
Nursing Progress Note Problem: Per 5150 pt. is here for SA by OD on street drugs after command hallucinations telling him to do so. Pt. states that he took "Fentanyl, black china, meth, 8 ball" in suicide attempt. Pt. states he feels hopeless. Pt. is also delusional, stating, "they won't give me my billion dollars". Pt. states, "I tried killing myself because Im a free michelle. They dont love me but I love them. Yes I do." Interventions: 1:1 assessment, therapeutic conversation, active listening, ensured contract for safety, medication administration/education/monitoring, behavior monitoring and intervention as needed; reality orientation, distraction, redirection, limit setting, encouragement, positive reinforcement, and Q15 minute safety checks. Response: Pt was awake and yelling during shift change. He was religiously preoccupied and ranting things like, "[place] will fall!" Noc shift obtained orders for one time doses of PO Haldol 10 mg, Benadryl 50 mg, and Ativan 2 mg given at 0624. Held pt's routine 0800 Ativan and Haldol. Pt presented as hypomanic today despite taking all other routine meds. He was restless and hyperverbal, his speech was pressured and tangential. Pt rapidly paced the unit listening to radio headphones. Pt was labile going from smiling broadly and laughing to moments of sadness/near tearfulness. Pt was overly affectionate with staff today, calling a female nurse "moms" and a male nurse "pops." He hugged his provider DANIEL Delgado and told this RN, "I love you." Pt ruminated on his past drug use and mistakes, apologized and promised to do better. Pt made delusional statements of a hindu nature focusing on Shashi, the Devil, and demons. Discussed pt's labile, hypomanic, delusional state with DANIEL Delgado. Pt is no longer on a mood stabilizer. His Depakote was D/c'd due to elevated ammonia levels. Pt was cooperative and able to be redirected despite his increased energy and mostly elevated mood. Plan: Pt is conserved and awaiting placement. Addendum: 09/26/22 at 1633 by Fallon Melgoza RN (Lee) Pt c/o 03/16 tooth pain and was given PRN Tylenol 650 mg at 0742 & again at 1531 with partial effect. He was given PRN Anbesol topically at 0834. He requested ibuprofen and an order was obtained for PRN ibuprofen 600 mg TID, given at 1109 with good effect. Pt was cooperative with his Suboxone today as he wanted it to help with his dental pain.
--- NOTE | 2022-09-26 17:40 | NUR ---
Pt manic, verbalizing delusional content about [employer], [employer], ritual sacrifice of babies. Pt distressed, tormented asking for help, he asked Dr Yeboah for a med to calm his mind. This RN discussed recent lab findings and discontinuance of pt's mood stabilizer Depakote [address] Yeboah ordered Depakote 750 mg now then BID, recheck ammonia level in 5 days.
[2022-09-26] MEDS ORDERED: divalproex 250mg tablet, delayed-release PO ONE (17:45)
[2022-09-26 19:00] VITALS: BP 146/96
[2022-09-26] MEDS: quetiapine 100mg tablet PO SCH (20:15)
[2022-09-26] MEDS: divalproex 250mg tablet, delayed-release PO SCH (20:17)
[2022-09-26] MEDS: psyllium seed 3.4 gm packet PO SCH (20:20)
[2022-09-26] MEDS: traZODone 50mg tablet PO PRN (21:51)
[2022-09-26] MEDS: haloperidol 5mg tablet PO PRN (22:44)
--- NOTE | 2022-09-27 01:03 | NUR ---
Nursing Progress Note: Problem: Per 5150 pt. is here for SA by OD on street drugs after command hallucinations telling him to do so. Pt. states that he took "Fentanyl, black china, meth, 8 ball" in suicide attempt. Interventions: Provide medication administration & medication management; maintained a safe & supportive environment; clear & simple instructions; direction & encouragement regarding performance of ADLs; monitored behaviors & maintained clear boundaries; patient physical assessment & 1:1 patient interview; Therapeutic conversation & active listening; patient education & monitoring. Response: received pt. awake at shift change. He approached this AIR EXPORT OPERATIONS AGENT and apologized for his behavior the night before. Pt is labile, hyperverbal, and tangential speech. Requested PRN Tylenol for L ankle pain. Compliant with bedtime medications. Nicotine patch removed. Participated in snack. Continues rapping and pacing the halls. Pt is observed repeatedly going into room and coming back out within a few minutes. PRN Anbesol provided for c/o tooth pain. Pt. appears to be restless and painful. Went back into room for short period. Offered pt. PRN trazodone and it was administered. A while later patient was pacing the halls again. PRN haldol provided for agitation. Around 2300 pt is out of room states he is in pain from his tooth. CN contacted the and was approved a one time dose of Milroy 5/325 mg . Pt was administered Milroy 5/325mg by this AIR EX[employer] OPERATIONS AGENT. Remained in room until 0130, came out of room, looked at the clock and walked back into room. Pt. is now in bed and appears to be resting. Plan: Crisis interruption, stabilization with medication adjustment, management and monitoring in a safe and therapeutic environment until stable.
[2022-09-27] MEDS: LORazepam 1 MG tablet PO SCH ×4 (07:19→21:29)
[2022-09-27] MEDS: divalproex 250mg tablet, delayed-release PO SCH ×2 (07:20→21:30)
[2022-09-27] MEDS: haloperidol 5mg tablet PO SCH ×4 (07:20→21:30)
[2022-09-27] MEDS: benztropine 1mg tablet PO SCH ×2 (07:20→21:30)
[2022-09-27] MEDS: QUEtiapine 25mg tablet PO SCH ×3 (07:21→21:30)
[2022-09-27] MEDS: sertraline 50mg tablet PO SCH (07:21)
[2022-09-27] MEDS: multivitamins, therapeutics tablet PO SCH (07:21)
[2022-09-27] MEDS: buprenorphine/naloxone 2-0.5mg sublingual tablet SL SCH ×2 (07:22→14:00)
[2022-09-27] MEDS: nicotine 14mg patch - 24hr TD SCH (07:25)
[2022-09-27 07:30] VITALS: BP 126/80
[2022-09-27] MEDS: benzocaine (Anbesol) 12ml bottle MM PRN (08:36)
[2022-09-27] MEDS: NICOTINE POLACRILEX 2 MG LOZENGE BC PRN (13:09)
[2022-09-27] MEDS: acetaminophen 325mg tablet PO PRN ×2 (13:28→21:54)
[2022-09-27] MEDS: haloperidol 5mg tablet PO PRN (13:47)
--- NOTE | 2022-09-27 17:38 | NUR ---
Nursing Progress Note: Problem : Per 5150 pt. is here for SA by OD on street drugs after command hallucinations telling him to do so. Pt. states that he took "Fentanyl, black china, meth, 8 ball" in suicide attempt. Pt. states he feels hopeless. Pt. is also delusional, stating, "they won't give me my billion dollars". Pt. states, "I tried killing myself because Im a free michelle. They dont love me but I love them. Yes I do." Interventions : Maintained a safe and supportive environment, ensured contract for safety, provided clear and simple instructions, monitored behavior and provided intervention as needed, provided active listening and positive encouragement,and maintained Q 15min safety checks. Response : Received pt. up pacing the unit at the beginning of the shift, he went around greeting each staff member in what appeared to be a hypomanic manner, stating loudly, "Good morning mixed family!" Pt. requested his medication and appears to be gaining some insight into his mental illness. He continues to slur his words together and is difficult to understand at times and his thought process remains somewhat disorganized. Pt. makes frequent hyper restorationist statements regarding going to heaven or hell. He appears to be gaining some increased self control over his behaviors AEB reporting wanting to fight one of his fellow peers and then stating, "God wouldn't want me to do that." Pt. continued to pace restlessly throughout the shift and was very labile at intervals requiring frequent redirection and attention from staff. Pt. was at one point triggered by a female peer who stepped in front of him to ask a question. Pt. yelled out agitatedly, "She is so rude! I'm going to have my sister beat her up, she's gangster!" Staff was able to redirect pt. and de-escalate his behavior and he later apologized to this peer. Pt. attended the patio with others in the afternoon and afterwards began to complain about left leg pain from an old injury. PRN Tylenol was administered, and this freelance copywriter encouraged pt. to sit and rest his legs, however he refused to comply. Pt. continued to pace throughout the day becoming increasingly agitated, yelling out, and punching exit doors at intervals. PRN Haldol was administered with some electiveness. Pt. began demanding an x-ray of his leg and stated agitatedly, "I'm going to keep doing this until they arrest me!" Pt's behaviors and request for an x-ray were endorsed to DANIEL Delgado. Pt. does not exhibit any s/s of difficulty with ambulation and continued to refuse to sit and rest his leg. He perseverated on this for some time, but was finally able to be redirected and apologized for his behaviors, will continue to monitor closely. Plan :Pt. continues to require a safe and supportive environment and medication adjustments.
[2022-09-27 20:00] VITALS: BP 101/50
[2022-09-27] MEDS: psyllium seed 3.4 gm packet PO SCH (21:00)
[2022-09-27] MEDS ORDERED: HYDROcodone/acetaminophen 5mg/325mg tablet PO ONE (21:00)
[2022-09-27] MEDS: traZODone 50mg tablet PO PRN (21:32)
[2022-09-27] MEDS: quetiapine 100mg tablet PO SCH (21:59)
--- NOTE | 2022-09-28 00:49 | NUR ---
Nursing Progress Note: Problem : Per 5150 pt. is here for SA by OD on street drugs after command hallucinations telling him to do so. Pt. states that he took "Fentanyl, black china, meth, 8 ball" in suicide attempt. Pt. states he feels hopeless. Pt. is also delusional, stating, "they won't give me my billion dollars". Pt. states, "I tried killing myself because Im a free michelle. They dont love me but I love them. Yes I do." Interventions : Maintained a safe and supportive environment, ensured contract for safety, provided clear and simple instructions, monitored behavior and provided intervention as needed, provided active listening and positive encouragement,and maintained Q 15min safety checks. Response :Patient was observed pacing the unit following shift change. Light socialization only. Speech is audible but some slurring. The patient complains of feeling depressed. The usual complaint of teeth and gum pain is present. The patient mostly linear. He apologizes for his recent outbursts and bad behavior. He is cooperative and medication compliant. Plan :Pt. continues to require a safe and supportive environment and medication adjustments.
[2022-09-28] MEDS: multivitamins, therapeutics tablet PO SCH (07:16)
[2022-09-28] MEDS: haloperidol 5mg tablet PO SCH ×4 (07:16→20:00)
[2022-09-28] MEDS: benztropine 1mg tablet PO SCH ×2 (07:16→20:00)
[2022-09-28] MEDS: QUEtiapine 25mg tablet PO SCH ×3 (07:16→20:00)
[2022-09-28] MEDS: divalproex 250mg tablet, delayed-release PO SCH ×2 (07:16→20:00)
[2022-09-28] MEDS: sertraline 50mg tablet PO SCH (07:16)
[2022-09-28] MEDS: LORazepam 1 MG tablet PO SCH ×4 (07:16→20:00)
[2022-09-28] MEDS: buprenorphine/naloxone 2-0.5mg sublingual tablet SL SCH ×2 (07:17→14:43)
[2022-09-28] MEDS: nicotine 14mg patch - 24hr TD SCH (07:17)
[2022-09-28 07:32] VITALS: BP 151/74
[2022-09-28] MEDS ORDERED: LORazepam 1 MG tablet PO ONE (10:45)
[2022-09-28] MEDS: acetaminophen 325mg tablet PO PRN ×2 (11:17→16:34)
[2022-09-28] MEDS: benzocaine (Anbesol) 12ml bottle MM PRN ×2 (12:33→21:25)
--- NOTE | 2022-09-28 17:48 | NUR ---
NURSING PROGRESS NOTE: Problem : Per 5150 pt. is here for SA by OD on street drugs after command hallucinations telling him to do so. Pt. states that he took "Fentanyl, black china, meth, 8 ball" in suicide attempt. Pt. states he feels hopeless. Pt. is also delusional, stating, "they won't give me my billion dollars". Pt. states, "I tried killing myself because Im a free michelle. They dont love me but I love them. Yes I do." Interventions : One on one with patient to assess mood d/o, administered scheduled and PRN medication as ordered with no adverse side effects, established and maintained clear boundaries, oriented to reality, monitored behavior and provided intervention as needed, Q15 min safety rounds. Response : Received patient sleeping at shift change, pt woke before 0700 and requested morning medications. Pts mood went from pleasant to manic Pt was twirling and dancing down the wagner, rapping, at one point running. Pt was saying I am in a good mood! Pt required redirection as he would stand talking loudly to the closed observation room door, agitating the patient inside. Pt presents with a bright affect, has rapid, disorganized speech. Pt at one point asked staff to call me Lucifer. When told no pt stated Yes he is bad, pt then closed his eyes and started praying. Pt is difficult to understand with his slurred, mumbled hyper verbal speech. PRN Haldol was given without effect. Paula Delgado was on unit and ordered one time dose of Ativan 2mg. PRN was effective. Pt calmed pacing unit, however was still unable to sit and watch any part of the football game. Pt c/o toothache pain, PRN Tylenol, Anbesol and scheduled Motrin were administered. Pt has dentist appointment next week. PT HAS PRN ATIVAN 2MG ORDERED UNTIL MANIC EPISODE SUBSIDES. Plan: Patient is LPS conserved and awaiting placement. Pt continues to be delusional or tangential. Pt continues to exhibit poor insight and judgment. Pt continues to require titration of medication in a safe and supportive environment.
[2022-09-28 19:11] VITALS: BP 98/57
[2022-09-28] MEDS: quetiapine 100mg tablet PO SCH (20:00)
[2022-09-28] MEDS: traZODone 50mg tablet PO PRN ×2 (20:00→21:26)
[2022-09-28] MEDS: psyllium seed 3.4 gm packet PO SCH (20:00)
--- NOTE | 2022-09-28 21:03 | NUR ---
Nicotine patch removed from left shoulder
--- NOTE | 2022-09-28 21:40 | NUR ---
NURSING PROGRESS NOTE: Problem : Per 5150 pt. is here for SA by OD on street drugs after command hallucinations telling him to do so. Pt. states that he took "Fentanyl, black china, meth, 8 ball" in suicide attempt. Pt. states he feels hopeless. Pt. is also delusional, stating, "they won't give me my billion dollars". Pt. states, "I tried killing myself because Im a free michelle. They dont love me but I love them. Yes I do." Interventions : One on one with patient to assess mood d/o, administered scheduled and PRN medication as ordered with no adverse side effects, established and maintained clear boundaries, oriented to reality, monitored behavior and provided intervention as needed, Q15 min safety rounds. Response : Pt was resting in bed at change of shift. Pt woke for HS meds, pt denies S/I, denies a/vh. Pt took HS meds and came out of his room and briefly socialized with peers and had a snack. Pt c/o 10/10 pain in his mouth from his tooth and was given prn anbesol and tylenol. Pt given PRN trazodone with repeat dose for sleep. Pt went back to bed. Pt is pleasant during interactions this evening. Plan: Patient is LPS conserved and awaiting placement. Pt continues to be delusional or tangential. Pt continues to exhibit poor insight and judgment. Pt continues to require titration of medication in a safe and supportive environment.
[2022-09-29 07:38] VITALS: BP 106/54
[2022-09-29] MEDS: sertraline 50mg tablet PO SCH (08:21)
[2022-09-29] MEDS: divalproex 250mg tablet, delayed-release PO SCH ×2 (08:21→20:15)
[2022-09-29] MEDS: LORazepam 1 MG tablet PO SCH ×4 (08:21→20:15)
[2022-09-29] MEDS: benztropine 1mg tablet PO SCH ×2 (08:22→20:15)
[2022-09-29] MEDS: QUEtiapine 25mg tablet PO SCH ×3 (08:22→20:15)
[2022-09-29] MEDS: multivitamins, therapeutics tablet PO SCH (08:22)
[2022-09-29] MEDS: haloperidol 5mg tablet PO SCH ×4 (08:22→20:15)
[2022-09-29] MEDS: buprenorphine/naloxone 2-0.5mg sublingual tablet SL SCH ×2 (08:22→15:18)
[2022-09-29] MEDS: nicotine 14mg patch - 24hr TD SCH (08:42)
[2022-09-29] MEDS: LORazepam 1 MG tablet PO PRN (10:42)
--- NOTE | 2022-09-29 14:39 | NUR ---
NURSING PROGRESS NOTE: Problem : Per 5150 pt. is here for SA by OD on street drugs after command hallucinations telling him to do so. Pt. states that he took "Fentanyl, black china, meth, 8 ball" in suicide attempt. Pt. states he feels hopeless. Pt. is also delusional, stating, "they won't give me my billion dollars". Pt. states, "I tried killing myself because Im a free basil. They dont love me but I love them. Yes I do." Interventions : One on one with patient to assess mood d/o, administered scheduled and PRN medication as ordered with no adverse side effects, established and maintained clear boundaries, oriented to reality, monitored behavior and provided intervention as needed, Q15 min safety rounds. Response : Received patient sleeping at shift change, pt woke before 0700 and requested morning medications. Pt was pleasant this morning not as manic as yesterday, still some dancing down the wagner and rapid speech and racing thoughts. Pt received call from his brother telling him their uncle was poisoned by Fentanyl and . Pt at first was saying I am going to kill whoever did this, Pt then went into tears at this point patient requested something for anxiety. PRN Ativan was administered with effect. Pt stated I just have to leave to the [facility]. I will just have to pray for him. Pt later asked video game script writer should I tell my son about being a Basil. What happens if he finds out and gets mad at me? I am not proud of it. Hook Up attempted to reorient pt to reality, I am telling the truth. Pt continues to c/o tooth pain, treated with PRN Anbesol, Motrin, Tylenol. No other behaviors as of this writing. Pt has a dentist appointment on 10/01/22. Plan: Patient is LPS conserved and awaiting placement. Pt continues to be delusional or tangential. Pt continues to exhibit poor insight and judgment. Pt continues to require titration of medication in a safe and supportive environment. Addendum: 09/29/22 at 1544 by Sri Ye RN Pt requested shower, however when came out a towel was wet, but the floor wasn't. Addendum: 09/29/22 at 1558 by Sri Ye RN Pt napping comfortably on bed, rr even and unlabored. Addendum: 09/29/22 at 1714 by Sri Ye RN Held 1600 Ativan - pt sedated. No behaviors. Addendum: 09/29/22 at 1725 by Sri Ye RN Pt woke up from his nap feeling a little groggy, but states "I feel better, I feel happy."
[2022-09-29] MEDS: benzocaine (Anbesol) 12ml bottle MM PRN (15:18)
[2022-09-29] MEDS: NICOTINE POLACRILEX 2 MG LOZENGE BC PRN (17:55)
[2022-09-29] MEDS: acetaminophen 325mg tablet PO PRN (18:19)
[2022-09-29 19:34] VITALS: BP 113/67
[2022-09-29] MEDS: quetiapine 100mg tablet PO SCH (20:15)
[2022-09-29] MEDS: psyllium seed 3.4 gm packet PO SCH (20:15)
[2022-09-29] MEDS: traZODone 50mg tablet PO PRN (20:15)
--- NOTE | 2022-09-29 21:52 | NUR ---
NURSING PROGRESS NOTE: Problem : Per 5150 pt. is here for SA by OD on street drugs after command hallucinations telling him to do so. Pt. states that he took "Fentanyl, black china, meth, 8 ball" in suicide attempt. Pt. states he feels hopeless. Pt. is also delusional, stating, "they won't give me my billion dollars". Pt. states, "I tried killing myself because Im a free michelle. They dont love me but I love them. Yes I do." Interventions : One on one with patient to assess mood d/o, administered scheduled and PRN medication as ordered with no adverse side effects, established and maintained clear boundaries, oriented to reality, monitored behavior and provided intervention as needed, Q15 min safety rounds. Response : Pt was walking in the halls at change of shift. Pt approached nurses station and states he is in a good mood. "I just feel really good! Im not sleeping too much and I can do more stuff." Pt spent time napping in his room and walking in the hallway. Pt took HS meds, c/o tooth pain 04/16 and requested anbesol. Pt went to sleep shortly after taking HS meds. Plan: Patient is LPS conserved and awaiting placement. Pt continues to be delusional or tangential. Pt continues to exhibit poor insight and judgment. Pt continues to require titration of medication in a safe and supportive environment.
[2022-09-30] MEDS: benztropine 1mg tablet PO SCH ×2 (07:52→20:08)
[2022-09-30] MEDS: sertraline 50mg tablet PO SCH (07:53)
[2022-09-30] MEDS: QUEtiapine 25mg tablet PO SCH ×3 (07:53→20:07)
[2022-09-30] MEDS: multivitamins, therapeutics tablet PO SCH (07:53)
[2022-09-30] MEDS: LORazepam 1 MG tablet PO SCH ×4 (07:53→20:09)
[2022-09-30] MEDS: divalproex 250mg tablet, delayed-release PO SCH ×2 (07:53→20:07)
[2022-09-30] MEDS: haloperidol 5mg tablet PO SCH ×4 (07:53→20:07)
[2022-09-30] MEDS: nicotine 14mg patch - 24hr TD SCH (07:54)
[2022-09-30] MEDS: magnesium hydroxide 30ml (MOM) UD suspension PO PRN (08:16)
[2022-09-30] MEDS: buprenorphine/naloxone 2-0.5mg sublingual tablet SL SCH ×2 (08:16→15:33)
[2022-09-30] MEDS: docusate sod 100mg capsule PO SCH ×2 (08:49→20:06)
[2022-09-30] MEDS: NICOTINE POLACRILEX 2 MG LOZENGE BC PRN ×4 (08:52→18:14)
[2022-09-30 08:59] VITALS: BP 138/78
[2022-09-30] MEDS: sulfamethoxazole/trimethoprim DS (800/160mg) tablet PO SCH ×2 (12:21→20:08)
--- NOTE | 2022-09-30 14:05 | NUR ---
NURSING PROGRESS NOTE: Problem : Per 5150 pt. is here for SA by OD on street drugs after command hallucinations telling him to do so. Pt. states that he took "Fentanyl, black china, meth, 8 ball" in suicide attempt. Pt. states he feels hopeless. Pt. is also delusional, stating, "they won't give me my billion dollars". Pt. states, "I tried killing myself because Im a free michelle. They dont love me but I love them. Yes I do." Interventions : One on one with patient to assess mood d/o, administered scheduled and PRN medication as ordered with no adverse side effects, established and maintained clear boundaries, oriented to reality, monitored behavior and provided intervention as needed, Q15 min safety rounds. Response : Received patient sleeping at shift change. Pt woke prior to breakfast and requested his medications. Pt reports his mood Im happy, but feels a little tired. Pt states I slept good. Pts affect is calm and not constricted. Pt brightens with conversation. Speech is rapid, but pts behavior is not as maniac. Pt reported a BM this morning, but stool is hard. Administered MOM and received order for Colace 100 mg BID. Dietary is out of prune juice. Pt paces wagner rapping or listening to head phones. Pt c/o toe pain stating I stubbed it last week. On assessment noted mild red and yellow tinted drainage. Erythema around the base of the nail. Area was cleansed with NS and dressed. Received order from Dr. Fontaine for Septra DS 1 tab x 7 days. Pt remained calm throughout the shift, napping after lunch. Nicotine lozenge x 2. Pt continues to c/o tooth pain, treated with PRN Anbesol, Tylenol. No other behaviors as of this writing. Pt has a dentist appointment on 10/01/22. Plan: Patient is LPS conserved and awaiting placement. Pt continues to be delusional or tangential. Pt continues to exhibit poor insight and judgment. Pt continues to require titration of medication in a safe and supportive environment.
--- NOTE | 2022-09-30 14:09 | NUR ---
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 There is a white envelope with his name on it on the charge nurses clipboard that needs to go with him. It has his ID, Med[employer]-k[employer] card, and $ for a co-pay. JOEL Casanova
[2022-09-30] MEDS: acetaminophen 325mg tablet PO PRN (19:08)
[2022-09-30 19:47] VITALS: BP 143/84
[2022-09-30] MEDS: psyllium seed 3.4 gm packet PO SCH (20:07)
[2022-09-30] MEDS: quetiapine 100mg tablet PO SCH (20:07)
[2022-09-30] MEDS: lactobacillus rhamnosus 10,000 MMU CELLS/CAPSULE PO SCH (20:08)
--- NOTE | 2022-09-30 23:16 | NUR ---
NURSING PROGRESS NOTE: Problem : Per 5150 pt. is here for SA by OD on street drugs after command hallucinations telling him to do so. Pt. states that he took "Fentanyl, black china, meth, 8 ball" in suicide attempt. Pt. states he feels hopeless. Pt. is also delusional, stating, "they won't give me my billion dollars". Pt. states, "I tried killing myself because Im a free michelle. They dont love me but I love them. Yes I do." Interventions : One on one with patient to assess mood d/o, administered scheduled and PRN medication as ordered with no adverse side effects, established and maintained clear boundaries, oriented to reality, monitored behavior and provided intervention as needed, Q15 min safety rounds. Response: Pt was walking in the hallway at change of shift, Pt is smiling and states he is in a good mood, but wants his meds early today because he has a dentist appt tomorrow. Assured patient he would still be able to attend his appt if his meds were given as scheduled. Pt asked to have laundry done so he has something to wear for his appointment and his laundry was done. Pt requested a snack and is c/o tooth pain requesting prn tylenol. Pt went to bed early anticipating his dental appt. Pt was given HS meds and PRN trazodone for sleep. Pt declined an evening snack. Pt does not want to take off his nicotine patch tonight. Pt has a dressing applied to his left great toe stating he "stubbed" his toe. Dressing is CDI. Plan: Patient is LPS conserved and awaiting placement. Pt continues to be delusional or tangential. Pt continues to exhibit poor insight and judgment. Pt continues to require titration of medication in a safe and supportive environment.
[2022-10-01] MEDS: benztropine 1mg tablet PO SCH ×2 (07:15→19:08)
[2022-10-01] MEDS: sertraline 50mg tablet PO SCH (07:15)
[2022-10-01] MEDS: buprenorphine/naloxone 2-0.5mg sublingual tablet SL SCH ×2 (07:15→15:00)
[2022-10-01] MEDS: docusate sod 100mg capsule PO SCH ×2 (07:16→19:09)
[2022-10-01] MEDS: haloperidol 5mg tablet PO SCH ×4 (07:16→19:09)
[2022-10-01] MEDS: lactobacillus rhamnosus 10,000 MMU CELLS/CAPSULE PO SCH (07:16)
[2022-10-01] MEDS: multivitamins, therapeutics tablet PO SCH (07:16)
[2022-10-01] MEDS: QUEtiapine 25mg tablet PO SCH ×3 (07:16→19:08)
[2022-10-01] MEDS: sulfamethoxazole/trimethoprim DS (800/160mg) tablet PO SCH ×2 (07:16→19:07)
[2022-10-01] MEDS: LORazepam 1 MG tablet PO SCH ×4 (07:16→19:09)
[2022-10-01] MEDS: divalproex 250mg tablet, delayed-release PO SCH ×2 (07:16→19:08)
[2022-10-01 07:26] VITALS: BP 110/66
[2022-10-01] MEDS: acetaminophen 325mg tablet PO PRN ×2 (07:29→20:10)
[2022-10-01] MEDS: NICOTINE POLACRILEX 2 MG LOZENGE BC PRN (07:40)
[2022-10-01] MEDS: haloperidol 5mg tablet PO PRN (07:55)
[2022-10-01] MEDS: LORazepam 1 MG tablet PO PRN ×2 (07:55→20:09)
[2022-10-01] MEDS: nicotine 14mg patch - 24hr TD SCH (08:20)
[2022-10-01] MEDS: mag hydrox/Alum hydrox/simeth 30ml oral suspension PO PRN (08:20)
--- NOTE | 2022-10-01 09:05 | NUR ---
F/u 10/01: Pt PO fluctuates though overall more consistent improving to ~90-100% avg meals w/ double eggs WB, smoothie TID, and snacks likely meeting needs. Dentist appointment for tooth ache today per EMR. LBM 09/29. No further nutrition interventions at this time. Will continue to monitor. Recommendations: 1) Continue Vegetarian diet per pt request; double eggs WB; smoothies TIDWM; encourage PO 2) MVI supplementation per MD 3) Bowel care PRN 4) Weekly scaled weights Addendum: 10/01/22 at [address] Amended: Links added.
[2022-10-01] MEDS ORDERED: LORazepam 2 mg/ml vial ONE (17:14)
[2022-10-01] MEDS ORDERED: diphenhydrAMINE 50 mg/ml inj ONE (17:15)
[2022-10-01] MEDS ORDERED: haloperidol lactate 5mg/ml inj ONE (17:15)
--- NOTE | 2022-10-01 18:26 | NUR ---
NURSING PROGRESS NOTE: Problem : Per 5150 pt. is here for SA by OD on street drugs after command hallucinations telling him to do so. Pt. states that he took "Fentanyl, black china, meth, 8 ball" in suicide attempt. Pt. states he feels hopeless. Pt. is also delusional, stating, "they won't give me my billion dollars". Pt. states, "I tried killing myself because Im a free michelle. They dont love me but I love them. Yes I do." Interventions : One on one with patient to assess mood d/o, administered scheduled and PRN medication as ordered with no adverse side effects, established and maintained clear boundaries, oriented to reality, monitored behavior and provided intervention as needed, Q15 min safety rounds. Response : RN received pt. asleep at start of shift. Pt. awoke shortly after and requesting a hot chocolate and his medications. Pt. took all medications an requesting Tylenol and ambesol for left tooth pain. Pt. received PRN analgesics with good effect. Pt. reports he is not looking forward to getting his tooth pulled and requested PRN. Pt. received Ativan 2mg po and Haldol 5mg with good effect. Pt left for Dentist appointment at 0920. Pt. returned from dentist appointment at 1700 and was very agitated. Pt. reports his conservator got him a coffee with 7 shots of espresso and that he drank 12 cups of coffee at the dentist office. Pt. began yelling that the [employer] were coming to get him and demanding to be let out. Pt. given verbal redirection not to yell but pt. continued to ramp up aggressive behavior, threatening this RN, stating, Im gonna beat the out of you and posturing in a threatening manor. Security was called and RN received one time dose of Haldol 5mg, Ativan 2mg, and Benadryl 25mg IM. Pt. received medication with moderate effect. Pt. continues to perseverate on Lucifer, [employer]asons, and other delusional content. Plan: Patient is LPS conserved and awaiting placement. Pt continues to be delusional or tangential. Pt continues to exhibit poor insight and judgment. Pt continues to require titration of medication in a safe and supportive environment.
[2022-10-01] MEDS: psyllium seed 3.4 gm packet PO SCH (19:07)
[2022-10-01] MEDS: quetiapine 100mg tablet PO SCH (19:08)
[2022-10-01] MEDS ORDERED: prazosin 5mg capsule PO ONE (19:20)
[2022-10-01] MEDS: traZODone 50mg tablet PO PRN ×2 (19:25→20:09)
[2022-10-01 20:42] VITALS: BP 130/83
--- NOTE | 2022-10-02 05:46 | NUR ---
NURSING PROGRESS NOTE: Problem : Per 5150 pt. is here for SA by OD on street drugs after command hallucinations telling him to do so. Pt. states that he took "Fentanyl, black china, meth, 8 ball" in suicide attempt. Pt. states he feels hopeless. Pt. is also delusional, stating, "they won't give me my billion dollars". Pt. states, "I tried killing myself because Im a free michelle. They dont love me but I love them. Yes I do." Interventions : One on one with patient to assess mood d/o, administered scheduled and PRN medication as ordered with no adverse side effects, established and maintained clear boundaries, oriented to reality, monitored behavior and provided intervention as needed, Q15 min safety rounds. Response : Patient was found standing in [address] talking very loudly about his dentist ap at change of shift. Patient continued to go on about all the caffine he had and all the drugs he was give. Patient initially refused night medications stating they were giving him bad dreams of his family being killed and him being taken away by demons. Patient stated the the staff was trying to cause him to overdose and that he would take another round of shits but no medications. Eventually Patient agreed to take night medications if security would come up on t the floor. Security came and patient still required some coking to take night medication but eventually did. 45 Minutes later Patient still continues to yell and talk about delusions. Dr fortune ordered prazosin 5mg to help with night ponce. Patient was also given prn lorazepam 2mg and prn trazodone 100mg to help him sleep. 1 hour later patient got up still upset talking about dentist appointment and complaining of tooth pain. Patient was given repeat trazodone 100mg along with Tylenol 650mg. Patient was finally observed sleeping. Plan: Patient is LPS conserved and awaiting placement. Pt continues to be delusional or tangential. Pt continues to exhibit poor insight and judgment. Pt continues to require titration of medication in a safe and supportive environment.
[2022-10-02] MEDS: LORazepam 1 MG tablet PO SCH ×4 (07:50→21:05)
[2022-10-02] MEDS: multivitamins, therapeutics tablet PO SCH (07:50)
[2022-10-02] MEDS: haloperidol 5mg tablet PO SCH ×4 (07:51→21:05)
[2022-10-02] MEDS: QUEtiapine 25mg tablet PO SCH ×3 (07:51→21:01)
[2022-10-02] MEDS: lactobacillus rhamnosus 10,000 MMU CELLS/CAPSULE PO SCH (07:51)
[2022-10-02] MEDS: benztropine 1mg tablet PO SCH ×2 (07:51→21:00)
[2022-10-02] MEDS: sulfamethoxazole/trimethoprim DS (800/160mg) tablet PO SCH ×2 (07:51→21:03)
[2022-10-02] MEDS: divalproex 250mg tablet, delayed-release PO SCH ×2 (07:51→21:00)
[2022-10-02] MEDS: sertraline 50mg tablet PO SCH (07:51)
[2022-10-02] MEDS: docusate sod 100mg capsule PO SCH ×2 (07:51→20:59)
[2022-10-02] MEDS: buprenorphine/naloxone 2-0.5mg sublingual tablet SL SCH ×2 (07:52→15:00)
[2022-10-02 08:00] VITALS: BP 100/50
[2022-10-02] MEDS: nicotine 14mg patch - 24hr TD SCH (08:03)
[2022-10-02] MEDS: benzocaine (Anbesol) 12ml bottle MM PRN ×2 (08:20→12:19)
[2022-10-02] MEDS: acetaminophen 325mg tablet PO PRN (09:13)
[2022-10-02] MEDS: LORazepam 1 MG tablet PO PRN (09:13)
[2022-10-02] MEDS ORDERED: haloperidol lactate 5mg/ml inj ONE (09:49)
[2022-10-02] MEDS ORDERED: diphenhydrAMINE 50 mg/ml inj ONE (09:49)
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
[2022-10-02] MEDS: quetiapine 100mg tablet PO SCH (21:00)
[2022-10-02] MEDS: psyllium seed 3.4 gm packet PO SCH (21:05)
--- NOTE | 2022-10-03 05:05 | NUR ---
Nursing Progress Note Problem: Per 5150 pt. is here for SA by OD on street drugs after command hallucinations telling him to do so. Pt. states that he took "Fentanyl, black china, meth, 8 ball" in suicide attempt. Pt. states he feels hopeless. Pt. is also delusional, stating, "they won't give me my billion dollars". Pt. states, "I tried killing myself because Im a free michelle. They dont love me but I love them. Yes I do." Interventions: 1:1 assessment, therapeutic conversation, active listening, ensured contract for safety, medication administration/education/monitoring, behavior monitoring and intervention as needed; reality orientation, distraction, redirection, limit setting, elopement prevention, show of support, gave emergent IM meds, seclusion, positive reinforcement, and Q15 minute safety checks. Response: Patient was found sleeping at beginning of shift. Except for getting up once for food patient spent all shift self isolating in room and sleeping. Patient had to be awaken to take night medications and went right back to bed. Plan: Pt is conserved and awaiting placement.
[2022-10-03] MEDS: acetaminophen 325mg tablet PO PRN (07:40)
[2022-10-03] MEDS: lactobacillus rhamnosus 10,000 MMU CELLS/CAPSULE PO SCH (07:43)
[2022-10-03] MEDS: nicotine 14mg patch - 24hr TD SCH (07:43)
[2022-10-03] MEDS: benztropine 1mg tablet PO SCH ×2 (07:44→20:36)
[2022-10-03] MEDS: haloperidol 5mg tablet PO SCH ×4 (07:44→20:36)
[2022-10-03] MEDS: QUEtiapine 25mg tablet PO SCH ×3 (07:44→20:35)
[2022-10-03] MEDS: sertraline 50mg tablet PO SCH (07:44)
[2022-10-03] MEDS: divalproex 250mg tablet, delayed-release PO SCH ×2 (07:44→20:35)
[2022-10-03] MEDS: LORazepam 1 MG tablet PO SCH ×4 (07:44→20:35)
[2022-10-03] MEDS: sulfamethoxazole/trimethoprim DS (800/160mg) tablet PO SCH ×2 (07:44→20:35)
[2022-10-03] MEDS: docusate sod 100mg capsule PO SCH ×2 (07:45→20:35)
[2022-10-03] MEDS: buprenorphine/naloxone 2-0.5mg sublingual tablet SL SCH ×2 (07:45→16:35)
[2022-10-03] MEDS: multivitamins, therapeutics tablet PO SCH (07:45)
[2022-10-03 08:00] VITALS: BP 112/58
[2022-10-03] MEDS: haloperidol 5mg tablet PO PRN (09:00)
[2022-10-03] MEDS: LORazepam 1 MG tablet PO PRN (09:01)
--- NOTE | 2022-10-03 15:10 | NUR ---
BEHAVIORAL PLAN Christophe can earn rewards for good behavior. Christophe's choice of rewards are snack size snickers and peanut butter cups, chocolate milk, and caffeine FREE coke. (composition worker will provide a stash of rewards on Thursday). Good behavior includes: following the rules, taking his medications, speaking nicely to others, attending groups, and cleaning the tables after meals (or some other chore of his liking). Any threatening or aggressive behavioral outbursts should not be rewarded. It is highly important for staff to be consistent with Christophe. JOEL Casanova
--- NOTE | 2022-10-03 15:28 | NUR ---
Christophe's mother sent him a b-day package with a hat, shirt, letter with $20 bill and several checks ($800 total). Called his Public Guardian, Magaly, and informed her of the checks and asked for a return call. JOEL Casanova
[2022-10-03] MEDS: NICOTINE POLACRILEX 2 MG LOZENGE BC PRN (16:35)
--- NOTE | 2022-10-03 18:00 | NUR ---
Nursing Progress Note: Problem: Per 5150 pt. is here for SA by OD on street drugs after command hallucinations telling him to do so. Pt. states that he took "Fentanyl, black china, meth, 8 ball" in suicide attempt. Pt. states he feels hopeless. Pt. is also delusional, stating, "they won't give me my billion dollars". Pt. states, "I tried killing myself because Im a free michelle. They dont love me but I love them. Yes I do." Interventions: 1:1 assessment, therapeutic conversation, active listening, ensured contract for safety, medication administration/education/monitoring, behavior monitoring and intervention as needed; reality orientation, distraction, redirection, limit setting, elopement prevention, show of support, gave emergent IM meds, seclusion, positive reinforcement, and Q15 minute safety checks. Response: Patient woke up this morning feeling sorry for himself, per his usual after he creates chaos like yesterday. He apologized to people, also per his usual. It is not unreasonable for him to feel the way he does. This place is worse than snf. At least if youre in snf, you know when you will get out. They get to spend some time outside every day. Not here, if were hollie once a week, but thats rare. His frustration is palpable, and he sees no end to this snf sentence. Patients day started rough, and there was potential escalation, but de-escalation was effective. He has been pretty calm since this morning. Patient does need his nurse to sit and just listen to him so he can talk out his frustrations. He has been compliant with all medications today. Plan: Pt is conserved and awaiting placement.
[2022-10-03 19:00] VITALS: BP 100/42
[2022-10-03] MEDS: quetiapine 100mg tablet PO SCH (20:35)
[2022-10-03] MEDS: psyllium seed 3.4 gm packet PO SCH (20:36)
--- NOTE | 2022-10-04 04:00 | NUR ---
RN PROGRESS NOTE: LEGAL HOLD: LPS for GD PROBLEM: Per 5150 pt. is here for SA by OD on street drugs after command hallucinations telling him to do so. Pt. states that he took "Fentanyl, black china, meth, 8 ball" in suicide attempt. Pt. states he feels hopeless. Pt. is also delusional, stating, "they won't give me my billion dollars". Pt. states, "I tried killing myself because Im a free michelle. They dont love me but I love them. Yes I do." INTERVENTIONS: 1:1 assessment, ensured contract for safety, medication administration/education/monitoring, behavior monitoring and intervention as needed; reality orientation, elopement prevention, show of support, positive reinforcement, and Q15 minute safety checks. RESPONSE: In bed at COS, remained in bed during shift. Awake for PM meds. Medication compliant. Client avoids eye contact, has a flat affect, and depressed mood. Guarded and withdrawn.
[2022-10-04] MEDS: NICOTINE POLACRILEX 2 MG LOZENGE BC PRN (07:30)
[2022-10-04] MEDS: benzocaine (Anbesol) 12ml bottle MM PRN ×2 (07:30→15:25)
[2022-10-04] MEDS: nicotine 14mg patch - 24hr TD SCH (07:48)
[2022-10-04] MEDS: sertraline 50mg tablet PO SCH (07:49)
[2022-10-04] MEDS: divalproex 250mg tablet, delayed-release PO SCH ×2 (07:49→19:45)
[2022-10-04] MEDS: LORazepam 1 MG tablet PO SCH ×4 (07:49→19:44)
[2022-10-04] MEDS: sulfamethoxazole/trimethoprim DS (800/160mg) tablet PO SCH ×2 (07:49→19:46)
[2022-10-04] MEDS: QUEtiapine 25mg tablet PO SCH ×3 (07:49→19:46)
[2022-10-04] MEDS: lactobacillus rhamnosus 10,000 MMU CELLS/CAPSULE PO SCH (07:50)
[2022-10-04] MEDS: haloperidol 5mg tablet PO SCH ×4 (07:50→19:46)
[2022-10-04] MEDS: benztropine 1mg tablet PO SCH ×2 (07:50→19:47)
[2022-10-04] MEDS: docusate sod 100mg capsule PO SCH ×2 (07:51→19:46)
[2022-10-04] MEDS: multivitamins, therapeutics tablet PO SCH (07:56)
[2022-10-04] MEDS: buprenorphine/naloxone 2-0.5mg sublingual tablet SL SCH ×2 (07:56→14:49)
[2022-10-04 08:00] VITALS: BP 137/81
[2022-10-04] MEDS: acetaminophen 325mg tablet PO PRN ×2 (08:48→14:50)
--- NOTE | 2022-10-04 17:37 | NUR ---
Nursing Progress Note: Problem: Per 5150 pt. is here for SA by OD on street drugs after command hallucinations telling him to do so. Pt. states that he took "Fentanyl, black china, meth, 8 ball" in suicide attempt. Pt. states he feels hopeless. Pt. is also delusional, stating, "they won't give me my billion dollars". Pt. states, "I tried killing myself because Im a free michelle. They dont love me but I love them. Yes I do." Interventions: 1:1 assessment, therapeutic conversation, active listening, ensured contract for safety, medication administration/education/monitoring, behavior monitoring and intervention as needed; reality orientation, distraction, redirection, limit setting, elopement prevention, show of support, gave emergent IM meds, seclusion, positive reinforcement, and Q15 minute safety checks. Response: Patient awakened at 0700 complaining about his teeth pain. Tylenol, Naprosyn, Suboxone, and Anbesol, with continued pain. Patient states that he is depressed and anxious. Prn Ativan 2 mg given with good effect. Patient has been cooperative on the unit today and medication compliant. Patient comes to nurse whenever he feels himself escalate and take medications. Plan: Pt is conserved and awaiting placement.
[2022-10-04] MEDS: quetiapine 100mg tablet PO SCH (19:45)
[2022-10-04] MEDS: psyllium seed 3.4 gm packet PO SCH (19:47)
[2022-10-04 20:00] VITALS: BP 120/60
--- NOTE | 2022-10-05 02:01 | NUR ---
Nursing Progress Note: Problem: Per 5150 pt. is here for SA by OD on street drugs after command hallucinations telling him to do so. Pt. states that he took "Fentanyl, black china, meth, 8 ball" in suicide attempt. Pt. states he feels hopeless. Pt. is also delusional, stating, "they won't give me my billion dollars". Pt. states, "I tried killing myself because Im a free michelle. They dont love me but I love them. Yes I do." Interventions: 1:1 assessment, therapeutic conversation, active listening, ensured contract for safety, medication administration/education/monitoring, behavior monitoring and intervention as needed; reality orientation,Q15 minute safety checks. Response: Patient in bed sleeping at shift change. Patient self isolated and gave minimal responses to questions for 1:1. Patient reports that he had an alright day. Patient went back to sleep after minimal assessment. Patient took evening meds w/o complications. Patient went back to sleep after med pass. Plan: Pt is conserved and awaiting placement.
[2022-10-05 07:00] VITALS: BP 117/61
[2022-10-05] MEDS: buprenorphine/naloxone 2-0.5mg sublingual tablet SL SCH ×2 (07:20→15:10)
[2022-10-05] MEDS: LORazepam 1 MG tablet PO SCH ×4 (07:20→20:00)
[2022-10-05] MEDS: sertraline 50mg tablet PO SCH (07:20)
[2022-10-05] MEDS: sulfamethoxazole/trimethoprim DS (800/160mg) tablet PO SCH ×2 (07:20→20:01)
[2022-10-05] MEDS: nicotine 14mg patch - 24hr TD SCH (07:20)
[2022-10-05] MEDS: haloperidol 5mg tablet PO SCH ×4 (07:20→20:00)
[2022-10-05] MEDS: lactobacillus rhamnosus 10,000 MMU CELLS/CAPSULE PO SCH (07:20)
[2022-10-05] MEDS: QUEtiapine 25mg tablet PO SCH ×3 (07:21→20:01)
[2022-10-05] MEDS: divalproex 250mg tablet, delayed-release PO SCH ×2 (07:21→20:01)
[2022-10-05] MEDS: benztropine 1mg tablet PO SCH ×2 (07:21→20:01)
[2022-10-05] MEDS: multivitamins, therapeutics tablet PO SCH (07:21)
[2022-10-05] MEDS: docusate sod 100mg capsule PO SCH ×2 (07:21→20:02)
[2022-10-05] MEDS: NICOTINE POLACRILEX 2 MG LOZENGE BC PRN (08:50)
[2022-10-05] MEDS: benzocaine (Anbesol) 12ml bottle MM PRN ×2 (08:50→18:56)
[2022-10-05] MEDS: acetaminophen 325mg tablet PO PRN ×3 (08:50→20:02)
--- NOTE | 2022-10-05 17:56 | NUR ---
Nursing Progress Note: Problem: Per 5150 pt. is here for SA by OD on street drugs after command hallucinations telling him to do so. Pt. states that he took "Fentanyl, black china, meth, 8 ball" in suicide attempt. Pt. states he feels hopeless. Pt. is also delusional, stating, "they won't give me my billion dollars". Pt. states, "I tried killing myself because Im a free michelle. They dont love me but I love them. Yes I do." Interventions: 1:1 assessment, therapeutic conversation, active listening, ensured contract for safety, medication administration/education/monitoring, behavior monitoring and intervention as needed; reality orientation, distraction, redirection, limit setting, elopement prevention, show of support, positive reinforcement, and Q15 minute safety checks. Response: Patient awakened at approximately 07:00 and requested his medications. Medications were taken as directed. Patient complaining of teeth pain, patient was given Naprosyn, Tylenol, Suboxone, and Anbesol. Patient reports that he is in a good mood today. Later in the morning patient had GI upset and was given Maalox. Patient reports that he threw up his lunch today. Patient stayed in his room for the afternoon because he stated he was not feeling well. Plan: Pt is conserved and awaiting placement.
[2022-10-05] MEDS: quetiapine 100mg tablet PO SCH (20:02)
[2022-10-05] MEDS: psyllium seed 3.4 gm packet PO SCH (20:03)
[2022-10-05 20:30] VITALS: BP 93/63
--- NOTE | 2022-10-05 23:58 | NUR ---
Nursing Progress Note: Problem: Per 5150 pt. is here for SA by OD on street drugs after command hallucinations telling him to do so. Pt. states that he took "Fentanyl, black china, meth, 8 ball" in suicide attempt. Pt. states he feels hopeless. Pt. is also delusional, stating, "they won't give me my billion dollars". Pt. states, "I tried killing myself because Im a free michelle. They dont love me but I love them. Yes I do." Interventions: 1:1 assessment, therapeutic conversation, active listening, ensured contract for safety, medication administration/education/monitoring, behavior monitoring and intervention as needed; reality orientation,Q15 minute safety checks. Response:Patient in room laying on bed at shift change.Patient refused dinner tray. Patient appeared not to be feeling well to which the patient replied that his tooth hurt. The patient was given PRN Anbesol, Tylenol 650mg. Patient cheek is slightly swollen with redness on inner cheek near tooth. Patient isolated to room for entire shift. Patient ate a peanut butter and jelly sandwich. Patient took evening meds w/o complications and went to sleep after med pass. Plan: Pt is conserved and awaiting placement.
[2022-10-06 07:50] VITALS: BP 90/50
[2022-10-06] MEDS: docusate sod 100mg capsule PO SCH ×2 (08:32→21:17)
[2022-10-06] MEDS: LORazepam 1 MG tablet PO SCH ×4 (08:32→21:18)
[2022-10-06] MEDS: divalproex 250mg tablet, delayed-release PO SCH ×2 (08:32→21:17)
[2022-10-06] MEDS: sertraline 50mg tablet PO SCH (08:32)
[2022-10-06] MEDS: nicotine 14mg patch - 24hr TD SCH (08:32)
[2022-10-06] MEDS: benztropine 1mg tablet PO SCH ×2 (08:33→21:17)
[2022-10-06] MEDS: haloperidol 5mg tablet PO SCH ×4 (08:33→21:17)
[2022-10-06] MEDS: multivitamins, therapeutics tablet PO SCH (08:33)
[2022-10-06] MEDS: lactobacillus rhamnosus 10,000 MMU CELLS/CAPSULE PO SCH (08:33)
[2022-10-06] MEDS: QUEtiapine 25mg tablet PO SCH ×3 (08:33→21:18)
[2022-10-06] MEDS: sulfamethoxazole/trimethoprim DS (800/160mg) tablet PO SCH ×2 (08:33→21:18)
[2022-10-06] MEDS: buprenorphine/naloxone 2-0.5mg sublingual tablet SL SCH ×2 (08:34→15:00)
[2022-10-06] MEDS: LORazepam 1 MG tablet PO PRN (09:09)
[2022-10-06] MEDS: benzocaine (Anbesol) 12ml bottle MM PRN ×3 (09:14→16:07)
[2022-10-06] MEDS: NICOTINE POLACRILEX 2 MG LOZENGE BC PRN (11:19)
[2022-10-06] MEDS: acetaminophen 325mg tablet PO PRN ×2 (11:51→21:18)
[2022-10-06 13:00] VITALS: BP 119/78
[2022-10-06] MEDS ORDERED: propranolol 10mg tablet PO ONE (13:00)
--- NOTE | 2022-10-06 16:54 | NUR ---
Nursing Progress Note Problem: Per 5150 pt. is here for SA by OD on street drugs after command hallucinations telling him to do so. Pt. states that he took "Fentanyl, black china, meth, 8 ball" in suicide attempt. Pt. states he feels hopeless. Pt. is also delusional, stating, "They won't give me my billion dollars". Pt. states, "I tried killing myself because Im a free michelle. They dont love me but I love them. Yes I do." Interventions: Provide medication administration & medication management; Maintained a safe & supportive environment; Clear & simple instructions; Direction & encouragement regarding performance of ADLs; monitored behaviors & maintained clear boundaries; Patient physical assessment & 1:1 patient interview; Therapeutic conversation & active listening; Patient education & monitoring. Response: Received patient this morning at 0750 who initially refused breakfast then received Anbesol and allowed it to work then ate his breakfast. Patient is pleasant and ambulating throughout the Unit and took his medications at 0830. Patient requested Juice and he was given juice and then kept ambulating. After receiving his medications, patient informed this Substation Maintenance Technician I feel a whole lot of anxiety right now. Patient given Ativan 2mg po at 0910 and he went to lay down in his room. Patient slept until 1100 and participated in snack time. Patient ate his lunch in the Community Room and then ambulated in the hallways. Patient came to this Substation Maintenance Technician at approximately 1300 and reported I feel my heart beating hard inside my chest. Vital signs were taken and patient his DN=382. CN=141/78 and P.O. was 99%. Looking back at patients vital signs over the past few days, patients heart rate was 68-72. Spoke with DANIEL Stallworth, and received a one-time order for Propranolol 20 mg po now. Patient was administered the Propranolol at 1304 and laid down on his bed. Patient got up at 1500 and participated in snack time. Patients heart rate was 72 when he got back up out of bed at 1500. Patient took his scheduled medications the rest of the day and received Anbesol for his tooth pain at 1606. Plan: Pt is conserved and awaiting placement.
[2022-10-06 19:00] VITALS: BP 108/64
[2022-10-06] MEDS: psyllium seed 3.4 gm packet PO SCH (21:17)
[2022-10-06] MEDS: quetiapine 100mg tablet PO SCH (21:17)
--- NOTE | 2022-10-07 05:41 | NUR ---
Nursing Progress Note Problem: Per 5150 pt. is here for SA by OD on street drugs after command hallucinations telling him to do so. Pt. states that he took "Fentanyl, black china, meth, 8 ball" in suicide attempt. Pt. states he feels hopeless. Pt. is also delusional, stating, "They won't give me my billion dollars". Pt. states, "I tried killing myself because Im a free michelle. They dont love me but I love them. Yes I do." Interventions: Provide medication administration & medication management; Maintained a safe & supportive environment; Clear & simple instructions; Direction & encouragement regarding performance of ADLs; monitored behaviors & maintained clear boundaries; Patient physical assessment & 1:1 patient interview; Therapeutic conversation & active listening; Patient education & monitoring. Response: Patient appears depressed and fatigued. He's pleasant and cooperative with care; compliant with medication. PRN Tylenol provided and patient claimed to have removed Nicotine patch. Patient remained in bed throughout the shift; refused HS snack. Observed sleeping with no apparent difficulties. Plan: Pt is conserved and awaiting placement.
[2022-10-07] MEDS: LORazepam 1 MG tablet PO SCH ×4 (07:37→20:37)
[2022-10-07] MEDS: lactobacillus rhamnosus 10,000 MMU CELLS/CAPSULE PO SCH (07:37)
[2022-10-07] MEDS: haloperidol 5mg tablet PO SCH ×4 (07:37→20:37)
[2022-10-07] MEDS: benztropine 1mg tablet PO SCH ×2 (07:37→20:37)
[2022-10-07] MEDS: divalproex 250mg tablet, delayed-release PO SCH ×2 (07:37→20:37)
[2022-10-07] MEDS: docusate sod 100mg capsule PO SCH ×2 (07:38→20:37)
[2022-10-07] MEDS: QUEtiapine 25mg tablet PO SCH ×3 (07:38→20:40)
[2022-10-07] MEDS: sertraline 50mg tablet PO SCH (07:38)
[2022-10-07] MEDS: buprenorphine/naloxone 2-0.5mg sublingual tablet SL SCH ×2 (07:38→15:14)
[2022-10-07] MEDS: nicotine 14mg patch - 24hr TD SCH (07:38)
[2022-10-07] MEDS: multivitamins, therapeutics tablet PO SCH (07:38)
[2022-10-07 07:43] VITALS: BP 122/72
[2022-10-07] MEDS: benzocaine (Anbesol) 12ml bottle MM PRN ×2 (07:45→15:52)
[2022-10-07] MEDS: acetaminophen 325mg tablet PO PRN ×2 (10:36→17:49)
--- NOTE | 2022-10-07 16:22 | NUR ---
1:1 with client PRIYA Levine called, stating client wished to speak to this marketing copywriter. This marketing copywriter met with client. Client's certified social workers in health care is Wandy MALDONADO. Client asked if this marketing copywriter has spoken to his conservator, Sri, in [facility]. This marketing copywriter confirmed to client his certified social workers in health care is Hilary, Hilary is the single point of contact for client, and Hilary has been reaching out consistently to [facility] as part of client's TCON and placement processes. This marketing copywriter normalized client's feelings. Client said thank you for this information. Client looked, to this marketing copywriter, like he is not feeling well physically (pallor, body language), and this marketing copywriter report this to PRIYA Levine.
--- NOTE | 2022-10-07 17:02 | NUR ---
Nursing Progress Note Problem: Per 5150 pt. is here for SA by OD on street drugs after command hallucinations telling him to do so. Pt. states that he took "Fentanyl, black china, meth, 8 ball" in suicide attempt. Pt. states he feels hopeless. Pt. is also delusional, stating, "They won't give me my billion dollars". Pt. states, "I tried killing myself because Im a free michelle. They dont love me but I love them. Yes I do." Interventions: Provide medication administration & medication management; Maintained a safe & supportive environment; Clear & simple instructions; Direction & encouragement regarding performance of ADLs; monitored behaviors & maintained clear boundaries; Patient physical assessment & 1:1 patient interview; Therapeutic conversation & active listening; Patient education & monitoring. Response: Received patient who was awake at 0715 and states I slept well last night. Patient denies SI/AV/VH at this time. Patient appears linear in conversation and has a calm demeanor. Patient ate breakfast in the Community Room and then ambulated around the unit. Patient is experiencing upper right tooth pain and lower right tooth pain. Anbesol was used with a cotton applicator on the problem teeth and provided him some relief. Patient also received Tylenol at 1035 for pain rated at a 5 on a scale of 1-10, and received relief. Patient laid down for approximately 1 hour this morning and again this afternoon from 1315 to 1515. Patient was resting comfortably. Patient took his medications without hesitation. Plan: Pt is conserved and awaiting placement.
[2022-10-07 19:53] VITALS: BP 94/51
[2022-10-07] MEDS: psyllium seed 3.4 gm packet PO SCH (20:36)
[2022-10-07] MEDS: quetiapine 100mg tablet PO SCH (20:37)
--- NOTE | 2022-10-08 05:41 | NUR ---
Nursing Progress Note Problem: Per 5150 pt. is here for SA by OD on street drugs after command hallucinations telling him to do so. Pt. states that he took "Fentanyl, black china, meth, 8 ball" in suicide attempt. Pt. states he feels hopeless. Pt. is also delusional, stating, "They won't give me my billion dollars". Pt. states, "I tried killing myself because Im a free michelle. They dont love me but I love them. Yes I do." Interventions: Provide medication administration & medication management; Maintained a safe & supportive environment; Clear & simple instructions; Direction & encouragement regarding performance of ADLs; monitored behaviors & maintained clear boundaries; Patient physical assessment & 1:1 patient interview; Therapeutic conversation & active listening; Patient education & monitoring. Response: Patient remains self isolative and appears fatigued; cooperative with care and compliant with medication. No SI, HI, A/VH reported and no apparent delusions expressed. Patient did not leave his room this shift and denied HS snack; observed sleeping and does not appear to be having difficulty. Patient reported that he removed Nicotine patch and threw it away prior to HS med pass. Plan: Pt is conserved and awaiting placement.
[2022-10-08 07:00] VITALS: BP 84/42
[2022-10-08] MEDS: benztropine 1mg tablet PO SCH ×2 (08:52→20:44)
[2022-10-08] MEDS: nicotine 14mg patch - 24hr TD SCH (08:52)
[2022-10-08] MEDS: docusate sod 100mg capsule PO SCH ×2 (08:52→20:44)
[2022-10-08] MEDS: acetaminophen 325mg tablet PO PRN ×4 (08:53→18:19)
[2022-10-08] MEDS: LORazepam 1 MG tablet PO SCH ×4 (08:54→20:43)
[2022-10-08] MEDS: divalproex 250mg tablet, delayed-release PO SCH ×2 (08:54→20:43)
[2022-10-08] MEDS: sertraline 50mg tablet PO SCH (08:54)
[2022-10-08] MEDS: QUEtiapine 25mg tablet PO SCH ×3 (08:54→20:44)
[2022-10-08] MEDS: lactobacillus rhamnosus 10,000 MMU CELLS/CAPSULE PO SCH (08:54)
[2022-10-08] MEDS: buprenorphine/naloxone 2-0.5mg sublingual tablet SL SCH ×2 (08:54→14:56)
[2022-10-08] MEDS: multivitamins, therapeutics tablet PO SCH (08:55)
[2022-10-08] MEDS: haloperidol 5mg tablet PO SCH ×4 (08:55→20:44)
[2022-10-08] MEDS: NICOTINE POLACRILEX 2 MG LOZENGE BC PRN (09:34)
[2022-10-08] MEDS: benzocaine (Anbesol) 12ml bottle MM PRN (13:45)
--- NOTE | 2022-10-08 14:39 | NUR ---
Reassessment: PO intake fluctuates however overall appears to have declined since last RD assessment (10/01). Pt documented with average 64% PO intake of 14 meals since 10/02 though given refusal of 5 meals average PO intake is down to 47% not meeting estimated nutrient needs. Noted some discrepancy as pt documented with 0-25% of some meals that back roll lathe operator states pt ate. Per back roll lathe operator patient's acceptance to snacks fluctuates. Noted pt with c/o tooth pain and feeling ill, likely impacting appetite and PO intake. Pt is receiving double eggs and smoothies with meals. IF PO intake does not improve pt would benefit from ONS to assist with meeting estimated nutrient needs. LBM 10/07. Will continue to follow. Recommendations: 1) Continue Vegetarian diet per pt request; double eggs WB; smoothies TIDWM; encourage PO intake; monitor need for ONS 2) MVI supplementation per MD 3) Bowel care PRN 4) Weekly scaled weights Addendum: 10/08/22 at [address] Amended: Links added.
[2022-10-08] MEDS: LORazepam 1 MG tablet PO PRN (15:41)
--- NOTE | 2022-10-08 17:27 | NUR ---
Nursing Progress Note Problem: Per 5150 pt. is here for SA by OD on street drugs after command hallucinations telling him to do so. Pt. states that he took "Fentanyl, black china, meth, 8 ball" in suicide attempt. Pt. states he feels hopeless. Pt. is also delusional, stating, "They won't give me my billion dollars". Pt. states, "I tried killing myself because Im a free michelle. They dont love me but I love them. Yes I do." Interventions: Provide medication administration & medication management; Maintained a safe & supportive environment; Clear & simple instructions; Direction & encouragement regarding performance of ADLs; monitored behaviors & maintained clear boundaries; Patient physical assessment & 1:1 patient interview; Therapeutic conversation & active listening; Patient education & monitoring. Response: Patient sleeping at change of shift. Patient awakens late, and his breakfast tray was already sent back. Patient is medication compliant. Patient in the morning reports that he is happy and walks the hallways with a peer and listens to headphones. At midday, patient became tearful stating that he was going to hurt when his mom passes away, attempted to cheer patient up. Patient complains of 10/10 teeth pain, Anbesol, Tylenol, Suboxone, Naprosyn given for pain, with varying degrees of relief. Patient is calm and cooperative with treatment. Plan: Pt is conserved and awaiting placement.
[2022-10-08 19:00] VITALS: BP 98/50
[2022-10-08] MEDS: psyllium seed 3.4 gm packet PO SCH (20:43)
[2022-10-08] MEDS: quetiapine 100mg tablet PO SCH (20:44)
--- NOTE | 2022-10-09 03:23 | NUR ---
Nursing Progress Note Problem: Per 5150 pt. is here for SA by OD on street drugs after command hallucinations telling him to do so. Pt. states that he took "Fentanyl, black china, meth, 8 ball" in suicide attempt. Pt. states he feels hopeless. Pt. is also delusional, stating, "They won't give me my billion dollars". Pt. states, "I tried killing myself because Im a free michelle. They dont love me but I love them. Yes I do." Interventions: Provide medication administration & medication management; Maintained a safe & supportive environment; Clear & simple instructions; Direction & encouragement regarding performance of ADLs; monitored behaviors & maintained clear boundaries; Patient physical assessment & 1:1 patient interview; Therapeutic conversation & active listening; Patient education & monitoring. Response: Patient is pleasant and cooperative but continues to appear fatigued and depressed; compliant with medication. Reported he removed his Nicotine patch. No negative behaviors presented. He remained isolated to his room and refused HS snack; patient is observed sleeping and does not appear to be having difficulty. Plan: Pt is conserved and awaiting placement.
[2022-10-09] MEDS: divalproex 250mg tablet, delayed-release PO SCH ×2 (07:35→21:47)
[2022-10-09] MEDS: nicotine 14mg patch - 24hr TD SCH (07:35)
[2022-10-09] MEDS: benztropine 1mg tablet PO SCH ×2 (07:36→21:47)
[2022-10-09] MEDS: QUEtiapine 25mg tablet PO SCH ×3 (07:36→21:48)
[2022-10-09] MEDS: lactobacillus rhamnosus 10,000 MMU CELLS/CAPSULE PO SCH (07:37)
[2022-10-09] MEDS: LORazepam 1 MG tablet PO SCH ×4 (07:37→21:48)
[2022-10-09] MEDS: multivitamins, therapeutics tablet PO SCH (07:37)
[2022-10-09] MEDS: acetaminophen 325mg tablet PO PRN ×3 (07:37→17:42)
[2022-10-09] MEDS: docusate sod 100mg capsule PO SCH ×2 (07:38→21:46)
[2022-10-09] MEDS: buprenorphine/naloxone 2-0.5mg sublingual tablet SL SCH ×2 (07:38→15:02)
[2022-10-09] MEDS: haloperidol 5mg tablet PO SCH ×4 (07:38→21:48)
[2022-10-09] MEDS: sertraline 50mg tablet PO SCH (07:38)
[2022-10-09 08:16] VITALS: BP 98/56
--- NOTE | 2022-10-09 15:32 | NUR ---
Sent updated notes to [facility] (10/02-10/08). JOEL Casanova
[2022-10-09] MEDS: LORazepam 1 MG tablet PO PRN (17:41)
--- NOTE | 2022-10-09 17:45 | NUR ---
Nursing Progress Note Problem: Per 5150 pt. is here for SA by OD on street drugs after command hallucinations telling him to do so. Pt. states that he took "Fentanyl, black china, meth, 8 ball" in suicide attempt. Pt. states he feels hopeless. Pt. is also delusional, stating, "They won't give me my billion dollars". Pt. states, "I tried killing myself because Im a free michelle. They dont love me but I love them. Yes I do." Interventions: Provide medication administration & medication management; Maintained a safe & supportive environment; Clear & simple instructions; Direction & encouragement regarding performance of ADLs; monitored behaviors & maintained clear boundaries; Patient physical assessment & 1:1 patient interview; Therapeutic conversation & active listening; Patient education & monitoring. Response: Patient awakens at 07:15 and requests his medications which were administered. Soft diet ordered and it was easier for him to eat his food. Patient complains that the ice shake that he gets, he cannot drink because it makes his teeth hurt more. Patient is calm and cooperative today. He is pacing hallways either by himself or with another peer. Patient attempted to call his conservator Sri, because she has not brought him clothing. Patient checks in frequently with RN. In the afternoon, patient stated that he felt depressed, at not being able to be placed. Patient complains of 7/10 teeth pain, Anbesol, Tylenol, Suboxone, Naprosyn given for pain, with varying degrees of relief. Plan: Pt is conserved and awaiting placement.
[2022-10-09 19:00] VITALS: BP 96/44
[2022-10-09] MEDS: psyllium seed 3.4 gm packet PO SCH (21:45)
[2022-10-09] MEDS: quetiapine 100mg tablet PO SCH (21:47)
--- NOTE | 2022-10-10 01:13 | NUR ---
Nursing Progress Note Problem: Per 5150 pt. is here for SA by OD on street drugs after command hallucinations telling him to do so. Pt. states that he took "Fentanyl, black china, meth, 8 ball" in suicide attempt. Pt. states he feels hopeless. Pt. is also delusional, stating, "They won't give me my billion dollars". Pt. states, "I tried killing myself because Im a free michelle. They dont love me but I love them. Yes I do." Interventions: Provide medication administration & medication management; Maintained a safe & supportive environment; Clear & simple instructions; Direction & encouragement regarding performance of ADLs; monitored behaviors & maintained clear boundaries; Patient physical assessment & 1:1 patient interview; Therapeutic conversation & active listening; Patient education & monitoring. Response: Patient sleeping at change of shift. When awaken for bedtime medications pt. was pleasant and cooperative. Compliant with medications. He asked what time it was. Isolated to room. Denies SI,HI, AH, VH. Patient went back to bed after taking medications. Observed sleeping with no difficulty. Plan: Pt is conserved and awaiting placement.
[2022-10-10] MEDS: divalproex 250mg tablet, delayed-release PO SCH ×2 (07:50→20:48)
[2022-10-10] MEDS: docusate sod 100mg capsule PO SCH ×2 (07:50→20:49)
[2022-10-10] MEDS: QUEtiapine 25mg tablet PO SCH ×3 (07:50→20:47)
[2022-10-10] MEDS: sertraline 50mg tablet PO SCH (07:51)
[2022-10-10] MEDS: multivitamins, therapeutics tablet PO SCH (07:51)
[2022-10-10] MEDS: lactobacillus rhamnosus 10,000 MMU CELLS/CAPSULE PO SCH (07:51)
[2022-10-10] MEDS: benztropine 1mg tablet PO SCH ×2 (07:51→20:47)
[2022-10-10] MEDS: haloperidol 5mg tablet PO SCH ×4 (07:51→20:48)
[2022-10-10] MEDS: LORazepam 1 MG tablet PO SCH ×4 (07:52→20:48)
[2022-10-10] MEDS: nicotine 14mg patch - 24hr TD SCH (07:52)
[2022-10-10] MEDS: buprenorphine/naloxone 2-0.5mg sublingual tablet SL SCH ×2 (07:54→15:16)
[2022-10-10 08:00] VITALS: BP 102/66
[2022-10-10] MEDS: benzocaine (Anbesol) 12ml bottle MM PRN ×3 (09:08→21:03)
[2022-10-10] MEDS: acetaminophen 325mg tablet PO PRN (12:19)
[2022-10-10 12:50] LABS: BASOPHILS # (AUTO) 0.1 X10'3 (0-0.2); BASOPHILS % (AUTO) 1.2 % (0-1); EOSINOPHILS # (AUTO) 0.5 X10'3 (0-0.9); EOSINOPHILS % (AUTO) 9.9 % (0-6); HEMATOCRIT 35.7 % (42.0-52.0); HEMOGLOBIN 12.3 g/dl (14.0-17.9); LYMPHOCYTES # (AUTO) 1.3 X10'3 (1.1-4.8); LYMPHOCYTES % (AUTO) 27.4 % (21-51); MEAN CORPUSCULAR HEMOGLOBIN 31.4 PG (27.0-31.0); MEAN CORPUSCULAR HGB CONC 34.4 g/dL (33.0-36.5); MEAN CORPUSCULAR VOLUME 91.3 FL (78-98); MEAN PLATELET VOLUME 7.4 FL (7.4-10.4); MONOCYTES # (AUTO) 0.3 X10'3 (0-0.9); MONOCYTES % (AUTO) 6.8 % (2-12); NEUTROPHILS # (AUTO) 2.7 X10'3 (1.8-7.7); NEUTROPHILS % (AUTO) 54.7 % (42-75); PLATELET COUNT 191 X10'3 (140-440); RED BLOOD COUNT 3.91 X10'6 (4.70-6.10); RED CELL DISTRIBUTION WIDTH 13.2 % (11.5-14.5); WHITE BLOOD COUNT 4.9 X10'3 (4.5-11.0)
[2022-10-10 13:05] LABS: ALANINE AMINOTRANSFERASE 19 U/L (12-78); ALBUMIN 3.9 G/DL (3.4-5.0); ALBUMIN/GLOBULIN RATIO 1.4 (1.1-1.5); ALKALINE PHOSPHATASE 76 IU/L (46-116); ANION GAP 3 (8-16); ASPARTATE AMINO TRANSFERASE 18 U/L (10-37); BILIRUBIN,TOTAL 0.5 MG/DL (0.1-1.0); BLOOD UREA NITROGEN 10 MG/DL (7-18); BUN/CREATININE RATIO 12.7 (5.4-32.0); CALCIUM 8.6 MG/DL (8.5-10.1); CHLORIDE 98 MMOL/L (99-107); CREATININE 0.79 MG/DL (0.60-1.10); GLUCOSE 91 MG/DL (70-104); POTASSIUM 4.4 MMOL/L (3.5-5.1); SODIUM 132 MMOL/L (135-145); TOTAL CARBON DIOXIDE 30.9 MMOL/L (24-32); TOTAL PROTEIN 6.6 G/DL (6.4-8.2); eGFR > 90 ML/MIN
[2022-10-10] MEDS: NICOTINE POLACRILEX 2 MG LOZENGE BC PRN (15:57)
--- NOTE | 2022-10-10 16:54 | NUR ---
Nursing Progress Note: [place] Problem: Patient is 5150 status. Per admit note "You jumped off the [place] with the intention of killing yourself". During interview pt. endorses SI without a plan, as well as auditory hallucinations, states he hears random words like, "Chance". Pt. reports he had been living at [facility] for 4 months before he relapsed 2 days ago, drinking whiskey until he blacked out and snorting meth. Pt. reports he is now homeless. Interventions: Medication administration, 1:1 MH assessment, maintained a safe and supportive environment, provided clear and simple instructions, provided encouragement regarding performance of ADLs, monitored behaviors and maintained clear boundaries, maintained Q15 minute safety checks. Response: Pt. received asleep, awoke for his medications, and was taken without hesitation. He denies SI, HI, AH, VH, and reports he was going to attend group today. Pt. spent most of the shift walking the halls and rapping with a male cohort. He c/o dental pain X2 this shift and was given Ambesol; med was effective. This publicity writer to f/u with SW regarding any f/u dental appointments. He is currently on a reward system for good behavior and continues to participate. He ate all meals in the main dining room with cohorts, without issues. He requires constant feedback and validation about his behavior, and reports Im working hard to do good He perseverates about tenriism and his clothing. Pt. has a flat affect and presents as down casted. He has fair hygiene, short hair, and wears street clothes. Pt. reported scant bleeding with BMs; provider at the bedside, N.O CBC Plan: Pt requires stabilization with medication adjustment and management in a safe and therapeutic environment.
[2022-10-10 19:46] VITALS: BP 95/50
[2022-10-10] MEDS: psyllium seed 3.4 gm packet PO SCH (20:46)
[2022-10-10] MEDS: quetiapine 100mg tablet PO SCH (20:47)
--- NOTE | 2022-10-11 01:19 | NUR ---
Nursing Progress Note Problem: Per 5150 pt. is here for SA by OD on street drugs after command hallucinations telling him to do so. Pt. states that he took "Fentanyl, black china, meth, 8 ball" in suicide attempt. Pt. states he feels hopeless. Pt. is also delusional, stating, "They won't give me my billion dollars". Pt. states, "I tried killing myself because Im a free michelle. They dont love me but I love them. Yes I do." Interventions: Provide medication administration & medication management; Maintained a safe & supportive environment; Clear & simple instructions; Direction & encouragement regarding performance of ADLs; monitored behaviors & maintained clear boundaries; Patient physical assessment & 1:1 patient interview; Therapeutic conversation & active listening; Patient education & monitoring. Response: Received patient asleep in room at change of shift where he stayed all night. Did not participate in snack. Compliant with medications. PRN Anbesol provided. Patient reported removing nicotine patch. Patient denies SI,HI,AH,VH and depression. However, patient appears depressed to this law writer. Very little talk when trying to engage in conversation with patient. Appears to be sleeping without difficulty. Plan: Pt is conserved and awaiting placement.
[2022-10-11] MEDS: nicotine 14mg patch - 24hr TD SCH (07:33)
[2022-10-11] MEDS: multivitamins, therapeutics tablet PO SCH (07:34)
[2022-10-11] MEDS: sertraline 50mg tablet PO SCH (07:34)
[2022-10-11] MEDS: haloperidol 5mg tablet PO SCH ×4 (07:34→20:52)
[2022-10-11] MEDS: QUEtiapine 25mg tablet PO SCH ×3 (07:34→20:54)
[2022-10-11] MEDS: LORazepam 1 MG tablet PO SCH ×4 (07:34→20:56)
[2022-10-11] MEDS: lactobacillus rhamnosus 10,000 MMU CELLS/CAPSULE PO SCH (07:35)
[2022-10-11] MEDS: docusate sod 100mg capsule PO SCH ×2 (07:35→20:52)
[2022-10-11] MEDS: divalproex 250mg tablet, delayed-release PO SCH ×2 (07:35→20:53)
[2022-10-11] MEDS: benztropine 1mg tablet PO SCH ×2 (07:35→20:53)
[2022-10-11] MEDS: buprenorphine/naloxone 2-0.5mg sublingual tablet SL SCH ×2 (07:35→15:02)
[2022-10-11 08:00] VITALS: BP 91/67
[2022-10-11] MEDS: acetaminophen 325mg tablet PO PRN (11:34)
[2022-10-11] MEDS: NICOTINE POLACRILEX 2 MG LOZENGE BC PRN (15:03)
--- NOTE | 2022-10-11 15:44 | NUR ---
Nursing Progress Note: Problem: Patient is 5150 status. Per admit note "You [place] with the intention of killing yourself". During interview pt. endorses SI without a plan, as well as auditory hallucinations, states he hears random words like, "Chance". Pt. reports he had been living at [facility] for 4 months before he relapsed 2 days ago, drinking whiskey until he blacked out and snorting meth. Pt. reports he is now homeless. Interventions: Medication administration, 1:1 MH assessment, maintained a safe and supportive environment, provided clear and simple instructions, provided encouragement regarding performance of ADLs, monitored behaviors and maintained clear boundaries, maintained Q15 minute safety checks. Response: Received Pt in bed sleeping w/o distress at the beginning of the shift. Pt woke and was cooperative with vitals and went to sleep again. Pt woke for breakfast and ate well. He took meds throughout the day w/o issue and used nicotine Lozenges and Anbesol PRN. Pt talkative and spoke positively about getting out of [facility] and having more freedoms to get his son a gift. Pt had full range of affect and was labile at times, but responded well to attention and positive reinforcement. There were no groups today and he did not go to [facility] because his tooth was hurting. Plan: Pt requires stabilization with medication adjustment and management in a safe and therapeutic environment. Addendum: 10/11/22 at 2211 by Blair Costello RN Discard note above: Nursing Progress Note Problem: Per 5150 pt. is here for SA by OD on street drugs after command hallucinations telling him to do so. Pt. states that he took "Fentanyl, black china, meth, 8 ball" in suicide attempt. Pt. states he feels hopeless. Pt. is also delusional, stating, "They won't give me my billion dollars". Pt. states, "I tried killing myself because Im a free michelle. They dont love me but I love them. Yes I do." Interventions: Provide medication administration & medication management; Maintained a safe & supportive environment; Clear & simple instructions; Direction & encouragement regarding performance of ADLs; monitored behaviors & maintained clear boundaries; Patient physical assessment & 1:1 patient interview; Therapeutic conversation & active listening; Patient education & monitoring. Response: Received Pt in bed sleeping w/o distress at the beginning of the shift. Pt woke and was cooperative with vitals and went to sleep again. Pt woke for breakfast and ate well. He took meds throughout the day w/o issue and used nicotine Lozenges and Anbesol PRN. Pt talkative and spoke positively about getting out of [facility] and having more freedoms to get his son a gift. Pt had full range of affect and was labile at times, but responded well to attention and positive reinforcement. There were no groups today and [facility] because [facility]. Plan: Pt is conserved and awaiting placement.
[2022-10-11 20:00] VITALS: BP 98/50
[2022-10-11] MEDS: quetiapine 100mg tablet PO SCH (20:55)
[2022-10-11] MEDS: psyllium seed 3.4 gm packet PO SCH (20:57)
--- NOTE | 2022-10-11 22:15 | NUR ---
Nursing Progress Note Problem: Per 5150 pt. is here for SA by OD on street drugs after command hallucinations telling him to do so. Pt. states that he took "Fentanyl, black china, meth, 8 ball" in suicide attempt. Pt. states he feels hopeless. Pt. is also delusional, stating, "They won't give me my billion dollars". Pt. states, "I tried killing myself because Im a free michelle. They dont love me but I love them. Yes I do." Interventions: Provide medication administration & medication management; Maintained a safe & supportive environment; Clear & simple instructions; Direction & encouragement regarding performance of ADLs; monitored behaviors & maintained clear boundaries; Patient physical assessment & 1:1 patient interview; Therapeutic conversation & active listening; Patient education & monitoring. Response: Received patient in community room after dinner. Pt watched TV and socialized a bit before going to lay down. Pt pleasant and cooperative, denying SI,HI,AH,VH and depression. Pt reports having a good day, except for my tooth. Pt took PM meds and fell asleep early. Pt did not ask for prn meds to sleep or for anxiety. Plan: Pt is conserved and awaiting placement.
[2022-10-12] MEDS: LORazepam 1 MG tablet PO SCH ×4 (07:50→20:09)
[2022-10-12] MEDS: benztropine 1mg tablet PO SCH ×2 (07:50→20:08)
[2022-10-12] MEDS: nicotine 14mg patch - 24hr TD SCH (07:50)
[2022-10-12] MEDS: lactobacillus rhamnosus 10,000 MMU CELLS/CAPSULE PO SCH (07:51)
[2022-10-12] MEDS: divalproex 250mg tablet, delayed-release PO SCH ×2 (07:51→20:09)
[2022-10-12] MEDS: docusate sod 100mg capsule PO SCH ×2 (07:51→20:09)
[2022-10-12] MEDS: haloperidol 5mg tablet PO SCH ×4 (07:51→20:09)
[2022-10-12] MEDS: QUEtiapine 25mg tablet PO SCH ×3 (07:51→20:08)
[2022-10-12] MEDS: sertraline 50mg tablet PO SCH (07:52)
[2022-10-12] MEDS: multivitamins, therapeutics tablet PO SCH (07:52)
[2022-10-12] MEDS: buprenorphine/naloxone 2-0.5mg sublingual tablet SL SCH ×2 (07:52→15:05)
[2022-10-12] MEDS: benzocaine (Anbesol) 12ml bottle MM PRN ×3 (07:56→17:47)
[2022-10-12 08:00] VITALS: BP 123/69
[2022-10-12] MEDS: acetaminophen 325mg tablet PO PRN ×2 (09:11→14:59)
--- NOTE | 2022-10-12 09:54 | NUR ---
F/u 10/12: Pt PO continues to have periods of fluctuate though improved ~76-100% avg recent meals w/ smoothie TID, peaches/salad/cottage cheese WL, and double eggs WB meeting ~95% kcal/~92% protein estimated needs. Now on EC7 diet given tooth issues per EMR. LBM 10/09. No further nutrition interventions at this time. Will continue to follow. Recommendations: 1) Continue Vegetarian diet per pt request; double eggs WB; smoothies TIDWM; cottage cheese/peaches/salad WL; encourage PO intake 2) MVI supplementation per MD 3) Bowel care PRN 4) Weekly scaled weights Addendum: 10/12/22 at [address] Amended: Links added.
[2022-10-12] MEDS: NICOTINE POLACRILEX 2 MG LOZENGE BC PRN (14:49)
--- NOTE | 2022-10-12 16:28 | NUR ---
Nursing Progress Note Problem: Per 5150 pt. is here for SA by OD on street drugs after command hallucinations telling him to do so. Pt. states that he took "Fentanyl, black china, meth, 8 ball" in suicide attempt. Pt. states he feels hopeless. Pt. is also delusional, stating, "They won't give me my billion dollars". Pt. states, "I tried killing myself because Im a free michelle. They dont love me but I love them. Yes I do." Interventions: Provide medication administration & medication management; Maintained a safe & supportive environment; Clear & simple instructions; Direction & encouragement regarding performance of ADLs; monitored behaviors & maintained clear boundaries; Patient physical assessment & 1:1 patient interview; Therapeutic conversation & active listening; Patient education & monitoring. Response: Patient was awake at 0630 this morning and then decided to return back to bed, but then got up again at 0715. Patient reports he is doing well, but is still experiencing upper and lower right tooth pain. Patient has requested Anbesol approximately every 3 hours on these teeth as well as Tylenol prn for pain associated with his tooth pain. Patient has become very sensitive to hots, colds, and states "I can't eat my food on my tray." Patient was ordered a protein shake for lunch and also received one on his morning tray. Will follow up with Hilary tomorrow as patient is asking when his next dental appointment is scheduled. Patient ambulated up and down the wagner throughout most of the day with the headphones on. Patient also went outside today at 1130-12:00 and enjoyed his time out. Plan: Pt is conserved and awaiting placement.
[2022-10-12] MEDS: psyllium seed 3.4 gm packet PO SCH (20:09)
[2022-10-12] MEDS: quetiapine 100mg tablet PO SCH (20:09)
[2022-10-12 20:35] VITALS: BP 113/57
--- NOTE | 2022-10-12 21:30 | NUR ---
Nursing Progress Note Problem: Per 5150 pt. is here for SA by OD on street drugs after command hallucinations telling him to do so. Pt. states that he took "Fentanyl, black china, meth, 8 ball" in suicide attempt. Pt. states he feels hopeless. Pt. is also delusional, stating, "They won't give me my billion dollars". Pt. states, "I tried killing myself because Im a free michelle. They dont love me but I love them. Yes I do." Interventions: Provide medication administration & medication management; Maintained a safe & supportive environment; Clear & simple instructions; Direction & encouragement regarding performance of ADLs; monitored behaviors & maintained clear boundaries; Patient physical assessment & 1:1 patient interview; Therapeutic conversation & active listening; Patient education & monitoring. Response: Pt was napping at change of shift. Pt denies s/i and states he wants to sleep. Pt was up to take meds and declined a snack. Pt states he is not wearing a nicotine patch. Pt went back to sleep. Plan: Pt is conserved and awaiting placement.
[2022-10-13] MEDS: QUEtiapine 25mg tablet PO SCH ×3 (07:19→20:21)
[2022-10-13] MEDS: nicotine 14mg patch - 24hr TD SCH (07:19)
[2022-10-13] MEDS: divalproex 250mg tablet, delayed-release PO SCH ×2 (07:20→20:21)
[2022-10-13] MEDS: benztropine 1mg tablet PO SCH ×2 (07:20→20:21)
[2022-10-13] MEDS: sertraline 50mg tablet PO SCH (07:20)
[2022-10-13] MEDS: buprenorphine/naloxone 2-0.5mg sublingual tablet SL SCH ×2 (07:20→15:12)
[2022-10-13] MEDS: lactobacillus rhamnosus 10,000 MMU CELLS/CAPSULE PO SCH (07:20)
[2022-10-13] MEDS: docusate sod 100mg capsule PO SCH ×2 (07:20→20:22)
[2022-10-13] MEDS: LORazepam 1 MG tablet PO SCH ×4 (07:21→20:21)
[2022-10-13] MEDS: haloperidol 5mg tablet PO SCH ×4 (07:21→20:22)
[2022-10-13] MEDS: multivitamins, therapeutics tablet PO SCH (07:21)
[2022-10-13 08:00] VITALS: BP 108/68
[2022-10-13] MEDS: NICOTINE POLACRILEX 2 MG LOZENGE BC PRN ×4 (08:24→17:12)
[2022-10-13] MEDS: benzocaine (Anbesol) 12ml bottle MM PRN ×2 (08:25→17:52)
[2022-10-13] MEDS: acetaminophen 325mg tablet PO PRN ×3 (08:39→17:52)
[2022-10-13] MEDS: LORazepam 1 MG tablet PO PRN (13:11)
--- NOTE | 2022-10-13 16:51 | NUR ---
Nursing Progress Note Problem: Per 5150 pt. is here for SA by OD on street drugs after command hallucinations telling him to do so. Pt. states that he took "Fentanyl, black china, meth, 8 ball" in suicide attempt. Pt. states he feels hopeless. Pt. is also delusional, stating, "They won't give me my billion dollars". Pt. states, "I tried killing myself because Im a free michelle. They dont love me but I love them. Yes I do." Interventions: Provide medication administration & medication management; Maintained a safe & supportive environment; Clear & simple instructions; Direction & encouragement regarding performance of ADLs; monitored behaviors & maintained clear boundaries; Patient physical assessment & 1:1 patient interview; Therapeutic conversation & active listening; Patient education & monitoring. Response: Received patient who woke up at 0630 and came out of his room and reported I slept well, but I still feel tired. Patient then started ambulating in the hallway he showered immediately and took his morning medications at 0745. Patient ate breakfast in the Community Room but only drank his protein shake then received Tylenol for c/o left upper and lower tooth pain rated at an 8 on a scale of 1-10. Patient has also been receiving Anbesol at least q3 hours for c/o tooth pain. Patient ambulated in the hallway the entire of the morning with peers and enjoyed talking with them and also wore headphones at times. Patient was happy and was dancing at times in the middle of the hallway, and reported his two goals are to weigh less than 200 lbs. and be Vegetarian. Patient smiled a BIG smile when telling this Medical Asst this information. Patient was ordered specific food for lunch that he requested and really enjoyed it and ate 100%. Spoke with Christopher Whittington RN, and requested they discuss the future referral and treatment of patients tooth pain at todays 10:00 am Treatment Meeting where AUGUSTIN Richard as well as the Physicians and PA are all present, that is becoming more painful each day, and the patient does not always get relief from Tylenol but does not want his Suboxone discontinued to take stronger pain medications. Patient is requesting that he just get a dental appointment made soon. Plan: Pt is conserved and awaiting placement.
[2022-10-13 19:38] VITALS: BP 95/54
[2022-10-13] MEDS: quetiapine 100mg tablet PO SCH (20:21)
[2022-10-13] MEDS: psyllium seed 3.4 gm packet PO SCH (20:22)
--- NOTE | 2022-10-13 20:59 | NUR ---
Nursing Progress Note Problem: Per 5150 pt. is here for SA by OD on street drugs after command hallucinations telling him to do so. Pt. states that he took "Fentanyl, black china, meth, 8 ball" in suicide attempt. Pt. states he feels hopeless. Pt. is also delusional, stating, "They won't give me my billion dollars". Pt. states, "I tried killing myself because Im a free michelle. They dont love me but I love them. Yes I do." Interventions: Provide medication administration & medication management; Maintained a safe & supportive environment; Clear & simple instructions; Direction & encouragement regarding performance of ADLs; monitored behaviors & maintained clear boundaries; Patient physical assessment & 1:1 patient interview; Therapeutic conversation & active listening; Patient education & monitoring. Response: Pt was napping in his room at change of shift. Pt reports tylenol given prior to shift was helpful. Pt reports "the hole in my tooth is getting bigger, I really need a new dental appt." Pt reports he is feeling good otherwise. Pt states he threw his nicotine patch in the garbage and isnt wearing one. Pt remained napping in his room during the evening and declined having a snack stating he is trying to lose weight. Pt took HS meds and went to sleep. Plan: Pt is conserved and awaiting placement. Addendum: 10/14/22 at 0535 by Maty Kirkland RN Pt woke up early this morning and took a shower. Pt states "I feel like I've been sleeping too much, I need to get up."
[2022-10-13] MEDS: traZODone 50mg tablet PO PRN (23:00)
[2022-10-14] MEDS: nicotine 14mg patch - 24hr TD SCH (07:06)
[2022-10-14] MEDS: QUEtiapine 25mg tablet PO SCH ×3 (07:06→20:35)
[2022-10-14] MEDS: benztropine 1mg tablet PO SCH ×2 (07:07→20:36)
[2022-10-14] MEDS: docusate sod 100mg capsule PO SCH ×2 (07:07→20:36)
[2022-10-14] MEDS: lactobacillus rhamnosus 10,000 MMU CELLS/CAPSULE PO SCH (07:07)
[2022-10-14] MEDS: LORazepam 1 MG tablet PO SCH ×4 (07:07→21:00)
[2022-10-14] MEDS: divalproex 250mg tablet, delayed-release PO SCH ×2 (07:07→20:36)
[2022-10-14] MEDS: sertraline 50mg tablet PO SCH (07:07)
[2022-10-14] MEDS: haloperidol 5mg tablet PO SCH ×4 (07:07→20:35)
[2022-10-14] MEDS: buprenorphine/naloxone 2-0.5mg sublingual tablet SL SCH ×2 (07:08→15:15)
[2022-10-14] MEDS: multivitamins, therapeutics tablet PO SCH (07:08)
[2022-10-14] MEDS: acetaminophen 325mg tablet PO PRN ×2 (07:09→12:58)
[2022-10-14] MEDS: NICOTINE POLACRILEX 2 MG LOZENGE BC PRN ×3 (07:32→15:15)
[2022-10-14 08:00] VITALS: BP 127/78
[2022-10-14] MEDS: benzocaine (Anbesol) 12ml bottle MM PRN ×2 (08:00→12:58)
[2022-10-14] MEDS: LORazepam 1 MG tablet PO PRN (11:05)
--- NOTE | 2022-10-14 11:31 | NUR ---
F/u 10/14: Pt requesting Ensures does not like smoothies since too cold. Per RN, pt true PO intake not consistent w/ documented ~78% avg vegetarian diet much less recently. RD d/w RN noted pt focusing on wt loss per notes in EMR; per RN importance of nutrition intake has been reviewed w/ pt today and pt encouraged to focus on optimal meals intake. RD d/w RN recommends IF Ensure once daily and consider liberalizing to regular diet to assist kcal intake if pt/MD agreeable; previously put on vegetarian diet per pt request. Recommendations: 1) Continue Vegetarian diet per pt request; double eggs WB; cottage cheese/peaches/salad WL; encourage PO intake. Liberalize to regular diet if pt agreeable to assist meeting needs 2) IF ONS; Ensure Plus High Protein once daily 3) MVI supplementation per MD 4) Bowel care PRN 5) Weekly scaled weights Addendum: 10/14/22 at [address] Amended: Links added.
--- NOTE | 2022-10-14 13:15 | NUR ---
Mailed $500 [place] check to Public Guardian at her request to deposit it into his account. Sent it via certified mail. [facility] Public Guardian Attn: Magaly Brown [address] [place] [address] JOEL Casanova
--- NOTE | 2022-10-14 17:06 | NUR ---
Nursing Progress Note Problem: Per 5150 pt. is here for SA by OD on street drugs after command hallucinations telling him to do so. Pt. states that he took "Fentanyl, black china, meth, 8 ball" in suicide attempt. Pt. states he feels hopeless. Pt. is also delusional, stating, "They won't give me my billion dollars". Pt. states, "I tried killing myself because Im a free michelle. They dont love me but I love them. Yes I do." Interventions: Provide medication administration & medication management; Maintained a safe & supportive environment; Clear & simple instructions; Direction & encouragement regarding performance of ADLs; monitored behaviors & maintained clear boundaries; Patient physical assessment & 1:1 patient interview; Therapeutic conversation & active listening; Patient education & monitoring. Response: Received patient at 0620 when he was awake early and he reported Telma already taken a shower. Patient reports he has had a good nights sleep, and started ambulating up and down the hallway until he took his medications at 0730. Patient requested Tylenol at that time for c/o pain of 8 on a scale of 1-10 for left upper and lower tooth pain. Patient received all of his medications and while this Brim And Crown Presser was passing other patients their 0800 medications, patient interrupted and requested Anbesol. Informed the patient that I would be with him in about 5 or more minutes. Patient then went to the Community Room for breakfast and informed this Brim And Crown Presser Forget it, and dont get me the Anbesol if you dont have time for me. Informed the patient that other Nursing Staff were using the [employer] at the time, and I would get him his medication as soon as I could. Patient got up and put his tray back in the cart and went and laid down for only a few minutes then returned to this Writers medication cart and became much more intrusive and appeared to be visibly upset and demanding I want to now. Only about 4 minutes had passed between the time he requested the medication, to the time it was administered, when the patient was located lying in bed and reported Im going to have a panic attack. Discussed with the patient that I understand that he has important needs, but I am also assigned 6 patients who are all requesting some of the same things that he needs. Patient was quiet and then stated Alright, I need to be more patient. Patient then continued to perseverate on multiple items including I need clothing, I need to go to the dentist, I need someone to help me out and no one does ever. Patient was given Ativan 2mg po at 1100, with some relief and less perseverating in about 45 minutes. Patient continued to ambulate in the hallways and would take time outs by resting in his bed. Patient is hyper-focused on his tooth pain at this time, but reports the Tylenol 975mg really helps. Will continue to assist patient and help him out with some of the things that he reports that he Needs immediately. Plan: Pt is conserved and awaiting placement.
[2022-10-14 19:58] VITALS: BP 90/50
[2022-10-14] MEDS: psyllium seed 3.4 gm packet PO SCH (20:35)
[2022-10-14] MEDS: quetiapine 100mg tablet PO SCH (20:36)
--- NOTE | 2022-10-15 02:17 | NUR ---
Nursing Progress Note Problem: Per 5150 pt. is here for SA by OD on street drugs after command hallucinations telling him to do so. Pt. states that he took "Fentanyl, black china, meth, 8 ball" in suicide attempt. Pt. states he feels hopeless. Pt. is also delusional, stating, "They won't give me my billion dollars". Pt. states, "I tried killing myself because Im a free michelle. They dont love me but I love them. Yes I do." Interventions: Provide medication administration & medication management; Maintained a safe & supportive environment; Clear & simple instructions; Direction & encouragement regarding performance of ADLs; monitored behaviors & maintained clear boundaries; Patient physical assessment & 1:1 patient interview; Therapeutic conversation & active listening; Patient education & monitoring. Response: Pt was sleeping in bed at change of shift. Pt was awaken for vitals, HS meds and states he is doing ok and just wants to sleep. Pt states he already took off his nicotine patch. Ativan was held, due to pts low BP 90/50 and HR of 51. Plan: Pt is conserved and awaiting placement. Addendum: 10/15/22 at 0516 by Maty Kirkland RN Pt woke at 0500 and checked the clock. Asked patient if he was having tooth pain and needed a prn? Pt declined prn stating he was going back to sleep. Pt is calm, pleasant and cooperative.
[2022-10-15] MEDS: multivitamins, therapeutics tablet PO SCH (07:25)
[2022-10-15] MEDS: divalproex 250mg tablet, delayed-release PO SCH ×2 (07:26→20:40)
[2022-10-15] MEDS: QUEtiapine 25mg tablet PO SCH ×3 (07:26→20:39)
[2022-10-15] MEDS: benztropine 1mg tablet PO SCH ×2 (07:26→20:40)
[2022-10-15] MEDS: LORazepam 1 MG tablet PO SCH ×4 (07:26→20:54)
[2022-10-15] MEDS: sertraline 50mg tablet PO SCH (07:26)
[2022-10-15] MEDS: docusate sod 100mg capsule PO SCH ×2 (07:26→20:40)
[2022-10-15] MEDS: lactobacillus rhamnosus 10,000 MMU CELLS/CAPSULE PO SCH (07:27)
[2022-10-15] MEDS: buprenorphine/naloxone 2-0.5mg sublingual tablet SL SCH ×2 (07:27→15:21)
[2022-10-15] MEDS: haloperidol 5mg tablet PO SCH ×4 (07:27→20:40)
[2022-10-15] MEDS: nicotine 14mg patch - 24hr TD SCH (07:27)
[2022-10-15] MEDS: NICOTINE POLACRILEX 2 MG LOZENGE BC PRN ×2 (07:35→11:59)
[2022-10-15 07:44] VITALS: BP 108/77
[2022-10-15] MEDS: benzocaine (Anbesol) 12ml bottle MM PRN (08:20)
[2022-10-15] MEDS: acetaminophen 325mg tablet PO PRN ×2 (09:15→15:22)
--- NOTE | 2022-10-15 18:02 | NUR ---
Nursing Progress Note Problem: Per 5150 pt. is here for SA by OD on street drugs after command hallucinations telling him to do so. Pt. states that he took "Fentanyl, black china, meth, 8 ball" in suicide attempt. Pt. states he feels hopeless. Pt. is also delusional, stating, "They won't give me my billion dollars". Pt. states, "I tried killing myself because Im a free michelle. They dont love me but I love them. Yes I do." Interventions: Provided 1:1 assessment with therapeutic communication and active listening; Provided medication administration/education/monitoring; Maintained a supportive environment; Provided clear & simple instructions; Maintained [id number] safety checks. Response: Pt up in the morning pleasant socializing with staff. Pt spent most of the day pacing the halls with headphones on. Pt speaks in a low monotone voice and appears depressed at times during the day. Pt shared his thoughts with this food writer about living with his Mom and his concerns for a 16 year old sister. He shared he thinks about helping support his mother, getting a job and taking care of his sister. Pt states, "I know I have to not use drugs and take my Bipolar medications." He continues to have tooth pain uses Anbesol and Tylenol for the pain. Plan: Pt is conserved and awaiting placement.
[2022-10-15 19:00] VITALS: BP 96/39
[2022-10-15] MEDS: psyllium seed 3.4 gm packet PO SCH (20:39)
[2022-10-15] MEDS: quetiapine 100mg tablet PO SCH (20:39)
--- NOTE | 2022-10-15 20:55 | NUR ---
Nursing Progress Note Problem: Per 5150 pt. is here for SA by OD on street drugs after command hallucinations telling him to do so. Pt. states that he took "Fentanyl, black china, meth, 8 ball" in suicide attempt. Pt. states he feels hopeless. Pt. is also delusional, stating, "They won't give me my billion dollars". Pt. states, "I tried killing myself because Im a free michelle. They dont love me but I love them. Yes I do." Interventions: Provided 1:1 assessment with therapeutic communication and active listening; Provided medication administration/education/monitoring; Maintained a supportive environment; Provided clear & simple instructions; Maintained [id number] safety checks. Response: Pt was napping in bed at change of shift. He is waking up early and going to bed early lately. Pt states "I was active today. I'm ok." Reports his mood as "good", but affect is flat. Pts bp is 96/39 HR 56. Held patients ativan due to bp. Pt denies any symptoms. Pt c/o tooth pain 5/10, but declines anbesol and tylenol stating he wants to sleep. Pt also declines a snack. Pt states he threw away his nicotine lozenge earlier in the day. Plan: Pt is conserved and awaiting placement.
[2022-10-16] MEDS: acetaminophen 325mg tablet PO PRN ×2 (07:03→12:09)
[2022-10-16] MEDS: benzocaine (Anbesol) 12ml bottle MM PRN (07:03)
[2022-10-16] MEDS: benztropine 1mg tablet PO SCH ×2 (07:40→21:12)
[2022-10-16] MEDS: LORazepam 1 MG tablet PO SCH ×4 (07:40→21:12)
[2022-10-16] MEDS: divalproex 250mg tablet, delayed-release PO SCH ×2 (07:41→21:11)
[2022-10-16] MEDS: QUEtiapine 25mg tablet PO SCH ×3 (07:41→21:13)
[2022-10-16] MEDS: docusate sod 100mg capsule PO SCH ×2 (07:41→21:12)
[2022-10-16] MEDS: lactobacillus rhamnosus 10,000 MMU CELLS/CAPSULE PO SCH (07:41)
[2022-10-16] MEDS: sertraline 50mg tablet PO SCH (07:41)
[2022-10-16] MEDS: haloperidol 5mg tablet PO SCH ×4 (07:41→21:13)
[2022-10-16] MEDS: multivitamins, therapeutics tablet PO SCH (07:42)
[2022-10-16] MEDS: buprenorphine/naloxone 2-0.5mg sublingual tablet SL SCH ×2 (07:42→15:10)
[2022-10-16] MEDS: nicotine 14mg patch - 24hr TD SCH (08:00)
[2022-10-16 08:13] VITALS: BP 115/74
[2022-10-16] MEDS: LORazepam 1 MG tablet PO PRN (14:26)
[2022-10-16] MEDS: NICOTINE POLACRILEX 2 MG LOZENGE BC PRN (16:19)
--- NOTE | 2022-10-16 17:29 | NUR ---
Nursing Progress Note: Christophe Problem: Per 5150 pt. is here for SA by OD on street drugs after command hallucinations telling him to do so. Pt. states that he took "Fentanyl, black china, meth, 8 ball" in suicide attempt. Pt. states he feels hopeless. Pt. is also delusional, stating, "they won't give me my billion dollars". Pt. states, "I tried killing myself because Im a free michelle. They dont love me but I love them. Yes I do." Interventions: 1:1 assessment, therapeutic conversation, active listening, ensured contract for safety, medication administration/education/monitoring, behavior monitoring and intervention as needed; reality orientation, distraction, redirection, limit setting, show of support, encouragement, positive reinforcement, and Q15 minute safety checks. Response: Pt was up before breakfast. Compliant with medication administration. Took AM medication as ordered. Headset offered and accepted; pacing unit. Pt expressed to this TOE TRIMMER during 1:1 SI/HI, denies AV/H. Endorses depressions/anxiety. Pt has poor insight/judgement to current situation. Disheveled appearance with fair hygiene. Pt ate lunch in community room. Multiple snacks given throughout shift. Pt napped in bedroom after lunch. Pt given PRN Tylenol, Ambesol, and Ativan given. Towards end of shift pt began to state he was not feeling well; vitals taken all WNL. Pt requests to wean off suboxone. Pt in pleasant mood throughout shift, no inappropriate behaviors or emotional outbursts. Plan: Pt is conserved and awaiting placement.
[2022-10-16 19:00] VITALS: BP 101/49
[2022-10-16] MEDS: quetiapine 100mg tablet PO SCH (21:11)
[2022-10-16] MEDS: psyllium seed 3.4 gm packet PO SCH (21:14)
--- NOTE | 2022-10-17 05:16 | NUR ---
Nursing Progress Note: Christophe Problem: Per 5150 pt. is here for SA by OD on street drugs after command hallucinations telling him to do so. Pt. states that he took "Fentanyl, black china, meth, 8 ball" in suicide attempt. Pt. states he feels hopeless. Pt. is also delusional, stating, "they won't give me my billion dollars". Pt. states, "I tried killing myself because Im a free michelle. They dont love me but I love them. Yes I do." Interventions: 1:1 assessment, therapeutic conversation, active listening, ensured contract for safety, medication administration/education/monitoring, behavior monitoring and intervention as needed; reality orientation, distraction, redirection, limit setting, show of support, encouragement, positive reinforcement, and Q15 minute safety checks. Response: Patient was received sleeping at beginning of shift. Patient continued to seep and self isolate through out shift. Patient had to be awaken to give night medications. Patient retuned to bed after agreeing to drink some water. Plan: Pt is conserved and awaiting placement.
[2022-10-17] MEDS: LORazepam 1 MG tablet PO SCH ×4 (07:20→21:03)
[2022-10-17] MEDS: docusate sod 100mg capsule PO SCH ×2 (07:20→21:01)
[2022-10-17] MEDS: benztropine 1mg tablet PO SCH ×2 (07:20→21:02)
[2022-10-17] MEDS: lactobacillus rhamnosus 10,000 MMU CELLS/CAPSULE PO SCH (07:20)
[2022-10-17] MEDS: haloperidol 5mg tablet PO SCH ×4 (07:21→21:03)
[2022-10-17] MEDS: divalproex 250mg tablet, delayed-release PO SCH ×2 (07:21→21:03)
[2022-10-17] MEDS: sertraline 50mg tablet PO SCH (07:21)
[2022-10-17] MEDS: buprenorphine/naloxone 2-0.5mg sublingual tablet SL SCH ×2 (07:21→14:18)
[2022-10-17] MEDS: multivitamins, therapeutics tablet PO SCH (07:21)
[2022-10-17] MEDS: QUEtiapine 25mg tablet PO SCH ×3 (07:21→21:03)
[2022-10-17] MEDS: nicotine 14mg patch - 24hr TD SCH (07:22)
[2022-10-17 08:00] VITALS: BP 120/76
[2022-10-17] MEDS: NICOTINE POLACRILEX 2 MG LOZENGE BC PRN (08:17)
--- NOTE | 2022-10-17 09:46 | NUR ---
Sent updated notes to [facility] (10/09-10/16). JOEL Casanova
[2022-10-17] MEDS: acetaminophen 325mg tablet PO PRN (09:59)
--- NOTE | 2022-10-17 11:43 | NUR ---
Emailed Christophe's PG to request a dental appt. JOEL Casanova
[2022-10-17] MEDS: LORazepam 1 MG tablet PO PRN (14:02)
--- NOTE | 2022-10-17 17:32 | NUR ---
Nursing Progress Note: Christophe Problem: Per 5150 pt. is here for SA by OD on street drugs after command hallucinations telling him to do so. Pt. states that he took "Fentanyl, black china, meth, 8 ball" in suicide attempt. Pt. states he feels hopeless. Pt. is also delusional, stating, "they won't give me my billion dollars". Pt. states, "I tried killing myself because Im a free michelle. They dont love me but I love them. Yes I do." Interventions: 1:1 assessment, therapeutic conversation, active listening, ensured contract for safety, medication administration/education/monitoring, behavior monitoring and intervention as needed; reality orientation, distraction, redirection, limit setting, show of support, encouragement, positive reinforcement, and Q15 minute safety checks. Response: Pt was up before breakfast. Compliant with medication administration. Took AM medication as ordered. Headset offered and accepted; pacing unit. Pt expressed to this SHOT POLISHER during 1:1 SI/HI, denies AV/H. Speaking in linear clear manner. Endorses improving depressions/anxiety. This proposal writer spoke with pt SW regarding dental appointments, SW states she will follow up. Pt has poor insight/judgement to current situation. Disheveled appearance with fair hygiene. Pt ate lunch in community room. Multiple snacks given throughout shift. Pt napped in bedroom after lunch. Pt became sad/tearful after lunch. Pt given PRN Tylenol, Ambesol, Ativan. Complying with behavioral contract. Pt in pleasant mood throughout shift, no inappropriate behaviors or emotional outbursts. Plan: Pt is conserved and awaiting placement.
[2022-10-17 19:00] VITALS: BP 112/59
[2022-10-17] MEDS: psyllium seed 3.4 gm packet PO SCH (21:00)
[2022-10-17] MEDS: quetiapine 100mg tablet PO SCH (21:02)
--- NOTE | 2022-10-18 05:28 | NUR ---
Nursing Progress Note: Christophe Problem: Per 5150 pt. is here for SA by OD on street drugs after command hallucinations telling him to do so. Pt. states that he took "Fentanyl, black ch[place], meth, 8 ball" in suicide attempt. Pt. states he feels hopeless. Pt. is also delusional, stating, "they won't give me my billion dollars". Pt. states, "I tried killing myself because Im a free michelle. They dont love me but I love them. Yes I do." Interventions: 1:1 assessment, therapeutic conversation, active listening, ensured contract for safety, medication administration/education/monitoring, behavior monitoring and intervention as needed; reality orientation, distraction, redirection, limit setting, show of support, encouragement, positive reinforcement, and Q15 minute safety checks. Response: Patient was found sleeping in bed at change of shift. Patient continued to sleep and self isolate in room throughout shift. Patient had to be awaken to take night medication and went back to bed. Patient took all night medications without issue. Plan: Pt is conserved and awaiting placement.
[2022-10-18] MEDS: multivitamins, therapeutics tablet PO SCH (07:28)
[2022-10-18] MEDS: lactobacillus rhamnosus 10,000 MMU CELLS/CAPSULE PO SCH (07:28)
[2022-10-18] MEDS: LORazepam 1 MG tablet PO SCH ×4 (07:28→19:40)
[2022-10-18] MEDS: haloperidol 5mg tablet PO SCH ×4 (07:28→19:38)
[2022-10-18] MEDS: divalproex 250mg tablet, delayed-release PO SCH ×2 (07:29→19:38)
[2022-10-18] MEDS: QUEtiapine 25mg tablet PO SCH ×3 (07:29→19:38)
[2022-10-18] MEDS: docusate sod 100mg capsule PO SCH ×2 (07:30→19:38)
[2022-10-18] MEDS: buprenorphine/naloxone 2-0.5mg sublingual tablet SL SCH ×2 (07:30→15:14)
[2022-10-18] MEDS: benztropine 1mg tablet PO SCH ×2 (07:30→19:38)
[2022-10-18] MEDS: sertraline 50mg tablet PO SCH (07:30)
[2022-10-18] MEDS: nicotine 14mg patch - 24hr TD SCH (07:31)
[2022-10-18 08:00] VITALS: BP 117/64
[2022-10-18] MEDS: acetaminophen 325mg tablet PO PRN (10:25)
[2022-10-18] MEDS: amoxicillin 250mg capsule PO SCH (15:13)
[2022-10-18] MEDS: NICOTINE POLACRILEX 2 MG LOZENGE BC PRN (15:15)
[2022-10-18] MEDS: haloperidol 5mg tablet PO PRN (16:19)
[2022-10-18] MEDS: LORazepam 1 MG tablet PO PRN (16:19)
--- NOTE | 2022-10-18 17:12 | NUR ---
Nursing Progress Note: Christophe Problem: Patient is 5150 status. Per admit note "You jumped [place] the [place] with the intention of killing yourself". During interview pt. endorses SI without a plan, as well as auditory hallucinations, states he hears random words like, "Chance". Pt. reports he had been living at [facility] for 4 months before he relapsed 2 days ago, drinking whiskey until he blacked out and snorting meth. Pt. reports he is now homeless. Interventions: Medication administration, 1:1 MH assessment, maintained a safe and supportive environment, provided clear and simple instructions, provided encouragement regarding performance of ADLs, monitored behaviors and maintained clear boundaries, maintained Q15 minute safety checks. Response: Pt. received asleep, awoke for his medications, and was taken without hesitation. He denies SI, HI, AH, VH, and reports he is fasting. Pt. reports his last full meal was yesterday and was encouraged to eat recommended calories; he was compliant and ate subsequent meals and participated in snacks. Ed feeling good today but did c/o dental pain, receiving Tylenol X1. He is currently on a reward system for good behavior and continues to participate. He ate meals in the main dining room with cohorts, without issues. He requires constant feedback and validation about his behavior, and reports Im working hard to do good He perseverates about his next dental appointment. Later in the afternoon, pt. became agitated and raised his voice at this scientific technical writer stating your evil, you think Im stupid, you want to keep giving me medications, Im not fucking doing it Pt. was advised to lower his voice and go to his room to collect himself, he was hesitant to comply, and security was called to do a walk through. Pt. did acknowledge securitys presence and did take the time to calm down, PRN Ativan and Haldol administered; pt took without hesitation. He later exited his room remorseful and apologized, within 10 min. pt. reported I got issues with my roommate, he irritated Im coming in and out, I want a new room, Im trying to contain myself Electronic Masking System Operator spoke to roommate and he denied having or reporting any annoyance with roommate, a room change for roommate was made to prevent any escalation. No further incidents this shift. N.O for ABX to start per MD for dental issue. Plan: Pt requires stabilization with medication adjustment and management in a safe and therapeutic environment. Addendum: 10/18/22 at 1801 by Iveth Jamison LVN Pt. presenting with increased agitation, approached scientific technical writer stating " I want a shot" Electronic Masking System Operator advised pt. that was not available, he hovered at the door with intense eye contact stating "your evil, your making me suicidal" Electronic Masking System Operator advised pt. to back up from the door, as no other nurse was present. He appears to be fixated on this scientific technical writer and has delusions about my role in his behavior. Security called for a 2nd walk through as a de escalation tool.
[2022-10-18] MEDS: quetiapine 100mg tablet PO SCH (19:38)
[2022-10-18] MEDS: traZODone 50mg tablet PO PRN (19:39)
[2022-10-18] MEDS: psyllium seed 3.4 gm packet PO SCH (19:40)
[2022-10-18 19:43] VITALS: BP 156/92
--- NOTE | 2022-10-18 21:16 | NUR ---
Nursing Progress Note: Christophe Problem: Patient is 5150 status. Per admit note "You jumped off the clear [place] bridge with the intention of killing yourself". During interview pt. endorses SI without a plan, as well as auditory hallucinations, states he hears random words like, "Chance". Pt. reports he had been living at [facility] for 4 months before he relapsed 2 days ago, drinking whiskey until he blacked out and snorting meth. Pt. reports he is now homeless. Interventions: Medication administration, 1:1 MH assessment, maintained a safe and supportive environment, provided clear and simple instructions, provided encouragement regarding performance of ADLs, monitored behaviors and maintained clear boundaries, maintained Q15 minute safety checks. Response: Pt was pacing in the wagner at change of shift. Walked and spoke with patient and he states "I just wanted to fast today, Christians have been fasting on Thursday for years, and she kept telling me to eat!" Pt states he is concerned about getting fat, and that he used to weigh 400lbs and doesnt want to be that fat again. Pt is also upset that he didnt get an ensure. Pt states "that other doctor stopped my ensure and I need those, I need protein and I dont like to eat meat." Pt was able to calm himself but then began escalating again, pacing faster and crying. "Im just hopeless, Im never getting out of here! If that nurse is here tomorrow, Im just going to sleep all day. She called security on me for no reason!" Pt was asking for meds so HS meds were given. Pt continued to pace and then stated the meds helped then he requested prns to sleep and anbesol for his tooth. Pt declined to have snacks and went to bed. Plan: Pt requires stabilization with medication adjustment and management in a safe and therapeutic environment.
[2022-10-19] MEDS: haloperidol 5mg tablet PO SCH ×4 (07:47→21:29)
[2022-10-19] MEDS: docusate sod 100mg capsule PO SCH ×2 (07:47→21:28)
[2022-10-19] MEDS: sertraline 50mg tablet PO SCH (07:48)
[2022-10-19] MEDS: multivitamins, therapeutics tablet PO SCH (07:48)
[2022-10-19] MEDS: LORazepam 1 MG tablet PO SCH ×4 (07:48→21:29)
[2022-10-19] MEDS: buprenorphine/naloxone 2-0.5mg sublingual tablet SL SCH ×2 (07:48→15:28)
[2022-10-19] MEDS: divalproex 250mg tablet, delayed-release PO SCH ×2 (07:48→21:28)
[2022-10-19] MEDS: lactobacillus rhamnosus 10,000 MMU CELLS/CAPSULE PO SCH (07:48)
[2022-10-19] MEDS: benztropine 1mg tablet PO SCH ×2 (07:49→21:27)
[2022-10-19] MEDS: amoxicillin 250mg capsule PO SCH ×3 (07:49→15:28)
[2022-10-19] MEDS: QUEtiapine 25mg tablet PO SCH ×3 (07:49→21:29)
[2022-10-19] MEDS: nicotine 14mg patch - 24hr TD SCH (07:50)
[2022-10-19 08:00] VITALS: BP 131/68
[2022-10-19] MEDS: acetaminophen 325mg tablet PO PRN ×2 (08:58→16:31)
[2022-10-19] MEDS: ibuprofen tablet 400 MG TABLET PO PRN (10:24)
[2022-10-19] MEDS: NICOTINE POLACRILEX 2 MG LOZENGE BC PRN (10:24)
[2022-10-19] MEDS: LORazepam 1 MG tablet PO PRN (14:35)
--- NOTE | 2022-10-19 16:44 | NUR ---
Nursing Progress Note Christophe Problem: Per 5150 pt. is here for SA by OD on street drugs after command hallucinations telling him to do so. Pt. states that he took "Fentanyl, black china, meth, 8 ball" in suicide attempt. Pt. states he feels hopeless. Pt. is also delusional, stating, "They won't give me my billion dollars". Pt. states, "I tried killing myself because Im a free michelle. They dont love me but I love them. Yes I do." Interventions: Provide medication administration & medication management; Maintained a safe & supportive environment; Clear & simple instructions; Direction & encouragement regarding performance of ADLs; monitored behaviors & maintained clear boundaries; Patient physical assessment & 1:1 patient interview; Therapeutic conversation & active listening; Patient education & monitoring. Response: Received Pt in bed sleeping w/o distress at the beginning of the shift. Pt woke and was cooperative with vitals and engaged in assessments. Pt ate breakfast and lunch well, and was happy to see he lost weight when weekly weight done. Pt asked for many PRN meds today r/t tooth pain and anxiety. He isolated in room more than usual but did not have any angry outbursts on this shift. Pt communicating well and overall pleasant although he was not very excited about the football game. Plan: Pt is conserved and awaiting retirement placement.
[2022-10-19 20:13] VITALS: BP 98/68
[2022-10-19] MEDS: quetiapine 100mg tablet PO SCH (21:29)
[2022-10-19] MEDS: psyllium seed 3.4 gm packet PO SCH (21:29)
--- NOTE | 2022-10-20 02:46 | NUR ---
Nursing Progress Note Christophe Problem: Per 5150 pt. is here for SA by OD on street drugs after command hallucinations telling him to do so. Pt. states that he took "Fentanyl, black ch[place], meth, 8 ball" in suicide attempt. Pt. states he feels hopeless. Pt. is also delusional, stating, "They won't give me my billion dollars". Pt. states, "I tried killing myself because Im a free michelle. They dont love me but I love them. Yes I do." Interventions: Provide medication administration & medication management; Maintained a safe & supportive environment; Clear & simple instructions; Direction & encouragement regarding performance of ADLs; monitored behaviors & maintained clear boundaries; Patient physical assessment & 1:1 patient interview; Therapeutic conversation & active listening; Patient education & monitoring. Response: Received Pt in bed sleeping at the beginning of the shift. Pt woke for assessments and HS meds. He was cooperative with vitals and HS meds and talked about who won the Superbowl. Pt denies SI/HI and A/VHs at this time and returned to sleep after using the bathroom. Plan: Pt is conserved and awaiting [facility].
[2022-10-20] MEDS: buprenorphine/naloxone 2-0.5mg sublingual tablet SL SCH ×2 (07:19→14:58)
[2022-10-20] MEDS: multivitamins, therapeutics tablet PO SCH (07:19)
[2022-10-20] MEDS: LORazepam 1 MG tablet PO SCH ×4 (07:19→20:50)
[2022-10-20] MEDS: docusate sod 100mg capsule PO SCH ×2 (07:19→20:50)
[2022-10-20] MEDS: nicotine 14mg patch - 24hr TD SCH (07:19)
[2022-10-20] MEDS: divalproex 250mg tablet, delayed-release PO SCH ×2 (07:20→20:51)
[2022-10-20] MEDS: lactobacillus rhamnosus 10,000 MMU CELLS/CAPSULE PO SCH (07:20)
[2022-10-20] MEDS: benztropine 1mg tablet PO SCH ×2 (07:20→20:50)
[2022-10-20] MEDS: amoxicillin 250mg capsule PO SCH ×4 (07:20→23:43)
[2022-10-20] MEDS: haloperidol 5mg tablet PO SCH ×4 (07:20→20:51)
[2022-10-20] MEDS: QUEtiapine 25mg tablet PO SCH ×3 (07:20→20:51)
[2022-10-20 07:41] VITALS: BP 92/60
[2022-10-20] MEDS: sertraline 50mg tablet PO SCH (08:25)
[2022-10-20] MEDS: NICOTINE POLACRILEX 2 MG LOZENGE BC PRN (08:25)
[2022-10-20] MEDS: acetaminophen 325mg tablet PO PRN (08:26)
--- NOTE | 2022-10-20 08:41 | NUR ---
DENTAL APPT 10/22/22-DOCK COORDINATOR 9:30 AM Christophe has a dental appointment on 10/22/22 and will get picked up 9:30-10. Transport has been reminded that Christophe is not allowed to have caffeine. JOEL Casanova
--- NOTE | 2022-10-20 08:55 | NUR ---
F/u 10/20: Pt PO mostly ~100% meals w/ snacks meeting estimated needs. LBM 10/18. No nutrition interventions at this time. Will continue to follow. Recommendations: 1) Continue Vegetarian diet per pt request; double eggs WB; cottage cheese/peaches/salad WL; encourage PO intake. Liberalize to regular diet if pt agreeable to assist meeting needs 2) MVI supplementation per MD 3) Bowel care PRN 4) Weekly scaled weights Addendum: 10/20/22 at [address] Amended: Links added.
[2022-10-20] MEDS: mag hydrox/Alum hydrox/simeth 30ml oral suspension PO PRN (09:14)
[2022-10-20] MEDS: ibuprofen tablet 400 MG TABLET PO PRN ×2 (10:11→18:20)
--- NOTE | 2022-10-20 16:48 | NUR ---
Nursing Progress Note Problem: Per 5150 pt. is here for SA by OD on street drugs after command hallucinations telling him to do so. Pt. states that he took "Fentanyl, black ch[place], meth, 8 ball" in suicide attempt. Pt. states he feels hopeless. Pt. is also delusional, stating, "They won't give me my billion dollars". Pt. states, "I tried killing myself because Im a free michelle. They dont love me but I love them. Yes I do." Interventions: Provide medication administration & medication management; Maintained a safe & supportive environment; Clear & simple instructions; Direction & encouragement regarding performance of ADLs; monitored behaviors & maintained clear boundaries; Patient physical assessment & 1:1 patient interview; Therapeutic conversation & active listening; Patient education & monitoring. Response: Received patient who was awake early at approximately 0720 and took his 0800 medications at that time. Patient reports he is feeling good and asked How many days have I been good? Informed the patient I would look at his record and today it has been 19 days since patient had an uneventful day since his dental appointment. Patient smiled and requested a chocolate from his [employer] (football that is located in the office in the cupboard). Patient also received mozzarella sticks and jalapeno poppers for lunch. Patient participated in snacks/meals throughout the day. Patient ambulated in the hallway for an extended period of time throughout the entire day and say he is feeling better with much more exercise. Patient was smiling and talking with peers throughout the day and had a really great day. Plan: Pt is conserved and awaiting placement.
[2022-10-20 20:12] VITALS: BP 106/61
[2022-10-20] MEDS: quetiapine 100mg tablet PO SCH (20:50)
[2022-10-20] MEDS: psyllium seed 3.4 gm packet PO SCH (20:50)
--- NOTE | 2022-10-20 21:57 | NUR ---
Nursing Progress Note Problem: Per 5150 pt. is here for SA by OD on street drugs after command hallucinations telling him to do so. Pt. states that he took "Fentanyl, black ch[place], meth, 8 ball" in suicide attempt. Pt. states he feels hopeless. Pt. is also delusional, stating, "They won't give me my billion dollars". Pt. states, "I tried killing myself because Im a free michelle. They dont love me but I love them. Yes I do." Interventions: Provide medication administration & medication management; Maintained a safe & supportive environment; Clear & simple instructions; Direction & encouragement regarding performance of ADLs; monitored behaviors & maintained clear boundaries; Patient physical assessment & 1:1 patient interview; Therapeutic conversation & active listening; Patient education & monitoring. Response: Pt was walking in the wagner at change of shift, and requested prn for pain. Pt took prn ibuprofen. Pt is in a pleasant mood, states he is doing good. Spent time pacing in the halls with peers before going to bed. Pt declined to have and evening snack, took HS meds and went to sleep. Plan: Pt is conserved and awaiting placement.
[2022-10-21] MEDS: QUEtiapine 25mg tablet PO SCH ×3 (07:24→20:06)
[2022-10-21] MEDS: lactobacillus rhamnosus 10,000 MMU CELLS/CAPSULE PO SCH (07:24)
[2022-10-21] MEDS: amoxicillin 250mg capsule PO SCH ×2 (07:24→14:46)
[2022-10-21] MEDS: multivitamins, therapeutics tablet PO SCH (07:25)
[2022-10-21] MEDS: divalproex 250mg tablet, delayed-release PO SCH ×2 (07:25→20:05)
[2022-10-21] MEDS: sertraline 50mg tablet PO SCH (07:25)
[2022-10-21] MEDS: LORazepam 1 MG tablet PO SCH ×4 (07:25→20:05)
[2022-10-21] MEDS: haloperidol 5mg tablet PO SCH ×4 (07:26→20:06)
[2022-10-21] MEDS: benztropine 1mg tablet PO SCH ×2 (07:26→20:06)
[2022-10-21] MEDS: buprenorphine/naloxone 2-0.5mg sublingual tablet SL SCH ×2 (07:27→14:47)
[2022-10-21] MEDS: nicotine 14mg patch - 24hr TD SCH (07:27)
[2022-10-21 07:47] VITALS: BP 112/71
[2022-10-21] MEDS: NICOTINE POLACRILEX 2 MG LOZENGE BC PRN ×2 (07:58→15:56)
[2022-10-21] MEDS: acetaminophen 325mg tablet PO PRN ×2 (07:59→14:47)
[2022-10-21] MEDS: docusate sod 100mg capsule PO SCH ×2 (08:01→20:06)
[2022-10-21] MEDS: LORazepam 1 MG tablet PO PRN (10:11)
[2022-10-21] MEDS: benzocaine (Anbesol) 12ml bottle MM PRN (11:02)
[2022-10-21] MEDS: ibuprofen tablet 400 MG TABLET PO PRN (17:37)
--- NOTE | 2022-10-21 17:48 | NUR ---
Nursing Progress Note Problem: Per 5150 pt. is here for SA by OD on street drugs after command hallucinations telling him to do so. Pt. states that he took "Fentanyl, black ch[place], meth, 8 ball" in suicide attempt. Pt. states he feels hopeless. Pt. is also delusional, stating, "They won't give me my billion dollars". Pt. states, "I tried killing myself because Im a free michelle. They dont love me but I love them. Yes I do." Interventions: Provide medication administration & medication management; Maintained a safe & supportive environment; Clear & simple instructions; Direction & encouragement regarding performance of ADLs; monitored behaviors & maintained clear boundaries; Patient physical assessment & 1:1 patient interview; Therapeutic conversation & active listening; Patient education & monitoring. Response: Received patient sleeping in bed at change of shift. Patient awakens at 07:20 and requests his medications. Patient reports that he is happy this morning. Later in the morning, patient reports anxiety and requests prn Ativan which was given with moderate benefit. Patient pacing the hallways most of the day until his ankle was hurting too much, then he went and laid down. Patient is medication compliant. Patient states that he is just tired of being here, but is proud of his behavior. Patient went and laid down after dinner and said cortes. Plan: Pt is conserved and awaiting placement.
[2022-10-21 19:21] VITALS: BP 105/66
[2022-10-21] MEDS: quetiapine 100mg tablet PO SCH (20:06)
[2022-10-21] MEDS: psyllium seed 3.4 gm packet PO SCH (20:06)
--- NOTE | 2022-10-21 21:15 | NUR ---
Nursing Progress Note Problem: Per 5150 pt. is here for SA by OD on street drugs after command hallucinations telling him to do so. Pt. states that he took "Fentanyl, black [place], meth, 8 ball" in suicide attempt. Pt. states he feels hopeless. Pt. is also delusional, stating, "They won't give me my billion dollars". Pt. states, "I tried killing myself because Im a free michelle. They dont love me but I love them. Yes I do." Interventions: Provide medication administration & medication management; Maintained a safe & supportive environment; Clear & simple instructions; Direction & encouragement regarding performance of ADLs; monitored behaviors & maintained clear boundaries; Patient physical assessment & 1:1 patient interview; Therapeutic conversation & active listening; Patient education & monitoring. Response: Pt was asleep at change of shift. Pt woke for vitals and reports his mood is "good". Pt declines a snack tonight stating he wants to sleep because he has a dentist appt. Pt took HS meds and went back to sleep. Pt states he took off nicotine patch already Plan: Pt is conserved and awaiting placement.
[2022-10-22] MEDS: multivitamins, therapeutics tablet PO SCH (07:35)
[2022-10-22] MEDS: nicotine 14mg patch - 24hr TD SCH (07:35)
[2022-10-22] MEDS: lactobacillus rhamnosus 10,000 MMU CELLS/CAPSULE PO SCH (07:35)
[2022-10-22] MEDS: amoxicillin 250mg capsule PO SCH ×3 (07:36→16:27)
[2022-10-22] MEDS: QUEtiapine 25mg tablet PO SCH ×3 (07:36→20:34)
[2022-10-22] MEDS: docusate sod 100mg capsule PO SCH ×2 (07:36→20:33)
[2022-10-22] MEDS: benztropine 1mg tablet PO SCH ×2 (07:36→20:34)
[2022-10-22] MEDS: haloperidol 5mg tablet PO SCH ×4 (07:36→20:33)
[2022-10-22] MEDS: divalproex 250mg tablet, delayed-release PO SCH ×2 (07:38→20:34)
[2022-10-22] MEDS: sertraline 50mg tablet PO SCH (07:38)
[2022-10-22] MEDS: LORazepam 1 MG tablet PO SCH ×4 (07:38→20:33)
[2022-10-22] MEDS: buprenorphine/naloxone 2-0.5mg sublingual tablet SL SCH ×2 (07:38→16:26)
[2022-10-22 08:00] VITALS: BP 112/62
[2022-10-22] MEDS: NICOTINE POLACRILEX 2 MG LOZENGE BC PRN (08:23)
[2022-10-22] MEDS: acetaminophen 325mg tablet PO PRN ×2 (09:09→16:45)
[2022-10-22] MEDS: LORazepam 1 MG tablet PO PRN (17:13)
--- NOTE | 2022-10-22 18:05 | NUR ---
Nursing Progress Note Christophe Problem: Per 5150 pt. is here for SA by OD on street drugs after command hallucinations telling him to do so. Pt. states that he took "Fentanyl, black [place], meth, 8 ball" in suicide attempt. Pt. states he feels hopeless. Pt. is also delusional, stating, "They won't give me my billion dollars". Pt. states, "I tried killing myself because Im a free michelle. They dont love me but I love them. Yes I do." Interventions: Provide medication administration & medication management; Maintained a safe & supportive environment; Clear & simple instructions; Direction & encouragement regarding performance of ADLs; monitored behaviors & maintained clear boundaries; Patient physical assessment & 1:1 patient interview; Therapeutic conversation & active listening; Patient education & monitoring. Response: Received Pt in bed sleeping w/o distress at the beginning of the shift. Pt woke and was cooperative with vitals and engaged in assessments. Pt ate breakfast and took AM meds w/o issue. Pt picked up and transported to dental Appt. in [place]. Pt returned in good mood and took scheduled meds and received snacks as part of behavioral plan. Pt became anxious and received Ativan PRN as well with good effect. Pt reported not drinking coffee while out and did not have any angry outbursts upon return. Plan: Pt is conserved and awaiting correction placement.
[2022-10-22 20:00] VITALS: BP 109/52
[2022-10-22] MEDS: psyllium seed 3.4 gm packet PO SCH (20:33)
[2022-10-22] MEDS: quetiapine 100mg tablet PO SCH (20:34)
--- NOTE | 2022-10-23 04:52 | NUR ---
Nursing Progress Note Christophe Problem: Per 5150 pt. is here for SA by OD on street drugs after command hallucinations telling him to do so. Pt. states that he took "Fentanyl, black [place], meth, 8 ball" in suicide attempt. Pt. states he feels hopeless. Pt. is also delusional, stating, "They won't give me my billion dollars". Pt. states, "I tried killing myself because Im a free michelle. They dont love me but I love them. Yes I do." Interventions: Provide medication administration & medication management; Maintained a safe & supportive environment; Clear & simple instructions; Direction & encouragement regarding performance of ADLs; monitored behaviors & maintained clear boundaries; Patient physical assessment & 1:1 patient interview; Therapeutic conversation & active listening; Patient education & monitoring. Response: Received Pt in his room resting and tired from stress of dental apt. today. Pt reported wishing he was free on the outside. He was cooperative with vitals and assessments and took HS meds w/o issue. Pt denies SI/HI and minimal AHs, and had no violent or angry outbursts this shift. He went to bed early and remained asleep through the night. Plan: Pt is conserved and awaiting terminal [facility] placement.
[2022-10-23] MEDS: QUEtiapine 25mg tablet PO SCH ×3 (07:42→20:56)
[2022-10-23] MEDS: amoxicillin 250mg capsule PO SCH ×2 (07:42)
[2022-10-23] MEDS: buprenorphine/naloxone 2-0.5mg sublingual tablet SL SCH ×3 (07:43→20:55)
[2022-10-23] MEDS: divalproex 250mg tablet, delayed-release PO SCH ×2 (07:43→20:56)
[2022-10-23] MEDS: haloperidol 5mg tablet PO SCH ×4 (07:43→20:56)
[2022-10-23] MEDS: sertraline 50mg tablet PO SCH (07:45)
[2022-10-23] MEDS: lactobacillus rhamnosus 10,000 MMU CELLS/CAPSULE PO SCH (07:45)
[2022-10-23] MEDS: LORazepam 1 MG tablet PO SCH ×4 (07:45→20:56)
[2022-10-23] MEDS: benztropine 1mg tablet PO SCH ×2 (07:45→20:56)
[2022-10-23] MEDS: multivitamins, therapeutics tablet PO SCH (07:45)
[2022-10-23] MEDS: docusate sod 100mg capsule PO SCH ×2 (07:45→20:55)
[2022-10-23] MEDS: nicotine 14mg patch - 24hr TD SCH (08:06)
[2022-10-23] MEDS: acetaminophen 325mg tablet PO PRN (11:24)
[2022-10-23] MEDS: LORazepam 1 MG tablet PO PRN (15:01)
--- NOTE | 2022-10-23 15:49 | NUR ---
Nursing Progress Note Problem: Per 5150 pt. is here for SA by OD on street drugs after command hallucinations telling him to do so. Pt. states that he took "Fentanyl, black [place], meth, 8 ball" in suicide attempt. Pt. states he feels hopeless. Pt. is also delusional, stating, "They won't give me my billion dollars". Pt. states, "I tried killing myself because Im a free michelle. They dont love me but I love them. Yes I do." Interventions: Provided 1:1 assessment with therapeutic communication and active listening; Provided medication administration/education/monitoring; Provided clear & simple instructions; Provide encouragement and education regarding performance of ADLs; Monitored behaviors & maintained clear boundaries; PRN Ativan given for anxiety. Monitored [id number] safety checks. Response: Pt c/o of tooth pain, sensitive to cold and gums bleeding when he brushes his teeth; He endorses regular BM and that "drinking milk helps." Pt stops at the nurses station frequently to share his thoughts and feelings throughout the shift. Pt is discouraged over being here for the past 5 months. Good effect with PRN Ativan 2mg. Pt came up and reports he is feeling better thanking this nurse for the medicine. Plan: Pt is conserved and awaiting correction placement.
[2022-10-23] MEDS: NICOTINE POLACRILEX 2 MG LOZENGE BC PRN (15:55)
[2022-10-23 19:00] VITALS: BP 102/60
[2022-10-23] MEDS: psyllium seed 3.4 gm packet PO SCH (20:55)
[2022-10-23] MEDS: quetiapine 100mg tablet PO SCH (20:56)
--- NOTE | 2022-10-24 00:05 | NUR ---
Nursing Progress Note Christophe Problem: Per 5150 pt. is here for SA by OD on street drugs after command hallucinations telling him to do so. Pt. states that he took "Fentanyl, black [place], meth, 8 ball" in suicide attempt. Pt. states he feels hopeless. Pt. is also delusional, stating, "They won't give me my billion dollars". Pt. states, "I tried killing myself because Im a free michelle. They dont love me but I love them. Yes I do." Interventions: Provided 1:1 assessment with therapeutic communication and active listening; Provided medication administration/education/monitoring; Provided clear & simple instructions; Provide encouragement and education regarding performance of ADLs; Monitored behaviors & maintained clear boundaries; PRN Ativan given for anxiety. Monitored [id number] safety checks. Response: Received pt sleeping in bed. Woke pt up for HS medications which he accepted. Pt states he is tired and had no complaints. Pt did not want to converse with this RN. Pt went back to sleep and will continue to monitor. Plan: Pt is conserved and awaiting alf placement.
[2022-10-24] MEDS: nicotine 14mg patch - 24hr TD SCH (07:03)
[2022-10-24] MEDS: benztropine 1mg tablet PO SCH ×2 (07:04→20:36)
[2022-10-24] MEDS: divalproex 250mg tablet, delayed-release PO SCH ×2 (07:04→20:36)
[2022-10-24] MEDS: QUEtiapine 25mg tablet PO SCH ×3 (07:04→20:37)
[2022-10-24] MEDS: LORazepam 1 MG tablet PO SCH ×4 (07:04→20:36)
[2022-10-24] MEDS: docusate sod 100mg capsule PO SCH ×2 (07:05→20:36)
[2022-10-24] MEDS: multivitamins, therapeutics tablet PO SCH (07:05)
[2022-10-24] MEDS: lactobacillus rhamnosus 10,000 MMU CELLS/CAPSULE PO SCH (07:05)
[2022-10-24] MEDS: sertraline 50mg tablet PO SCH (07:05)
[2022-10-24] MEDS: buprenorphine/naloxone 2-0.5mg sublingual tablet SL SCH ×3 (07:05→20:36)
[2022-10-24] MEDS: haloperidol 5mg tablet PO SCH ×4 (07:05→20:36)
[2022-10-24 08:55] VITALS: BP 115/79
[2022-10-24] MEDS: ibuprofen tablet 400 MG TABLET PO PRN (11:58)
[2022-10-24] MEDS: acetaminophen 325mg tablet PO PRN (13:17)
--- NOTE | 2022-10-24 17:24 | NUR ---
Nursing Progress Note Problem: Per 5150 pt. is here for SA by OD on street drugs after command hallucinations telling him to do so. Pt. states that he took "Fentanyl, black [place], meth, 8 ball" in suicide attempt. Pt. states he feels hopeless. Pt. is also delusional, stating, "They won't give me my billion dollars". Pt. states, "I tried killing myself because Im a free michelle. They dont love me but I love them. Yes I do." Interventions: Provided 1:1 assessment with therapeutic communication and active listening; Provided medication administration/education/monitoring; Provided clear & simple instructions; Provide encouragement and education regarding performance of ADLs; Monitored behaviors & maintained clear boundaries; PRN Ativan given for anxiety. Monitored [id number] safety checks. Response: Patient was up early for breakfast. He came out of his room and started walking. Patient walks all day, even when his legs hurt. He ate very little of his breakfast and was compliant with medications. Patient has a goal of losing weight, and it seems as if its his only goal. He continues to show his discouragement at still being here every day with staff and his provider. Patient is on a behavior plan now. If he would make following the plan a major goal, instead of losing weight, he would probably have a better chance of getting placed sooner. Patient continues to report significant mouth pain related to a cavity that needs to be filled. Plan: Pt is conserved and awaiting jail placement.
[2022-10-24 19:00] VITALS: BP 122/59
[2022-10-24] MEDS: psyllium seed 3.4 gm packet PO SCH (20:36)
[2022-10-24] MEDS: quetiapine 100mg tablet PO SCH (20:37)
--- NOTE | 2022-10-25 00:26 | NUR ---
Nursing Progress Note Christophe Problem: Per 5150 pt. is here for SA by OD on street drugs after command hallucinations telling him to do so. Pt. states that he took "Fentanyl, black china, meth, 8 ball" in suicide attempt. Pt. states he feels hopeless. Pt. is also delusional, stating, "They won't give me my billion dollars". Pt. states, "I tried killing myself because Im a free michelle. They dont love me but I love them. Yes I do." Interventions: Provided 1:1 assessment with therapeutic communication and active listening; Provided medication administration/education/monitoring; Provided clear & simple instructions; Provide encouragement and education regarding performance of ADLs; Monitored behaviors & maintained clear boundaries; PRN Ativan given for anxiety. Monitored [id number] safety checks. Response: Patient sleeping at change of shift. Woke pt up for HS medications, the patient states he is doing OK and is sleepy. The pt got up to use the bathroom and went back to sleep, pt isolated all evening in his room. Plan: Pt is conserved and awaiting termite control technician placement.
[2022-10-25] MEDS: lactobacillus rhamnosus 10,000 MMU CELLS/CAPSULE PO SCH (07:14)
[2022-10-25] MEDS: LORazepam 1 MG tablet PO SCH ×4 (07:14→21:01)
[2022-10-25] MEDS: ibuprofen tablet 400 MG TABLET PO PRN ×2 (07:14→14:56)
[2022-10-25] MEDS: sertraline 50mg tablet PO SCH (07:15)
[2022-10-25] MEDS: divalproex 250mg tablet, delayed-release PO SCH ×2 (07:15→21:01)
[2022-10-25] MEDS: docusate sod 100mg capsule PO SCH ×2 (07:15→21:02)
[2022-10-25] MEDS: benztropine 1mg tablet PO SCH ×2 (07:15→21:01)
[2022-10-25] MEDS: QUEtiapine 25mg tablet PO SCH ×3 (07:15→21:02)
[2022-10-25] MEDS: buprenorphine/naloxone 2-0.5mg sublingual tablet SL SCH ×3 (07:16→21:01)
[2022-10-25] MEDS: multivitamins, therapeutics tablet PO SCH (07:16)
[2022-10-25] MEDS: haloperidol 5mg tablet PO SCH ×4 (07:17→21:01)
[2022-10-25 08:00] VITALS: BP 92/52
[2022-10-25] MEDS: acetaminophen 325mg tablet PO PRN (08:35)
[2022-10-25] MEDS: nicotine 14mg patch - 24hr TD SCH (08:38)
--- NOTE | 2022-10-25 17:31 | NUR ---
Nursing Progress Note Problem: Per 5150 pt. is here for SA by OD on street drugs after command hallucinations telling him to do so. Pt. states that he took "Fentanyl, black china, meth, 8 ball" in suicide attempt. Pt. states he feels hopeless. Pt. is also delusional, stating, "They won't give me my billion dollars". Pt. states, "I tried killing myself because Im a free michelle. They dont love me but I love them. Yes I do." Interventions: Provided 1:1 assessment with therapeutic communication and active listening; Provided medication administration/education/monitoring; Provided clear & simple instructions; Provide encouragement and education regarding performance of ADLs; Monitored behaviors & maintained clear boundaries; PRN Ativan given for anxiety. Monitored [id number] safety checks. Response: Patient came out of his room right after shift change. He starts pacing right away, until breakfast comes. Patient wastes most of his meal, because I need to lose weight. Hes compliant with all medications, then starts pacing again. Patient paces on and off until lunch time. There is a new patient that is manic, and this patient made some mean remarks to the patient. It seemed like patient was going to lose control, but he was able to maintain by going to his room. Plan: Pt is conserved and awaiting intermediate project manager placement.
[2022-10-25 20:00] VITALS: BP 116/61
[2022-10-25] MEDS: quetiapine 100mg tablet PO SCH (21:00)
[2022-10-25] MEDS: psyllium seed 3.4 gm packet PO SCH (21:04)
--- NOTE | 2022-10-26 03:21 | NUR ---
Nursing Progress Note Problem: Per 5150 pt. is here for SA by OD on street drugs after command hallucinations telling him to do so. Pt. states that he took "Fentanyl, black china, meth, 8 ball" in suicide attempt. Pt. states he feels hopeless. Pt. is also delusional, stating, "They won't give me my billion dollars". Pt. states, "I tried killing myself because Im a free michelle. They dont love me but I love them. Yes I do." Interventions: Provided 1:1 assessment with therapeutic communication and active listening; Provided medication administration/education/monitoring; Provided clear & simple instructions; Provide encouragement and education regarding performance of ADLs; Monitored behaviors & maintained clear boundaries; PRN Ativan given for anxiety. Monitored [id number] safety checks. Response: Patient self isolated in his room this shift. He primarily slept. Patient tells this filing writer that he is feeling ok. He denies S/I, H/I, or any hallucinations. Patient is medications compliant. Plan: Pt is conserved and awaiting termite control servicer placement.
[2022-10-26] MEDS: benzocaine (Anbesol) 12ml bottle MM PRN (03:56)
[2022-10-26] MEDS: ibuprofen tablet 400 MG TABLET PO PRN ×2 (03:56→09:07)
--- NOTE | 2022-10-26 03:56 | NUR ---
Patient awoke with a complaint of dental pain. Motrin and Anbesol were administered.
[2022-10-26] MEDS: LORazepam 1 MG tablet PO SCH ×4 (07:25→20:18)
[2022-10-26 07:26] VITALS: BP 141/91
[2022-10-26] MEDS: sertraline 50mg tablet PO SCH (07:26)
[2022-10-26] MEDS: docusate sod 100mg capsule PO SCH ×2 (07:26→20:18)
[2022-10-26] MEDS: lactobacillus rhamnosus 10,000 MMU CELLS/CAPSULE PO SCH (07:26)
[2022-10-26] MEDS: multivitamins, therapeutics tablet PO SCH (07:26)
[2022-10-26] MEDS: benztropine 1mg tablet PO SCH ×2 (07:26→20:18)
[2022-10-26] MEDS: QUEtiapine 25mg tablet PO SCH ×3 (07:26→20:19)
[2022-10-26] MEDS: haloperidol 5mg tablet PO SCH ×4 (07:26→20:18)
[2022-10-26] MEDS: divalproex 250mg tablet, delayed-release PO SCH ×2 (07:26→20:18)
[2022-10-26] MEDS: nicotine 14mg patch - 24hr TD SCH (07:27)
[2022-10-26] MEDS: buprenorphine/naloxone 2-0.5mg sublingual tablet SL SCH ×3 (07:27→20:18)
[2022-10-26] MEDS: acetaminophen 325mg tablet PO PRN ×2 (09:07→15:40)
--- NOTE | 2022-10-26 17:18 | NUR ---
Nursing Progress Note Problem: Per 5150 pt. is here for SA by OD on street drugs after command hallucinations telling him to do so. Pt. states that he took "Fentanyl, black china, meth, 8 ball" in suicide attempt. Pt. states he feels hopeless. Pt. is also delusional, stating, "They won't give me my billion dollars". Pt. states, "I tried killing myself because Im a free michelle. They dont love me but I love them. Yes I do." Interventions: Provide medication administration & medication management; Maintained a safe & supportive environment; Clear & simple instructions; Direction & encouragement regarding performance of ADLs; monitored behaviors & maintained clear boundaries; Patient physical assessment & 1:1 patient interview; Therapeutic conversation & active listening; Patient education & monitoring. Response: Patient reports Telma been up since 4 am with tooth pain. Patient was ambulating in the hallway and greeted by this Compliance Quality Performance Analyst at 0625. Patient is pleasant and smiling at this time. Patient received his morning medications at 0720. Patient states Im feeling good, and its going to be a good day. Patient ambulated in the hallway most of the morning, then started to have a conversation with one of the staff members about [employer]. Patient started to make slightly delusional statements regarding his support for the [employer], when he was asked by another Staff Member to not continue to converse about this matter. Patient was immediately apologetic and stopped talking about the [employer] and walked away from the door. Patient returned to the door and apologized that he had said anything about the [employer], and the apology was accepted by the Staff Member, and patient started crying. This sign writer letterer or painter gave the patient a hug and informed him he didnt do anything wrong but sometimes what we say is not everyones cup of tea, but reinforced that he had done nothing wrong. Patient retreated to his bed and relaxed under lunchtime. Patient had requested a burrito this morning, for lunch, and patient ate it in the Community Room for lunch. Patient then reported to another nurse, in my absence, that he had vomited after lunch x1. Patient immediately fell back to sleep in his room, then woke up at 1545 and took his ordered medications for 1500 & 1600. Patient stated he felt better but again c/o tooth pain and was given Tylenol 975 mg po for tooth pain rated at 7 on a scale of 1-10. Patient rested in bed for short periods of time from 1600 to 1800 and then went to the Community Room for dinner. Plan: Pt is conserved and awaiting placement.
[2022-10-26 19:34] VITALS: BP 98/54
[2022-10-26] MEDS: psyllium seed 3.4 gm packet PO SCH (20:18)
[2022-10-26] MEDS: quetiapine 100mg tablet PO SCH (20:18)
--- NOTE | 2022-10-26 21:11 | NUR ---
Nursing Progress Note Problem: Per 5150 pt. is here for SA by OD on street drugs after command hallucinations telling him to do so. Pt. states that he took "Fentanyl, black china, meth, 8 ball" in suicide attempt. Pt. states he feels hopeless. Pt. is also delusional, stating, "They won't give me my billion dollars". Pt. states, "I tried killing myself because Im a free michelle. They dont love me but I love them. Yes I do." Interventions: Provide medication administration & medication management; Maintained a safe & supportive environment; Clear & simple instructions; Direction & encouragement regarding performance of ADLs; monitored behaviors & maintained clear boundaries; Patient physical assessment & 1:1 patient interview; Therapeutic conversation & active listening; Patient education & monitoring. Response: Pt returned to his room after dinner to nap. Pt awaken for HS meds and he took his meds. Denies any pain and just wants to sleep. Pt declined a snack. Pt states his day was good. Pt took HS meds and went back to sleep. Plan: Pt is conserved and awaiting placement.
[2022-10-27 08:00] VITALS: BP 102/52
[2022-10-27] MEDS: ibuprofen tablet 400 MG TABLET PO PRN ×2 (08:11→11:59)
[2022-10-27] MEDS: acetaminophen 325mg tablet PO PRN ×2 (08:11→12:00)
[2022-10-27] MEDS: QUEtiapine 25mg tablet PO SCH ×3 (08:14→20:10)
[2022-10-27] MEDS: nicotine 14mg patch - 24hr TD SCH (08:14)
[2022-10-27] MEDS: multivitamins, therapeutics tablet PO SCH (08:14)
[2022-10-27] MEDS: sertraline 50mg tablet PO SCH (08:14)
[2022-10-27] MEDS: benztropine 1mg tablet PO SCH ×2 (08:15→20:11)
[2022-10-27] MEDS: divalproex 250mg tablet, delayed-release PO SCH ×2 (08:15→20:10)
[2022-10-27] MEDS: docusate sod 100mg capsule PO SCH ×2 (08:15→20:11)
[2022-10-27] MEDS: lactobacillus rhamnosus 10,000 MMU CELLS/CAPSULE PO SCH (08:15)
[2022-10-27] MEDS: LORazepam 1 MG tablet PO SCH ×4 (08:15→20:11)
[2022-10-27] MEDS: haloperidol 5mg tablet PO SCH ×4 (08:15→20:11)
[2022-10-27] MEDS: buprenorphine/naloxone 2-0.5mg sublingual tablet SL SCH ×3 (08:16→20:11)
[2022-10-27] MEDS: benzocaine (Anbesol) 12ml bottle MM PRN (11:24)
[2022-10-27] MEDS: mag hydrox/Alum hydrox/simeth 30ml oral suspension PO PRN (17:09)
--- NOTE | 2022-10-27 17:15 | NUR ---
Nursing Progress Note Problem: Per 5150 pt. is here for SA by OD on street drugs after command hallucinations telling him to do so. Pt. states that he took "Fentanyl, black china, meth, 8 ball" in suicide attempt. Pt. states he feels hopeless. Pt. is also delusional, stating, "They won't give me my billion dollars". Pt. states, "I tried killing myself because Im a free michelle. They dont love me but I love them. Yes I do." Interventions: Provide medication administration & medication management; Maintained a safe & supportive environment; Clear & simple instructions; Direction & encouragement regarding performance of ADLs; monitored behaviors & maintained clear boundaries; Patient physical assessment & 1:1 patient interview; Therapeutic conversation & active listening; Patient education & monitoring. Response: Received patient at approximately 0815 when he woke up for breakfast. Patient immediately stated I dont want to eat breakfast today. Patient took his morning medications and returned to his room for approximately 2 hours. Patient came out at 10:00 and walked multiple laps in the hallway with another peer. Patient reported My stomach feels sick. Encouraged the patient to eat at snack time and drink lots of fluids today so he doesnt feel much worse. Patient denied nausea. Patient returned to sleep in his bed, refusing lunch, from 1300 to 1650. Patient took his afternoon medications then said I need to drink some fluids, Im feeling run down so Im going to eat my dinner and ambulate in the hallway until bedtime. Patient appears to be feeling more upbeat and much less subdued and appearing less depressed than earlier today. Patient smiled when he was informed that Kal from [employer] stopped by to see him about 30 minutes prior to him waking up. Patient had a great big smile and said I sure love him. Will continue to help patient maintain a positive outlook with reinforcing his many days of great behavior. Patient continued at approximately 1715 to c/o "stomach ache," and he was given Maalox at this time. Will continue to monitor. Plan: Pt is conserved and awaiting placement.
[2022-10-27 19:30] VITALS: BP 103/61
[2022-10-27] MEDS: quetiapine 100mg tablet PO SCH (20:10)
[2022-10-27] MEDS: psyllium seed 3.4 gm packet PO SCH (20:11)
--- NOTE | 2022-10-27 23:33 | NUR ---
Nursing Progress Note Problem: Per 5150 pt. is here for SA by OD on street drugs after command hallucinations telling him to do so. Pt. states that he took "Fentanyl, black china, meth, 8 ball" in suicide attempt. Pt. states he feels hopeless. Pt. is also delusional, stating, "They won't give me my billion dollars". Pt. states, "I tried killing myself because Im a free michelle. They dont love me but I love them. Yes I do." Interventions: Provide medication administration & medication management; Maintained a safe & supportive environment; Clear & simple instructions; Direction & encouragement regarding performance of ADLs; monitored behaviors & maintained clear boundaries; Patient physical assessment & 1:1 patient interview; Therapeutic conversation & active listening; Patient education & monitoring. Response: Pt was in bed at change of shift sleeping. Pt states he is feeling ok and denies any stomach ache. Pt denies s/i, denies a/vh. Pt states "Im just tired." Pt declines a snack and took HS meds. pt went back to sleep. Plan: Pt is conserved and awaiting placement.
[2022-10-28] MEDS: buprenorphine/naloxone 2-0.5mg sublingual tablet SL SCH ×3 (07:19→20:58)
[2022-10-28] MEDS: haloperidol 5mg tablet PO SCH ×4 (07:19→20:58)
[2022-10-28] MEDS: docusate sod 100mg capsule PO SCH ×2 (07:19→20:57)
[2022-10-28] MEDS: LORazepam 1 MG tablet PO SCH ×4 (07:19→20:57)
[2022-10-28] MEDS: divalproex 250mg tablet, delayed-release PO SCH ×2 (07:19→20:57)
[2022-10-28] MEDS: QUEtiapine 25mg tablet PO SCH ×3 (07:20→20:57)
[2022-10-28] MEDS: sertraline 50mg tablet PO SCH (07:20)
[2022-10-28] MEDS: lactobacillus rhamnosus 10,000 MMU CELLS/CAPSULE PO SCH (07:20)
[2022-10-28] MEDS: benztropine 1mg tablet PO SCH ×2 (07:20→20:58)
[2022-10-28] MEDS: multivitamins, therapeutics tablet PO SCH (07:20)
[2022-10-28] MEDS: nicotine 14mg patch - 24hr TD SCH (07:21)
[2022-10-28 07:52] VITALS: BP 105/69
[2022-10-28] MEDS: acetaminophen 325mg tablet PO PRN ×2 (08:29→14:32)
[2022-10-28] MEDS: NICOTINE POLACRILEX 2 MG LOZENGE BC PRN (08:30)
[2022-10-28] MEDS: benzocaine (Anbesol) 12ml bottle MM PRN (10:58)
[2022-10-28] MEDS: LORazepam 1 MG tablet PO PRN (11:33)
[2022-10-28] MEDS: haloperidol 5mg tablet PO PRN (11:34)
--- NOTE | 2022-10-28 17:10 | NUR ---
Nursing Progress Note Problem: Per 5150 pt. is here for SA by OD on street drugs after command hallucinations telling him to do so. Pt. states that he took "Fentanyl, black china, meth, 8 ball" in suicide attempt. Pt. states he feels hopeless. Pt. is also delusional, stating, "They won't give me my billion dollars". Pt. states, "I tried killing myself because Im a free michelle. They dont love me but I love them. Yes I do." Interventions: Provide medication administration & medication management; Maintained a safe & supportive environment; Clear & simple instructions; Direction & encouragement regarding performance of ADLs; monitored behaviors & maintained clear boundaries; Patient physical assessment & 1:1 patient interview; Therapeutic conversation & active listening; Patient education & monitoring. Response: Pt awoke at 0645 requesting a shower. Pt then requested his morning medications at 0720 in hopes his Suboxone would help decrease his tooth pain. Pt later requested his PRN Tylenol at 0830 and anbesol at 11am for tooth pain. Pt stated the anbesol worked really well. 1:1 done at bedside. At approx. 1135AM pt. received a phone call from his cousin informing Christophe his cousin from a fentanyl overdose. Christophe became upset, crying and shouting. PRN Haldol and Ativan administered at this time. Christophe has been pacing the halls, calmly and appropriately. PRN Tylenol administered once again at 1430 for tooth pain. Pt resting now in his room on his bed. Plan: Pt is conserved and awaiting placement.
[2022-10-28 19:45] VITALS: BP 128/68
[2022-10-28] MEDS: quetiapine 100mg tablet PO SCH (20:57)
[2022-10-28] MEDS: psyllium seed 3.4 gm packet PO SCH (20:58)
--- NOTE | 2022-10-29 04:02 | NUR ---
Nursing Progress Note Problem: Per 5150 pt. is here for SA by OD on street drugs after command hallucinations telling him to do so. Pt. states that he took "Fentanyl, black china, meth, 8 ball" in suicide attempt. Pt. states he feels hopeless. Pt. is also delusional, stating, "They won't give me my billion dollars". Pt. states, "I tried killing myself because Im a free michelle. They dont love me but I love them. Yes I do." Interventions: Provide medication administration & medication management; Maintained a safe & supportive environment; Clear & simple instructions; Direction & encouragement regarding performance of ADLs; monitored behaviors & maintained clear boundaries; Patient physical assessment & 1:1 patient interview; Therapeutic conversation & active listening; Patient education & monitoring. Response: Upon turn of shift noted patient noted patient sleeping in bed. Did not get up for snack. Awoke for HS meds. Drowsy, sad affect, calm and cooperative. No eye contact given. Thoughts and speech clear. Was compliant with HS meds. No PRN meds given. Patient stated that he removed his nicotine patch himself earlier. Checked chest, shoulders and arms and found no patch. Denies SI, HI, and A/V H. Went back to sleep after medication administration. No odd behaviors noted. Slept throughout the night without any complaints. Will continue to monitor. Plan: Pt is conserved and awaiting placement.
[2022-10-29] MEDS: QUEtiapine 25mg tablet PO SCH ×3 (07:29→21:14)
[2022-10-29] MEDS: docusate sod 100mg capsule PO SCH ×2 (07:29→21:12)
[2022-10-29] MEDS: sertraline 50mg tablet PO SCH (07:29)
[2022-10-29] MEDS: multivitamins, therapeutics tablet PO SCH (07:29)
[2022-10-29] MEDS: haloperidol 5mg tablet PO SCH ×4 (07:30→21:14)
[2022-10-29] MEDS: LORazepam 1 MG tablet PO SCH ×4 (07:30→21:13)
[2022-10-29] MEDS: divalproex 250mg tablet, delayed-release PO SCH ×2 (07:30→21:13)
[2022-10-29] MEDS: benztropine 1mg tablet PO SCH ×2 (07:30→21:12)
[2022-10-29] MEDS: lactobacillus rhamnosus 10,000 MMU CELLS/CAPSULE PO SCH (07:30)
[2022-10-29] MEDS: nicotine 14mg patch - 24hr TD SCH (07:31)
[2022-10-29 07:50] VITALS: BP 94/50
[2022-10-29] MEDS: buprenorphine/naloxone 2-0.5mg sublingual tablet SL SCH ×3 (08:25→21:13)
[2022-10-29] MEDS: acetaminophen 325mg tablet PO PRN (11:11)
[2022-10-29] MEDS: benzocaine (Anbesol) 12ml bottle MM PRN (12:15)
[2022-10-29 12:33] LABS: BASOPHILS % (AUTO) 0.8 % (0-1); EOSINOPHILS # (AUTO) 0.5 X10'3 (0-0.9); EOSINOPHILS % (AUTO) 13.3 % (0-6); HEMATOCRIT 38.9 % (42.0-52.0); HEMOGLOBIN 13.3 g/dl (14.0-17.9); LYMPHOCYTES # (AUTO) 1.2 X10'3 (1.1-4.8); LYMPHOCYTES % (AUTO) 31.5 % (21-51); MEAN CORPUSCULAR HGB CONC 34.1 g/dL (33.0-36.5); MEAN CORPUSCULAR VOLUME 91.1 FL (78-98); MEAN PLATELET VOLUME 7.5 FL (7.4-10.4); MONOCYTES # (AUTO) 0.3 X10'3 (0-0.9); NEUTROPHILS # (AUTO) 1.9 X10'3 (1.8-7.7); NEUTROPHILS % (AUTO) 47.4 % (42-75); PLATELET COUNT 168 X10'3 (140-440); RED BLOOD COUNT 4.28 X10'6 (4.70-6.10); RED CELL DISTRIBUTION WIDTH 12.9 % (11.5-14.5); WHITE BLOOD COUNT 3.9 X10'3 (4.5-11.0)
[2022-10-29 12:47] LABS: ALANINE AMINOTRANSFERASE 26 U/L (12-78); ALBUMIN 3.8 G/DL (3.4-5.0); ALBUMIN/GLOBULIN RATIO 1.2 (1.1-1.5); ALKALINE PHOSPHATASE 90 IU/L (46-116); ANION GAP 4 (8-16); ASPARTATE AMINO TRANSFERASE 23 U/L (10-37); BILIRUBIN,TOTAL 0.5 MG/DL (0.1-1.0); BLOOD UREA NITROGEN 11 MG/DL (7-18); BUN/CREATININE RATIO 12.8 (5.4-32.0); CALCIUM 8.9 MG/DL (8.5-10.1); CHLORIDE 105 MMOL/L (99-107); CREATININE 0.86 MG/DL (0.60-1.10); GLUCOSE 87 MG/DL (70-104); POTASSIUM 4.6 MMOL/L (3.5-5.1); SODIUM 140 MMOL/L (135-145); TOTAL CARBON DIOXIDE 31.2 MMOL/L (24-32); eGFR > 90 ML/MIN
[2022-10-29] MEDS: LORazepam 1 MG tablet PO PRN (13:22)
[2022-10-29] MEDS: haloperidol 5mg tablet PO PRN (13:22)
--- NOTE | 2022-10-29 15:58 | NUR ---
Nursing Progress Note Problem: Per 5150 pt. is here for SA by OD on street drugs after command hallucinations telling him to do so. Pt. states that he took "Fentanyl, black china, meth, 8 ball" in suicide attempt. Pt. states he feels hopeless. Pt. is also delusional, stating, "They won't give me my billion dollars". Pt. states, "I tried killing myself because Im a free michelle. They dont love me but I love them. Yes I do." Interventions: Provide medication administration & medication management; Maintained a safe & supportive environment; Clear & simple instructions; Direction & encouragement regarding performance of ADLs; monitored behaviors & maintained clear boundaries; Patient physical assessment & 1:1 patient interview; Therapeutic conversation & active listening; Patient education & monitoring. Response: Pt. asleep at change of shift, awoke at 0645 requesting a shower. Pt showered and then requested his AM medications. 1:1 done at bedside and medications administered with the exception of his suboxone. Pt requested to take his suboxone after breakfast stating it makes him nauseas if he takes it on an empty stomach. Denies A/VH at this time. Denies S/HI stating, Im just down because I cant go to my cousins . Pt seen pacing the hallways with facility headphones. PRN Tylenol and anbesol administered this shift for tooth pain. No behaviors this shift. Plan: Pt is conserved and awaiting placement.
[2022-10-29 19:00] VITALS: BP 100/47
[2022-10-29] MEDS: quetiapine 100mg tablet PO SCH (21:14)
[2022-10-29] MEDS: psyllium seed 3.4 gm packet PO SCH (21:14)
--- NOTE | 2022-10-30 04:58 | NUR ---
Nursing Progress Note Problem: Per 5150 pt. is here for SA by OD on street drugs after command hallucinations telling him to do so. Pt. states that he took "Fentanyl, black china, meth, 8 ball" in suicide attempt. Pt. states he feels hopeless. Pt. is also delusional, stating, "They won't give me my billion dollars". Pt. states, "I tried killing myself because Im a free michelle. They dont love me but I love them. Yes I do." Interventions: Provide medication administration & medication management; Maintained a safe & supportive environment; Clear & simple instructions; Direction & encouragement regarding performance of ADLs; monitored behaviors & maintained clear boundaries; Patient physical assessment & 1:1 patient interview; Therapeutic conversation & active listening; Patient education & monitoring. Response: Upon turn of shift noted patient noted patient sleeping in bed. Did not get up for snack. Awoke him for HS meds. Drowsy, sad affect, calm and cooperative. Reports being mad at [place] for not letting him attend his cousins . No eye contact given. Thoughts and speech clear. Was compliant with HS meds. No PRN meds given. Patient stated that he removed his nicotine patch himself earlier. No patch noted. Denies SI, HI, and A/V H. Got up to use BR then laid back down to sleep. No odd behaviors noted. Slept throughout the night without any complaints. Will continue to monitor. Plan: Pt is conserved and awaiting placement.
--- NOTE | 2022-10-30 07:30 | NUR ---
F/u 10/30: Pt PO mostly ~75-100% avg meals w/ occasional fluctuations and snacks likely meeting estimated needs. Noted pt WBC 3.9 yesterday still receiving routine probiotic; COLT d/w RN regarding holding probiotic until WBC improved if MD agreeable. LBM 10/29 per EMR. No nutrition interventions at this time. Will continue to follow. Recommendations: 1) Continue Vegetarian diet per pt request; double eggs WB; cottage cheese/peaches/salad WL; encourage PO intake. Liberalize to regular diet if pt agreeable to assist meeting needs 2) MVI supplementation per MD 3) Bowel care PRN; consider holding probiotic w/ WBC <4.0 per physician discretion 4) Weekly scaled weights Addendum: 10/30/22 at [address] Amended: Links added.
[2022-10-30 08:00] VITALS: BP 100/61
[2022-10-30] MEDS: nicotine 14mg patch - 24hr TD SCH (08:28)
[2022-10-30] MEDS: lactobacillus rhamnosus 10,000 MMU CELLS/CAPSULE PO SCH (08:29)
[2022-10-30] MEDS: LORazepam 1 MG tablet PO SCH ×4 (08:29→20:25)
[2022-10-30] MEDS: benztropine 1mg tablet PO SCH ×2 (08:29→20:25)
[2022-10-30] MEDS: docusate sod 100mg capsule PO SCH ×2 (08:29→20:25)
[2022-10-30] MEDS: QUEtiapine 25mg tablet PO SCH ×3 (08:30→20:28)
[2022-10-30] MEDS: divalproex 250mg tablet, delayed-release PO SCH ×2 (08:30→20:25)
[2022-10-30] MEDS: haloperidol 5mg tablet PO SCH ×4 (08:30→20:25)
[2022-10-30] MEDS: multivitamins, therapeutics tablet PO SCH (08:30)
[2022-10-30] MEDS: sertraline 50mg tablet PO SCH (08:31)
[2022-10-30] MEDS: ibuprofen tablet 400 MG TABLET PO PRN ×2 (08:31→14:04)
[2022-10-30] MEDS: buprenorphine/naloxone 2-0.5mg sublingual tablet SL SCH ×3 (08:31→20:25)
[2022-10-30] MEDS: benzocaine (Anbesol) 12ml bottle MM PRN ×2 (09:01→11:58)
[2022-10-30] MEDS: acetaminophen 325mg tablet PO PRN (09:55)
--- NOTE | 2022-10-30 09:57 | NUR ---
Pt's daily Culturelle capsule was discontinued by DANIEL Delgado per recommendation of the pcas.
[2022-10-30] MEDS: NICOTINE POLACRILEX 2 MG LOZENGE BC PRN (11:49)
--- NOTE | 2022-10-30 12:40 | NUR ---
Nursing Progress Note: Problem : Per 5150 pt. is here for SA by OD on street drugs after command hallucinations telling him to do so. Pt. states that he took "Fentanyl, black china, meth, 8 ball" in suicide attempt. Pt. states he feels hopeless. Pt. is also delusional, stating, "they won't give me my billion dollars". Pt. states, "I tried killing myself because Im a free michelle. They dont love me but I love them. Yes I do." Interventions : Maintained a safe and supportive environment, ensured contract for safety, provided clear and simple instructions, monitored behavior and maintained behavior plan, provided active listening and positive encouragement,and maintained Q 15min safety checks. Response : Received pt. sleeping in bed at the beginning of the shift. He awoke and continues to present with restlessness AEB pacing the unit aimlessly, wearing headphones at intervals. Pt. greeted this underwriter appropriately and continues to c/o chronic tooth pain. PRN Motrin, Tylenol, and Anbesol was administered with effectiveness. Pt. has an upcoming dentist appointment. Pt. did not make any delusional statements or exhibit any agitated outbursts this shift; a behavior plan remains in place and pt. appears to be responding to this well. Pt. does admit to some ongoing depression and anxiety r/t his desire to discharge. Pt. did not attend group, but was observed to be pacing in the hallway talking to a peer at this time. This underwriter will encourage pt. to attend groups and continue to monitor him closely. Plan :Pt. continues to require a safe and supportive environment and medication adjustments.
[2022-10-30] MEDS: LORazepam 1 MG tablet PO PRN (14:04)
--- NOTE | 2022-10-30 14:05 | NUR ---
PRNs Administered: Ativan 2mg Interventions Offered: Active listening, positive encouragement, and quiet environment. Response to Medication: Pt. reported increased anxiety and agitation r/t a telephone phone call with his family. He requested anxiolytic medication, medication was provided and will continue to monitor pt. closely.
[2022-10-30 19:28] VITALS: BP 115/64
[2022-10-30] MEDS: quetiapine 100mg tablet PO SCH (20:25)
[2022-10-30] MEDS: psyllium seed 3.4 gm packet PO SCH (20:25)
--- NOTE | 2022-10-31 04:24 | NUR ---
Nursing Progress Note: Problem: Per 5150 pt. is here for SA by OD on street drugs after command hallucinations telling him to do so. Pt. states that he took "Fentanyl, black china, meth, 8 ball" in suicide attempt. Pt. states he feels hopeless. Pt. is also delusional, stating, "they won't give me my billion dollars". Pt. states, "I tried killing myself because Im a free michelle. They dont love me but I love them. Yes I do." Interventions: Maintained a safe and supportive environment, ensured contract for safety, provided clear and simple instructions, monitored behavior and maintained behavior plan, provided active listening and positive encouragement,and maintained Q 15min safety checks. Response: Patient is pleasant and cooperative with care; compliant with medication. Patient denies SI, HI, A/VH; appears depressed and isolates to his room. Patient refused HS snack because it is "too fattening." No negative behaviors or agitation presented this shift. Observed sleeping and does not appear to be having difficulty. Plan: Pt. continues to require a safe and supportive environment and medication adjustments.
--- NOTE | 2022-10-31 05:38 | NUR ---
ASSOCIATE PRINCIPAL documentation: I have reviewed all interventions, assessments performed and documented by Shey JOHNSON.
[2022-10-31] MEDS: docusate sod 100mg capsule PO SCH ×2 (07:10→20:28)
[2022-10-31] MEDS: QUEtiapine 25mg tablet PO SCH ×3 (07:10→20:28)
[2022-10-31] MEDS: benztropine 1mg tablet PO SCH ×2 (07:10→20:28)
[2022-10-31] MEDS: divalproex 250mg tablet, delayed-release PO SCH ×2 (07:11→20:28)
[2022-10-31] MEDS: buprenorphine/naloxone 2-0.5mg sublingual tablet SL SCH ×3 (07:11→20:28)
[2022-10-31] MEDS: LORazepam 1 MG tablet PO SCH ×4 (07:11→20:28)
[2022-10-31] MEDS: multivitamins, therapeutics tablet PO SCH (07:11)
[2022-10-31] MEDS: haloperidol 5mg tablet PO SCH ×4 (07:11→20:28)
[2022-10-31] MEDS: sertraline 50mg tablet PO SCH (07:11)
[2022-10-31] MEDS: nicotine 14mg patch - 24hr TD SCH (07:12)
[2022-10-31] MEDS: benzocaine (Anbesol) 12ml bottle MM PRN ×2 (07:15→13:10)
[2022-10-31 08:00] VITALS: BP 109/57
[2022-10-31] MEDS: acetaminophen 325mg tablet PO PRN (10:02)
[2022-10-31] MEDS: NICOTINE POLACRILEX 2 MG LOZENGE BC PRN (12:13)
[2022-10-31] MEDS: ibuprofen tablet 400 MG TABLET PO PRN (13:10)
[2022-10-31] MEDS: LORazepam 1 MG tablet PO PRN (14:22)
--- NOTE | 2022-10-31 16:50 | NUR ---
Nursing Progress Note: Christophe Problem: Per 5150 pt. is here for SA by OD on street drugs after command hallucinations telling him to do so. Pt. states that he took "Fentanyl, black china, meth, 8 ball" in suicide attempt. Pt. states he feels hopeless. Pt. is also delusional, stating, "They won't give me my billion dollars". Pt. states, "I tried killing myself because Im a free michelle. Currently on LPS Interventions: Maintained a safe and supportive environment, provided clear and simple instructions, attempted to orient to reality, monitored behaviors and provided structure and limit setting, obtained orders for seclusion and chemical restraints, provided medications as needed. Response: Pt. received asleep at change of shift. He ate breakfast and took his medications without hesitation. Pt. denies SI,HI, AH,VH and continues to wait on placement. He later c/o CUETO and dental pain; PRN Tylenol and Ambesol given with good results. Pt. spent most of the morning walking around the unit slowly and listening to headphone. He approached this development writer numerous times to perseverate on his recent weight loss of 7 lbs and meal planning. He presents with a flat affect and is down casted. He sat in the tv room with male cohorts briefly, and c/o RUQ dental pain and nicotine withdraw; PRN Motrin and nicotine lozenges administered with good results. Pt. ate all meals in the dining area with cohorts, but often ate alone in a chair with his tray on his lap.. Pt. approached development writer at 1420 requesting something for anxiety, he reported Im never going to get out of here PRN Ativan administered and encouraged pt. to focus on positive accomplishments and recommended an activity to keep busy; pt. not receptive. Pt. presents with poor oral hygiene, groomed, and wears street clothes Plan: Pt is conserved and awaiting placement Addendum: 10/31/22 at 1715 by Tori Yeboah RN FILLER SIFTER HELPER documentation: I have reviewed and agree with all interventions, assessments performed and documented by Araseli Koch LVN.
--- NOTE | 2022-10-31 17:16 | NUR ---
ALEX documentation: I have reviewed and agree with all interventions, assessments performed and documented by Araseli Koch LVN.
[2022-10-31 19:38] VITALS: BP 107/66
[2022-10-31] MEDS: psyllium seed 3.4 gm packet PO SCH (20:27)
[2022-10-31] MEDS: quetiapine 100mg tablet PO SCH (20:28)
--- NOTE | 2022-11-01 03:26 | NUR ---
NOTEREADER documentation: I have reviewed and agree with all interventions, assessments performed and documented by Natalya Medellin
--- NOTE | 2022-11-01 03:49 | NUR ---
Nursing Progress Note: Problem: Per 5150 pt. is here for SA by OD on street drugs after command hallucinations telling him to do so. Pt. states that he took "Fentanyl, black [place], meth, 8 ball" in suicide attempt. Pt. states he feels hopeless. Pt. is also delusional, stating, "they won't give me my billion dollars". Pt. states, "I tried killing myself because Im a free michelle. They dont love me but I love them. Yes I do." Interventions: Maintained a safe and supportive environment, ensured contract for safety, provided clear and simple instructions, monitored behavior and maintained behavior plan, provided active listening and positive encouragement,and maintained Q 15min safety checks. Response: Patient is pleasant and cooperative with are; compliant with medication. No Nicotine patch found. He denies MH Sx but appears depressed; patient reports to be "stressed" regarding discharge plans. Patient continues to isolate to his room and refuses HS snack; observed sleeping with no apparent difficulties. Plan: Pt. continues to require a safe and supportive environment and medication adjustments.
[2022-11-01] MEDS: QUEtiapine 25mg tablet PO SCH ×2 (07:34→12:53)
[2022-11-01] MEDS: haloperidol 5mg tablet PO SCH ×3 (07:34→14:48)
[2022-11-01] MEDS: sertraline 50mg tablet PO SCH (07:34)
[2022-11-01] MEDS: divalproex 250mg tablet, delayed-release PO SCH (07:34)
[2022-11-01] MEDS: benztropine 1mg tablet PO SCH (07:34)
[2022-11-01] MEDS: LORazepam 1 MG tablet PO SCH ×3 (07:34→14:48)
[2022-11-01] MEDS: docusate sod 100mg capsule PO SCH (07:34)
[2022-11-01] MEDS: buprenorphine/naloxone 2-0.5mg sublingual tablet SL SCH ×2 (07:34→14:48)
[2022-11-01] MEDS: multivitamins, therapeutics tablet PO SCH (07:35)
[2022-11-01] MEDS: nicotine 14mg patch - 24hr TD SCH (07:35)
[2022-11-01 08:00] VITALS: BP 113/79
[2022-11-01] MEDS: NICOTINE POLACRILEX 2 MG LOZENGE BC PRN ×2 (08:15→10:53)
[2022-11-01] MEDS: acetaminophen 325mg tablet PO PRN (08:15)
[2022-11-01] MEDS: benzocaine (Anbesol) 12ml bottle MM PRN ×2 (09:24→13:24)
[2022-11-01] MEDS: ibuprofen tablet 400 MG TABLET PO PRN (13:24)
[2022-11-01] MEDS ORDERED: psyllium seed packet PO (14:22)
[2022-11-01] MEDS ORDERED: ANBESOL MM (14:22)
[2022-11-01] MEDS ORDERED: MAG30ORA PO (14:22)
[2022-11-01] MEDS ORDERED: MAGN400O6 PO (14:22)
[2022-11-01] MEDS ORDERED: DOCU100C40 PO (14:22)
[2022-11-01] MEDS ORDERED: NICO-907 BC (14:22)
[2022-11-01] MEDS ORDERED: IBUP-1984 PO (14:22)
[2022-11-01] MEDS ORDERED: MULT-25 PO (14:22)
[2022-11-01] MEDS ORDERED: NICO-631 TD (14:22)
[2022-11-01] MEDS ORDERED: BUPR1TAB44 SL (14:22)
[2022-11-01] MEDS ORDERED: LOPE2CAP PO (14:22)
[2022-11-01] MEDS ORDERED: DIVA250T4 PO (14:22)
[2022-11-01] MEDS ORDERED: BENZ1TAB90 PO (14:22)
[2022-11-01] MEDS ORDERED: SERT-433 PO (14:22)
[2022-11-01] MEDS ORDERED: ATI1T PO ×2 (14:32)
[2022-11-01] MEDS ORDERED: HALO5TAB PO ×2 (14:32)
[2022-11-01] MEDS ORDERED: QUET25TA36 PO (14:32)
[2022-11-01] MEDS ORDERED: QUET100T34 PO (14:32)
[2022-11-01] MEDS ORDERED: ACET-1008 PO (14:32)
--- NOTE | 2022-11-01 14:35 | NUR ---
Discharge Note: Pt. was discharged off the unit accompanied by staff and security to a transport vehicle which will be taking him to [facility] in [facility]. Pt's belongings were inventoried and returned to him by [facility]. Pt's discharge packet and paperwork was faxed to his conservator. A copy of pt's most recent negative Covid test was faxed to [facility] per their request. Pt. was administered his scheduled Ativan and Haldol prior to discharge r/t report of anxiety.
== END 2022-11-01 14:35 | DRG 750 ==
LOC: ADULT MH 21:30
PROVIDERS: ADMIT Psychiatry & Neurology Psychiatry; ATTEND Psychiatry & Neurology Psychiatry
DX: F25.9 Schizoaffective disorder, unspecified (principal); E72.20 Disorder of urea cycle metabolism, unspecified; E87.1 Hypo-osmolality and hyponatremia; K04.7 Periapical abscess without sinus; S00.12XA Contusion of left eyelid and periocular area, initial encounter; F10.10 Alcohol abuse, uncomplicated; Z20.822 Contact with and (suspected) exposure to COVID-19; K59.00 Constipation, unspecified; K92.1 Melena; L03.032 Cellulitis of left toe; R06.83 Snoring; M21.42 Flat foot [pes planus] (acquired), left foot; Y04.0XXA Assault by unarmed brawl or fight, initial encounter; Y92.238 Other place in hospital as the place of occurrence of the external cause; R07.89 Other chest pain; F11.23 Opioid dependence with withdrawal; F15.10 Other stimulant abuse, uncomplicated; F17.290 Nicotine dependence, other tobacco product, uncomplicated; F41.9 Anxiety disorder, unspecified; G89.29 Other chronic pain; J45.909 Unspecified asthma, uncomplicated; Z79.899 Other long term (current) drug therapy; Z56.0 Unemployment, unspecified; Z88.5 Allergy status to narcotic agent; Z71.6 Tobacco abuse counseling; Y93.89 Activity, other specified; Y99.8 Other external cause status
CPT/HCPCS: 36415; 70486; 73610; 80053; 80061; 80164; 82140; 82728; 83036; 83540; 83550; 84145; 84443; 84466; 85025; 85045; 87081; 87811; 93005; C2617; J0515; J1200; J1630; J2060; J3490; Q0163; Q9967